=== PATIENT | female | born 1945 | race African-American/Black ===

== ENCOUNTER 2021-11-03 10:41 | Outpatient (CLI) | payer OTHER, SELFPAY ==
--- OUTSIDE RECORDS SUMMARY | 2021-11-16 12:40 | XMS_ITS | Encounter Summary ---
:1945 Author Organization [employer] [facility] [employer] Address [address] [place] [id number] Phone Care Team Providers Name Role Phone Unavailable Primary Care Provider Unavailable Reason for Visit Reason Onset Date Comments Results 10/01/2019 Encounter Details Date Type Department Care Team Description 10/01/2019 [facility] Deena Hadley RN Results [address] [place] [address] Social History Tobacco Use Types Packs/Day Years Used Date Never Smoker Alcohol Use Standard Drinks/Week Comments Yes 0 (1 standard drink = 0.6 oz pure Alcoho lic Drinks/day: 1 -2 glass of alcohol) wine per week Sex Assigned at Date Recorded Not on file documented as of this encounter Miscellaneous Notes Telephone Encounter - Deena Hadley RN - 10/01/2019 2:01 PM CDT Courtney stopped her amlodipine, valsartan and chlorthalidone after the phone visit on 08/07. I did confirm that she was taking coreg and furosemide BID as prescribed. Telephone Encounter - Deena Hadley RN - 10/01/2019 12:29 PM CDT Pt report to Dr. Kern the amlodipine was stopped. He asked that I call and have her check her pill bottles to make sure she was not still on this. I left a detailed message for Courtney and Irma, her daughter. I instructed them to call back only if they realize she is taking amlodipine. elephone Encounter - Deena Hadley RN - 10/01/2019 10:[address] Kern, BP too high for safe biopsy today. Verbal orders to call in amlodipine 5mg BID, #60 with 5 refills. I called that to pharmacy, but also texted Dr. Kern to clarify as 10mg was already on pts med list qd. Wanted to clarify whether pt has stopped this or she did not report to him that she was on it, etc. documented in this encounter Plan of Treatment Not on filedocumented as of this encounter Visit Diagnoses Not on filedocumented in this encounter
--- OUTSIDE RECORDS SUMMARY | 2021-11-16 12:40 | XMS_ITS | Clinical Summary ---
:1945 Author Organization [facility] [employer] Address [address] [place] [phone] Phone Care Team Providers Name Role Phone Eusebia Whitaker MD Primary Care Provider Allergies Active Allergy Reactions Severity Noted Date Comments Simvastatin Dizziness 11/29/2017 Medications Medication Sig Dispensed Refills Start Date End Date Status Coenzyme Q10 (COQ10) 50 Take 1 capsule 0 02/05/2019 Active MG capsule daily acetaminophen (TYLENOL 8 Take 1 tab 0 02/07/2019 Active HOUR) 650 MG 8 hr tablet daily as needed oxybutynin (DITROPAN) 5 Take 1 tab by 0 02/05/2019 Active MG tablet mouth 2 times daily Multiple Vitamin tablet Take 1 tab 0 02/05/2019 Active daily Calcium Carbonate 500 MG Take 1 tab by 0 02/05/2019 Active chewable tablet mouth 2 times daily cholecalciferol (VITAMIN Take 1 tab 0 02/05/2019 Active D-3) 50 MCG (2000 UT) daily capsule atorvastatin (LIPITOR) Take 1 tab at 0 02/05/2019 Active 20 MG tablet bedtime furosemide (LASIX) 20 MG Take 1 tablet 180 tablet 1 08/11/2019 Active tablet (20 mg total) by mouth 2 (two) times a day carvedilol (COREG) 12.5 Take 1 tablet 180 tablet 1 08/11/2019 Active MG tablet (12.5 mg total) by mouth 2 (two) times a day with meals ferrous sulfate 325 (65 Take 325 mg by 0 Active Fe) MG tablet mouth 3 (three) times a day with meals amLODIPine (NORVASC) 5 Take 1 tablet 60 tablet 5 10/07/2019 Active MG tablet (5 mg total) by mouth 2 (two) times a day omeprazole (PriLOSEC) 20 Take 20 mg by [address] capsule mouth twice a day hydrALAZINE (APRESOLINE) TAKE 1 TABLET 270 tablet 1 04/30/2020 Active 25 MG tablet BY MOUTH THREE TIMES DAILY Active Problems Problem Noted Date Chronic kidney disease, stage 3 (moderate) 02/07/2019 Proteinuria 02/07/2019 Anemia 02/07/2019 FPC current use of non-steroidal anti-inflammato ameya 02/07/2019 Essential (primary) hypertension 02/07/2019 Hyperlipidemia 02/07/2019 Family History Medical History Relation Comments Kidney disease Neg Hx Social History Tobacco Use Types Packs/Day Years Used Date Never Smoker Smokeless Tobacco: Never Used Alcohol Use Standard Drinks/Week Comments Yes 0 (1 standard drink = 0.6 oz pure Alcoho lic Drinks/day: 1 -2 glass of alcohol) wine per week Sex Assigned at Date Recorded Not on file Last Filed Vital Signs Vital Sign Reading Time Taken Comments Blood Pressure 176/74 11/28/2019 12:28 PM CDT Pulse 60 11/28/2019 12:28 PM CDT Temperature 36.8 ??C (98.2 ??F) 11/28/2019 12:28 PM CDT Respiratory Rate - - Oxygen Saturation - - Inhaled Oxygen Concentration - - Weight 84.4 kg (186 lb) 11/28/2019 12:28 PM CDT Height 157.5 cm (5' 2) 11/28/2019 12:28 PM CDT Body Mass Index 34.02 11/28/2019 12:28 PM CDT Plan of Treatment Health Maintenance Due Date Last Done Comments Pneumococcal PPSV23/PCV13 65+ Years / High and Highest 0 Risk (1 - PCV) Influenza Vaccine (#1) 2021 Insurance Payer Benefit Plan / Subscriber ID Effective Dates Phone Addre ss Type Group PM INTERFACED PM INTERFACED 2019-Prese INSURANCE INSURANCE - OPEN nt Advance Directives For more information, please contact: [phone] (Available ) Documents on File Type Date Recorded Patient Sawyer Helper Explanati on Advance Directives and Living Will 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
--- OUTSIDE RECORDS SUMMARY | 2021-11-16 12:40 | XMS_ITS | Encounter Summary ---
:1945 Author Organization [employer] Address [address] [place] [address] Phone Care Team Providers Name Role Phone Unavailable Primary Care Provider Unavailable Reason for Visit Reason Onset Date Comments Med Refill 08/08/2019 Encounter Details Date Type Department Care Team Description 08/08/2019 Refill [facility] Deena Hadley RN [address] [facility] [address] [place], [place] [address] Social History Tobacco Use Types Packs/Day Years Used Date Never Smoker Alcohol Use Standard Drinks/Week Comments Yes 0 (1 standard drink = 0.6 oz pure Alcoho lic Drinks/day: 1 -2 glass of alcohol) wine per week Sex Assigned at Date Recorded Not on file documented as of this encounter Miscellaneous Notes Telephone Encounter - Deena Hadley RN - 08/08/2019 1:45 PM CDT Images from the original note were not included. Irma did call with the pharmacy information, but I was unable to find it in the [employer] database. Scripts called in as directed below. I faxed her labs order for 2 weeks. Will await those results and make further plans. MD Deena Harirson MA ?? D/C valsartan and Chlorthalidone Start Furosemide 20 mg BID , Coreg 12.5 mg BID ( monitor HR) . Irma will give you the details of local pharmacy in [place] when you call her. Labs at [place] in 2 wks. If stable / worse, pt will come back to [facility] and plan on getting a renal biopsy done. Labs - RFp, CBC, Iron panel , ferritin F/u 1 month documented in this encounter Plan of Treatment Not on filedocumented as of this encounter Visit Diagnoses Not on filedocumented in this encounter
--- OUTSIDE RECORDS SUMMARY | 2021-11-16 12:40 | XMS_ITS | Encounter Summary ---
:1945 Author Organization [facility] Address [address] [place] [address] Phone Care Team Providers Name Role Phone Eusebia Whitaker MD Primary Care Provider Encounter Details Date Type Department Care Team Description 12/25/2019 [facility] Deena Hadley, [place] [address] [facility] [address] [place], [place] [address] Social History Tobacco Use Types Packs/Day Years Used Date Never Smoker Smokeless Tobacco: Never Used Alcohol Use Standard Drinks/Week Comments Yes 0 (1 standard drink = 0.6 oz pure Alcoho lic Drinks/day: 1 -2 glass of alcohol) wine per week Sex Assigned at Date Recorded Not on file documented as of this encounter Miscellaneous Notes Telephone Encounter - Audi Maurer MD - 12/26/2019 12:26 PM CDT Sounds good. Thanks for update. elephone Encounter - Deena Hadley RN - 12/25/2019 3:33 PM CDT Courtney was scheduled for ECHO on 12/15. I never got the report and when I called [facility] they said she didn't have it done. I talked with her daughter, Irma, today. Courtney was admitted to [facility] in [place] shortly after visit here. ECHO was done there, results available in Care Everywhere.She also said that Dr. Whitaker has recommended they transfer nephrology care closer to home. They have an apt with Dr. Weeks, nephrology, on 01/07/20. I wished them well. documented in this encounter Plan of Treatment Not on filedocumented as of this encounter Visit Diagnoses Not on filedocumented in this encounter Care Teams Bulk Gas Specialist Relationship Specialty Start Date End Date Eusebia Whitaker MD PCP - General Family Medicine 11/24/19 [address] [facility] [address] [place] [address] documented as of this encounter
--- OUTSIDE RECORDS SUMMARY | 2021-11-16 12:40 | XMS_ITS | Encounter Summary ---
:1945 Author Organization [employer] Address [address] [place] [address] Phone Care Team Providers Name Role Phone Unavailable Primary Care Provider Unavailable Reason for Visit Reason Comments Med Refill Encounter Details Date Type Department Care Team Description 10/01/2019 Refill [facility] Adrian Kern MD [address] [facility] [address] [facility] [address] [place] [address] [place] [address] [phone] (Wo rk) Social History Tobacco Use Types Packs/Day Years Used Date Never Smoker Alcohol Use Standard Drinks/Week Comments Yes 0 (1 standard drink = 0.6 oz pure Alcoho lic Drinks/day: 1 -2 glass of alcohol) wine per week Sex Assigned at Date Recorded Not on file documented as of this encounter Miscellaneous Notes Telephone Encounter - Deena Hadley RN - 10/07/2019 12:08 PM CDT P documented in this encounter Plan of Treatment Not on filedocumented as of this encounter Visit Diagnoses Not on filedocumented in this encounter
--- OUTSIDE RECORDS SUMMARY | 2021-11-16 12:40 | XMS_ITS | Encounter Summary ---
:1945 Author Organization [facility] Address [address] [place] [address] Phone Care Team Providers Name Role Phone Eusebia Whitaker MD Primary Care Provider Reason for Visit Reason Comments Med Refill Encounter Details Date Type Department Care Team Description 04/30/2020 Refill [facility] Audi Maurer MD [address] [facility] [address] [facility] [address] [place] [address] [place] [address] [phone] (Wo rk) Social History Tobacco Use Types Packs/Day Years Used Date Never Smoker Smokeless Tobacco: Never Used Alcohol Use Standard Drinks/Week Comments Yes 0 (1 standard drink = 0.6 oz pure Alcoho lic Drinks/day: 1 -2 glass of alcohol) wine per week Sex Assigned at Date Recorded Not on file documented as of this encounter Plan of Treatment Not on filedocumented as of this encounter Visit Diagnoses Not on filedocumented in this encounter Care Teams Rehab Director Relationship Specialty Start Date End Date Eusebia Whitaker MD PCP - General Family Medicine 11/24/19 [address] [place] [address] documented as of this encounter
--- OUTSIDE RECORDS SUMMARY | 2021-11-16 12:40 | XMS_ITS | Encounter Summary ---
:1945 Author Organization [facility] [employer] Address [address] [place] [phone] Phone Care Team Providers Name Role Phone Eusebia Whitaker MD Primary Care Provider Reason for Visit Reason Onset Date Comments Lab results 11/10/2019 Encounter Details Date Type Department Care Team Description 11/10/2019 Telephone [facility] Shahrzad Choi RN Lab results [address] [place] [address] Social History Tobacco Use Types Packs/Day Years Used Date Never Smoker Alcohol Use Standard Drinks/Week Comments Yes 0 (1 standard drink = 0.6 oz pure Alcoho lic Drinks/day: 1 -2 glass of alcohol) wine per week Sex Assigned at Date Recorded Not on file documented as of this encounter Miscellaneous Notes Telephone Encounter - Deena Hadley RN - 11/24/2019 10:23 AM CDT [facility] called back this am. BP's have been 170-180/80-90's. Courtney is taking hydralazine 10mg BID still. I confirmed with Dr. Maurer that it would be okay to increase to the new order of 25mg TID and let Little know. New RX called in to the pharmacy. She knows to get Courtney started on this now so that we can see the effect Sunday at the apt. elephone Encounter - Deena Hadley RN - 11/21/2019 2:11 PM CDT LVM for [facility] with apt date and time and asking her to call to discuss BP log (and then recommendations). elephone Encounter - Audi Maurer MD - 11/20/2019 3:22 PM CDT I can see her at noon on 11/27. Will need to recheck iron profile then and see if she qualifies for [facility]. Bring home BP log. Increase hydralazine to 25 mg TID if BP > 140/90 consistently . elephone Encounter - Deena Hadley RN - 11/13/2019 2:19 PM CDT Records on your desk. Let me know if you have new recs. elephone Encounter - Audi Maurer MD - 11/13/2019 12:19 PM CDT Increase hydralazine to 12.5 mg TID> Let me know if we were able to get her records/ labs. Check how home Bp is doing. If still struggling, will add on to one of the clinic days. Telephone Encounter - Deena Hadley RN - 11/12/2019 10:17 AM CDT Update 11/11. I will get records from [facility] to confirm the information below. Irma called in to report that Courtney was seen this week for low hgb. They started omeprazole BID and said that Upper GI and colonoscopy from last year looked good. They recommended follow-up here for HTN. BP in their office was 180/89. They started hydralazine 10mg BID. I reviewed the other meds on our list with Irma who affirms Courtney is taking them all as directed. You mentioned follow-up. First available with you is 12/11. See [employer]AT W[employer]ER/PA? Overbook? elephone Encounter - Audi Maurer MD - 11/10/2019 9:37 PM CDT Thanks for the update. Agree that she needs work up for anemia with her PCP in setting of hemoccult positive stool. If the work up is neg, then she may need Aranesp. I had asked her to get back to us with labs and Bp log in 2 wks after attempted Bx. Please see if wecan get those lab results. Does she have an appt set up with me in near future? elephone Encounter - Shahrzad Choi RN - 11/10/2019 4:21 PM CDT Message from front end specialist that patient's daughter was asking for most recent labs to be faxed to Dr. Henson, pt's PCP. The most recent labs ordered by anyone in our clinic was 10/01/[address] Kern was attempting biopsy. I faxed those to Dr. Henson's office and attempted to daughter but there was no answer. They apparently were at a visit with Dr. Henson when Irma called. elephone Encounter - Shahrzad Choi RN - 11/10/2019 9:[address] Maurer and Deena Solis, pt's daughter, called to report that her mother has been feeling very fatigued and is sleeping all the time. Her BP has been averaging 171/80 but she was so concerned about the fatigue that she ran labs at her work (? Location) without orders (not sure how she was able to do that). She reports a Hgb of 9.2 (10.2 10/01/2019) with a creatinine of 2.3 (2.79 10/01/2019) . She also reports that the patient saw a provider at [facility] in [place] about two weeks ago and a hemoccult test was positive but nothing was done at that time. She has not seen any blood in the stool. Stool is dark butshe is taking iron supplements. She denies SOB or lightheadedness. I told her to contact the [facility] and advise on the drop in hgb in light of the positive Hemoccult test since we do not have any of these results. She will try to fax them to us. Otherwise, I recommended ER visit if she feels SOB, lightheaded, etc. brendanmented in this encounter Plan of Treatment Not on filedocumented as of this encounter Visit Diagnoses Not on filedocumented in this encounter Care Teams Hat Cone Inspector Relationship Specialty Start Date End Date Eusebia Whitaker MD PCP - General Family Medicine 11/24/[address] [place] [address] documented as of this encounter
--- OUTSIDE RECORDS SUMMARY | 2021-11-16 12:40 | XMS_ITS | Encounter Summary ---
:1945 Author Organization [facility] Address [address] [address] Phone Care Team Providers Name Role Phone Eusebia Whitaker MD Primary Care Provider Encounter Details Date Type Department Care Team Description 11/28/2019 Orders Only [facility] Audi Maurer MD [address] [facility] [address] [place] [address] [place], [place] [address] (Wo rk) Social History Tobacco Use Types [...] Not on filedocumented as of this encounter Procedures Procedure Name Priority Date/Time Associated Comments Diagnosis IMMUNOFIXATION (VLADIMIR), Routine 11/28/2019 11:55 Re sults for this URINE AM CDT procedure are i n the results section. MICROALBUMIN, RANDOM Routine 11/28/2019 11:55 Res ults for this URINE WITH CREATININE AM CDT proced ure are in the results section. URINALYSIS, COMPLETE, Routine 11/28/2019 11:55 Re sults for this W/ REFLEX TO CULTURE AM CDT procedu re are in the results section. KAPPA/LAMBDA FREE LIGHT Routine 11/28/2019 11:55 Results for this CHAINS, QN, SERUM AM CDT procedure are in the results section. VITAMIN D, 25-HYDROXY, Routine 11/28/2019 11:55 R esults for this SERUM AM CDT procedure are i n the results section. CBC (INCLUDES Routine 11/28/2019 11:55 Results fo r this DIFFERENTIAL/PLATELETS) AM CDT proc edure are in the results section. RENAL FUNCTION PANEL Routine 11/28/2019 11:55 Res ults for this (RFP) AM CDT procedure are i n the results section. RETICULOCYTE COUNT, Routine 11/28/2019 11:55 Resu lts for this SERUM AM CDT procedure are i n the results section. IMMUNOFIXATION, SERUM Routine 11/28/2019 11:55 Re sults for this AM CDT procedure are i n the results section. FERRITIN, SERUM Routine 11/28/2019 11:55 Results for this AM CDT procedure are i n the results section. ERYTHROPOIETIN, SERUM Routine 11/28/2019 11:55 Re sults for this AM CDT procedure are i n the results section. IRON AND TIBC, SERUM Routine 11/28/2019 11:55 Res ults for this AM CDT procedure are i n the results section. PTH INTACT W/O CALCIUM, Routine 11/28/2019 11:55 Results for this SERUM AM CDT procedure are i n the results section. documented in this encounter Results Vitamin D, 25-Hydroxy, Serum (11/28/2019 11:55 AM CDT) athologist Signature Calcidiol, 34 30 - 100 [facility] - Serum/Plasma ng/mL NISHA (NANCY) Comment: Vitamin D Status ? 25-OH Vitam in D: Deficiency: ?<20 ng/mL Insufficiency: ? 20 - 29 ng/mL Optimal: ? > or = 30 ng/mL For 25-OH Vitamin D testing on patients on D2-supplementation and patients for whom quantitation of D2 and D3 fractions is required, the QuestAssureD(TM) 25-OH VIT D, (D2,D3), LC/MS/MS is recomm ended: order code 32537 (patients >2yrs). See Note 1 Note 1 For additional information, please refer to http://education.[employer]/fa q/WAY523 (This link is being provided for informa tional/ educational purposes only.) Specimen Anatomical Collection Method Collection Time Receive d Time (Source) Location / / Volume Laterality 11/28/2019 11:55 11/28/2019 AM CDT 11:57 AM CDT Resulting Agency Comment Performing Organization Information: ?Site ID: [id number] ?Name: [facility] ?Address: [address] [place] [address] [place] [address] ?Director: Ramiro Fitzpatrick M.D. Audi Maurer MD LAB BLOOD ORDERABLES Performing Organization Address City/State/ZIP Code Phon e Number [facility] - [place] (WDL) (ABNORMAL) PTH Intact w/o Calcium, Serum (11/28/2019 11:55 AM CDT) athologist Signature PTH, Intact, 153 (H) 14 - 64 [facility] - Serum/Plasma pg/mL [place] (WDL) Comment: Interpretive Guide ?Intact PTH ? Calcium ? ------- Normal Parathyroid ?Normal ? Normal Hypoparathyroidism ?Low or Low Rebecca l ?Low Hyperparathyroidism ?? Primary ?Normal or H igh ? High ?? Secondary ?High ? Normal or Low ?? Tertiary ? High ? High Non-Parathyroid ?? Hypercalcemia ?Low or Low Nor mal ?High Specimen Anatomical Collection Method Collection Time Receive d Time (Source) Location / / Volume Laterality 11/28/2019 11:55 11/28/2019 AM CDT 11:57 AM CDT Resulting Agency Comment Performing Organization Information: ?Site ID: [id number] ?Name: [facility] ?Address: [address] [place], [place] [address] [address] ?Director: Ramiro Fitzpatrick M.D. Audi Maurer MD LAB BLOOD ORDERABLES Performing Organization Address City/[facility]/ZIP Code Phon e Number [facility] [place] ([place]) Ferritin, Serum (11/28/2019 11:55 AM CDT) P athologist Signature Ferritin, 42 16 - 288 [facility] - Serum/Plasma ng/mL [place] (WDL) Specimen Anatomical Collection Method Collection Time Receive d Time (Source) Location / / Volume Laterality 11/28/2019 11:55 11/28/2019 AM CDT 11:57 AM CDT Resulting Agency Comment Performing Organization Information: ?Site ID: [id number] ?Name: [facility] ?Address: [address] [place], [place] [address], [place] [address] ?Director: Ramiro Fitzpatrick M.D. Audi Maurer MD LAB BLOOD ORDERABLES Performing Organization Address City/[facility]/ZIP Code Phon e Number [facility] [place] ([place]) Erythropoietin, Serum (11/28/2019 11:55 AM CDT) Patholo gist Method Time Signature Erythropoietin 10.2 2.6 - 18.5 [facility] - (EPO), Serum/Plasma mIU/mL [place] (WDL) Specimen Anatomical Collection Method Collection Time Receive d Time (Source) Location / / Volume Laterality 11/28/2019 11:55 11/28/2019 AM CDT 11:57 AM CDT Resulting Agency Comment Performing Organization Information: ?Site ID: [id number] ?Name: [facility] ?Address: [address] [place], [place] [address] [address] ?Director: Ramiro Fitzpatrick M.D. Audi Maurer MD LAB BLOOD ORDERABLES Performing Organization Address City/State/ZIP Code Phon e Number [facility] [place] ([place]) (ABNORMAL) [place] and Lambda Free Light Chains, Qn, Serum (11/28/2019 11:55 AM CDT) P athologist Signature [place] light 86.3 (H) 3.3 - 19.4 [facility] - chains, free, mg/L [place] Serum (WDL) Lambda light 38.2 (H) 5.7 - 26.3 [facility] - chains, free, mg/L [place] Serum/Plasma (WDL) [place] light 2.26 (H) 0.26 - [facility] - chains, 1.65 [place] free/Lambda (WDL) light chains, free, Serum Comment: Free kappa/lambda ratio in serum of norm al individuals is 0.26-1.65. Excess production of free kappa or lambda chains can alter this ratio. Monoclonal free light chains are found in serum of patients wi th multiple myeloma, Waldenstrom's macroglobulinemia , mu-heavy chain disease, primary amyloidosis, light nikos n deposition disease, monoclonal gammopathy of undete rmined significance, and lymphoproliferative di sorders. Measurement of free light chain concentr ation in serum is useful for diagnosis, prognosis, farhan toring disease activity and following response to thera py of these disorders. Specimen Anatomical Collection Method Collection Time Receive d Time (Source) Location / / Volume Laterality 11/28/2019 11:55 11/28/2019 AM CDT 11:57 AM CDT Resulting Agency Comment Performing Organization Information: ?Site ID: [id number] ?Name: [facility] ?Address: [address] [place] [address] [place] [address] ?Director: Ramiro Fitzpatrick M.D. Audi Maurer MD LAB BLOOD ORDERABLES Performing Organization Address City/State/ZIP Code Phon e Number [facility] [place] ([place]) Immunofixation, Serum (11/28/2019 11:55 AM CDT) Component Value Ref Test Analysis Performed Pathologis t Range Method Time At Signature Immunofixation No monoclonal [facility] - for Serum/Plasma immunoglobulin [place] detected. (WDL) Specimen Anatomical Collection Method Collection Time Receive d Time (Source) Location / / Volume Laterality 11/28/2019 11:55 11/28/2019 AM CDT 11:57 AM CDT Resulting Agency Comment Performing Organization Information: ?Site ID: [id number] ?Name: [facility] ?Address: [address] [place], [place] [address], [place] [address] ?Director: Ramiro Fitzpatrick M.D. Audi Maurer MD LAB URINE ORDERABLES Performing Organization Address [facility] Phon e Number [facility] [place] ([place]) Immunofixation (VLADIMIR), Urine (11/28/2019 11:55 AM CDT) [facility] Method Time Signature Immunofixation for [facility] - Urine [place] (WDL) Comment: Polyclonal increase in the globulin mahendra on. ?? Polyclonal light chains are detected, ho wever, no monoclonal immunoglobulin or free light chain (Benc e-Alcaraz protein) is detected. Specimen Anatomical Collection Method Collection Time Receive d Time (Source) Location / / Volume Laterality 11/28/2019 11:55 11/28/2019 AM CDT 11:57 AM CDT Resulting Agency Comment Performing Organization Information: ?Site ID: [id number] ?Name: [facility] ?Address: [address] [place], [place] [address] [address] ?Director: Ramiro Fitzpatrick M.D. Audi Maurer MD LAB BLOOD ORDERABLES Performing Organization Address [facility] e Number [facility] [place] ([place]) (ABNORMAL) CBC (includes Differential/Platelets) (11/28/2019 11:55 AM CDT) [facility] Method Time Signature Leukocytes, Blood 5.6 3.8 - [facility] - 10.8 [place] Thousand/ (WDL) uL Erythrocytes 3.28 (L) 3.80 - [facility] - (RBC) 5.10 [place] Million/u (WDL) L Hemoglobin (HGB) 9.4 (L) 11.7 - [facility] - 15.5 g/dL [place] (WDL) Hematocrit (HCT) 28.2 (L) 35.0 - [facility] - 45.0 % [place] (WDL) MCV 86.0 80.0 - [facility] - 100.0 fL [place] (WDL) MCH 28.7 27.0 - [facility] - 33.0 pg [place] (WDL) MCHC 33.3 32.0 - [facility] - 36.0 g/dL [place] (WDL) Erythrocyte 13.3 11.0 - [facility] - Distribution 15.0 % [place] Width (RDW) (WDL) Platelets, Blood 251 140 - 400 [facility] - Thousand/ [place] uL (WDL) Platelet mean 11.5 7.5 - [facility] - volume, Blood 12.5 fL [place] (WDL) Neutrophils, 2,145 1,500 - [facility] - Blood 7,800 [place] cells/uL (WDL) Lymphocytes, 2,638 850 - [facility] - Blood 3,900 [place] cells/uL (WDL) Monocytes, Blood 454 200 - 950 [facility] - cells/uL [place] (WDL) Eosinophils, 314 15 - 500 [facility] - Blood cells/uL [place] (WDL) Basophils, Blood 50 0 - 200 [facility] - cells/uL [place] (WDL) Neutrophils/100 38.3 % [facility] - leukocytes, Blood [place] (WDL) Lymphocytes/100 47.1 % [facility] - leukocytes, Blood [place] (WDL) Monocytes/100 8.1 % [facility] - leukocytes, Blood [place] (WDL) Eosinophils/100 5.6 % [facility] - leukocytes, Blood [place] (WDL) Basophils/100 0.9 % [facility] - leukocytes, Blood [place] (WDL) Specimen Anatomical Collection Method Collection Time Receive d Time (Source) Location / / Volume Laterality 11/28/2019 11:55 11/28/2019 AM CDT 11:57 AM CDT Resulting Agency Comment Performing Organization Information: ?Site ID: [id number] ?Name: [facility] ?Address: [address] [place] [address] [place] [address] ?Director: Ramiro Fitzpatrick M.D. Audi Maurer MD LAB BLOOD ORDERABLES Performing Organization Address City/State/ZIP Code Phon e Number [facility] [place] ([place]) (ABNORMAL) Urinalysis, Complete, w/ Reflex to Culture (11/28/2019 11:55 AM CDT) [facility] Method Time Signature Color of Urine YELLOW YELLOW [facility] [place] (WDL) Appearance of CLEAR CLEAR [facility] - Urine [place] (WDL) Specific 1.007 1.001 - [facility] - gravity of 1.035 [place] Urine (WDL) pH of Urine 7.0 5.0 - 8.0 [facility] [place] (WDL) Glucose, Urine NEGATIVE NEGATIVE [facility] [place] (WDL) Bilirubin, NEGATIVE NEGATIVE [facility] - total, Urine [place] (WDL) Ketones, Urine NEGATIVE NEGATIVE [facility] [place] (W[place]) Hemoglobin, NEGATIVE NEGATIVE [facility] - Urine [place] (WDL) Protein, Urine 2+ (A) NEGATIVE [facility] [place] (WDL) Nitrite, Urine NEGATIVE NEGATIVE [facility] [place] (WDL) Leukocyte NEGATIVE NEGATIVE [facility] - esterase, [place] Urine (WDL) Leukocytes, NONE SEEN < OR = 5 [facility] - Urine sediment /HPF [place] (WDL) Erythrocytes, NONE SEEN < OR = 2 [facility] - Urine sediment /HPF [place] (WDL) Epithelial NONE SEEN < OR = 5 [facility] - cells, /HPF [place] squamous, (WDL) Urine sediment Bacteria, NONE SEEN NONE SEEN [facility] - Urine sediment /HPF [place] (WDL) Hyaline casts, NONE SEEN NONE SEEN [facility] - Urine sediment /LPF [place] (WDL) Bacteria NO CULTURE [facility] - identified, INDICATED [place] Urine (WDL) Specimen Anatomical Collection Method Collection Time Receive d Time (Source) Location / / Volume Laterality 11/28/2019 11:55 11/28/2019 AM CDT 11:57 AM CDT Resulting Agency Comment Performing Organization Information: ?Site ID: [id number] ?Name: [facility] ?Address: [address] [place] [address] [place] [address] ?Director: Ramiro Fitzpatrick M.D. Audi Maurer MD LAB BLOOD ORDERABLES Performing Organization Address City/State/ZIP Code Phon e Number [facility] [place] ([place]) Reticulocyte Count, Serum (11/28/2019 11:55 AM CDT) athologist Signature Reticulocytes/ 1.2 % [facility] - 100 [place] (WDL) erythrocytes, Blood Reticulocytes, 39,360 20,000 - [facility] - Blood 80,000 [place] (WDL) cells/uL Specimen Anatomical Collection Method Collection Time Receive d Time (Source) Location / / Volume Laterality 11/28/2019 11:55 11/28/2019 AM CDT 11:57 AM CDT Resulting Agency Comment Performing Organization Information: ?Site ID: [id number] ?Name: [facility] ?Address: [address] [place] [address] [place] [address] ?Director: Ramiro Fitzpatrick M.D. Audi Maurer MD LAB BLOOD ORDERABLES Performing Organization Address City/State/ZIP Code Phon e Number [facility] [place] ([place]) (ABNORMAL) Renal Function Panel (RFP) (11/28/2019 11:55 AM CDT) P athologist Signature Glucose, 90 65 - 99 [facility] - Serum/Plasma mg/dL [place] (WDL) Comment: ? Fasting reference interv al Urea nitrogen, Serum/Plasma 43 (H) 7 - 25 mg/dL [facility] [place] (WDL) (BUN) Creatinine, Serum/Plasma 2.85 (H) 0.60 - 0.93 mg/dL [facility] [place] (WDL) Comment: For patients >49 years of age, the refer ence limit for Creatinine is approximately 13% high er for people identified as -Kyrgyz. eGFR, non 15 (L) > OR = 60 mL/min/1.73m2 [facility] [place] (WDL) [place] eGFR, 18 (L) > OR = 60 mL/min/1.73m2 [facility] [place] (WDL) Urea 15 6 - 22 (calc) [facility] [place] (WDL) nitrogen/Creatinine, Serum/Plasma Sodium, Serum/Plasma 138 135 - 146 mmol/L QU EST - [place] (WDL) Potassium, Serum/Plasma 4.1 3.5 - 5.3 mmol/L [facility] [place] (WDL) Chloride, Serum/Plasma 104 98 - 110 mmol/L Q [facility] - [place] (WDL) Carbon dioxide CO2), 25 20 - 32 mmol/L QUES T - [place] (WDL) total, Serum/Plasma Calcium, Serum/Plasma 8.8 8.6 - 10.4 mg/dL Q [facility] - [place] (WDL) Phosphate, Serum/Plasma 4.5 (H) 2.1 - 4.3 mg/dL [facility] [place] (WDL) Albumin, Serum/Plasma 3.6 3.6 - 5.1 g/dL [facility] - [place] (WDL) Specimen Anatomical Collection Method Collection Time Receive d Time (Source) Location / / Volume Laterality 11/28/2019 11:55 11/28/2019 AM CDT 11:57 AM CDT Resulting Agency Comment Performing Organization Information: ?Site ID: [id number] ?Name: [facility] ?Address: [address] [place], [place] [address] [place] [address] ?Director: Ramiro Fitzpatrick M.D. Audi Maurer MD LAB BLOOD ORDERABLES Performing Organization Address [facility] Phon e Number [facility] [place] (W[place]) Iron and TIBC, Serum (11/28/2019 11:55 AM CDT) P athologist Signature Iron, 68 45 - 160 [facility] - Serum/Plasma mcg/dL [place] (WDL) Iron binding 271 250 - 450 [facility] - capacity, mcg/dL [place] (WDL) Serum/Plasma (calc) Iron 25 16 - 45 % [facility] - saturation, (calc) [place] (WDL) Serum/Plasma Specimen Anatomical Collection Method Collection Time Receive d Time (Source) Location / / Volume Laterality 11/28/2019 11:55 11/28/2019 AM CDT 11:57 AM CDT Resulting Agency Comment Performing Organization Information: ?Site ID: [id number] ?Name: [facility] ?Address: [address] [place], [place] [address] [address] ?Director: Ramiro Fitzpatrick M.D. Audi Maurer MD LAB BLOOD ORDERABLES Performing Organization Address [facility] Phon e Number [facility] [place] (WDL) (ABNORMAL) Microalbumin, Random Urine with Creatinine (11/28/2019 11:55 AM CDT) P athologist Signature Creatinine, 27 20 - 275 [facility] - Urine mg/dL [place] (WDL) Microalbumin, 33.4 See Note: [facility] - Urine mg/dL [place] (WDL) Comment: Reference Range: Reference Range Not established Albumin/Creatinine, Urine 1,237 (H) <30 mcg/mg creat [facility] [place] (WDL) Comment: The ADA defines abnormalities in albumin excretion as follows: Category ? Result (mcg/mg crea tinine) Normal ?<30 Microalbuminuria ? 30-299 Clinical albuminuria ?? > OR = 300 The ADA recommends that at least two of three specimens collected within a 3-6 month p eriod be abnormal before considering a patient to be within a diagnostic category. Specimen Anatomical Collection Method Collection Time Receive d Time (Source) Location / / Volume Laterality 11/28/2019 11:55 11/28/2019 AM CDT 11:57 AM CDT Resulting Agency Comment Performing Organization Information: ?Site ID: ?Name: [facility] ?Address: [address] [place] [address] [place] [address] ?Director: Ramiro Fitzpatrick M.D. Audi Maurer MD LAB BLOOD ORDERABLES Performing Organization Address City/State/ZIP Code Phon e Number [facility] [place] ([place]) documented in this encounter Visit Diagnoses Not on filedocumented in this encounter Care Teams Secured Entrance Monitor Relationship Specialty Start Date End Date Eusebia Whitaker MD PCP - General Family Medicine 11/24/[address] [place] [address] documented as of this encounter
--- OUTSIDE RECORDS SUMMARY | 2021-11-16 12:40 | XMS_ITS | Encounter Summary ---
:1945 Author Organization [email or web address] Address [address] [place] [address] Phone Care Team Providers Name Role Phone Eusebia Whitaker MD Primary Care Provider Encounter Details Date Type Department Care Team Description 11/28/2019 Office Visit [facility] Gisela Maurer MD Chronic kidney disease stage 4 (CMS-HCC) (Primary Dx); [facility] [address] Essential (primary) hyperten mana; [address] Anemia in chronic kidney disease; [address] [place] [address] [place], [place] [phone] Social History Tobacco Use Types Packs/Day Years Used Date Never Smoker Smokeless Tobacco: Never Used Alcohol Use Standard Drinks/Week Comments Yes 0 (1 standard drink = 0.6 oz pure Alcoho lic Drinks/day: 1 -2 glass of alcohol) wine per week Sex Assigned at Date Recorded Not on file documented as of this encounter Last Filed Vital Signs Vital Sign Reading [...] Mass Index 34.02 11/28/2019 12:28 PM CDT documented in this encounter Progress Notes Audi Maurer MD - 11/28/2019 12:00 PM CDT Images from the original note were not included. 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 Cr continues to trend up and has gone from 1.8 in 03/27 to 2.9 now . UACR is lower at 1.5 gm SIFE, UIFE, SFLC KOMAL, ANCA, C3, C4, Hepatitis panel - all neg Renal USG with doppler - > s/o medical renal dis. No MARILU. 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 Suspicion of prior glomerular process as she had nephrotic range proteinuria with Cr of 1 going back to 2016 . ? Other proteinuric dis like Membranous, FSGS. Attempted biopsy but canceled due to high blood pressure. Given her creatinine was actually improving on last check, and all her vasculitic studies were negative, I do not see any indication to proceedwith biopsy at this point. Continue with conservative management with focus on controlling her blood pressure well. 2) Proteinuria: see above. 3) Anemia: Hemoglobin continues to trend down. Occult stool blood positive and patient is advised to follow-up with primary care provider and repeated test. EGD/colonoscopy reportedly negative in past February. -Repeat hemoglobin, reticulocyte counts, erythropoietin level, serum immunofixation and free light chain ratio today. May need to start on Aranesp referred to hematology based on results. Check iron panel. 4) [facility] (current) use of non-steroidal anti-inflammatories (NSAID): now off it. Counseled against further use 5) Essential hypertension: -Increase furosemide to 40 mg the morning and 20 mg the evening. -Increase hydralazine to 25 mg 3 times daily this week. -Heart rate is borderline, so keep Coreg at 12.5 mg twice daily. -Continue amlodipine. -Continue taking blood pressure at home. Will send in BP log. If blood pressure high, then will increase hydralazine. -Check echocardiogram. 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 Rchcek today 8 Renal cyst - simple cysts on CT scan . F/u in 3 months REASON FOR Visit : CKD HISTORY OF PRESENT ILLNESS: Courtney Berry is a 74 y.o. female with PMH of female from [facility] , whom I had initially seen in 02/25 for evaluation of proteinuric kidney dis. Renal hX - 11/13/16 - > Cr 1.1 11/13/17 - > Cr 1 ; UA = trace blood, 0-2 RBC/ hpf, protein 2+, UACR 3300 mg/ g 11/26/18 - Cr 1. 8 ; UACR 4.1 gm (11/26/18), 3.3 gm/ g ( 11/13/18) 03/27 - Cr 1.9 07/27 - Cr 2.7 08/03 - Cr 2.9 11/25- Cr 2.3 Vasculitis panel, SIFE/ SFLC - WNL Other pertinent hx - HTN - for most of adult life. Historically difficult to control Osteo-Arthritis - was taking lot of Aleve over last couple years , now stopped for past 1 years Hyperlipidemia - on Lipitor Pre-diabetes - HBA1C 5.6-5.8 Interval Hx - She returns for follow-up. A biopsy was planned when she traveled over from [place] but had to be canceled on the day of biopsy secondary to extremely high blood pressure. Systolic was over 200s. She was started on amlodipine 5 mg twice daily. In recent time her hydralazine dose has been escalated. She still remains hypertensive. Blood pressure at home is similar to the readings here around 170s over 60s. Her daughter had called in complaining of increasing fatigue. She was noted to be more anemic on labwork done earlier this month at her primary care's office. Hemoglobin was down to 9.5 from 10.8 lastmonth. Fecal occult blood was positive. Vitamin B12 level is okay. Iron level was not checked. Creatinine was better than baseline at 2.3. Her PCP increased dose of PPI . She reprotedly had a negative Upper GI endoscopy and colonoscopy in February 2019. Still continues to remain dark on iron replacement. She continues to have fatigue. Reports exertional dyspnea. No chest pain. No orthopnea. Has stable lower extremity edema. Last echo wasfrom 2009 which showed ejection fraction of 60 to 65%. PAST MEDICAL HISTORY: Past Medical History: Diagnosis Date ??? Chronic kidney disease (CKD) ??? Essential (primary) hypertension ??? Hyperlipidemia PAST SURGICAL HISTORY: No past surgical history on file. MEDICATIONS: Current Outpatient Medications: ??? acetaminophen (TYLENOL 8 HOUR) 650 MG 8 hr tablet, Take 1 tab daily as needed, Disp: , Rfl: 0 ??? amLODIPine (NORVASC) 5 MG tablet, Take 1 tablet (5 mg total) by mouth 2 (two) times a day, Disp:60 tablet, Rfl: 5 ??? atorvastatin (LIPITOR) 20 MG tablet, Take 1 tab at bedtime, Disp: , Rfl: 0 ??? Calcium Carbonate 500 MG chewable tablet, Take 1 tab by mouth 2 times daily, Disp: , Rfl: 0 ??? carvedilol (COREG) 12.5 MG tablet, Take 1 tablet (12.5 mg total) by mouth 2 (two) times a day with meals, Disp: 180 tablet, Rfl: 1 ??? cholecalciferol (VITAMIN D-3) 50 MCG (2000 UT) capsule, Take 1 tab daily, Disp: , Rfl: 0 ??? Coenzyme Q10 (COQ10) 50 MG capsule, Take 1 capsule daily, Disp: , Rfl: 0 ??? ferrous sulfate 325 (65 Fe) MG tablet, Take 325 mg by mouth 3 (three) times a day with meals, Disp: , Rfl: ??? furosemide (LASIX) 20 MG tablet, Take 1 tablet (20 mg total) by mouth 2 (two) times a day, Disp:180 tablet, Rfl: 1 ??? hydrALAZINE (APRESOLINE) 25 MG tablet, Take 1 tablet (25 mg total) by mouth 3 (three) times a day, Disp: 270 tablet, Rfl: 1 ??? Multiple Vitamin tablet, Take 1 tab daily, Disp: , Rfl: 0 ??? omeprazole (PriLOSEC) [address] capsule, Take 20 mg by mouth twice a day, Disp: , Rfl: ??? oxybutynin (DITROPAN) 5 MG tablet, Take 1 tab by mouth 2 times daily, Disp: , Rfl: 0 Today's Medication Changes Accurate as of November 28, 2019 12:36 PM. If you have any questions, ask your nurse or doctor. Discontinued Aspirin 81 81 MG chewable tablet Generic drug: aspirin Stopped by: AUDI MAURER MD traMADol 50 MG tablet Commonly known as: ULTRAM Stopped by: AUDI MAURER MD ALLERGIES: Allergies Allergen Reactions ??? Simvastatin Dizziness REVIEW OF SYSTEMS: A comprehensive review of systems was performed and found to be negative except as described here orabove. SOCIAL HISTORY: Non smoker. Lives with daughter. FAMILY MEDICAL HISTORY: Family History Problem Relation Age of Onset ??? Kidney disease Neg Hx No Family hx of kidney dis. PHYSICAL EXAM: Deferred d/t phone visit. 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 [facility] MD [facility] [phone] No orders of the defined types were placed in this encounter. documented in this encounter Plan of Treatment Not on filedocumented as of this encounter Visit Diagnoses Diagnosis Chronic kidney disease stage 4 (CMS-HCC) - Primary Essential (primary) hypertension Anemia in chronic kidney disease Isolated proteinuria documented in this encounter Care Teams Sandblaster Glass Relationship Specialty Start Date End Date Eusebia Whitaker MD PCP - General Family Medicine 11/24/[address] [place] [id number] documented as of this encounter
--- OUTSIDE RECORDS SUMMARY | 2021-11-16 12:40 | XMS_ITS | Encounter Summary ---
:1945 Author Organization [employer] [facility] Address [address], [place] [address] Phone Care Team Providers Name Role Phone Unavailable Primary Care Provider Unavailable Reason for Visit Reason Onset Date Comments Results 09/03/2019 Encounter Details Date Type Department Care Team Description 09/03/2019 [facility] Deena Hadley RN Results [address] [place] [address] Social History Tobacco Use Types Packs/Day Years Used Date Never Smoker Alcohol Use Standard Drinks/Week Comments Yes 0 (1 standard drink = 0.6 oz pure Alcoho lic Drinks/day: 1 -2 glass of alcohol) wine per week Sex Assigned at Date Recorded Not on file documented as of this encounter Miscellaneous Notes Telephone Encounter - Audi Maurer MD - 09/05/2019 11:35 AM CDT Thanks Telephone Encounter - Deena Hadley RN - 09/04/2019 2:35 PM CDT They would like to proceed with bx. We have scheduled her for September [address] Kern at [facility]. Prep instructions were mailed to Irma. Courtney will travel home that weekend before. elephone Encounter - Deena Hadley RN - 09/03/2019 2:11 PM CDT I called and left a detailed message with Courtney's daughter to review with Courtney. I gave the recommendation to start oral iron and to discuss bx or routine follow-up. elephone Encounter - Deena Hadley RN - 09/03/2019 2:10 PM CDT ----- Message from Audi Maurer MD sent at 08/29/2019 1:28 PM CDT ----- Regarding: labs Renal function same. Anemic with low iron sats. Recc - As per our last discussion , if we still want to reach a definitive diagnosis , then we will need todo a kidney biopsy. We had discussed that biopsy has higher probability of showing hypertensive changes but cannot completely rule out other pathologies. If they want to pursue renal biopsy , we should facilitate it , preferably within next few weeks. Start iron sulfate 1 tab tid documented in this encounter Plan of Treatment Not on filedocumented as of this encounter Visit Diagnoses Not on filedocumented in this encounter
--- OUTSIDE RECORDS SUMMARY | 2021-11-16 12:40 | XMS_ITS | Encounter Summary ---
:1945 Author Organization [employer] [facility] [employer] Address [address] [place] [address] Phone Care Team Providers Name Role Phone Unavailable Primary Care Provider Unavailable Reason for Visit Reason Onset Date Comments Hypertension 10/07/2019 Encounter Details Date Type Department Care Team Description 10/07/2019 [facility] Deena Hadley RN Hypertension [address] [facility] [address] [place], [place] [id number] Social History Tobacco Use Types Packs/Day Years Used Date Never Smoker Alcohol Use Standard Drinks/Week Comments Yes 0 (1 standard drink = 0.6 oz pure Alcoho lic Drinks/day: 1 -2 glass of alcohol) wine per week Sex Assigned at Date Recorded Not on file documented as of this encounter Miscellaneous Notes Telephone Encounter - Deena Hadley RN - 10/07/2019 12:[address] Maurer and I reviewed the chart and plans for Courtney. Dr. Maurer would like to see BP log after 2 weeks on the amlodipine. Then he would repeat BMP. 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 He would support a visit with Courtney to discuss. I left a message for Irma with the above plan. I asked that she call in 1 more week with the BP log, unless she had any questions or concerns sooner. documented in this encounter Plan of Treatment Not on filedocumented as of this encounter Visit Diagnoses Not on filedocumented in this encounter
--- OUTSIDE RECORDS SUMMARY | 2021-11-16 12:41 | XMS_ITS | Encounter Summary ---
:1945 Author Organization [employer] Address [address] [place] [address] Phone Care Team Providers Name Role Phone Unavailable Primary Care Provider Unavailable Encounter Details Date Type Department Care Team Description 08/08/2019 Office Visit [facility] Gisela Maurer MD Chronic kidney disease stage 4 (CMS-HCC) (Primary Dx); [facility] [address] Isolated proteinuria; [address] Essential (primary) hypertension; [address] Hyperlipidemia, not otherwise specified; [place] [address] [place], [place] Anemia in chronic kidney dis ease [phone] Social History Tobacco Use Types Packs/Day Years Used Date Never Smoker Alcohol Use Standard Drinks/Week Comments Yes 0 (1 standard drink = 0.6 oz pure Alcoho lic Drinks/day: 1 -2 glass of alcohol) wine per week Sex Assigned at Date Recorded Not on file documented as of this encounter Progress Notes Audi Maurer MD - 08/08/2019 12:00 PM CDT [facility] Date of : 1945 Date of Service: 08/08/19 This visit was completed via telephone due to the restrictions of COVID-19 pandemic.?? All issues as below were discussed and addressed but no physical exam was performed. The patient verbally consented to the visit. Phone time documentation: 12:00- 12:32. [address] communication with pt and her 2 daughters. Spent 32 minutes with the patient on phone discussing health concerns. ASSESSMENT AND RECOMMENDATIONS: 1) Chronic kidney disease [...] renal dis. No MARILU. 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 Also , she had nephrotic range proteinuria with Cr of 1 going back to 2017 . ? Other proteinuric dis like Membranous, FSGS. Discussed conservative Mx with preparation for dialysis vs renal biopsy to reach conclusive diagnosis. Family would prefer to get a biopsy done and dictate management based on that. Plan - D/C valsartan and Chlorthalidone Start Furosemide 20 mg BID , Coreg 12.5 mg BID ( monitor HR) Labs at [place] in 2 wks. If stable / worse, pt will come back to [facility] and plan on getting a renal biopsy done. 2) Proteinuria: see above. 3) Anemia: Hgb 10.1 on 08/01/19. Iron sat 22% in Feb. Check with next lab. 4) emt intermediate (current) use of non-steroidal anti-inflammatories (NSAID): now off it. Counseled against further use 5) Essential hypertension: Borderline control. BP meds changed as above. 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 Check with next labs 8 Renal cyst - simple cysts on CT scan . F/u in 1 month REASON FOR Visit : CKD HISTORY OF PRESENT ILLNESS: Courtney Berry is a 74 y.o. female with PMH of female from [facility] , whom I had initially seen in [...] - Cr 2.7 08/03 - Cr 2.9 Vasculitis panel, SIFE/ SFLC - WNL Other pertinent hx - HTN - for most of adult life. USed to be very high for several years , now under control for last couple years with adjustment in meds. Osteo-Arthritis - was taking lot of Aleve over last couple years , now stopped for past 1 years Hyperlipidemia - on Lipitor Pre-diabetes - HBA1C 5.6-5.8 Pt is currently in [place] with her daughter. Reports she is doing well. BP avg is 145/81. Continues to struggle with Sciatica. Trace leg swelling. No dyspnea. No nausea, vomiting, diarrhea No chest pain, shortness of breath No dizziness, lightheadedness No fever, chills No new rash. PAST MEDICAL HISTORY: Past Medical History: Diagnosis Date ??? Chronic kidney disease (CKD) ??? Essential (primary) hypertension ??? Hyperlipidemia PAST SURGICAL HISTORY: No past surgical history on file. MEDICATIONS: Current Outpatient Medications: ??? acetaminophen (TYLENOL 8 HOUR) 650 MG 8 hr tablet, Take 1 tab daily as needed, Disp: , Rfl: 0 ??? amLODIPine (NORVASC) 10 MG tablet, Take 1 tab daily, Disp: , Rfl: 0 ??? aspirin (ASPIRIN 81) 81 MG chewable tablet, Take 1 tab daily, Disp: , Rfl: 0 ??? atorvastatin (LIPITOR) 20 MG tablet, Take 1 tab at bedtime, Disp: , Rfl: 0 ??? Calcium Carbonate 500 MG chewable tablet, Take 1 tab by mouth 2 times daily, Disp: , Rfl: 0 ??? chlorthalidone (HYGROTON) 25 MG tablet, Take 1 tab every other day, Disp: , Rfl: 0 ??? cholecalciferol (VITAMIN D-3) 50 MCG (1999 UT) capsule, Take 1 tab daily, Disp: , Rfl: 0 ??? Coenzyme Q10 (COQ10) 50 MG capsule, Take 1 capsule daily, Disp: , Rfl: 0 ??? Multiple Vitamin tablet, Take 1 tab daily, Disp: , Rfl: 0 ??? oxybutynin (DITROPAN) 5 MG tablet, Take 1 tab by mouth 2 times daily, Disp: , Rfl: 0 ??? traMADol (ULTRAM) 50 MG tablet, Take 1 tab by mouth every 8-12 hours, Disp: , Rfl: 0 ??? valsartan (DIOVAN) 160 MG tablet, Take 1 tab daily, Disp: , Rfl: 0 ALLERGIES: Allergies not on file REVIEW OF SYSTEMS: A comprehensive review of systems was performed and found to be negative except as described here orabove. SOCIAL HISTORY: Non smoker. Lives with daughter. FAMILY MEDICAL HISTORY: Family History Problem Relation Age of Onset ??? Kidney disease Neg Hx No Family hx of kidney dis. PHYSICAL EXAM: Deferred d/t phone visit. LABS: Historical labs were reviewed with the patient. Available imaging studies were reviewed. Audi Maurer MD [facility] [phone] No orders of the defined types were placed in this encounter. documented in this encounter Plan of Treatment Not on filedocumented as of this encounter Visit Diagnoses Diagnosis Chronic kidney disease stage 4 (CMS-HCC) - Primary Isolated proteinuria Essential (primary) hypertension Hyperlipidemia, not otherwise specified Anemia in chronic kidney disease documented in this encounter
--- OUTSIDE RECORDS SUMMARY | 2021-11-16 12:41 | XMS_ITS | Encounter Summary ---
:1945 Author Organization [employer] Address [address] [place] [address] Phone Care Team Providers Name Role Phone Unavailable Primary Care Provider Unavailable Encounter Details Date Type Department Care Team Description 02/07/2019 Orders Only [facility] Audi Maurer MD [address] [facility] [address] [facility] [address] [place] [address] [place] [address] [phone] (Wo rk) Social History Tobacco Use Types [...] Procedure Name Priority Date/Time Associated Comments Diagnosis MICROALBUMIN, RANDOM Routine 02/07/2019 9:20 AM R esults for this URINE WITH CREATININE CDT proced ure are in the results section. ANCA SCREEN W/ Routine 02/07/2019 9:20 AM Results for this VASCULITIDES (MPO, CDT procedure are in PR3) the results section. URINALYSIS, COMPLETE, Routine 02/07/2019 9:20 AM Results for this W/ REFLEX TO CULTURE CDT procedu re are in the results section. KAPPA/LAMBDA FREE Routine 02/07/2019 9:20 AM Resu lts for this LIGHT CHAINS, QN, CDT procedure are in SERUM the results section. VITAMIN D, Routine 02/07/2019 9:20 AM Results f or this 25-HYDROXY, LC/MS/MS CDT procedu re are in the results section. HEPATITIS C AB W/REFL Routine 02/07/2019 9:20 AM Results for this TO HCV RNA, QN, PCR, CDT procedu re are in SERUM the results section. TOTAL PROTEIN W/ Routine 02/07/2019 9:20 AM Resul ts for this CREATININE, URINE, CDT procedure are in RANDOM the results section. CBC (INCLUDES Routine 02/07/2019 9:20 AM Results for this DIFFERENTIAL/PLATELET CDT proced ure are in S) the results section. RENAL FUNCTION PANEL Routine 02/07/2019 9:20 AM R esults for this (RFP) CDT procedure are i n the results section. C-REACTIVE PROTEIN Routine 02/07/2019 9:20 AM Res ults for this (CRP), SERUM CDT procedure are i n the results section. IMMUNOFIXATION, URINE Routine 02/07/2019 9:20 AM Results for this CDT procedure are i n the results section. COMPLEMENT C3 + C4 Routine 02/07/2019 9:20 AM Res ults for this CDT procedure are i n the results section. IMMUNOFIXATION, SERUM Routine 02/07/2019 9:20 AM Results for this CDT procedure are i n the results section. HEPATITIS B SURFACE Routine 02/07/2019 9:20 AM Re sults for this AB, QL, SERUM CDT procedure are in the results section. HEPATITIS B SURFACE Routine 02/07/2019 9:20 AM Re sults for this AG (HBSAG) W/ REFLEX CDT procedu re are in CONFIRM the results section. FERRITIN, SERUM Routine 02/07/2019 9:20 AM Result s for this CDT procedure are i n the results section. ANTINUCLEAR Routine 02/07/2019 9:20 AM Results f or this ANTIBODIES (KOMAL), IFA CDT proced ure are in W/ REFL TITER AND the result s PATTERN section. IRON AND TIBC, SERUM Routine 02/07/2019 9:20 AM R esults for this CDT procedure are i n the results section. PTH INTACT W/O Routine 02/07/2019 9:20 AM Results for this CALCIUM, SERUM CDT procedure are in the results section. documented in this encounter Results (ABNORMAL) Total Protein w/ Creatinine, Urine, Random (02/07/2019 9:20 AM CDT) Analysis Performed At Patho logist Time Signature Creatinine, 50 20 - 275 [facility] - Urine mg/dL [place] (WDL) Protein/Creati 3,600 (H) 21 - 161 [facility] - nine, Urine mg/g creat [place] (WDL) Protein/Creati 3.600 (H) 0.021 - [facility] - nine, Urine 0.161 [place] mg/mg (WDL) creat Protein, Urine 180 (H) 5 - 24 [facility] - mg/dL [place] (WDL) Specimen Anatomical Collection Method Collection Time Receive d Time (Source) Location / / Volume Laterality 02/07/2019 9:20 AM 9 9:25 CDT AM CDT Resulting Agency Comment Performing Organization Information: ?Site ID: [id number] ?Name: [facility] ?Address: [address] [place] [address] [place] [address] ?Director: Ramiro Fitzpatrick M.D. Audi Maurer MD LAB URINE ORDERABLES Performing Organization Address City/State/ZIP Code Phon e Number [facility] [place] ([place]) Vitamin D, 25-Hydroxy, LC/MS/MS (02/07/2019 9:20 AM CDT) athologist Signature Calcidiol, 33 30 - 100 [facility] - Serum/Plasma ng/mL [place] (WDL) Comment: Vitamin D Status ? 25-OH Vitam in D: Deficiency: ?<20 ng/mL Insufficiency: ? 20 - 29 ng/mL Optimal: ? > or = 30 ng/mL For 25-OH Vitamin D testing on patients on D2-supplementation and patients for whom quantitation of D2 and D3 fractions is required, the QuestAssureD(TM) 25-OH VIT D, (D2,D3), LC/MS/MS is recomm ended: order code 16038 (patients >2yrs). For more information on this test, go to : http://education.Kingspoke.Dialoggy/fa q/RVC508 (This link is being provided for informational/educational purposes only. ) Specimen Anatomical Collection Method Collection Time Receive d Time (Source) Location / / Volume Laterality 02/07/2019 9:20 AM 9 9:25 CDT AM CDT Resulting Agency Comment Performing Organization Information: ?Site ID: [id number] ?Name: [facility] ?Address: [address] [place] [address] [place], [place] [address] ?Director: Ramiro Fitzpatrick M.D. Audi Maurer MD LAB BLOOD ORDERABLES Performing Organization Address City/State/ZIP Code Phon e Number [facility] [place] ([place]) (ABNORMAL) PTH Intact w/o Calcium, Serum (02/07/2019 9:20 AM CDT) athologist Signature PTH, Intact, 101 (H) 14 - 64 [facility] - Serum/Plasma [...] Time (Source) Location / / Volume Laterality 02/07/2019 9:20 AM 9 9:25 CDT AM CDT Resulting Agency Comment Performing Organization Information: ?Site ID: [id number] ?Name: [facility] ?Address: [address] [place], [place] [address] [address] ?Director: Ramiro Fitzpatrick M.D. Audi Maurer MD LAB BLOOD ORDERABLES Performing Organization Address [facility]/ZIP Code Phon e Number [facility] [place] ([place]) Ferritin, Serum (02/07/2019 9:20 AM CDT) P athologist Signature Ferritin, 54 16 - 288 [facility] - Serum/Plasma ng/mL [place] (WDL) Specimen Anatomical Collection Method Collection Time Receive d Time (Source) Location / / Volume Laterality 02/07/2019 9:20 AM 9 9:25 CDT AM CDT Resulting Agency Comment Performing Organization Information: ?Site ID: ?Name: [facility] ?Address: [address] [place], [place] [address], [place] [address] ?Director: Ramiro Fitzpatrick M.D. Audi Maurer MD LAB BLOOD ORDERABLES Performing Organization Address [facility]/ZIP Code Phon e Number [facility] [place] ([place]) Hepatitis C AB w/Refl To HCV RNA, QN, PCR, Serum (02/07/2019 9:20 AM CDT) Analysis Performed At Patho logist Time Signature Hepatitis C NON-REACTI NON-REACTI [facility] - virus Ab, VE VE [place] Serum/Plasma (WDL) Hepatitis C 0.06 <1.00 [facility] - virus Ab [place] Signal/Cutoff, (WDL) Serum/Plasma Comment: HCV antibody was non-reactive. There is no laboratory evidence of HCV infection. In most cases, no further action is requ ired. However, if recent HCV exposure is suspected, a t est for HCV RNA (test code 45983) is suggested. For additional information please refer to http://education.Kingspoke.Dialoggy/fa q/EON36a8 (This link is being provided for informa tional/ educational purposes only.) Specimen Anatomical Collection Method Collection Time Receive d Time (Source) Location / / Volume Laterality 02/07/2019 9:20 AM 9 9:25 CDT AM CDT Resulting Agency Comment Performing Organization Information: ?Site ID: [id number] ?Name: [facility] ?Address: [address] [place], [place] [address]jerzy [place], [place] [address] ?Director: Ramiro Fitzpatrick M.D. Audi Maurer MD LAB BLOOD ORDERABLES Performing Organization Address [facility]/ZIP Code Phon e Number [facility] [place] ([place]) Hepatitis B Surface AB, QL, Serum (02/07/2019 9:20 AM CDT) Analysis Performed At Patho logist Time Signature Hepatitis B NON-REACTI NON-REACTI [facility] - virus surface VE VE [place] Ab, Serum (WDL) Specimen Anatomical Collection Method Collection Time Receive d Time (Source) Location / / Volume Laterality 02/07/2019 9:20 AM 9 9:25 CDT AM CDT Resulting Agency Comment Performing Organization Information: ?Site ID: [id number] ?Name: [facility] ?Address: [address] [place], [place] [address]jerzy [place], [place] [address] ?Director: Ramiro Fitzpatrick M.D. Audi Maurer MD LAB BLOOD ORDERABLES Performing Organization Address [facility] Code Phon e Number [facility] [place] ([place]) Hepatitis B Surface Ag (HBsAg) w/ Reflex Confirm (02/07/2019 9:20 AM CDT) Patholo gist Method Time Signature Hepatitis B NON-REACTIVE NON-REACT [facility] - virus surface BOBY [place] Ag, (WDL) Serum/Plasma Hepatitis B CANCELED [facility] - virus surface [place] Ag, (WDL) Serum/Plasma Comment: Result canceled by the ancillar y. Specimen Anatomical Collection Method Collection Time Receive d Time (Source) Location / / Volume Laterality 02/07/2019 9:20 AM 9 9:25 CDT AM CDT Resulting Agency Comment Performing Organization Information: ?Site ID: [id number] ?Name: [facility] ?Address: [address] [place], [place] [address]jerzy [place], [place] [address] ?Director: Ramiro Fitzpatrick M.D. Audi Maurer MD LAB BLOOD ORDERABLES Performing Organization Address City/State/ZIP Code Phon e Number [facility] ANCA Screen w/ Vasculitides (MPO, PR3) (02/07/2019 9:20 AM CDT) [facility] Method Time Signature Myeloperoxidase Ab, <1.0 AI [facility] - Serum [place] (WDL) Comment: ? Value ?Interpretation ? ----- ? <1.0 ? No Antibody Dete cted ? > or = 1.0 ?? Antibody Detected ? Autoantibodies to myeloperoxidase (MPO) are commonly associated with the following small-vess el vasculitides: microscopic polyangiitis, polyarteritis nodosa, Churg-Iliana synd edwige, necrotizing and crescentic glomeruloneph ritis and occasionally granulomatosis with polyang iitis (GPA, Gianna's). The perinuclear IFA pa ttern, (p-ANCA) is based largely on autoantibod y to myeloperoxidase which serves as the prim ayden antigen. These autoantibodies are present in acti ve disease. Proteinase 3 Ab, Serum <1.0 AI [facility] [place] (WDL) Comment: ? Value ?Interpretation ? ----- ? <1.0 ? No Antibody Dete cted ? > or = 1.0 ?? Antibody Detected ? Autoantibodies to proteinase-3 (SD-3) ar e accepted as characteristic for granulomatosis with p olyangiitis (GPA, Gianna's), and are detectable in 95% of the histologically proven cases. The cytopla smic IFA pattern, (c-ANCA), is based largely on a utoantibody to SD-3 which serves as the primary antigen . These autoantibodies are present in acti ve disease. Specimen Anatomical Collection Method Collection Time Receive d Time (Source) Location / / Volume Laterality 02/07/2019 9:20 AM 9 9:25 CDT AM CDT Resulting Agency Comment Performing Organization Information: ?Site ID: [id number] ?Name: [facility] ?Address: [address] [place] [address] [place] [address] ?Director: Ramiro Fitzpatrick M.D. Audi Maurer MD LAB BLOOD ORDERABLES Performing Organization Address City/State/ZIP Code Phon e Number [facility] [place] ([place]) (ABNORMAL) [place] and Lambda Free Light Chains, Qn, Serum (02/07/2019 9:20 AM CDT) athologist Signature [place] light 56.2 (H) 3.3 - 19.4 [facility] - chains, free, mg/L [place] Serum (WDL) Lambda light 28.8 (H) 5.7 - 26.3 [facility] - chains, free, mg/L [place] Serum/Plasma (WDL) [place] light 1.95 (H) 0.26 - [facility] - chains, 1.65 [...] Time (Source) Location / / Volume Laterality 02/07/2019 9:20 AM 9 9:25 CDT AM CDT Resulting Agency Comment Performing Organization Information: ?Site ID: [id number] ?Name: [facility] ?Address: [address] [place] [address] [place] [address] ?Director: Ramiro Fitzpatrick M.D. Audi Maurer MD LAB BLOOD ORDERABLES Performing Organization Address City/[facility]/ZIP Code Phon e Number [facility] [place] ([place]) C-Reactive Protein (CRP), Serum (02/07/2019 9:20 AM CDT) P athologist Signature C reactive 0.5 <8.0 mg/L [facility] - protein, [place] (WDL) Serum/Plasma Specimen Anatomical Collection Method Collection Time Receive d Time (Source) Location / / Volume Laterality 02/07/2019 9:20 AM 9 9:25 CDT AM CDT Resulting Agency Comment Performing Organization Information: ?Site ID: [id number] ?Name: [facility] ?Address: [address] [place], [place] [address] [address] ?Director: Ramiro Fitzpatrick M.D. Audi Maurer MD LAB BLOOD ORDERABLES Performing Organization Address [facility] Code Phon e Number [facility] [place] ([place]) Immunofixation, Serum (02/07/2019 9:20 AM CDT) [facility] gist Method Time Signature Immunofixation for [facility] - Serum/Plasma [place] (WDL) Comment: No monoclonal immunoglobulin detected. Specimen Anatomical Collection Method Collection Time Receive d Time (Source) Location / / Volume Laterality 02/07/2019 9:20 AM 9 9:25 CDT AM CDT Resulting Agency Comment Performing Organization Information: ?Site ID: [id number] ?Name: [facility] ?Address: [address] [place] [address] [place] [address] ?Director: Ramiro Fitzpatrick M.D. Audi Maurer MD LAB URINE ORDERABLES Performing Organization Address [facility] Phon e Number [facility] [place] ([place]) Antinuclear Antibodies (KOMAL), IFA w/ Refl Titer and Pattern (02/07/2019 9:20 AM CDT) P athologist Signature KOMAL, Serum NEGATIVE NEGATIVE [facility] [place] ([place]) Comment: KOMAL IFA is a first line screen for detec ting the presence of up to approximately 150 auto antibodies in various autoimmune diseases. A negative KOMAL IFA result suggests an KOMAL-associated autoimmune di sease is not present at this time, but is not definit boby. If there is high clinical suspicion for Sjogren's syndrome, testing for anti-SS-A/Ro antibody should be considered. Anti-Treasure-1 antibody should be considered for clinically suspected inflammatory myopathies. AC-0: Negative International Consensus on KOMAL Patterns (https://doi.org/10.1515/ciib-9383-0851) For additional information, please refer to http://education.Techpoint.Dialoggy/fa q/SYH296 (This link is being provided for informa tional/ educational purposes only.) ?? Specimen Anatomical Collection Method Collection Time Receive d Time (Source) Location / / Volume Laterality 02/07/2019 9:20 AM 9 9:25 CDT AM CDT Resulting Agency Comment Performing Organization Information: ?Site ID: [id number] ?Name: [facility] ?Address: [address] [place], [place] [address] [address] ?Director: Ramiro Fitzpatrick M.D. Audi Maurer MD LAB BLOOD ORDERABLES Performing Organization Address City/State/ZIP Code Phon e Number [facility] [place] ([place]) Immunofixation, Urine (02/07/2019 9:20 AM CDT) [facility] Method Time Signature Immunofixation for [facility] - Urine [place] (WDL) Comment: Polyclonal increase in the globulin mahendra on. ?? Polyclonal light chains are detected, ho wever, no monoclonal immunoglobulin or free light chain (Benc e-Alcaraz protein) is detected. Specimen Anatomical Collection Method Collection Time Receive d Time (Source) Location / / Volume Laterality 02/07/2019 9:20 AM 9 9:25 CDT AM CDT Resulting Agency Comment Performing Organization Information: ?Site ID: [id number] ?Name: [facility] ?Address: [address] [place] [address] [place] [address] ?Director: Ramiro Fitzpatrick M.D. Audi Maurer MD LAB BLOOD ORDERABLES Performing Organization Address City/State/ZIP Code Phon e Number [facility] [place] ([place]) (ABNORMAL) CBC (includes Differential/Platelets) (02/07/2019 9:20 AM CDT) [facility] Method Time Signature Leukocytes, Blood 8.5 3.8 - [facility] - 10.8 [place] Thousand/ (WDL) uL Erythrocytes 4.03 3.80 - [facility] - (RBC) 5.10 [place] Million/u (WDL) L Hemoglobin (HGB) 11.2 (L) 11.7 - [facility] - 15.5 g/dL [place] (WDL) Hematocrit (HCT) 33.3 (L) 35.0 - [facility] - 45.0 % [place] (WDL) MCV 82.6 80.0 - [facility] - 100.0 fL [place] (WDL) MCH 27.8 27.0 - [facility] - 33.0 pg [place] (WDL) MCHC 33.6 32.0 - [facility] - 36.0 g/dL [place] (WDL) Erythrocyte 13.8 11.0 - [facility] - Distribution 15.0 % [place] Width (RDW) (WDL) Platelets, Blood 316 140 - 400 [facility] - Thousand/ [place] uL (WDL) Platelet mean 11.0 7.5 - [facility] - volume, Blood 12.5 fL [place] (WDL) Neutrophils, 3,307 1,500 - [facility] - Blood 7,800 [place] cells/uL (WDL) Band form CANCELED 0 - 750 [facility] - neutrophils, cells/uL [place] Blood (WDL) Comment: Result canceled by the ancillar y. Metamyelocytes, Blood CANCELED 0 cells/uL [facility] [place] (WDL) Comment: Result canceled by the ancillar y. Myelocytes, Blood CANCELED 0 cells/uL [facility] [place] (W[place]) Comment: Result canceled by the ancillar y. Promyelocytes, Blood CANCELED 0 cells/uL [facility] [place] (WDL) Comment: Result canceled by the ancillar y. Lymphocytes, Blood 4,607 (H) 850 - 3,900 cells/uL [facility] [place] (WDL) Monocytes, Blood 493 200 - 950 cells/uL [facility] T - [place] (WDL) Eosinophils, Blood 43 15 - 500 cells/uL [facility] [place] ([place]) Basophils, Blood 51 0 - 200 cells/uL [facility] [place] ([place]) Blasts, Blood CANCELED 0 cells/uL [facility] [place] (WDL) Comment: Result canceled by the ancillar y. Nucleated erythrocytes, Blood CANCELED 0 cells/uL [facility] [place] (WDL) Comment: Result canceled by the ancillar y. Neutrophils/100 leukocytes, Blood 38.9 % [facility] [place] (W[place]) Band form neutrophils/100 leukocytes, Blood CANCELED % [facility] [place] (WDL) Comment: Result canceled by the ancillar y. Metamyelocytes/100 leukocytes, Blood CANCELED % [facility] [place] (WDL) Comment: Result canceled by the ancillar y. Myelocytes/100 leukocytes, Blood CANCELED % [facility] [place] (WDL) Comment: Result canceled by the ancillar y. Promyelocytes/100 leukocytes, Blood CANCELED % [facility] [place] (WDL) Comment: Result canceled by the ancillar y. Lymphocytes/100 leukocytes, Blood 54.2 % [facility] [place] ([place]) Variant lymphocytes/100 leukocytes, CANCELED 0 - 10 % [facility] [place] ([place]) Blood Comment: Result canceled by the ancillar y. Monocytes/100 leukocytes, Blood 5.8 % [facility] [place] (W[place]) Eosinophils/100 leukocytes, Blood 0.5 % [facility] [place] (W[place]) Basophils/100 leukocytes, Blood 0.6 % [facility] [place] (W[place]) Blasts/100 leukocytes, Blood CANCELED % Q [facility] - [place] (WDL) Comment: Result canceled by the ancillar y. Nucleated erythrocytes/100 CANCELED 0 /100 WBC QU EST - [place] (WDL) leukocytes, Blood Comment: Result canceled by the ancillar y. Service comment CANCELED [facility] [place] ([place]) Comment: Result canceled by the ancillar y. Specimen Anatomical Collection Method Collection Time Receive d Time (Source) Location / / Volume Laterality 02/07/2019 9:20 AM 9 9:25 CDT AM CDT Resulting Agency Comment Performing Organization Information: ?Site ID: [id number] ?Name: [facility] ?Address: [address] [place] [address] [place] [address] ?Director: Ramiro Fitzpatrick M.D. Audi Maurer MD LAB BLOOD ORDERABLES Performing Organization Address City/State/ZIP Code Phon e Number [facility] [place] ([place]) (ABNORMAL) Urinalysis, Complete, w/ Reflex to Culture (02/07/2019 9:20 AM CDT) [facility] Method Time Signature Color of Urine YELLOW YELLOW [facility] [place] ([place]) Appearance of CLEAR CLEAR [facility] - Urine [place] (WDL) Specific gravity 1.014 1.001 - [facility] - of Urine 1.035 [place] (WDL) pH of Urine 7.0 5.0 - 8.0 [facility] [place] ([place]) Glucose, Urine NEGATIVE NEGATIVE [facility] [place] ([place]) Bilirubin, NEGATIVE NEGATIVE [facility] - total, Urine [place] (WDL) Ketones, Urine NEGATIVE NEGATIVE [facility] [place] (W[place]) Hemoglobin, NEGATIVE NEGATIVE [facility] - Urine [place] (WDL) Protein, Urine 3+ (A) NEGATIVE [facility] [place] (W[place]) Nitrite, Urine NEGATIVE NEGATIVE [facility] [place] ([place]) Leukocyte NEGATIVE NEGATIVE [facility] - esterase, Urine [place] (WDL) Leukocytes, NONE SEEN < OR = 5 [facility] - Urine sediment /HPF [place] (WDL) Erythrocytes, NONE SEEN < OR = 2 [facility] - Urine sediment /HPF [place] (WDL) Epithelial NONE SEEN < OR = 5 [facility] - cells, squamous, /HPF [place] Urine sediment (WDL) Transitional CANCELED < OR = 5 [facility] - cells, Urine /HPF [place] sediment (WDL) Comment: Result canceled by the ancillar y. Epithelial cells, renal, Urine CANCELED < OR = 3 /HPF [facility] [place] (W[place]) sediment Comment: Result canceled by the ancillar y. Bacteria, Urine sediment NONE SEEN NONE SEEN /HPF [facility] [place] ([place]) Calcium oxalate crystals, CANCELED NONE OR FEW /HPF [facility] [place] (W[place]) Urine sediment Comment: Result canceled by the ancillar y. Triple phosphate crystals, CANCELED NONE OR FEW /HPF [facility] [place] (W[place]) Urine sediment Comment: Result canceled by the ancillar y. Urate crystals, Urine sediment CANCELED NONE OR FEW /HPF [facility] [place] (W[place]) Comment: Result canceled by the ancillar y. Amorphous sediment, Urine CANCELED NONE OR FEW /HPF [facility] [place] (W[place]) sediment Comment: Result canceled by the ancillar y. Crystals, Urine sediment CANCELED NONE SEEN /HPF [facility] [place] (W[place]) Comment: Result canceled by the ancillar y. Hyaline casts, Urine sediment NONE SEEN NONE SEEN /LPF [facility] [place] ([place]) Granular casts, Urine sediment CANCELED NONE SEEN /LPF [facility] [place] (WDL) Comment: Result canceled by the ancillar y. Casts, Urine sediment CANCELED NONE SEEN /LPF [facility] [place] ([place]) Comment: Result canceled by the ancillar y. Yeast, Urine sediment CANCELED NONE SEEN /HPF [facility] [place] ([place]) Comment: Result canceled by the ancillar y. Service comment CANCELED [facility] [place] ([place]) Comment: Result canceled by the ancillar y. Service comment CANCELED [facility] [place] ([place]) Comment: Result canceled by the ancillar y. Bacteria identified, Urine NO CULTURE INDICATED [facility] [place] (WDL) Specimen Anatomical Collection Method Collection Time Receive d Time (Source) Location / / Volume Laterality 02/07/2019 9:20 AM 9 9:25 CDT AM CDT Resulting Agency Comment Performing Organization Information: ?Site ID: [id number] ?Name: [facility] ?Address: [address] [place] [address] [place] [address] ?Director: Ramiro Fitzpatrick M.D. Audi Maurer MD LAB BLOOD ORDERABLES Performing Organization Address City/State/ZIP Code Phon e Number [facility] [place] ([place]) (ABNORMAL) Renal Function Panel (RFP) (02/07/2019 9:20 AM CDT) P athologist Signature Glucose, 83 65 - 99 [facility] - Serum/Plasma mg/dL [place] (WDL) Comment: ? Fasting reference interv al Urea nitrogen, Serum/Plasma 41 (H) 7 - 25 mg/dL [facility] [place] (WDL) (BUN) Creatinine, Serum/Plasma 1.98 (H) 0.60 - 0.93 mg/dL [facility] [place] (W[place]) Comment: For patients >49 years of age, the refer ence limit for Creatinine is approximately 13% high er for people identified as -Gabonese. eGFR, non 24 (L) > OR = 60 mL/min/1.73m2 [facility] [place] ([place]) [place] eGFR, 28 (L) > OR = 60 mL/min/1.73m2 [facility] [place] (W[place]) Urea nitrogen/Creatinine, 21 6 - 22 (calc) [facility] [place] (WDL) Serum/Plasma Sodium, Serum/Plasma 141 135 - 146 mmol/L QU EST - [place] (WDL) Potassium, Serum/Plasma 3.7 3.5 - 5.3 mmol/L [facility] [place] (WDL) Chloride, Serum/Plasma 106 98 - 110 mmol/L Q [facility] - [place] (WDL) Carbon dioxide CO2), 26 20 - 32 mmol/L [facility] T - [place] (WDL) total, Serum/Plasma Calcium, Serum/Plasma 9.2 8.6 - 10.4 mg/dL Q [facility] - [place] (WDL) Phosphate, Serum/Plasma 3.6 2.1 - 4.3 mg/dL [facility] [place] (WDL) Albumin, Serum/Plasma 3.8 3.6 - 5.1 g/dL [facility] [place] (W[place]) Specimen Anatomical Collection Method Collection Time Receive d Time (Source) Location / / Volume Laterality 02/07/2019 9:20 AM 9:25 CDT AM CDT Resulting Agency Comment Performing Organization Information: ?Site ID: [id number] ?Name: [facility] ?Address: [address] [place], [place] [address] [address] ?Director: Ramiro Fitzpatrick M.D. Audi Maurer MD LAB BLOOD ORDERABLES Performing Organization Address [facility] Phon e Number [facility] [place] ([place]) Iron and TIBC, Serum (02/07/2019 9:20 AM CDT) athologist Signature Iron, 62 45 - 160 [facility] - Serum/Plasma mcg/dL [place] ([place]) Iron binding 279 250 - 450 [facility] - capacity, mcg/dL [place] ([place]) Serum/Plasma (calc) Iron 22 16 - 45 % [facility] - saturation, (calc) [place] ([place]) Serum/Plasma Specimen Anatomical Collection Method Collection Time Receive d Time (Source) Location / / Volume Laterality 02/07/2019 9:20 AM 9 9:25 CDT AM CDT Resulting Agency Comment Performing Organization Information: ?Site ID: [id number] ?Name: [facility] ?Address: [address] [place] [address] [place] [address] ?Director: Ramiro Fitzpatrick M.D. Audi Maurer MD LAB BLOOD ORDERABLES Performing Organization Address [facility] Phon e Number [facility] [place] ([facility]) (ABNORMAL) Microalbumin, Random Urine with Creatinine (02/07/2019 9:20 AM CDT) athologist Signature Creatinine, 50 20 - 275 [facility] - Urine mg/dL [place] ([place]) Microalbumin, 116.5 See Note: [facility] - Urine mg/dL [place] ([place]) Comment: Reference Range: Reference Range Not established Verified by repeat analysis. Albumin/Creatinine, Urine 2,330 (H) <30 mcg/mg creat [facility] [place] [...] Time (Source) Location / / Volume Laterality 02/07/2019 9:20 AM 9 9:25 CDT AM CDT Resulting Agency Comment Performing Organization Information: ?Site ID: [id number] ?Name: [facility] ?Address: [address] [place] [address] [place] [address] ?Director: Ramiro Fitzpatrick M.D. Audi Maurer MD LAB BLOOD ORDERABLES Performing Organization Address [facility] Code Phon e Number [facility] [place] ([facility]) Complement C3 + C4 (02/07/2019 9:20 AM CDT) P athologist Signature Complement C3, 116 83 - 193 [facility] - Serum/Plasma mg/dL [place] ([place]) Complement C4, 27 15 - 57 [facility] - Serum/Plasma mg/dL [place] ([place]) Specimen Anatomical Collection Method Collection Time Receive d Time (Source) Location / / Volume Laterality 02/07/2019 9:20 AM 9 9:25 CDT AM CDT Resulting Agency Comment Performing Organization Information: ?Site ID: [id number] ?Name: [facility] ?Address: [address] [place], [place] [address] [address] ?Director: Ramiro Fitzpatrick M.D. Audi Maurer MD LAB BLOOD ORDERABLES Performing Organization Address City/[facility]/ZIP Code Phon e Number [facility] [facility]) documented in this encounter Visit Diagnoses Not on filedocumented in this encounter
--- OUTSIDE RECORDS SUMMARY | 2021-11-16 12:41 | XMS_ITS | Encounter Summary ---
:1945 Author Organization [facility] Address [address] [address] Phone Care Team Providers Name Role Phone Unavailable Primary Care Provider Unavailable Reason for Visit Reason Onset Date Comments Results 08/04/2019 Encounter Details Date Type Department Care Team Description 08/04/2019 [facility] Deena Hadley RN Results [address] [place], [place] [address] Social History Tobacco Use Types Packs/Day Years Used Date Never Smoker Alcohol Use Standard Drinks/Week Comments Yes 0 (1 standard drink = 0.6 oz pure Alcoho lic Drinks/day: 1 -2 glass of alcohol) wine per week Sex Assigned at Date Recorded Not on file documented as of this encounter Miscellaneous Notes Telephone Encounter - Deena Hadley RN - 08/08/2019 9:11 AM CDT Apt scheduled for today. elephone Encounter - Deena Hadley RN - 08/05/2019 9:30 AM CDT Message left with her daughter, Irma. I asked her to call back to discuss whether her mom would like to establish care in [place] or if she would be coming back to [place] soon and then we should probablyscheduled FUV here to discuss next steps. Telephone Encounter - Audi Maurer MD - 08/04/2019 3:27 PM CDT She should probably find a local flower stripper if there is no plan to return to [place]. She will likely need a renal biopsy. elephone Encounter - Deena Hadley RN - 08/04/2019 1:33 PM CDT Repeat labs from [facility] in [place] will be scanned in under MEDIA. Clay Maker is up again. Are you thinking biopsy? Should we schedule a phone visit with pt in [place]? When I last spoke with her daughter there was no return to [place] scheduled. documented in this encounter Plan of Treatment Not on filedocumented as of this encounter Visit Diagnoses Not on filedocumented in this encounter
--- OUTSIDE RECORDS SUMMARY | 2021-11-16 12:41 | XMS_ITS | Encounter Summary ---
:1945 Author Organization [facility] Address [address] [place] [address] Phone Care Team Providers Name Role Phone Unavailable Primary Care Provider Unavailable Reason for Visit Reason Onset Date Comments Renal Cyst 02/20/2019 Encounter Details Date Type Department Care Team Description 02/20/2019 Telephone [facility] Deena Hadley RN Renal Cyst [address] [place], [place] [phone] Social History Tobacco Use Types Packs/Day Years Used Date Never Smoker Alcohol Use Standard Drinks/Week Comments Yes 0 (1 standard drink = 0.6 oz pure Alcoho lic Drinks/day: 1 -2 glass of alcohol) wine per week Sex Assigned at Date Recorded Not on file documented as of this encounter Miscellaneous Notes Telephone Encounter - Deena Hadley RN - 03/13/2019 11:17 AM CST Message left for Courtney's daughter. elephone Encounter - Audi Maurer MD - 03/11/2019 2:11 PM CST Plz notify pt of CT scan findings. Simple cysts. No need for follow up imaging. PromimicTelephone Encounter - Deena Hadley RN - 03/11/2019 8:05 AM CST We had still not received the addended report for the CT done 02/17. The request made to [facility] was to have radiologist comment further on the renal cyst. I called again yesterday. The radiologist had dictated it but it was never transcribed and faxed. Per ambulance mechanic, The bilateral renal cysts are simple in appearance. No further workup is needed. Telephone Encounter - Deena Hadley RN - 02/20/2019 4:08 PM CST Per the request of Dr. Maurer, I called [facility] where pts CT abd/pelvis was done. He is looking for more comments on the renal cyst noted on the US, is it simple or complex for example. railway signal technician is going to give the note to radiologist who can add addendum and then refax the report. This is likely to not be today, but tomorrow. I will leave encounter open for Dr. Maurer to comment re: addended report. documented in this encounter Plan of Treatment Not on filedocumented as of this encounter Visit Diagnoses Not on filedocumented in this encounter
--- OUTSIDE RECORDS SUMMARY | 2021-11-16 12:41 | XMS_ITS | Encounter Summary ---
:1945 Author Organization [facility] Address [address] [place] [address] Phone Care Team Providers Name Role Phone Unavailable Primary Care Provider Unavailable Reason for Visit Reason Onset Date Comments Follow-up 06/20/2019 Encounter Details Date Type Department Care Team Description 06/20/2019 Telephone [facility] Deena Hadley RN Follow-up [address] [place], [place] [address] Social History Tobacco Use Types Packs/Day Years Used Date Never Smoker Alcohol Use Standard Drinks/Week Comments Yes 0 (1 standard drink = 0.6 oz pure Alcoho lic Drinks/day: 1 -2 glass of alcohol) wine per week Sex Assigned at Date Recorded Not on file documented as of this encounter Miscellaneous Notes Telephone Encounter - Deena Hadley RN - 06/23/2019 1:10 PM CDT Orders faxed to [facility] in [place]. Irma informed. elephone Encounter - Audi Maurer MD - 06/23/2019 10:20 AM CDT That's fine. She can get - RFP, CBC, UA, UPCR locally and have it sent to us. elephone Encounter - Deena Hadley RN - 06/20/2019 10:44 AM CDT Courtney is in [place] visiting family. She is not wanting to travel back in light of coronavirus. The only reason she would come back is her apt here on 3/23. Could we orders labs to be checked at a lab local to her to see if if/when apt would be needed? documented in this encounter Plan of Treatment Not on filedocumented as of this encounter Visit Diagnoses Not on filedocumented in this encounter
--- OUTSIDE RECORDS SUMMARY | 2021-11-16 12:41 | XMS_ITS | Encounter Summary ---
:1945 Author Organization [facility] Address [address] [place] [address] Phone Care Team Providers Name Role Phone Unavailable Primary Care Provider Unavailable Reason for Visit Reason Onset Date Comments Results 07/25/2019 Encounter Details Date Type Department Care Team Description 07/25/2019 Telephone [facility] Deena Hadley RN Results [address] [place] [phone] Social History Tobacco Use Types Packs/Day Years Used Date Never Smoker Alcohol Use Standard Drinks/Week Comments Yes 0 (1 standard drink = 0.6 oz pure Alcoho lic Drinks/day: 1 -2 glass of alcohol) wine per week Sex Assigned at Date Recorded Not on file documented as of this encounter Miscellaneous Notes Telephone Encounter - Deena Hadley RN - 07/25/2019 4:[address] Maurer, labs from 06/29 are worse. Oyster Unloader up to 2.71 from 1.9. Pt should hydrate well and recheckBMP, UA, alb/aix administrator ratio and CBC next week. She may need renal bx. Daughter will call her mother who is still in [place] with directions. Lab orders were faxed to 2,10E+07 used in June. If her mother is feeling bad in any way, she will call us. documented in this encounter Plan of Treatment Not on filedocumented as of this encounter Visit Diagnoses Not on filedocumented in this encounter
--- OUTSIDE RECORDS SUMMARY | 2021-11-16 12:42 | XMS_ITS | Encounter Summary ---
:1945 Author Organization [facility] Address [address] [place] [address] Care Team Providers Name Role Phone Unavailable Primary Care Provider Unavailable Encounter Details Date Type Department Care Team Description 10/17/2021 Orders Only Department of Radiology in [place], [place] COP WINDER, C.N.P. [address] [facility] [address] [place] [address] [place], [place] [phone] (Wo rk) Social History Tobacco Use Types Packs/Day Years Used Date Smoking Tobacco: Never Assessed Sex Assigned at Date Recorded Not on file documented as of this encounter Plan of Treatment Scheduled Procedures Name Priority Associated Diagnoses Date/Time PLACEMENT ARTERIOVENOUS GRAFT UPPER Chronic Kidn ey Disease Stage 5 EXTREMITY Glomerular Filtration Rate Less Than 15 (HCC) documented as of this encounter Visit Diagnoses Not on filedocumented in this encounter
--- OUTSIDE RECORDS SUMMARY | 2021-11-16 12:42 | XMS_ITS | Encounter Summary ---
:1945 Author Organization [facility] Address [address] [place] [address] Care Team Providers Name Role Phone Unavailable Primary Care Provider Unavailable Encounter Details Date Type Department Care Team Description 10/17/2021 Documentation Division of Nephrology and Justo Sauer R.N. Hypertension in [place], ( Work) [place] [address] [place] [phone] Social History Tobacco Use Types Packs/Day Years Used Date Smoking Tobacco: Never Assessed Sex Assigned at Date Recorded Not on file documented as of this encounter Progress Notes Justo Sauer R.N. - 10/17/2021 3:[address] Weeks CHIEF COMPLAINT/PURPOSE OF VISIT REASON FOR REFERRAL: ??Needs permanent access for hemodialysis HISTORY OF PRESENT ILLNESS ACCESS: ??Palindrome Catheter ?Date placed - 06/14/21 ?Provider - Maximo Tierney M.D. LOCATION OF ACCESS: ??Right internal jugular ? PERTINENT PROCEDURAL HISTORY: ? 76 y.o., female, referred by Dr. Weeks for education and evaluation for permanent vascular access for dialysis. 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 ??She initiated hemodialysis on 06/15/21. ??She dialyzes at [facility] on a Sunday, and Sunday schedule. Significant Medical History: ??DM type 2, Chronic right heart failure, HTN, COPD, PAD PACEMAKER: ??N/A DIABETES: ??DM type 2 - No antidiabetic meds per pt ANTICOAGULATION: ??N/A LABORATORY RESULTS: ?Please see EPIC for current Labs. ELECTROCARDIOGRAM: ??No results found. CHEST X-RAY: ??12/05/19 ?? VEIN MAPPING: ??10/17/21 ?? ECHOCARDIOGRAM: ??09/12/21 EF 65 - 70% ?? PHYSICAL EXAMINATION Patient is right handed. ??She has no hand complaints. ??She does not recall ever having a PICC line. She is a diabetic and does not check blood sugars. Past history of vascular accesses: ??None ?I reviewed the following booklets with the patient via phone: Hemodialysis Catheters ([id number]), Hemodialysis Fistula and Graft ([id number]). She received an red Save your Vein bracelet. Per Dr. Weeks's note on 06/07/21 We have discussed home dialysis modalities, she is currently not interested in these. ??She is not a transplant candidate. ??All questions were answered. ? Surgeon: Patient seen by Dr. Vidal Plan: ??Left Brachial Axillary AV Graft Surgery: Is scheduled for 11/04/21. Checklist: The Checklist for Surgical Patients ([id number]) was given to the patient with the following instructions: Report to [facility] admissions at the time told to you when you call in the night before. Report fasting after midnight, no am breakfast, but take your am meds with water. Insulin Directions: ??N/A Anticoagulation medications directions: ??N/A COVID-19 Testing: Ordered for [facility] on 10/31/21 BLACK: ??Dr. Weeks and Cirilo Neri CNP was sent a message to complete a BLACK on the patient prior tosurgery INFORMED CONSENT Patient signed the consent form and it was scanned in to patient's chart ?? documented in this encounter Plan of Treatment Scheduled Procedures Name Priority Associated Diagnoses Date/Time PLACEMENT ARTERIOVENOUS GRAFT UPPER Chronic Kidn ey Disease Stage 5 EXTREMITY Glomerular Filtration Rate Less Than 15 (HCC) documented as of this encounter Visit Diagnoses Not on filedocumented in this encounter
--- OUTSIDE RECORDS SUMMARY | 2021-11-16 12:42 | XMS_ITS | Encounter Summary ---
:1945 Author Organization [facility] Address [address] [place] [address] Care Team Providers Name Role Phone Unavailable Primary Care Provider Unavailable Reason for Referral Outpatient (Routine) - Closed Specialty Diagnoses / Procedures Referred By Contact Refer red To Contact Nephrology and Diagnoses Chronic Failure Renal End Stage Renal Disease Dialysis Dependent (HCC) Randal Weeks [facility] Hypertension Melvin Bolden [address] [place] [address] Referral ID Status Reason Start Date Expiration Date Visits Requ ested Visits Authorized [id number] Closed 09/19/2021 09/19/2022 1 1 Encounter Details Date Type Department Care Team Description 09/19/2021 Orders Only Division of Nephrology Emilia Shelton , Chronic Failure Renal and Hypertension in R.N. End Stage Renal [place], [place] [address] [facility] Disease Dialysis [address] [place], [place] Dependent (HCC) [place] [address] (Primary Dx) [phone] [phone] Social History Tobacco Use Types Packs/Day Years Used Date Smoking Tobacco: Never Assessed Sex Assigned at Date Recorded Not on file documented as of this encounter Plan of Treatment Scheduled Procedures Name Priority Associated Diagnoses Date/Time PLACEMENT ARTERIOVENOUS GRAFT UPPER Chronic Kidn ey Disease Stage 5 EXTREMITY Glomerular Filtration Rate Less Than 15 (HCC) Scheduled Referrals Name Type Priority Associated Order Schedule Diagnoses Nephrology nurse Outpatient Referral Routine Chronic Failure E xpected: visit (clinic) Renal End Stage 09/19/2021 Renal Disease (Approximate), Dialysis Dependent Expires: (HCC) 12/20/2022 documented as of this encounter Visit Diagnoses Diagnosis Chronic Failure Renal End Stage Renal Di sease Dialysis Dependent (HCC) - Primary documented in this encounter
--- OUTSIDE RECORDS SUMMARY | 2021-11-16 12:42 | XMS_ITS | Encounter Summary ---
:1945 Author Organization [facility] Address [address] [place] [address] Care Team Providers Name Role Phone Unavailable Primary Care Provider Unavailable Reason for Visit Outpatient (Routine) - Closed Specialty Diagnoses / Procedures Referred By Contact Refer red To Contact Nephrology and Diagnoses Chronic Kidney Disease Stage 5 Glomerular Filtration Rate Less Than 15 (HCC) Anemia Of Chronic Renal Disease Hyperparathyroidism Renal Secondary (HCC) Apnea Sleep Obstructive Randal Weeks [facility] Hypertension / Dialysis , [place] [address] [place] [address] Referral ID Status Reason Start Date Expiration Date Visits Requ ested Visits Authorized [id number] Closed 09/17/2021 09/17/2022 1 1 Encounter Details Date Type Department Care Team Description 10/17/2021 Comprehensive Visit Division of Brea Weeks Jr., D.O. [address] [place] [address] Chronic Kidney Disease Stage 5 Glomerula r Filtration Rate Less Than 15 (HCC) (Primary Dx); Vascular and Kyler Vidal M.B.B.S. [address] [place] [address] Anemia Of Chronic Renal Disease; Endovascular Hyperparathyroi dism Renal Secondary (HCC); Surgery in Apnea [place] [address] [place] [address] Social History Tobacco Use Types Packs/Day Years Used Date Smoking Tobacco: Never Assessed Sex Assigned at Date Recorded Not on file documented as of this encounter Consult Notes Kyler Vidal M.B.B.S. - 10/17/2021 1:20 PM CDT It was my pleasure to meet with Ms. Berry who was accompanied by her daughter for this visit. She is seeing us for a permanent hemodialysis access option as she is getting dialyzed through a right subclavian catheter which has had intermittent clotting episodes. She went on hemodialysis in June of this year and her leading diagnosis was hypertensive nephropathy. She has a remote history of diastolic heart failure and a previous left hip replacement. She was told at some point that she is prediabetic, however her hemoglobin A1c levels have always been normal.She leads a rather sedentary life and lives with her daughter. She has had no prior cardiovascular procedures. She has 2+ palpable radial pulses bilaterally and nonpalpable ulnar pulses. On review of her vein mapping, the only suitable vein segment is the basilic vein on the right side although it does dive into the brachial vein rather prematurely. It is 2-3 mm in diameter. Owing to the fact that she has an extremely short segment borderline basilic vein that can be used in the right arm, my proposal would be to proceed with the left arm brachial axillary vein graft to give her the best chance of a usable, durable hemodialysis solution. We discussed the conduct of the operation as well as the postoperative recovery. She is willing to proceed with the operation and signed the consent form. Tentatively, we have scheduled her for November 04, 2021 barring any unforeseen circumstances. Depending on the time of the day that we finished the procedure, she may be medically readyfor discharge the same evening or have an overnight admission. documented in this encounter Plan of Treatment Scheduled Procedures Name Priority Associated Diagnoses Date/Time PLACEMENT ARTERIOVENOUS GRAFT UPPER Chronic Kidn ey Disease Stage 5 EXTREMITY Glomerular Filtration Rate Less Than 15 (HCC) documented as of this encounter Visit Diagnoses Diagnosis Chronic Kidney Disease Stage 5 Glomerula r Filtration Rate Less Than 15 (HCC) - Primary Anemia Of Chronic Renal Disease Hyperparathyroidism Renal Secondary (HCC ) Apnea Sleep Obstructive documented in this encounter
--- OUTSIDE RECORDS SUMMARY | 2021-11-16 12:42 | XMS_ITS | Encounter Summary ---
:[address] [facility] Address [address] [place] [address] Care Team Providers Name Role Phone Unavailable Primary Care Provider Unavailable Reason for Referral Medication Prior Authorization - Closed Specialty Diagnoses / Procedures Referred By Contact Refer red To Contact Jenna Neri APRN, C .N.P. [address] [place] [phone] Referral ID Status Reason Start Date Expiration Date Visits Requ ested Visits Authorized [id number] Closed 1 1 Encounter Details Date Type Department Care Team Description 09/02/2021 Orders Only Division of Nephrology and Jenna Neri A PRN, Hypertension, [facility] C.N.P. [place], in [place], [address] [place] [address] [place] [phone] [place] [address] [phone] Social History Tobacco Use Types Packs/Day Years [...]
--- OUTSIDE RECORDS SUMMARY | 2021-11-16 12:42 | XMS_ITS | Encounter Summary ---
:1945 Author Organization [facility] Address [address] [place] [address] Care Team Providers Name Role Phone Unavailable Primary Care Provider Unavailable Reason for Referral Outpatient (Routine) - Closed Specialty Diagnoses / Procedures Referred By Contact Refer red To Contact Radiology Diagnoses Complication Dialysis Catheter Initial Jenna Neri APRN, C.N.P. [facility] Procedures IR Dialysis / High Flow Catheter Exchange [address] [place], [place] [address] Referral ID Status Reason Start Date Expiration Date Visits Requ ested Visits Authorized [id number] Closed 10/19/2021 10/19/2022 1 1 Reason for Visit Outpatient (Routine) - Closed Specialty Diagnoses / Procedures Referred By Contact Refer red To Contact Radiology Diagnoses Complication Dialysis Catheter Initial Jenna Neri APRN, C.N.P. [facility] Procedures IR Dialysis / High Flow Catheter Exchange [address] [place] [address] Referral ID Status Reason Start Date Expiration Date Visits Requ ested Visits Authorized [id number] Closed 10/19/2021 10/19/2022 1 1 Encounter Details Date Type Department Care Team Description 10/21/2021 Hospital Encounter Department of Jenna Neri Complica tion Dialysis Radiology in [place], C.N.P. Catheter Initial [place], [place] [address] [place] [id number] Social History Tobacco Use Types Packs/Day Years Used Date Smoking Tobacco: Never Assessed Sex Assigned at Date Recorded Not on file documented as of this encounter Last Filed Vital Signs Vital Sign Reading Time Taken Comments Blood Pressure 157/77 10/21/2021 1:30 PM CDT Pulse 55 10/21/2021 1:35 PM CDT Temperature 36.8 ??C (98.2 ??F) 10/21/2021 1:30 PM CDT Respiratory Rate 20 10/21/2021 1:05 PM CDT Oxygen Saturation 99% 10/21/2021 1:35 PM CDT Inhaled Oxygen Concentration - - Weight 77.5 kg (170 lb 13.7 oz) 10/21/2021 10:57 AM CDT Height - - Body Mass Index - - documented in this encounter Discharge Instructions Discharge InstructionsAreli Rico R.N. - 10/21/2021 1:03 PM CDT Instructions After Sedation or Anesthesia After you have sedation or anesthesia, it is common to have lapses of memory, slowed reaction time and impaired judgment. Do not drive or operate motorized vehicles or equipment for the rest of the day. This is for your safety and the safety of others. Air travel by yourself on the day of your procedure is not advised. For the rest of the day: Rest. Do not return to work or school. Do not take on responsibility for children or anyone who depends on your care. Do not use exercise equipment or take part in rough play or sports. Do not drink alcoholic beverages. Sedation or anesthesia medication also may increase your risk of falling. Use caution and ask for help when you walk or move around. You may want to have someone help you for the rest of the day. You may resume your usual diet when you feel able to do so, unless you are told otherwise. Contact your health care provider if you have: The following side effects longer than 24 hours: Ongoing dizziness. Persistent nausea or repeated vomiting. Signs of infection, which may include: Temperature of 100.4 degrees Fahrenheit (38 degrees Celsius) or higher. Chills. Increase swelling, tenderness or redness at the IV insertion site. Increased pain or pain not relieved by pain medication. AttachmentsThe following attachments cannot be sent through Care Everywhere.Your High-Flow Central Venous Catheter (Pakistani)documented in this encounter Medications at Time of Discharge Medication Sig Dispensed Refills Start Date End Date carvediloL (COREG) 12.5 Take 37.5 mg by 0 mg tablet mouth 2 (two) times a day with meals. Dialyvite 100-1 mg tablet Take 1 tablet by 0 09/08 mouth daily. furosemide (LASIX) 20 mg Take 20 mg by 0 tablet mouth 2 (two) times a day. gabapentin (NEURONTIN) Take 2 capsules 180 capsule 3 022 08/01/2022 100 mg capsule (200 mg total) by mouth at bedtime. hydrALAZINE (APRESOLINE) Take 75 mg by 0 50 mg tablet mouth every 8 (eight) hours. isosorbide mononitrate Take 2 tablets (60 180 tablet 3 06/1706/17/2022 (IMDUR) 30 mg 24 hr mg total) by mouth tablet every evening. lisinopriL TAKE 2 TABLETS(40 180 tablet 3 08/09/2021 023 (PRINIVIL,ZESTRIL) 20 mg MG) BY MOUTH DAILY tablet omeprazole (PriLOSEC) 20 Take 20 mg by [address] capsule mouth every morning before breakfast. ondansetron ODT Dissolve 1 tablet 20 tablet 0 09/02/2021 (ZOFRAN-ODT) 4 mg (4 mg total) in disintegrating tablet the mouth every 8 (eight) hours as needed for nausea or vomiting. documented as of this encounter Progress Notes Mine Emerson APRN, C.N.P. - 10/21/2021 1:28 PM CDT SUBJECTIVE A patient discharge status post right tunneled dialysis catheter exchange done today in [facility]. Condition at Transfer stable OBJECTIVE VITAL SIGNS Temperature: [37.1 ??C] 37.1 ??C Heart Rate: [56-60] 57 Resp Rate: [9-18] 14 Blood Pressure: (128-172)/(52-74) 151/72 SpO2: [99 %-100 %] 100 % Pulse Rate: [56-60] 57 Physical Exam General: Awake, alert and in no acute distress Chest: Tunneled right internal jugular dialysis catheter in place, dressing saturated with moderate amount of blood. Dressing removed, D -Stat and Quick clot hemostatic agents applied, sterile dressingreapplied, hemostasis obtained. ASSESSMENT / PLAN SUMMARY OF CARE 76-year-old female who underwent tunneled right internal jugular dialysis catheter exchange done today in [facility]. Postprocedure, patient had moderate amount of bleeding to the puncture site, saturating dressing. Dressing removed, hemostatic agents D stat and Quick clot, Hemostasis obtained, to be changed tomorrow at dialysis. Plan: Pt ready for discharge accompanied by her daughter. Follow-up with dialysis as instructed. For any questions or concerns regarding this patient please page Vascular Interventional Radiology INDUSTRIAL RELATIONS DIRECTOR/PA at [phone] Sunday through Sunday 7 a.m. to 5 p.m. or Vascular Interventional Radiology on-callresident at [phone] after 5 p.m. and on weekends. Mine Emerson APRN, C.N.P. documented in this encounter H&P Notes Steffanie Akers Admin Closure - 10/21/2021 2:01 PM CDT Administrative Closure: This record is being filed as incomplete for a missing H&P. Health Information Management Services documented in this encounter Plan of Treatment Scheduled Procedures Name Priority Associated Diagnoses Date/Time PLACEMENT ARTERIOVENOUS GRAFT UPPER Chronic Kidn ey Disease Stage 5 EXTREMITY Glomerular Filtration Rate Less Than 15 (HCC) documented as of this encounter Procedures Procedure Name Priority Date/Time Associated Comments Diagnosis IR DIALYSIS / RAD - Routine 10/21/2021 12:29 Complication Results f or this HIGH FLOW (most inpatients PM CDT Dialysis Catheter proced ure are in CATHETER EXCHANGE and all Initial the result s outpatients) section. documented in this encounter Results IR Dialysis / High Flow Catheter Exchange (10/21/2021 12:29 PM CDT) Anatomical Region Laterality Modality Body, Vascular Interventional RST LOS, Vascular N/A X-Ray Angiography Interventional ARZ LOS, Vascular Interventional FLA LOS Specimen (Source) Anatomical Collection Method Collection Time Re ceived Time Location / / Volume Laterality 10/21/2021 6:49 PM CDT Impressions 10/21/2021 7:07 PM CDT 1. Exchange of the right IJ tunneled dialysis catheter, which is ready for use. 2. 10 mm balloon angioplasty of a fibrin sheath. EP Narrative 10/21/2021 7:07 PM CDT EXAM: IR DIALYSIS / HIGH FLOW CATHETER EXCHANGE CLINICAL HISTORY: 76-year-old female pat ient who presents for malfunctioning tunneled dialysis catheter. TECHNIQUE: The patient was placed supine on the fluoroscopy table. The right neck, chest, and indwelling catheter were prepared and dr aped in sterile fashion. Fluoroscopic automatic lump making machine tender image demonstrates a tunneled dialysis cathete r in place. Using lidocaine 1% for local anesthesia, blunt dissection was performed freeing the cat heter cuff. Catheter was removed in its entirety over two stiff Glidewires. A 9-Burundian Brite Tip s azul placed, and a superior venacavogram performed demonstrating a fibrin sheath. Sheath di sruption performed with balloon angioplasty using a 10 x 40 mm balloon. Over both wires, a new 23 cm Palindrome catheter was advanced into the right atrium. Both lumens flushed and aspirated well, and were filled with 4% citrate solution and capped. Catheter was secured to the skin with a 2-0 Prolene suture tied at the chest entry site and through the catheter wings. Sterile dressings we re applied. The patient tolerated the procedure well. No immediate complication. For placement of this central venous acc ess, we followed a catheter checklist and standardized protocol. The position of the catheter t ip was confirmed under fluoroscopic guidance, and a final image of the catheter position was obtai rafiq. Ready for use. PREPROCEDURE: Patient seen, evaluated, h istory reviewed, and approved for sedation. Airway, heart, and lung exam satisfactory for sedation. Discussed risks, benefits, alternatives for procedure, and/or sedation. The roles and responsib ilities of care team members, residents, and fellows were discussed. Patient understands informati on and questions answered. Informed consent obtained from the patient. Immediately prior to starti ng the procedure, in the presence of the assisting personnel, a procedural pause was conduc duyen to verify correct patient identity and verification of procedure to be performed, and as applic able, correct side and site, correct patient position, availability of implants, special equipm ent, or special requirements, and all image and specimen identification data. INTRAPROCEDURE: Moderate sedation was ad ministered by sedation nurse under my supervision. The patient was continuously monitored with real time oxygen saturation, heart rate, ECG rhythm strip and blood pressure throughout administra tion of the sedation and performance of the procedure. The total intra-procedural sedation time was : 15 minutes. Estimated blood loss: minimal. Procedure Note Sushant Schaefer M.D. - 2021 EXAM: IR DIALYSIS / HIGH FLOW CATHETER E XCHANGE CLINICAL HISTORY: 76-year-old female pat ient who presents for malfunctioning tunneled dialysis catheter. TECHNIQUE: The patient was placed supine on the fluoroscopy table. The right neck, chest, and indwelling catheter were prepared and dr aped in sterile fashion. Fluoroscopic automatic lump making machine tender image demonstrates a tunneled dialysis cathete r in place. Using lidocaine 1% for local anesthesia, blunt dissection was performed freeing the cat heter cuff. Catheter was removed in its entirety over two stiff Glidewires. A 9-Burundian Brite Tip s azul placed, and a superior venacavogram performed demonstrating a fibrin sheath. Sheath di sruption performed with balloon angioplasty using a 10 x 40 mm balloon. Over both wires, a new 23 cm Palindrome catheter was advanced into the right atrium. Both lumens flushed and aspirated well, and were filled with 4% citrate solution and capped. Catheter was secured to the skin with a 2-0 Prolene suture tied at the chest entry site and through the catheter wings. Sterile dressings we re applied. The patient tolerated the procedure well. No immediate complication. For placement of this central venous acc ess, we followed a catheter checklist and standardized protocol. The position of the catheter t ip was confirmed under fluoroscopic guidance, and a final image of the catheter position was obtai rafiq. Ready for use. PREPROCEDURE: Patient seen, evaluated, h istory reviewed, and approved for sedation. Airway, heart, and lung exam satisfactory for sedation. Discussed risks, benefits, alternatives for procedure, and/or sedation. The roles and responsib ilities of care team members, residents, and fellows were discussed. Patient understands informati on and questions answered. Informed consent obtained from the patient. Immediately prior to starti ng the procedure, in the presence of the assisting personnel, a procedural pause was conduc duyen to verify correct patient identity and verification of procedure to be performed, and as applic able, correct side and site, correct patient position, availability of implants, special equipm ent, or special requirements, and all image and specimen identification data. INTRAPROCEDURE: Moderate sedation was ad ministered by sedation nurse under my supervision. The patient was continuously monitored with real time oxygen saturation, heart rate, ECG rhythm strip and blood pressure throughout administra tion of the sedation and performance of the procedure. The total intra-procedural sedation time was : 15 minutes. Estimated blood loss: minimal. IMPRESSION: 1. Exchange of the right IJ tunneled isaura lysis catheter, which is ready for use. 2. 10 mm balloon angioplasty of a fibrin sheath. EP Jenna Neri APRN, C.N.P. IMG IR PROCEDURES documented in this encounter Visit Diagnoses Diagnosis Complication Dialysis Catheter Initial documented in this encounter Administered Medications Inactive Administered Medications - up to 3 most recent administrations Medication Order MAR Action Action Date Dose Rate Site fentaNYL injection 25 mcg Given 10/21/2021 11:53 AM CDT 25 mcg (SUBLIMAZE) 25 mcg, intravenous, Every 2 min PRN, sedation, or pain before and during sedation procedure, Starting on Sun10/21/21 at 1125, Intraprocedure (RAD), Administer over 1 minute immediately prior to the procedure. May repeat every 2 minutes to a maximum of 200 mcg, until pain score of 3 or less from baseline. Do not give if respiratory rate is less than 8 breaths/minute Given 10/21/2021 11:47 AM CDT 25 mcg flumazeniL injection 0.2 mg (ROMAZICON) 0.2 mg, intravenous, Once as needed, rev ersal, Starting on Sun10/21/21 at 1125, For 1 dose, Intraprocedure (RAD), Administer once if patient has a RASS score of -4, -5 and has a respiratory rate less than 8 breaths/minute. iohexoL 300 mg iodine/mL solution (OMNIP AQUE) Given 10/21/2021 12:29 PM CDT 10 mL Code/trauma/sedation medication, Starting on Sun10/21/21 at 1229 lactated ringers 20 mL/hr, intravenous, Once as needed, t o keep vein open, Starting on Sun10/21/21 at 1125, For 1 dose, Intraprocedure (RAD) lidocaine-sodium bicarbonate (buffered) Given 10/21/2021 12:29 P M CDT 4 mL 0.9%-8.4% injection infiltration, Code/trauma/sedation medication, Starting on Sun10/21/21 at 1229 midazolam (PF) injection 0.25 mg (VERSED ) 0.25 mg, intravenous, Every 2 min PRN, s edation, RASS -2, Starting on Sun10/21/21 at 1125, Intraprocedure (RAD), May repea t every 2 minutes to a maximum of 5 mg. Do not give if respiratory rate is less than 8 breaths/mi nute. midazolam (PF) injection 0.5 mg (VERSED) 0.5 mg, intravenous, Once as needed, sed ation, Starting on Sun10/21/21 at 1125, For 1 dose, Intraprocedure (RAD) midazolam (PF) injection 0.5 mg (VERSED) Given 10/21/2021 12:16 PM CDT 0.5 mg 0.5 mg, intravenous, Every 2 min PRN, sedation, RASS -1, Starting on Sun10/21/21 at 1125, Intraprocedure (RAD), May repeat every 2 minutes for a maximum of 5 mg. Do not give if respiratory rate is less than 8 breaths/minute. Given 10/21/2021 11:53 AM CDT 0.5 mg Given 10/21/2021 11:48 AM CDT 0.5 mg midazolam (PF) injection 1 mg (VERSED) 1 mg, intravenous, Every 2 min PRN, mabel tion, RASS 0, Starting on Sun10/21/21 at 1125, Intraprocedure (RAD), May repeat e very 2 minutes for a maximum of 5 mg. Do not give if respiratory rate is less than 8 breaths/mi nute. naloxone injection 0.2 mg (NARCAN) 0.2 mg, intravenous, Once as needed, respiratory depre ssion, Starting on Sun10/21/21 at 1125, For 1 dose, Intraproced ure (RAD), Administer once if patient has a RASS score of -4, -5 and has a respiratory rate less t dominguez 8 breaths/minute. documented in this encounter Active and Recently Administered Medications Times are shown in CDT. PRN Medication Order 10/19/2021 10/20/2021 10/21/2021 fentaNYL injection 25 mcg (SUBLIMAZE) 1147 (Given - Provider: Jeannette Simeon R.N.)1153 (Given - Provider: Jeannette Simeon R.N.) 25 mcg, intravenous, Every 2 min PRN, se dation, or pain before and during sedation procedure, Starting on Sun10/21/21 at 1125, Intraprocedure (RAD), Administer over 1 minute immediately prior to the pro cedure. May repeat every 2 minutes to a maximum of 200 mcg, until pain score of 3 or less from baseline. Do not give if respiratory rate is less than 8 breaths/minute flumazeniL injection 0.2 mg (ROMAZICON) 0.2 mg, intravenous, Once as needed, rev ersal, Starting on Sun10/21/21 at 1125, For 1 dose, Intraprocedure (RAD), Administer once if patient has a RASS score of -4, -5 and has a respiratory rate less than 8 breaths/minute. iohexoL 300 mg iodine/mL solution (OMNIPAQUE) (COMPLETED) 1229 (Given - Provider: Sushant Schaefer M.D.) Code/trauma/sedation medication, Starting on Sun10/21/21 at 1229 lactated ringers 20 mL/hr, intravenous, Once as needed, t o keep vein open, Starting on Sun10/21/21 at 1125, For 1 dose, Intraprocedure (RAD) lidocaine-sodium bicarbonate (buffered) 0.9%-8.4% injection (COM PLETED) 1229 (Given - Provider: Sushant Schaefer M.D.) infiltration, Code/trauma/sedation medication, Starting on 10/21/21 at 1229 midazolam (PF) injection 0.25 mg (VERSED) 0.25 mg, intravenous, Every 2 min PRN, s edation, RASS -2, Starting on Sun10/21/21 at 1125, Intraprocedure (RAD), May repeat every 2 minutes to a maximum of 5 mg. Do not give if respiratory rate is less than 8 breaths/minute. midazolam (PF) injection 0.5 mg (VERSED) 0.5 mg, intravenous, Once as needed, sed ation, Starting on Sun10/21/21 at 1125, For 1 dose, Intraprocedure (RAD) midazolam (PF) injection 0.5 mg (VERSED) 1148 (Given - Provider: Jeannette Simeon R.N.)1153 (Given - Provider: Jenanette Simeon R.N.)1216 (Given - Provider: Jeannette Simeon R.N.) 0.5 mg, intravenous, Every 2 min PRN, se dation, RASS -1, Starting on Sun10/21/21 at 1125, Intraprocedure (RAD), May repeat every 2 minutes for a maximum of 5 mg. Do not give if respiratory rate is less than 8 breaths/minute. midazolam (PF) injection 1 mg (VERSED) 1 mg, intravenous, Every 2 min PRN, mabel tion, RASS 0, Starting on Sun10/21/21 at 1125, Intraprocedure (RAD), May repeat every 2 minutes for a maximum of 5 mg. Do not give if respiratory rate is less than 8 breaths/minute. naloxone injection 0.2 mg (NARCAN) 0.2 mg, intravenous, Once as needed, res piratory depression, Starting on Sun10/21/21 at 1125, For 1 dose, Intraprocedure (RAD), Administer once if patient has a RASS score of -4, -5 and has a respiratory rate less than 8 breaths/minute. documented in this encounter
--- OUTSIDE RECORDS SUMMARY | 2021-11-16 12:42 | XMS_ITS | Encounter Summary ---
:1945 Author Organization [facility] Address [address] [place] [address] Care Team Providers Name Role Phone Unavailable Primary Care Provider Unavailable Encounter Details Date Type Department Care Team Description 10/19/2021 Documentation Division of Nephrology and Jenna Neri APRN, Hypertension, Nondenominational C.N.P. [place], in [place], [facility] [address] [place], [place] [address] [place] [id number] [place] [address] [phone] Social History Tobacco Use Types Packs/Day Years Used Date Smoking Tobacco: Never Assessed Sex Assigned at Date Recorded Not on file documented as of this encounter Progress Notes Jenna Neri APRN, C.N.P. - 10/19/2021 12:58 PM CDT Ms. 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 She has required initiation of hemodialysis since June 15, 2021. She is currently being maintained in in-center hemodialysis at [facility] at [place], [place] on a Sunday, and Saturdayschedule. She has medical history includes hypertension, COPD, peripheral arterial disease, chronic right heart failure and diabetes mellitus type 2 (diet control). She is dialyzing through her right IJ tunnel. She is scheduled for AV graft of left brachial artery to axillary vein graft placement by Dr. Vidal at [facility] in [facility] on November 04 2021. She feels well. She has been able to tolerate her dialysis well. She denies chest or dyspnea at restor with exertion. She is without respiratory distress at room air. She does not require any oxygen supplement at home. Her home systolic blood pressure has been in the range of 140's to 150's. She is still making urine.Her oral furosemide 20 mg twice a day has been switched to oral torsemide 60 mg daily recently. Her other current antihypertensive regimen includes oral carvedilol 37.5 mg twice a day, hydralazine 75 mg 3 times per day, lisinopril 20 mg daily and Imdur 30 mg daily. Her hemoglobin was 11.9 g/dL and potassium was 5.9 mmol/L on October 08, 2021. She attributed her hyperkalemia to her oral intake of potatoes, tomatoes and peanut butter. She has agreed to adhere to her potassium restriction diet. We will re check her potassium level on November 01, 2021. Her hemoglobin A1c was 5.1 % on October 04, 2021. She has no new allergy. She has no history anesthesia complication. Her more recent ECG was sinus with inferior Q-waves. Nevertheless, her echocardiogram is reassuring. Her echocardiographic evaluation on September 12, 2021 demonstrated normal left ventricular size, moderateincreased wall thickness and normal systolic function with an EF of 65 to 70%, no regional wall motion abnormalities and normal cardiac valves. I do not see any contra-indication for her to proceed to her dialysis AV graft placement. She is clear medically for the procedure AV graft placement. documented in this encounter Plan of Treatment Scheduled Procedures Name Priority Associated Diagnoses Date/Time PLACEMENT ARTERIOVENOUS GRAFT UPPER Chronic Kidn ey Disease Stage 5 EXTREMITY Glomerular Filtration Rate Less Than 15 (HCC) documented as of this encounter Visit Diagnoses Not on filedocumented in this encounter
--- OUTSIDE RECORDS SUMMARY | 2021-11-16 12:42 | XMS_ITS | Encounter Summary ---
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 Procedures US Upper Extremity Right Dialysis Mapping D.O. 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 [address] [place] [address] Referral ID Status Reason Start Date Expiration Date Visits Requ ested Visits Authorized [id number] Closed 10/17/2021 10/17/2022 1 1 Encounter Details Date Type Department Care Team Description 10/17/2021 Hospital Encounter Department of Micky, Chronic Failure Radiology, Marixa Whitehead Jr., Renal End Stage Building, in D.O. Renal Disease [place], [place] [address] [facility] Dialysis Dependent [address] [place], [place] (HCC) [place] [phone] Social History Tobacco Use Types Packs/Day Years Used Date Smoking Tobacco: Never Assessed Sex Assigned at Date Recorded Not on file documented as of this encounter Medications at Time of Discharge Medication Sig Dispensed Refills Start Date End Date carvediloL (COREG) 12.5 Take 37.5 mg by 0 mg tablet mouth 2 (two) times a day with meals. Dialyvite 100-1 mg tablet Take 1 tablet by 0 /06/2021 mouth daily. furosemide (LASIX) 20 mg Take [...] or vomiting. documented as of this encounter Plan of Treatment Scheduled Procedures Name Priority Associated Diagnoses Date/Time PLACEMENT ARTERIOVENOUS GRAFT UPPER Chronic Kidn ey Disease Stage 5 EXTREMITY Glomerular Filtration Rate Less Than 15 (HCC) documented as of this encounter Procedures Procedure Name Priority Date/Time Associated Comments Diagnosis US UPPER RAD - Routine 10/17/2021 12:37 Chronic Failure Results for this EXTREMITY RIGHT (most inpatients PM CDT Renal End Stage proce dure are in DIALYSIS MAPPING and all Renal Disease the result s outpatients) Dialysis section. Dependent (HCC) documented in this encounter Results US Upper Extremity Right Dialysis Mapping (10/17/2021 12:37 PM CDT) Anatomical Region Laterality Modality Upper Extremity, Ultrasound RST LOS, Ultrasound ARZ LOS, Rig ht Ultrasound Ultrasound FLA LOS Specimen (Source) Anatomical Collection Method Collection Time Re ceived Time Location / / Volume Laterality 10/17/2021 12:41 PM CDT Impressions 10/17/2021 12:44 PM CDT Upper extremity arteries and veins asses sed for predialysis purposes Narrative 10/17/2021 12:44 PM CDT EXAM: US UPPER EXTREMITY RIGHT DIALYSIS MAPPING Exam performed with color and spectral D oppler analysis. COMPARISON: None FINDINGS: RIGHT Deep Vein Assessment: Normal. Central Arterial Assessment: Normal. ARTERIAL DIAMETERS Brachial artery: 4.8 mm Radial artery: 1.9 mm Ulnar artery: 0.8 mm Distance from right elbow crease to brac hial artery bifurcation: 2.7cm below. CEPHALIC VEIN: Not seen/absent BASILIC VEIN Upper humerus: Early drainage into brach ial veins Mid humerus: 3.5 mm Lower humerus: 2.0 mm Antecubital fossa: 1.1 mm Upper forearm: Mid forearm: Wrist: Street: ( * ) = too small (<2mm) or not visualiz ed ( X ) = not examined Procedure Note Randal Knight M.D. - 10/17/2021Formatti ng of this note might be different from the original. EXAM: US UPPER EXTREMITY RIGHT DIALYSIS MAPPING Exam performed with color and spectral D oppler analysis. COMPARISON: None FINDINGS: RIGHT Deep Vein Assessment: Normal. Central Arterial Assessment: Normal. ARTERIAL DIAMETERS Brachial artery: 4.8 mm Radial artery: 1.9 mm Ulnar artery: 0.8 mm Distance from right elbow crease to brac hial artery bifurcation: 2.7cm below. CEPHALIC VEIN: Not seen/absent BASILIC VEIN Upper humerus: Early drainage into brach ial veins Mid humerus: 3.5 mm Lower humerus: 2.0 mm Antecubital fossa: 1.1 mm Upper forearm: Mid forearm: Wrist: Street: ( * ) = too small (<2mm) or not visualiz ed ( X ) = not examined IMPRESSION: Upper extremity arteries and veins asses sed for predialysis purposes Randal Weeks Jr., D.O. IMG US PROCEDURES documented in this encounter Visit Diagnoses Diagnosis Chronic Failure Renal End Stage Renal Di sease Dialysis Dependent (HCC) documented in this encounter
--- OUTSIDE RECORDS SUMMARY | 2021-11-16 12:42 | XMS_ITS | Encounter Summary ---
:1945 Author Organization [facility] Address [address] [place] [address] Care Team Providers Name Role Phone Unavailable Primary Care Provider Unavailable Encounter Details Date Type Department Care Team Description 10/17/2021 Orders Only Division of Nephrology Justo Sauer Chro myrna Failure Renal and Hypertension in R.N. End Stage Renal [place], [place] [phone] Disease Dialysis [address] (Work) Dependent (HCC) [place] [address] (Primary Dx) [phone] Social History Tobacco Use Types Packs/Day Years [...]
--- OUTSIDE RECORDS SUMMARY | 2021-11-16 12:42 | XMS_ITS | Encounter Summary ---
:1945 Author Organization [facility] Address [address] [place] [address] Care Team Providers Name Role Phone Unavailable Primary Care Provider Unavailable Reason for Referral Outpatient (Routine) - Closed Specialty Diagnoses / Procedures Referred By Contact Refer red To Contact Diagnoses Chronic Kidney Disease Stage 5 Glomerular Filtration Rate Less Than 15 (HCC) Anemia Of Chronic Renal Disease Hyperparathyroidism Renal Secondary (HCC) Apnea Sleep Obstructive Randal Weeks Jr., [facility] Procedures US Upper Extremity Left Dialysis Mapping D.O. [address] [place], [place] [address] Referral ID Status Reason Start Date Expiration Date Visits Requ ested Visits Authorized [id number] Closed 09/17/2021 09/17/2022 1 1 Reason for Visit Outpatient (Routine) - Closed Specialty Diagnoses / Procedures Referred By Contact Refer red To Contact Diagnoses Chronic Kidney Disease Stage 5 Glomerular Filtration Rate Less Than 15 (HCC) Anemia Of Chronic Renal Disease Hyperparathyroidism Renal Secondary (HCC) Apnea Sleep Obstructive Randal Weeks Jr., [facility] Procedures US Upper Extremity Left Dialysis Mapping D.O. [address] [place], [place] [address] Referral ID Status Reason Start Date Expiration Date Visits Requ ested Visits Authorized [id number] Closed 09/17/2021 09/17/2022 1 1 Encounter Details Date Type Department Care Team Description 10/17/2021 Hospital Department of Micky, Chronic Kidney Disease Stage 5 Glomerular Filtration Rate Less Than 15 (HCC); Encounter Radiology, Marixa Whitehead Jr., Anemia Of Chronic Renal Disease; Building, in D.O. Hyperparathyroidism Renal Secondary (HCC ); [place], [address] [facility] [place] Apnea Sleep Obstructive [place], [place] [address] [facility] [address] [place], [place] [phone] (Work) [phone] Social History Tobacco Use Types Packs/Day Years [...] Diagnosis US UPPER RAD - Routine 10/17/2021 9:12 Chronic Kidney Results f or this EXTREMITY LEFT (most inpatients AM CDT Disease Stage 5 proced ure are in DIALYSIS MAPPING and all Glomerular the results outpatients) Filtration Rate section. Less Than 15 (HC C) Anemia Of Chronic Renal Disease Hyperparathyroidis m Renal Secondary (HCC) Apnea Sleep Obstructive documented in this encounter Results US Upper Extremity Left Dialysis Mapping (10/17/2021 9:12 AM CDT) Anatomical Region Laterality Modality Upper Extremity, Ultrasound RST LOS, Ultrasound ARZ LOS, Lef t Ultrasound Ultrasound FLA LOS Specimen (Source) Anatomical Collection Method Collection Time Re ceived Time Location / / Volume Laterality 10/17/2021 9:13 AM CDT Impressions 10/17/2021 9:26 AM CDT Patent vessels of the left upper extremi ty with sizes as described in the body of the report. Narrative 10/17/2021 9:26 AM CDT EXAM: US UPPER EXTREMITY LEFT DIALYSIS MAPPING Exam performed with color and spectral D oppler analysis. COMPARISON: None available. FINDINGS: LEFT Deep Vein Assessment: Normal. Central Arterial Assessment: Normal. ARTERIAL DIAMETERS Brachial artery: 4.3 mm Radial artery: 2.1 mm atheromatous plaqu e Ulnar artery: 1.4 mm atheromatous plaque Distance from left elbow crease to brach ial artery bifurcation: 2.4 cm below the antecubital fossa. CEPHALIC VEIN Upper humerus: 1.0 mm Mid humerus: 0.9 mm BASILIC VEIN Upper humerus: 2.5 mm Mid humerus: 1.3 mm Procedure Note Jenny Mccall M.D. - 10/17/2021Formatt ing of this note might be different from the original. EXAM: US UPPER EXTREMITY LEFT DIALYSIS M APPING Exam performed with color and spectral D oppler analysis. COMPARISON: None available. FINDINGS: LEFT Deep Vein Assessment: Normal. Central Arterial Assessment: Normal. ARTERIAL DIAMETERS Brachial artery: 4.3 mm Radial artery: 2.1 mm atheromatous plaqu e Ulnar artery: 1.4 mm atheromatous plaque Distance from left elbow crease to brach ial artery bifurcation: 2.4 cm below the antecubital fossa. CEPHALIC VEIN Upper humerus: 1.0 mm Mid humerus: 0.9 mm BASILIC VEIN Upper humerus: 2.5 mm Mid humerus: 1.3 mm IMPRESSION: Patent vessels of the left upper extremi ty with sizes as described in the body of the report. Melvin Neely Jr. US PROCEDURES documented in this encounter Visit Diagnoses Diagnosis Chronic Kidney Disease Stage 5 Glomerula r Filtration Rate Less Than 15 (HCC) Anemia Of Chronic Renal Disease Hyperparathyroidism Renal Secondary (HCC ) Apnea Sleep Obstructive documented in this encounter
--- OUTSIDE RECORDS SUMMARY | 2021-11-16 12:42 | XMS_ITS | Encounter Summary ---
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 Stage Renal Disease [place] [address] [facility] Dialysis Dependent (HCC) [address] [place] [address] [phone] (Wo rk) Social History Tobacco Use Types [...] Procedure Name Priority Date/Time Associated Comments Diagnosis SARS CORONAVIRUS 2, Routine 11/02/2021 11:08 Resu lts for this PCR, V AM CDT procedure are i n the results section. documented in this encounter Results SARS Coronavirus 2, PCR, V (11/02/2021 11:08 AM CDT) [facility] Method Time Signature SARS-Coronavi Undetected Undetected 11/02/2021 OWAT vanessa-2, PCR 2:48 PM CDT Comment: SARS-CoV-2 RNA absent. ?? ----ADDITIONAL INFORMATION---- This RT-PCR test using the Xpert Xpress SARS-CoV-2/Flu/RSV assay ([employer] performed on the [employer] rt DX systems has received Emergency Use Authorization (EU A) by the U.S. Food and Drug Administration. Performanc e characteristics were verified by [facility] inic in a manner consistent with CLIA requirements . Fact sheets for this Emergency Use Autho rization (EUA) assay can be found at the following link s: For Healthcare Providers: https://www.fda.gov/media/708514/downloa d For Patients: https://www.fda.gov/media/099959/downloa d Specimen Source Nasopharyngeal Swab 11/02/2021 1:3 0 PM CDT OWAT Specimen Anatomical Collection Method Collection Time Receive d Time (Source) Location / / Volume Laterality Varies 11/02/2021 11:08 11/02/2021 1:30 AM CDT PM CDT Kyler Ibarra LAB MICROBIOLOGY - GENERAL O RDERABLES Performing Organization Address City/State/ZIP Code Phon e Number [facility] [address] [place] [address] [facility] [place] [address] System in [place] [address] documented in this encounter Visit Diagnoses Diagnosis Chronic Failure Renal End Stage Renal Di sease Dialysis Dependent (HCC) documented in this encounter Additional Health Concerns Infection Onset Date Last Indicated Resolved Time COVID19 Pending 11/01/2021 11/02/2021 11/02/2021 1:30 PM CDT documented as of this encounter
--- OUTSIDE RECORDS SUMMARY | 2021-11-16 12:42 | XMS_ITS | Encounter Summary ---
:1945 Author Organization [facility] Address [address] [place] [address] Care Team Providers Name Role Phone Unavailable Primary Care Provider Unavailable Reason for Referral Outpatient (Routine) - Authorized Specialty Diagnoses / Procedures Referred By Contact Refer red To Contact Diagnoses Chronic Kidney Disease Stage 5 Glomerular Filtration Rate Less Than 15 (HCC) Anemia Of Chronic Renal Disease Hyperparathyroidism Renal Secondary (HCC) Apnea Sleep Obstructive Randal Weeks Jr., [facility] Procedures DX Chest AP or PA and Lateral 2 Views [address].O. [address] [place] [address] Referral ID Status Reason Start Date Expiration Date Visits V isits Requested Authorized [id number] Authorized 09/17/2021 09/17/2022 1 1 Outpatient (Routine) - Authorized Specialty Diagnoses / Procedures Referred By Contact Refer red To Contact Diagnoses Chronic Kidney Disease Stage 5 Glomerular Filtration Rate Less Than 15 (HCC) Anemia Of Chronic Renal Disease Hyperparathyroidism Renal Secondary (HCC) Apnea Sleep Obstructive Randal Weeks Jr. [facility] Procedures ECG 12 Lead D.O. [address] [place] [address] Referral ID Status Reason Start Date Expiration Date Visits V isits Requested Authorized [id number] Authorized 09/17/2021 09/17/2022 1 1 Outpatient (Routine) - Closed Specialty Diagnoses / Procedures Referred By Contact Refer red To Contact Diagnoses Chronic Kidney Disease Stage 5 Glomerular Filtration Rate Less Than 15 (HCC) Anemia Of Chronic Renal Disease Hyperparathyroidism Renal Secondary (HCC) Apnea Sleep Obstructive Randal Weeks Jr., [place] Procedures US Upper Extremity Left Dialysis Mapping D.O. [address] [place], [place] [address] Referral ID Status Reason Start Date Expiration Date Visits Requ ested Visits Authorized [id number] Closed 09/17/2021 09/17/2022 1 1 Outpatient (Routine) - Closed Specialty Diagnoses / Procedures Referred By Contact Refer red To Contact Nephrology and Diagnoses Chronic Kidney Disease Stage 5 Glomerular Filtration Rate Less Than 15 (HCC) Anemia Of Chronic Renal Disease Hyperparathyroidism Renal Secondary (HCC) Apnea Sleep Obstructive Randal Weeks [facility] Hypertension / Dialysis JrGatito, D.O. [address] [place] [address] Referral ID Status Reason Start Date Expiration Date Visits Requ ested Visits Authorized [id number] Closed 09/17/2021 09/17/2022 1 1 Scheduling Instructions TTS [place] patient so [place] good for a ppts Encounter Details Date Type Department Care Team Description 09/17/2021 Orders Only Division of [place], Chronic Kidney Disease Stage 5 Glomerular Filtration Rate Less Than 15 (HCC) (Primary Dx); Nephrology and Randal Whitehead Jr., Anemia Of Ch ronic Renal Disease; Hypertension in D.O. Hyperparathyroidism Renal Secondary (HCC ); [place], [place] [address] [facility] Apnea Sleep Obstructive [address] [place] [address] [phone] Social History Tobacco Use Types Packs/Day Years Used Date Smoking Tobacco: Never Assessed Sex Assigned at Date Recorded Not on file documented as of this encounter Plan of Treatment Scheduled Orders Name Type Priority Associated Diagnoses Order S chedule ECG 12 Lead ECG Routine Chronic Kidney Expected: Disease Stage 5 09/17/2021 Glomerular Filtration (Appro ximate), Rate Less Than 15 Expires: (HCC) 12/18/2022 Anemia Of Chronic Renal Disease Hyperparathyroidism Renal Secondary (HCC) Apnea Sleep Obstructive DX Chest AP or PA Imaging RAD - Routine (most Chronic Kidney E xpected: and Lateral 2 inpatients and all Disease Stage 5 09/17 Views outpatients) Glomerular Filtration (Appro ximate), Rate Less Than 15 Expires: (HCC) 09/17/2022 Anemia Of Chronic Renal Disease Hyperparathyroidism Renal Secondary (HCC) Apnea Sleep Obstructive Scheduled Procedures Name Priority Associated Diagnoses Date/Time PLACEMENT ARTERIOVENOUS GRAFT UPPER Chronic Kidn ey Disease Stage 5 EXTREMITY Glomerular Filtration Rate Less Than 15 (HCC) Scheduled Referrals Name Type Priority Associated Diagnoses Order S chedule Dialysis - Outpatient Referral Routine Chronic Kidney Expect ed: Hemodialysis access Disease Stage 5 09/17 consult (clinic) Glomerular (Approximat e), Filtration Rate Less Expires : Than 15 (HCC) 12/18/2022 Anemia Of Chronic Renal Disease Hyperparathyroidism Renal Secondary (HCC) Apnea Sleep Obstructive documented as of this encounter Results US Upper Extremity Left [...] described in the body of the report. Randal Weeks Jr., D.O. IMG US PROCEDURES documented in this encounter Visit Diagnoses Diagnosis Chronic Kidney Disease Stage 5 Glomerula r Filtration Rate Less Than 15 (HCC) - Primary Anemia Of Chronic Renal Disease Hyperparathyroidism Renal Secondary (HCC ) Apnea Sleep Obstructive Chronic Kidney Disease Stage 5 Glomerula r Filtration Rate Less Than 15 (HCC) Anemia Of Chronic Renal Disease Hyperparathyroidism Renal Secondary (HCC ) Apnea Sleep Obstructive documented in this encounter
--- OUTSIDE RECORDS SUMMARY | 2021-11-16 12:42 | XMS_ITS | Encounter Summary ---
:1945 Author Organization [facility] Address [address] [place] [address] Care Team Providers Name Role Phone Unavailable Primary Care Provider Unavailable Reason for Visit Outpatient (Routine) - Closed Specialty Diagnoses / Procedures Referred By Contact Refer red To Contact Nephrology and Diagnoses Chronic Failure Renal End Stage Renal Disease Dialysis Dependent (HCC) Randal Weeks [facility] Hypertension , D.O. [address] [place] [address] Referral ID Status Reason Start Date Expiration Date Visits Requ ested Visits Authorized [id number] Closed 09/19/2021 09/19/2022 1 1 Encounter Details Date Type Department Care Team Description 10/17/2021 Nurse Only Division of Nephrology and Randal Painter Jr., D.O. [address] [place] [phone] Hypertension in [facility] Justo Velasquez, [place] [address] [place], [place] [address] Social History Tobacco Use Types Packs/Day [...]
--- OUTSIDE RECORDS SUMMARY | 2021-11-16 12:42 | XMS_ITS | Encounter Summary ---
:1945 Author Organization [facility] Address [address] [place] [address] Care Team Providers Name Role Phone Unavailable Primary Care Provider Unavailable Encounter Details Date Type Department Care Team Description 09/06/2021 Orders Only Division of Nephrology and Shlomo Weeks Hypertension in [place], ., D.O. [place] [address] [facility] [address] [place] [phone] (Wo rk) Social History Tobacco Use Types [...]
--- OUTSIDE RECORDS SUMMARY | 2021-11-16 12:42 | XMS_ITS | Encounter Summary ---
:1945 Author Organization [facility] Address [address] [place] [address] Care Team Providers Name Role Phone Unavailable Primary Care Provider Unavailable Reason for Referral Outpatient (Routine) - Closed Specialty Diagnoses / Procedures Referred By Contact Refer red To Contact Radiology Diagnoses Complication Dialysis Catheter Initial Jenna Neri APRN, C.N.P. [facility] Procedures IR Dialysis / High Flow Catheter Exchange [address] [place] [address] Referral ID Status Reason Start Date Expiration Date Visits Requ ested Visits Authorized [id number] Closed 10/19/2021 10/19/2022 1 1 Encounter Details Date Type Department Care Team Description 10/19/2021 Orders Only Division of Nephrology Jenna Neri, Compl ication Dialysis and Hypertension, GLADYS, C.N.P. Catheter Initial Christianity [place], in 200 [facility] (Primary Dx) [place], [place] [address] [place] [address] [place], [place] [phone] (Work) [phone] Social History Tobacco Use Types Packs/Day Years Used Date Smoking Tobacco: Never Assessed Sex Assigned at Date Recorded Not on file documented as of this encounter Plan of Treatment Scheduled Procedures Name Priority Associated Diagnoses Date/Time PLACEMENT ARTERIOVENOUS GRAFT UPPER Chronic Kidn ey Disease Stage 5 EXTREMITY Glomerular Filtration Rate Less Than 15 (HCC) documented as of this encounter Results IR Dialysis / High [...] and dr aped in sterile fashion. Fluoroscopic manager call center image demonstrates a tunneled dialysis cathete r in place. Using lidocaine 1% for local anesthesia, blunt dissection was performed freeing the cat heter cuff. Catheter was removed in its entirety over two stiff Glidewires. A 9-Italian Brite Tip s azul placed, and a [...] and dr aped in sterile fashion. Fluoroscopic manager call center image demonstrates a tunneled dialysis cathete r in place. Using lidocaine 1% for local anesthesia, blunt dissection was performed freeing the cat heter cuff. Catheter was removed in its entirety over two stiff Glidewires. A 9-Italian Brite Tip s azul placed, and a [...] of a fibrin sheath. EP Jenna Neri APRN C.N.P. IMG IR PROCEDURES documented in this encounter Visit Diagnoses Diagnosis Complication Dialysis Catheter Initial - Primary Complication Dialysis Catheter Initial documented in this encounter Additional Health Concerns Infection Onset Date Last Indicated Resolved Time COVID19 Pending 11/01/2021 11/02/2021 11/02/2021 1:30 PM CDT COVID19 Pending 11/02/2021 11/02/2021 11/02/2021 2:48 PM CDT documented as of this encounter
--- OUTSIDE RECORDS SUMMARY | 2021-11-16 12:42 | XMS_ITS | Clinical Summary ---
:1945 Author Organization [facility] Address [address] [place] [address] Care Team Providers Name Role Phone Unavailable Primary Care Provider Unavailable Source Comments Patient records contain information from all sites at [facility]. For routine questions regarding patient records, call [phone] during business hours, M-F 8:00 AM - 5:00 PM Central Time. Record requests for emergency care only can be directed to [phone] at any time.[facility] Allergies No known active allergies Medications Medication Sig Dispensed Refills Start Date End Date Status furosemide (LASIX) 20 Take 20 mg by 0 Active mg tablet mouth 2 (two) times a day. hydrALAZINE Take 75 mg by 0 Acti ve (APRESOLINE) 50 mg mouth every 8 tablet (eight) hours. carvediloL (COREG) Take 37.5 mg by 0 Active 12.5 mg tablet mouth 2 (two) times a day with meals. omeprazole (PriLOSEC) Take 20 mg by [address] capsule mouth every morning before breakfast. isosorbide Take 2 tablets 180 tablet 3 06/17/2021 06/17/2022 A ctive mononitrate (IMDUR) (60 mg total) 30 mg 24 hr tablet by mouth every evening. gabapentin Take 2 capsules 180 capsule 3 08/01/2021 08/01/2022 Active (NEURONTIN) 100 mg (200 mg total) capsule by mouth at bedtime. lisinopriL TAKE 2 180 tablet 3 08/09/2021 08/09/2022 Active (PRINIVIL,ZESTRIL) 20 TABLETS(40 MG) mg tablet BY MOUTH DAILY ondansetron ODT Dissolve 1 20 tablet 0 09/02/2021 Ac tive (ZOFRAN-ODT) 4 mg tablet (4 mg disintegrating tablet total) in the mouth every 8 (eight) hours as needed for nausea or vomiting. Dialyvite 100-1 mg Take 1 tablet 0 09/29/2021 Active tablet by mouth daily. 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 End Stage Renal Disease Dialysis Depend ent ([facility]) 10/21/2021 Hospital Encounter Radiology Jenna Neri, Complicat ion Dialysis BUSINESS ASST, C.N.P. Catheter Initia l 10/19/2021 Documentation Dialysis Jenna Neri P, BUSINESS ASST, C.N.P. 10/19/2021 Documentation Nephrology and [place], Hypertension Emilia Nguyen, R.NGatito 10/19/2021 Orders Only Dialysis Jenna Neri P, Complication Di alysis BUSINESS ASST, C.N.P. Catheter Initia l (Primary Dx) 10/17/2021 Comprehensive Visit Vascular Surgery Gaby Weeks myrna Kidney Disease Stage 5 Glomerular Filtration Rate Less Than 15 ([facility]) (Primary Dx); Randal Whitehead Jr., Anemia Of Electorate Officer myrna Renal Disease; D.O. Hyperparathyroidism Renal Secondary ([facility] ); Kyler Vidal, Apnea Sleep Ob structive M.B.B.S. 10/17/2021 Hospital Encounter Radiology Wanda Weeks F ailure Renal Randal Whitehead Jr., End Stage Holley l Disease D.O. Dialysis Depend ent ([facility]) 10/17/2021 Nurse Only Nephrology and Micky, Hypertension Randal Whitehead Jr., D.O. Justo Sauer RShaggy 10/17/2021 Hospital Encounter Radiology Micky, Chronic K idney Disease Stage 5 Glomerular Filtration Rate Less Than 15 (HCC); Randal Whitehead Jr., Anemia Of Electorate Officer myrna Renal Disease; D.O. Hyperparathyroi dism Renal Secondary (HCC); Apnea Sleep Obs tructive 10/17/2021 Documentation Nephrology and Sauer, Justo A, Hypertension R.N. 10/17/2021 Orders Only Nephrology and Sauer, Justo A, Chronic Fail ure Renal Hypertension R.N. End Stage Renal Disease Dialysis Depend ent ([facility]) (Primary Dx) 10/17/2021 Orders Only Radiology Tiffanie Reynoso, BUSINESS ASST, C.N.P. 10/17/2021 Orders Only Dialysis Sauer, Justo A, Chronic Failur e Renal R.N. End Stage Renal Disease Dialysis Depend ent ([facility]) (Primary Dx) 09/19/2021 Orders Only Nephrology and Stuve, Chronic Failu re Renal Hypertension Emilia M, End Stage Renal Disease R.N. Dialysis Depend ent ([facility]) (Primary Dx) 09/17/2021 Orders Only Nephrology and [place], Chronic Kidne y Disease Stage 5 Glomerular Filtration Rate Less Than 15 ([facility]) (Primary Dx); Hypertension Randal Whitehead Jr., Anemia Of Electorate Officer myrna Renal Disease; D.O. Hyperparathyroi dism Renal Secondary (HCC); Apnea Sleep Obs tructive 09/06/2021 Orders Only Nephrology and [place], Hypertension Randal Whitehead Jr., D.O. 09/02/2021 Orders Only Dialysis Jenna Neri P, BUSINESS ASST, C.N.P. 09/02/2021 Clinical Nephrology and [place], Communication Hypertension Randal Whitehead Jr., D.O. 08/17/2021 Orders Only Dialysis Neri, Jenna P, BUSINESS ASST, C.N.P. from Last 3 Months Social History Tobacco Use Types Packs/Day Years [...] - - Body Mass Index - - Plan of Treatment Scheduled Procedures Name Priority Associated Diagnoses Date/Time PLACEMENT ARTERIOVENOUS GRAFT UPPER Chronic Kidn ey Disease Stage 5 EXTREMITY Glomerular Filtration Rate Less Than 15 (HCC) Health Maintenance Due Date Last Done Comments Diabetic Office Visit with Foot 1945 Exam Dilated Eye Exam 1945 Hemoglobin A1C 1945 Hepatitis C Screening 1945 Office Visit for Blood Pressure 1945 Check / Re-check Urine Microalbumin 1945 Hepatitis B Vaccines (1 of 3 - 2003 Risk 3-dose series) Zoster Vaccines (1 of 2) 11/17/2015 09/22/2015 Creatinine Level 12/07/2020 12/08/2019, 12/07/2019, 12/06/2019, Additional history exists Sodium Level 12/07/2020 12/08/2019, 12/07/2019, 12/06/2019, Additional history exists Depression Screening (Annual 04/09/2021 PHQ-2) COVID-19 Vaccine (4 - Booster for 05/23/2021 01/20/2021, , Pfizer series) 05/11/2020 Influenza Vaccine (#1) 2022 01/12/2021, 01/20/2020, 01/16/2019, Additional history exists Potassium Level 11/13/2022 11/13/2021, 12/08/2019, 12/07/2019, Additional history exists DTaP,Tdap,and Td Vaccines (2 - Td 11/14/2027 11/13/2017 or Tdap) Pneumococcal vaccine (65+ years) Completed 08/19/2015, Fall Risk Screen (Annual) Completed 10/21/2021 Procedures Procedure Name Priority Date/Time Associated Comments Diagnosis SARS CORONAVIRUS Routine 11/02/2021 11:08 Results for 2, PCR, V AM CDT this procedure are in the results section. IR DIALYSIS / HIGH RAD - Routine 10/21/2021 12:29 Complication Resu lts for FLOW CATHETER (most inpatients PM CDT Dialysis Catheter this procedure EXCHANGE and all Initial are in the outpatients) results section. US UPPER EXTREMITY RAD - Routine 10/17/2021 12:37 Chronic Failure R esults for RIGHT DIALYSIS (most inpatients PM CDT Renal End Stage this p rocedure MAPPING and all Renal Disease are in the outpatients) Dialysis Dependent results (HCC) section. US UPPER EXTREMITY RAD - Routine 10/17/2021 9:12 Chronic Kidney Res ults for LEFT DIALYSIS (most inpatients AM CDT Disease Stage 5 this pr ocedure MAPPING and all Glomerular are in the outpatients) Filtration Rate results Less Than 15 (HC C) section. Anemia Of Chronic Renal Disease Hyperparathyroidism Renal Secondary (HCC) Apnea Sleep Obstructive OUTSIDE DX CHEST Routine 09/26/2021 3:45 Results for PM CDT this procedure are in the results section. from Last 3 Months Results SARS Coronavirus 2, PCR, V (11/02/2021 11:08 AM CDT) [facility] Method Time Signature SARS-Coronavi Undetected Undetected 11/02/2021 OWAT vanessa-2, PCR 2:48 PM CDT Comment: SARS-CoV-2 RNA absent. ?? ----ADDITIONAL INFORMATION---- This RT-PCR test using the Xpert Xpress SARS-CoV-2/Flu/RSV assay ([employer] performed on the ScaleIO DX systems has received Emergency Use Authorization (EU A) by the U.S. Food and Drug Administration. Performanc e characteristics were verified by [facility] inic in a manner consistent with CLIA requirements . Fact sheets for this Emergency Use Autho rization (EUA) assay can be found at the following link s: For Healthcare Providers: https://www.fda.gov/media/662257/downloa d For Patients: https://www.fda.gov/media/277298/downloa d Specimen Source Nasopharyngeal Swab 11/02/2021 1:3 0 PM CDT OWAT Specimen Anatomical Collection Method Collection Time Receive d Time (Source) Location / / Volume Laterality Varies 11/02/2021 11:08 11/02/2021 1:30 AM CDT PM CDT Kyler Ibarra LAB MICROBIOLOGY - GENERAL O RDERABLES Performing Organization Address City/State/ZIP Code Phon e Number [facility] [address] [place] [address] [place] [address] System in [place] [address] IR Dialysis / High Flow Catheter Exchange [...] and dr aped in sterile fashion. Fluoroscopic scout professional sports image demonstrates a tunneled dialysis cathete r in place. Using lidocaine 1% for local anesthesia, blunt dissection was performed freeing the cat heter cuff. Catheter was removed in its entirety over two stiff Glidewires. A 9-Niuean Brite Tip s azul placed, and a [...] and dr aped in sterile fashion. Fluoroscopic scout professional sports image demonstrates a tunneled dialysis cathete r in place. Using lidocaine 1% for local anesthesia, blunt dissection was performed freeing the cat heter cuff. Catheter was removed in its entirety over two stiff Glidewires. A 9-Niuean Brite Tip s azul placed, and a [...] Jenna Neri APRN, C.N.P. IMG IR PROCEDURES US Upper Extremity Right Dialysis Mapping (10/17/2021 [...] mm Distance from right elbow crease to [facility] hial artery bifurcation: 2.7cm below. CEPHALIC VEIN: [...] Randal Weeks Jr., D.O. IMG US PROCEDURES US Upper Extremity Left Dialysis Mapping (10/17/2021 [...] Randal Weeks Jr., D.O. IMG US PROCEDURES CHEST, 2V-Outside Chest Xray (09/26/2021 3:45 PM CDT) Specimen (Source) Anatomical Collection Method Collection Time Re ceived Time Location / / Volume Laterality 09/26/2021 3:43 PM CDT Narrative [facility] - 09/26/2021 4:15 PM CDT This order has been created and auto-finalized to support the import of outside images. If available, original i nterpretation can be found on the Media Tab in Chart Review, in Document V iewer, or as an image in QREADS. If a re-interpretation or overread is re quired please follow defined workflow. ?? Provider Not In System IMG DIAGNOSTIC IMAGING ZOEY PICKENS Performing Organization Address City/State/ZIP Code Phon e Number I[facility]S I[facility]S NA from Last 3 Months Insurance Payer Benefit Plan / Subscriber ID Effective Dates Phone Addre ss Type Group [employer] [id number] 2021-Present [phone] [address] [place] [address]
--- OUTSIDE RECORDS SUMMARY | 2021-11-16 12:42 | XMS_ITS | Encounter Summary ---
:1945 Author Organization [facility] Address [address] [place] [address] Care Team Providers Name Role Phone Unavailable Primary Care Provider Unavailable Encounter Details Date Type Department Care Team Description 10/19/2021 Documentation Division of Nephrology and Stoney Shelton, Hypertension in [facility] [address] [facility] [address] [place] [id number] [phone] Social History Tobacco Use Types Packs/Day Years Used Date Smoking Tobacco: Never Assessed Sex Assigned at Date Recorded Not on file documented as of this encounter Progress Notes Emilia Shelton, RGatitoN. - 10/19/2021 9:05 AM CDT REFERRAL Cirilo Neri CNP CHIEF COMPLAINT/PURPOSE OF VISIT REASON FOR REFERRAL: Tunneled dialysis catheter exchange HISTORY OF PRESENT ILLNESS ACCESS: Palindrome Catheter Date placed - 06/14/2021 Provider - Dr. Tierney LOCATION OF ACCESS: Right internal jugular PERTINENT PROCEDURAL HISTORY: Patient referred by Cirilo Neri CNP for tunneled dialysis catheter exchange. She is being referred due to High arterial pressure during dialysis. She dialyzes at [facility] on a Sunday, and Sunday schedule. DIABETES: DM2: Diet controlled ANTICOAGULATION: None. LABORATORY RESULTS: Current Labs in [facility]. IMPRESSION/REPORT/PLAN SPECIFIC PATIENT INSTRUCTIONS: [facility] at 09:30 am for a 10:30 am procedure. You must have a health and wellness instructor to drive you home due to the sedation you will receive. You cannot drive for 24 hours after sedation. Please do not eat or drink after midnight the day of your procedure. Your procedure may be canceled or delayed if you do so. It is important to have an empty stomach to avoid problems with sedation. You may take your morning medication with a small amount of water. Bring the rest of your medicines that you take with you. Plan on spending about half to three fourths of the day in [place] for this procedure. There is generally some waiting involved prior to the procedure. Post Access Instructions: Resume your usual dialysis schedule. Appointment scheduled via [place] at Interventional Radiology. Daughter was informed of the above instructions by phone today. She requested a call after 4 pm and a faxed appointment guide has been sent to [place] for secondary review. documented in this encounter Plan of Treatment Scheduled Procedures Name Priority Associated Diagnoses Date/Time PLACEMENT ARTERIOVENOUS GRAFT UPPER Chronic Kidn ey Disease Stage 5 EXTREMITY Glomerular Filtration Rate Less Than 15 (HCC) documented as of this encounter Visit Diagnoses Not on filedocumented in this encounter
--- OUTSIDE RECORDS SUMMARY | 2021-11-16 12:43 | XMS_ITS | Encounter Summary ---
:1945 Author Organization [facility] Address [address] [place] [address] Care Team Providers Name Role Phone Unavailable Primary Care Provider Unavailable Encounter Details Date Type Department Care Team Description 07/18/2021 Orders Only Division of Nephrology and Shlomo Weeks Hypertension in [place], ., D.O. [place] [address] [facility] [address] [place] [phone] (Wo rk) Social History Tobacco Use Types [...]
--- OUTSIDE RECORDS SUMMARY | 2021-11-16 12:43 | XMS_ITS | Encounter Summary ---
:1945 Author Organization [facility] Address [address] [place] [address] Care Team Providers Name Role Phone Unavailable Primary Care Provider Unavailable Encounter Details Date Type Department Care Team Description 08/17/2021 Orders Only Division of Nephrology and Jenna Neri A PRN, Hypertension, Mandaeism C.N.P. [place], in [place], [facility] [address] [place], [place] [address] [facility] [phone] [place] [address] [phone] Social History Tobacco Use Types Packs/Day Years [...]
--- OUTSIDE RECORDS SUMMARY | 2021-11-16 12:43 | XMS_ITS | Encounter Summary ---
:1945 Author Organization [facility] Address [address] [place] [address] Care Team Providers Name Role Phone Unavailable Primary Care Provider Unavailable Encounter Details Date Type Department Care Team Description 06/15/2021 Documentation Division of Nephrology and Delbert Flor, Hypertension, [facility] Taryn Cason, M.S.W. [place], in [place], [facility] [address] [place], [place] [address] [place] [phone] [place] [address] [phone] Social History Tobacco Use Types Packs/Day Years Used Date Smoking Tobacco: Never Assessed Sex Assigned at Date Recorded Not on file documented as of this encounter Progress Notes Carmencita Flor L.I.C.S.W., M.S.W. - 06/15/2021 8:51 AM CST SUBJECTIVE The patient is scheduled to start dialysis today, SundayJune 15 at 2 pm at [facility] Dialysis unit. They have received all the necessary information for the patient to be accepted. OBJECTIVE The patient will initiate dialysis at [facility]. ASSESSMENT / PLAN ASSESSMENT Her daughter was provided with all of the necessary information regarding her dialysis schedule. PLAN Social work will be available to provide support as needed. Ria Robbins, M.S.W. 06/15/21 [employer] documented in this encounter Plan of Treatment Scheduled Procedures Name Priority Associated Diagnoses Date/Time PLACEMENT ARTERIOVENOUS GRAFT UPPER Chronic Kidn ey Disease Stage 5 EXTREMITY Glomerular Filtration Rate Less Than 15 (HCC) documented as of this encounter Visit Diagnoses Not on filedocumented in this encounter
--- OUTSIDE RECORDS SUMMARY | 2021-11-16 12:43 | XMS_ITS | Encounter Summary ---
:1945 Author Organization [facility] Address [address] [place] [address] Care Team Providers Name Role Phone Unavailable Primary Care Provider Unavailable Reason for Visit Appointment Request (Routine) - Closed Specialty Diagnoses / Procedures Referred By Contact Refer red To Contact Nephrology and Hypertension Referral ID Status Reason Start Date Expiration Date Visits Requ ested Visits Authorized [id number] Closed 11/18/2020 11/18/2021 1 1 Encounter Details Date Type Department Care Team Description 12/08/2020 External Outreach Division of Wanda Weeks Ki dney Disease Stage 5 Glomerular Filtration Rate Less Than 15 (HCC) (Primary Dx); Nephrology and Randal Whitehead Jr., Hypertension And Chronic Kidney Disease Stage 5 (HCC); Hypertension in D.O. Anemia Of Chronic Renal Disease; [place], [place] [address] [facility] Osteodystrophy Renal; [address] [place], [place] Diabetes Mellitus Type 2 (HC C); [place] [address] Apnea Sleep Obstructive [id number] [phone] Social History Tobacco Use Types Packs/Day Years Used Date Smoking Tobacco: Never Assessed Sex Assigned at Date Recorded Not on file documented as of this encounter Progress Notes Randal Weeks Jr., D.O. - 12/08/2020 11:00 AM CDT Please see scanned in note under document viewer tab for the [facility] outreach visit from this date. documented in this encounter Plan of Treatment Scheduled Procedures Name Priority Associated Diagnoses Date/Time PLACEMENT ARTERIOVENOUS GRAFT UPPER Chronic Kidn ey Disease Stage 5 EXTREMITY Glomerular Filtration Rate Less Than 15 (HCC) documented as of this encounter Visit Diagnoses Diagnosis Chronic Kidney Disease Stage 5 Glomerula r Filtration Rate Less Than 15 (HCC) - Primary Hypertension And Chronic Kidney Disease Stage 5 (HCC) Anemia Of Chronic Renal Disease Osteodystrophy Renal Diabetes Mellitus Type 2 (HCC) Apnea Sleep Obstructive documented in this encounter
--- OUTSIDE RECORDS SUMMARY | 2021-11-16 12:43 | XMS_ITS | Encounter Summary ---
:1945 Author Organization [facility] Address [address] [place] [address] Care Team Providers Name Role Phone Unavailable Primary Care Provider Unavailable Reason for Referral Outpatient (Routine) - Closed Specialty Diagnoses / Procedures Referred By Contact Candi arnold To Contact Radiology Diagnoses Chronic Kidney Disease Stage 5 Glomerular Filtration Rate Less Than 15 (HCC) Hypertension And Chronic Kidney Disease Stage 5 (HCC) Hyperparathyroidism Renal Secondary (HCC) Diabetes Mellitus Type 2 (HCC) Randal Weeks Jr., [facility] Chronic Right Heart Failure (HCC) Apnea Sleep Obstructive Proteinuria D.O. Procedures IR Dialysis / High Flow Catheter Placement [address] [place] [address] Referral ID Status Reason Start Date Expiration Date Visits Requ ested Visits Authorized [id number] Closed 06/07/2021 06/07/2022 1 1 A/C TECHNICIAN Reason for Visit Appointment Request (Routine) - Closed Specialty Diagnoses / Procedures Referred By Contact Candi arnold To Contact Nephrology and Hypertension Referral ID Status Reason Start Date Expiration Date Visits Requ ested Visits Authorized [id number] Closed 05/20/2021 05/20/2022 1 Encounter Details Date Type Department Care Team Description 06/07/2021 External Division of Micky Chronic Kidney Disease Stage 5 Glomerular Filtration Rate Less Than 15 (HCC) (Primary Dx); Outreach Nephrology and Radnal Whitehead Jr., Hypertension And Chronic Kidney Disease Stage 5 (HCC); Hypertension in D.O. Hyperparathyroidism Renal Secondary (HCC ); [address] Diabetes Mellitus Type 2 (HCC); [place], [place] Chronic Right Heart Failure (HCC); [address] [place] [address] Apnea Sleep Obstructive; [place], [place] [phone] Proteinuria [address] (Work) [phone] Social History Tobacco Use Types Packs/Day Years Used Date Smoking Tobacco: Never Assessed Sex Assigned at Date Recorded Not on file documented as of this encounter Progress Notes Randal Weeks Jr., D.O. - 06/07/2021 10:00 AM CST Please see scanned in note under document viewer tab for the [facility] [place] outreach visit from this date. 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 She is sleeping much of the time, eating 1 meal a day at most, and has required accelerating doses of diuretics recently. Her daughter helps ca re for her regularly, and we are at a point now that we need to initiate dialysis. I have been in contact with our colleagues from [facility] in [place], and our social work team, we will move towards placement of a tunneled dialysis catheter next week and initiation of dialysis next week as well. Scheduling is hampered by her daughters current recuperation from knee surgery and the patient's inability to drive herself. We have discussed home dialysis modalities, she is currently not interested in these. She is not a transplant candidate, she is currently a full code. Her hepatitis studies are negative done on the 25 April 2021 as well as a negative QuantiFERON gold study from that day as well. She is not massively fluid overloaded and her current weight is 83.4kg. Our 1st 2 dialysis sessions will be 2 hours in length and thereafter we will move to a 3-1/2 hour planned session thrice weekly. We will explore placement of a extremity access depending on her tolerance to this trial of dialysis. This is been a prolonged process up to this point. A/C TECHNICIAN documented in this encounter Plan of Treatment Scheduled Procedures Name Priority Associated Diagnoses Date/Time PLACEMENT ARTERIOVENOUS GRAFT UPPER Chronic Kidn ey Disease Stage 5 EXTREMITY Glomerular Filtration Rate Less Than 15 (HCC) documented as of this encounter Results IR Dialysis / High Flow Catheter Placement (06/14/2021 12:34 PM A/C TECHNICIAN) Anatomical Region Laterality Modality Body, Vascular Interventional RST LOS, Vascular N/A X-Ray Angiography Interventional ARZ LOS, Vascular Interventional FLA LOS Specimen (Source) Anatomical Collection Method Collection Time Re ceived Time Location / / Volume Laterality 06/14/2021 1:22 PM A/C TECHNICIAN Impressions 06/14/2021 1:27 PM A/C TECHNICIAN Placement of a tunneled right IJ dialysis catheter. Tip at the right atrium. Ready for use. EP Narrative 06/14/2021 1:27 PM A/C TECHNICIAN EXAM: IR DIALYSIS / HIGH FLOW CATHETER PLACEMENT CLINICAL HISTORY: 76-year-old female has need for vascular access for dialysis. TECHNIQUE: ?? Patient was prepared and d raped in the standard sterile fashion over the right upper chest and low neck. 1% lidocaine used fo r local anesthesia. Ultrasound was used to demonstrate patency and compressibility of the right IJ vein, and under ultrasound guidance, the vein was accessed. A picture was created and stor ed. Using Seldinger technique, a guidewire was advanced into the IVC. Over this, a 5F, 20.5cm dilator was advanced and used to approximate the length of the anticipated catheter. The wire was remov ed, and a saline-filled syringe attached to a one-way stop-cock was placed on the dilator whil e attention was turned to development of a chest wall tunnel. A small incision was made on the anterior right chest and the 14.5F, 23 cm dialysis catheter was tunneled from the chest incision to the venotomy site. A guidewire was readvanced into the IVC and the tract was serially dilated befor e placing a peel-away sheath. The catheter was advanced through the sheath and the sheath was re moved. The tip was adjusted such that it sits at the right atrium. Both lumen flush and aspirate ea sily and were capped. The venotomy sites were closed with 4-0 Vicryl, and the catheter was sutured to the skin with 2-0 Prolene. Each lumen was flushed with 4% sodium citrate solution. The catheter is ready for use. No immediate complications. For placement of this central venous acc ess, we followed catheter checklist and a standardized protocol. The position of the catheter [...] The total intra-procedural sedation time was : 23 minutes. Procedure Note Maximo Tierney M.D. - 06/14/2021Fo rmatting of this note might be different from the original. EXAM: IR DIALYSIS / HIGH FLOW CATHETER P LACEMENT CLINICAL HISTORY: 76-year-old female has need for vascular access for dialysis. TECHNIQUE: Patient was prepared and drap ed in the standard sterile fashion over the right upper chest and low neck. 1% lidocaine used fo r local anesthesia. Ultrasound was used to demonstrate patency and compressibility of the right IJ vein, and under ultrasound guidance, the vein was accessed. A picture was created and stor ed. Using Seldinger technique, a guidewire was advanced into the IVC. Over this, a 5F, 20.5cm dilator was advanced and used to approximate the length of the anticipated catheter. The wire was remov ed, and a saline-filled syringe attached to a one-way stop-cock was placed on the dilator whil e attention was turned to development of a chest wall tunnel. A small incision was made on the anterior right chest and the 14.5F, 23 cm dialysis catheter was tunneled from the chest incision to the venotomy site. A guidewire was readvanced into the IVC and the tract was serially dilated befor e placing a peel-away sheath. The catheter was advanced through the sheath and the sheath was re moved. The tip was adjusted such that it sits at the right atrium. Both lumen flush and aspirate ea sily and were capped. The venotomy sites were closed with 4-0 Vicryl, and the catheter was sutured to the skin with 2-0 Prolene. Each lumen was flushed with 4% sodium citrate solution. The catheter is ready for use. No immediate complications. For placement of this central venous acc ess, we followed catheter checklist and a standardized protocol. The position of the catheter [...] The total intra-procedural sedation time was : 23 minutes. IMPRESSION: Placement of a tunneled right IJ dialysi s catheter. Tip at the right atrium. Ready for use. EP Tom Neely Jr.OGatito ELIAS IR PROCEDURES documented in this encounter Visit Diagnoses Diagnosis Chronic Kidney Disease Stage 5 Glomerula r Filtration Rate Less Than 15 (HCC) - Primary Hypertension And Chronic Kidney Disease Stage 5 (HCC) Hyperparathyroidism Renal Secondary (HCC ) Diabetes Mellitus Type 2 (HCC) Chronic Right Heart Failure (HCC) Apnea Sleep Obstructive Proteinuria Chronic Kidney Disease Stage 5 Glomerula r Filtration Rate Less Than 15 (HCC) Hypertension And Chronic Kidney Disease Stage 5 (HCC) Hyperparathyroidism Renal Secondary (HCC ) Diabetes Mellitus Type 2 (HCC) Chronic Right Heart Failure (HCC) Apnea Sleep Obstructive Proteinuria documented in this encounter
--- OUTSIDE RECORDS SUMMARY | 2021-11-16 12:43 | XMS_ITS | Encounter Summary ---
:1945 Author Organization [facility] Address [address] [place] [address] Care Team Providers Name Role Phone Unavailable Primary Care Provider Unavailable Encounter Details Date Type Department Care Team Description 2021 Orders Only Division of Nephrology Randal Weeks Kidney Disease and Hypertension in C Jr. DTrey Stage 5 Glomerular [place], [place] [address] Filtration Rate Less [address] [place], [place] Than 15 (HCC) ([place] [address] Dx) [id number] [phone] Social History Tobacco Use Types Packs/Day Years Used Date Smoking Tobacco: Never Assessed Sex Assigned at Date Recorded Not on file documented as of this encounter Plan of Treatment Scheduled Procedures Name Priority Associated Diagnoses Date/Time PLACEMENT ARTERIOVENOUS GRAFT UPPER Chronic Kidn ey Disease Stage 5 EXTREMITY Glomerular Filtration Rate Less Than 15 (HCC) documented as of this encounter Results SARS-CoV-2 Tushar Ab, Semi-Quant, S (06/14/2021 11:49 AM RESIDENTIAL SUPERVISOR) athologist Signature SARS-CoV-2 Positive 06/14/2021 [facility] Tushar Ab, 5:17 PM RESIDENTIAL SUPERVISOR Interp, S Comment: Antibodies to the SARS-CoV-2 spike glyco protein detected. These results suggest recent o r prior SARS-CoV-2 infection and/or vaccination. Antibody levels >/= 0.80 U/mL are considered posi tive by this assay. No minimum antibody level or thre shold has been established to indicate long-term p rotective immunity against re-infection. Serologic results should not be used to diagnose recent SA RS-CoV-2 infection. False-positive results for Ig G antibodies may occur due to cross-reactivity from p re-existing antibodies or other possible causes. SARS-CoV-2 Tushar Ab, Quant, S >250 U/mL 06/14/2021 5:17 PM RESIDENTIAL SUPERVISOR [facility] Comment: ----ADDITIONAL INFORMATION---- Testing was performed using the [employer] Anti-SARS- CoV-2 S Reagent assay from [employer], which has received Emergency Use Authorization (EU A) by the U.S. Food and Drug Administration. Fact sheets for this Emergency Use Autho rization (EUA) assay can be found at the following link s: For Healthcare Providers: https://www.fda.gov/media/266223/downloa d For Patients: https://www.fda.gov/media/279757/downloa d Specimen Anatomical Collection Method Collection Time Receive d Time (Source) Location / / Volume Laterality Blood (Blood, 06/14/2021 11:49 06/14/2021 4:40 Venous) AM RESIDENTIAL SUPERVISOR PM RESIDENTIAL SUPERVISOR Randal Weeks Jr., D.O. LAB MICROBIOLOGY - BLOOD O CORA Performing Organization Address City/[facility]/ZIP Code Phon e Number [facility] [address] DEVON Berrios [place] [address] SU[facility] [place] [address] Laboratory Medicine and Pathology [address] [place] [address] Dr. OSORIO Hepatitis B Surface Antigen (06/14/2021 11:49 AM RESIDENTIAL SUPERVISOR) athologist Signature HBs Antigen, S Negative Negative 06/14/2021 [facility] 8:45 PM RESIDENTIAL SUPERVISOR Specimen Anatomical Collection Method Collection Time Receive d Time (Source) Location / / Volume Laterality Blood (Blood, 06/14/2021 11:49 06/14/2021 3:27 Venous) AM RESIDENTIAL SUPERVISOR PM RESIDENTIAL SUPERVISOR Randal Weeks Jr., D.O. LAB MICROBIOLOGY - BLOOD O CORA Performing Organization Address City/[facility]/ZIP Code Phon e Number [facility] [address] DEVON Berrios [place] [address] SUPPORT CENTER [facility] [place] [address] Laboratory Medicine and Pathology [address] [place] [address] Dr. OSORIO documented in this encounter Visit Diagnoses Diagnosis Chronic Kidney Disease Stage 5 Glomerula r Filtration Rate Less Than 15 (HCC) - Primary documented in this encounter
--- OUTSIDE RECORDS SUMMARY | 2021-11-16 12:43 | XMS_ITS | Encounter Summary ---
:1945 Author Organization [facility] Address [address] [place] [address] Care Team Providers Name Role Phone Unavailable Primary Care Provider Unavailable Encounter Details Date Type Department Care Team Description 08/01/2021 Orders Only Department of Nephrology in [facility] Dave Whitehead Jr.[place], [place] D.O. [address] [place] [address] [place], [place] [phone] (Wo rk) Social History Tobacco Use Types [...]
--- OUTSIDE RECORDS SUMMARY | 2021-11-16 12:43 | XMS_ITS | Encounter Summary ---
:1945 Author Organization [facility] Address [address] [place] [address] Care Team Providers Name Role Phone Unavailable Primary Care Provider Unavailable Encounter Details Date Type Department Care Team Description 06/23/2021 Orders Only Division of Nephrology and Jenna Neri A PRN, Hypertension, [facility] [place], in [place], [facility] [address] [place], [place] [address] [facility] [address] [place] [address] [phone] Social History Tobacco Use Types Packs/Day Years [...]
--- OUTSIDE RECORDS SUMMARY | 2021-11-16 12:43 | XMS_ITS | Encounter Summary ---
:1945 Author Organization [facility] Address [address] [place] [address] Care Team Providers Name Role Phone Unavailable Primary Care Provider Unavailable Reason for Visit Appointment Request (Routine) - Closed Specialty Diagnoses / Procedures Referred By Contact Refer red To Contact Nephrology and Hypertension Referral ID Status Reason Start Date Expiration Date Visits Requ ested Visits Authorized [id number] Closed 03/30/2021 03/30/2022 1 1 Encounter Details Date Type Department Care Team Description 05/02/2021 External Division of Micky, Chronic Kidney Disease Stage 5 Glomerular Filtration Rate Less Than 15 (HCC) (Primary Dx); Outreach Nephrology and Randal Whitehead Jr., Hypertension And Chronic Kidney Disease Stage 5 (HCC); Hypertension in D.O. Osteodystrophy Renal; [address] Anemia Of Chronic Renal Disease; [place], [place] Hyperparathyroidism Renal Se condary (HCC); [address] [place] [address] Diabetes Mellitus Type 2 ([facility]); [place], [place] [phone] Chronic Right Heart Failure ([facility]) [address] (Work) [phone] Social History Tobacco Use Types Packs/Day Years Used Date Smoking Tobacco: Never Assessed Sex Assigned at Date Recorded Not on file documented as of this encounter Progress Notes Randal Weeks Jr., D.O. - 05/02/2021 1:30 PM CST Please see scanned in note under document viewer tab for the [facility] [place] outreach visit from this date. NATION OPERATOR documented in this encounter Plan of Treatment Scheduled Procedures Name Priority Associated Diagnoses Date/Time PLACEMENT ARTERIOVENOUS GRAFT UPPER Chronic Kidn ey Disease Stage 5 EXTREMITY Glomerular Filtration Rate Less Than 15 (HCC) documented as of this encounter Visit Diagnoses Diagnosis Chronic Kidney Disease Stage 5 Glomerula r Filtration Rate Less Than 15 (HCC) - Primary Hypertension And Chronic Kidney Disease Stage 5 (HCC) Osteodystrophy Renal Anemia Of Chronic Renal Disease Hyperparathyroidism Renal Secondary (HCC ) Diabetes Mellitus Type 2 (HCC) Chronic Right Heart Failure (HCC) documented in this encounter
--- OUTSIDE RECORDS SUMMARY | 2021-11-16 12:43 | XMS_ITS | Encounter Summary ---
:1945 Author Organization [facility] Address [address] [place] [address] Care Team Providers Name Role Phone Unavailable Primary Care Provider Unavailable Reason for Visit Appointment Request (Routine) - Closed Specialty Diagnoses / Procedures Referred By Contact Refer red To Contact Nephrology and Hypertension Referral ID Status Reason Start Date Expiration Date Visits Requ ested Visits Authorized [id number] Closed 02/11/2021 02/11/2022 1 1 Encounter Details Date Type Department Care Team Description 02/28/2021 External Division of Micky, Chronic Kidney Disease Stage 5 Glomerular Filtration Rate Less Than 15 (HCC) (Primary Dx); Outreach Nephrology and Randal Whitehead Jr., Hypertension And Chronic Kidney Disease Stage 5 (HCC); Hypertension in D.O. Anemia Of Chronic Renal Disease; [address] Osteodystrophy Renal; [place], [place] Diabetes Mellitus Type 2 (HC C); [address] [facility] [address] Hyperparathyroidism Renal Secondary (HCC ); [place], [place] [phone] Chronic Right Heart Failure (HCC); [address] (Work) Apnea Sleep Obstructive [phone] Social History Tobacco Use Types Packs/Day Years Used Date Smoking Tobacco: Never Assessed Sex Assigned at Date Recorded Not on file documented as of this encounter Progress Notes Randal Weeks Jr., D.O. - 02/28/2021 4:00 PM CST Please see scanned in note under document viewer tab for the [facility] [place] outreach visit from this date. She is nearing a point which we will need to make a decision with respect to dialysis. Her creatinine has risen to 4.4 mg/dL with a BUN of 51. She has some early uremic features. She has some evidence of volume overload today, I have increased her diuretics temporarily. I will be seeing her monthly, and she may need assistance from the social work team soon to plan fordialysis initiation. ENTIALING SPECIALIST documented in this encounter Plan of Treatment [...] Osteodystrophy Renal Diabetes Mellitus Type 2 (HCC) Hyperparathyroidism Renal Secondary (HCC ) Chronic Right Heart Failure (HCC) Apnea Sleep Obstructive documented in this encounter
--- OUTSIDE RECORDS SUMMARY | 2021-11-16 12:43 | XMS_ITS | Encounter Summary ---
:1945 Author Organization [facility] Address [address] [place] [address] Care Team Providers Name Role Phone Unavailable Primary Care Provider Unavailable Encounter Details Date Type Department Care Team Description 06/17/2021 Orders Only Division of Nephrology and Jenna Neri A PRN, Hypertension, [facility] [place], in [place], [facility] [address] [place], [place] [address] [facility] [address] [place] [address] [phone] Social History Tobacco Use Types Packs/Day Years [...]
--- OUTSIDE RECORDS SUMMARY | 2021-11-16 12:43 | XMS_ITS | Encounter Summary ---
:1945 Author Organization [facility] Address [address] [place] [address] Care Team Providers Name Role Phone Unavailable Primary Care Provider Unavailable Reason for Referral Outpatient (Routine) - Closed Specialty Diagnoses / Procedures Referred By Contact Refer red To Contact Radiology Diagnoses Chronic Kidney Disease Stage 5 Glomerular Filtration Rate Less Than 15 (HCC) Hypertension And Chronic Kidney Disease Stage 5 (HCC) Hyperparathyroidism Renal Secondary (HCC) Diabetes Mellitus Type 2 (HCC) Randal Weeks Jr[facility] Chronic Right Heart Failure (HCC) Apnea Sleep Obstructive Proteinuria D.O. Procedures IR Dialysis / High Flow Catheter Placement [address] [place], [place] [address] Referral ID Status Reason Start Date Expiration Date Visits Requ ested Visits Authorized [id number] Closed 06/07/2021 06/07/2022 1 1 HELPER PRESERVES Reason for Visit Auth/Cert Specialty Diagnoses / Procedures Referred By Contact Refer red To Contact Diagnoses Chronic Kidney Disease Stage 5 Glomerular Filtration Rate Less Than 15 (HCC) Hypertension And Chronic Kidney Disease Stage 5 (HCC) Hyperparathyroidism Renal Secondary (HCC) Diabetes Mellitus Type 2 (HCC) Chronic Right Heart Failure (HCC) Apnea Sleep Obstructive Proteinuria Procedures IR DIALYSIS / HIGH FLOW CATHETER PLACEMENT Referral ID Status Reason Start Date Expiration Date Visits Requ ested Visits Authorized [id number] 1 1 Encounter Details Date Type Department Care Team Description 06/14/2021 Hospital Department of Randal Weeks Jr., D.OGatito [address] [place] [phone] Chronic Kidney Disease Stage 5 Glomerula r Filtration Rate Less Than 15 (HCC); Encounter Radiology in Maximo Tierney M.D. [address] [place] [address] Hypertension And Chronic Kidney Disease Stage 5 ([facility]); Trung Berrios Ricardo A, M.D. Hyperparathyroidism Renal Secondary ([facility] ); [place] Diabetes Mellitus Type 2 (HC C); [address] [facility] Chronic Right Heart Failure (HCC); [place], [place] Apnea Sleep Ob structive; [address] Proteinuria [phone] Social History Tobacco Use Types Packs/Day Years Used Date Smoking Tobacco: Never Assessed Sex Assigned at Date Recorded Not on file documented as of this encounter Last Filed Vital Signs Vital Sign Reading Time Taken Comments Blood Pressure 142/92 06/14/2021 1:35 PM [employer]OOK HEL[employer]ERVES Pulse 65 06/14/2021 1:35 PM [employer] Temperature 36.8 ??C (98.2 ??F) 06/14/2021 12:50 PM [employer]ERVES Respiratory Rate 14 06/14/2021 1:35 PM [employer] Oxygen Saturation 100% 06/14/2021 1:35 PM [employer] Inhaled Oxygen Concentration - - Weight - - Height - - Body Mass Index - - documented in this encounter Discharge Instructions AttachmentsThe following attachments cannot be sent through Care Everywhere. Central Venous Catheter: Reducing Your Risk of Infection (Yi)Hemodialysis Catheters (Yi)documented in this encounter Medications at Time of Discharge Medication Sig Dispensed Refills Start Date End Date carvediloL (COREG) 12.5 Take 37.5 mg by 0 mg tablet mouth 2 (two) times a day with meals. furosemide (LASIX) 20 mg Take 20 mg by mouth 0 tablet 2 (two) times a day. hydrALAZINE (APRESOLINE) Take 75 mg by mouth 0 50 mg tablet every 8 (eight) hours. omeprazole (PriLOSEC) 20 Take 20 mg by mouth [address] capsule every morning before breakfast. isosorbide mononitrate TAKE 1 TABLET(30 MG) 90 tablet 3 06/17/2021 (IMDUR) 30 mg 24 hr BY MOUTH DAILY tablet documented as of this encounter Procedure Notes Solitario Gore M.D. - 06/14/2021 1:20 PM CST PATIENT DISPOSITION Return to Outpatient Unit for recovery. Discharge patient when discharge criteria met. POST-PROCEDURE DIAGNOSIS Need for dialysis PROCEDURE PERFORMED AND DESCRIPTION Placement of right IJ vein tunneled dialysis catheter PROCEDURE DETAILS See Radiology Report SPECIMENS REMOVED None FINDINGS Tip in upper right atrium. Ready to use. PRIMARY PROCEDURALIST Niall Nino COMPLICATIONS None. DRAINS None. IMPLANTS None. ANESTHESIA Moderate Sedation. FLUIDS See MAR ESTIMATED BLOOD LOSS <5ml CURRENT MEDICATIONS No Medication Changes FOLLOW-UP LETTER None. MAY RETURN TO WORK Not applicable PATIENT INSTRUCTIONS No return appointment HELPER PRESERVES documented in this encounter Plan of Treatment Scheduled Procedures Name Priority Associated Diagnoses Date/Time PLACEMENT ARTERIOVENOUS GRAFT UPPER Chronic Kidn ey Disease Stage 5 EXTREMITY Glomerular Filtration Rate Less Than 15 (HCC) documented as of this encounter Procedures Procedure Name Priority Date/Time Associated Comments Diagnosis IR DIALYSIS / RAD - Routine 06/14/2021 12:34 Chronic Kidney Results for this HIGH FLOW (most inpatients PM [employer]OOK HEL[employer] PRESERVES Disease Stage 5 procedur e are in CATHETER and all Glomerular the results PLACEMENT outpatients) Filtration Rate section. Less Than 15 (HCC) Hypertension And Chronic Kidney Disease Stage 5 (HCC) Hyperparathyroidi sm Renal Secondary (HCC) Diabetes Mellitus Type 2 (HCC) Chronic Right Heart Failure (HCC) Apnea Sleep Obstructive Proteinuria documented in this encounter Results IR Dialysis / High Flow Catheter Placement (06/14/2021 12:34 PM COOK HELPER PRESERVES) Anatomical Region Laterality Modality Body, Vascular Interventional RST LOS, Vascular N/A X-Ray Angiography Interventional ARZ LOS, Vascular Interventional FLA LOS Specimen (Source) Anatomical Collection Method Collection Time Re ceived Time Location / / Volume Laterality 06/14/2021 1:22 PM [employer] HEL[employer] PRESERVES Impressions 06/14/2021 1:27 PM [employer]OOK HELPER PRESERVES Placement of a tunneled right IJ dialysis catheter. Tip at the right atrium. Ready for use. EP Narrative 06/14/2021 1:27 PM [employer] HELPER PRESERVES EXAM: IR DIALYSIS / HIGH FLOW CATHETER [...] Sleep Obstructive Proteinuria documented in this encounter Administered Medications Inactive Administered Medications - up to 3 most recent administrations Medication Order MAR Action Action Date Dose Rate Site fentaNYL injection 25 mcg Given 06/14/2021 12:22 PM [employer] HEL[employer] PRESERVES 25 mcg (SUBLIMAZE) 25 mcg, intravenous, Every 2 min PRN, sedation, or pain before and during sedation procedure, Starting on Sun06/14/21 at 1211, Intraprocedure (RAD), Administer over 1 minute immediately prior to the procedure. May repeat every 2 minutes to a maximum of 200 mcg, until pain score of 3 or less, or until the patient meets the pain comfort goal. Do not give if respiratory rate is less than 8 breaths/minute Given 06/14/2021 12:18 PM [employer] PRESERVES 25 mcg Given 06/14/2021 12:14 PM [employer]OOK HELPER PRESERVES 25 mcg flumazeniL injection 0.2 mg (ROMAZICON) 0.2 mg, intravenous, Once as needed, rev ersal, Starting on Sun06/14/21 at 1211, For 1 dose, Intraprocedure (RAD), Administer once if patient has a RASS score of -4, -5 and has a respiratory rate less than 8 breaths/minute. lidocaine-sodium bicarbonate (buffered) Given 06/14/2021 12:30 P M [employer] PRESERVES 10 mL 0.9%-8.4% injection infiltration, Code/trauma/sedation medication, Starting on Sun06/14/21 at 1230 midazolam (PF) injection 0.5 mg (VERSED) Given 06/14/2021 12:22 PM [employer] HEL[employer] PRESERVES 0.5 mg 0.5 mg, intravenous, Every 2 min PRN, sedation, Starting on Sun06/14/21 at 1211, Intraprocedure (RAD), If RASS greater than -3, give additional dose(s) of 0.5 mg IV every 2 minutes for a maximum of 5 mg. Do not give if respiratory rate is less than 8 breaths/minute. Given 06/14/2021 12:18 PM [employer]OOK HELPER PRESERVES 0.5 mg Given 06/14/2021 12:14 PM COOK HELPER PRESERVES 0.5 mg NaCl 0.9% infusion 20 mL/hr, intravenous, Once as needed, t o keep vein open, Starting on Sun06/14/21 at 1211, For 1 dose, Intraprocedure (RAD) naloxone injection 0.2 mg (NARCAN) 0.2 mg, intravenous, Once as needed, res piratory depression, Starting on Sun06/14/21 at 1211, For 1 dose, Intraprocedure (RAD ), Administer once if patient has a RASS score of -4, -5 and has a respiratory rate less than 8 breaths/minute. ondansetron (PF) injection 4 mg (ZOFRAN) 4 mg, intravenous, Once as needed, nausea, vomiting, S tarting on Sun06/14/21 at 1211, For 1 dose, Intraprocedure (RAD) sodium citrate 4 % injection Given 06/14/2021 12:27 PM COOK HELPER PRESERVES 6 mL Code/trauma/sedation medication, Starting on Sun06/14/21 at 1227 documented in this encounter Active and Recently Administered Medications Times are shown in [employer]ERVES. PRN Medication Order 06/12/2021 06/13/2021 06/14/2021 fentaNYL injection 25 mcg (SUBLIMAZE) 1212 (Given - Provider: Randal Caban R.N.)1214 (Given - Provider: Randal Caban R.N.)1218 (Given - Provider: Randal Caban R.N.)1222 (Given - Provider: Randal Caban R.N.) 25 mcg, intravenous, Every 2 min PRN, se dation, or pain before and during sedation procedure, Starting on Sun06/14/21 at 1211, Intraprocedure (RAD), Administer over 1 minute immediately prior to the proc edure. May repeat every 2 minutes to a m aximum of 200 mcg, until pain score of 3 or less, or until the patient meets the pain comfort goal. Do not give if respiratory rate is less than 8 breaths/minute flumazeniL injection 0.2 mg (ROMAZICON) 0.2 mg, intravenous, Once as needed, rev ersal, Starting on Sun06/14/21 at 1211, For 1 dose, Intraprocedure (RAD), Administer once if patient has a RASS score of -4, -5 and has a respiratory rate less than 8 breaths/minute. lidocaine-sodium bicarbonate (buffered) 0.9%-8.4% injection (COM PLETED) 1230 (Given - Provider: Maximo Tierney M.D.) infiltration, Code/trauma/sedation medication, Starting on Sun at 1230 midazolam (PF) injection 0.5 mg (VERSED) 1212 (Given - Provider: Randal Caban R.N.)1214 (Given - Provider: Randal Caban R.N.)1218 (Given - Provider: Randal Caban R.N.)1222 (Given - Provider: Randal Caban R.N.) 0.5 mg, intravenous, Every 2 min PRN, se dation, Starting on Sun06/14/21 at 1211, Intraprocedure (RAD), If RASS greater than -3, give additional dose(s) of 0.5 mg IV every 2 minutes for a maximum of 5 mg. Do not give if respiratory rate is less than 8 breaths/minute. NaCl 0.9% infusion 20 mL/hr, intravenous, Once as needed, t o keep vein open, Starting on Sun06/14/21 at 1211, For 1 dose, Intraprocedure (RAD) naloxone injection 0.2 mg (NARCAN) 0.2 mg, intravenous, Once as needed, res piratory depression, Starting on Sun06/14/21 at 1211, For 1 dose, Intraprocedure (RAD), Administer once if patient has a RASS score of -4, -5 and has a respiratory rate less than 8 breaths/minute. ondansetron (PF) injection 4 mg (ZOFRAN) 4 mg, intravenous, Once as needed, nause a, vomiting, Starting on Sun06/14/21 at 1211, For 1 dose, Intraprocedure (RAD) sodium citrate 4 % injection (COMPLETED) 1227 (Given - Provider: Solitario Eller M.D.) Code/trauma/sedation medication, Starting on Sun06/14/21 at 1227 documented in this encounter
--- OUTSIDE RECORDS SUMMARY | 2021-11-16 12:43 | XMS_ITS | Encounter Summary ---
:1945 Author Organization [facility] Address [address] [place] [address] Care Team Providers Name Role Phone Unavailable Primary Care Provider Unavailable Reason for Visit Appointment Request (Routine) - Closed Specialty Diagnoses / Procedures Referred By Contact Refer red To Contact Nephrology and Hypertension Referral ID Status Reason Start Date Expiration Date Visits Requ ested Visits Authorized [id number] Closed 01/07/2021 01/07/2022 1 1 Encounter Details Date Type Department Care Team Description 01/17/2021 External Division of Micky, Farhana An d Chronic Kidney Disease Stage 5 (HCC) (Primary Dx); Outreach Nephrology and Randal Whitehead Jr., Chronic Kidn ey Disease Stage 5 Glomerular Filtration Rate Less Than 15 (HCC); Hypertension in D.O. Anemia Of Chronic Renal Disease; [address] Diabetes Mellitus Type 2 ([facility]); [place], [place] Hyperparathyroidism Renal Se condary ([facility]); [address] [place] [id number] Apnea Sleep Obstructive; [place], [place] [phone] Chronic Right Heart Failure ([facility]) [address] (Work) [phone] Social History Tobacco Use Types Packs/Day Years Used Date Smoking Tobacco: Never Assessed Sex Assigned at Date Recorded Not on file documented as of this encounter Progress Notes Randal Weeks Jr., D.O. - 01/17/2021 2:00 PM CDT Please see scanned in note under document viewer tab for the [facility] outreach visit from this date. documented in this encounter Plan of Treatment Scheduled Procedures Name Priority Associated Diagnoses Date/Time PLACEMENT ARTERIOVENOUS GRAFT UPPER Chronic Kidn ey Disease Stage 5 EXTREMITY Glomerular Filtration Rate Less Than 15 (HCC) documented as of this encounter Visit Diagnoses Diagnosis Hypertension And Chronic Kidney Disease Stage 5 (HCC) - Primary Chronic Kidney Disease Stage 5 Glomerula r Filtration Rate Less Than 15 (HCC) Anemia Of Chronic Renal Disease Diabetes Mellitus Type 2 (HCC) Hyperparathyroidism Renal Secondary (HCC ) Apnea Sleep Obstructive Chronic Right Heart Failure (HCC) documented in this encounter
--- OUTSIDE RECORDS SUMMARY | 2021-11-16 12:43 | XMS_ITS | Encounter Summary ---
:1945 Author Organization [facility] Address [address] [place] [address] Care Team Providers Name Role Phone Unavailable Primary Care Provider Unavailable Encounter Details Date Type Department Care Team Description 09/02/2021 Clinical Communication Division of Nephrology Randal Weeks and Hypertension odilia Whitehead Jr., D.O. [place], [place] [address] [place] [address] [phone] Social History Tobacco Use Types Packs/Day Years Used Date Smoking Tobacco: Never Assessed Sex Assigned at Date Recorded Not on file documented as of this encounter Miscellaneous Notes Telephone Encounter - Sushant Castillo - 09/02/2021 3:12 PM CDT Caller is: Courtney Berry If not the patient, does the caller have authorization? Reason for call:PerscriptionZofran or anything for nausea Pertinent Information: Has not been able to keep food down 2 - 3 weeks Preferred Communication Method: Call patient [phone] Patient pharmacy: [id number] [place] [id number] [facility]?[phone] Additional instructions: documented in this encounter Plan of Treatment Scheduled Procedures Name Priority Associated Diagnoses Date/Time PLACEMENT ARTERIOVENOUS GRAFT UPPER Chronic Kidn ey Disease Stage 5 EXTREMITY Glomerular Filtration Rate Less Than 15 (HCC) documented as of this encounter Visit Diagnoses Not on filedocumented in this encounter
--- OUTSIDE RECORDS SUMMARY | 2021-11-16 12:43 | XMS_ITS | Encounter Summary ---
:1945 Author Organization [facility] Address [address] [place] [address] Care Team Providers Name Role Phone Unavailable Primary Care Provider Unavailable Encounter Details Date Type Department Care Team Description 07/18/2021 Documentation Division of Nephrology and Dave Weeks Hypertension in [place], , D.O. [place] [address] [facility] [address] [place] [phone] [phone] (Wo rk) Social History Tobacco Use Types Packs/Day Years Used Date Smoking Tobacco: Never Assessed Sex Assigned at Date Recorded Not on file documented as of this encounter Progress Notes Randal Weeks Jr., D.O. - 07/18/2021 2:57 PM CDT Care coordination note: Please see Melida note from today. Her blood pressure continues to be very difficult to manage. She has severe resistant hypertension, which has worsened with the initiation dialysis, and it is usual inciting renin release. On arrival to dialysis today her blood pressure was 176 over 78, and within our of initiating dialysis during which time we are pulling 1 L, her blood pressures now 215/98. 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 I am going to increase her lisinopril to 20 mg to be taken in the mornings. I expect that very soon we are going to see a regulation of her blood pressure, and we will need to cut back on some of her robust doses and a number of medications. Her current regimen includes: Carvedilol 37.5 mg twice daily Furosemide 40 mg orally daily Hydralazine 75 mg t.i.d. Lisinopril 20 mg orally daily Imdur 30 mg orally daily documented in this encounter Plan of Treatment Scheduled Procedures Name Priority Associated Diagnoses Date/Time PLACEMENT ARTERIOVENOUS GRAFT UPPER Chronic Kidn ey Disease Stage 5 EXTREMITY Glomerular Filtration Rate Less Than 15 (HCC) documented as of this encounter Visit Diagnoses Not on filedocumented in this encounter
--- OUTSIDE RECORDS SUMMARY | 2021-11-16 12:43 | XMS_ITS | Encounter Summary ---
:1945 Author Organization [facility] Address [address] [place] [address] Care Team Providers Name Role Phone Unavailable Primary Care Provider Unavailable Reason for Visit Reason Comments Med Refill Encounter Details Date Type Department Care Team Description 08/09/2021 Refill Department of Nephrology in [facility], Randal Whitehaed Jr., Med Refill [place], [place] D.O. [address] [place] [address] [place] [address] [phone] (Wo rk) Social History Tobacco Use Types [...]
--- OUTSIDE RECORDS SUMMARY | 2021-11-16 12:43 | XMS_ITS | Encounter Summary ---
:1945 Author Organization [facility] Address [address] [place] [address] Care Team Providers Name Role Phone Unavailable Primary Care Provider Unavailable Reason for Visit Appointment Request (Routine) - Closed Specialty Diagnoses / Procedures Referred By Contact Refer red To Contact Nephrology and Hypertension Referral ID Status Reason Start Date Expiration Date Visits Requ ested Visits Authorized [id number] Closed 03/18/2021 03/18/2022 1 1 Encounter Details Date Type Department Care Team Description 03/28/2021 External Division of Micky, Farhana An d Chronic Kidney Disease Stage 5 (HCC) (Primary Dx); Outreach Nephrology and Randal Whitehead Jr., Chronic Kidn ey Disease Stage 5 Glomerular Filtration Rate Less Than 15 (HCC); Hypertension in D.O. Anemia Of Chronic Renal Disease; [address] Hyperparathyroidism Renal Secondary (HCC ); [place], [place] Diabetes Mellitus Type 2 (HC C); [address] [place] [phone] Infection Urinary Tract [place], [place] [phone] (Work) [phone] Social History Tobacco Use Types Packs/Day Years Used Date Smoking Tobacco: Never Assessed Sex Assigned at Date Recorded Not on file documented as of this encounter Progress Notes Randal Weeks Jr., D.O. - 03/28/2021 1:30 PM CST Please see scanned in note under document viewer tab for the [facility] outreach visit from this date. ISITION EDITOR documented in this encounter Plan of Treatment [...] (HCC ) Diabetes Mellitus Type 2 (HCC) Infection Urinary Tract documented in this encounter
--- OUTSIDE RECORDS SUMMARY | 2021-11-16 12:43 | XMS_ITS | Encounter Summary ---
:1945 Author Organization [facility] Address [address] [place] [address] Care Team Providers Name Role Phone Unavailable Primary Care Provider Unavailable Encounter Details Date Type Department Care Team Description 07/06/2021 Orders Only Division of Nephrology and Jenna Neri A PRN, Hypertension, [employer] C.N.P. [place], in [place], [place] [address] [place], [place] [address] [facility] [address] [place] [address] [phone] Social History Tobacco Use Types Packs/Day Years [...]
--- OUTSIDE RECORDS SUMMARY | 2021-11-16 12:43 | XMS_ITS | Encounter Summary ---
:1945 Author Organization [facility] Address [address] [place] [address] Care Team Providers Name Role Phone Unavailable Primary Care Provider Unavailable Reason for Visit Reason Comments needs RX for gabapentin Encounter Details Date Type Department Care Team Description 07/22/2021 Clinical Division of Micky, needs RX for Communication Nephrology and Randal Whitehead Jr., gabapentin Hypertension in D.O. [place], [place] [address] [facility] [address] [place] [address] [phone] Social History Tobacco Use Types Packs/Day Years Used Date Smoking Tobacco: Never Assessed Sex Assigned at Date Recorded Not on file documented as of this encounter Miscellaneous Notes Telephone Encounter - Yanet Conteh - 07/22/2021 2:49 PM CDT Daughter Irma called and said that patient has been out of gabapentin 100 mg for a week now (she forgot to mention it to you when she saw you on Sunday). She would like it to be called into [facility] in [place] at [phone]. Thanks documented in this encounter Plan of Treatment Scheduled Procedures Name Priority Associated Diagnoses Date/Time PLACEMENT ARTERIOVENOUS GRAFT UPPER Chronic Kidn ey Disease Stage 5 EXTREMITY Glomerular Filtration Rate Less Than 15 (HCC) documented as of this encounter Visit Diagnoses Not on filedocumented in this encounter
--- OUTSIDE RECORDS SUMMARY | 2021-11-16 12:43 | XMS_ITS | Encounter Summary ---
:1945 Author Organization [facility] Address [address] [place] [address] Care Team Providers Name Role Phone Unavailable Primary Care Provider Unavailable Encounter Details Date Type Department Care Team Description 07/22/2021 Orders Only Division of Nephrology Randal Weeksension And Chronic Kidney Disease Stage 5 (HCC) (Primary Dx); and Hypertension in Charley Bolden D.O. Anemia Of Chronic Renal Disease [place], [place] [address] [facility] [address] [place] [address] [phone] Social History Tobacco Use Types Packs/Day Years [...] Kidney Disease Stage 5 (HCC) - Primary Anemia Of Chronic Renal Disease documented in this encounter
--- OUTSIDE RECORDS SUMMARY | 2021-11-16 12:43 | XMS_ITS | Encounter Summary ---
:1945 Author Organization [facility] Address [address] [place] [address] Care Team Providers Name Role Phone Unavailable Primary Care Provider Unavailable Reason for Visit Reason Comments Med Refill Encounter Details Date Type Department Care Team Description 04/19/2021 Refill Division of Nephrology and Micky, Shlomo Whitehead Jr., Med Refill Hypertension in [facility] [address] [facility] [address] [place] [address] [place] [address] [phone] Social History Tobacco Use Types Packs/Day Years [...]
--- OUTSIDE RECORDS SUMMARY | 2021-11-16 12:43 | XMS_ITS | Encounter Summary ---
:1945 Author Organization [facility] Address [address] [place] [address] Care Team Providers Name Role Phone Unavailable Primary Care Provider Unavailable Encounter Details Date Type Department Care Team Description 11/10/2020 Orders Only Division of Nephrology and Shlomo Weeks Hypertension in [place], ., D.O. [place] [address] [facility] [address] [place] [address] [phone] (Wo rk) Social History Tobacco Use Types [...]
--- OUTSIDE RECORDS SUMMARY | 2021-11-16 12:43 | XMS_ITS | Encounter Summary ---
:1945 Author Organization [facility] Address [address] [place] [address] Care Team Providers Name Role Phone Unavailable Primary Care Provider Unavailable Encounter Details Date Type Department Care Team Description 06/15/2021 Orders Only Division of Nephrology and Jenna Neri A PRN, Hypertension, [employer] C[facility]P. [place], in [place], [facility] [address] [place], [place] [address] [facility] [address] [place] [address] [phone] Social History Tobacco Use Types Packs/Day Years [...]
--- OUTSIDE RECORDS SUMMARY | 2021-11-16 12:43 | XMS_ITS | Encounter Summary ---
:1945 Author Organization [facility] Address [address] [place] [address] Care Team Providers Name Role Phone Unavailable Primary Care Provider Unavailable Encounter Details Date Type Department Care Team Description 06/07/2021 Documentation Division of Nephrology and Ludmila Reyes R.N. Hypertension in [place], [address] [place], [place] [address] [facility] [address] [place] [address] [phone] Social History Tobacco Use Types Packs/Day Years Used Date Smoking Tobacco: Never Assessed Sex Assigned at Date Recorded Not on file documented as of this encounter Progress Notes Ludmila Reyes R.N. - 06/07/2021 2:[address] Weeks CHIEF COMPLAINT/PURPOSE OF VISIT REASON FOR REFERRAL: Tunneled dialysis catheter placement HISTORY OF PRESENT ILLNESS PERTINENT PROCEDURAL HISTORY: Patient referred for tunneled dialysis catheter placement. She is being referred due to needing to start dialysis. DIABETES: Diet Controlled ANTICOAGULATION: Patient and her daughter report that she is not on blood thinners. LABORATORY RESULTS: Current Labs being faxed to us on 06/08/21 by daughter. IMPRESSION/REPORT/PLAN SPECIFIC PATIENT INSTRUCTIONS: [facility] her [facility] Sunday[facility] at 9:30 am. You must have a special loan officer to drive you home due to the [...] your medicines that you take with you. If you take insulin please follow these instructions: N/A If you are on Coumadin or blood thinners, please follow these instructions: N/A Plan on spending about half to three fourths of the day in [place] for this procedure. There is generally some waiting involved prior to the procedure. Post Access Instructions: Dr. Weeks has been informed of the catheter placement date, he and his team are in communication with the patient regarding the date she is to start dialysis. Appointment scheduled via Interventional Radiology. MARKER documented in this encounter Plan of Treatment Scheduled Procedures Name Priority Associated Diagnoses Date/Time PLACEMENT ARTERIOVENOUS GRAFT UPPER Chronic Kidn ey Disease Stage 5 EXTREMITY Glomerular Filtration Rate Less Than 15 (HCC) documented as of this encounter Visit Diagnoses Not on filedocumented in this encounter
--- OUTSIDE RECORDS SUMMARY | 2021-11-16 12:44 | XMS_ITS | Encounter Summary ---
:1945 Author Organization [facility] Address [facility] [place] [address] Care Team Providers Name Role Phone Eusebia Whitaker Primary Care Provider Encounter Details Date Type Department Care Team Description 10/01/2019 Hospital Encounter M [facility] Non-Fv Cred entialed Provider, Radiology [facility] [address] Audi Maurer MD [employer] [address] [place] [address] [address] [address] Social History Tobacco Use Types Packs/Day Years Used Date Never Assessed Sex Assigned at Date Recorded Not on file COVID-19 Exposure Response Date Recorded In the last month, have you been in contact with No / Unsure 10/01/2019 8:02 AM CDT someone who was confirmed or suspected to have Coronavirus / COVID-19? documented as of this encounter Last Filed Vital Signs Vital Sign Reading Time Taken Comments Blood Pressure 219/86 10/01/2019 9:39 AM CDT Pulse 56 10/01/2019 9:39 AM CDT Temperature 36.6 ??C (97.9 ??F) 10/01/2019 8:16 AM CDT Respiratory Rate 18 10/01/2019 9:39 AM CDT Oxygen Saturation 97% 10/01/2019 8:16 AM CDT Inhaled Oxygen Concentration - - Weight - - Height 160 cm (5' 3) 10/01/2019 8:16 AM CDT Body Mass Index - - documented in this encounter Discharge Instructions Discharge Yoan Wilson RN - 10/01/2019 10:23 AM CDT Renal Biopsy Discharge Instructions After you go home: ??? You may resume your normal diet ??? Have an adult stay with you for 6 hours if you received sedation For 24 hours - due to the sedation you received: ??? Relax and take it easy ??? Do NOT make any important or legal decisions ??? Do NOT drive or operate machines at home or at work ??? Do NOT drink alcohol Care of Puncture Site: ??? For the first 48 hrs, check your puncture site every couple hours while you are awake ??? You may remove/change the bandaid tomorrow ??? You may shower tomorrow ??? No tub baths, whirlpools or swimming until your puncture site has fully healed Activity ??? You may go back to normal activity in 24 hours ??? Wait 48 hours before lifting, straining, exercise or other strenuous activity Medicines: ??? You may resume all medications ??? Resume your Warfarin/Coumadin at your regular dose today. Follow up with your provider to have your INR rechecked ??? Resume your Platelet Inhibitors and Aspirin tomorrow at your regular dose ??? For minor pain, you may take Acetaminophen (Tylenol) or Ibuprofen (Advil) Call the provider who ordered this test if: ??? Increased pain or a large or growing hard lump around the site ??? Blood or fluid is draining from the site ??? The site is red, swollen, hot or tender ??? Chills or a fever greater than 101 F (38 C) ??? Pain that is getting worse ??? Any questions or concerns Call 911 or go to the Emergency Room if: ??? Severe pain or trouble breathing ??? Bleeding that you cannot control If you have questions call: [facility] Radiology Dept @ [phone] 1. Cancel bx today and reschedule once the BP is better controlled. 2. Start amlodipine 5 mg bid. We will call it in to her pharmacy. 3. Continue carvedilol 12.5 mg bid and furos 20 mg bid. 4. Pt will call ARI Shaffer in our office later today c the home BP reading. 5. F/u c Dr. Maurer. documented in this encounter Medications at Time of Discharge Medication Sig Dispensed Refills Start Date End Date acetaminophen (TYLENOL) 500 Take 500-1,000 mg 0 MG tablet by mouth every 6 hours as needed for mild pain carvedilol (COREG) 12.5 MG Take 12.5 mg by 0 tablet mouth 2 times daily (with meals) Cholecalciferol (VITAMIN D3) Take 50 mcg by 0 50 MCG (2000 UT) CAPS mouth daily co-enzyme Q-10 50 MG CAPS Take 50 mg by mouth 0 furosemide (LASIX) 20 MG Take 20 mg by mouth 0 tablet 2 times daily Multiple Vitamins-Minerals Take 1 tablet by 0 (MULTIVITAMIN ADULT PO) mouth daily omeprazole (PRILOSEC) 20 MG Take 20 mg by mouth [address] DR capsule daily documented as of this encounter Progress Notes Yoan Noyola RN - 10/01/2019 10:27 AM CDT Care Suites Discharge Summary Discharge Criteria: Discharge Criteria met per MD orders: Yes. Vital signs stable. Pt demonstrates ability to ambulate safely: Yes. (See discharge questionnaire for additional information) Discharge instructions & education: Discharge instructions reviewed with patient and DTR. Patient verbalizes understanding. Additional patient education provided: 1. Cancel bx today and reschedule once the BP is better controlled. 2. Start amlodipine 5 mg bid. We will call it in to her pharmacy. 3. Continue carvedilol 12.5 mg bid and furos 20 mg bid. 4. Pt will call ARI Shaffer in our office later today c the home BP reading. 5. F/u c Dr. Maurer. . Medications: Patient will be discharging on new medications- Yes. Patient verbalizes reason for use, start date,and side effects, yes. Pt to order picker new medication at her pharmacy today. Items returned to patient: Home and hospital acquired medications returned to patient NA Listed belongings gathered and returned to patient: Yes Patient discharged to home with DTR. Yoan Whitehead. ARI Noyola Adrian Kern MD - 10/01/2019 10:01 AM CDT Pt's BP is too high to safely do a bx. She didn't sleep well last night bc she was nervous re the procedure, and was dizzy last night. Today, she denies any d/l/black/vision changes/focal neuro sx. No cp/sob/abd pain. She has back pain for which she takes aceta. AF-219/86-56 (p taking carvedilol and clonidine 0.2 mg x 1) Reg, pedro c 1/6 m CTA B No ble edema 1. Cancel bx today and reschedule once the BP is better controlled. 2. Start amlodipine 5 mg bid. We will call it in to her pharmacy. 3. Continue carvedilol 12.5 mg bid and furos 20 mg bid. 4. Pt will call ARI Shaffer in our office later today c the home BP reading. 5. F/u c Dr. Maurer. Yoan Noyola RN - 10/01/2019 8:16 AM CDT Care Suites Admission Nursing Note Patient Information Name: Courtney Berry Age: [age] year old Reason for admission: renal biopsy Care Suites arrival time: 0900 Patient Admission/Assessment Pre-procedure assessment complete: Yes If abnormal assessment/labs, provider notified: N/A NPO: Yes Medications held per instructions/orders: Yes Consent: obtained If applicable, test status: n/a Patient oriented to room: Yes Education/questions answered: Yes Plan/other: proceed Discharge Planning Accompanied by: JE grover Overnight post sedation caregiver: DTR Discharge location: home PATIENT/VISITOR WELLNESS SCREENING Step 1 Patient Screening 1. In the last month, have you been in contact with someone who was confirmed or suspected to have Coronavirus/COVID-19? No 2. Do you have the following symptoms? Fever/Chills? No Cough? No Shortness of breath? No New loss of taste or smell? No Sore throat? No Muscle or body aches? No Headaches? No Fatigue? No Vomiting or diarrhea? No Step 2 Visitor Screening 1. Name of Visitor (1 visitor per patient): yanet WOOTEN 2. In the last month, have you been in contact with someone who was confirmed or suspected to have Coronavirus/COVID-19? No 3. Do you have the following symptoms? Fever/Chills? No Cough? No Shortness of breath? No Skin rash? No Loss of taste or smell? No Sore throat? No Runny or stuffy nose? No Muscle or body aches? No Headaches? No Fatigue? No Vomiting or diarrhea? No If the visitor has positive symptoms, notify forklift supervisor/manger Per policy, the visitor will need to leave the facility Step 3 Refer to logic grid below for actions NO SYMPTOM(S) ACTIONS: 1. Standard rooming process 2. Provider to assess per normal protocol 3. Implement precautions as needed and per guidelines POSITIVE SYMPTOM(S) If positive for ANY of the following symptoms: fever, cough, shortness of breath, rash ACTION: 1. Continue to have the patient wear a mask 2. Room patient as soon as possible 3. Don appropriate PPE when entering room 4. Provider evaluation Yoan Noyola RN documented in this encounter Plan of Treatment Not on filedocumented as of this encounter Procedures Procedure Name Priority Date/Time Associated Diagnosis Comme nts INR STAT 10/01/2019 9:19 AM Results f or this CDT procedure are i n the results section. PLATELET FUNCTION STAT 10/01/2019 9:19 AM Resu lts for this CLOSURE WITH REFLEX CDT procedur e are in the results section. BASIC METABOLIC STAT 10/01/2019 9:19 AM Result s for this PANEL CDT procedure are i n the results section. CBC WITH PLATELETS STAT 10/01/2019 9:19 AM Res ults for this CDT procedure are i n the results section. documented in this encounter Results INR (10/01/2019 9:19 AM CDT) P athologist Signature INR 1.10 0.86 - 1.14 10/01/2019 [place] 9:36 AM CDT [facility] Specimen Anatomical Collection Method Collection Time Receive d Time (Source) Location / / Volume Laterality Blood specimen 10/01/2019 9:19 AM 020 9:20 (specimen) CDT AM CDT Adrian Kern MD LAB - BLOOD ORDERABLES Performing Organization Address City/State/ZIP Code Phon e Number M [facility] [address] [phone] [facility] [address] [address], [place] [phone] (ABNORMAL) Basic metabolic panel (10/01/2019 9:19 AM CDT) Analysis Performed At [facility] Time Signature Sodium 138 133 - 144 10/01/2019 [place] mmol/L 9:41 AM [facility] Potassium 3.5 3.4 - 5.3 10/01/2019 [place] mmol/L 9:41 AM [facility] Chloride 106 94 - 109 10/01/2019 [place] mmol/L 9:41 AM [facility] Carbon Dioxide 26 20 - 32 10/01/2019 [place] mmol/L 9:51 AM [facility] Anion Gap 6 3 - 14 10/01/2019 [place] mmol/L 9:51 AM [facility] Glucose 102 (H) 70 - 99 10/01/2019 [place] mg/dL 9:51 AM [facility] Urea Nitrogen 35 (H) 7 - 30 10/01/2019 [place] mg/dL 9:51 AM [facility] Creatinine 2.79 (H) 0.52 - 10/01/2019 [place] 1.04 mg/dL 9:51 AM [facility] GFR Estimate 16 (L) >60 10/01/2019 [place] mL/min/{1. 9:51 AM [facility] 73_m2} [facility] Comment: Non GFR Calc Starting 03/26/2018, serum creatinine ba sed estimated GFR (eGFR) will be calculated using the Chronic Kidney Dise [facility] Epidemiology Collaboration (CKD-EPI) equation. GFR Estimate If 18 (L) >60 mL/min/{1.73_m2} 10/01/2019 9: 51 AM [facility] Comment: GFR Calc Starting 03/26/2018, serum creatinine ba sed estimated GFR (eGFR) will be calculated using the Chronic Kidney Dise [place] Epidemiology Collaboration (CKD-EPI) equation. Calcium 8.9 8.5 - 10.1 mg/dL 10/01/2019 9:[address] [facility] Specimen Anatomical Collection Method Collection Time Receive d Time (Source) Location / / Volume Laterality Blood specimen 10/01/2019 9:19 AM 020 9:20 (specimen) CDT AM CDT Adrian Kern MD LAB - BLOOD ORDERABLES Performing Organization Address City/State/ZIP Code Phon e Number [facility] [address] [place] [address] [facility] [address] [place] [address], [place] [phone] Platelet function closure with reflex (10/01/2019 9:19 AM CDT) P athologist Signature PLT Funct 149 <170 sec 10/01/2019 [place] COL/EPI 10:13 AM CDT [facility] Specimen Anatomical Collection Method Collection Time Receive d Time (Source) Location / / Volume Laterality Blood specimen 10/01/2019 9:19 AM 020 9:20 (specimen) CDT AM CDT Adrian Kern MD LAB - BLOOD ORDERABLES Performing Organization Address City/State/ZIP Code Phon e Number [facility] [address] [place] [address] [phone] [facility] [address] [place] [address], [place] [phone] (ABNORMAL) CBC with platelets (10/01/2019 9:19 AM CDT) Analysis Performed At Patho logist Time Signature WBC 5.3 4.0 - 11.0 10/01/2019 [place] 10e9/L 9:26 AM [facility] RBC Count 3.58 (L) 3.8 - 5.2 10/01/2019 [place] 10e12/L 9:26 AM [facility] Hemoglobin 10.2 (L) 11.7 - 10/01/2019 [place] 15.7 g/dL 9:26 AM [facility] Hematocrit 30.8 (L) 35.0 - 10/01/2019 [place] 47.0 % 9:26 AM T [facility] MCV 86 78 - 100 10/01/2019 [place] fl 9:26 AM T [facility] MCH 28.5 26.5 - 10/01/2019 [place] 33.0 pg 9:26 AM [facility] MCHC 33.1 31.5 - 10/01/2019 [place] 36.5 g/dL 9:26 AM [facility] RDW 14.5 10.0 - 10/01/2019 [place] 15.0 % 9:26 AM [facility] Platelet Count 170 150 - 450 10/01/2019 [place] 10e9/L 9:26 AM [facility] Specimen Anatomical Collection Method Collection Time Receive d Time (Source) Location / / Volume Laterality Blood specimen 10/01/2019 9:19 AM 020 9:20 (specimen) CDT AM CDT Adrian Kern MD LAB - BLOOD ORDERABLES Performing Organization Address City/State/ZIP Code Phon e Number [facility] [address] [phone] [facility] [address] [address], [facility] [phone] documented in this encounter Visit Diagnoses Not on filedocumented in this encounter Administered Medications Inactive Administered Medications - up to 3 most recent administrations Medication Order MAR Action Action Date Dose Rate Site cloNIDine (CATAPRES) tablet 0.2 mg Given 10/01/2019 9:02 AM CDT 0.2 mg 0.2 mg, Oral, ONCE, On Sun10/01/19 at 0845, For 1 dose documented in this encounter Active and Recently Administered Medications Times are shown in CDT. Scheduled Medication Order 09/29/2019 09/30/2019 10/01/2019 cloNIDine (CATAPRES) tablet 0.2 mg (COMPLETED) 901 (Given - Provider: Yoan Noyola RN) 0.2 mg, Oral, ONCE, Sun10/01/19 at 0845, For 1 dose documented in this encounter Care Teams Cardiopulmonary Specialist Relationship Specialty Start Date End Date Eusebia Whitaker PCP - General Family Practice 09/25/19 [facility] [address] [place] [address] documented as of this encounter
--- OUTSIDE RECORDS SUMMARY | 2021-11-16 12:44 | XMS_ITS | Encounter Summary ---
:1945 Author Organization [facility] Address [address] [place] [address] Care Team Providers Name Role Phone Unavailable Primary Care Provider Unavailable Reason for Visit Appointment Request (Routine) - Closed Specialty Diagnoses / Procedures Referred By Contact Refer red To Contact Nephrology and Hypertension Referral ID Status Reason Start Date Expiration Date Visits Requ ested Visits Authorized [id number] Closed 06/17/2020 06/17/2021 1 1 Encounter Details Date Type Department Care Team Description 08/02/2020 External Outreach Division of Wanda Weeksey Disease Stage 5 Glomerular Filtration Rate Less Than 15 (HCC) (Primary Dx); Nephrology and Randal Whitehaed Jr., Hypertension And Chronic Kidney Disease Stage 5 (HCC); Hypertension in D.O. Anemia Of Chronic Renal Disease; [place], [place] [address] [facility] Osteodystrophy Renal; [address] [place], [place] Diabetes Mellitus Type 2 (HC C); [place] [address] Apnea Sleep Obstructive; [address] Proteinuria Social History Tobacco Use Types Packs/Day Years Used Date Smoking Tobacco: Never Assessed Sex Assigned at Date Recorded Not on file documented as of this encounter Progress Notes Randal Weeks Jr., D.O. - 08/02/2020 3:00 PM CDT Please see scanned in note under document viewer tab for the [facility] [place] outreach visit from this date. documented in [...] Mellitus Type 2 (HCC) Apnea Sleep Obstructive Proteinuria documented in this encounter
--- OUTSIDE RECORDS SUMMARY | 2021-11-16 12:44 | XMS_ITS | Encounter Summary ---
:1945 Author Organization [facility] Address [address] [place] [address] Care Team Providers Name Role Phone Unavailable Primary Care Provider Unavailable Reason for Visit Appointment Request (Routine) - Closed Specialty Diagnoses / Procedures Referred By Contact Refer red To Contact Nephrology and Hypertension Referral ID Status Reason Start Date Expiration Date Visits Requ ested Visits Authorized [id number] Closed 02/26/2020 02/25/2021 1 1 Encounter Details Date Type Department Care Team Description 03/22/2020 External Outreach Division of Wanda Weeks Ki d[place] Disease Stage 5 Glomerular Filtration Rate Less Than 15 (HCC) (Primary Dx); Nephrology and Randal Whitehead Jr., Hypertension And Chronic Kidney Disease Stage 5 (HCC); Hypertension in D.O. Anemia Of Chronic Renal Disease; [place], [place] [address] [facility] Osteodystrophy Renal; [address] [place], [place] Diabetes Mellitus Type 2 (HC C); [place] [address] Proteinuria; [address] Chronic Right Heart Failure (HCC) Social History Tobacco Use Types Packs/Day Years Used Date Smoking Tobacco: Never Assessed Sex Assigned at Date Recorded Not on file documented as of this encounter Progress Notes Randal Weeks Jr., D.O. - 03/22/2020 3:30 PM CST Please see scanned in note under document viewer tab for the [facility] [place] outreach visit from this date. 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
--- OUTSIDE RECORDS SUMMARY | 2021-11-16 12:44 | XMS_ITS | Encounter Summary ---
:1945 Author Organization [facility] Address [address] [place] [address] Care Team Providers Name Role Phone Unavailable Primary Care Provider Unavailable Reason for Visit Appointment Request (Routine) - Closed Specialty Diagnoses / Procedures Referred By Contact Refer red To Contact Nephrology and Hypertension Referral ID Status Reason Start Date Expiration Date Visits Requ ested Visits Authorized [id number] Closed 06/03/2020 06/03/2021 1 1 Encounter Details Date Type Department Care Team Description 06/09/2020 External Outreach Division of Wanda Weeksey Disease Stage 5 Glomerular Filtration Rate Less Than 15 (HCC) (Primary Dx); Nephrology and Randal Whitehead Jr., Hypertension And Chronic Kidney Disease Stage 5 (HCC); Hypertension in D.O. Anemia Of Chronic Renal Disease; [place], [place] [address] [facility] Osteodystrophy Renal; [address] [place], [place] Diabetes Mellitus Type 2 (HC C); [place] [address] Infection Urinary Tract [id number] [phone] Social History Tobacco Use Types Packs/Day Years Used Date Smoking Tobacco: Never Assessed Sex Assigned at Date Recorded Not on file documented as of this encounter Progress Notes Randal Weeks Jr., D.O. - 06/09/2020 3:00 PM CST Please see scanned in note under document viewer tab for the [facility] [place] outreach visit from this date. 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
--- OUTSIDE RECORDS SUMMARY | 2021-11-16 12:44 | XMS_ITS | Encounter Summary ---
:1945 Author Organization [facility] Address [address] [place] [address] Care Team Providers Name Role Phone Unavailable Primary Care Provider Unavailable Reason for Visit Appointment Request (Routine) - Closed Specialty Diagnoses / Procedures Referred By Contact Refer red To Contact Nephrology and Hypertension Referral ID Status Reason Start Date Expiration Date Visits Requ ested Visits Authorized [id number] Closed 01/15/2020 01/14/2021 1 1 Encounter Details Date Type Department Care Team Description 01/20/2020 External Outreach Division of Wanda Weeks dney Disease Stage 4 Glomerular Filtration Rate 15-29 (HCC) (Primary Dx); Nephrology and Randal Whitehead Jr., Hypertension And Chronic Kidney Disease Stage 4 (HCC); Hypertension in D.O. Proteinuria; [place], [place] [address] [facility] Diabetes Mellitus Type 2 (HCC); [address] [place], [place] Chronic Right Heart Failure (HCC) [place] [phone] [phone] Social History Tobacco Use Types Packs/Day Years Used Date Smoking Tobacco: Never Assessed Sex Assigned at Date Recorded Not on file documented as of this encounter Progress Notes Randal Weeks Jr., D.O. - 01/20/2020 3:00 PM CDT Please see scanned in note under document viewer tab for the [facility] [place] outreach visit from this date. documented in this encounter Plan of Treatment Scheduled Procedures Name Priority Associated Diagnoses Date/Time PLACEMENT ARTERIOVENOUS GRAFT UPPER Chronic Kidn ey Disease Stage 5 EXTREMITY Glomerular Filtration Rate Less Than 15 (HCC) documented as of this encounter Visit Diagnoses Diagnosis Chronic Kidney Disease Stage 4 Glomerula r Filtration Rate 15-29 (HCC) - Primary Hypertension And Chronic Kidney Disease Stage 4 (HCC) Proteinuria Diabetes Mellitus Type 2 (HCC) Chronic Right Heart Failure (HCC) documented in this encounter
--- OUTSIDE RECORDS SUMMARY | 2021-11-16 12:44 | XMS_ITS | Encounter Summary ---
:1945 Author Organization [facility] Address [address] [place] [address] Care Team Providers Name Role Phone Unavailable Primary Care Provider Unavailable Reason for Visit Appointment Request (Routine) - Closed Specialty Diagnoses / Procedures Referred By Contact Refer red To Contact Nephrology and Hypertension Referral ID Status Reason Start Date Expiration Date Visits Requ ested Visits Authorized [id number] Closed 08/18/2020 08/18/2021 1 1 Encounter Details Date Type Department Care Team Description 09/08/2020 External Outreach Division of Wanda Weeks Ki dney Disease Stage 5 Glomerular Filtration Rate Less Than 15 (HCC) (Primary Dx); Nephrology and Randal Whitehead Jr., Hypertension And Chronic Kidney Disease Stage 5 (HCC); Hypertension in D.O. Anemia Of Chronic Renal Disease; [place], [place] [address] [facility] Osteodystrophy Renal; [address] [place], [place] Diabetes Mellitus Type 2 (HC C); [place] [address] Chronic Right Heart Failure (HCC); [id number] Proteinuria Social History Tobacco Use Types Packs/Day Years Used Date Smoking Tobacco: Never Assessed Sex Assigned at Date Recorded Not on file documented as of this encounter Progress Notes Randal Weeks Jr., D.O. - 09/08/2020 4:30 PM CDT Please see scanned in note under document viewer tab for the [facility] [place] outreach visit from this date. 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
--- OUTSIDE RECORDS SUMMARY | 2021-11-16 12:44 | XMS_ITS | Encounter Summary ---
:1945 Author Organization [facility] Address [address] [place] [address] Care Team Providers Name Role Phone Unavailable Primary Care Provider Unavailable Encounter Details Date Type Department Care Team Description 06/10/2020 Orders Only Division of Nephrology and Shlomo Weeks Hypertension in [place], ., [place]O. [place] [address] [facility] [address] [place] [address] [phone] (Wo rk) Social History Tobacco Use Types [...]
--- OUTSIDE RECORDS SUMMARY | 2021-11-16 12:44 | XMS_ITS | Clinical Summary ---
:1945 Author Organization [facility] Address [address] [place] [address] Care Team Providers Name Role Phone Eusebia Whitaker Primary Care Provider Allergies No known active allergies Medications Medication Sig Dispensed Refills Start Date End Date Status carvedilol (COREG) 12.5 Take 12.5 mg by 0 Active MG tablet mouth 2 times daily (with meals) furosemide (LASIX) 20 MG Take 20 mg by 0 Active tablet mouth 2 times daily Multiple Take 1 tablet 0 Active Vitamins-Minerals by mouth daily (MULTIVITAMIN ADULT PO) co-enzyme Q-10 50 MG CAPS Take 50 mg by 0 Active mouth omeprazole (PRILOSEC) 20 Take 20 mg by [address] capsule mouth daily acetaminophen (TYLENOL) Take 500-1,000 0 Active 500 MG tablet mg by mouth every 6 hours as needed for mild pain Cholecalciferol (VITAMIN Take 50 mcg by 0 Active D3) 50 MCG (2000 UT) CAPS mouth daily Social History Tobacco Use Types Packs/Day Years [...] AM CDT Body Mass Index - - Plan of Treatment Health Maintenance Due Date Last Done Comments ADVANCE CARE PLANNING 1945 ANNUAL REVIEW OF HM ORDERS 1945 DEXA 1945 COVID-19 Vaccine (#1) 1945 HEPATITIS C SCREENING 06/07/1961 DTAP/TDAP/TD IMMUNIZATION 06/07/1968 (1 - Tdap) LIPID 06/07/1988 FALL RISK ASSESSMENT 06/07/2008 MEDICARE ANNUAL WELLNESS 06/07/2008 VISIT ZOSTER IMMUNIZATION (2 of 11/17/2015 09/22/2015 3) PHQ-2 (once per calendar 04/09/2021 year) INFLUENZA VACCINE (#1) 2021 01/16/2019, 02/09/2012, 01/16/2011, Additional history exists Pneumococcal Vaccine: 65+ Completed 08/19/2015, 01/20/2010 Years HEPATITIS B IMMUNIZATION Aged Out No long er eligible based on patient 's age to complete this topic IPV IMMUNIZATION Aged Out No longer eligi ble based on patient 's age to complete this topic MENINGITIS IMMUNIZATION Aged Out No longe r eligible based on patient 's age to complete this topic Care Teams Deputy Chief Magistrate Relationship Specialty Start Date End Date Eusebia Whitaker PCP - General Family Practice 09/25/19 [facility] [address] [facility] [place] [address]
--- OUTSIDE RECORDS SUMMARY | 2021-11-16 12:44 | XMS_ITS | Encounter Summary ---
:1945 Author Organization [facility] Address [address] [place] [address] Care Team Providers Name Role Phone Unavailable Primary Care Provider Unavailable Reason for Visit Reason Comments UA positive for bacteria Encounter Details Date Type Department Care Team Description 11/08/2020 Clinical Division of [place], UA positive for Communication Nephrology and Randal Whitehead Jr., bacteria Hypertension in D.O. [place], [place] [address] [facility] [address] [place] [address] [phone] Social History Tobacco Use Types Packs/Day Years Used Date Smoking Tobacco: Never Assessed Sex Assigned at Date Recorded Not on file documented as of this encounter Miscellaneous Notes Telephone Encounter - Yanet Conteh - 11/08/2020 9:06 AM CDT Irma (patient's daughter) from the [facility] called. She saw the test results that came through on patient's UA, and it is 2 + for bacteria. She is wondering if you would like to do a urine culture. You are scheduled to see patient on Sunday, and Irma said you could contact her at the lab at [phone] to order that. She also thought it might speed things up in preparation for her mom's appointment with you on Sunday. Thanks documented in this encounter Plan of Treatment Scheduled Procedures Name Priority Associated Diagnoses Date/Time PLACEMENT ARTERIOVENOUS GRAFT UPPER Chronic Kidn ey Disease Stage 5 EXTREMITY Glomerular Filtration Rate Less Than 15 (HCC) documented as of this encounter Visit Diagnoses Not on filedocumented in this encounter
--- OUTSIDE RECORDS SUMMARY | 2021-11-16 12:44 | XMS_ITS | Encounter Summary ---
:1945 Author Organization [facility] Address [address] [place] [address] Care Team Providers Name Role Phone Unavailable Primary Care Provider Unavailable Reason for Visit Appointment Request (Routine) - Closed Specialty Diagnoses / Procedures Referred By Contact Refer red To Contact Nephrology and Hypertension Referral ID Status Reason Start Date Expiration Date Visits Requ ested Visits Authorized [id number] Closed 11/04/2020 11/04/2021 1 1 Encounter Details Date Type Department Care Team Description 11/10/2020 External Outreach Division of Wanda Weeksey Disease Stage 5 Glomerular Filtration Rate Less Than 15 (HCC) (Primary Dx); Nephrology and Randal Whitehead Jr., Hypertension And Chronic Kidney Disease Stage 5 (HCC); Hypertension in [place]. Anemia Of Chronic Renal Disease; [place], [place] [address] [facility] Osteodystrophy Renal; [address] [place], [place] Diabetes Mellitus Type 2 (HC C) [place] [phone] Social History Tobacco Use Types Packs/Day Years Used Date Smoking Tobacco: Never Assessed Sex Assigned at Date Recorded Not on file documented as of this encounter Progress Notes Randal Weeks Jr., D.O. - 11/10/2020 11:00 AM CDT Please see scanned in note under document viewer tab for the [facility] [place] outreach visit from this date. 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
--- OUTSIDE RECORDS SUMMARY | 2021-11-16 12:44 | XMS_ITS | Encounter Summary ---
:1945 Author Organization [facility] Address [address] [place] [address] Care Team Providers Name Role Phone Unavailable Primary Care Provider Unavailable Encounter Details Date Type Department Care Team Description 07/22/2020 Orders Only Division of Nephrology and Shlomo Weeks Hypertension in [place], ., D.O. [place] [address] [facility] [address] [place] [address] [phone] (Wo rk) Social History Tobacco Use Types [...]
--- OUTSIDE RECORDS SUMMARY | 2021-11-16 12:44 | XMS_ITS | Encounter Summary ---
:1945 Author Organization [place] Address [facility] [place] [address] Care Team Providers Name Role Phone Eusebia Whitaker Primary Care Provider Encounter Details Date Type Department Care Team Description 10/01/2019 Travel Social History Tobacco Use Types Packs/Day Years Used Date Never Assessed Sex Assigned at Date Recorded Not on file COVID-19 Exposure Response Date Recorded In the last month, have you been in contact with No / Unsure 10/01/2019 8:02 AM CDT someone who was confirmed or suspected to have Coronavirus / COVID-19? documented as of this encounter Plan of Treatment Not on filedocumented as of this encounter Visit Diagnoses Not on filedocumented in this encounter Care Teams Psychotherapist Counselor Relationship Specialty Start Date End Date Eusebia Whitaker PCP - General Family Practice 09/25/19 [facility] [address] [place] [address] documented as of this encounter
--- OUTSIDE RECORDS SUMMARY | 2021-11-16 12:44 | XMS_ITS | Encounter Summary ---
:1945 Author Organization [facility] Address [address] [place] [address] Care Team Providers Name Role Phone Unavailable Primary Care Provider Unavailable Reason for Visit Reason Comments steroid injection tomorrow Encounter Details Date Type Department Care Team Description 01/12/2020 Clinical Division of yolande Weeksi on Communication Nephrology and Randal Whitehead Jr., tomorrow Hypertension in [place]O. [place], [place] [address] [facility] [address] [place] [phone] Social History Tobacco Use Types Packs/Day Years Used Date Smoking Tobacco: Never Assessed Sex Assigned at Date Recorded Not on file documented as of this encounter Miscellaneous Notes Telephone Encounter - Yanet Conteh - 01/12/2020 10:41 AM CDT Patient's daughter, Irma, called. Patient is having a steroid injection in her back tomorrow, and Irma is wondering if that is ok for her to have given her recent diagnosis and all the medications she's on. Please call her at [phone]. Thanks documented in this encounter Plan of Treatment Scheduled Procedures Name Priority Associated Diagnoses Date/Time PLACEMENT ARTERIOVENOUS GRAFT UPPER Chronic Kidn ey Disease Stage 5 EXTREMITY Glomerular Filtration Rate Less Than 15 (HCC) documented as of this encounter Visit Diagnoses Not on filedocumented in this encounter
--- OUTSIDE RECORDS SUMMARY | 2021-11-16 12:44 | XMS_ITS | Encounter Summary ---
:1945 Author Organization [facility] Address [facility] [place] [address] Care Team Providers Name Role Phone Eusebia Whitaker Primary Care Provider Encounter Details Date Type Department Care Team Description 07/17/2020 Travel Social History Tobacco Use Types Packs/Day Years Used Date Never Assessed Sex Assigned at Date Recorded Not on file COVID-19 Exposure Response Date Recorded In the last month, have you been in contact with No / Unsure 07/17/2020 7:29 PM CDT someone who was confirmed or suspected to have Coronavirus / COVID-19? documented as of this encounter Plan of Treatment Not on filedocumented as of this encounter Visit Diagnoses Not on filedocumented in this encounter Care Teams Radiology Rn Relationship Specialty Start Date End Date Eusebia Whitaker PCP - General Family Practice 09/25/19 [facility] [address] [place] [address] documented as of this encounter
--- OUTSIDE RECORDS SUMMARY | 2021-11-16 12:44 | XMS_ITS | Encounter Summary ---
:1945 Author Organization [facility] Address [address] [place] [address] Care Team Providers Name Role Phone Unavailable Primary Care Provider Unavailable Reason for Visit Appointment Request (Routine) - Closed Specialty Diagnoses / Procedures Referred By Contact Refer red To Contact Nephrology and Eusebia Whitaker M.D. Hypertension [address] [place] [address] Referral ID Status Reason Start Date Expiration Date Visits Requ ested Visits Authorized [id number] Closed 12/25/2019 12/24/2020 1 1 Encounter Details Date Type Department Care Team Description 01/07/2020 External Outreach Division of Reina Weeks And Chronic Kidney Disease Stage 4 (HCC) (Primary Dx); Nephrology and Randal Whitehead Jr., Chronic Kidn ey Disease Stage 4 Glomerular Filtration Rate 15-29 (HCC); Hypertension in [place]. Anemia Of Chronic Renal Disease; [place], [place] [address] [facility] Osteodystrophy Renal; [address] [place], [place] Diabetes Mellitus Type 2 (HC C); [place] [address] Chronic Right Heart Failure (HCC); [address] Proteinuria Social History Tobacco Use Types Packs/Day Years Used Date Smoking Tobacco: Never Assessed Sex Assigned at Date Recorded Not on file documented as of this encounter Consult Notes Randal Weeks Jr., D.O. - 01/07/2020 11:00 AM CDT Please see scanned in note under document viewer tab for the [facility] [place] outreach visit from this date. 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
--- OUTSIDE RECORDS SUMMARY | 2021-11-16 12:44 | XMS_ITS | Encounter Summary ---
:1945 Author Organization [facility] Address [address] [place] [address] Care Team Providers Name Role Phone Unavailable Primary Care Provider Unavailable Encounter Details Date Type Department Care Team Description 07/22/2020 Clinical Communication Division of Nephrology Randal Weeks and Hypertension odilia Whitehead Jr., D.O. [address] [place] [address] [phone] Social History Tobacco Use Types Packs/Day Years Used Date Smoking Tobacco: Never Assessed Sex Assigned at Date Recorded Not on file documented as of this encounter Miscellaneous Notes Telephone Encounter - Randal Weeks Jr., D.O. - 07/22/2020 5:43 PM CDT Email documentation == See the [place] [facility] documentation. Thanks Angela can you call them as below--I???ll send in the RX Randal Weeks Jr., D.O. [facility] Division of Nephrology and Hypertension port drier [facility] [place]: [phone] [email or web address] [address] [place] [address] [email or web address] From: Rachel Herr) - [facility] [email or web address]> Sent: July 10:11 AM To: Randal Weeks Jr., D.O. <[email or web address]> Subject: [EXTERNAL] Jael Berry (41) Hi - patient's family (particularly her niece, Warren, who is taking care of her currently) has concerns. 1) reports bp's 193/93 and 202/93 taken this morning. pulse is 60-64. Can we have her come in and check the BP please? 2) questions what are they supposed to do with pt's lasix rx? jael currently takes 20 mg AM and 20mg PM. Inquiring if you think anything medicine-ferrell needs to be altered at this time. If there is any swelling- 40 mg in am and 20 mg in PM They should continue on hydralazine 75 mg 3 times per day, carvedilol 37.5 mg bid, and we can add IMDUR 30 mg per day--I???ll send in. 3) reports current weight is 185 # this is lower than last weight 4) patient has c/o pulling of her chest intermittently, denies difficulty breathing. patient is currently taking carvedilol 37.5 mg BID Not OK, but if worse she must go to ER--maybe the Imdur will help patient is scheduled for follow up with you at [facility] 08/02. ~Angela documented in this encounter Plan of Treatment Scheduled Procedures Name Priority Associated Diagnoses Date/Time PLACEMENT ARTERIOVENOUS GRAFT UPPER Chronic Kidn ey Disease Stage 5 EXTREMITY Glomerular Filtration Rate Less Than 15 (HCC) documented as of this encounter Visit Diagnoses Not on filedocumented in this encounter
--- OUTSIDE RECORDS SUMMARY | 2021-11-16 12:44 | XMS_ITS | Encounter Summary ---
:1945 Author Organization [facility] Address [address] [place] [address] Care Team Providers Name Role Phone Unavailable Primary Care Provider Unavailable Reason for Visit Appointment Request (Routine) - Closed Specialty Diagnoses / Procedures Referred By Contact Refer red To Contact Nephrology and Hypertension Referral ID Status Reason Start Date Expiration Date Visits Requ ested Visits Authorized [id number] Closed 02/11/2020 02/10/2021 1 1 Encounter Details Date Type Department Care Team Description 02/18/2020 External Outreach Division of Wanda Weeks Ki dney Disease Stage 5 Glomerular Filtration Rate Less Than 15 (HCC) (Primary Dx); Nephrology and Randal Whitehead Jr., Hypertension And Chronic Kidney Disease Stage 5 (HCC); Hypertension in [place].O. Anemia Of Chronic Renal Disease; [place], [place] [address] [facility] Osteodystrophy Renal; [address] [place], [place] Diabetes Mellitus Type 2 (HC C); [place] [address] Chronic Right Heart Failure (HCC); [id number] Proteinuria Social History Tobacco Use Types Packs/Day Years Used Date Smoking Tobacco: Never Assessed Sex Assigned at Date Recorded Not on file documented as of this encounter Progress Notes Randal Weeks Jr., D.O. - 02/18/2020 12:00 PM CST Please see scanned in note under document viewer tab for the [facility] [place] outreach visit from this date. NG CAR CONDUCTOR documented in this encounter Plan of Treatment [...]
--- OUTSIDE RECORDS SUMMARY | 2021-11-16 12:44 | XMS_ITS | Encounter Summary ---
:1945 Author Organization [facility] Address [address] [place] [address]. [place] [address] Care Team Providers Name Role Phone Eusebia Whitaker Primary Care Provider Reason for Visit Diagnostic Imaging Ultrasound (Routine) - Closed Specialty Diagnoses / Procedures Referred By Contact Refer red To Contact Diagnoses Chronic kidney disease, stage III (moderate) (H) Proteinuria, unspecified type Audi Maurer MD Procedures US Biopsy [facility] [address] [place] [address] Referral ID Status Reason Start Date Expiration Date Visits Requ ested Visits Authorized [id number] Closed 09/04/2019 09/03/2020 1 1 Encounter Details Date Type Department Care Team Description 10/01/2019 [facility] Audi Maurer MD [facility] [address] [facility] [address] [place] [id number] Chronic kidney disease, stage III (moder ate) (H); Encounter [facility] Imaging Non-Fv Credentialed Provider, Radiology Proteinuria, unspecified type [address] [place] [phone] Social History Tobacco Use Types Packs/Day Years Used Date Never Assessed Sex Assigned at Date Recorded Not on file COVID-19 Exposure Response Date Recorded In the last month, have you been in contact with No / Unsure 10/01/2019 8:02 AM CDT someone who was confirmed or suspected to have Coronavirus / COVID-19? documented as of this encounter Medications at [...] capsule daily documented as of this encounter Plan of Treatment Not on filedocumented as of this encounter Visit Diagnoses Diagnosis Chronic kidney disease, stage III (moder ate) (H) Chronic kidney disease, Stage III (moder ate) Proteinuria, unspecified type documented in this encounter Care Teams Information Security Manager Relationship Specialty Start Date End Date Eusebia Whitaker PCP - General Family Practice 09/25/19 [facility] [address] [place] [address] documented as of this encounter
--- OUTSIDE RECORDS SUMMARY | 2021-11-16 12:44 | XMS_ITS | Encounter Summary ---
:1945 Author Organization [facility] Address [address] [place] [address] Care Team Providers Name Role Phone Unavailable Primary Care Provider Unavailable Encounter Details Date Type Department Care Team Description 01/12/2020 Clinical Communication Division of Nephrology Randal Weeks and Hypertension odilia Whitehead Jr., D.O. [place], [place] [address] [facility] [address] [place] [address] [phone] Social History Tobacco Use Types Packs/Day Years Used Date Smoking Tobacco: Never Assessed Sex Assigned at Date Recorded Not on file documented as of this encounter Miscellaneous Notes Telephone Encounter - Randal Weeks Jr., D.O. - 01/12/2020 11:52 AM CDT Phone message I received a phone message request to contact the patient's daughter back immediately. This was in regards to her mother potentially receiving a steroid injection in her back. She does have a history of heart failure with preserved ejection fraction advanced CKD. Discussed that she had her mother should be quite careful with her sodium intake, continue to monitor her symptoms carefully and that she could use an extra dose of diuretics if necessary. documented in this encounter Plan of Treatment Scheduled Procedures Name Priority Associated Diagnoses Date/Time PLACEMENT ARTERIOVENOUS GRAFT UPPER Chronic Kidn ey Disease Stage 5 EXTREMITY Glomerular Filtration Rate Less Than 15 (HCC) documented as of this encounter Visit Diagnoses Not on filedocumented in this encounter
--- OUTSIDE RECORDS SUMMARY | 2021-11-16 12:45 | XMS_ITS | Encounter Summary ---
:1945 Author Organization [place] Address [facility] [place] [address] Care Team Providers Name Role Phone Eusebia Whitaker Primary Care Provider Encounter Details Date Type Department Care Team Description 09/29/2019 Travel Social History Tobacco Use Types Packs/Day Years Used Date Never Assessed Sex Assigned at Date Recorded Not on file COVID-19 Exposure Response Date Recorded In the last month, have you been in contact with No / Unsure 09/29/2019 3:49 PM CDT someone who was confirmed or suspected to have Coronavirus / COVID-19? documented as of this encounter Plan of Treatment Not on filedocumented as of this encounter Visit Diagnoses Not on filedocumented in this encounter Care Teams Sonar Watchstander Relationship Specialty Start Date End Date Eusebia Whitaker PCP - General Family Practice 09/25/19 [facility] [address] [place] [address] documented as of this encounter
--- OUTSIDE RECORDS SUMMARY | 2021-11-16 12:45 | XMS_ITS | Encounter Summary ---
:1945 Author Organization [place] Address [address] [facility] [place] [address] Care Team Providers Name Role Phone Eusebia Whitaker Primary Care Provider Encounter Details Date Type Department Care Team Description 09/04/2019 Medical Correspondence [facility] Scan, ORDER [employer] Non-Provider CONSULTANTS [facility] [address] [place] [address] Social History Tobacco Use Types Packs/Day Years [...] on filedocumented in this encounter Care Teams Tipple Greaser Relationship Specialty Start Date End Date Eusebia Whitaker PCP - General Family Practice 09/25/19 [facility] [address] [place] [address] documented as of this encounter
--- OUTSIDE RECORDS SUMMARY | 2021-11-16 12:45 | XMS_ITS | Encounter Summary ---
:1945 Author Organization [place] Address [address] [facility] [place] [address] Care Team Providers Name Role Phone Eusebia Whitaker Primary Care Provider Encounter Details Date Type Department Care Team Description 09/04/2019 Medical Correspondence [facility] Scan, US GUIDED RENAL Health Info Mgmt Non-Provider BIOPSY ORDSamy Morales Srvcs INTERMED [address] [facility] [place] [phone] Social History Tobacco Use Types Packs/Day [...] on filedocumented in this encounter Care Teams Metal Cleaner Relationship Specialty Start Date End Date Eusebia Whitaker PCP - General Family Practice 09/25/19 [facility] [address] [place] [address] documented as of this encounter
--- OUTSIDE RECORDS SUMMARY | 2021-11-16 12:45 | XMS_ITS | Encounter Summary ---
:1945 Author Organization [place] Address [facility] [place] [address] Care Team Providers Name Role Phone Eusebia Whitaker Primary Care Provider Reason for Visit Reason Onset Date Comments Covid 19 Testing 09/29/2019 Encounter Details Date Type Department Care Team Description 09/29/2019 [facility] Encounter for Urgent Care [facility] screening for other [address] [place] [address] [address] JACQUELINE [facility] [id number] Formerly named [facility] [phone] [place], [place] [id number] (Wo rk) Social History Tobacco Use Types Packs/Day Years Used Date Never Assessed Sex Assigned at Date Recorded Not on file COVID-19 Exposure Response Date Recorded In the last month, have you been in contact with No / Unsure 09/29/2019 3:49 PM CDT someone who was confirmed or suspected to have Coronavirus / COVID-19? documented as of this encounter Progress Notes Natacha Santos CMA - 09/29/2019 4:00 PM CDT COVID-19 PCR test completed. Patient handout For Patients Who Have Been Tested for Covid-19 (Coronavirus) was given to the patient, which includes test result notification process. documented in this encounter Plan of Treatment Not on filedocumented as of this encounter Procedures Procedure Name Priority Date/Time Associated Diagnosis Comme nts COVID-19 VIRUS Routine 09/29/2019 4:05 PM Encounter for Result s for this (CORONAVIRUS) BY CDT screening for other proc edure are in PCR viral diseases the results section. documented in this encounter Results Asymptomatic COVID-19 Virus (Coronavirus) by PCR (09/29/2019 4:05 PM CDT) [facility] Method Time Signature COVID-19 Nasopharyngeal 09/29/2019 [facility] Virus PCR to 4:10 PM CDT [facility] COVID-19 Not Detected 09/30/2019 [facility] Virus PCR to 1:10 PM CDT [facility] [place] Result CENTER LABORATORY Comment: Collection of multiple specimens from th e same patient may be necessary to detect the virus. The possibility of a f alse negative should be considered if the patient's recent exposure or clinica l presentation suggests 2019 nCOV infection and diagnostic tests for other causes of illness are negative. Repeat testing may be considered in this setting. Viral RNA was extracted via a validated method and subsequently underwent single step reverse transcriptase-real t yousuf polymerase chain reaction using primers to the CDC specified N1,N2 gene targets of CoV2 and human ISSUE CLERK as an internal control. A negative result does not rule out the presence of real-time PCR inhibitors in the specimen or COVID-19 RNA in marti ntrations below the limit of detection of the assay. The possibility of a fals e negative should be considered if the patients recent exposure or clinical pr esentation suggests COVID-19. Additional testing or repeat testing req uires consultation with the laboratory. Nasopharyngeal specimen is the preferred choice for swab-based SARS CoV2 testing. When collection of a nasopharyn geal swab is not possible the following are acceptable alternatives: an oropharyngeal (OP) specimen collected by a healthcare professional, or a nasal mid-turbinate (NMT) swab collected by a healthcare professional or by onsite self-collection (using a flocked tapered swab), or an anterior nares specimen collected by a healthcare profe ssional or by onsite self-collection (using a round foam swab). (Centers for Disease Control) Testing performed by [facility] [employer] [facility], Room 1-210, [address] [place] [address]. T his test was developed and its performance characteristics determined b y the [facility] [employer] [facility]. It has not been cleared or appr dony by the FDA. The laboratory is regulated under the Cl inical Laboratory Improvement Amendments of 1988 (CLIA-88) as qualifie d to perform high-complexity testing. This test is used for clinical purposes. It should not be regarded as investigational or for research. Specimen (Source) Anatomical Collection Method Collection Time Re ceived Time Location / / Volume Laterality Specimen from 09/29/2019 4:05 09/29/2019 nasopharyngeal PM CDT 4:10 PM CDT structure (specimen) Audi Maurer MD LAB - MICRO GENERAL ORDERABL ES Performing Organization Address City/State/[facility] Code Phon e Number [facility] [address] [place] [address] [phone] [facility] Room: [address] [address] [facility] documented in this encounter Visit Diagnoses Diagnosis Encounter for screening for other viral diseases documented in this encounter Care Teams Prompt Care Rn Relationship Specialty Start Date End Date Eusebia Whitaker PCP - General Family Practice 09/25/19 [facility] [address] [place] [address] documented as of this encounter
--- OUTSIDE RECORDS SUMMARY | 2021-11-16 12:45 | XMS_ITS | Encounter Summary ---
:1945 Author Organization [place] Address [address] [facility] [place] [address] Care Team Providers Name Role Phone Eusebia Whitaker Primary Care Provider Reason for Visit Reason Onset Date Comments Pt. Information/instruction 09/30/2019 Encounter Details Date Type Department Care Team Description 09/30/2019 Telephone [facility] Kaelyn Lopez, RN Pt. [facility] s Information/instruction [address] [place] [address] Social History Tobacco Use Types Packs/Day Years Used Date Never Assessed Sex Assigned at Date Recorded Not on file COVID-19 Exposure Response Date Recorded In the last month, have you been in contact with No / Unsure 09/30/2019 9:51 AM CDT someone who was confirmed or suspected to have Coronavirus / COVID-19? documented as of this encounter Miscellaneous Notes Telephone Encounter - Kaelyn Lopez RN - 09/30/2019 9:51 AM CDT Pre-Procedure Negative COVID Test Step 1 Patient Notification Patient notified of the negative COVID test result Step 2 Patient Information Verified the patient remains symptom free Patient informed to contact the ordering provider if any of the symptoms develop prior to the procedure Fever/Chills Cough Shortness of breath New loss of taste or smell Sore throat Muscle or body aches Headaches Fatigue Vomiting or diarrhea Step 3 Review Visitor Policy Patient informed of the updated visitor policy 1 visitor allowed per patient Visitor must screen negative for COVID symptoms Visitor must wear a mask Waiting rooms continue to be closed to visitors Kaelyn Lopez RN documented in this encounter Plan of Treatment Not on filedocumented as of this encounter Visit Diagnoses Not on filedocumented in this encounter Care Teams Lab Aide Relationship Specialty Start Date End Date Eusebia Whitaker PCP - General Family Practice 09/25/19 [facility] [address] [place] [address] documented as of this encounter
--- OUTSIDE RECORDS SUMMARY | 2021-11-16 12:45 | XMS_ITS | Encounter Summary ---
:1945 Author Organization [place] Address [facility] [place] [address] Care Team Providers Name Role Phone Eusebia Whitaker Primary Care Provider Encounter Details Date Type Department Care Team Description 09/30/2019 Travel Social History Tobacco Use Types Packs/Day [...] on filedocumented in this encounter Care Teams Test Pilot Relationship Specialty Start Date End Date Eusebia Whitaker PCP - General Family Practice 09/25/19 [facility] [address] [place] [address] documented as of this encounter
--- OUTSIDE RECORDS SUMMARY | 2021-11-16 12:45 | XMS_ITS | Encounter Summary ---
:1945 Author Organization [place] Address [facility] [place] [address] Care Team Providers Name Role Phone Unavailable Primary Care Provider Unavailable Encounter Details Date Type Department Care Team Description 09/04/2019 Orders Only [facility] Audi Maurer MD Encounter for Nephrology Clinic [facility] salima almazan for other [facility] viral diseases [address] [facility] [address] [place] (Primary Dx) [place], [place] [phone] [place], [place] [address] (Wo rk) Social History Tobacco Use Types Packs/Day Years Used Date Never Assessed Sex Assigned at Date Recorded Not on file documented as of this encounter Plan of Treatment Not on filedocumented as of this encounter Results Asymptomatic COVID-19 Virus (Coronavirus) by PCR (09/29/2019 4:05 PM CDT) [facility] Method Time Signature COVID-19 Nasopharyngeal 09/29/2019 [facility] Virus PCR to 4:10 PM CDT [facility] Source [facility] COVID-19 Not Detected 09/30/2019 [facility] Virus PCR to 1:10 PM CDT [facility] Result CENTER LABORATORY Comment: Collection of multiple [...] N1,N2 gene targets of CoV2 and human AIRPLANE COVERER as an internal control. A negative result [...] (Centers for Disease Control) Testing performed by [facility], Room 1-210, [address] [place] [address]. T his test was developed and its performance characteristics determined b y the [facility]. It has not been cleared or appr [...] MICRO GENERAL ORDERABL ES Performing Organization Address City/State/ZIP Code Phon e Number [address] [address] [facility] Room: 1-210 [facility] [address] [place], [place] [address] [place] documented in this encounter Visit Diagnoses Diagnosis Encounter for screening for other viral diseases - Primary documented in this encounter
== END 2021-11-03 10:42 | disposition home or self-care (01) ==
LOC: AMB 11-16 12:38
PROVIDERS: PCP Family Medicine; Visit Provider Family Medicine
DX: R55 Syncope and collapse (principal)
CPT/HCPCS: A0425; A0427

== ENCOUNTER 2021-11-03 10:59 | Emergency (ER) | payer MEDICARE, SELFPAY ==
[2021-11-03] VITALS (15 sets, daily range): BP systolic 153–196; BP diastolic 60–75; PULSE 55–63; RESP 12–21; TEMP 35.6–36.6; O2SAT 97–100
--- NOTE | 2021-11-03 11:12 | CRLHL7_ITS ---
For Patients: As a result of the Century Cures Act, medical imaging exams and procedure reports are released immediately into your electronic medical record. You may view this report before your referring provider. If you have questions, please contact your health care provider. INDICATION: Stroke symptoms. TECHNIQUE: CT head without contrast. COMPARISON: None. FINDINGS: CSF spaces: Within normal limits for age. Brain parenchyma and extra-axial spaces: The quintero-white differentiation is normal. No sign of mass, hemorrhage, or midline shift. No extra-axial fluid collection. Skull base and calvarium: The visualized paranasal sinuses and mastoid air cells demonstrate no acute or significant findings. The visualized orbits are grossly unremarkable. No skull fractures. IMPRESSION: Unremarkable noncontrast head CT. No sign of acute CVA or intracranial hemorrhage. Please note that all CT scans at this facility use dose modulation, iterative reconstruction, and/or weight-based dosing when appropriate to reduce radiation dose to as low as reasonably achievable. Dictated by Garfield Sauer MD @ 11/03/2021 11:19:58 AM (Electronically Signed)
[2021-11-03 11:53] LABS: Lactate* 1.3 mmol/L (0.5-1.9)
[2021-11-03 11:57] LABS: Basophils Absolute Auto 0.04 K/uL (0.00-0.30); Basophils Percent Auto 0.7 % (0.0-3.0); Eosinophils Absolute Auto 0.22 K/uL (0.00-0.50); Eosinophils Percent Auto 3.9 % (0.0-7.0); Hematocrit 40.9 % (33.0-51.0); Hemoglobin* 13.2 gm/dL (12.0-16.0); Immature Granulocytes Abs Auto 0.01 K/uL (0.00-0.30); Lymphocytes Absolute Auto 1.73 K/uL (0.90-2.90); Lymphocytes Percent Auto 30.7 % (20-44); Mean Corpuscular HGB Conc 32 gm/dL (32-36); Mean Corpuscular Hemoglobin 30 pg (26-34); Mean Corpuscular Volume 94 fL (80-100); Monocytes Percent Auto 7.5 % (0.0-11.0); Neutrophils Absolute Auto 3.21 K/uL (1.7-7.0); Platelet Count* 181 K/uL (140-440); RDW Coefficient of Variation % 13.4 % (11.5-15.5); Red Blood Count 4.37 m/uL (4.00-5.20); White Blood Count* 5.63 K/uL (4.50-11.00)
--- NOTE | 2021-11-03 12:05 | ED.GENADULT ---
HPI - General Adult General Date Seen: 11/03/21 Chief complaint: Neuro Symptoms/Altered Deficit Stated complaint: Possible stroke Time Seen by Provider: 11/03/21 11:14 Source: patient and EMS History of Present Illness HPI narrative: Patient is a 76-year-old woman who was at dialysis today. She was at the end of her run, reportedly 20 minutes left, when she had an unresponsive spell. According to EMS, she was unresponsive with her eyes closed but had a blood pressure and pulse. She was this way for 5-7 minutes, then she was noted to have her eyes open but was just staring off into space, still not responding. There is no reported seizure activity. By the time she got here, she was answering some questions but still not fully responsive. 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 Blood sugar was checked and was 106. She was transferred immediately to CT on arrival to the emergency department, I saw her briefly there and then spoke with her after CT, at which time she was alert and interactive. She denies any recent illness. She denies pain, specifically headache, chest or abdominal pain, back pain. She denies any recent vomiting or diarrhea. No fevers. She denies previous incidence like this. She denies any weakness or numbness, speech difficulties or other focal neurologic difficulties. She does remember going to dialysis. She does not remember this incident. She does not smoke or drink. Renal dialysis patient. Review of Systems Status of ROS: Reports: 10 or more systems reviewed and unremarkable except as noted in History and below [facility] Social History Smoking Status: Never smoker Do you use any of these nicotine containing products: None Second hand tobacco smoke exposure: No How often do you have a drink containing alcohol: monthly or less How many standard drinks containing alcohol do you have on a typical day: 1 or 2 How often do you have six or more drinks on one occasion: Never AUDIT-C Alcohol total score: 1 Non-prescribed substance use: denies use service: No Exam Narrative: Exam Narrative: Vital signs as noted above. In general, an alert, nontoxic elderly woman. Head: Normocephalic, atraumatic. Eyes: Pupils are equal reactive. Extraocular movements are full. Conjunctivae are normal. ENT: Mucous membranes are moist. Throat is normal. Neck: Supple without lymphadenopathy. No bruits. Heart: Regular rate and rhythm. No murmur or rub. Lungs: Clear bilaterally. No increased work of breathing, crackles or wheezes. Abdomen: Soft and nontender. No organomegaly. Extremities: Well perfused. No edema. No calf tenderness. Pulses intact. Neurologic: Patient is alert and oriented to person and place. Speech is fluent. Face is symmetric. Moves all extremities equally, strength is 5 5 bilaterally. Cerebellar function intact by finger-nose testing. Affect: Normal. Skin: Warm and dry. Well perfused. Const: Vital Signs, click to edit/add: Vital Signs - 24 hr 11/03/21 11:13 11/03/21 11:20 11/03/21 11:30 Temperature 97.8 F Pulse Rate [Pulse Oximeter] 58 L 61 63 Respiratory Rate 20 12 Blood Pressure [Le ft Upper Arm] 176/60 H 154/60 H 153/60 H Pulse Oximetry 97 98 99 11/03/21 11:50 11/03/21 12:00 11/03/21 12:20 Temperature Pulse Rate [Pulse Oximeter] 62 62 56 L Respiratory Rate 16 19 17 Blood Pressure [Le ft Upper Arm] 157/62 H 163/63 H 167/68 H Pulse Oximetry 99 98 100 11/03/21 12:40 11/03/21 13:00 11/03/21 13:20 Temperature 96.1 F L Pulse Rate [Pulse Oximeter] 56 L 55 L 57 L Respiratory Rate 14 16 14 Blood Pressure [Le ft Upper Arm] 154/62 H 180/75 H Pulse Oximetry 100 100 100 11/03/21 13:40 11/03/21 14:00 11/03/21 14:20 Temperature Pulse Rate [Pulse Oximeter] 56 L 62 63 Respiratory Rate 15 16 21 Blood Pressure [Le ft Upper Arm] 181/71 H 187/68 H 179/64 H Pulse Oximetry 99 99 98 11/03/21 14:40 Temperature Pulse Rate [Pulse Oximeter] 63 Respiratory Rate 20 Blood Pressure [Le ft Upper Arm] 196/65 H Pulse Oximetry 99 Documenting provider has reviewed patient's vital signs: yes Course Course Hospital Course: On arrival, patient went directly to the CT scanner, where she had a noncontrast head CT. By my review this was unremarkable, no evidence of intracranial hemorrhage, mass or other acute findings. The final radiology report was likewise negative. She had an EKG which by my review showed a normal sinus rhythm, ventricular rate of 63 beats per minute. No acute ST segment changes. She remained neurologically stable without complaint here. Labs showed a normal white blood cell count of 5.6, hemoglobin of 13.2. Normal platelets. Sodium was 133, potassium was 5.3. Chloride 103. BUN was normal, creatinine not surprisingly elevated at 3.4. Glucose was 102. Lactate was normal. LFTs were within normal limits. Troponin was negative, 0.02. CRP was less than 0.5. Overall, patient had a spell of nonresponsiveness during dialysis. Her neurologic exam has been nonfocal. Diagnostic considerations stroke, seizure, metabolic, infectious, or structural causes, as well as arrhythmia, PE. Given the absence of any complaints of shortness of breath, chest pain, hypoxia, tachycardia etcetera, I did not pursue PE. There is no report of seizure activity. I do not find anything clinically to suggest that this was a stroke. Symptoms were brief and self limited. Her blood sugar was normal. She is not febrile, does not have any complaints to suggest a focal infection, has no labs to suggest infection. Metabolically, labs are reassuring. At this time, event was nonspecific, and I think it is reasonable to let her go home. If she has repeat episodes, we should see her back. I did talk with her nurse practitioner, Cirilo, at [facility]. He agrees with that plan. She was supposed to have a fistula placement tomorrow and that is going to be rescheduled for a few weeks from now given today's events. Her daughter, Irma, who is 1 of our lab techs here, was in the ER with her for a bit as well. She lives with her, will take her home and will be with her this evening. Return for any concerns or new symptoms. Otherwise, follow-up as planned at [facility] Vital Signs Vital signs: Initial Vital Signs Temperature 97.8 F 11/03/21 11:13 Temperature Source Temporal Artery Scan 11/03/21 11:13 Pulse Rate 58 L 11/03/21 11:13 Respiratory Rate 20 11/03/21 11:13 Blood Pressure 176/60 H 11/03/21 11:13 Blood Pressure Mean 98 11/03/21 11:13 Blood Pressure Position Supine 11/03/21 11:13 Pulse Oximetry 97 11/03/21 11:13 Oxygen Delivery Method 11/03/21 11:13 Vital Signs Temperature 97.8 F 11/03/21 11:13 Pulse Rate 58 L 11/03/21 11:13 Respiratory Rate 20 11/03/21 11:13 Blood Pressure 176/60 H 11/03/21 11:13 Pulse Oximetry 97 11/03/21 11:13 Temperature 96.1 F L 11/03/21 13:20 Pulse Rate 63 11/03/21 14:40 Respiratory Rate 20 11/03/21 14:40 Blood Pressure 196/65 H 11/03/21 14:40 Pulse Oximetry 99 11/03/21 14:40 Medical Decision Making Lab Data Labs: Lab Results 11/03/21 11/03/21 11/03/21 Range/Units 11:45 11:45 11:45 WBC 5.63 (4.50-11.00) K/uL RBC 4.37 (4.00-5.20) m/uL Hgb 13.2 (12.0-16.0) gm/dL Hct 40.9 (33.0-51.0) % MCV 94 (80-100) fL MCH 30 (26-34) pg MCHC 32 (32-36) gm/dL RDW Coeff of Dutch 13.4 (11.5-15.5) % Plt Count 181 (140-440) K/uL Neut % (Auto) 57.0 (42.0-72.0) % Lymph % (Auto) 30.7 (20-44) % Mingo % (Auto) 7.5 (0.0-11.0) % Eos % (Auto) 3.9 (0.0-7.0) % Baso % (Auto) 0.7 (0.0-3.0) % Neut # (Auto) 3.21 (1.7-7.0) K/uL Lymph # (Auto) 1.73 (0.90-2.90) K/uL Mingo # (Auto) 0.40 (0.00-0.90) K/UL Eos # (Auto) 0.22 (0.00-0.50) K/uL Baso # (Auto) 0.04 (0.00-0.30) K/uL Abs Immat Gran (auto) 0.01 (0.00-0.30) K/uL Sodium 133 L (135-149) mmol/L Potassium 5.3 H (3.6-5.1) mmol/L Chloride 103 (96-114) mmol/L Carbon Dioxide 22 (20-32) mmol/L BUN 13 (7-30) mg/dL Creatinine 3.4 H (0.5-1.5) mg/dL Estimated GFR 13 ml/min Glucose 102 (60-115) mg/dL Lactate 1.3 (0.5-1.9) mmol/L Calcium 8.7 (8.4-10.6) mg/dL Total Bilirubin 0.5 (0.1-1.5) mg/dL Direct Bilirubin 0.4 (0.0-0.5) mg/dL AST 30 (12-35) U/L ALT 13 (4-35) U/L Alkaline Phosphatase 66 (40-150) U/L Troponin I 0.02 (0.01-0.04) ng/mL C-Reactive Protein < 0.5 L (0.5-1.0) mg/dL Total Protein 8.0 (6.0-8.3) g/dL Albumin 4.3 (3.3-5.0) g/dL Discharge Plan Discharge Clinical Impression: Spell of altered consciousness Patient Disposition: Home, Self-Care Condition: Improved Instructions: Syncope (ED) Additional Instructions: Return for recurrent episodes, or difficulties with speech, balance, weakness, numbness or other concerns. Otherwise, [facility] will call you to reschedule your fistula appointment. Follow Up/Referrals: Julio Spears MD [Primary Care Provider] - Stand Alone Forms: [employer] Info Instructions
[2021-11-03 12:13] LABS: Slide Review Reflex No
[2021-11-03 12:15] LABS: Chloride* 103 mmol/L (96-114)
[2021-11-03 12:16] LABS: Albumin* 4.3 g/dL (3.3-5.0); Potassium* 5.3 mmol/L (3.6-5.1); Sodium* 133 mmol/L (135-149)
[2021-11-03 12:18] LABS: Creatinine* 3.4 mg/dL (0.5-1.5); Estimated Glomerular Filt Rate 13 ml/min
[2021-11-03 12:19] LABS: Alanine Aminotransferase* 13 U/L (4-35); Alkaline Phosphatase* 66 U/L (40-150); Aspartate Amino Transferase* 30 U/L (12-35); Bilirubin Direct* 0.4 mg/dL (0.0-0.5); Bilirubin Total* 0.5 mg/dL (0.1-1.5); Blood Urea Nitrogen* 13 mg/dL (7-30); Calcium* 8.7 mg/dL (8.4-10.6); Carbon Dioxide* 22 mmol/L (20-32); Glucose* 102 mg/dL (60-115)
[2021-11-03 12:31] LABS: Troponin I* 0.02 ng/mL (0.01-0.04)
[2021-11-03 12:36] LABS: C Reactive Protein* < 0.5 mg/dL (0.5-1.0)
--- NOTE | 2021-11-03 13:45 | ED.NURSE ---
dr wood in room speaking to reilly (dtr) and reed.
== END 2021-11-03 16:42 | disposition home or self-care (01) ==
PROVIDERS: Emergency Provider Emergency Medicine; PCP Family Medicine
DX: R41.82 Altered mental status, unspecified (principal)
CPT/HCPCS: 36415; 70450; 80048; 80076; 83605; 84484; 85025; 86140; 93005; 99284; 99285

== ENCOUNTER 2021-11-11 14:30 | Outpatient (CLI) | payer MEDICARE, SELFPAY ==
--- OUTSIDE RECORDS SUMMARY | 2021-11-24 16:11 | XMS_ITS | Encounter Summary ---
:1945 Author Organization [employer] Physician [employer] Address [address] [place] [address] Phone Care Team Providers Name Role Phone Eusebia Whitaker MD Primary Care Provider Encounter Details Date Type Department Care Team Description [facility]/2019 [facility] Deena Had[place], [place] [address] [facility] [address] [place], [place] [address] Social History Tobacco Use Types Packs/Day Years [...] got the report and when I called [facility] they said she didn't have it done. I talked with her daughter, Irma, today. Courtney was admitted to [facility] in [place] shortly after visit here. ECHO was done [...] on filedocumented in this encounter Care Teams Systems Security Consultant Relationship Specialty Start Date End Date Eusebia Whitaker MD PCP - General Family Medicine 11/24/19 [address] [facility] [address] [place] [address] documented as of this encounter
--- OUTSIDE RECORDS SUMMARY | 2021-11-24 16:11 | XMS_ITS | Clinical Summary ---
:1945 Author Organization [employer] [facility]ician [employer] Address [address] [place] [address] Phone Care Team Providers Name Role Phone [...] 3 (moderate) 02/07/2019 Proteinuria 02/07/2019 Anemia 02/07/2019 residential current use of non-steroidal anti-inflammato ameya 02/07/2019 [...] Advance Directives For more information, please contact: [phone] (Available ) Documents on File Type Date Recorded Patient Printing Sign Machine Operator Explanati on Advance Directives and Living Will Power of Chief Power Dispatcher Care Teams Event Manager Relationship Specialty Start Date End Date Eusebia Whitaker MD PCP - General Family Medicine 11/24/[address] [address]
--- OUTSIDE RECORDS SUMMARY | 2021-11-24 16:11 | XMS_ITS | Encounter Summary ---
:1945 Author Organization [employer] Physician [employer] Address [address] [place] [address] Phone Care Team Providers Name Role Phone Eusebia Whitaker MD Primary Care Provider Reason for Visit Reason Comments Med Refill Encounter Details Date Type Department Care Team Description 04/30/2020 Refill [facility] Audi Maurer MD [address] [facility] [address] [facility] [address] [place] [address] [place] [address] [phone] (Wo rk) Social History Tobacco Use Types [...] on filedocumented in this encounter Care Teams Process Improvement Engineer Relationship Specialty Start Date End Date Eusebia Whitaker MD PCP - General Family Medicine 11/24/19 [address] [place] [address] documented as of this encounter
--- OUTSIDE RECORDS SUMMARY | 2021-11-24 16:12 | XMS_ITS | Encounter Summary ---
:1945 Author Organization [employer] Physician [facility] Address [address], [place] [address] Phone Care Team Providers Name Role Phone Unavailable Primary Care Provider Unavailable Reason for Visit Reason Onset Date Comments Results 09/03/2019 Encounter Details Date Type Department Care Team Description 09/03/2019 [facility] Deena Had[place] RN Results [address] [facility] [address] [place] [address] Social History Tobacco Use Types Packs/Day Years [...] for September [address] Kern at [facility]. Prep instructions were mailed to Irma. Courtney will travel home that weekend before. elephone Encounter - eDena Had[place] RN - 09/03/2019 2:11 PM CDT [...]
--- OUTSIDE RECORDS SUMMARY | 2021-11-24 16:12 | XMS_ITS | Encounter Summary ---
:1945 Author Organization [employer] Physician [employer] Address [address] [place] [address] Phone Care Team Providers Name Role Phone Eusebia Whitaker MD Primary Care Provider Reason for Visit Reason Onset Date Comments Lab results 11/10/2019 Encounter Details Date Type Department Care Team Description 11/10/2019 Telephone [facility] Shahrzad Choi RN Lab results [address] [place] [address] Social History Tobacco Use Types Packs/Day Years [...] Update 11/11. I will get records from [facility] to confirm the information below. Irma called [...] First available with you is 12/11. See DIALYSIS NURSE/PA? Overbook? elephone Encounter - Audi Maurer MD [...] - 11/10/2019 4:21 PM CDT Message from director of front office that patient's daughter was asking for most [...] that the patient saw a provider at [facility] in [place] about two weeks ago and a hemoccult test was positive but nothing was done at that time. She has not seen any blood in the stool. Stool is dark butshe is taking iron supplements. She denies SOB or lightheadedness. I told her to contact the [facility] and advise on the drop in hgb [...] on filedocumented in this encounter Care Teams Envelope Sealing Machine Operator Relationship Specialty Start Date End Date Eusebia Whitaker MD PCP - General Family Medicine 11/24/[address] [place] [address] documented as of this encounter
--- OUTSIDE RECORDS SUMMARY | 2021-11-24 16:12 | XMS_ITS | Encounter Summary ---
:1945 Author Organization [employer] [facility]ician [employer] Address [address] [place] [address] Phone Care Team Providers Name Role Phone Unavailable Primary Care Provider Unavailable Reason for Visit Reason Onset Date Comments Follow-up 06/20/2019 Encounter Details Date Type Department Care Team Description 06/20/2019 Telephone [facility] Deena Hadley RN Follow-up [address] [facility] [address] [place], [place] [address] Social History Tobacco Use Types Packs/Day Years [...] 06/23/2019 1:10 PM CDT Orders faxed to [facility] in [place]. Irma informed. elephone Encounter - Audi Maurer MD - 06/23/2019 10:20 AM CDT That's fine. She can get - RFP, CBC, UA, UPCR locally and have it sent to us. elephone Encounter - Deena Hadley RN - 06/20/2019 10:44 AM CDT Courtney is in [place] visiting family. She is not wanting to [...]
--- OUTSIDE RECORDS SUMMARY | 2021-11-24 16:12 | XMS_ITS | Encounter Summary ---
:1945 Author Organization [employer] Address [address] [place] [address] Phone Care Team Providers Name Role Phone Eusebia Whitaker MD Primary Care Provider Encounter Details Date Type Department Care Team Description 11/28/2019 Office Visit [facility] Gisela Maurer MD Chronic kidney disease stage 4 (CMS-HCC) (Primary Dx); [facility] [address] Essential (primary) hyperten mana; [address] Anemia in chronic kidney disease; [address] [place] [address] [place], [place] [phone] [address] Social History Tobacco Use Types Packs/Day Years [...] based on results. Check iron panel. 4) FDC (current) use of non-steroidal anti-inflammatories (NSAID): now [...] y.o. female with PMH of female from [facility] , whom I had initially seen in [...] was planned when she traveled over from [place] but had to be canceled on the [...] - lt base CV =s1+s2 PA =soft WOOD TANK BUILDER - nonfocal LE Edema, b/l pitting. Audi Maurer MD [facility] [phone] No orders of the defined types were placed in this encounter. documented in this encounter Plan of Treatment Not on filedocumented as of this encounter Visit Diagnoses Diagnosis Chronic kidney disease stage 4 (CMS-HCC) - Primary Essential (primary) hypertension Anemia in chronic kidney disease Isolated proteinuria documented in this encounter Care Teams Machinist Set Up Relationship Specialty Start Date End Date Eusebia Whitaker MD PCP - General Family Medicine 11/24/[address] [place] [address] documented as of this encounter
--- OUTSIDE RECORDS SUMMARY | 2021-11-24 16:12 | XMS_ITS | Encounter Summary ---
:1945 Author Organization [employer] [facility]ician [employer] Address [address] [place] [address] Phone Care Team Providers Name Role Phone Unavailable Primary Care Provider Unavailable Reason for Visit Reason Onset Date Comments Renal Cyst 02/20/2019 Encounter Details Date Type Department Care Team Description 02/20/2019 Telephone [facility] Deena Hadley RN Renal Cyst [address] [facility] [address] [place], [place] [address] Social History Tobacco Use Types Packs/Day Years [...] cysts. No need for follow up imaging. TriloqTelephone Encounter - Deena Hadley RN - 03/11/2019 8:05 AM CST We had still not received the addended report for the CT done 02/17. The request made to [facility] was to have radiologist comment further on the renal cyst. I called again yesterday. The radiologist had dictated it but it was never transcribed and faxed. Per yarn salvager, The bilateral renal cysts are simple in appearance. No further workup is needed. Telephone Encounter - Deena Hadley RN - 02/20/2019 4:08 PM CST Per the request of Dr. Maurer, I called [facility] where pts CT abd/pelvis was done. He is looking for more comments on the renal cyst noted on the US, is it simple or complex for example. intraoperative neuro tech is going to give the note to [...]
--- OUTSIDE RECORDS SUMMARY | 2021-11-24 16:12 | XMS_ITS | Encounter Summary ---
:1945 Author Organization [employer] Address [address] [place] [address] Phone Care Team Providers Name Role Phone Unavailable Primary Care Provider Unavailable Reason for Visit Reason Onset Date Comments Med Refill 08/08/2019 Encounter Details Date Type Department Care Team Description 08/08/2019 Refill [facility] Deena Hadley RN [address] [facility] [address] [place], [place] [address] Social History Tobacco Use Types Packs/Day Years [...] was unable to find it in the [employer] database. Scripts called in as directed below. I faxed her labs order for 2 weeks. Will await those results and make further plans. MD Deena Harrison MA ?? D/C valsartan and Chlorthalidone Start Furosemide 20 mg BID , Coreg 12.5 mg BID ( monitor HR) . Irma will give you the details of local pharmacy in [place] when you call her. Labs at [place] in 2 wks. If stable / worse, pt will come back to [facility] and plan on getting a renal biopsy done. Labs - RFp, CBC, Iron panel , ferritin F/u 1 month documented in this encounter Plan of Treatment Not on filedocumented as of this encounter Visit Diagnoses Not on filedocumented in this encounter
--- OUTSIDE RECORDS SUMMARY | 2021-11-24 16:12 | XMS_ITS | Encounter Summary ---
:1945 Author Organization [employer] Physician [employer] Address [address] [place] [address] Phone Care Team Providers Name Role Phone Unavailable Primary Care Provider Unavailable Reason for Visit Reason Onset Date Comments Results 10/01/2019 Encounter Details Date Type Department Care Team Description 10/01/2019 [facility] Deena Hadley RN Results [address] [place] [address] Social History Tobacco Use Types Packs/Day Years [...] this. I left a detailed message for oCurtney and Irma, her daughter. I instructed them [...]
--- OUTSIDE RECORDS SUMMARY | 2021-11-24 16:12 | XMS_ITS | Encounter Summary ---
:1945 Author Organization [employer] Address [address] [place] [address] Phone Care Team Providers Name Role Phone Unavailable Primary Care Provider Unavailable Encounter Details Date Type Department Care Team Description 02/07/2019 Orders Only [facility] Audi Maurer MD [address] [facility] [place] [address] [facility] [address] [place] [address] [place] [address] [phone] (Wo rk) Social History Tobacco Use Types [...] ID: CB ?Name: [facility] ?Address: [address] [place] [address] [place] [address] ?Director: Ramiro Fitzpatrick M.D. Audi Maurer MD [...] (D2,D3), LC/MS/MS is recomm ended: order code 20471 (patients >2yrs). For more information on this test, go to : http://education.[employer].Securus/fa q/ROV484 (This link is being provided for informational/educational purposes only. ) Specimen Anatomical Collection Method Collection Time Receive d Time (Source) Location / / Volume Laterality 02/07/2019 9:20 AM 9 9:25 CDT AM CDT Resulting Agency Comment Performing Organization Information: ?Site ID: CB ?Name: [facility] ?Address: [address] [place] [address] [place] [address] ?Director: Ramiro Fitzpatrick M.D. Audi Maurer MD [...] ?Site ID: CB ?Name: [facility] ?Address: [address] [place], [place] [address], [place] [address] ?Director: Ramiro Fitzpatrick M.D. Audi Maurer MD LAB BLOOD ORDERABLES Performing Organization Address [facility]/ZIP Code Phon e Number [facility] [place] ([place]) Ferritin, Serum (02/07/2019 9:20 AM CDT) P athologist Signature Ferritin, 54 16 - 288 [facility] - Serum/Plasma ng/mL [place] (WDL) Specimen Anatomical Collection Method Collection Time Receive d Time (Source) Location / / Volume Laterality 02/07/2019 9:20 AM 9 9:25 CDT AM CDT Resulting Agency Comment Performing Organization Information: ?Site ID: ?Name: [facility]ph[facility] Gardiner ?Address: [address] [place], [place] [address], [place] [address] ?Director: Ramiro Fitzpatrick M.D. Audi Maurer MD LAB BLOOD ORDERABLES Performing Organization Address [facility]/ZIP Code Phon e Number [facility] [place] [...] t est for HCV RNA (test code 22368) is suggested. For additional information please refer to http://education.[employer].Securus/fa q/JGR30c2 (This link is being provided for informa tional/ educational purposes only.) Specimen Anatomical Collection Method Collection Time Receive d Time (Source) Location / / Volume Laterality 02/07/2019 9:20 AM 9 9:25 CDT AM CDT Resulting Agency Comment Performing Organization Information: ?Site ID: CB ?Name: [facility] ?Address: [address] [place], [place] [address]jerzy [place] [address] ?Director: Ramiro Fitzpatrick M.D. Audi Maurer MD LAB BLOOD ORDERABLES Performing Organization Address [facility]/ZIP Code Phon e Number [facility] [place] [...] ID: CB ?Name: [facility] ?Address: [address] [place], [place] [address]jer[place] [address] ?Director: Ramiro Fitzpatrick M.D. Audi Maurer MD LAB BLOOD ORDERABLES Performing Organization Address [facility] Code [...] Information: ?Site ID: CB ?Name: [facility]ce[facility] Gardnier ?Address: [address] [place], [place] [address]jerzy [place] [address] ?Director: Ramiro Fitzpatrick M.D. Audi Maurer MD LAB BLOOD ORDERABLES Performing Organization Address City/State/ZIP Code Phon e Number [facility] ANCA Screen w/ Vasculitides (MPO, PR3) (02/07/2019 9:20 AM CDT) [facility] Method Time Signature Myeloperoxidase Ab, <1.0 AI [facility] - Serum [place] ([place]DL) Comment: ? Value ?Interpretation ? ----- [...] ?? Antibody Detected ? Autoantibodies to proteinase-3 (MS-3) ar e accepted as characteristic for granulomatosis with p olyangiitis (GPA, Gianna's), and are detectable in 95% of the histologically proven cases. The cytopla smic IFA pattern, (c-ANCA), is based largely on a utoantibody to MS-3 which serves as the primary antigen . These autoantibodies are present in acti ve disease. Specimen Anatomical Collection Method Collection Time Receive d Time (Source) Location / / Volume Laterality 02/07/2019 9:20 AM 9 9:25 CDT AM CDT Resulting Agency Comment Performing Organization Information: ?Site ID: CB ?Name: Alph[facility] Gardiner ?Address: [address] [place] [address] [place] [address] ?Director: Ramiro Fitzpatrick M.D. Audi Maurer MD LAB BLOOD ORDERABLES Performing Organization Address City/State/ZIP Code Phon e Number [facility] [place] ([place]) (ABNORMAL) [place] and Lambda Free Light Chains, Qn, Serum (02/07/2019 9:20 AM CDT) athologist Signature [place] light 56.2 (H) 3.3 - 19.4 [facility] - chains, free, mg/L [place] Serum (WDL) Lambda light 28.8 (H) 5.7 - 26.3 [facility] - chains, free, mg/L [place] Serum/Plasma (WDL) [place] light 1.95 (H) 0.26 - [facility] - [...] ?Site ID: CB ?Name: [facility]ph[facility] Gardiner ?Address: [address] [place] [address] [place] [address] ?Director: Ramiro Fitzpatrick M.D. Audi Maurer MD LAB BLOOD ORDERABLES Performing Organization Address City/[facility]/ZIP Code Phon e Number [facility] [place] [...] Organization Information: ?Site ID: CB ?Name: [facility] ?Address: [address] [place], [place] [address] [address] ?Director: Ramiro Fitzpatrick M.D. Audi Maurer MD LAB BLOOD ORDERABLES Performing Organization Address [facility] Code [...] Organization Information: ?Site ID: CB ?Name: [facility] ?Address: [address] [place] [address] [place] [address] ?Director: Ramiro Fitzpatrick M.D. Audi Maurer MD LAB URINE ORDERABLES Performing Organization Address [facility] Phon e Number [facility] [place] ([place]) [...] AC-0: Negative International Consensus on KOMAL Patterns (https://doi.org/10.1515/fivk-1568-8393) For additional information, please refer to http://education.Hibernater.Securus/fa q/QOC959 (This link is being provided for informa tional/ educational purposes only.) ?? Specimen Anatomical Collection Method Collection Time Receive d Time (Source) Location / / Volume Laterality 02/07/2019 9:20 AM 9 9:25 CDT AM CDT Resulting Agency Comment Performing Organization Information: ?Site ID: CB ?Name: [facility] ?Address: [address] [place], [place] [address] [place] [address] ?Director: Ramiro Fitzpatrick M.D. Audi Maurer MD LAB BLOOD ORDERABLES Performing Organization Address City/State/ZIP Code Phon e Number [facility] [place] ([place]) Immunofixation, Urine (02/07/2019 9:20 AM CDT) [facility] Method Time Signature Immunofixation for [facility] [...] Performing Organization Information: ?Site ID: CB ?Name: [facility] ?Address: [address] [place] [address] [employer] [place] [address] ?Director: Ramiro Fitzpatrick M.D. Audi Maurer MD LAB BLOOD ORDERABLES Performing Organization Address City/State/ZIP Code Phon e Number [facility] [place] ([place]) (ABNORMAL) CBC (includes Differential/Platelets) (02/07/2019 9:20 AM CDT) [facility] Method Time Signature Leukocytes, Blood 8.5 [...] ID: CB ?Name: [facility] ?Address: [address] [place] [address] [place] [address] ?Director: Ramiro Fitzpatrick M.D. Audi Maurer MD LAB BLOOD ORDERABLES Performing Organization Address City/State/ZIP Code Phon e Number [facility] [place] ([place]) (ABNORMAL) Urinalysis, Complete, w/ Reflex to Culture (02/07/2019 9:20 AM CDT) [facility] Method Time Signature Color of Urine [...] Organization Information: ?Site ID: CB ?Name: [facility] ?Address: [address] [place] [address] [place] [address] ?Director: Ramiro Fitzpatrick M.D. Audi Maurer MD [...] 13% high er for people identified as -Colombian. eGFR, non 24 (L) > OR = 60 mL/min/1.73m2 [facility] [place] ([place]) [place]ian eGFR, 28 (L) > OR = 60 [...] ID: CB ?Name: [facility] ?Address: [address] [place], [place] [address] [address] ?Director: Ramiro Fitzpatrick M.D. Audi Maurer MD LAB BLOOD ORDERABLES Performing Organization Address [facility] Phon e Number [facility] [place] ([place]DL) [...] ID: CB ?Name: [facility] ?Address: [address] [place] [address] [place] [address] ?Director: Ramiro Fitzpatrick M.D. Audi Maurer MD LAB BLOOD ORDERABLES Performing Organization Address [facility] Phon e Number [facility] [place] ([place]) [...] Organization Information: ?Site ID: CB ?Name: [facility] ?Address: [address] [place] [address] [place] [address] ?Director: Ramiro Fitzpatrick M.D. Audi Maurer MD LAB BLOOD ORDERABLES Performing Organization Address [facility] Code [...] Organization Information: ?Site ID: CB ?Name: [facility] ?Address: [address] [place], [place] [address] [address] ?Director: Ramiro Fitzpatrick M.D. Audi Maurer MD LAB BLOOD ORDERABLES Performing Organization Address City/[facility]/ZIP Code Phon e Number [facility] [place] ([place]) documented in this encounter Visit Diagnoses Not on filedocumented in this encounter
--- OUTSIDE RECORDS SUMMARY | 2021-11-24 16:12 | XMS_ITS | Encounter Summary ---
:1945 Author Organization [employer] Address [address], [place] [address] Phone Care Team Providers Name Role Phone Eusebia Whitaker MD Primary Care Provider Encounter Details Date Type Department Care Team Description 11/28/2019 Orders Only [facility] Audi Maurer MD [address] [facility] [address] [facility] [address] [place] [address] [place], [place] [address] (Wo rk) Social History Tobacco Use Types [...] (D2,D3), LC/MS/MS is recomm ended: order code [id number] (patients >2yrs). See Note 1 Note 1 For additional information, please refer to http://education.Curalate.MediaMath/fa q/NHD345 (This link is being provided for informa tional/ educational purposes only.) Specimen Anatomical Collection Method Collection Time Receive d Time (Source) Location / / Volume Laterality 11/28/2019 11:55 11/28/2019 AM CDT 11:57 AM CDT Resulting Agency Comment Performing Organization Information: ?Site ID: CB ?Name: [facility] ?Address: [address] [place] [address] [place] [address] ?Director: Ramiro Fitzpatrick M.D. Audi Maurer MD [...] Organization Information: ?Site ID: CB ?Name: [facility] ?Address: [address] [place], [place] [address] [address] ?Director: Ramiro Fitzpatrick M.D. Audi Maurer MD LAB BLOOD ORDERABLES Performing Organization Address City/[facility]/ZIP Code Phon e Number [facility] [place] ([place]) Ferritin, Serum (11/28/2019 11:55 AM CDT) P athologist Signature Ferritin, 42 16 - 288 [facility] - Serum/Plasma ng/mL [place] (WDL) Specimen Anatomical Collection Method Collection Time Receive d Time (Source) Location / / Volume Laterality 11/28/2019 11:55 11/28/2019 AM CDT 11:57 AM CDT Resulting Agency Comment Performing Organization Information: ?Site ID: CB ?Name: [facility] ?Address: [address] [place], [place] [address] [address] ?Director: Ramiro Fitzpatrick M.D. Audi Maurer MD LAB BLOOD ORDERABLES Performing Organization Address City/[facility]/ZIP Code Phon e Number [facility] [place] [...] Organization Information: ?Site ID: CB ?Name: [facility] ?Address: [address] [place], [place] [address]jerzy [place] [address] ?Director: Ramiro Fitzpatrick M.D. Audi Maurer MD LAB BLOOD ORDERABLES Performing Organization Address City/State/ZIP Code Phon e Number [facility] [place] ([place]) (ABNORMAL) [place] and Lambda Free Light Chains, Qn, Serum (11/28/2019 11:55 AM CDT) P athologist Signature [place] light 86.3 (H) 3.3 - 19.4 [facility] - chains, free, mg/L [place] Serum (WDL) Lambda light 38.2 (H) 5.7 - 26.3 [facility] - chains, free, mg/L [place] Serum/Plasma (WDL) [place] light 2.26 (H) 0.26 - [facility] - [...] Performing Organization Information: ?Site ID: CB ?Name: [facility] ?Address: [address] [place] [address] [place] [address] ?Director: Ramiro Fitzpatrick M.D. Audi Maurer MD [...] ?Site ID: CB ?Name: [facility] ?Address: [address] [place], [place] [address] [address] ?Director: Ramiro Fitzpatrick M.D. Audi Maurer MD LAB URINE ORDERABLES Performing Organization Address [facility] Phon e Number [facility] [place] ([place]) Immunofixation (VLADIMIR), Urine (11/28/2019 11:55 AM CDT) [facility] Method Time Signature Immunofixation for [facility] [...] ?Site ID: CB ?Name: [facility] ?Address: [address] [place], [place] [address] [address] ?Director: Ramiro Fitzpatrick M.D. Audi Maurer MD LAB BLOOD ORDERABLES Performing Organization Address [facility] e Number [facility] [place] ([place]) (ABNORMAL) CBC (includes Differential/Platelets) (11/28/2019 11:55 AM CDT) [facility] Method Time Signature Leukocytes, Blood 5.6 [...] ID: CB ?Name: [facility] ?Address: [address] [place] [address] [place] [address] ?Director: Ramiro Fitzpatrick M.D. Audi Maurer MD LAB BLOOD ORDERABLES Performing Organization Address City/State/ZIP Code Phon e Number [facility] [place] ([place]) (ABNORMAL) Urinalysis, Complete, w/ Reflex to Culture (11/28/2019 11:55 AM CDT) [facility] Method Time Signature Color of Urine [...] ID: CB ?Name: [facility] ?Address: [address] [place] [address] [place] [address] ?Director: Ramiro Fitzpatrick M.D. Audi Maurer MD [...] ID: CB ?Name: [facility] ?Address: [address] [place] [address] [place] [address] ?Director: Ramiro Fitzpatrick M.D. Audi Maurer MD [...] 13% high er for people identified as -[place] Islander. eGFR, non 15 (L) > OR = 60 mL/min/1.73m2 [facility] [place] ([place]) [place] Islander eGFR, 18 (L) > OR = 60 [...] Performing Organization Information: ?Site ID: CB ?Name: [facility] ?Address: [address] [place], [place] [address] [place] [address] ?Director: Ramiro Fitzpatrick M.D. Audi Maurer MD LAB BLOOD ORDERABLES Performing Organization Address [facility] Phon e Number [facility] [place] (WDL) [...] Performing Organization Information: ?Site ID: CB ?Name: [facility] ?Address: [address] [place], [place] [address] [place] [address] ?Director: Ramiro Fitzpatrick M.D. Audi Maurer MD LAB BLOOD ORDERABLES Performing Organization Address [facility] Phon e Number [facility] [place] ([place]) [...] Comment Performing Organization Information: ?Site ID: ?Name: [facility] ?Address: [address] [place] [address] [place] [address] ?Director: Ramiro Fitzpatrick M.D. Audi Maurer MD LAB BLOOD ORDERABLES Performing Organization Address City/State/ZIP Code Phon e Number [facility] [place] ([place]) documented in this encounter Visit Diagnoses Not on filedocumented in this encounter Care Teams Oil Program Compliance Specialist Relationship Specialty Start Date End Date Eusebia Whitaker MD PCP - General Family Medicine 11/24/[address] [place] [address] documented as of this encounter
--- OUTSIDE RECORDS SUMMARY | 2021-11-24 16:12 | XMS_ITS | Encounter Summary ---
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
--- OUTSIDE RECORDS SUMMARY | 2021-11-24 16:12 | XMS_ITS | Encounter Summary ---
:1945 Author Organization [employer] Address [address] [place] [address] Phone Care Team Providers Name Role Phone Unavailable Primary Care Provider Unavailable Reason for Visit Reason Comments Med Refill Encounter Details Date Type Department Care Team Description 10/01/2019 Refill [facility] Adrian Kern MD [address] [facility] [address] [facility] [address] [place] [address] [place] [address] [phone] (Wo rk) Social History Tobacco Use Types [...]
--- OUTSIDE RECORDS SUMMARY | 2021-11-24 16:12 | XMS_ITS | Encounter Summary ---
:1945 Author Organization [employer] Address [address] [place] [address] Phone Care Team Providers Name Role Phone Unavailable Primary Care Provider Unavailable Reason for Visit Reason Onset Date Comments Results 07/25/2019 Encounter Details Date Type Department Care Team Description 07/25/2019 Telephone [facility] Deena Hadley RN Results [address] [place] [id number] Social History Tobacco Use Types Packs/Day Years Used Date Never Smoker Alcohol Use Standard Drinks/Week Comments Yes 0 (1 standard drink = 0.6 oz pure Alcoho lic Drinks/day: 1 -2 glass of alcohol) wine per week Sex Assigned at Date Recorded Not on file documented as of this encounter Miscellaneous Notes Telephone Encounter - eDena Hadley RN - 07/25/2019 4:[address] Maurer, labs from 06/29 are worse. Control Panel Operator Crude Unit up to 2.71 from 1.9. Pt should hydrate well and recheckBMP, UA, alb/inspector ball points ratio and CBC next week. She may need renal bx. Daughter will call her mother who is still in [place] with directions. Lab orders were faxed to [facility] used in June. If her mother is feeling bad in any way, she will call us. documented in this encounter Plan of Treatment Not on filedocumented as of this encounter Visit Diagnoses Not on filedocumented in this encounter
--- OUTSIDE RECORDS SUMMARY | 2021-11-24 16:12 | XMS_ITS | Encounter Summary ---
:[address] [facility] Address [address] [place] [address] Phone Care Team Providers Name Role Phone Unavailable Primary Care Provider Unavailable Encounter Details Date Type Department Care Team Description 08/08/2019 Office Visit [facility] Gisela Maurer MD Chronic kidney disease stage 4 (CMS-HCC) (Primary Dx); LTD [address] Isolated proteinuria; [address] Essential (primary) hypertension; [address] Hyperlipidemia, not otherwise specified; [place] [address] [place], [place] Anemia in chronic kidney dis ease [phone] [address] Social History Tobacco Use Types Packs/Day Years [...] mg BID ( monitor HR) Labs at [place] in 2 wks. If stable / worse, pt will come back to [facility] and plan on getting a renal biopsy done. 2) Proteinuria: see above. 3) Anemia: Hgb 10.1 on 08/01/19. Iron sat 22% in Feb. Check with next lab. 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 female with PMH of female from [facility] , whom I had initially [...] - HBA1C 5.6-5.8 Pt is currently in [place] with her daughter. Reports she is doing [...] imaging studies were reviewed. Audi Maurer MD [facility] [phone] No orders of the defined types were placed in this encounter. documented in this encounter Plan of Treatment Not on filedocumented as of this encounter Visit Diagnoses Diagnosis Chronic kidney disease stage 4 (CMS-HCC) - Primary Isolated proteinuria Essential (primary) hypertension Hyperlipidemia, not otherwise specified Anemia in chronic kidney disease documented in this encounter
--- OUTSIDE RECORDS SUMMARY | 2021-11-24 16:12 | XMS_ITS | Encounter Summary ---
:1945 Author Organization [facility] [employer] Address [address], [place] [address] Phone Care Team Providers Name Role Phone Unavailable Primary Care Provider Unavailable Reason for Visit Reason Onset Date Comments Results 08/04/2019 Encounter Details Date Type Department Care Team Description [facility] Deena Hadley RN Results [address] [place], [place] [address] Social History Tobacco Use Types Packs/Day Years [...] mom would like to establish care in [place] or if she would be coming back to [place] soon and then we should probablyscheduled FUV here to discuss next steps. Telephone Encounter - Audi Maurer MD - 08/04/2019 3:27 PM CDT She should probably find a local manager oncology if there is no plan to return to [place]. She will likely need a renal biopsy. elephone Encounter - Deena Hadley RN - 08/04/2019 1:33 PM CDT Repeat labs from [facility] in [place] will be scanned in under MEDIA. Hatch Supervisor is up again. Are you thinking biopsy? Should we schedule a phone visit with pt in [place]? When I last spoke with her daughter there was no return to [place] scheduled. documented in this encounter Plan of Treatment Not on filedocumented as of this encounter Visit Diagnoses Not on filedocumented in this encounter
--- OUTSIDE RECORDS SUMMARY | 2021-11-24 16:13 | XMS_ITS | Encounter Summary ---
:1945 Author Organization [facility] Address [address] [place] [address] Care Team Providers Name Role Phone Unavailable Primary Care Provider Unavailable Encounter Details Date Type Department Care Team Description 06/15/2021 Documentation Division of Nephrology and Delbert Flor, Hypertension, Christianity Taryn Cason, M.S.W. [place], in [place], [facility] [address] [place], [place] [address] [place] [address] [place] [address] [phone] Social History Tobacco Use Types Packs/Day Years Used Date Smoking Tobacco: Never Assessed Sex Assigned at Date Recorded Not on file documented as of this encounter Progress Notes Carmencita Flor L.I.C.S.W., M.S.W. - 06/15/2021 8:51 AM CST SUBJECTIVE The patient is scheduled to start dialysis today, SundayJune 15 at 2 pm at [facility]. They have received all the necessary information for the patient to be accepted. OBJECTIVE The patient will initiate dialysis at [facility]. ASSESSMENT / PLAN ASSESSMENT Her daughter was provided with all of the necessary information regarding her dialysis schedule. PLAN Social work will be available to provide support as needed. Ria Robbins, M.S.W. 06/15/21 STOCK COUNTER documented in this encounter Plan of Treatment Scheduled Procedures Name Priority Associated Diagnoses Date/Time PLACEMENT ARTERIOVENOUS GRAFT UPPER Chronic Kidn ey Disease Stage 5 EXTREMITY Glomerular Filtration Rate Less Than 15 (HCC) documented as of this encounter Visit Diagnoses Not on filedocumented in this encounter
--- OUTSIDE RECORDS SUMMARY | 2021-11-24 16:13 | XMS_ITS | Encounter Summary ---
:[address] [facility] Address [address] [place] [address] Care Team Providers Name Role Phone Unavailable Primary Care Provider Unavailable Encounter Details Date Type Department Care Team Description 10/17/2021 Orders Only Division of Nephrology Justo Sauer Chro myrna Failure Renal and Hypertension in R.N. End Stage Renal [place], [place] [phone] Disease Dialysis [address] (Work) Dependent (HCC) [place] [address] (Primary Dx) [phone] Social History Tobacco Use Types Packs/Day Years [...]
--- OUTSIDE RECORDS SUMMARY | 2021-11-24 16:13 | XMS_ITS | Encounter Summary ---
:1945 Author Organization [facility] Address [address] [place] [address] Care Team Providers Name Role Phone Unavailable Primary Care Provider Unavailable Reason for Visit Reason Comments Med Refill Encounter Details Date Type Department Care Team Description 04/19/2021 Refill Division of Nephrology and [place], Shlomo Whitehead Jr., Med Refill Hypertension in [facility] [address] [facility] [address] [place] [address] [place] [address] [phone] Social History Tobacco Use Types Packs/Day Years [...]
--- OUTSIDE RECORDS SUMMARY | 2021-11-24 16:13 | XMS_ITS | Encounter Summary ---
:1945 Author Organization [facility] Address [address] [place] [address] Care Team Providers Name Role Phone Unavailable Primary Care Provider Unavailable Reason for Referral Outpatient (Routine) - Closed Specialty Diagnoses / Procedures Referred By Contact Refer red To Contact Radiology Diagnoses Complication Dialysis Catheter Initial Jenna Neri APRN, C.N.P. [facility] Procedures IR Dialysis / High Flow Catheter Exchange [address] [place] [address] Referral ID Status Reason Start Date Expiration Date Visits Requ ested Visits Authorized [id number] Closed 10/19/2021 10/19/2022 1 1 Encounter Details Date Type Department Care Team Description 10/19/2021 Orders Only Division of Nephrology Jenna Neri, Compl ication Dialysis and Hypertension, GLADYS, C.N.P. Catheter Initial [facility] [place], in 200 [facility] (Primary Dx) [place], [place] [address] [place] [address] [place], [place] [phone] [address] (Work) [phone] Social History Tobacco Use Types Packs/Day Years [...] and dr aped in sterile fashion. Fluoroscopic wares sorter image demonstrates a tunneled dialysis cathete r in place. Using lidocaine 1% for local anesthesia, blunt dissection was performed freeing the cat heter cuff. Catheter was removed in its entirety over two stiff Glidewires. A 9-Tongan Brite Tip s azul placed, and a [...] and dr aped in sterile fashion. Fluoroscopic wares sorter image demonstrates a tunneled dialysis cathete r in place. Using lidocaine 1% for local anesthesia, blunt dissection was performed freeing the cat heter cuff. Catheter was removed in its entirety over two stiff Glidewires. A 9-Tongan Brite Tip s azul placed, and a [...]
--- OUTSIDE RECORDS SUMMARY | 2021-11-24 16:13 | XMS_ITS | Encounter Summary ---
:1945 Author Organization [facility] Address [address] [place] [address] Care Team Providers Name Role Phone Unavailable Primary Care Provider Unavailable Reason for Referral Outpatient (Routine) - Closed Specialty Diagnoses / Procedures Referred By Contact Refer red To Contact Radiology Diagnoses Chronic Kidney Disease Stage 5 Glomerular Filtration Rate Less Than 15 (HCC) Hypertension And Chronic Kidney Disease Stage 5 (HCC) Hyperparathyroidism Renal Secondary (HCC) Diabetes Mellitus Type 2 (HCC) [facility] Jr[facility] Chronic Right Heart Failure (HCC) Apnea Sleep Obstructive Proteinuria D.O. Procedures IR Dialysis / High Flow Catheter Placement [address] [place], [place] [address] Referral ID Status Reason Start Date Expiration Date Visits Requ ested Visits Authorized [id number] Closed 06/07/2021 06/07/2022 1 1 EKEEPING STAFF Reason for Visit Auth/Cert Specialty Diagnoses / [...] Expiration Date Visits Requ ested Visits Authorized [id number] 1 1 Encounter Details Date Type Department Care Team Description 06/14/2021 Hospital Department of Randal Weeks Jr., D.OGatito [address] [place] [address] Chronic Kidney Disease Stage 5 Glomerula r Filtration Rate Less Than 15 (HCC); Encounter Radiology in Maximo Tierney M.D. [address] [place] [address] Hypertension And Chronic Kidney Disease Stage 5 ([facility]); Trung Berrios Ricardo A, M.D. Hyperparathyroidism Renal Secondary ([facility] ); [place] Diabetes Mellitus Type 2 (HC C); [address] [facility] Chronic Right Heart Failure (HCC); [place], [place] Apnea Sleep Ob structive; [address] Proteinuria [phone] Social History Tobacco Use Types Packs/Day Years Used Date Smoking Tobacco: Never Assessed Sex Assigned at Date Recorded Not on file documented as of this encounter Last Filed Vital Signs Vital Sign Reading Time Taken Comments Blood Pressure 142/92 06/14/2021 1:35 PM HOUSEKEEPING STAFF Pulse 65 06/14/2021 1:35 PM HOUSEKEEPING STAFF Temperature 36.8 ??C (98.2 ??F) 06/14/2021 12:50 PM HOUSEKEEPING STAFF Respiratory Rate 14 06/14/2021 1:35 PM HOUSEKEEPING STAFF Oxygen Saturation 100% 06/14/2021 1:35 PM HOUSEKEEPING STAFF Inhaled Oxygen Concentration - - Weight - - Height - - Body Mass Index - - documented in this encounter Discharge Instructions AttachmentsThe following attachments cannot be sent through Care Everywhere. Central Venous Catheter: Reducing Your Risk of Infection (Italian)Hemodialysis Catheters (Italian)documented in this encounter Medications at Time of [...] Not applicable PATIENT INSTRUCTIONS No return appointment EKEEPING STAFF documented in this encounter Plan of Treatment Scheduled Procedures Name Priority Associated Diagnoses Date/Time PLACEMENT ARTERIOVENOUS GRAFT UPPER Chronic Kidn ey Disease Stage 5 EXTREMITY Glomerular Filtration Rate Less Than 15 (HCC) documented as of this encounter Procedures Procedure Name Priority Date/Time Associated Comments Diagnosis IR DIALYSIS / RAD - Routine 06/14/2021 12:34 Chronic Kidney Results for this HIGH FLOW (most inpatients PM HOUSEKEEPING STAFF Disease Stage 5 procedur e are in [...] High Flow Catheter Placement (06/14/2021 12:34 PM HOUSEKEEPING STAFF) Anatomical Region Laterality Modality Body, Vascular Interventional RST LOS, Vascular N/A X-Ray Angiography Interventional ARZ LOS, Vascular Interventional FLA LOS Specimen (Source) Anatomical Collection Method Collection Time Re ceived Time Location / / Volume Laterality 06/14/2021 1:22 PM HOUSEKEEPING STAFF Impressions 06/14/2021 1:27 PM HOUSEKEEPING STAFF Placement of a tunneled right IJ dialysis catheter. Tip at the right atrium. Ready for use. EP Narrative 06/14/2021 1:27 PM HOUSEKEEPING STAFF EXAM: IR DIALYSIS / HIGH FLOW CATHETER [...] injection 25 mcg Given 06/14/2021 12:22 PM HOUSEKEEPING STAFF 25 mcg (SUBLIMAZE) 25 mcg, intravenous, Every [...] than 8 breaths/minute Given 06/14/2021 12:18 PM HOUSEKEEPING STAFF 25 mcg Given 06/14/2021 12:14 PM HOUSEKEEPING STAFF 25 mcg flumazeniL injection 0.2 mg (ROMAZICON) 0.2 mg, intravenous, Once as needed, rev ersal, Starting on Sun06/14/21 at 1211, For 1 dose, Intraprocedure (RAD), Administer once if patient has a RASS score of -4, -5 and has a respiratory rate less than 8 breaths/minute. lidocaine-sodium bicarbonate (buffered) Given 06/14/2021 12:30 P M HOUSEKEEPING STAFF 10 mL 0.9%-8.4% injection infiltration, Code/trauma/sedation medication, Starting on Sun06/14/21 at 1230 midazolam (PF) injection 0.5 mg (VERSED) Given 06/14/2021 12:22 PM HOUSEKEEPING STAFF 0.5 mg 0.5 mg, intravenous, Every 2 min PRN, sedation, Starting on Sun06/14/21 at 1211, Intraprocedure (RAD), If RASS greater than -3, give additional dose(s) of 0.5 mg IV every 2 minutes for a maximum of 5 mg. Do not give if respiratory rate is less than 8 breaths/minute. Given 06/14/2021 12:18 PM HOUSEKEEPING STAFF 0.5 mg Given 06/14/2021 12:14 PM HOUSEKEEPING STAFF 0.5 mg NaCl 0.9% infusion 20 mL/hr, [...] 4 % injection Given 06/14/2021 12:27 PM HOUSEKEEPING STAFF 6 mL Code/trauma/sedation medication, Starting on Sun06/14/21 at 1227 documented in this encounter Active and Recently Administered Medications Times are shown in HOUSEKEEPING STAFF. PRN Medication Order 06/12/2021 06/13/2021 06/14/2021 fentaNYL [...] mg (VERSED) 1212 (Given - Provider: Randal Cabna R.N.)1214 (Given - Provider: Randal Caban R.N.)1218 [...]
--- OUTSIDE RECORDS SUMMARY | 2021-11-24 16:13 | XMS_ITS | Encounter Summary ---
:1945 Author Organization [facility] Address [address] [place] [address] Care Team Providers Name Role Phone Unavailable Primary Care Provider Unavailable Reason for Visit Reason Comments needs RX for gabapentin Encounter Details Date Type Department Care Team Description 07/22/2021 Clinical Division of Micky, needs RX for Communication Nephrology and Randal Whitehead Jr., gabapentin Hypertension in D.O. [place], [place] [address] [facility] [address] [place] [address] [phone] Social History Tobacco Use Types Packs/Day Years [...] would like it to be called into [facility] in [place] at [phone]. Thanks documented in this encounter Plan of Treatment Scheduled Procedures Name Priority Associated Diagnoses Date/Time PLACEMENT ARTERIOVENOUS GRAFT UPPER Chronic Kidn ey Disease Stage 5 EXTREMITY Glomerular Filtration Rate Less Than 15 (HCC) documented as of this encounter Visit Diagnoses Not on filedocumented in this encounter
--- OUTSIDE RECORDS SUMMARY | 2021-11-24 16:13 | XMS_ITS | Encounter Summary ---
:1945 Author Organization [facility] Address [address] [place] [address] Care Team Providers Name Role Phone Unavailable Primary Care Provider Unavailable Encounter Details Date Type Department Care Team Description 07/18/2021 Orders Only Division of Nephrology and Shlomo Weeks Hypertension in [place], ., D.O. [place] [address] [facility] [address] [place] [address] [phone] (Wo rk) Social History Tobacco Use Types [...]
--- OUTSIDE RECORDS SUMMARY | 2021-11-24 16:13 | XMS_ITS | Encounter Summary ---
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 200 [place] [address] Referral ID Status Reason Start Date Expiration Date Visits Requ ested Visits Authorized [id number] Closed 09/19/2021 09/19/2022 1 1 Encounter Details Date Type Department Care Team Description 10/17/2021 Nurse Only Division of Nephrology and Randal Painter Jr., D.O. [address] [place] [address] Hypertension in [facility] Justo Velasquez, RGatito[place]at[place] [address] [place], [place] [address] Social History Tobacco Use Types Packs/Day [...]
--- OUTSIDE RECORDS SUMMARY | 2021-11-24 16:13 | XMS_ITS | Encounter Summary ---
:1945 Author Organization [facility] Address [address] [place] [address] Care Team Providers Name Role Phone Unavailable Primary Care Provider Unavailable Encounter Details Date Type Department Care Team Description 07/06/2021 Orders Only Division of Nephrology and Jenna Neri A PRN, Hypertension, Jehovah'S Witness C.N.P. [place], in [place], [facility] [address] [place], [place] [address] [facility] [address] [place] [address] [phone] Social History Tobacco Use Types Packs/Day Years [...]
--- OUTSIDE RECORDS SUMMARY | 2021-11-24 16:13 | XMS_ITS | Encounter Summary ---
:1945 Author Organization [facility] Address [address] [place] [address] Care Team Providers Name Role Phone Unavailable Primary Care Provider Unavailable Reason for Referral Outpatient (Routine) - Authorized Specialty Diagnoses / Procedures Referred By Contact Refer red To Contact Diagnoses Chronic Kidney Disease Stage 5 Glomerular Filtration Rate Less Than 15 (HCC) Anemia Of Chronic Renal Disease Hyperparathyroidism Renal Secondary (HCC) Apnea Sleep Obstructive Randal Weeks Jr., [facility] Procedures DX Chest AP or PA and Lateral 2 Views D.O. 200 [place] [address] Referral ID Status Reason Start Date Expiration Date Visits V isits Requested Authorized [id number] Authorized 09/17/2021 09/17/2022 1 1 Outpatient (Routine) - Authorized Specialty Diagnoses / Procedures Referred By Contact Refer red To Contact Diagnoses Chronic Kidney Disease Stage 5 Glomerular Filtration Rate Less Than 15 (HCC) Anemia Of Chronic Renal Disease Hyperparathyroidism Renal Secondary (HCC) Apnea Sleep Obstructive Randal Weeks Jr. [facility] Procedures ECG 12 Lead D.O. 200 [place] [address] Referral ID Status Reason Start Date Expiration Date Visits V isits Requested Authorized [id number] Authorized 09/17/2021 09/17/2022 1 1 Outpatient (Routine) - Closed Specialty Diagnoses / Procedures Referred By Contact Refer red To Contact Diagnoses Chronic Kidney Disease Stage 5 Glomerular Filtration Rate Less Than 15 (HCC) Anemia Of Chronic Renal Disease Hyperparathyroidism Renal Secondary (HCC) Apnea Sleep Obstructive Randal Weeks Jr., [place] Procedures US Upper Extremity Left Dialysis Mapping D.O. [address] [place], [place] [address] Referral ID Status Reason Start Date Expiration Date Visits Requ ested Visits Authorized [id number] Closed 09/17/2021 09/17/2022 1 1 Outpatient (Routine) - Closed Specialty Diagnoses / Procedures Referred By Contact Refer red To Contact Nephrology and Diagnoses Chronic Kidney Disease Stage 5 Glomerular Filtration Rate Less Than 15 (HCC) Anemia Of Chronic Renal Disease Hyperparathyroidism Renal Secondary (HCC) Apnea Sleep Obstructive Randal Weeks [facility] Hypertension / Dialysis JrGatito, D.O. 200 [place] [address] Referral ID Status Reason Start Date Expiration Date Visits Requ ested Visits Authorized [id number] Closed 09/17/2021 09/17/2022 1 1 Scheduling Instructions TTS [place] patient so [place] good for a ppts Encounter Details Date Type Department Care Team Description 09/17/2021 Orders Only Division of [place], Chronic Kidney Disease Stage 5 Glomerular Filtration Rate Less Than 15 (HCC) (Primary Dx); Nephrology and Randal Whitehead Jr., Anemia Of Ch ronic Renal Disease; Hypertension in D.O. Hyperparathyroidism Renal Secondary (HCC ); [place], [place] [address] [facility] Apnea Sleep Obstructive [address] [place] [address] [phone] Social History Tobacco Use Types Packs/Day Years [...]
--- OUTSIDE RECORDS SUMMARY | 2021-11-24 16:13 | XMS_ITS | Encounter Summary ---
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 End Stage Renal [place], [place] [address] [facility] Disease Dialysis [address] [place], [place] Dependent (HCC) [place] [address] (Primary Dx) [phone] [phone] Social History Tobacco Use Types Packs/Day Years [...]
--- OUTSIDE RECORDS SUMMARY | 2021-11-24 16:13 | XMS_ITS | Encounter Summary ---
:1945 Author Organization [facility] Address [address] [place] [address] Care Team Providers Name Role Phone Unavailable Primary Care Provider Unavailable Reason for Visit Reason Comments Med Refill Encounter Details Date Type Department Care Team Description 08/09/2021 Refill Department of Nephrology in [facility], Randal Whitehead Jr., Med Refill [place], [place] D.O. [address] [place] [address] [place] [address] [phone] (Wo rk) Social History Tobacco Use Types [...]
--- OUTSIDE RECORDS SUMMARY | 2021-11-24 16:13 | XMS_ITS | Encounter Summary ---
:1945 Author Organization [facility] Address [address] [place] [address] Care Team Providers Name Role Phone Unavailable Primary Care Provider Unavailable Reason for Visit Appointment Request (Routine) - Closed Specialty Diagnoses / Procedures Referred By Contact Refer red To Contact Nephrology and Hypertension Referral ID Status Reason Start Date Expiration Date Visits Requ ested Visits Authorized [id number] Closed 03/18/2021 03/18/2022 1 1 Encounter Details Date Type Department Care Team Description 03/28/2021 External Division of Micky, Farhana An d Chronic Kidney Disease Stage 5 (HCC) (Primary Dx); Outreach Nephrology and Randal Whitehead Jr., Chronic Kidn ey Disease Stage 5 Glomerular Filtration Rate Less Than 15 (HCC); Hypertension in D.O. Anemia Of Chronic Renal Disease; [address] Hyperparathyroidism Renal Secondary (HCC ); [place], [place] Diabetes Mellitus Type 2 (HC C); [address] [place] [address] Infection Urinary Tract [place], [place] [phone] [address] (Work) [phone] Social History Tobacco Use Types Packs/Day Years Used Date Smoking Tobacco: Never Assessed Sex Assigned at Date Recorded Not on file documented as of this encounter Progress Notes Randal Weeks Jr., D.O. - 03/28/2021 1:30 PM CST Please see scanned in note under document viewer tab for the [facility] outreach visit from this date. DATION ENGINEER documented in this encounter Plan of Treatment [...]
--- OUTSIDE RECORDS SUMMARY | 2021-11-24 16:13 | XMS_ITS | Encounter Summary ---
:1945 Author Organization [facility] Address [address] [place] [address] Care Team Providers Name Role Phone Unavailable Primary Care Provider Unavailable Encounter Details Date Type Department Care Team Description 06/17/2021 Orders Only Division of Nephrology and Jenna Neri A PRN, Hypertension, Mosque C.N.P. [place], in [place], [facility] [address] [place], [place] [address] [facility] [address] [place] [address] [phone] Social History Tobacco Use Types Packs/Day Years [...]
--- OUTSIDE RECORDS SUMMARY | 2021-11-24 16:13 | XMS_ITS | Encounter Summary ---
:1945 Author Organization [facility] Address [address] [place] [address] Care Team Providers Name Role Phone Unavailable Primary Care Provider Unavailable Encounter Details Date Type Department Care Team Description 10/19/2021 Documentation Division of Nephrology and Stoney Shelton, Hypertension in [facility] [address] [facility] [address] [place] [address] [phone] Social History Tobacco Use Types Packs/Day Years [...] arterial pressure during dialysis. She dialyzes at [facility] on a Sunday, and Sunday schedule. DIABETES: DM2: Diet controlled ANTICOAGULATION: None. LABORATORY RESULTS: Current Labs in [facility]. IMPRESSION/REPORT/PLAN SPECIFIC PATIENT INSTRUCTIONS: [facility] at 09:30 am for a 10:30 am procedure. You must have a flask fitter to drive you home due to the [...] to three fourths of the day in [place] for this procedure. There is generally some waiting involved prior to the procedure. Post Access Instructions: Resume your usual dialysis schedule. Appointment scheduled via [place] at Interventional Radiology. Daughter was informed of the above instructions by phone today. She requested a call after 4 pm and a faxed appointment guide has been sent to [place] for secondary review. documented in this encounter Plan of Treatment Scheduled Procedures Name Priority Associated Diagnoses Date/Time PLACEMENT ARTERIOVENOUS GRAFT UPPER Chronic Kidn ey Disease Stage 5 EXTREMITY Glomerular Filtration Rate Less Than 15 (HCC) documented as of this encounter Visit Diagnoses Not on filedocumented in this encounter
--- OUTSIDE RECORDS SUMMARY | 2021-11-24 16:13 | XMS_ITS | Encounter Summary ---
:1945 Author Organization [facility] Address [address] [place] [address] Care Team Providers Name Role Phone Unavailable Primary Care Provider Unavailable Encounter Details Date Type Department Care Team Description 08/17/2021 Orders Only Division of Nephrology and Jenna Neri A PRN, Hypertension, Latter-Day C.N.P. [place], in [place], [facility] [address] [place], [place] [address] [facility] [address] [place] [address] [phone] Social History Tobacco Use Types Packs/Day Years [...]
--- OUTSIDE RECORDS SUMMARY | 2021-11-24 16:13 | XMS_ITS | Encounter Summary ---
:1945 Author Organization [facility] Address [address] [place] [address] Care Team Providers Name Role Phone Unavailable Primary Care Provider Unavailable Encounter Details Date Type Department Care Team Description 07/22/2021 Orders Only Division of Nephrology Randal Weeksension And Chronic Kidney Disease Stage 5 (HCC) (Primary Dx); and Hypertension in Charley Bolden D.O. Anemia Of Chronic Renal Disease [place], [place] [address] [facility] [address] [place] [address] [phone] Social History Tobacco Use Types Packs/Day Years [...]
--- OUTSIDE RECORDS SUMMARY | 2021-11-24 16:13 | XMS_ITS | Encounter Summary ---
:1945 Author Organization [facility] Address [address] [place] [address] Care Team Providers Name Role Phone Unavailable Primary Care Provider Unavailable Reason for Referral Outpatient (Routine) - Closed Specialty Diagnoses / Procedures Referred By Contact Refer red To Contact Diagnoses Chronic Failure Renal End Stage Renal Disease Dialysis Dependent (HCC) Randal Weeks Jr., [facility] Procedures US Upper Extremity Right Dialysis Mapping D.O. 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 [address] [place] [address] Referral ID Status Reason Start Date Expiration Date Visits Requ ested Visits Authorized [id number] Closed 10/17/2021 10/17/2022 1 1 Encounter Details Date Type Department Care Team Description 10/17/2021 Hospital Encounter Department of Micky, Chronic Failure Radiology, Marixa Whitehead Jr., Renal End Stage Building, in [place]O. Renal Disease [place], [place] [address] [facility] Dialysis Dependent [address] [place], [place] (HCC) [place] [phone] Social History Tobacco Use Types Packs/Day Years [...]
--- OUTSIDE RECORDS SUMMARY | 2021-11-24 16:13 | XMS_ITS | Encounter Summary ---
:1945 Author Organization [facility] Address [address] [place] [address] Care Team Providers Name Role Phone Unavailable [...] Type 2 (HCC) Randal Weeks Jr., [facility] Chronic Right Heart Failure (HCC) Apnea Sleep Obstructive Proteinuria D.O. Procedures IR Dialysis / High Flow Catheter Placement 200 [place] [address] Referral ID Status Reason Start Date Expiration Date Visits Requ ested Visits Authorized [id number] Closed 06/07/2021 06/07/2022 1 1 RANCE BUSINESS ANALYST Reason for Visit Appointment Request (Routine) - Closed Specialty Diagnoses / Procedures Referred By Contact Candi arnold To Contact Nephrology and Hypertension Referral ID Status Reason Start Date Expiration Date Visits Requ ested Visits Authorized [id number] Closed 05/20/2021 05/20/2022 1 Encounter Details Date Type Department Care Team Description 06/07/2021 External Division of Micky Chronic Kidney Disease Stage 5 Glomerular Filtration Rate Less Than 15 (HCC) (Primary Dx); Outreach Nephrology and Randal Whitehead Jr., Hypertension And Chronic Kidney Disease Stage 5 (HCC); Hypertension in D.O. Hyperparathyroidism Renal Secondary (HCC ); [address] Diabetes Mellitus Type 2 (HCC); [place], [place] Chronic Right Heart Failure (HCC); [address] [place] [address] Apnea Sleep Obstructive; [place], [place] [phone] Proteinuria [address] (Work) [phone] Social History Tobacco Use Types Packs/Day Years Used Date Smoking Tobacco: Never Assessed Sex Assigned at Date Recorded Not on file documented as of this encounter Progress Notes Randal Weeks Jr., D.O. - 06/07/2021 10:00 AM CST Please see scanned in note under document viewer tab for the [facility] [place] outreach visit from this date. She is [...] been in contact with our colleagues from [facility] in [place], and our social work team, we will [...] a prolonged process up to this point. RANCE BUSINESS ANALYST documented in this encounter Plan of Treatment Scheduled Procedures Name Priority Associated Diagnoses Date/Time PLACEMENT ARTERIOVENOUS GRAFT UPPER Chronic Kidn ey Disease Stage 5 EXTREMITY Glomerular Filtration Rate Less Than 15 (HCC) documented as of this encounter Results IR Dialysis / High Flow Catheter Placement (06/14/2021 12:34 PM INSURANCE BUSINESS ANALYST) Anatomical Region Laterality Modality Body, Vascular Interventional RST LOS, Vascular N/A X-Ray Angiography Interventional ARZ LOS, Vascular Interventional FLA LOS Specimen (Source) Anatomical Collection Method Collection Time Re ceived Time Location / / Volume Laterality 06/14/2021 1:22 PM INSURANCE BUSINESS ANALYST Impressions 06/14/2021 1:27 PM INSURANCE BUSINESS ANALYST Placement of a tunneled right IJ dialysis catheter. Tip at the right atrium. Ready for use. EP Narrative 06/14/2021 1:27 PM INSURANCE BUSINESS ANALYST EXAM: IR DIALYSIS / HIGH FLOW CATHETER [...]
--- OUTSIDE RECORDS SUMMARY | 2021-11-24 16:13 | XMS_ITS | Encounter Summary ---
:1945 Author Organization [facility] Address [address] [place] [address] Care Team Providers Name Role Phone Unavailable Primary Care Provider Unavailable Encounter Details Date Type Department Care Team Description 06/23/2021 Orders Only Division of Nephrology and Jenna Neri A PRN, Hypertension, Jain C.N.P. [place], in [place], [facility] [address] [place], [place] [address] [facility] [address] [place] [address] [phone] Social History Tobacco Use Types Packs/Day Years [...]
--- OUTSIDE RECORDS SUMMARY | 2021-11-24 16:13 | XMS_ITS | Encounter Summary ---
:1945 Author Organization [facility] Address [address] [place] [address] Care Team Providers Name Role Phone Unavailable Primary Care Provider Unavailable Encounter Details Date Type Department Care Team Description 06/15/2021 Orders Only Division of Nephrology and Jenna Neri A PRN, Hypertension, Muslim C.N.P. [place], in [place], [facility] [address] [place], [place] [address] [facility] [address] [place] [address] [phone] Social History Tobacco Use Types Packs/Day Years [...]
--- OUTSIDE RECORDS SUMMARY | 2021-11-24 16:13 | XMS_ITS | Encounter Summary ---
:1945 Author Organization [facility] Address [address] [place] [address] Care Team Providers Name Role Phone Unavailable Primary Care Provider Unavailable Encounter Details Date Type Department Care Team Description 09/06/2021 Orders Only Division of Nephrology and Shlomo Weeks Hypertension in [place], ., D.O. [place] [address] [facility] [facility] [address] [place] [address] [phone] (Wo rk) Social History Tobacco Use Types [...]
--- OUTSIDE RECORDS SUMMARY | 2021-11-24 16:13 | XMS_ITS | Encounter Summary ---
:1945 Author Organization [facility] Address [address] [place] [address] Care Team Providers Name Role Phone Unavailable Primary Care Provider Unavailable Encounter Details Date Type Department Care Team Description 06/07/2021 Documentation Division of Nephrology and Ludmila Reyes R.N. Hypertension in [place], [address] [place], [place] [address] [facility] [address] [place] [address] [phone] Social History Tobacco Use Types Packs/Day Years [...] her daughter [facility] on Sunday06/14/21 at 9:30 am. You must have a facilities director to drive you home due to the [...] to three fourths of the day in [place] for this procedure. There is generally some waiting involved prior to the procedure. Post Access Instructions: Dr. eWeks has been informed of the catheter placement date, he and his team are in communication with the patient regarding the date she is to start dialysis. Appointment scheduled via Interventional Radiology. [employer] documented in this encounter Plan of Treatment Scheduled Procedures Name Priority Associated Diagnoses Date/Time PLACEMENT ARTERIOVENOUS GRAFT UPPER Chronic Kidn ey Disease Stage 5 EXTREMITY Glomerular Filtration Rate Less Than 15 (HCC) documented as of this encounter Visit Diagnoses Not on filedocumented in this encounter
--- OUTSIDE RECORDS SUMMARY | 2021-11-24 16:13 | XMS_ITS | Encounter Summary ---
:1945 Author Organization [facility] Address [address] [place] [address] Care Team Providers Name Role Phone Unavailable Primary Care Provider Unavailable Reason for Referral Outpatient (Routine) - Closed Specialty Diagnoses / Procedures Referred By Contact Refer red To Contact Diagnoses Chronic Failure Renal End Stage Renal Disease Dialysis Dependent (HCC) Randal Weeks Jr., [facility] Procedures US Upper Extremity Right Dialysis Mapping D.O. [address] [place] [address] Referral ID Status Reason Start Date Expiration Date Visits Requ ested Visits Authorized [id number] Closed 10/17/2021 10/17/2022 1 1 Encounter Details Date Type Department Care Team Description 10/17/2021 Orders Only Division of Nephrology Justo Sauer Chro myrna Failure Renal and Hypertension, R.N. End Stage Renal Disease [facility] in [phone] Dialysi s Dependent [place], [place] (Work) ([facility]) (Primary Dx) [address] [place] [address] Social History Tobacco Use Types Packs/Day Years Used Date Smoking Tobacco: Never Assessed Sex Assigned at Date Recorded Not on file documented as of this encounter Plan of Treatment Scheduled Procedures Name Priority Associated Diagnoses Date/Time PLACEMENT ARTERIOVENOUS GRAFT UPPER Chronic Kidn ey Disease Stage 5 EXTREMITY Glomerular Filtration Rate Less Than 15 (HCC) documented as of this encounter Results US Upper Extremity Right [...] Di sease Dialysis Dependent (HCC) - Primary Chronic Failure Renal End Stage Renal Di sease Dialysis Dependent (HCC) documented in this encounter
--- OUTSIDE RECORDS SUMMARY | 2021-11-24 16:13 | XMS_ITS | Encounter Summary ---
:1945 Author Organization [facility] Address [address] [place] [address] Care Team Providers Name Role Phone Unavailable Primary Care Provider Unavailable Encounter Details Date Type Department Care Team Description 2021 Orders Only Division of Nephrology Randal Weeks Kidney Disease and Hypertension in [place] Jr. DTrey Stage 5 Glomerular [place], [place] [address] Filtration Rate Less [address] [place], [place] Than 15 (HCC) ([place] [address] Dx) [address] [phone] Social History Tobacco Use Types Packs/Day Years [...] Tushar Ab, Semi-Quant, S (06/14/2021 11:49 AM MEDICAL VOUCHER CLERK) athologist Signature SARS-CoV-2 Positive 06/14/2021 [facility] Tushar Ab, 5:17 PM MEDICAL VOUCHER CLERK Interp, S Comment: Antibodies to the SARS-CoV-2 [...] Quant, S >250 U/mL 06/14/2021 5:17 PM MEDICAL VOUCHER CLERK [facility] Comment: ----ADDITIONAL INFORMATION---- Testing was performed using the [employer] Anti-SARS- CoV-2 S Reagent assay from [employer], which has received Emergency Use Authorization (EU A) by the U.S. Food and Drug Administration. Fact sheets for this Emergency Use Autho rization (EUA) assay can be found at the following link s: For Healthcare Providers: https://www.fda.gov/media/294407/downloa d For Patients: https://www.fda.gov/media/521839/downloa d Specimen Anatomical Collection Method Collection Time Receive d Time (Source) Location / / Volume Laterality Blood (Blood, 06/14/2021 11:49 06/14/2021 4:40 Venous) AM MEDICAL VOUCHER CLERK PM MEDICAL VOUCHER CLERK Randal Weeks Jr., D.O. LAB MICROBIOLOGY - BLOOD O CORA Performing Organization Address City/[facility]/ZIP Code Phon e Number [facility] [address] DEVON Berrios [place] [address] SUPPORT [facility]ENTER [facility] [place] [address] Laboratory Medicine and Pathology [address] [place] [address] Dr. OSORIO Hepatitis B Surface Antigen (06/14/2021 11:49 AM MEDICAL VOUCHER CLERK) athologist Signature HBs Antigen, S Negative Negative 06/14/2021 [facility] 8:45 PM MEDICAL VOUCHER CLERK Specimen Anatomical Collection Method Collection Time Receive d Time (Source) Location / / Volume Laterality Blood (Blood, 06/14/2021 11:49 06/14/2021 3:27 Venous) AM MEDICAL VOUCHER CLERK PM MEDICAL VOUCHER CLERK Randal Weeks Jr., D.O. LAB MICROBIOLOGY - BLOOD O CORA Performing Organization Address City/[facility]/ZIP Code Phon e Number [facility] [address] DEVON Berrios [place] [address] [address] [facility] [place] [address] Laboratory Medicine and Pathology [address] [place] [address] Dr. OSORIO documented in this encounter Visit Diagnoses Diagnosis Chronic Kidney Disease Stage 5 Glomerula r Filtration Rate Less Than 15 (HCC) - Primary documented in this encounter
--- OUTSIDE RECORDS SUMMARY | 2021-11-24 16:13 | XMS_ITS | Encounter Summary ---
:1945 Author Organization [facility] Address [address] [place] [address] Care Team Providers Name Role Phone Unavailable Primary Care Provider Unavailable Reason for Visit Outpatient (Routine) - Closed Specialty Diagnoses / Procedures Referred By Contact Refer red To Contact Nephrology and Diagnoses Chronic Kidney Disease Stage 5 Glomerular Filtration Rate Less Than 15 (HCC) Anemia Of Chronic Renal Disease Hyperparathyroidism Renal Secondary (HCC) Apnea Sleep Obstructive Randal Weeks [facility] Hypertension / Dialysis , D.OGatito [address] [place] [address] Referral ID Status Reason Start Date Expiration Date Visits Requ ested Visits Authorized [id number] Closed 09/17/2021 09/17/2022 1 1 Encounter Details Date Type Department Care Team Description 10/17/2021 Comprehensive Visit Division of Brea Weeks Jr., D.O. [address] [place] [address] Chronic Kidney Disease Stage 5 Glomerula r Filtration Rate Less Than 15 (HCC) (Primary Dx); Vascular and Kyler Vidal M.B.B.S. [address] [place] [address] Anemia Of Chronic Renal Disease; Endovascular Hyperparathyroi dism Renal Secondary (HCC); Surgery in Apnea Sleep Obs [place], [place] [address] [place] [address] Social History Tobacco Use Types [...]
--- OUTSIDE RECORDS SUMMARY | 2021-11-24 16:13 | XMS_ITS | Encounter Summary ---
:1945 Author Organization [facility] Address [address] [place] [address] Care Team Providers Name Role Phone Unavailable Primary Care Provider Unavailable Reason for Visit Appointment Request (Routine) - Closed Specialty Diagnoses / Procedures Referred By Contact Refer red To Contact Nephrology and Hypertension Referral ID Status Reason Start Date Expiration Date Visits Requ ested Visits Authorized [id number] Closed 03/30/2021 03/30/2022 1 1 Encounter Details Date Type Department Care Team Description 05/02/2021 External Division of Micky, Chronic Kidney Disease Stage 5 Glomerular Filtration Rate Less Than 15 (HCC) (Primary Dx); Outreach Nephrology and Randal Whitehead Jr., Hypertension And Chronic Kidney Disease Stage 5 (HCC); Hypertension in D.O. Osteodystrophy Renal; [address] Anemia Of Chronic Renal Disease; [place], [place] Hyperparathyroidism Renal Se condary (HCC); [address] [place] [address] Diabetes Mellitus Type 2 ([facility]); [place], [place] [phone] Chronic Right Heart Failure ([facility]) [address] (Work) [phone] Social History Tobacco Use Types Packs/Day Years Used Date Smoking Tobacco: Never Assessed Sex Assigned at Date Recorded Not on file documented as of this encounter Progress Notes Randal Weeks Jr., D.O. - 05/02/2021 1:30 PM CST Please see scanned in note under document viewer tab for the [facility] outreach visit from this date. NILE DETENTION OFFICER documented in this encounter Plan of Treatment [...]
--- OUTSIDE RECORDS SUMMARY | 2021-11-24 16:13 | XMS_ITS | Encounter Summary ---
:1945 Author Organization [facility] Address [address] [place] [address] Care Team Providers Name Role Phone Unavailable Primary Care Provider Unavailable Reason for Referral Outpatient (Routine) - Closed Specialty Diagnoses / Procedures Referred By Contact Refer red To Contact Radiology Diagnoses Complication Dialysis Catheter Initial Jenna Neri APRN, C.N.P. [facility] Procedures IR Dialysis / High Flow Catheter Exchange [address] [place], [place] [address] Referral ID Status Reason Start Date Expiration Date Visits Requ ested Visits Authorized [id number] Closed 10/19/2021 10/19/2022 1 1 Reason for Visit Outpatient (Routine) - Closed Specialty Diagnoses / Procedures Referred By Contact Refer red To Contact Radiology Diagnoses Complication Dialysis Catheter Initial Jenna Neri APRN, C.N.P. [facility] Procedures IR Dialysis / High Flow Catheter Exchange [address] [place] [address] Referral ID Status Reason Start Date Expiration Date Visits Requ ested Visits Authorized [id number] Closed 10/19/2021 10/19/2022 1 1 Encounter Details Date Type Department Care Team Description 10/21/2021 Hospital Encounter Department of Jenna Neri Complica tion Dialysis Radiology in [place], C.N.P. Catheter Initial [place], [place] [address] [place] [phone] Social History Tobacco Use Types Packs/Day Years [...] through Care Everywhere.Your High-Flow Central Venous Catheter (Citizen Of [place])documented in this encounter Medications at Time of [...] tunneled dialysis catheter exchange done today in [facility] Condition at Transfer stable OBJECTIVE VITAL SIGNS [...] jugular dialysis catheter exchange done today in [facility] Postprocedure, patient had moderate amount of bleeding to the puncture site, saturating dressing. Dressing removed, hemostatic agents D stat and Quick clot, Hemostasis obtained, to be changed tomorrow at dialysis. Plan: Pt ready for discharge accompanied by her daughter. Follow-up with dialysis as instructed. For any questions or concerns regarding this patient please page Vascular Interventional Radiology SALES EXHIBITOR/PA at [phone] Sunday through Sunday 7 a.m. to 5 p.m. or Vascular Interventional Radiology on-callresident at [phone] after 5 p.m. and on weekends. Mine [...] and dr aped in sterile fashion. Fluoroscopic funeral home makeup artist image demonstrates a tunneled dialysis cathete r in place. Using lidocaine 1% for local anesthesia, blunt dissection was performed freeing the cat heter cuff. Catheter was removed in its entirety over two stiff Glidewires. A 9-Slovak Brite Tip s azul placed, and a [...] and dr aped in sterile fashion. Fluoroscopic funeral home makeup artist image demonstrates a tunneled dialysis cathete r in place. Using lidocaine 1% for local anesthesia, blunt dissection was performed freeing the cat heter cuff. Catheter was removed in its entirety over two stiff Glidewires. A 9-Slovak Brite Tip s azul placed, and a [...] Simeon R.N.)1153 (Given - Provider: Jeannette Simeon R.N.)1216 (Given - Provider: Jeannette Simeon [...]
--- OUTSIDE RECORDS SUMMARY | 2021-11-24 16:13 | XMS_ITS | Encounter Summary ---
:1945 Author Organization [facility] Address [address] [place] [address] Care Team Providers Name Role Phone Unavailable Primary Care Provider Unavailable Encounter Details Date Type Department Care Team Description 10/19/2021 Documentation Division of Nephrology and Jenna Neri APRN, Hypertension, Denominational C.N.P. [place], in [place], [facility] [address] [place], [place] [address] [place] [address] [place] [address] [phone] Social History Tobacco Use Types Packs/Day Years [...] currently being maintained in in-center hemodialysis at [facility] at [place], [place] on a Sunday, and Saturdayschedule. She has medical history includes hypertension, COPD, peripheral arterial disease, chronic right heart failure and diabetes mellitus type 2 (diet control). She is dialyzing through her right IJ tunnel. She is scheduled for AV graft of left brachial artery to axillary vein graft placement by Dr. Vidal at [facility] in [facility] on November 04 2021. She feels [...]
--- OUTSIDE RECORDS SUMMARY | 2021-11-24 16:13 | XMS_ITS | Encounter Summary ---
:1945 Author Organization [facility] Address [address] [place] [address] Care Team Providers Name Role Phone Unavailable Primary Care Provider Unavailable Encounter Details Date Type Department Care Team Description 09/02/2021 Clinical Communication Division of Nephrology Randal Weeks and Hypertension odilia Whitehead Jr., D.O. [place], [place] [address] [place] [address] [phone] Social History Tobacco Use Types Packs/Day Years [...] 3 weeks Preferred Communication Method: Call patient [phone] Patient pharmacy: [id number] [place] [address] [facility] 3 & 5TH?[phone] Additional instructions: documented in this encounter Plan of Treatment Scheduled Procedures Name Priority Associated Diagnoses Date/Time PLACEMENT ARTERIOVENOUS GRAFT UPPER Chronic Kidn ey Disease Stage 5 EXTREMITY Glomerular Filtration Rate Less Than 15 (HCC) documented as of this encounter Visit Diagnoses Not on filedocumented in this encounter
--- OUTSIDE RECORDS SUMMARY | 2021-11-24 16:13 | XMS_ITS | Encounter Summary ---
:1945 Author Organization [facility] Address [address] [place] [address] Care Team Providers Name Role Phone Unavailable Primary Care Provider Unavailable Encounter Details Date Type Department Care Team Description 10/17/2021 Documentation Division of Nephrology and Justo Sauer R.N. Hypertension in [place], ( Work) [place] [address] [place] [address] Social History Tobacco Use Types Packs/Day [...] initiated hemodialysis on 06/15/21. ??She dialyzes at [facility] on a Sunday, and Sunday schedule. Significant [...] with the patient via phone: Hemodialysis Catheters ([id number]), Hemodialysis Fistula and Graft ([id number]). She received an red Save your Vein bracelet. Per Dr. Weeks's note on 06/07/21 We have discussed home dialysis modalities, she is currently not interested in these. ??She is not a transplant candidate. ??All questions were answered. ? Surgeon: Patient seen by Dr. Vidal Plan: ??Left Brachial Axillary AV Graft Surgery: Is scheduled for 11/04/21. Checklist: The Checklist for Surgical Patients ([id number]) was given to the patient with the following instructions: Report to [facility] admissions at the time told to you when you call in the night before. Report fasting after midnight, no am breakfast, but take your am meds with water. Insulin Directions: ??N/A Anticoagulation medications directions: ??N/A COVID-19 Testing: Ordered for [facility] on 10/31/21 BLACK: ??Dr. Weeks and [...]
--- OUTSIDE RECORDS SUMMARY | 2021-11-24 16:13 | XMS_ITS | Encounter Summary ---
:1945 Author Organization [facility] Address [address] [place] [address] Care Team Providers Name Role Phone Unavailable Primary Care Provider Unavailable Encounter Details Date Type Department Care Team Description 07/18/2021 Documentation Division of Nephrology and Dave Weeks Hypertension in [place], , D.O. [place] [address] [facility] [address] [place] [address] [phone] (Wo rk) Social History Tobacco Use Types [...]
--- OUTSIDE RECORDS SUMMARY | 2021-11-24 16:13 | XMS_ITS | Clinical Summary ---
:1945 Author Organization [facility] Address [address] [place] [address] Care Team Providers Name Role Phone Unavailable Primary Care Provider Unavailable Source Comments Patient records contain information from all sites at [facility]. For routine questions regarding patient records, call [phone] during business hours, M-F 8:00 AM - 5:00 PM Central Time. Record requests for emergency care only can be directed to [phone] at any time.[facility] Allergies No known active allergies Medications Medication [...] End Stage Renal Disease Dialysis Depend ent ([facility]) 10/21/2021 Hospital Encounter Radiology Jenna Neri, Complicat ion Dialysis WAREHOUSE DISTRIBUTION SPECIALIST, C.N.P. Catheter Initia l 10/19/2021 Documentation Dialysis Jenna Neri P, WAREHOUSE DISTRIBUTION SPECIALIST, C.N.P. 10/19/2021 Documentation Nephrology and [place], Hypertension Emilia Nguyen, R.NGatito 10/19/2021 Orders Only Dialysis Jenna Neri P, Complication Di alysis WAREHOUSE DISTRIBUTION SPECIALIST, C.N.P. Catheter Initia l (Primary Dx) 10/17/2021 Comprehensive Visit Vascular Surgery Gaby Weeks myrna Kidney Disease Stage 5 Glomerular Filtration Rate Less Than 15 ([facility]) (Primary Dx); Randal Whitehead Jr., Anemia Of Landing Gear Mechanic myrna Renal Disease; D.O. Hyperparathyroidism Renal Secondary ([facility] ); Kyler Vidal, Apnea Sleep Ob structive M.B.B.S. 10/17/2021 Hospital Encounter Radiology Wanda Weeks F ailure Renal Randal Whitehead Jr., End Stage Holley l Disease D.O. Dialysis Depend ent ([facility]) 10/17/2021 Nurse Only Nephrology and Micky, Hypertension Randal Whitehead Jr., D.O. Justo Saeur RShaggy 10/17/2021 Hospital Encounter Radiology Micky, Chronic K idney Disease Stage 5 Glomerular Filtration Rate Less Than 15 (HCC); Randal Whitehead Jr., Anemia Of Landing Gear Mechanic myrna Renal Disease; D.O. Hyperparathyroi dism Renal Secondary (HCC); Apnea Sleep Obs tructive 10/17/2021 Documentation Nephrology and Justo Sauer A, Hypertension R.N. 10/17/2021 Orders Only Nephrology and SauerJusto husain A, Chronic Fail ure Renal Hypertension R.N. End Stage Renal Disease Dialysis Depend ent ([facility]) (Primary Dx) 10/17/2021 Orders Only Radiology Tiffanie Reynoso, WAREHOUSE DISTRIBUTION SPECIALIST, C.N.P. 10/17/2021 Orders Only Dialysis Sauer, Justo A, Chronic Failur e Renal R.N. End Stage Renal Disease Dialysis Depend ent ([facility]) (Primary Dx) 09/19/2021 Orders Only Nephrology and Stuve, Chronic Failu re Renal Hypertension Emilia M, End Stage Renal Disease R.N. Dialysis Depend ent ([facility]) (Primary Dx) 09/17/2021 Orders Only Nephrology and [place], Chronic Kidne y Disease Stage 5 Glomerular Filtration Rate Less Than 15 ([facility]) (Primary Dx); Hypertension Randal Whitehead Jr., Anemia Of Landing Gear Mechanic myrna Renal Disease; D.O. Hyperparathyroi dism Renal Secondary (HCC); Apnea Sleep Obs tructive 09/06/2021 Orders Only Nephrology and [place], Hypertension Randal Whitehead Jr., D.O. 09/02/2021 Orders Only Dialysis Jenna Neri, WAREHOUSE DISTRIBUTION SPECIALIST, C.N.P. 09/02/2021 Clinical Nephrology and [place], Communication Hypertension Randal Whitehead Jr., D.O. from Last 3 Months Social History Tobacco [...] 01/20/2020, 01/16/2019, Additional history exists Potassium Level 11/19/2022 11/19/2021, 11/13/2021, 12/08/2019, Additional history exists DTaP,Tdap,and Td Vaccines (2 [...] 2, PCR, V (11/02/2021 11:08 AM CDT) [facility] Method Time Signature SARS-Coronavi Undetected Undetected 11/02/2021 [facility] vanessa-2, PCR 2:48 PM CDT Comment: SARS-CoV-2 RNA absent. ?? ----ADDITIONAL INFORMATION---- This RT-PCR test using the Xpert Xpress SARS-CoV-2/Flu/RSV assay ([employer] performed on the [place] [employer] rt DX systems has received Emergency Use Authorization (EU A) by the U.S. Food and Drug Administration. Performanc e characteristics were verified by [facility] inic in a manner consistent with CLIA requirements . Fact sheets for this Emergency Use Autho rization (EUA) assay can be found at the following link s: For Healthcare Providers: https://www.fda.gov/media/723863/downloa d For Patients: https://www.fda.gov/media/236364/downloa d Specimen Source Nasopharyngeal Swab 11/02/2021 1:3 0 PM CDT [facility] Specimen Anatomical Collection Method Collection Time Receive d Time (Source) Location / / Volume Laterality Varies 11/02/2021 11:08 11/02/2021 1:30 AM CDT PM CDT Kyler Ibarra LAB MICROBIOLOGY - GENERAL O RDERABLES Performing Organization Address City/State/ZIP Code Phon e Number [facility] [address] [place] [address] [facility] [place] [address] System in [place] [address] IR Dialysis / High [...] and dr aped in sterile fashion. Fluoroscopic supervisor communications and signals image demonstrates a tunneled dialysis cathete r in place. Using lidocaine 1% for local anesthesia, blunt dissection was performed freeing the cat heter cuff. Catheter was removed in its entirety over two stiff Glidewires. A 9-Lebanese Brite Tip s azul placed, and a [...] and dr aped in sterile fashion. Fluoroscopic supervisor communications and signals image demonstrates a tunneled dialysis cathete r in place. Using lidocaine 1% for local anesthesia, blunt dissection was performed freeing the cat heter cuff. Catheter was removed in its entirety over two stiff Glidewires. A 9-Lebanese Brite Tip s azul placed, and a [...] described in the body of the report. Tom Neely Jr.O. IMG US PROCEDURES CHEST, 2V-Outside Chest Xray [...] Effective Dates Phone Addre ss Type Group [facility] [id number] 2021-Present [phone] [address] [place] [address]
--- OUTSIDE RECORDS SUMMARY | 2021-11-24 16:13 | XMS_ITS | Encounter Summary ---
:1945 Author Organization [facility] Address [address] [place] [address] Care Team Providers Name Role Phone Unavailable Primary Care Provider Unavailable Reason for Referral Outpatient (Routine) - Closed Specialty Diagnoses / Procedures Referred By Contact Refer red To Contact Diagnoses Chronic Kidney Disease Stage 5 Glomerular Filtration Rate Less Than 15 (HCC) Anemia Of Chronic Renal Disease Hyperparathyroidism Renal Secondary (HCC) Apnea Sleep Obstructive Randal Weeks Jr., [facility] Procedures US Upper Extremity Left Dialysis Mapping D.O. [address] [place], [place] [address] Referral ID Status Reason Start Date Expiration Date Visits Requ ested Visits Authorized [id number] Closed 09/17/2021 09/17/2022 1 1 Reason for Visit Outpatient (Routine) - Closed Specialty Diagnoses / Procedures Referred By Contact Refer red To Contact Diagnoses Chronic Kidney Disease Stage 5 Glomerular Filtration Rate Less Than 15 (HCC) Anemia Of Chronic Renal Disease Hyperparathyroidism Renal Secondary (HCC) Apnea Sleep Obstructive Randal Weeks Jr., [facility] Procedures US Upper Extremity Left Dialysis Mapping D.O. [address] [place], [place] [address] Referral ID Status Reason Start Date Expiration Date Visits Requ ested Visits Authorized [id number] Closed 09/17/2021 09/17/2022 1 1 Encounter Details Date Type Department Care Team Description 10/17/2021 Hospital Department of Micky, Chronic Kidney Disease Stage 5 Glomerular Filtration Rate Less Than 15 (HCC); Encounter Radiology, Marixa Whitehead Jr., Anemia Of Chronic Renal Disease; Building, in [place].O. Hyperparathyroidism Renal Secondary (HCC ); [place], [address] [facility] Apnea Sleep Obstructive [place], [place] [address] [facility] [address] [place], [place] [phone] (Work) [phone] Social History Tobacco Use Types Packs/Day Years [...]
--- OUTSIDE RECORDS SUMMARY | 2021-11-24 16:13 | XMS_ITS | Encounter Summary ---
:1945 Author Organization [facility] Address [address] [place] [address] Care Team Providers Name Role Phone Unavailable Primary Care Provider Unavailable Encounter Details Date Type Department Care Team Description 10/17/2021 Orders Only Department of Radiology in [place], [place] TAX COMPLIANCE MANAGER, C.N.P. [address] [facility] [address] [place] [address] [place], [place] [phone] (Wo rk) Social History Tobacco Use Types [...]
--- OUTSIDE RECORDS SUMMARY | 2021-11-24 16:13 | XMS_ITS | Encounter Summary ---
:1945 Author Organization [facility] Address [address] [place] [address] Care Team Providers Name Role Phone Unavailable Primary Care Provider Unavailable Encounter Details Date Type Department Care Team Description 08/01/2021 Orders Only Department of Nephrology in [facility] Dave Whitehead Jr.[place], [place] D.O. [address] [place] [address] [place], [place] [phone] (Wo rk) Social History Tobacco Use Types [...]
--- OUTSIDE RECORDS SUMMARY | 2021-11-24 16:13 | XMS_ITS | Encounter Summary ---
:1945 Author Organization [facility] Address [address] [place] [address] Care Team Providers Name Role Phone Unavailable Primary Care Provider Unavailable Reason for Referral Medication Prior Authorization - Closed Specialty Diagnoses / Procedures Referred By Contact Refer red To Contact Jenna Neri APRN, C .N.P. [address] [place] [phone] Referral ID Status Reason Start Date Expiration Date Visits Requ ested Visits Authorized [id number] Closed 1 1 Encounter Details Date Type Department Care Team Description 09/02/2021 Orders Only Division of Nephrology and Jenna Neri A PRN, Hypertension, Yazidism C.N.P. [place], in [place], [address] [place] [address] [place] [address] [place] [address] [phone] Social History Tobacco Use Types Packs/Day Years [...]
--- OUTSIDE RECORDS SUMMARY | 2021-11-24 16:13 | XMS_ITS | Encounter Summary ---
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 Stage Renal Disease [place] 200 [facility] Dialysis Dependent (HCC) [address] [place] [address] [phone] (Wo rk) Social History Tobacco Use Types [...] 2, PCR, V (11/02/2021 11:08 AM CDT) [facility] Method Time Signature SARS-Coronavi Undetected Undetected 11/02/2021 [facility] vanessa-2, PCR 2:48 PM CDT Comment: SARS-CoV-2 RNA absent. ?? ----ADDITIONAL INFORMATION---- This RT-PCR test using the Xpert Xpress SARS-CoV-2/Flu/RSV assay ([employer] performed on the [employer] rt DX systems has received Emergency Use Authorization (EU A) by the U.S. Food and Drug Administration. Performanc e characteristics were verified by [facility] inic in a manner consistent with CLIA requirements . Fact sheets for this Emergency Use Autho rization (EUA) assay can be found at the following link s: For Healthcare Providers: https://www.fda.gov/media/380201/downloa d For Patients: https://www.fda.gov/media/070596/downloa d Specimen Source Nasopharyngeal Swab 11/02/2021 1:3 0 PM CDT [facility] Specimen Anatomical Collection Method Collection Time Receive d Time (Source) Location / / Volume Laterality Varies 11/02/2021 11:08 11/02/2021 1:30 AM CDT PM CDT Kyler Ibarra LAB MICROBIOLOGY - GENERAL O RDERABLES Performing Organization Address City/State/ZIP Code Phon e Number [facility] [address] [place] [address] [place] [address] System in [place] [address] documented in this encounter Visit Diagnoses Diagnosis Chronic Failure Renal End Stage Renal Di sease Dialysis Dependent (HCC) documented in this encounter Additional Health Concerns Infection Onset Date Last Indicated Resolved Time COVID19 Pending 11/01/2021 11/02/2021 11/02/2021 1:30 PM CDT documented as of this encounter
--- OUTSIDE RECORDS SUMMARY | 2021-11-24 16:14 | XMS_ITS | Encounter Summary ---
:1945 Author Organization [facility] Address [address] [place] [address] Care Team Providers Name Role Phone Unavailable Primary Care Provider Unavailable Reason for Visit Reason Comments steroid injection tomorrow Encounter Details Date Type Department Care Team Description 01/12/2020 Clinical Division of yolande Weeksi on Communication Nephrology and Randal Whitehead Jr., tomorrow Hypertension in D.O. [place], [place] [address] [facility] [address] [place] [address] [phone] Social History Tobacco Use Types Packs/Day Years [...] medications she's on. Please call her at [phone]. Thanks documented in this encounter Plan of Treatment Scheduled Procedures Name Priority Associated Diagnoses Date/Time PLACEMENT ARTERIOVENOUS GRAFT UPPER Chronic Kidn ey Disease Stage 5 EXTREMITY Glomerular Filtration Rate Less Than 15 (HCC) documented as of this encounter Visit Diagnoses Not on filedocumented in this encounter
--- OUTSIDE RECORDS SUMMARY | 2021-11-24 16:14 | XMS_ITS | Encounter Summary ---
:1945 Author Organization [facility] Address [address] [place] [address] Care Team Providers Name Role Phone Unavailable Primary Care Provider Unavailable Reason for Visit Appointment Request (Routine) - Closed Specialty Diagnoses / Procedures Referred By Contact Refer red To Contact Nephrology and Hypertension Referral ID Status Reason Start Date Expiration Date Visits Requ ested Visits Authorized [id number] Closed 02/11/2020 02/10/2021 1 1 Encounter Details Date Type Department Care Team Description 02/18/2020 External Outreach Division of Wnada Weeks Ki dney Disease Stage 5 Glomerular Filtration Rate Less Than 15 (HCC) (Primary Dx); Nephrology and Randal Whitehead Jr., Hypertension And Chronic Kidney Disease Stage 5 (HCC); Hypertension in D.O. Anemia Of Chronic Renal Disease; [place], [place] [address] [facility] Osteodystrophy Renal; [address] [place], [place] Diabetes Mellitus Type 2 (HC C); [place] [address] Chronic Right Heart Failure (HCC); [phone] Proteinuria Social History Tobacco Use Types Packs/Day Years Used Date Smoking Tobacco: Never Assessed Sex Assigned at Date Recorded Not on file documented as of this encounter Progress Notes Randal Weeks Jr., D.O. - 02/18/2020 12:00 PM CST Please see scanned in note under document viewer tab for the [facility] [place] outreach visit from this date. 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
--- OUTSIDE RECORDS SUMMARY | 2021-11-24 16:14 | XMS_ITS | Encounter Summary ---
:1945 Author Organization [facility] Address [address] [place] [address] Care Team Providers Name Role Phone Unavailable Primary Care Provider Unavailable Reason for Visit Appointment Request (Routine) - Closed Specialty Diagnoses / Procedures Referred By Contact Refer red To Contact Nephrology and Hypertension Referral ID Status Reason Start Date Expiration Date Visits Requ ested Visits Authorized [id number] Closed 02/26/2020 02/25/2021 1 1 Encounter Details Date Type Department Care Team Description 03/22/2020 External Outreach Division of Wanda Weeks Ki dney Disease Stage 5 Glomerular Filtration Rate Less Than 15 (HCC) (Primary Dx); Nephrology and Randal Whitehead Jr., Hypertension And Chronic Kidney Disease Stage 5 (HCC); Hypertension in [place]. Anemia Of Chronic Renal Disease; [place], [place] [address] [facility] Osteodystrophy Renal; [address] [place], [place] Diabetes Mellitus Type 2 (HC C); [place] [address] Proteinuria; [phone] Chronic Right Heart Failure (HCC) Social History Tobacco Use Types Packs/Day Years Used Date Smoking Tobacco: Never Assessed Sex Assigned at Date Recorded Not on file documented as of this encounter Progress Notes Randal Weeks Jr., D.O. - 03/22/2020 3:30 PM CST Please see scanned in note under document viewer tab for the [facility] [place] outreach visit from this date. HING FELLOW documented in this encounter Plan of Treatment [...]
--- OUTSIDE RECORDS SUMMARY | 2021-11-24 16:14 | XMS_ITS | Encounter Summary ---
:1945 Author Organization [facility] Address [address] [place] [address] Care Team Providers Name Role Phone Unavailable Primary Care Provider Unavailable Encounter Details Date Type Department Care Team Description 07/22/2020 Orders Only Division of Nephrology and Shlomo Weeks Hypertension in [place], ., D.O. [place] [address] [facility] [address] [place] [address] [phone] (Wo rk) Social History Tobacco Use Types [...]
--- OUTSIDE RECORDS SUMMARY | 2021-11-24 16:14 | XMS_ITS | Encounter Summary ---
:1945 Author Organization [facility] Address [address] [place] [address] Care Team Providers Name Role Phone Unavailable Primary Care Provider Unavailable Reason for Visit Appointment Request (Routine) - Closed Specialty Diagnoses / Procedures Referred By Contact Refer red To Contact Nephrology and Hypertension Referral ID Status Reason Start Date Expiration Date Visits Requ ested Visits Authorized [id number] Closed 02/11/2021 02/11/2022 1 1 Encounter Details Date Type Department Care Team Description 02/28/2021 External Division of Micky, Chronic Kidney Disease Stage 5 Glomerular Filtration Rate Less Than 15 (HCC) (Primary Dx); Outreach Nephrology and Randal Whitehead Jr., Hypertension And Chronic Kidney Disease Stage 5 (HCC); Hypertension in D.O. Anemia Of Chronic Renal Disease; [address] Osteodystrophy Renal; [place], [place] Diabetes Mellitus Type 2 (HC C); [address] [facility] [address] Hyperparathyroidism Renal Secondary (HCC ); [place], [place] [phone] Chronic Right Heart Failure (HCC); [address] (Work) Apnea Sleep Obstructive [phone] Social History Tobacco Use Types Packs/Day Years Used Date Smoking Tobacco: Never Assessed Sex Assigned at Date Recorded Not on file documented as of this encounter Progress Notes Randal Weeks Jr., D.O. - 02/28/2021 4:00 PM CST Please see scanned in note under document viewer tab for the [facility] [place] outreach visit from this date. She is [...] work team soon to plan fordialysis initiation. 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
--- OUTSIDE RECORDS SUMMARY | 2021-11-24 16:14 | XMS_ITS | Encounter Summary ---
:1945 Author Organization [facility] Address [address] [place] [address] Care Team Providers Name Role Phone Unavailable Primary Care Provider Unavailable Reason for Visit Reason Comments UA positive for bacteria Encounter Details Date Type Department Care Team Description 11/08/2020 Clinical Division of Micky, UA positive for Communication Nephrology and Randal Whitehead Jr., bacteria Hypertension in D[place]O. [place], [place] [address] [facility] [address] [place] [address] [phone] Social History Tobacco Use Types Packs/Day Years Used Date Smoking Tobacco: Never Assessed Sex Assigned at Date Recorded Not on file documented as of this encounter Miscellaneous Notes Telephone Encounter - Yanet Conteh - 11/08/2020 9:06 AM CDT Irma (patient's daughter) from the [place] lab called. She saw the test results that came through on patient's UA, and it is 2 + for bacteria. She is wondering if you would like to do a urine culture. You are scheduled to see patient on Sunday, and Irma said you could contact her at the lab at [phone] to order that. She also thought it [...]
--- OUTSIDE RECORDS SUMMARY | 2021-11-24 16:14 | XMS_ITS | Encounter Summary ---
:1945 Author Organization [facility] Address [address] [place] [address] Care Team Providers Name Role Phone Unavailable Primary Care Provider Unavailable Encounter Details Date Type Department Care Team Description 07/22/2020 Clinical Communication Division of Nephrology Randal Weeks and Hypertension odilia Whitehead Jr., D.O. [address] [place] [address] [phone] Social History Tobacco Use Types Packs/Day Years Used Date Smoking Tobacco: Never Assessed Sex Assigned at Date Recorded Not on file documented as of this encounter Miscellaneous Notes Telephone Encounter - Randal Weeks Jr., D.O. - 07/22/2020 5:43 PM CDT Email documentation == See the [place] [facility] documentation. Thanks Angela can you call them as below--I???ll send in the RX Randal Weeks Jr., D.O. [facility] Division of Nephrology and Hypertension hospital chief executive officer [facility]: [phone] [email or web address] [address] [place] [address] [email or web address] From: Rachel Herr) - [facility] <[email or web address]> Sent: July 10:11 AM To: Randal Weeks Jr., D.O. <[email or web address]> Subject: [EXTERNAL] Jael Berry (41) Hi - [...] scheduled for follow up with you at [facility] 08/02. ~Angela documented in this encounter Plan of Treatment Scheduled Procedures Name Priority Associated Diagnoses Date/Time PLACEMENT ARTERIOVENOUS GRAFT UPPER Chronic Kidn ey Disease Stage 5 EXTREMITY Glomerular Filtration Rate Less Than 15 (HCC) documented as of this encounter Visit Diagnoses Not on filedocumented in this encounter
--- OUTSIDE RECORDS SUMMARY | 2021-11-24 16:14 | XMS_ITS | Encounter Summary ---
:1945 Author Organization [facility] Address [address] [place] [address] Care Team Providers Name Role Phone Unavailable Primary Care Provider Unavailable Encounter Details Date Type Department Care Team Description 11/10/2020 Orders Only Division of Nephrology and Shlomo Weeks Hypertension in [place], ., D.O. [place] [address] [facility] [address] [place] [address] [phone] (Wo rk) Social History Tobacco Use Types [...]
--- OUTSIDE RECORDS SUMMARY | 2021-11-24 16:14 | XMS_ITS | Encounter Summary ---
:1945 Author Organization [facility] Address [address] [place] [address] Care Team Providers Name Role Phone Unavailable Primary Care Provider Unavailable Reason for Visit Appointment Request (Routine) - Closed Specialty Diagnoses / Procedures Referred By Contact Refer red To Contact Nephrology and Hypertension Referral ID Status Reason Start Date Expiration Date Visits Requ ested Visits Authorized [id number] Closed 11/18/2020 11/18/2021 1 1 Encounter Details Date Type Department Care Team Description 12/08/2020 External Outreach Division of Wanda Weeks Ki dney Disease Stage 5 Glomerular Filtration Rate Less Than 15 (HCC) (Primary Dx); Nephrology and Randal Whitehead Jr., Hypertension And Chronic Kidney Disease Stage 5 (HCC); Hypertension in D.O. Anemia Of Chronic Renal Disease; [place], [place] [address] [facility] Osteodystrophy Renal; [address] [place], [place] Diabetes Mellitus Type 2 (HC C); [place] [address] Apnea Sleep Obstructive [address] [phone] Social History Tobacco Use Types Packs/Day Years Used Date Smoking Tobacco: Never Assessed Sex Assigned at Date Recorded Not on file documented as of this encounter Progress Notes Randal Weeks Jr., D.O. - 12/08/2020 11:00 AM CDT Please see scanned in note under document viewer tab for the [facility] [place] outreach visit from this date. documented in [...]
--- OUTSIDE RECORDS SUMMARY | 2021-11-24 16:14 | XMS_ITS | Encounter Summary ---
:1945 Author Organization [facility] Address [address] [place] [address] Care Team Providers Name Role Phone Unavailable Primary Care Provider Unavailable Reason for Visit Appointment Request (Routine) - Closed Specialty Diagnoses / Procedures Referred By Contact Refer red To Contact Nephrology and Hypertension Referral ID Status Reason Start Date Expiration Date Visits Requ ested Visits Authorized [id number] Closed 01/07/2021 01/07/2022 1 1 Encounter Details Date Type Department Care Team Description 01/17/2021 External Division of Micky, Farhana An d Chronic Kidney Disease Stage 5 (HCC) (Primary Dx); Outreach Nephrology and Randal Whitehead Jr., Chronic Kidn ey Disease Stage 5 Glomerular Filtration Rate Less Than 15 (HCC); Hypertension in D.O. Anemia Of Chronic Renal Disease; [address] Diabetes Mellitus Type 2 ([facility]); [place], [place] Hyperparathyroidism Renal Se condary ([facility]); [address] [place] [phone] Apnea Sleep Obstructive; [place], [place] [phone] Chronic Right Heart Failure ([facility]) [address] (Work) [phone] Social History Tobacco Use Types Packs/Day Years Used Date Smoking Tobacco: Never Assessed Sex Assigned at Date Recorded Not on file documented as of this encounter Progress Notes Randal Weeks Jr., D.O. - 01/17/2021 2:00 PM CDT Please see scanned in note under document viewer tab for the [facility] [place] outreach visit from this date. documented in [...]
--- OUTSIDE RECORDS SUMMARY | 2021-11-24 16:14 | XMS_ITS | Encounter Summary ---
:1945 Author Organization [facility] Address [address] [place] [address] Care Team Providers Name Role Phone Unavailable Primary Care Provider Unavailable Reason for Visit Appointment Request (Routine) - Closed Specialty Diagnoses / Procedures Referred By Contact Refer red To Contact Nephrology and Hypertension Referral ID Status Reason Start Date Expiration Date Visits Requ ested Visits Authorized [id number] Closed 01/15/2020 01/14/2021 1 1 Encounter Details Date Type Department Care Team Description 01/20/2020 External Outreach Division of Wanda Weeks dney Disease Stage 4 Glomerular Filtration Rate 15-29 (HCC) (Primary Dx); Nephrology and Randal Whitehead Jr., Hypertension And Chronic Kidney Disease Stage 4 (HCC); Hypertension in D.O. Proteinuria; [place], [place] [address] [facility] Diabetes Mellitus Type 2 (HCC); [address] [place], [place] Chronic Right Heart Failure (HCC) [place] [address] [phone] Social History Tobacco Use Types Packs/Day Years Used Date Smoking Tobacco: Never Assessed Sex Assigned at Date Recorded Not on file documented as of this encounter Progress Notes Randal Weeks Jr., D.O. - 01/20/2020 3:00 PM CDT Please see scanned in note under document viewer tab for the [facility] [place] outreach visit from this date. documented in [...]
--- OUTSIDE RECORDS SUMMARY | 2021-11-24 16:14 | XMS_ITS | Encounter Summary ---
:1945 Author Organization [facility] Address [address] [place] [address] Care Team Providers Name Role Phone Unavailable Primary Care Provider Unavailable Reason for Visit Appointment Request (Routine) - Closed Specialty Diagnoses / Procedures Referred By Contact Refer red To Contact Nephrology and Hypertension Referral ID Status Reason Start Date Expiration Date Visits Requ ested Visits Authorized [id number] Closed 03/31/2020 03/31/2021 1 1 Encounter Details Date Type Department Care Team Description 04/28/2020 External Outreach Division of Reina Weeks on And Chronic Kidney Disease Stage 5 (HCC) (Primary Dx); Nephrology and Randal Whitehead Jr., Chronic Kidn ey Disease Stage 5 Glomerular Filtration Rate Less Than 15 (HCC); Hypertension in D.O. Anemia Of Chronic Renal Disease; [place], [place] [address] [facility] Osteodystrophy Renal; [address] [place], [place] Diabetes Mellitus Type 2 (HC C); [place] [address] Chronic Right Heart Failure (HCC) [address] [phone] Social History Tobacco Use Types Packs/Day Years Used Date Smoking Tobacco: Never Assessed Sex Assigned at Date Recorded Not on file documented as of this encounter Progress Notes Randal Weeks Jr., D.O. - 04/28/2020 3:00 PM CST Please see scanned in note under document viewer tab for the [facility] [place] outreach visit from this date. 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
--- OUTSIDE RECORDS SUMMARY | 2021-11-24 16:14 | XMS_ITS | Encounter Summary ---
:1945 Author Organization [facility] Address [address] [place] [address] Care Team Providers Name Role Phone Unavailable Primary Care Provider Unavailable Reason for Visit Appointment Request (Routine) - Closed Specialty Diagnoses / Procedures Referred By Contact Refer red To Contact Nephrology and Eusebia Whitaker M.D. Hypertension [address] [place] [address] Referral ID Status Reason Start Date Expiration Date Visits Requ ested Visits Authorized [id number] Closed 12/25/2019 12/24/2020 1 1 Encounter Details Date Type Department Care Team Description 01/07/2020 External Outreach Division of Reina Weeks And Chronic Kidney Disease Stage 4 (HCC) (Primary Dx); Nephrology and Randal Whitehead Jr., Chronic Kidn ey Disease Stage 4 Glomerular Filtration Rate 15-29 (HCC); Hypertension in D.O. Anemia Of Chronic Renal Disease; [place], [place] [address] [facility] Osteodystrophy Renal; [address] [place], [place] Diabetes Mellitus Type 2 (HC C); [place] [address] Chronic Right Heart Failure (HCC); [address] Proteinuria Social History Tobacco Use Types Packs/Day Years Used Date Smoking Tobacco: Never Assessed Sex Assigned at Date Recorded Not on file documented as of this encounter Consult Notes Randal Weeks Jr., D.O. - 01/07/2020 11:00 AM CDT Please see scanned in note under document viewer tab for the [facility] [place] outreach visit from this date. documented in [...]
--- OUTSIDE RECORDS SUMMARY | 2021-11-24 16:14 | XMS_ITS | Encounter Summary ---
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 Anemia Of Chronic Renal Disease; [place], [place] [address] [facility] Osteodystrophy Renal; [address] [place], [place] Diabetes Mellitus Type 2 (HC C); [place] [address] Infection Urinary Tract [address] [phone] Social History Tobacco Use Types Packs/Day Years Used Date Smoking Tobacco: Never Assessed Sex Assigned at Date Recorded Not on file documented as of this encounter Progress Notes Randal Weeks Jr., D.O. - 06/09/2020 3:00 PM CST Please see scanned in note under document viewer tab for the [facility] [place] outreach visit from this date. T SUPERVISOR documented in this encounter Plan of Treatment [...]
--- OUTSIDE RECORDS SUMMARY | 2021-11-24 16:14 | XMS_ITS | Encounter Summary ---
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 Anemia Of Chronic Renal Disease; [place], [place] [address] [facility] Osteodystrophy Renal; [address] [place], [place] Diabetes Mellitus Type 2 (HC C) [place] [address] [phone] Social History Tobacco Use Types Packs/Day Years Used Date Smoking Tobacco: Never Assessed Sex Assigned at Date Recorded Not on file documented as of this encounter Progress Notes Randal Weeks Jr., D.O. - 11/10/2020 11:00 AM CDT Please see scanned in note under document viewer tab for the [facility] [place] outreach visit from this date. documented in [...]
--- OUTSIDE RECORDS SUMMARY | 2021-11-24 16:14 | XMS_ITS | Encounter Summary ---
:1945 Author Organization [facility] Address [address] [place] [address] Care Team Providers Name Role Phone Unavailable Primary Care Provider Unavailable Encounter Details Date Type Department Care Team Description 06/10/2020 Orders Only Division of Nephrology and Shlomo Weeks Hypertension in [place], ., D.O. [place] [address] [facility] [address] [place] [address] [phone] (Wo rk) Social History Tobacco Use Types [...]
--- OUTSIDE RECORDS SUMMARY | 2021-11-24 16:14 | XMS_ITS | Encounter Summary ---
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 Anemia Of Chronic Renal Disease; [place], [place] [address] [facility] Osteodystrophy Renal; [address] [place], [place] Diabetes Mellitus Type 2 (HC C); [place] [address] Apnea Sleep Obstructive; [address] Proteinuria Social History Tobacco Use Types Packs/Day Years Used Date Smoking Tobacco: Never Assessed Sex Assigned at Date Recorded Not on file documented as of this encounter Progress Notes Randal Weeks Jr., D.O. - 08/02/2020 3:00 PM CDT Please see scanned in note under document viewer tab for the [facility] [place] outreach visit from this date. documented in [...]
--- OUTSIDE RECORDS SUMMARY | 2021-11-24 16:14 | XMS_ITS | Encounter Summary ---
:1945 Author Organization [facility] Address [address] [place] [address] Care Team Providers Name Role Phone Unavailable Primary Care Provider Unavailable Encounter Details Date Type Department Care Team Description 01/12/2020 Clinical Communication Division of Nephrology Randal Weeks and Hypertension odilia Whitehead Jr., D.O. [place], [place] [address] [facility] [address] [place] [address] [phone] Social History Tobacco Use Types Packs/Day Years [...]
--- OUTSIDE RECORDS SUMMARY | 2021-11-24 16:14 | XMS_ITS | Encounter Summary ---
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 Anemia Of Chronic Renal Disease; [place], [place] [address] [facility] Osteodystrophy Renal; [address] [place], [place] Diabetes Mellitus Type 2 (HC C); [place] [address] Chronic Right Heart Failure (HCC); [id number] Proteinuria Social History Tobacco Use Types Packs/Day Years Used Date Smoking Tobacco: Never Assessed Sex Assigned at Date Recorded Not on file documented as of this encounter Progress Notes Randal Weeks Jr., D.O. - 09/08/2020 4:30 PM CDT Please see scanned in note under document viewer tab for the [facility] [place] outreach visit from this date. documented in [...]
--- OUTSIDE RECORDS SUMMARY | 2021-11-24 16:15 | XMS_ITS | Encounter Summary ---
:1945 Author Organization [facility] Address [facility] [place] [address] Care Team Providers Name Role Phone Unavailable Primary Care Provider Unavailable Encounter Details Date Type Department Care Team Description 09/04/2019 Orders Only [facility] Audi Maurer MD Encounter for Nephrology Clinic [employer] salima almazan for other [facility] viral diseases [address] [facility] [address] [place] (Primary Dx) [place], [place] [address] [place], [place] [phone] (Wo rk) Social History Tobacco Use Types Packs/Day Years Used Date Never Assessed Sex Assigned at Date Recorded Not on file documented as of this encounter Plan of Treatment Not on filedocumented as of this encounter Results Asymptomatic COVID-19 Virus (Coronavirus) by PCR (09/29/2019 4:05 PM CDT) [facility] Method Time Signature COVID-19 Nasopharyngeal 09/29/2019 [facility] Virus PCR to 4:[address] [facility] Source [facility] COVID-19 Not Detected 09/30/2019 [facility] Virus PCR to 1:10 PM CDT [facility] - GENOMICS Result CENTER [facility] Comment: Collection [...] N1,N2 gene targets of CoV2 and human [employer] as an internal control. A negative result [...] (Centers for Disease Control) Testing performed by [facility], Room 1-210, [address] [place] [id number]. T his test was developed and its performance characteristics determined b y the [facility]. It has not been cleared or appr [...] Organization Address City/State/ZIP Code Phon e Number [address] [address] [facility] Room: 1-210 [facility] [address] [place], [place] [address] [place] documented in this encounter Visit Diagnoses Diagnosis Encounter for screening for other viral diseases - Primary documented in this encounter
--- OUTSIDE RECORDS SUMMARY | 2021-11-24 16:15 | XMS_ITS | Encounter Summary ---
:1945 Author Organization [place] Address [facility] [place] [address] Care Team Providers Name Role Phone Eusebia [...] on filedocumented in this encounter Care Teams Hot Strip Finisher Relationship Specialty Start Date End Date Eusebia Whitaker PCP - General Family Practice 09/25/19 [facility] [address] [place] [address] documented as of this encounter
--- OUTSIDE RECORDS SUMMARY | 2021-11-24 16:15 | XMS_ITS | Encounter Summary ---
:1945 Author Organization [facility] Address [address] [place] [address]. [place] [address] Care Team Providers Name Role Phone Eusebia Whitaker Primary Care Provider Reason for Visit Diagnostic Imaging Ultrasound (Routine) - Closed Specialty Diagnoses / Procedures Referred By Contact Refer red To Contact Diagnoses Chronic kidney disease, stage III (moderate) (H) Proteinuria, unspecified type Audi Maurer MD Procedures US Biopsy Renal [employer] [address] [place] [address] Referral ID Status Reason Start Date Expiration Date Visits Requ ested Visits Authorized [id number] Closed 09/04/2019 09/03/2020 1 1 Encounter Details Date Type Department Care Team Description 10/01/2019 [facility] Audi Maurer MD [place] [address] [facility] [address] [place] [id number] Chronic kidney disease, stage III (moder ate) (H); Encounter [facility] Non-Fv Credentialed Provider, Radiology Proteinuria, unspecified type [address] [place] [phone] Social History Tobacco Use Types Packs/Day Years [...] type documented in this encounter Care Teams Customer Advocate Relationship Specialty Start Date End Date Eusebia Whitaker PCP - General Family Practice 09/25/19 [facility] [address] [place] [address] documented as of this encounter
--- OUTSIDE RECORDS SUMMARY | 2021-11-24 16:15 | XMS_ITS | Encounter Summary ---
:1945 Author Organization [place] Address Critical access hospital0 [facility] [place] [address] Care Team Providers Name Role Phone Eusebia Whitaker Primary Care Provider Encounter Details Date Type Department Care Team Description 10/01/2019 Hospital Encounter M [facility] Non-Fv Cred entialed Provider, Radiology [facility] Care [address] Audi Maurer MD [employer] [address] [place] [address] [address] [place] [address] Social History Tobacco Use [...] cannot control If you have questions call: [facility] Radiology Dept @ [phone] 1. Cancel bx today and reschedule once [...] start date,and side effects, yes. Pt to slate picker new medication at her pharmacy today. [...] If the visitor has positive symptoms, notify supervisor sample preparation/manger Per policy, the visitor will need to [...] Signature INR 1.10 0.86 - 1.14 10/01/2019 [place] 9:[address] [facility] Specimen Anatomical Collection Method Collection Time Receive d Time (Source) Location / / Volume Laterality Blood specimen 10/01/2019 9:19 AM 020 9:20 (specimen) CDT AM CDT Adrian Kern MD LAB - BLOOD ORDERABLES Performing Organization Address City/State/ZIP Code Phon e Number M [facility] [address] [phone] [facility] [address] [address], [place] [phone] (ABNORMAL) Basic metabolic panel (10/01/2019 9:19 AM CDT) Analysis Performed At [facility] Time Signature Sodium 138 133 - 144 10/01/2019 [place] mmol/L 9:41 AM [facility] Potassium 3.5 3.4 - 5.3 10/01/2019 [place] mmol/L 9:41 AM [facility] Chloride 106 94 - 109 10/01/2019 [place] mmol/L 9:41 AM [facility] Carbon Dioxide 26 20 - 32 10/01/2019 [place] mmol/L 9:51 AM [facility] Anion Gap 6 3 - 14 10/01/2019 [place] mmol/L 9:51 AM [facility] Glucose 102 (H) 70 - 99 10/01/2019 [place] mg/dL 9:51 AM [facility] Urea Nitrogen 35 (H) 7 - 30 10/01/2019 [place] mg/dL 9:51 AM [facility] Creatinine 2.79 (H) 0.52 - 10/01/2019 [place] 1.04 mg/dL 9:51 AM [facility] GFR Estimate 16 (L) >60 10/01/2019 [place] mL/min/{1. 9:51 AM [facility] 73_m2} [facility] Comment: Non GFR Calc Starting 03/26/2018, serum creatinine ba sed estimated GFR (eGFR) will be calculated using the Chronic Kidney Dise [facility] Epidemiology Collaboration (CKD-EPI) equation. GFR Estimate If 18 (L) >60 mL/min/{1.73_m2} 10/01/2019 9: 51 AM [facility] Comment: GFR Calc Starting 03/26/2018, serum creatinine ba sed estimated GFR (eGFR) will be calculated using the Chronic Kidney Dise ase Epidemiology Collaboration (CKD-EPI) equation. Calcium 8.9 8.5 - 10.1 mg/dL 10/01/2019 9:51 AM CDT [facility] Specimen Anatomical Collection Method Collection Time Receive d Time (Source) Location / / Volume Laterality Blood specimen 10/01/2019 9:19 AM 020 9:20 (specimen) CDT AM CDT Adrian Kern MD LAB - BLOOD ORDERABLES Performing Organization Address City/State/ZIP Code Phon e Number M [facility] [address] [place] [address] [facility] [address] [place] [address], [place] [phone] Platelet function closure with reflex (10/01/2019 9:19 AM CDT) P athologist Signature PLT Funct 149 <170 sec 10/01/2019 [place] COL/EPI 10:[address] [facility] Specimen Anatomical Collection Method Collection Time Receive d Time (Source) Location / / Volume Laterality Blood specimen 10/01/2019 9:19 AM 020 9:20 (specimen) CDT AM CDT Adrian Kern MD LAB - BLOOD ORDERABLES Performing Organization Address City/State/ZIP Code Phon e Number M [facility] [address] [place] [address] [facility] [address] [place] [address], [place] [phone] (ABNORMAL) CBC with platelets (10/01/2019 9:19 AM CDT) Analysis Performed At [facility] Time Signature WBC 5.3 4.0 - 11.0 10/01/2019 [place] 10e9/L 9:26 AM [facility] RBC Count 3.58 (L) 3.8 - 5.2 10/01/2019 [place] 10e12/L 9:26 AM [facility] Hemoglobin 10.2 (L) 11.7 - 10/01/2019 [place] 15.7 g/dL 9:26 AM [facility] Hematocrit 30.8 (L) 35.0 - 10/01/2019 [place] 47.0 % 9:[address] [facility] MCV 86 78 - 100 10/01/2019 [place] fl 9:[address] [facility] MCH 28.5 26.5 - 10/01/2019 [place] 33.0 pg 9:26 AM [facility] MCHC 33.1 31.5 - 10/01/2019 [place] 36.5 g/dL 9:26 AM [facility] RDW 14.5 10.0 - 10/01/2019 [place] 15.0 % 9:26 AM [facility] Platelet Count 170 150 - 450 10/01/2019 [place] 10e9/L 9:26 AM [facility] Specimen Anatomical Collection Method Collection Time Receive d Time (Source) Location / / Volume Laterality Blood specimen 10/01/2019 9:19 AM 020 9:20 (specimen) CDT AM CDT Adrian Kern MD LAB - BLOOD ORDERABLES Performing Organization Address City/State/ZIP Code Phon e Number M [facility] [address] [address] [facility] [address] [address], [facility] [phone] documented in this encounter Visit Diagnoses Not [...] dose documented in this encounter Care Teams Clinical Law Professor Relationship Specialty Start Date End Date Eusebia Whitaker PCP - General Family Practice 09/25/19 [facility] [address] [place] [address] documented as of this encounter
--- OUTSIDE RECORDS SUMMARY | 2021-11-24 16:15 | XMS_ITS | Encounter Summary ---
:1945 Author Organization [place] Address [address] [facility] [place] [address] Care Team Providers Name Role Phone Eusebia Whitaker Primary Care Provider Encounter Details Date Type Department Care Team Description 09/04/2019 Medical Correspondence [facility] Scan, US GUIDED RENAL Health Info Mgmt Non-Provider BIOPSY ORDSamy Morales Srvcs INTERMED [address] [facility] [place] [address] Social History [...] on filedocumented in this encounter Care Teams Dye And Chemical Coordinator Relationship Specialty Start Date End Date Eusebia Whitaker PCP - General Family Practice 09/25/19 [facility] [address] [place] [address] documented as of this encounter
--- OUTSIDE RECORDS SUMMARY | 2021-11-24 16:15 | XMS_ITS | Encounter Summary ---
:1945 Author Organization [place] Address [facility] [place] [address] Care Team Providers Name Role Phone Eusebia [...] on filedocumented in this encounter Care Teams Recruitment Director Relationship Specialty Start Date End Date Eusebia Whitaker PCP - General Family Practice 09/25/[address] [facility] [address] [place] [address] documented as of this encounter
--- OUTSIDE RECORDS SUMMARY | 2021-11-24 16:15 | XMS_ITS | Encounter Summary ---
:1945 Author Organization [place] Address [address] [facility] [place] [place] [address] Care Team Providers Name Role Phone Eusebia Whitaker Primary Care Provider Encounter Details Date Type Department Care Team Description 09/04/[address] [facility] Scan, ORDER [facility] Info Mgmt Non-Provider [facility] [address] [place] [address] Social History Tobacco Use Types [...] on filedocumented in this encounter Care Teams Leather Polisher Relationship Specialty Start Date End Date Eusebia Whitaker PCP - General Family Practice 09/25/19 [facility] [address] [place] [address] documented as of this encounter
--- OUTSIDE RECORDS SUMMARY | 2021-11-24 16:15 | XMS_ITS | Encounter Summary ---
:1945 Author Organization [place] Address [facility] [place] [address] Care Team Providers Name Role Phone Eusebia Whitaker Primary Care Provider Reason for Visit Reason Onset Date Comments Covid 19 Testing 09/29/2019 Encounter Details Date Type Department Care Team Description 09/29/2019 [facility] for [facility] Care [facility] CONSULTANTS screening for other [address] [place], [place] [address] ARETHA JACQUELINE [facility] [address] [facility] [phone] [place], [place] [address] (Wo rk) Social History Tobacco Use Types [...] (Coronavirus) by PCR (09/29/2019 4:05 PM CDT) [facility] Method Time Signature COVID-19 Nasopharyngeal 09/29/2019 [place] Virus PCR to 4:10 PM CDT [facility] Source [facility] COVID-19 Not Detected 09/30/2019 [facility] Virus PCR to 1:10 PM CDT [facility] [employer] [facility] Comment: Collection of multiple [...] N1,N2 gene targets of CoV2 and human ENTRY LEVEL SALES REPRESENTATIVE as an internal control. A negative result [...] for Disease Control) Testing performed by [facility] [place], Room 1-210, [address] [place] [address]. T his test was developed and its performance characteristics determined b y the [facility] [place]. It has not been cleared or appr [...] MICRO GENERAL ORDERABL ES Performing Organization Address City/State/[facility] Code Phon e Number [facility] [address] [place] [id number] [facility] Room: [address] [address] [facility] documented in this encounter Visit Diagnoses Diagnosis Encounter for screening for other viral diseases documented in this encounter Care Teams Electrical Tester Battery Relationship Specialty Start Date End Date Eusebia Whitaker PCP - General Family Practice 09/25/19 [facility] [address] [place] [address] documented as of this encounter
--- OUTSIDE RECORDS SUMMARY | 2021-11-24 16:15 | XMS_ITS | Encounter Summary ---
:1945 Author Organization [place] Address [address] [facility] [place] [address] Care Team Providers Name Role Phone Eusebia Whitaker Primary Care Provider Reason for Visit Reason Onset Date Comments Pt. Information/instruction 09/30/2019 Encounter Details Date Type Department Care Team Description 09/30/2019 Telephone [facility] Kaelyn Lopez, RN Pt. [facility] s Information/instruction [address] [place] [address] Social History Tobacco Use Types [...] on filedocumented in this encounter Care Teams Lag Screwer Relationship Specialty Start Date End Date Eusebia Whitaker PCP - General Family Practice 09/25/19 [facility] [address] [place] [address] documented as of this encounter
--- OUTSIDE RECORDS SUMMARY | 2021-11-24 16:15 | XMS_ITS | Encounter Summary ---
:1945 Author Organization [place] Address [facility] [place] [address] Care Team Providers Name Role Phone Eusebia [...] on filedocumented in this encounter Care Teams Yard Person Relationship Specialty Start Date End Date Eusebia Whitaker PCP - General Family Practice 09/25/19 [facility] [address] [place] [address] documented as of this encounter
--- OUTSIDE RECORDS SUMMARY | 2021-11-24 16:15 | XMS_ITS | Encounter Summary ---
:1945 Author Organization [place] Address [facility] [place] [address] Care Team Providers Name Role Phone Eusebia [...] on filedocumented in this encounter Care Teams Electrical Contractor Relationship Specialty Start Date End Date Eusebia Whitaker PCP - General Family Practice 09/25/19 [facility] [address] [place] [address] documented as of this encounter
--- OUTSIDE RECORDS SUMMARY | 2021-11-24 16:15 | XMS_ITS | Clinical Summary ---
:1945 Author Organization [place] Address [address] [place] [address] Care Team Providers Name Role Phone Eusebia [...] age to complete this topic Care Teams Ladle Repairman Relationship Specialty Start Date End Date Eusebia Whitaker PCP - General Family Practice 09/25/19 [facility] [address] [facility] [place] [address]
== END 2021-11-11 14:31 | disposition home or self-care (01) ==
LOC: AMB 11-24 16:09
PROVIDERS: PCP Family Medicine; Visit Provider Family Medicine
DX: M54.50 Low back pain, unspecified (principal)
CPT/HCPCS: A0425; A0427

== ENCOUNTER 2021-11-11 15:32 | Emergency (ER) | payer OTHER, SELFPAY ==
[2021-11-11] VITALS (8 sets, daily range): BP systolic 98–153; BP diastolic 46–65; PULSE 90–101; RESP 14–24; TEMP 36.9–38.2; O2SAT 95–100; BMI 25.9
--- NOTE | 2021-11-11 15:58 | CRLHL7_ITS ---
For Patients: As a result of the Cures Act, medical imaging exams and procedure reports are released immediately into your electronic medical record. You may view this report before your referring provider. If you have questions, please contact your health care provider. INDICATION: Lobectomy. TECHNIQUE: Lumbar spine 3 view. COMPARISON: None. FINDINGS/impression: Bones: Scoliosis of the lumbar spine is noted. No fractures or significant bone lesions. Left hip total arthroplasty changes. Joints: Multilevel moderate to severe degenerative changes are identified throughout the lumbar spine.. Bilateral SI joint degenerative changes as well as right hip degenerative changes. Soft tissues: Unremarkable. Dictated by Richard Bhakta MD @ 11/11/2021 7:11:11 PM (Electronically Signed)
--- NOTE | 2021-11-11 15:58 | CRLHL7_ITS ---
For Patients: As a result of the Cures Act, medical imaging exams and procedure reports are released immediately into your electronic medical record. You may view this report before your referring provider. If you have questions, please contact your health care provider. INDICATION: Low-back pain.. TECHNIQUE: Chest 1 view. COMPARISON: September 26, 2021. FINDINGS: Cardiovascular and mediastinum: Cardiomediastinal silhouette is within normal limits. Redemonstrated aortic arch calcifications. Redemonstrated right-sided dialysis catheter with distal tip at the right atrium. Lungs and pleural spaces: Lungs are clear. No evidence of pleural effusion. No pneumothorax identified. Bones and soft tissues: Unremarkable. IMPRESSION: No acute cardiopulmonary process identified. No significant interval change. Dictated by Richard Bhakta MD @ 11/11/2021 7:09:48 PM (Electronically Signed)
--- NOTE | 2021-11-11 15:58 | CRLHL7_ITS ---
For Patients: As a result of the Century Cures Act, medical imaging exams and procedure reports are released immediately into your electronic medical record. You may view this report before your referring provider. If you have questions, please contact your health care provider. INDICATION: Back pain. TECHNIQUE: Thoracic spine 2 view. COMPARISON: None. FINDINGS/impression: Bones: Mild scoliosis of the lumbar spine is partially visualized. No fractures or significant bone lesions. Joints: Mild multilevel degenerative changes throughout the thoracic spine.. Soft tissues: Right-sided dialysis catheter terminating in the right atrium. Aortic arch calcifications.. Dictated by Richard Bhakta MD @ 11/11/2021 7:08:28 PM (Electronically Signed)
--- NOTE | 2021-11-11 17:04 | ED_ITS ---
HPI - General Adult General Chief complaint: Back Injury/Pain Stated complaint: Back Pain Time Seen by Provider: 11/11/21 15:41 Source: patient and family Mode of arrival: EMS History of Present Illness HPI narrative: 76-year-old female comes in today with weakness and confusion. Her daughter called EMS today because her mother was unable to walk and seemed lethargic. Yesterday she vomited once. She has had decreased p.o. intake for several days now. Patient's daughter denies any fevers that she is aware of. She states that she generally ambulates independently or with a walker and that today she found her lying in bed unable to get up. When she asked her to get up patient was unable to without assistance and started complaining of low back pain. She did receive 100 mcg of fentanyl in the ambulance on the way here for her back pain. She denies feeling short of breath. She denies any chest pain or recent illness. She denies cough. She denies any abdominal discomfort. Patient generally has very little urine output secondary to kidney failure and dialysis. She is getting dialysis on Tuesdays and Saturdays. She does become quite fatigued after dialysis but yesterday her daughter states that her fatigue seemed much more aggressive than usual. Related Data Home Medications Medication Instructions Recorded Confirmed atorvastatin 20 mg tablet 20 mg PO QPM 11/08/21 carvedilol 25 mg tablet 37.5 mg PO BID 11/08/21 furosemide 20 mg tablet (Lasix) 20 mg PO BID 11/08/21 gabapentin 100 mg capsule 200 mg PO QPM 11/08/21 hydralazine 25 mg tablet 25 mg PO TID 11/08/21 hydralazine 50 mg tablet 50 mg PO TID 11/08/21 isosorbide mononitrate 30 mg 30 mg PO BID 11/08/21 tablet,extended release 24 hr omeprazole 20 mg capsule,delayed 20 mg PO BID 11/08/21 release oxybutynin chloride 5 mg tablet 5 mg PO BID PRN 11/08/21 B-complex with vitamin C 1 tab PO QDAY 11/09/21 11/09/21 acetaminophen 650 mg 650 mg PO .1-2X/Day 11/09/21 11/09/21 tablet,extended release calcium carbonate 600 mg calcium 1,500 mg PO BID 11/09/21 11/09/21 (1,500 mg) tablet cholecalciferol (vitamin D3) 50 2,000 unit PO DAILY 11/09/21 11/09/21 mcg (2,000 unit) capsule coenzyme Q10 200 mg capsule mg PO DAILY 11/09/21 11/09/21 ferrous sulfate 325 mg (65 mg mg PO DAILY 11/09/21 11/09/21 iron) tablet,delayed release isosorbide mononitrate 60 mg 30 mg PO BID 11/09/21 11/09/21 tablet,extended release 24 hr multivitamin (Multiple Vitamins 1 tab PO QDAY 11/09/21 11/09/21 tablet) vit tab PO 11/09/21 11/09/21 [id number] 500 mg-50 mg-25 mg-40 mg tablet (Bioflex) Allergies Allergy/AdvReac Type Severity Reaction Status Date / Time simvastatin AdvReac Intermediate Joint Pain Verified 11/09/21 12:56 Review of Systems Status of ROS: Reports: 10 or more systems reviewed and unremarkable except as noted in History and below [facility] Medical History Anemia Stage 5 chronic kidney disease due to hypertension Surgical History History of carotid endarterectomy History of colonoscopy History of dilation and curettage (12/08/10) History of total hip arthroplasty Status post hip replacement Social History Smoking Status: Never smoker Do you use any of these nicotine containing products: None Second hand tobacco smoke exposure: No How often do you have a drink containing alcohol: monthly or less How many standard drinks containing alcohol do you have on a typical day: 1 or 2 How often do you have six or more drinks on one occasion: Never AUDIT-C Alcohol total score: 1 Non-prescribed substance use: denies use service: No Exam Narrative: Exam Narrative: Well-nourished well-developed patient in no acute distress, is sleepy but easily arousable. Alert and oriented to person and place. She can tell me that it is 2021 however she cannot tell me the month or the date.. Answers questions appropriately and is cooperative. No tangential or magical thinking noted. Daughter does most of the talking, patient says very little but again is answering appropriately. HEENT: Normocephalic atraumatic. Pupils are equally round reactive to light. Extraocular muscles are intact. Conjunctivae are moist. Moist mucous membranes. Neck is soft without any lymphadenopathy or thyromegaly. No masses are appreciated. Cardiovascular: Heart is regular rate and rhythm S1 and S2 are present without any murmurs. Lungs: Clear to auscultation bilaterally no wheezes rhonchi or rales are appreciated. Abdomen: Soft and nontender nondistended with normal bowel sounds. No guarding or rebound. Extremities: Bilateral lower extremities are without edema. Normal DP and PT pulses. Skin: Well perfused without any obvious rashes. Back: Patient has tenderness over the lumbar spine and also over the paraspinal musculature. Strength is 3 out of 5 bilaterally of the upper and lower extremities. Const: Vital Signs, click to edit/add: Vital Signs - 24 hr 11/11/21 15:38 11/11/21 17:00 11/11/21 17:45 Temperature 100.8 F H 98.5 F Pulse Rate [Pulse Oximeter] 95 98 98 Respiratory Rate 16 Blood Pressure [Le ft Upper Arm] 136/65 121/56 L 131/59 L Pulse Oximetry 97 97 Oxygen Delivery Me thod Room Air Room Air 11/11/21 19:11 11/11/21 19:20 Temperature Pulse Rate [Pulse Oximeter] 92 92 Respiratory Rate 14 17 Blood Pressure [Le ft Upper Arm] 98/46 L 100/49 L Pulse Oximetry 97 95 Oxygen Delivery Me thod Course Course Hospital Course: White cell count minimally elevated, CRP markedly elevated. Her creatinine is also quite elevated at 6.6. Troponins were elevated at 01.9 repeat 01.7, again she is not having cardiovascular symptoms this is likely due to her elevated creatinine. X-ray of the chest was unremarkable x-ray of the thoracic and lumbar spine also unremarkable. Patient was hyponatremic, Patient received 500 mL of normal saline 2 mg of IV morphine while she was here. Repeat temperature came down to normal without intervention, unclear of the significance of the elevated temperature on arrival. Patient not making any urine therefore urinalysis was not done. EKG did not show any acute ST changes. D-dimer was markedly elevated x2 however, the blood hemolyzed both times. Vital Signs Vital signs: Initial Vital Signs Temperature 100.8 F H 11/11/21 15:38 Temperature Source Temporal Artery Scan 11/11/21 15:38 Pulse Rate 95 11/11/21 15:38 Pulse Rhythm 11/11/21 15:38 Respiratory Rate 16 11/11/21 15:38 Blood Pressure 136/65 11/11/21 15:38 Blood Pressure Mean 88 11/11/21 15:38 Blood Pressure Position Supine 11/11/21 15:38 Pulse Oximetry 97 11/11/21 15:38 Oxygen Delivery Method 11/11/21 15:38 Vital Signs Temperature 100.8 F H 11/11/21 15:38 Pulse Rate 95 11/11/21 15:38 Respiratory Rate 16 11/11/21 15:38 Blood Pressure 136/65 11/11/21 15:38 Pulse Oximetry 97 11/11/21 15:38 Oxygen Delivery Method 11/11/21 15:38 Temperature 98.5 F 11/11/21 17:45 Pulse Rate 92 11/11/21 19:20 Respiratory Rate 17 11/11/21 19:20 Blood Pressure 100/49 L 11/11/21 19:20 Pulse Oximetry 95 11/11/21 19:20 Oxygen Delivery Method 11/11/21 17:45 Medical Decision Making MDM Narrative Medical decision making narrative: 68-year-old female with chronic renal failure and dialysis, back pain, acute weakness and inability to get around at home. Patient needing admission. At this time waiting for call back from [facility] as patient is a frazer patient. Medical Records Medical records reviewed: Yes I reviewed the patient's medical records Lab Data Lab results reviewed: Yes I reviewed the patient's lab results Labs: Lab Results 11/11/21 11/11/21 11/11/21 Range/Units 16:58 17:10 17:10 WBC 12.67 H (4.50-11.00) K/uL RBC 4.01 (4.00-5.20) m/uL Hgb 12.1 (12.0-16.0) gm/dL Hct 37.5 (33.0-51.0) % MCV 94 (80-100) fL MCH 30 (26-34) pg MCHC 32 (32-36) gm/dL RDW Coeff of Dutch 15.0 (11.5-15.5) % Plt Count 120 L (140-440) K/uL Neut % (Auto) 88.7 H (42.0-72.0) % Lymph % (Auto) 5.4 L (20-44) % Kittson % (Auto) 5.1 (0.0-11.0) % Eos % (Auto) 0.0 (0.0-7.0) % Baso % (Auto) 0.2 (0.0-3.0) % Neut # (Auto) 11.20 H (1.7-7.0) K/uL Lymph # (Auto) 0.70 L (0.90-2.90) K/uL Kittson # (Auto) 0.60 (0.00-0.90) K/UL Eos # (Auto) 0.00 (0.00-0.50) K/uL Baso # (Auto) 0.00 (0.00-0.30) K/uL Abs Immat Gran (auto) 0.08 (0.00-0.30) K/uL ESR (2-20) mm/hr D-Dimer Quant (PE/DVT) (0.00-0.50) ug/ml Sodium 129 L (135-149) mmol/L Potassium 5.2 H (3.6-5.1) mmol/L Chloride 97 (96-114) mmol/L Carbon Dioxide 22 (20-32) mmol/L BUN 33 H (7-30) mg/dL Creatinine 6.6 H (0.5-1.5) mg/dL Estimated Creat Clear 7.09 Estimated GFR 6 ml/min Glucose 126 H (60-115) mg/dL Lactate (0.5-1.9) mmol/L Calcium 8.9 (8.4-10.6) mg/dL Total Bilirubin (0.1-1.5) mg/dL Direct Bilirubin (0.0-0.5) mg/dL AST (12-35) U/L ALT (4-35) U/L Alkaline Phosphatase (40-150) U/L Troponin I (0.01-0.04) ng/mL C-Reactive Protein 16.4 H (0.5-1.0) mg/dL Total Protein (6.0-8.3) g/dL Albumin (3.3-5.0) g/dL Lipase 41 (23-300) U/L Acetaminophen < 10.0 L (10.0-30.0) ug/mL SARS-CoV-2 (PCR) Negative SARS-CoV-2 (Negative) Influenza Type A (PCR) Negative PCR FLU A (Negative) Influenza Type B (PCR) Negative PCR FLU B (Negative) POC Troponin I (0.01-0.04) ng/ml 11/11/21 11/11/21 11/11/21 Range/Units 17:10 17:10 17:10 WBC (4.50-11.00) K/uL RBC (4.00-5.20) m/uL Hgb (12.0-16.0) gm/dL Hct (33.0-51.0) % MCV (80-100) fL MCH (26-34) pg MCHC (32-36) gm/dL RDW Coeff of Dutch (11.5-15.5) % Plt Count (140-440) K/uL Neut % (Auto) (42.0-72.0) % Lymph % (Auto) (20-44) % Kittson % (Auto) (0.0-11.0) % Eos % (Auto) (0.0-7.0) % Baso % (Auto) (0.0-3.0) % Neut # (Auto) (1.7-7.0) K/uL Lymph # (Auto) (0.90-2.90) K/uL Kittson # (Auto) (0.00-0.90) K/UL Eos # (Auto) (0.00-0.50) K/uL Baso # (Auto) (0.00-0.30) K/uL Abs Immat Gran (auto) (0.00-0.30) K/uL ESR (2-20) mm/hr D-Dimer Quant (PE/DVT) (0.00-0.50) ug/ml Sodium (135-149) mmol/L Potassium (3.6-5.1) mmol/L Chloride (96-114) mmol/L Carbon Dioxide (20-32) mmol/L BUN (7-30) mg/dL Creatinine (0.5-1.5) mg/dL Estimated Creat Clear Estimated GFR ml/min Glucose (60-115) mg/dL Lactate 1.5 (0.5-1.9) mmol/L Calcium (8.4-10.6) mg/dL Total Bilirubin 0.6 (0.1-1.5) mg/dL Direct Bilirubin 0.4 (0.0-0.5) mg/dL AST 29 (12-35) U/L ALT 13 (4-35) U/L Alkaline Phosphatase 60 (40-150) U/L Troponin I (0.01-0.04) ng/mL C-Reactive Protein (0.5-1.0) mg/dL Total Protein 6.1 (6.0-8.3) g/dL Albumin 3.2 L (3.3-5.0) g/dL Lipase (23-300) U/L Acetaminophen (10.0-30.0) ug/mL SARS-CoV-2 (PCR) (Negative) Influenza Type A (PCR) (Negative) Influenza Type B (PCR) (Negative) POC Troponin I 0.20 H (0.01-0.04) ng/ml 11/11/21 11/11/21 11/11/21 Range/Units 17:27 17:30 18:45 WBC (4.50-11.00) K/uL RBC (4.00-5.20) m/uL Hgb (12.0-16.0) gm/dL Hct (33.0-51.0) % MCV (80-100) fL MCH (26-34) pg MCHC (32-36) gm/dL RDW Coeff of Dutch (11.5-15.5) % Plt Count (140-440) K/uL Neut % (Auto) (42.0-72.0) % Lymph % (Auto) (20-44) % Kittson % (Auto) (0.0-11.0) % Eos % (Auto) (0.0-7.0) % Baso % (Auto) (0.0-3.0) % Neut # (Auto) (1.7-7.0) K/uL Lymph # (Auto) (0.90-2.90) K/uL Kittson # (Auto) (0.00-0.90) K/UL Eos # (Auto) (0.00-0.50) K/uL Baso # (Auto) (0.00-0.30) K/uL Abs Immat Gran (auto) (0.00-0.30) K/uL ESR (2-20) mm/hr D-Dimer Quant (PE/DVT) 7.80 H (0.00-0.50) ug/ml Sodium (135-149) mmol/L Potassium (3.6-5.1) mmol/L Chloride (96-114) mmol/L Carbon Dioxide (20-32) mmol/L BUN (7-30) mg/dL Creatinine (0.5-1.5) mg/dL Estimated Creat Clear Estimated GFR ml/min Glucose (60-115) mg/dL Lactate (0.5-1.9) mmol/L Calcium (8.4-10.6) mg/dL Total Bilirubin (0.1-1.5) mg/dL Direct Bilirubin (0.0-0.5) mg/dL AST (12-35) U/L ALT (4-35) U/L Alkaline Phosphatase (40-150) U/L Troponin I 0.19 H* 0.17 H* (0.01-0.04) ng/mL C-Reactive Protein (0.5-1.0) mg/dL Total Protein (6.0-8.3) g/dL Albumin (3.3-5.0) g/dL Lipase (23-300) U/L Acetaminophen (10.0-30.0) ug/mL SARS-CoV-2 (PCR) (Negative) Influenza Type A (PCR) (Negative) Influenza Type B (PCR) (Negative) POC Troponin I (0.01-0.04) ng/ml 11/11/21 Range/Units 19:15 WBC (4.50-11.00) K/uL RBC (4.00-5.20) m/uL Hgb (12.0-16.0) gm/dL Hct (33.0-51.0) % MCV (80-100) fL MCH (26-34) pg MCHC (32-36) gm/dL RDW Coeff of Dutch (11.5-15.5) % Plt Count (140-440) K/uL Neut % (Auto) (42.0-72.0) % Lymph % (Auto) (20-44) % Kittson % (Auto) (0.0-11.0) % Eos % (Auto) (0.0-7.0) % Baso % (Auto) (0.0-3.0) % Neut # (Auto) (1.7-7.0) K/uL Lymph # (Auto) (0.90-2.90) K/uL Kittson # (Auto) (0.00-0.90) K/UL Eos # (Auto) (0.00-0.50) K/uL Baso # (Auto) (0.00-0.30) K/uL Abs Immat Gran (auto) (0.00-0.30) K/uL ESR 26 H (2-20) mm/hr D-Dimer Quant (PE/DVT) (0.00-0.50) ug/ml Sodium (135-149) mmol/L Potassium (3.6-5.1) mmol/L Chloride (96-114) mmol/L Carbon Dioxide (20-32) mmol/L BUN (7-30) mg/dL Creatinine (0.5-1.5) mg/dL Estimated Creat Clear Estimated GFR ml/min Glucose (60-115) mg/dL Lactate (0.5-1.9) mmol/L Calcium (8.4-10.6) mg/dL Total Bilirubin (0.1-1.5) mg/dL Direct Bilirubin (0.0-0.5) mg/dL AST (12-35) U/L ALT (4-35) U/L Alkaline Phosphatase (40-150) U/L Troponin I (0.01-0.04) ng/mL C-Reactive Protein (0.5-1.0) mg/dL Total Protein (6.0-8.3) g/dL Albumin (3.3-5.0) g/dL Lipase (23-300) U/L Acetaminophen (10.0-30.0) ug/mL SARS-CoV-2 (PCR) (Negative) Influenza Type A (PCR) (Negative) Influenza Type B (PCR) (Negative) POC Troponin I (0.01-0.04) ng/ml Imaging Data Thoracic spine x-ray: Attestation: I have reviewed the pertinent imaging results. Radiologist's impression: FINDINGS/impression: Bones: Mild scoliosis of the lumbar spine is partially visualized. No fractures or significant bone lesions. Joints: Mild multilevel degenerative changes throughout the thoracic spine.. Soft tissues: Right-sided dialysis catheter terminating in the right atrium. Aortic arch calcifications.. Chest x-ray: Attestation: I have reviewed the pertinent imaging results. My impression: No acute findings Radiologist's impression: FINDINGS: Cardiovascular and mediastinum: Cardiomediastinal silhouette is within normal limits. Redemonstrated aortic arch calcifications. Redemonstrated right-sided dialysis catheter with distal tip at the right atrium. Lungs and pleural spaces: Lungs are clear. No evidence of pleural effusion. No pneumothorax identified. Bones and soft tissues: Unremarkable. IMPRESSION: No acute cardiopulmonary process identified. No significant interval change. Lumbar spine x-ray: Attestation: I have reviewed the pertinent imaging results. Radiologist's impression: FINDINGS/impression: Bones: Scoliosis of the lumbar spine is noted. No fractures or significant bone lesions. Left hip total arthroplasty changes. Joints: Multilevel moderate to severe degenerative changes are identified throughout the lumbar spine.. Bilateral SI joint degenerative changes as well as right hip degenerative changes. Soft tissues: Unremarkable. ECG Data Attestation: I personally reviewed and interpreted this ECG as follows: Discharge Plan Discharge Clinical Impression: Lumbar back pain with radiculopathy affecting lower extremity, Hyponatremia, Renal failure, Weakness Patient Disposition: [facility] Condition: Stable Prescriptions: No Action cholecalciferol (vitamin D3) 50 mcg (2,000 unit) capsule 2,000 unit PO DAILY coenzyme Q10 200 mg capsule PO DAILY ferrous sulfate 325 mg (65 mg iron) tablet,delayed release (DR/EC) PO DAILY calcium carbonate 600 mg calcium (1,500 mg) tablet 1,500 mg PO BID acetaminophen 650 mg tablet extended release 650 mg PO .1-2X/Day isosorbide mononitrate 60 mg tablet extended release 24 hr 30 mg PO BID B-complex with vitamin C Tablet 1 tab PO QDAY Bioflex 512-53-19-40 mg tablet PO multivitamin [Multiple Vitamins] Tablet 1 tab PO QDAY isosorbide mononitrate 30 mg tablet extended release 24 hr 30 mg PO BID omeprazole 20 mg capsule,delayed release(DR/EC) 20 mg PO BID hydralazine 50 mg tablet 50 mg PO TID Rx Instructions: Take 50mg with a 25mg tabs- total 75mg TID hydralazine 25 mg tablet 25 mg PO TID Rx Instructions: Take a total of 75mg TID furosemide [Lasix] 20 mg tablet 20 mg PO BID atorvastatin 20 mg tablet 20 mg PO QPM gabapentin 100 mg capsule 200 mg PO QPM carvedilol 25 mg tablet 37.5 mg PO BID Rx Instructions: must administer with a meal/food oxybutynin chloride 5 mg tablet 5 mg PO BID PRN Stand Alone Forms: [facility] Info Instructions
--- NOTE | 2021-11-11 17:15 | ED.NURSE ---
Labs and fluids delayed due to difficult IV access.
[2021-11-11 17:22] LABS: Basophils Percent Auto 0.2 % (0.0-3.0); Hematocrit 37.5 % (33.0-51.0); Hemoglobin* 12.1 gm/dL (12.0-16.0); Immature Granulocytes Abs Auto 0.08 K/uL (0.00-0.30); Lymphocytes Percent Auto 5.4 % (20-44); Mean Corpuscular HGB Conc 32 gm/dL (32-36); Mean Corpuscular Hemoglobin 30 pg (26-34); Mean Corpuscular Volume 94 fL (80-100); Monocytes Percent Auto 5.1 % (0.0-11.0); Neutrophils Percent Auto 88.7 % (42.0-72.0); Red Blood Count 4.01 m/uL (4.00-5.20); White Blood Count* 12.67 K/uL (4.50-11.00)
[2021-11-11 17:32] LABS: Lactate* 1.5 mmol/L (0.5-1.9)
[2021-11-11] MEDS: 0.9 % SODIUM CHLORIDE 500 ML 500 ML 250 ML IV (17:53)
[2021-11-11 17:55] LABS: Chloride* 97 mmol/L (96-114); Potassium* 5.2 mmol/L (3.6-5.1); Sodium* 129 mmol/L (135-149)
[2021-11-11] MEDS: ASPIRIN 81 MG TAB.CHEW 324 MG PO (17:56)
[2021-11-11 17:58] LABS: Blood Urea Nitrogen* 33 mg/dL (7-30); Carbon Dioxide* 22 mmol/L (20-32); Creatinine* 6.6 mg/dL (0.5-1.5); Est. Creatinine Clearance* 7.09; Estimated Glomerular Filt Rate 6 ml/min; Lipase* 41 U/L (23-300)
[2021-11-11 17:59] LABS: Calcium* 8.9 mg/dL (8.4-10.6); Glucose* 126 mg/dL (60-115)
[2021-11-11 18:08] LABS: Acetaminophen* < 10.0 ug/mL (10.0-30.0)
[2021-11-11 18:13] LABS: C Reactive Protein* 16.4 mg/dL (0.5-1.0)
[2021-11-11 18:17] LABS: Platelet Count* 120 K/uL (140-440)
[2021-11-11 18:18] LABS: Slide Review Reflex No
[2021-11-11 18:33] LABS: Troponin I* 0.19 ng/mL (0.01-0.04)
[2021-11-11 19:26] LABS: Troponin I* 0.17 ng/mL (0.01-0.04)
--- NOTE | 2021-11-11 19:26 | ED.NURSE ---
critical trop 0.17 verbal to MD June.
[2021-11-11 19:27] LABS: PCR FLU A Negative PCR FLU A (Negative); PCR FLU B Negative PCR FLU B (Negative)
[2021-11-11 19:30] LABS: SARS PCR* Negative SARS-CoV-2 (Negative)
[2021-11-11] MEDS: MORPHINE 2 MG/ML inj IVP ×2 (19:32→23:04)
[2021-11-11 19:36] LABS: Albumin* 3.2 g/dL (3.3-5.0)
[2021-11-11 19:39] LABS: Alkaline Phosphatase* 60 U/L (40-150); Aspartate Amino Transferase* 29 U/L (12-35); Bilirubin Direct* 0.4 mg/dL (0.0-0.5); Bilirubin Total* 0.6 mg/dL (0.1-1.5); Total Protein* 6.1 g/dL (6.0-8.3)
[2021-11-11 19:40] LABS: Alanine Aminotransferase* 13 U/L (4-35)
[2021-11-11 20:12] LABS: Erythrocyte SedimentationRate* 26 mm/hr (2-20)
[2021-11-12] VITALS (15 sets, daily range): BP systolic 101–157; BP diastolic 49–86; PULSE 93–105; RESP 14–28; O2SAT 91–97
--- NOTE | 2021-11-12 01:26 | ED.NURSE ---
Call to [facility], beds at [facility] are delayed until 0700 r/t their staffing.
--- NOTE | 2021-11-12 06:55 | ED.NURSE ---
[id number]: patient resting in bed, states comfortable and pain controlled, pt does wince in pain when turning and repositioning but states relief once done moving. pt turn/repo q2 hours, heels floated off bed. pt denies any needs or concerns throughout shift.
--- NOTE | 2021-11-12 08:19 | ED.NURSE ---
continue to wait for bed at [facility]. daughter,Irma, updated
--- NOTE | 2021-11-12 10:54 | ED.NURSE ---
EMS paged for transport
--- NOTE | 2021-11-12 10:57 | ED.NURSE ---
Called report to Diana Cole at [facility] and planning to admit to room 2505. called dispatch for pending transfer.
--- NOTE | 2021-11-12 11:00 | ED.NURSE ---
talked to daughter Irma to update on the pending transfer and waiting for EMS to transport.
--- NOTE | 2021-11-12 12:37 | ED.NURSE ---
went to check on patient and reposition. patient is resting and offered pain medication which patient refused.
--- NOTE | 2021-11-12 13:34 | ED.NURSE ---
called dispatch and within the hour truck will be here. patient continues to remain comfortable and repositioned. denies need for pain medication.
== END 2021-11-12 15:02 | disposition home or self-care (01) ==
PROVIDERS: Emergency Provider Family Medicine; PCP Family Medicine
DX: M54.16 Radiculopathy, lumbar region (principal); N19 Unspecified kidney failure; R53.1 Weakness
CPT/HCPCS: 36415; 71045; 72070; 72100; 80048; 80076; 80143; 83605; 83690; 84484; 85025; 85379; 85651; 86140; 87502; 87635; 93005; 96374; 99285; A9270; J2270; J7120

== ENCOUNTER 2021-11-12 14:43 | Outpatient (CLI) | payer MEDICARE, SELFPAY ==
--- OUTSIDE RECORDS SUMMARY | 2021-11-27 11:29 | XMS_ITS | Encounter Summary ---
:1945 Author Organization [employer] Physician [employer] Address [address] [place] [address] Phone Care Team Providers Name Role Phone Unavailable Primary Care Provider Unavailable Reason for Visit Reason Onset Date Comments Results 10/01/2019 Encounter Details Date Type Department Care Team Description 10/01/2019 [facility] Deena Hadley RN Results [address] [place] [address] Social History Tobacco Use Types Packs/Day Years [...]
--- OUTSIDE RECORDS SUMMARY | 2021-11-27 11:29 | XMS_ITS | Encounter Summary ---
:1945 Author Organization [employer] Physician [employer] Address [address] [place] [address] Phone Care Team Providers Name Role Phone Eusebia Whitaker MD Primary Care Provider Reason for Visit Reason Onset Date Comments Lab results 11/10/2019 Encounter Details Date Type Department Care Team Description 11/10/[address] Z Shahrzad Choi RN Lab results [address] [employer] [address] [place] [address] Social History Tobacco Use Types Packs/Day Years [...] Update 11/11. I will get records from [facility] to confirm the information below. Irma [...] First available with you is 12/11. See LIFE ENRICHMENT SPECIALIST/PA? Overbook? elephone Encounter - Audi Maurer MD [...] - 11/10/2019 4:21 PM CDT Message from assistant front desk manager that patient's daughter was asking for most [...] that the patient saw a provider at [facility] in [place] about two weeks ago and a hemoccult test was positive but nothing was done at that time. She has not seen any blood in the stool. Stool is dark butshe is taking iron supplements. She denies SOB or lightheadedness. I told her to contact the [facility] and advise on the drop in hgb [...] on filedocumented in this encounter Care Teams Market Research Worker Relationship Specialty Start Date End Date Eusebia Whitaker MD PCP - General Family Medicine 11/24/[address] [place] [address] documented as of this encounter
--- OUTSIDE RECORDS SUMMARY | 2021-11-27 11:29 | XMS_ITS | Encounter Summary ---
:1945 Author Organization [employer] Address [address] [place] [address] Phone Care Team Providers Name Role Phone Unavailable Primary Care Provider Unavailable Reason for Visit Reason Onset Date Comments Med Refill 08/08/2019 Encounter Details Date Type Department Care Team Description 08/08/2019 Refill [facility] Deena Hadley RN [address] [facility] [address] [place], [place] [address] Social History Tobacco Use Types Packs/Day Years [...] was unable to find it in the [employer] database. Scripts called in as directed below. I faxed her labs order for 2 weeks. Will await those results and make further plans. MD Deena Harrison MA ?? D/C valsartan and Chlorthalidone Start Furosemide 20 mg BID , Coreg 12.5 mg BID ( monitor HR) . Irma will give you the details of local pharmacy in [place] when you call her. Labs at [place] in 2 wks. If stable / worse, pt will come back to [facility] and plan on getting a renal biopsy done. Labs - RFp, CBC, Iron panel , ferritin F/u 1 month documented in this encounter Plan of Treatment Not on filedocumented as of this encounter Visit Diagnoses Not on filedocumented in this encounter
--- OUTSIDE RECORDS SUMMARY | 2021-11-27 11:29 | XMS_ITS | Encounter Summary ---
:1945 Author Organization [employer] Physician [employer] Address [address] [place] [address] Phone Care Team Providers Name Role Phone Eusebia Whitaker MD Primary Care Provider Reason for Visit Reason Comments Med Refill Encounter Details Date Type Department Care Team Description 04/30/2020 Refill [facility] Audi Maurer MD [address] [facility] [address] [facility] [address] [place] [address] [place] [address] [phone] (Wo rk) Social History Tobacco Use Types [...] on filedocumented in this encounter Care Teams Fiber Optic Central Office Installer Relationship Specialty Start Date End Date Eusebia Whitaker MD PCP - General Family Medicine 11/24/19 [address] [place] [address] documented as of this encounter
--- OUTSIDE RECORDS SUMMARY | 2021-11-27 11:29 | XMS_ITS | Encounter Summary ---
:1945 Author Organization [employer] Physician [employer] Address [address] [place] [address] Phone Care Team Providers Name Role Phone Unavailable Primary Care Provider Unavailable Reason for Visit Reason Onset Date Comments Hypertension 10/07/2019 Encounter Details Date Type Department Care Team Description 10/07/2019 [facility] Deena Hadley RN Hypertension [address] [facility] [address] [place], [place] [address] Social History Tobacco Use Types Packs/Day Years [...] whether it should be pursued of if master control technician is stable than perhaps continue plans the same. He would support a visit with [place] to discuss. I left a message for Irma with the above plan. I asked that she call in 1 more week with the BP log, unless she had any questions or concerns sooner. documented in this encounter Plan of Treatment Not on filedocumented as of this encounter Visit Diagnoses Not on filedocumented in this encounter
--- OUTSIDE RECORDS SUMMARY | 2021-11-27 11:29 | XMS_ITS | Encounter Summary ---
:1945 Author Organization [employer] Address [address] [place] [address] Phone Care Team Providers Name Role Phone Unavailable Primary Care Provider Unavailable Reason for Visit Reason Onset Date Comments Results 07/25/2019 Encounter Details Date Type Department Care Team Description 07/25/2019 Telephone [facility] Deena Hadley RN Results [address] [place] [address] Social History Tobacco Use Types Packs/Day Years [...] Dr. Maurer, labs from 06/29 are worse. [place] up to 2.71 from 1.9. Pt should hydrate well and recheckBMP, UA, alb/pairer inspector ratio and CBC next week. She may need renal bx. Daughter will call her mother who is still in [place] with directions. Lab orders were faxed to [facility] used in June. If her mother is feeling bad in any way, she will call us. documented in this encounter Plan of Treatment Not on filedocumented as of this encounter Visit Diagnoses Not on filedocumented in this encounter
--- OUTSIDE RECORDS SUMMARY | 2021-11-27 11:29 | XMS_ITS | Clinical Summary ---
:1945 Author Organization [employer] Physician [employer] Address [address] [place] [address] Phone Care Team Providers Name Role Phone [...] Advance Directives For more information, please contact: [phone] (Available ) Documents on File Type Date Recorded Patient Application Security Specialist Explanati on Advance Directives and Living Will Power of Accounting Machine Operator Care Teams Logistics Manager Relationship Specialty Start Date End Date Eusebia Whitaker MD PCP - General Family Medicine 11/24/[address] [address]
--- OUTSIDE RECORDS SUMMARY | 2021-11-27 11:29 | XMS_ITS | Encounter Summary ---
:1945 Author Organization [employer] Address [address], [place] [address] Phone Care Team Providers Name Role Phone Eusebia Whitaker MD Primary Care Provider Encounter Details Date Type Department Care Team Description 11/28/2019 Orders Only [facility] Audi Maurer MD [address] [facility] [address] [facility] [address] [place] [address] [place], [place] [id number] (Wo rk) Social History Tobacco Use Types [...] (D2,D3), LC/MS/MS is recomm ended: order code 13006 (patients >2yrs). See Note 1 Note 1 For additional information, please refer to http://education.[employer].Planspot/fa q/HRT716 (This link is being provided for informa tional/ educational purposes only.) Specimen Anatomical Collection Method Collection Time Receive d Time (Source) Location / / Volume Laterality 11/28/2019 11:55 11/28/2019 AM CDT 11:57 AM CDT Resulting Agency Comment Performing Organization Information: ?Site ID: [id number] ?Name: [facility] ?Address: [address] [place] [address] [place], [place] [address] ?Director: Ramiro Fitzpatrick M.D. Audi Maurer MD [...] Organization Information: ?Site ID: [id number] ?Name: [facility] ?Address: [address] [place], [place] [address], [place] [address] ?Director: Ramiro Fitzpatrick M.D. Audi Maurer MD LAB BLOOD ORDERABLES Performing Organization Address City/[facility]/ZIP Code Phon e Number [facility] [place] ([place]) Ferritin, Serum (11/28/2019 11:55 AM CDT) P athologist Signature Ferritin, 42 16 - 288 [facility] - Serum/Plasma ng/mL [place] ([place]DL) Specimen Anatomical Collection Method Collection Time Receive d Time (Source) Location / / Volume Laterality 11/28/2019 11:55 11/28/2019 AM CDT 11:57 AM CDT Resulting Agency Comment Performing Organization Information: ?Site ID: CB ?Name: [facility] ?Address: [address] [place], [place] [address], [place] [address] ?Director: Ramiro Fitzpatrick M.D. Audi Maurer MD LAB BLOOD ORDERABLES Performing Organization Address City/[facility]/ZIP Code Phon e Number [facility] [place] [...] Organization Information: ?Site ID: [id number] ?Name: [facility] ?Address: [address] [place], [place] [address] [address] ?Director: Ramiro Fitzpatrick M.D. Audi Maurer MD LAB BLOOD ORDERABLES Performing Organization Address City/State/ZIP Code Phon e Number [facility] [place] ([place]) (ABNORMAL) [place] and Lambda Free Light Chains, Qn, Serum (11/28/2019 11:55 AM CDT) P athologist Signature [place] light 86.3 (H) 3.3 - 19.4 [facility] - chains, free, mg/L [place] Serum (WDL) Lambda light 38.2 (H) 5.7 - 26.3 [facility] - chains, free, mg/L [place] Serum/Plasma (WDL) [place] light 2.26 (H) 0.26 - [facility] - [...] Performing Organization Information: ?Site ID: [id number] ?Name: [facility] ?Address: [address] [place] [address] [place] [address] ?Director: Ramiro Fitzpatrick M.D. Audi Maurer MD [...] ?Site ID: CB ?Name: [facility] ?Address: [address] [place], [place] [address], [place] [address] ?Director: Ramiro Fitzpatrick M.D. Audi Maurer MD LAB URINE ORDERABLES Performing Organization Address [facility] Phon e Number [facility] [place] ([place]) Immunofixation (VLADIMIR), Urine (11/28/2019 11:55 AM CDT) [facility] Method Time Signature Immunofixation for [facility] [...] ?Site ID: CB ?Name: [facility] ?Address: [address] [place], [place] [address] [address] ?Director: Ramiro Fitzpatrick M.D. Audi Maurer MD LAB BLOOD ORDERABLES Performing Organization Address [facility] e Number [facility] [place] ([place]) (ABNORMAL) CBC (includes Differential/Platelets) (11/28/2019 11:55 AM CDT) [facility] Method Time Signature Leukocytes, Blood 5.6 [...] ID: CB ?Name: [facility] ?Address: [address] [place] [address] [place] [address] ?Director: Ramiro Fitzpatrick M.D. Audi Maurer MD LAB BLOOD ORDERABLES Performing Organization Address City/State/ZIP Code Phon e Number [facility] [place] ([place]) (ABNORMAL) Urinalysis, Complete, w/ Reflex to Culture (11/28/2019 11:55 AM CDT) [facility] Method Time Signature Color of Urine [...] ID: CB ?Name: [facility] ?Address: [address] [place] [address] [place] [address] ?Director: Ramiro Fitzpatrick M.D. Audi Maurer MD [...] ID: CB ?Name: [facility] ?Address: [address] [place] [address] [place] [address] ?Director: Ramiro Fitzpatrick M.D. Audi Maurer MD [...] Performing Organization Information: ?Site ID: CB ?Name: [facility] ?Address: [address] [place], [place] [address] [address] ?Director: Ramiro Fitzpatrick M.D. Audi Maurer MD LAB BLOOD ORDERABLES Performing Organization Address [facility] Phon e Number [facility] [place] ([place]) [...] Performing Organization Information: ?Site ID: CB ?Name: [facility] ?Address: [address] [place], [place] [address] [address] ?Director: Ramiro Fitzpatrick M.D. Audi Maurer MD LAB BLOOD ORDERABLES Performing Organization Address [facility] Phon e Number [facility] [place] ([place]) [...] Comment Performing Organization Information: ?Site ID: ?Name: [facility] ?Address: [address] [place] [address] [place] [address] ?Director: Ramiro Fitzpatrick M.D. Audi Maurer MD LAB BLOOD ORDERABLES Performing Organization Address City/State/ZIP Code Phon e Number [facility] [place] ([place]) documented in this encounter Visit Diagnoses Not on filedocumented in this encounter Care Teams Cloth Shrinking Machine Operator Relationship Specialty Start Date End Date Eusebia Whitaker MD PCP - General Family Medicine 11/24/[address] [place] [address] documented as of this encounter
--- OUTSIDE RECORDS SUMMARY | 2021-11-27 11:29 | XMS_ITS | Encounter Summary ---
:1945 Author Organization [employer] [facility] [employer] Address [address] [place] [address] Phone Care Team Providers Name Role Phone Unavailable Primary Care Provider Unavailable Reason for Visit Reason Onset Date Comments Renal Cyst 02/20/2019 Encounter Details Date Type Department Care Team Description 02/20/2019 Telephone [facility] Deena Hadley RN Renal Cyst [address] [facility] [address] [place], [place] [address] Social History Tobacco Use Types Packs/Day Years [...] cysts. No need for follow up imaging. Embarr DownsTelephone Encounter - Deena Hadley RN - 03/11/2019 8:05 AM CST We had still not received the addended report for the CT done 02/17. The request made to [facility] was to have radiologist comment further on the renal cyst. I called again yesterday. The radiologist had dictated it but it was never transcribed and faxed. Per shingler, The bilateral renal cysts are simple in appearance. No further workup is needed. Telephone Encounter - Deena Hadley RN - 02/20/2019 4:08 PM CST Per the request of Dr. Maurer, I called [facility] where pts CT abd/pelvis was done. He is looking for more comments on the renal cyst noted on the US, is it simple or complex for example. health care technician is going to give the note [...]
--- OUTSIDE RECORDS SUMMARY | 2021-11-27 11:29 | XMS_ITS | Encounter Summary ---
:1945 Author Organization [employer] Address [address] [place] [address] Phone Care Team Providers Name Role Phone Unavailable Primary Care Provider Unavailable Reason for Visit Reason Comments Med Refill Encounter Details Date Type Department Care Team Description 10/01/2019 Refill [facility] Adrian Kern MD [address] [facility] [address] [facility] [address] [place] [address] [place] [address] [phone] (Wo rk) Social History Tobacco Use Types [...]
--- OUTSIDE RECORDS SUMMARY | 2021-11-27 11:29 | XMS_ITS | Encounter Summary ---
:1945 Author Organization [employer] Address [address], [place] [address] Phone Care Team Providers Name Role Phone Unavailable Primary Care Provider Unavailable Reason for Visit Reason Onset Date Comments Results 09/03/2019 Encounter Details Date Type Department Care Team Description 09/03/2019 [facility] Deena Hadley RN Results [address] [place] [address] Social History Tobacco Use Types Packs/Day Years [...] for September [address] Kern at [facility]. Prep instructions were mailed to Irma. [...]
--- OUTSIDE RECORDS SUMMARY | 2021-11-27 11:29 | XMS_ITS | Encounter Summary ---
:1945 Author Organization [employer] Address [address], [place] [address] Phone Care Team Providers Name Role Phone Unavailable Primary Care Provider Unavailable Reason for Visit Reason Onset Date Comments Results 08/04/2019 Encounter Details Date Type Department Care Team Description 08/04/2019 [facility] Deena Hadley RN Results [address] [place], [place] [address] Social History Tobacco Use Types Packs/Day Years [...] mom would like to establish care in [place] or if she would be coming back to [place] soon and then we should probablyscheduled FUV here to discuss next steps. Telephone Encounter - Audi Maurer MD - 08/04/2019 3:27 PM CDT She should probably find a local formula weigher if there is no plan to return to [place]. She will likely need a renal biopsy. elephone Encounter - Deena Hadley RN - 08/04/2019 1:33 PM CDT Repeat labs from [facility] in [place] will be scanned in under MEDIA. Senior Software Systems Engineer is up again. Are you thinking biopsy? Should we schedule a phone visit with pt in [place]? When I last spoke with her daughter there was no return to [place] scheduled. documented in this encounter Plan of Treatment Not on filedocumented as of this encounter Visit Diagnoses Not on filedocumented in this encounter
--- OUTSIDE RECORDS SUMMARY | 2021-11-27 11:29 | XMS_ITS | Encounter Summary ---
:1945 Author Organization [employer] [facility] [employer] Address [address] [place] [address] Phone Care Team Providers Name Role Phone Eusebia Whitaker MD Primary Care Provider Encounter Details Date Type Department Care Team Description 12/25/[address] Deena Hadley, [place] [address] [facility] [address] [place], [place] [address] Social History Tobacco Use Types Packs/Day Years [...] got the report and when I called [facility] they said she didn't have it done. I talked with her daughter, Irma, today. Courtney was admitted to [facility] in [place] shortly after visit here. ECHO was done [...] on filedocumented in this encounter Care Teams Event Lighting Specialist Relationship Specialty Start Date End Date Eusebia Whitaker MD PCP - General Family Medicine 11/24/19 [address] [facility] [address] [place] [address] documented as of this encounter
--- OUTSIDE RECORDS SUMMARY | 2021-11-27 11:29 | XMS_ITS | Encounter Summary ---
:1945 Author Organization [employer] [facility] [employer] Address [address] [place] [address] Phone Care Team Providers Name Role Phone Unavailable Primary Care Provider Unavailable Reason for Visit Reason Onset Date Comments Follow-up 06/20/2019 Encounter Details Date Type Department Care Team Description 06/20/2019 Telephone [facility] Deena Hadley RN Follow-up [address] [facility] [address] [place], [place] [address] Social History Tobacco Use Types Packs/Day Years [...] 06/23/2019 1:10 PM CDT Orders faxed to [facility] in [place]. Irma informed. elephone Encounter - Audi Maurer MD - 06/23/2019 10:20 AM CDT That's fine. She can get - RFP, CBC, UA, UPCR locally and have it sent to us. elephone Encounter - Deena Hadley RN - 06/20/2019 10:44 AM CDT Courtney is in [place] visiting family. She is not wanting to [...]
--- OUTSIDE RECORDS SUMMARY | 2021-11-27 11:29 | XMS_ITS | Encounter Summary ---
:1945 Author Organization [employer] Address [address] [place] [address] Phone Care Team Providers Name Role Phone Eusebia Whitaker MD Primary Care Provider Encounter Details Date Type Department Care Team Description 11/28/2019 Office Visit [facility] Gisela Maurer MD Chronic kidney disease stage 4 (CMS-HCC) (Primary Dx); [facility] [address] Essential (primary) hyperten mana; [address] Anemia in chronic kidney disease; [address] [place] [address] [place], [place] [phone] [address] Social History Tobacco Use Types Packs/Day Years [...] y.o. female with PMH of female from [facility] , whom I had initially [...] was planned when she traveled over from [place] but had to be canceled on the [...] - lt base CV =s1+s2 [place] =soft GAME ROOM ATTENDANT - nonfocal LE Edema, b/l pitting. Audi Maurer MD [facility] [phone] No orders of the defined types were placed in this encounter. documented in this encounter Plan of Treatment Not on filedocumented as of this encounter Visit Diagnoses Diagnosis Chronic kidney disease stage 4 (CMS-HCC) - Primary Essential (primary) hypertension Anemia in chronic kidney disease Isolated proteinuria documented in this encounter Care Teams [employer] Truck Driver Relationship Specialty Start Date End Date Eusebia Whitaker MD PCP - General Family Medicine 11/24/[address] [place] [address] documented as of this encounter
--- OUTSIDE RECORDS SUMMARY | 2021-11-27 11:29 | XMS_ITS | Encounter Summary ---
:1945 Author Organization [employer] Address [address] [place] [address] Phone Care Team Providers Name Role Phone Unavailable Primary Care Provider Unavailable Encounter Details Date Type Department Care Team Description 08/08/2019 Office Visit [facility] Gisela Maurer MD Chronic kidney disease stage 4 (CMS-HCC) (Primary Dx); [facility] [address] Isolated proteinuria; [address] Essential (primary) hypertension; [address] Hyperlipidemia, not otherwise specified; [place] [address] [place], [place] Anemia in chronic kidney dis ease [phone] Social History Tobacco Use Types Packs/Day Years [...] mg BID ( monitor HR) Labs at [place] in 2 wks. If stable / worse, pt will come back to [facility] and plan on getting a renal biopsy done. 2) Proteinuria: see above. 3) Anemia: Hgb 10.1 on 08/01/19. Iron sat 22% in Feb. Check with next lab. 4) terminal makeup operator (current) use of non-steroidal anti-inflammatories (NSAID): now [...] y.o. female with PMH of female from [facility] , whom I had initially seen [...] - HBA1C 5.6-5.8 Pt is currently in [place] with her daughter. Reports she is doing [...] were reviewed. Audi Maurer MD [facility] [phone] No orders of the defined types were placed in this encounter. documented in this encounter Plan of Treatment Not on filedocumented as of this encounter Visit Diagnoses Diagnosis Chronic kidney disease stage 4 (CMS-HCC) - Primary Isolated proteinuria Essential (primary) hypertension Hyperlipidemia, not otherwise specified Anemia in chronic kidney disease documented in this encounter
--- OUTSIDE RECORDS SUMMARY | 2021-11-27 11:30 | XMS_ITS | Encounter Summary ---
:1945 Author Organization [employer] Address [address] [place] [address] Phone Care Team Providers Name Role Phone Unavailable Primary Care Provider Unavailable Encounter Details Date Type Department Care Team Description 02/07/2019 Orders Only [facility] Audi Maurer MD [address] [facility] [address] [facility] [address] [place] [address] [place] [address] [phone] (Wo rk) Social History Tobacco Use Types [...] ID: CB ?Name: [facility] ?Address: [address] [place] [address] [place] [address] ?Director: Ramiro Fitzpatrick M.D. Audi Maurer MD [...] (D2,D3), LC/MS/MS is recomm ended: order code 72305 (patients >2yrs). For more information on this test, go to : http://education.ChupaMobile.Capt'nSocial/fa q/YJK188 (This link is being provided for informational/educational purposes only. ) Specimen Anatomical Collection Method Collection Time Receive d Time (Source) Location / / Volume Laterality 02/07/2019 9:20 AM 9 9:25 CDT AM CDT Resulting Agency Comment Performing Organization Information: ?Site ID: CB ?Name: [facility]phonse ArceAaliyah[facility] Gardiner ?Address: [address] [place] [address] [place]añ[place] [address] ?Director: Ramiro Fitzpatrick M.D. Audi Maurer MD [...] ?Site ID: CB ?Name: Alphonse Gardiner ?Address: [address] [place], [place] [address], [place] [address] ?Director: Ramiro Fitzpatrick M.D. Audi Maurer MD LAB BLOOD ORDERABLES Performing Organization Address [facility]/ZIP Code Phon e Number [facility] [place] ([place]) Ferritin, Serum (02/07/2019 9:20 AM CDT) P athologist Signature Ferritin, 54 16 - 288 [facility] - Serum/Plasma ng/mL [place] (WDL) Specimen Anatomical Collection Method Collection Time Receive d Time (Source) Location / / Volume Laterality 02/07/2019 9:20 AM 9 9:25 CDT AM CDT Resulting Agency Comment Performing Organization Information: ?Site ID: ?Name: Alphonse Gardiner ?Address: [address] [place], [place] [address], [place] [address] ?Director: Ramiro Fitzpatrick M.D. Audi Maurer MD LAB BLOOD ORDERABLES Performing Organization Address [facility]/ZIP Code Phon e Number [facility] [place] [...] t est for HCV RNA (test code 26048) is suggested. For additional information please refer to http://education.ChupaMobile.Capt'nSocial/fa q/ZVA64w1 (This link is being provided for informa tional/ educational purposes only.) Specimen Anatomical Collection Method Collection Time Receive d Time (Source) Location / / Volume Laterality 02/07/2019 9:20 AM 9 9:25 CDT AM CDT Resulting Agency Comment Performing Organization Information: ?Site ID: CB ?Name: [facility]ce[facility] ?Address: [address] [place], [place] [address]jerzy [place]añ[place], [place] [address] ?Director: Ramiro Fitzpatrick M.D. Audi Maurer MD LAB BLOOD ORDERABLES Performing Organization Address [facility]/ZIP Code Phon e Number [facility] [place] [...] ID: CB ?Name: [facility] ?Address: [address] [place], [place] [address]jerzy [place]añ[place], [place] [address] ?Director: Ramiro Fitzpatrick M.D. Audi Maurer MD LAB BLOOD ORDERABLES Performing Organization Address [facility] Code Phon e Number [facility] [place] [...] ID: CB ?Name: [facility] Arce-[facility] Gard[facility] ?Address: [address] [place], [place] [address]jerzy [place]añ[place], [place] [address] ?Director: Ramiro Fitzpatrick M.D. Audi Maurer MD LAB BLOOD ORDERABLES Performing Organization Address City/State/ZIP Code Phon e Number [facility] ([facility]) ANCA Screen w/ Vasculitides (MPO, PR3) (02/07/2019 9:20 AM CDT) [facility] Method Time Signature Myeloperoxidase Ab, <1.0 AI [facility] - Serum [place] (WDL) Comment: ? Value ?Interpretation ? ----- [...] ?? Antibody Detected ? Autoantibodies to proteinase-3 (HI-3) ar e accepted as characteristic for granulomatosis with p olyangiitis (GPA, Gianna's), and are detectable in 95% of the histologically proven cases. The cytopla smic IFA pattern, (c-ANCA), is based largely on a utoantibody to HI-3 which serves as the primary antigen . These autoantibodies are present in acti ve disease. Specimen Anatomical Collection Method Collection Time Receive d Time (Source) Location / / Volume Laterality 02/07/2019 9:20 AM 9 9:25 CDT AM CDT Resulting Agency Comment Performing Organization Information: ?Site ID: CB ?Name: Alphonse Gardiner ?Address: [address] [place] [address] [place]añ[place] [address] ?Director: Ramiro Fitzpatrick M.D. Audi Maurer MD LAB BLOOD ORDERABLES Performing Organization Address City/State/ZIP Code Phon e Number [facility] [place] ([place]) (ABNORMAL) [place]rest and Lambda Free Light Chains, Qn, Serum (02/07/2019 9:20 AM CDT) athologist Signature [place]rest light 56.2 (H) 3.3 - 19.4 [facility] - chains, free, mg/L [place] Serum (WDL) Lambda light 28.8 (H) 5.7 - 26.3 [facility] - chains, free, mg/L [place] Serum/Plasma (WDL) Everest light 1.95 (H) 0.26 - [facility] - [...] ?Site ID: CB ?Name: Alphonse Gardiner ?Address: [address] [place] [address] [place] [address] ?Director: Ramiro Fitzpatrick M.D. Audi Maurer MD LAB BLOOD ORDERABLES Performing Organization Address City/[facility]/ZIP Code Phon e Number [facility] [place] [...] Organization Information: ?Site ID: CB ?Name: [facility] ?Address: [address] [place], [place] [address] [address] ?Director: Ramiro Fitzpatrick M.D. Audi Maurer MD LAB BLOOD ORDERABLES Performing Organization Address [facility] Code Phon e Number [facility] [place] ([place]) Immunofixation, Serum (02/07/2019 9:20 AM CDT) [facility] gist Method Time Signature Immunofixation for [facility] - Serum/Plasma [place] (WDL) Comment: No monoclonal immunoglobulin detected. Specimen Anatomical Collection Method Collection Time Receive d Time (Source) Location / / Volume Laterality 02/07/2019 9:20 AM 9 9:25 CDT AM CDT Resulting Agency Comment Performing Organization Information: ?Site ID: CB ?Name: [facility] ?Address: [address] [place] [address] [place] [address] ?Director: Ramiro Fitzpatrick M.D. Audi Maurer MD LAB URINE ORDERABLES Performing Organization Address [facility] Phon e Number [facility] [place] [...] AC-0: Negative International Consensus on KOMAL Patterns (https://doi.org/10.1515/tnip-4990-4207) For additional information, please refer to http://education.Taomee.Capt'nSocial/fa q/RPJ190 (This link is being provided for informa tional/ educational purposes only.) ?? Specimen Anatomical Collection Method Collection Time Receive d Time (Source) Location / / Volume Laterality 02/07/2019 9:20 AM 9 9:25 CDT AM CDT Resulting Agency Comment Performing Organization Information: ?Site ID: CB ?Name: [facility] ?Address: [address] [place], [place] [address] [address] ?Director: Ramiro Fitzpatrick M.D. Audi Maurer MD [...] Performing Organization Information: ?Site ID: CB ?Name: [facility] ?Address: [address] [place] [address] [place] [address] ?Director: Ramiro Fitzpatrick M.D. Audi Maurer MD [...] ID: CB ?Name: [facility] ?Address: [address] [place] [address] [place] [address] ?Director: Ramiro Fitzpatrick M.D. Audi Maurer MD [...] Organization Information: ?Site ID: CB ?Name: [facility] ?Address: [address] [place] [address] [place] [address] ?Director: Ramiro Fitzpatrick M.D. Audi Maurer MD [...] 13% high er for people identified as -Syrian. eGFR, non 24 (L) > OR = 60 mL/min/1.73m2 [facility] [place] ([place]) Syrian eGFR, 28 (L) > OR = 60 [...] ID: CB ?Name: [facility] ?Address: [address] [place], [place] [address] [address] ?Director: Ramiro Fitzpatrick M.D. Audi Maurer MD LAB BLOOD ORDERABLES Performing Organization Address [facility] Phon e Number [facility] [place] [...] ID: CB ?Name: [facility] ?Address: [address] [place] [address] [place] [address] ?Director: Ramiro Fitzpatrick M.D. Audi Maurer MD LAB BLOOD ORDERABLES Performing Organization Address [facility] Phon e Number [facility] [place] [...] Organization Information: ?Site ID: CB ?Name: [facility] ?Address: [address] [place] [address] [place] [address] ?Director: Ramiro Fitzpatrick M.D. Audi Maurer MD LAB BLOOD ORDERABLES Performing Organization Address [facility] Code Phon e Number [facility] [place] [...] Organization Information: ?Site ID: CB ?Name: [facility] ?Address: [address] [place], [place] [address] [address] ?Director: Ramiro Fitzpatrick M.D. Audi Maurer MD LAB BLOOD ORDERABLES Performing Organization Address City/[facility]/ZIP Code Phon e Number [facility] [place] ([place]) documented in this encounter Visit Diagnoses Not on filedocumented in this encounter
--- OUTSIDE RECORDS SUMMARY | 2021-11-27 11:31 | XMS_ITS | Encounter Summary ---
:1945 Author Organization [facility] Address [address] [place] [address] Care Team Providers Name Role Phone Unavailable Primary Care Provider Unavailable Encounter Details Date Type Department Care Team Description 10/17/2021 Orders Only Department of Radiology in [place], [place] SOCKET WELDER HELPER, C.N.P. [address] [facility] [address] [place] [address] [place], [place] [phone] (Wo rk) Social History Tobacco Use Types [...]
--- OUTSIDE RECORDS SUMMARY | 2021-11-27 11:31 | XMS_ITS | Encounter Summary ---
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 Stage Renal Disease [place] [address] [facility] Dialysis Dependent (HCC) [address] [place] [address] [phone] (Wo rk) Social History Tobacco Use Types [...] 2, PCR, V (11/02/2021 11:08 AM CDT) [facility] Method Time Signature SARS-Coronavi Undetected Undetected 11/02/2021 [facility] vanessa-2, PCR 2:48 PM CDT Comment: SARS-CoV-2 RNA absent. ?? ----ADDITIONAL INFORMATION---- This RT-PCR test using the Xpert Xpress SARS-CoV-2/Flu/RSV assay ([employer] performed on the Curoverse rt DX systems has received Emergency Use Authorization (EU A) by the U.S. Food and Drug Administration. Performanc e characteristics were verified by [facility] inic in a manner consistent with CLIA requirements . Fact sheets for this Emergency Use Autho rization (EUA) assay can be found at the following link s: For Healthcare Providers: https://www.fda.gov/media/154918/downloa d For Patients: https://www.fda.gov/media/147864/downloa d Specimen Source Nasopharyngeal Swab 11/02/2021 1:3 0 PM CDT [facility] Specimen Anatomical Collection Method Collection Time Receive d Time (Source) Location / / Volume Laterality Varies 11/02/2021 11:08 11/02/2021 1:30 AM CDT PM CDT Kyler Ibarra LAB MICROBIOLOGY - GENERAL O RDERABLES Performing Organization Address City/State/ZIP Code Phon e Number [facility]- [address] [place] [address] [place] [address] System in [place] [address] documented in this encounter Visit Diagnoses Diagnosis Chronic Failure Renal End Stage Renal Di sease Dialysis Dependent (HCC) documented in this encounter Additional Health Concerns Infection Onset Date Last Indicated Resolved Time COVID19 Pending 11/01/2021 11/02/2021 11/02/2021 1:30 PM CDT documented as of this encounter
--- OUTSIDE RECORDS SUMMARY | 2021-11-27 11:31 | XMS_ITS | Encounter Summary ---
:1945 Author Organization [facility] Address [address] [place] [address] Care Team Providers Name Role Phone Unavailable Primary Care Provider Unavailable Reason for Visit Reason Comments needs RX for gabapentin Encounter Details Date Type Department Care Team Description 07/22/2021 Clinical Division of Micky, needs RX for Communication Nephrology and Randal Whitehead Jr., gabapentin Hypertension in [place], [place] [address] [facility] [address] [place] [address] [phone] Social History Tobacco Use Types Packs/Day Years [...] would like it to be called into [facility] in [place] at [phone]. Thanks documented in this encounter Plan of Treatment Scheduled Procedures Name Priority Associated Diagnoses Date/Time PLACEMENT ARTERIOVENOUS GRAFT UPPER Chronic Kidn ey Disease Stage 5 EXTREMITY Glomerular Filtration Rate Less Than 15 (HCC) documented as of this encounter Visit Diagnoses Not on filedocumented in this encounter
--- OUTSIDE RECORDS SUMMARY | 2021-11-27 11:31 | XMS_ITS | Encounter Summary ---
:1945 Author Organization [facility] Address [address] [place] [address] Care Team Providers Name Role Phone Unavailable Primary Care Provider Unavailable Encounter Details Date Type Department Care Team Description 07/18/2021 Documentation Division of Nephrology and Dave Weeks Hypertension in [place], , [place].O. [place] [address] [facility] [address] [place] [address] [phone] (Wo rk) Social History Tobacco Use Types [...]
--- OUTSIDE RECORDS SUMMARY | 2021-11-27 11:31 | XMS_ITS | Encounter Summary ---
:1945 Author Organization [facility] Address [address] [place] [address] Care Team Providers Name Role Phone Unavailable Primary Care Provider Unavailable Reason for Referral Outpatient (Routine) - Closed Specialty Diagnoses / Procedures Referred By Contact Refer red To Contact Radiology Diagnoses Complication Dialysis Catheter Initial Jenna Neri APRN, C.N.P. [facility] Procedures IR Dialysis / High Flow Catheter Exchange [address] [place], [place] [address] Referral ID Status Reason Start Date Expiration Date Visits Requ ested Visits Authorized [id number] Closed 10/19/2021 10/19/2022 1 1 Reason for Visit Outpatient (Routine) - Closed Specialty Diagnoses / Procedures Referred By Contact Refer red To Contact Radiology Diagnoses Complication Dialysis Catheter Initial Jenna Neri APRN, C.N.P. [facility] Procedures IR Dialysis / High Flow Catheter Exchange [address] [place] [address] Referral ID Status Reason Start Date Expiration Date Visits Requ ested Visits Authorized [id number] Closed 10/19/2021 10/19/2022 1 1 Encounter Details Date Type Department Care Team Description 10/21/2021 Hospital Encounter Department of Jenna Neri Complica tion Dialysis Radiology in [place], C.N.P. Catheter Initial [place], [place] [address] [place] [phone] Social History Tobacco Use Types Packs/Day Years [...] through Care Everywhere.Your High-Flow Central Venous Catheter (Kittitian)documented in this encounter Medications at Time of [...] tunneled dialysis catheter exchange done today in [facility]. Condition at Transfer stable OBJECTIVE VITAL SIGNS [...] jugular dialysis catheter exchange done today in [facility]. Postprocedure, patient had moderate amount of bleeding to the puncture site, saturating dressing. Dressing removed, hemostatic agents D stat and Quick clot, Hemostasis obtained, to be changed tomorrow at dialysis. Plan: Pt ready for discharge accompanied by her daughter. Follow-up with dialysis as instructed. For any questions or concerns regarding this patient please page Vascular Interventional Radiology INSTRUMENT ADJUSTER/PA at [phone] Sunday through Sunday 7 a.m. to 5 p.m. or Vascular Interventional Radiology on-callresident at [phone] after 5 p.m. and on weekends. Mine [...] and dr aped in sterile fashion. Fluoroscopic telecom engineer image demonstrates a tunneled dialysis cathete r in place. Using lidocaine 1% for local anesthesia, blunt dissection was performed freeing the cat heter cuff. Catheter was removed in its entirety over two stiff Glidewires. A 9-Sudanese Brite Tip s azul placed, and a [...] and dr aped in sterile fashion. Fluoroscopic telecom engineer image demonstrates a tunneled dialysis cathete r in place. Using lidocaine 1% for local anesthesia, blunt dissection was performed freeing the cat heter cuff. Catheter was removed in its entirety over two stiff Glidewires. A 9-Sudanese Brite Tip s azul placed, and a [...]
--- OUTSIDE RECORDS SUMMARY | 2021-11-27 11:31 | XMS_ITS | Encounter Summary ---
:1945 Author Organization [facility] Address [address] [place] [address] Care Team Providers Name Role Phone Unavailable Primary Care Provider Unavailable Encounter Details Date Type Department Care Team Description 10/19/2021 Documentation Division of Nephrology and Jenna Neri APRN, Hypertension, Christianity C.N.P. [place], in [place], [facility] [address] [place], [place] [address] [place] [address] [place] [address] [phone] Social History Tobacco Use Types Packs/Day Years [...] currently being maintained in in-center hemodialysis at [facility] at [place], [place] on a Sunday, and Saturdayschedule. She has medical history includes hypertension, COPD, peripheral arterial disease, chronic right heart failure and diabetes mellitus type 2 (diet control). She is dialyzing through her right IJ tunnel. She is scheduled for AV graft of left brachial artery to axillary vein graft placement by Dr. Vidal at [facility] in [facility] on November 04 2021. She feels well. [...]
--- OUTSIDE RECORDS SUMMARY | 2021-11-27 11:31 | XMS_ITS | Encounter Summary ---
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 [address] [place] [address] Referral ID Status Reason Start Date Expiration Date Visits Requ ested Visits Authorized [id number] Closed 09/19/2021 09/19/2022 1 1 Encounter Details Date Type Department Care Team Description 10/17/2021 Nurse Only Division of Nephrology and Randal Painter Jr., D.O. [address] [place] [phone] Hypertension in [facility] Justo Velasquez, [place] [address] [place], [place] [address] Social History Tobacco Use Types Packs/Day [...]
--- OUTSIDE RECORDS SUMMARY | 2021-11-27 11:31 | XMS_ITS | Encounter Summary ---
:1945 Author Organization [facility] Address [address] [place] [address] Care Team Providers Name Role Phone Unavailable Primary Care Provider Unavailable Reason for Referral Outpatient (Routine) - Closed Specialty Diagnoses / Procedures Referred By Contact Refer red To Contact Radiology Diagnoses Complication Dialysis Catheter Initial Jenna Neri APRN, C.N.P. [facility] Procedures IR Dialysis / High Flow Catheter Exchange [address] [place] [address] Referral ID Status Reason Start Date Expiration Date Visits Requ ested Visits Authorized [id number] Closed 10/19/2021 10/19/2022 1 1 Encounter Details Date Type Department Care Team Description 10/19/2021 Orders Only Division of Nephrology Jenna Neri, Compl ication Dialysis and Hypertension, GLADYS, C.N.P. Catheter Initial [place], in 200 [facility] (Primary Dx) [place], [place] [address] [place] [address] [place], [place] [phone] (Work) [phone] Social History Tobacco Use Types Packs/Day Years [...] and dr aped in sterile fashion. Fluoroscopic market reporter image demonstrates a tunneled dialysis cathete r in place. Using lidocaine 1% for local anesthesia, blunt dissection was performed freeing the cat heter cuff. Catheter was removed in its entirety over two stiff Glidewires. A 9-Bahamian Brite Tip s azul placed, and a [...] and dr aped in sterile fashion. Fluoroscopic market reporter image demonstrates a tunneled dialysis cathete r in place. Using lidocaine 1% for local anesthesia, blunt dissection was performed freeing the cat heter cuff. Catheter was removed in its entirety over two stiff Glidewires. A 9-Bahamian Brite Tip s azul placed, and a [...]
--- OUTSIDE RECORDS SUMMARY | 2021-11-27 11:31 | XMS_ITS | Encounter Summary ---
:1945 Author Organization [facility] Address [address] [place] [address] Care Team Providers Name Role Phone Unavailable Primary Care Provider Unavailable Encounter Details Date Type Department Care Team Description 10/17/2021 Documentation Division of Nephrology and Justo Sauer R.N. Hypertension in [place], ( Work) [place] [address] [place] [address] Social History Tobacco Use Types Packs/Day [...] initiated hemodialysis on 06/15/21. ??She dialyzes at [facility] on a Sunday, and Sunday schedule. Significant [...] with the patient via phone: Hemodialysis Catheters ([id number]), Hemodialysis Fistula and Graft ([id number]). She received an red Save your Vein bracelet. Per Dr. Weeks's note on 06/07/21 We have discussed home dialysis modalities, she is currently not interested in these. ??She is not a transplant candidate. ??All questions were answered. ? Surgeon: Patient seen by Dr. Vidal Plan: ??Left Brachial Axillary AV Graft Surgery: Is scheduled for 11/04/21. Checklist: The Checklist for Surgical Patients ([id number]) was given to the patient with the following instructions: Report to [facility] admissions at the time told to you when you call in the night before. Report fasting after midnight, no am breakfast, but take your am meds with water. Insulin Directions: ??N/A Anticoagulation medications directions: ??N/A COVID-19 Testing: Ordered for [facility] on 10/31/21 BLACK: ??Dr. Weeks and [...]
--- OUTSIDE RECORDS SUMMARY | 2021-11-27 11:31 | XMS_ITS | Encounter Summary ---
:1945 Author Organization [facility] Address [address] [place] [address] Care Team Providers Name Role Phone Unavailable Primary Care Provider Unavailable Reason for Visit Outpatient (Routine) - Closed Specialty Diagnoses / Procedures Referred By Contact Refer red To Contact Nephrology and Diagnoses Chronic Kidney Disease Stage 5 Glomerular Filtration Rate Less Than 15 (HCC) Anemia Of Chronic Renal Disease Hyperparathyroidism Renal Secondary (HCC) Apnea Sleep Obstructive Randal Weeks [facility] Hypertension / Dialysis , D.OGatito 200 [place] [address] Referral ID Status Reason Start Date Expiration Date Visits Requ ested Visits Authorized [id number] Closed 09/17/2021 09/17/2022 1 1 Encounter Details Date Type Department Care Team Description 10/17/2021 Comprehensive Visit Division of Brea Weeks Jr., D.O. [address] [place] [address] Chronic Kidney Disease Stage 5 Glomerula r Filtration Rate Less Than 15 (HCC) (Primary Dx); Vascular and Kyler Vidal M.B.B.S. [address] [place] [address] Anemia Of Chronic Renal Disease; Endovascular Hyperparathyroi dism Renal Secondary (HCC); Surgery in Apnea Sleep Obs [place] [address] [place] [address] Social History Tobacco Use Types [...]
--- OUTSIDE RECORDS SUMMARY | 2021-11-27 11:31 | XMS_ITS | Encounter Summary ---
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 200 [place] [address] Referral ID Status Reason Start Date Expiration Date Visits Requ ested Visits Authorized [id number] Closed 10/17/2021 10/17/2022 1 1 Encounter Details Date Type Department Care Team Description 10/17/2021 Hospital Encounter Department of Micky, Chronic Failure Radiology, Marixa Whitehead Jr., Renal End Stage Building, in D.O. Renal Disease [place], [place] [address] [facility] Dialysis Dependent [address] [place], [place] (HCC) [place] [phone] Social History Tobacco Use Types Packs/Day Years [...]
--- OUTSIDE RECORDS SUMMARY | 2021-11-27 11:31 | XMS_ITS | Encounter Summary ---
:1945 Author Organization [facility] Address [address] [place] [address] Care Team Providers Name Role Phone Unavailable Primary Care Provider Unavailable Reason for Referral Outpatient (Routine) - Closed Specialty Diagnoses / Procedures Referred By Contact Refer red To Contact Nephrology and Diagnoses Chronic Failure Renal End Stage Renal Disease Dialysis Dependent (HCC) Randal Weeks [facility] Hypertension Melvin Bolden 200 [place] [address] Referral ID Status Reason Start Date Expiration Date Visits Requ ested Visits Authorized [id number] Closed 09/19/2021 09/19/2022 1 1 Encounter Details Date Type Department Care Team Description 09/19/2021 Orders Only Division of Nephrology Emilia Shelton , Chronic Failure Renal and Hypertension in R.N. End Stage Renal [place], [place] [address] [facility] [address] [place], [place] Dependent ([place]) [place] [address] (Primary Dx) [address] [phone] Social History Tobacco Use Types Packs/Day Years [...]
--- OUTSIDE RECORDS SUMMARY | 2021-11-27 11:31 | XMS_ITS | Encounter Summary ---
:1945 Author Organization [facility] Address [address] [place] [address] Care Team Providers Name Role Phone Unavailable Primary Care Provider Unavailable Encounter Details Date Type Department Care Team Description 09/06/2021 Orders Only Division of Nephrology and Shlomo Weeks Hypertension in [place], ., D.O. [place] [address] [facility] [address] [place] [address] [phone] (Wo rk) Social History Tobacco Use Types [...]
--- OUTSIDE RECORDS SUMMARY | 2021-11-27 11:31 | XMS_ITS | Encounter Summary ---
:1945 Author Organization [facility] Address [address] [place] [address] Care Team Providers Name Role Phone Unavailable Primary Care Provider Unavailable Reason for Visit Reason Comments Med Refill Encounter Details Date Type Department Care Team Description 08/09/2021 Refill Department of Nephrology in [facility], Randal Whitehead Jr., Med Refill [place], [place] D.O. [address] [place] [address] [place] [address] [phone] (Wo rk) Social History Tobacco Use Types [...]
--- OUTSIDE RECORDS SUMMARY | 2021-11-27 11:31 | XMS_ITS | Encounter Summary ---
:1945 Author Organization [facility] Address [address] [place] [address] Care Team Providers Name Role Phone Unavailable Primary Care Provider Unavailable Encounter Details Date Type Department Care Team Description 08/01/2021 Orders Only Department of Nephrology in [facility] Dave Whitehead Jr.[place], [place] D.O. [address] [place] [address] [place], [place] [phone] (Wo rk) Social History Tobacco Use Types [...]
--- OUTSIDE RECORDS SUMMARY | 2021-11-27 11:31 | XMS_ITS | Encounter Summary ---
:1945 Author Organization [facility] Address [address] [place] [address] Care Team Providers Name Role Phone Unavailable Primary Care Provider Unavailable Encounter Details Date Type Department Care Team Description 07/22/2021 Orders Only Division of Nephrology Randal Weeksension And Chronic Kidney Disease Stage 5 (HCC) (Primary Dx); and Hypertension in Charley Bolden D.O. Anemia Of Chronic Renal Disease [place], [place] [address] [facility] [address] [place] [phone] Social History Tobacco Use Types Packs/Day Years [...]
--- OUTSIDE RECORDS SUMMARY | 2021-11-27 11:31 | XMS_ITS | Clinical Summary ---
:[address] [facility] Address [address] [place] [address] Care Team Providers Name Role Phone Unavailable Primary Care Provider Unavailable Source Comments Patient records contain information from all sites at [facility]. For routine questions regarding patient records, call [phone] during business hours, M-F 8:00 AM - 5:00 PM Central Time. Record requests for emergency care only can be directed to [phone] at any time.[facility] Allergies No known active allergies Medications Medication [...] End Stage Renal Disease Dialysis Depend ent ([facility]) 10/21/2021 Hospital Encounter Radiology Jenna Neri, Complicat ion Dialysis FLOORING MECHANIC, C.N.P. Catheter Initia l 10/19/2021 Documentation Dialysis Jenna Neri P, FLOORING MECHANIC, C.N.P. 10/19/2021 Documentation Nephrology and [place], Hypertension Emilia Nguyen, R.NGatito 10/19/2021 Orders Only Dialysis Jenna Neri P, Complication Di alysis FLOORING MECHANIC, C.N.P. Catheter Initia l (Primary Dx) 10/17/2021 Comprehensive Visit Vascular Surgery Gaby Weeks myrna Kidney Disease Stage 5 Glomerular Filtration Rate Less Than 15 ([facility]) (Primary Dx); Randal Whitehead Jr., Anemia Of Service Person myrna Renal Disease; D.O. Hyperparathyroidism Renal Secondary ([facility] ); Kyler Vidal, Apnea Sleep Ob structive M.B.B.S. 10/17/2021 Hospital Encounter Radiology Wanda Weeks F ailure Renal Randal Whitehead Jr., End Stage [place] l Disease D.O. Dialysis Depend ent ([facility]) 10/17/2021 Nurse Only Nephrology and Micky, Hypertension Randal Whitehead Jr., D.O. Justo Sauer RShaggy 10/17/2021 Hospital Encounter Radiology Micky, Chronic K idney Disease Stage 5 Glomerular Filtration Rate Less Than 15 (HCC); Randal Whitehead Jr., Anemia Of Service Person myrna Renal Disease; D.O. Hyperparathyroi dism Renal Secondary (HCC); Apnea Sleep Obs tructive 10/17/2021 Documentation Nephrology and Justo Sauer A, Hypertension R.N. 10/17/2021 Orders Only Nephrology and SauerJusto husain A, Chronic Fail ure Renal Hypertension R.N. End Stage Renal Disease Dialysis Depend ent ([facility]) (Primary Dx) 10/17/2021 Orders Only Radiology Tiffanie Reynoso, FLOORING MECHANIC, C.N.P. 10/17/2021 Orders Only Dialysis Sauer, Justo A, Chronic Failur e Renal R.N. End Stage Renal Disease Dialysis Depend ent ([facility]) (Primary Dx) 09/19/2021 Orders Only Nephrology and [place], Chronic Failu re Renal Hypertension Emilia M, End Stage Renal Disease R.N. Dialysis Depend ent ([facility]) (Primary Dx) 09/17/2021 Orders Only Nephrology and [place], Chronic Kidne y Disease Stage 5 Glomerular Filtration Rate Less Than 15 ([facility]) (Primary Dx); Hypertension Randal Whitehead Jr., Anemia Of Service Person myrna Renal Disease; D.O. Hyperparathyroi dism Renal Secondary (HCC); Apnea Sleep Obs tructive 09/06/2021 Orders Only Nephrology and [place], Hypertension Randal Whitehead Jr., D.O. 09/02/2021 Orders Only Dialysis Jenna Neri, FLOORING MECHANIC, C.N.P. 09/02/2021 Clinical Nephrology and [place], Communication Hypertension Randal Whitehead Jr., D.O. from [...] 2, PCR, V (11/02/2021 11:08 AM CDT) [facility] Method Time Signature SARS-Coronavi Undetected Undetected 11/02/2021 [facility] vanessa-2, PCR 2:48 PM CDT Comment: SARS-CoV-2 RNA absent. ?? ----ADDITIONAL INFORMATION---- This RT-PCR test using the Xpert Xpress SARS-CoV-2/Flu/RSV assay ([employer] performed on the [employer] rt DX systems has received Emergency Use Authorization (EU A) by the U.S. Food and Drug Administration. Performanc e characteristics were verified by [facility] inic in a manner consistent with CLIA requirements . Fact sheets for this Emergency Use Autho rization (EUA) assay can be found at the following link s: For Healthcare Providers: https://www.fda.gov/media/842841/downloa d For Patients: https://www.fda.gov/media/543099/downloa d Specimen Source Nasopharyngeal Swab 11/02/2021 1:3 0 PM CDT [facility] Specimen Anatomical Collection Method Collection Time Receive d Time (Source) Location / / Volume Laterality Varies 11/02/2021 11:08 11/02/2021 1:30 AM CDT PM CDT Kyler Ibarra LAB MICROBIOLOGY - GENERAL O RDERABLES Performing Organization Address City/State/ZIP Code Phon e Number [facility] [address] [place] [address] [facility] [place] [address] System in [place] [address] IR Dialysis / [...] and dr aped in sterile fashion. Fluoroscopic butcherette image demonstrates a tunneled dialysis cathete r in place. Using lidocaine 1% for local anesthesia, blunt dissection was performed freeing the cat heter cuff. Catheter was removed in its entirety over two stiff Glidewires. A 9-Ethiopian Brite Tip s azul placed, and a [...] and dr aped in sterile fashion. Fluoroscopic butcherette image demonstrates a tunneled dialysis cathete r in place. Using lidocaine 1% for local anesthesia, blunt dissection was performed freeing the cat heter cuff. Catheter was removed in its entirety over two stiff Glidewires. A 9-Ethiopian Brite Tip s azul placed, and a [...] Effective Dates Phone Addre ss Type Group [facility] [email or web address] 2021-Present [phone] [address] [place] [address]
--- OUTSIDE RECORDS SUMMARY | 2021-11-27 11:31 | XMS_ITS | Encounter Summary ---
:1945 Author Organization [facility] Address [address] [place] [address] Care Team Providers Name Role Phone Unavailable Primary Care Provider Unavailable Reason for Referral Outpatient (Routine) - Closed Specialty Diagnoses / Procedures Referred By Contact Refer red To Contact Diagnoses Chronic Kidney Disease Stage 5 Glomerular Filtration Rate Less Than 15 (HCC) Anemia Of Chronic Renal Disease Hyperparathyroidism Renal Secondary (HCC) Apnea Sleep Obstructive Randal Weeks Jr., [facility] Procedures US Upper Extremity Left Dialysis Mapping D.O. 200 [place], [place] [address] Referral ID Status Reason Start Date Expiration Date Visits Requ ested Visits Authorized [id number] Closed 09/17/2021 09/17/2022 1 1 Reason for Visit Outpatient (Routine) - Closed Specialty Diagnoses / Procedures Referred By Contact Refer red To Contact Diagnoses Chronic Kidney Disease Stage 5 Glomerular Filtration Rate Less Than 15 (HCC) Anemia Of Chronic Renal Disease Hyperparathyroidism Renal Secondary (HCC) Apnea Sleep Obstructive Randal Weeks Jr., [facility] Procedures US Upper Extremity Left Dialysis Mapping D.O. 200 [place], [place] [address] Referral ID Status Reason Start Date Expiration Date Visits Requ ested Visits Authorized [id number] Closed 09/17/2021 09/17/2022 1 1 Encounter Details Date Type Department Care Team Description 10/17/2021 Hospital Department of Micky, Chronic Kidney Disease Stage 5 Glomerular Filtration Rate Less Than 15 (HCC); Encounter Radiology, Marixa Whitehead Jr., Anemia Of Chronic Renal Disease; Building, in D.O. Hyperparathyroidism Renal Secondary (HCC ); [place], [address] [facility] Apnea Sleep Obstructive [place], [place] [address] [facility] [address] [place], [place] [phone] (Work) [phone] Social History Tobacco Use Types Packs/Day Years [...]
--- OUTSIDE RECORDS SUMMARY | 2021-11-27 11:31 | XMS_ITS | Encounter Summary ---
:1945 Author Organization [facility] Address [address] [place] [address] Care Team Providers Name Role Phone Unavailable Primary Care Provider Unavailable Encounter Details Date Type Department Care Team Description 09/02/2021 Clinical Communication Division of Nephrology Randal Weeks and Hypertension odilia Whitehead Jr., D.O. [place], [place] [address] [place] [address] [phone] Social History Tobacco Use Types Packs/Day Years [...] 3 weeks Preferred Communication Method: Call patient [phone] Patient pharmacy: [id number] [place] [address] [address] [facility]?[phone] Additional instructions: documented in this encounter Plan of Treatment Scheduled Procedures Name Priority Associated Diagnoses Date/Time PLACEMENT ARTERIOVENOUS GRAFT UPPER Chronic Kidn ey Disease Stage 5 EXTREMITY Glomerular Filtration Rate Less Than 15 (HCC) documented as of this encounter Visit Diagnoses Not on filedocumented in this encounter
--- OUTSIDE RECORDS SUMMARY | 2021-11-27 11:31 | XMS_ITS | Encounter Summary ---
:1945 Author Organization [facility] Address [address] [place] [address] Care Team Providers Name Role Phone Unavailable Primary Care Provider Unavailable Reason for Referral Medication Prior Authorization - Closed Specialty Diagnoses / Procedures Referred By Contact Refer red To Contact Jenna Neri APRN, C .N.P. [address] [place] [address] Referral ID Status Reason Start Date Expiration Date Visits Requ ested Visits Authorized [id number] Closed 1 1 Encounter Details Date Type Department Care Team Description 09/02/2021 Orders Only Division of Nephrology and Jenna Neri A PRN, Hypertension, [facility] C.N.P. [place], in [place], [address] [place] [address] [place] [address] [place] [address] [phone] Social History Tobacco Use Types Packs/Day Years [...]
--- OUTSIDE RECORDS SUMMARY | 2021-11-27 11:31 | XMS_ITS | Encounter Summary ---
:1945 Author Organization [facility] Address [address] [place] [address] Care Team Providers Name Role Phone Unavailable Primary Care Provider Unavailable Encounter Details Date Type Department Care Team Description 10/19/2021 Documentation Division of Nephrology and Stoney Shelton, Hypertension in [facility] [address] [facility] [address] [place] [address] [phone] Social History Tobacco Use Types Packs/Day Years [...] arterial pressure during dialysis. She dialyzes at [facility] on a Sunday, and Sunday schedule. DIABETES: DM2: Diet controlled ANTICOAGULATION: None. LABORATORY RESULTS: Current Labs in [facility]. IMPRESSION/REPORT/PLAN SPECIFIC PATIENT INSTRUCTIONS: [facility] at 09:30 am for a 10:30 am procedure. You must have a science editor to drive you home due to the [...] to three fourths of the day in [place] for this procedure. There is generally some waiting involved prior to the procedure. Post Access Instructions: Resume your usual dialysis schedule. Appointment scheduled via [place] at Interventional Radiology. Daughter was informed of the above instructions by phone today. She requested a call after 4 pm and a faxed appointment guide has been sent to [place] for secondary review. documented in this encounter Plan of Treatment Scheduled Procedures Name Priority Associated Diagnoses Date/Time PLACEMENT ARTERIOVENOUS GRAFT UPPER Chronic Kidn ey Disease Stage 5 EXTREMITY Glomerular Filtration Rate Less Than 15 (HCC) documented as of this encounter Visit Diagnoses Not on filedocumented in this encounter
--- OUTSIDE RECORDS SUMMARY | 2021-11-27 11:31 | XMS_ITS | Encounter Summary ---
:1945 Author Organization [facility] Address [address] [place] [address] Care Team Providers Name Role Phone Unavailable Primary Care Provider Unavailable Reason for Referral Outpatient (Routine) - Authorized Specialty Diagnoses / Procedures Referred By Contact Refer red To Contact Diagnoses Chronic Kidney Disease Stage 5 Glomerular Filtration Rate Less Than 15 (HCC) Anemia Of Chronic Renal Disease Hyperparathyroidism Renal Secondary (HCC) Apnea Sleep Obstructive Randal Weeks Jr., [facility] Procedures DX Chest AP or PA and Lateral 2 Views D.O. 200 [place] [address] Referral ID Status Reason Start Date Expiration Date Visits V isits Requested Authorized [id number] Authorized 09/17/2021 09/17/2022 1 1 Outpatient (Routine) - Authorized Specialty Diagnoses / Procedures Referred By Contact Refer red To Contact Diagnoses Chronic Kidney Disease Stage 5 Glomerular Filtration Rate Less Than 15 (HCC) Anemia Of Chronic Renal Disease Hyperparathyroidism Renal Secondary (HCC) Apnea Sleep Obstructive Randal Weeks Jr. [facility] Procedures ECG 12 Lead D.O. 200 [place] [address] Referral ID Status Reason Start Date Expiration Date Visits V isits Requested Authorized [id number] Authorized 09/17/2021 09/17/2022 1 1 Outpatient (Routine) - Closed Specialty Diagnoses / Procedures Referred By Contact Refer red To Contact Diagnoses Chronic Kidney Disease Stage 5 Glomerular Filtration Rate Less Than 15 (HCC) Anemia Of Chronic Renal Disease Hyperparathyroidism Renal Secondary (HCC) Apnea Sleep Obstructive Randal Weeks Jr., [place] [facility] Procedures US Upper Extremity Left Dialysis Mapping D.O. [address] [place], [place] [address] Referral ID Status Reason Start Date Expiration Date Visits Requ ested Visits Authorized [id number] Closed 09/17/2021 09/17/2022 1 1 Outpatient (Routine) - Closed Specialty Diagnoses / Procedures Referred By Contact Refer red To Contact Nephrology and Diagnoses Chronic Kidney Disease Stage 5 Glomerular Filtration Rate Less Than 15 (HCC) Anemia Of Chronic Renal Disease Hyperparathyroidism Renal Secondary (HCC) Apnea Sleep Obstructive Randal Weeks [facility] Hypertension / Dialysis JrGatito, D.O. 200 [place] [address] Referral ID Status Reason Start Date Expiration Date Visits Requ ested Visits Authorized [id number] Closed 09/17/2021 09/17/2022 1 1 Scheduling Instructions TTS [place] patient so [place] good for a ppts Encounter Details Date Type Department Care Team Description 09/17/2021 Orders Only Division of [place], Chronic Kidney Disease Stage 5 Glomerular Filtration Rate Less Than 15 (HCC) (Primary Dx); Nephrology and Randal Whitehead Jr., Anemia Of Ch ronic Renal Disease; Hypertension in D.O. Hyperparathyroidism Renal Secondary (HCC ); [place], [place] [address] [facility] Apnea Sleep Obstructive [address] [place] [address] [phone] Social History Tobacco Use Types Packs/Day Years [...]
--- OUTSIDE RECORDS SUMMARY | 2021-11-27 11:31 | XMS_ITS | Encounter Summary ---
:1945 Author Organization [facility] Address [address] [place] [address] Care Team Providers Name Role Phone Unavailable Primary Care Provider Unavailable Reason for Referral Outpatient (Routine) - Closed Specialty Diagnoses / Procedures Referred By Contact Refer red To Contact Diagnoses Chronic Failure Renal End Stage Renal Disease Dialysis Dependent (HCC) Randal Weeks Jr., [facility] Procedures US Upper Extremity Right Dialysis Mapping D.O. [address] [place] [address] Referral ID Status Reason Start Date Expiration Date Visits Requ ested Visits Authorized [id number] Closed 10/17/2021 10/17/2022 1 1 Encounter Details Date Type Department Care Team Description 10/17/2021 Orders Only Division of Nephrology Justo Sauer Chro myrna Failure Renal and Hypertension, R.N. End Stage Renal Disease [facility] in [phone] Dialysi s Dependent [place], [place] (Work) ([facility]) (Primary Dx) [address] [place] [address] Social History Tobacco Use Types [...]
--- OUTSIDE RECORDS SUMMARY | 2021-11-27 11:31 | XMS_ITS | Encounter Summary ---
:1945 Author Organization [facility] Address [address] [place] [address] Care Team Providers Name Role Phone Unavailable Primary Care Provider Unavailable Encounter Details Date Type Department Care Team Description 07/06/2021 Orders Only Division of Nephrology and Jenna Neri A PRN, Hypertension, Tao[employer] C.N.P. [place], in [place], [facility] [address] [place], [place] [address] [facility] [address] [place] [address] [phone] Social History Tobacco Use Types Packs/Day Years [...]
--- OUTSIDE RECORDS SUMMARY | 2021-11-27 11:31 | XMS_ITS | Encounter Summary ---
:1945 Author Organization [facility] Address [address] [place] [address] Care Team Providers Name Role Phone Unavailable Primary Care Provider Unavailable Encounter Details Date Type Department Care Team Description 10/17/2021 Orders Only Division of Nephrology Justo Sauer Chro myrna Failure Renal and Hypertension in R.N. End Stage Renal [place], [place] [phone] Disease Dialysis [address] (Work) Dependent (HCC) [place] [address] (Primary Dx) [phone] Social History Tobacco Use Types Packs/Day Years [...]
--- OUTSIDE RECORDS SUMMARY | 2021-11-27 11:31 | XMS_ITS | Encounter Summary ---
:1945 Author Organization [facility] Address [address] [place] [address] Care Team Providers Name Role Phone Unavailable Primary Care Provider Unavailable Encounter Details Date Type Department Care Team Description 08/17/2021 Orders Only Division of Nephrology and Jenna Neri A PRN, Hypertension, [facility] C.N.P. [place], in [place], [facility] [address] [place], [place] [address] [facility] [address] [place] [address] [phone] Social History Tobacco Use Types Packs/Day Years [...]
--- OUTSIDE RECORDS SUMMARY | 2021-11-27 11:32 | XMS_ITS | Encounter Summary ---
:1945 Author Organization [facility] Address [address] [place] [address] Care Team Providers Name Role Phone Unavailable Primary Care Provider Unavailable Reason for Visit Appointment Request (Routine) - Closed Specialty Diagnoses / Procedures Referred By Contact Refer red To Contact Nephrology and Hypertension Referral ID Status Reason Start Date Expiration Date Visits Requ ested Visits Authorized [id number] Closed 03/30/2021 03/30/2022 1 1 Encounter Details Date Type Department Care Team Description 05/02/2021 External Division of Micky, Chronic Kidney Disease Stage 5 Glomerular Filtration Rate Less Than 15 (HCC) (Primary Dx); Outreach Nephrology and Randal Whitehead Jr., Hypertension And Chronic Kidney Disease Stage 5 (HCC); Hypertension in D.O. Osteodystrophy Renal; [address] Anemia Of Chronic Renal Disease; [place], [place] Hyperparathyroidism Renal Se condary (HCC); [address] [place] [address] Diabetes Mellitus Type 2 ([facility]); [place], [place] [phone] Chronic Right Heart Failure ([facility]) [address] (Work) [phone] Social History Tobacco Use Types Packs/Day Years Used Date Smoking Tobacco: Never Assessed Sex Assigned at Date Recorded Not on file documented as of this encounter Progress Notes Randal Weeks Jr., D.O. - 05/02/2021 1:30 PM CST Please see scanned in note under document viewer tab for the [facility] [place] outreach visit from this date. TY HUNTER documented in this encounter Plan of Treatment [...]
--- OUTSIDE RECORDS SUMMARY | 2021-11-27 11:32 | XMS_ITS | Encounter Summary ---
:1945 Author Organization [facility] Address [address] [place] [address] Care Team Providers Name Role Phone Unavailable Primary Care Provider Unavailable Encounter Details Date Type Department Care Team Description 06/23/2021 Orders Only Division of Nephrology and Jenna Neri A PRN, Hypertension, Yazidi C.N.P. [place], in [place], [facility] [address] [place], [place] [address] [facility] [address] [place] [address] [phone] Social History Tobacco Use Types Packs/Day Years [...]
--- OUTSIDE RECORDS SUMMARY | 2021-11-27 11:32 | XMS_ITS | Encounter Summary ---
:1945 Author Organization [facility] Address [address] [place] [address] Care Team Providers Name Role Phone Unavailable Primary Care Provider Unavailable Encounter Details Date Type Department Care Team Description 07/22/2020 Clinical Communication Division of Nephrology Randal Weeks and Hypertension odilia Whitehead Jr., D.O. [address] [place] [phone] [phone] Social History Tobacco Use Types Packs/Day Years Used Date Smoking Tobacco: Never Assessed Sex Assigned at Date Recorded Not on file documented as of this encounter Miscellaneous Notes Telephone Encounter - Randal Weeks Jr., D.O. - 07/22/2020 5:43 PM CDT Email documentation == See the [facility] [facility] documentation. Thanks Angela can you call them as below--I???ll send in the RX Randal Weeks Jr., D.O. [facility] Division of Nephrology and Hypertension associate merchandise planner [facility] [place]: [phone] [email or web address] [address] [place] [address] [email or web address] From: Rachel Herr) - [facility] [email or web address]> Sent: July 10:11 AM To: Randal Weeks Jr., D.O. <[email or web address]> Subject: [EXTERNAL] Jael Berry (41) Hi [...] scheduled for follow up with you at [facility] 08/02. ~Angela documented in this encounter Plan of Treatment Scheduled Procedures Name Priority Associated Diagnoses Date/Time PLACEMENT ARTERIOVENOUS GRAFT UPPER Chronic Kidn ey Disease Stage 5 EXTREMITY Glomerular Filtration Rate Less Than 15 (HCC) documented as of this encounter Visit Diagnoses Not on filedocumented in this encounter
--- OUTSIDE RECORDS SUMMARY | 2021-11-27 11:32 | XMS_ITS | Encounter Summary ---
:1945 Author Organization [facility] Address [address] [place] [address] Care Team Providers Name Role Phone Unavailable Primary Care Provider Unavailable Reason for Referral Outpatient (Routine) - Closed Specialty Diagnoses / Procedures Referred By Contact Refer red To Contact Radiology Diagnoses Chronic Kidney Disease Stage 5 Glomerular Filtration Rate Less Than 15 (HCC) Hypertension And Chronic Kidney Disease Stage 5 (HCC) Hyperparathyroidism Renal Secondary (HCC) Diabetes Mellitus Type 2 (HCC) [facility]andal [facility] Jr.[facility] Chronic Right Heart Failure (HCC) Apnea Sleep Obstructive Proteinuria D.O. Procedures IR Dialysis / High Flow Catheter Placement [address] [place], [place] [address] Referral ID Status Reason Start Date Expiration Date Visits Requ ested Visits Authorized [id number] Closed 06/07/2021 06/07/2022 1 1 [employer] Reason for Visit Auth/Cert Specialty Diagnoses / [...] Expiration Date Visits Requ ested Visits Authorized [id number] 1 1 Encounter Details Date Type Department Care Team Description 06/14/2021 Hospital Department of Randal Weeks Jr., D.OGatito [address] [place] [address] Chronic Kidney Disease Stage 5 Glomerula r Filtration Rate Less Than 15 (HCC); Encounter Radiology in Maximo Tierney M.D. [address] [place] [address] Hypertension And Chronic Kidney Disease Stage 5 ([facility]); Trung Berrios Ricardo A, M.D. Hyperparathyroidism Renal Secondary ([facility] ); [place] Diabetes Mellitus Type 2 (HC C); [address] [facility] Chronic Right Heart Failure (HCC); [place], [place] Apnea Sleep Ob structive; [address] Proteinuria [phone] Social History Tobacco Use Types Packs/Day Years Used Date Smoking Tobacco: Never Assessed Sex Assigned at Date Recorded Not on file documented as of this encounter Last Filed Vital Signs Vital Sign Reading Time Taken Comments Blood Pressure 142/92 06/14/2021 1:35 PM [employer] Pulse 65 06/14/2021 1:35 PM [employer] Temperature 36.8 ??C (98.2 ??F) 06/14/2021 12:50 PM [employer] Respiratory Rate 14 06/14/2021 1:35 PM [employer] Oxygen Saturation 100% 06/14/2021 1:35 PM [employer] Inhaled Oxygen Concentration - - Weight - - Height - - Body Mass Index - - documented in this encounter Discharge Instructions AttachmentsThe following attachments cannot be sent through Care Everywhere. Central Venous Catheter: Reducing Your Risk of Infection (Romanian)Hemodialysis Catheters (Romanian)documented in this encounter Medications at Time of [...] Not applicable PATIENT INSTRUCTIONS No return appointment [employer] documented in this encounter Plan of Treatment Scheduled Procedures Name Priority Associated Diagnoses Date/Time PLACEMENT ARTERIOVENOUS GRAFT UPPER Chronic Kidn ey Disease Stage 5 EXTREMITY Glomerular Filtration Rate Less Than 15 (HCC) documented as of this encounter Procedures Procedure Name Priority Date/Time Associated Comments Diagnosis IR DIALYSIS / RAD - Routine 06/14/2021 12:34 Chronic Kidney Results for this HIGH FLOW (most inpatients PM [employer] Disease Stage 5 procedur e are in [...] High Flow Catheter Placement (06/14/2021 12:34 PM [employer]) Anatomical Region Laterality Modality Body, Vascular Interventional RST LOS, Vascular N/A X-Ray Angiography Interventional ARZ LOS, Vascular Interventional FLA LOS Specimen (Source) Anatomical Collection Method Collection Time Re ceived Time Location / / Volume Laterality 06/14/2021 1:22 PM [employer] Impressions 06/14/2021 1:27 PM [employer] Placement of a tunneled right IJ dialysis catheter. Tip at the right atrium. Ready for use. EP Narrative 06/14/2021 1:27 PM [employer] EXAM: IR DIALYSIS / HIGH FLOW CATHETER [...] injection 25 mcg Given 06/14/2021 12:22 PM [employer] 25 mcg (SUBLIMAZE) 25 mcg, intravenous, Every [...] than 8 breaths/minute Given 06/14/2021 12:18 PM [employer] 25 mcg Given 06/14/2021 12:14 PM [employer] 25 mcg flumazeniL injection 0.2 mg (ROMAZICON) 0.2 mg, intravenous, Once as needed, rev ersal, Starting on Sun06/14/21 at 1211, For 1 dose, Intraprocedure (RAD), Administer once if patient has a RASS score of -4, -5 and has a respiratory rate less than 8 breaths/minute. lidocaine-sodium bicarbonate (buffered) Given 06/14/2021 12:30 P M [employer] 10 mL 0.9%-8.4% injection infiltration, Code/trauma/sedation medication, Starting on Sun06/14/21 at 1230 midazolam (PF) injection 0.5 mg (VERSED) Given 06/14/2021 12:22 PM [employer] 0.5 mg 0.5 mg, intravenous, Every 2 min PRN, sedation, Starting on Sun06/14/21 at 1211, Intraprocedure (RAD), If RASS greater than -3, give additional dose(s) of 0.5 mg IV every 2 minutes for a maximum of 5 mg. Do not give if respiratory rate is less than 8 breaths/minute. Given 06/14/2021 12:18 PM [employer] 0.5 mg Given 06/14/2021 12:14 PM [employer] 0.5 mg NaCl 0.9% infusion 20 mL/hr, [...] 4 % injection Given 06/14/2021 12:27 PM [employer] 6 mL Code/trauma/sedation medication, Starting on Sun06/14/21 at 1227 documented in this encounter Active and Recently Administered Medications Times are shown in [employer]. PRN Medication Order 06/12/2021 06/13/2021 06/14/2021 [email or web address] [...]
--- OUTSIDE RECORDS SUMMARY | 2021-11-27 11:32 | XMS_ITS | Encounter Summary ---
:1945 Author Organization [facility] Address [address] [place] [address] Care Team Providers Name Role Phone Unavailable Primary Care Provider Unavailable Encounter Details Date Type Department Care Team Description 11/10/2020 Orders Only Division of Nephrology and Shlomo Weeks Hypertension in [place], ., D.O. [place] [address] [facility] [address] [place] [address] [phone] (Wo rk) Social History Tobacco Use Types [...]
--- OUTSIDE RECORDS SUMMARY | 2021-11-27 11:32 | XMS_ITS | Encounter Summary ---
:1945 Author Organization [facility] Address [address] [place] [address] Care Team Providers Name Role Phone Unavailable Primary Care Provider Unavailable Encounter Details Date Type Department Care Team Description 2021 Orders Only Division of Nephrology Randal Weeks Kidney Disease and Hypertension in C Jr. DTrey Stage 5 Glomerular [place], [place] [address] Filtration Rate Less [address] [place], [place] Than 15 (HCC) ([place] [address] Dx) [id number] [phone] Social History Tobacco Use Types Packs/Day Years [...] Tushar Ab, Semi-Quant, S (06/14/2021 11:49 AM PROVIDER RELATIONS COORDINATOR) athologist Signature SARS-CoV-2 Positive 06/14/2021 [facility] Tushar Ab, 5:17 PM PROVIDER RELATIONS COORDINATOR Interp, S Comment: Antibodies to the SARS-CoV-2 [...] Quant, S >250 U/mL 06/14/2021 5:17 PM PROVIDER RELATIONS COORDINATOR [facility] Comment: ----ADDITIONAL INFORMATION---- Testing was performed using the [employer] Anti-SARS- CoV-2 S Reagent assay from [employer], which has received Emergency Use Authorization (EU A) by the U.S. Food and Drug Administration. Fact sheets for this Emergency Use Autho rization (EUA) assay can be found at the following link s: For Healthcare Providers: https://www.fda.gov/media/862614/downloa d For Patients: https://www.fda.gov/media/517643/downloa d Specimen Anatomical Collection Method Collection Time Receive d Time (Source) Location / / Volume Laterality Blood (Blood, 06/14/2021 11:49 06/14/2021 4:40 Venous) AM PROVIDER RELATIONS COORDINATOR PM PROVIDER RELATIONS COORDINATOR Randal Weeks Jr., D.O. LAB MICROBIOLOGY - BLOOD O CORA Performing Organization Address City/[facility]/ZIP Code Phon e Number [facility] [address] DEVON Berrios [place] [address] [facility] [place] [address] Laboratory Medicine and Pathology [address] [place] [address] Dr. OSORIO Hepatitis B Surface Antigen (06/14/2021 11:49 AM PROVIDER RELATIONS COORDINATOR) athologist Signature HBs Antigen, S Negative Negative 06/14/2021 [facility] 8:45 PM PROVIDER RELATIONS COORDINATOR Specimen Anatomical Collection Method Collection Time Receive d Time (Source) Location / / Volume Laterality Blood (Blood, 06/14/2021 11:49 06/14/2021 3:27 Venous) AM PROVIDER RELATIONS COORDINATOR PM PROVIDER RELATIONS COORDINATOR Randal Weeks Jr., D.O. LAB MICROBIOLOGY - BLOOD O CORA Performing Organization Address City/[facility]/ZIP Code Phon e Number [facility] [address] DEVON Berrios [place] [address] SUPPORT CENTER [facility] [place] [address] Laboratory Medicine and Pathology [address] [place] [address] Dr. OSORIO documented in this encounter Visit Diagnoses Diagnosis Chronic Kidney Disease Stage 5 Glomerula r Filtration Rate Less Than 15 (HCC) - Primary documented in this encounter
--- OUTSIDE RECORDS SUMMARY | 2021-11-27 11:32 | XMS_ITS | Encounter Summary ---
:1945 Author Organization [facility] Address [address] [place] [address] Care Team Providers Name Role Phone Unavailable Primary Care Provider Unavailable Reason for Visit Appointment Request (Routine) - Closed Specialty Diagnoses / Procedures Referred By Contact Refer red To Contact Nephrology and Hypertension Referral ID Status Reason Start Date Expiration Date Visits Requ ested Visits Authorized [id number] Closed 03/18/2021 03/18/2022 1 1 Encounter Details Date Type Department Care Team Description 03/28/2021 External Division of Micky, Farhana An d Chronic Kidney Disease Stage 5 (HCC) (Primary Dx); Outreach Nephrology and Randal Whitehead Jr., Chronic Kidn ey Disease Stage 5 Glomerular Filtration Rate Less Than 15 (HCC); Hypertension in D.O. Anemia Of Chronic Renal Disease; [address] Hyperparathyroidism Renal Secondary (HCC ); [place], [place] Diabetes Mellitus Type 2 (HC C); [address] [place] [address] Infection Urinary Tract [place], [place] [phone] [address] (Work) [phone] Social History Tobacco Use Types Packs/Day Years Used Date Smoking Tobacco: Never Assessed Sex Assigned at Date Recorded Not on file documented as of this encounter Progress Notes Randal Weeks Jr., D.O. - 03/28/2021 1:30 PM CST Please see scanned in note under document viewer tab for the [facility] [place] outreach visit from this date. R SPECIALIST documented in this encounter Plan of [...]
--- OUTSIDE RECORDS SUMMARY | 2021-11-27 11:32 | XMS_ITS | Encounter Summary ---
:1945 Author Organization [facility] Address [address] [place] [address] Care Team Providers Name Role Phone Unavailable Primary Care Provider Unavailable Encounter Details Date Type Department Care Team Description 06/10/2020 Orders Only Division of Nephrology and Shlomo Weeks Hypertension in [place], ., D.O. [place] [address] [facility] [address] [place] [address] [phone] (Wo rk) Social History Tobacco Use Types [...]
--- OUTSIDE RECORDS SUMMARY | 2021-11-27 11:32 | XMS_ITS | Encounter Summary ---
:1945 Author Organization [facility] Address [address] [place] [address] Care Team Providers Name Role Phone Unavailable Primary Care Provider Unavailable Reason for Visit Reason Comments UA positive for bacteria Encounter Details Date Type Department Care Team Description 11/08/2020 Clinical Division of Micky, UA positive for Communication Nephrology and Randal Whitehead Jr., bacteria Hypertension in D.O. [place], [place] [address] [facility] [address] [place] [phone] Social History Tobacco Use Types Packs/Day Years Used Date Smoking Tobacco: Never Assessed Sex Assigned at Date Recorded Not on file documented as of this encounter Miscellaneous Notes Telephone Encounter - Yanet Conteh - 11/08/2020 9:06 AM CDT Irma (patient's daughter) from the [place] lab called. She saw the test results that came through on patient's UA, and it is 2 + for bacteria. She is wondering if you would like to do a urine culture. You are scheduled to see patient on Sunday, and Irma said you could contact her at the lab at [phone] to order that. She also thought it [...]
--- OUTSIDE RECORDS SUMMARY | 2021-11-27 11:32 | XMS_ITS | Encounter Summary ---
:1945 Author Organization [facility] Address [address] [place] [address] Care Team Providers Name Role Phone Unavailable Primary Care Provider Unavailable Encounter Details Date Type Department Care Team Description 07/22/2020 Orders Only Division of Nephrology and Shlomo Weeks Hypertension in [place], ., D.O. [place] [address] [facility] [address] [place] [address] [phone] (Wo rk) Social History Tobacco Use Types [...]
--- OUTSIDE RECORDS SUMMARY | 2021-11-27 11:32 | XMS_ITS | Encounter Summary ---
:1945 Author Organization [facility] Address [address] [place] [address] Care Team Providers Name Role Phone Unavailable Primary Care Provider Unavailable Reason for Referral Outpatient (Routine) - Closed Specialty Diagnoses / Procedures Referred By Contact Candi arnold To Contact Radiology Diagnoses Chronic Kidney Disease Stage 5 Glomerular Filtration Rate Less Than 15 (HCC) Hypertension And Chronic Kidney Disease Stage 5 (HCC) Hyperparathyroidism Renal Secondary (HCC) Diabetes Mellitus Type 2 (HCC) Randal Weeks Jr., [facility] Chronic Right Heart Failure (HCC) Apnea Sleep Obstructive Proteinuria D.O. Procedures IR Dialysis / High Flow Catheter Placement [address] [place] [address] Referral ID Status Reason Start Date Expiration Date Visits Requ ested Visits Authorized [id number] Closed 06/07/2021 06/07/2022 1 1 JOCKEY Reason for Visit Appointment Request (Routine) - Closed Specialty Diagnoses / Procedures Referred By Contact Candi arnold To Contact Nephrology and Hypertension Referral ID Status Reason Start Date Expiration Date Visits Requ ested Visits Authorized [id number] Closed 05/20/2021 05/20/2022 1 Encounter Details Date Type Department Care Team Description 06/07/2021 External Division of Micky Chronic Kidney Disease Stage 5 Glomerular Filtration Rate Less Than 15 (HCC) (Primary Dx); Outreach Nephrology and Randal Whitehead Jr., Hypertension And Chronic Kidney Disease Stage 5 (HCC); Hypertension in D.O. Hyperparathyroidism Renal Secondary (HCC ); [address] Diabetes Mellitus Type 2 (HCC); [place], [place] Chronic Right Heart Failure (HCC); [address] [place] [address] Apnea Sleep Obstructive; [place], [place] [phone] Proteinuria [address] (Work) [phone] Social History Tobacco Use Types Packs/Day Years Used Date Smoking Tobacco: Never Assessed Sex Assigned at Date Recorded Not on file documented as of this encounter Progress Notes Randal Weeks Jr., D.O. - 06/07/2021 10:00 AM CST Please see scanned in note under document viewer tab for the [facility] [place] outreach visit from this date. She is [...] been in contact with our colleagues from [facility] in [place], and our social work team, we will [...] a prolonged process up to this point. JOCKEY documented in this encounter Plan of Treatment Scheduled Procedures Name Priority Associated Diagnoses Date/Time PLACEMENT ARTERIOVENOUS GRAFT UPPER Chronic Kidn ey Disease Stage 5 EXTREMITY Glomerular Filtration Rate Less Than 15 (HCC) documented as of this encounter Results IR Dialysis / High Flow Catheter Placement (06/14/2021 12:34 PM RAMP JOCKEY) Anatomical Region Laterality Modality Body, Vascular Interventional RST LOS, Vascular N/A X-Ray Angiography Interventional ARZ LOS, Vascular Interventional FLA LOS Specimen (Source) Anatomical Collection Method Collection Time Re ceived Time Location / / Volume Laterality 06/14/2021 1:22 PM RAMP JOCKEY Impressions 06/14/2021 1:27 PM RAMP JOCKEY Placement of a tunneled right IJ dialysis catheter. Tip at the right atrium. Ready for use. EP Narrative 06/14/2021 1:27 PM RAMP JOCKEY EXAM: IR DIALYSIS / HIGH FLOW CATHETER [...]
--- OUTSIDE RECORDS SUMMARY | 2021-11-27 11:32 | XMS_ITS | Encounter Summary ---
:1945 Author Organization [facility] Address [address] [place] [address] Care Team Providers Name Role Phone Unavailable Primary Care Provider Unavailable Encounter Details Date Type Department Care Team Description 06/15/2021 Orders Only Division of Nephrology and Jenna Neri A PRN, Hypertension, Quaker C.N.P. [place], in [place], [facility] [address] [place], [place] [address] [facility] [address] [place] [address] [phone] Social History Tobacco Use Types Packs/Day Years [...]
--- OUTSIDE RECORDS SUMMARY | 2021-11-27 11:32 | XMS_ITS | Encounter Summary ---
:1945 Author Organization [facility] Address [address] [place] [address] Care Team Providers Name Role Phone Unavailable Primary Care Provider Unavailable Reason for Visit Appointment Request (Routine) - Closed Specialty Diagnoses / Procedures Referred By Contact Refer red To Contact Nephrology and Hypertension Referral ID Status Reason Start Date Expiration Date Visits Requ ested Visits Authorized [id number] Closed 06/17/2020 06/17/2021 1 1 Encounter Details Date Type Department Care Team Description 08/02/2020 External Outreach Division of Wanda Weeksey Disease Stage 5 Glomerular Filtration Rate Less Than 15 (HCC) (Primary Dx); Nephrology and Randal Whitehead Jr., Hypertension And Chronic Kidney Disease Stage 5 (HCC); Hypertension in [place].O. Anemia Of Chronic Renal Disease; [place], [place] [address] [facility] Osteodystrophy Renal; [address] [place], [place] Diabetes Mellitus Type 2 (HC C); [place] [address] Apnea Sleep Obstructive; [phone] Proteinuria Social History Tobacco Use Types Packs/Day Years Used Date Smoking Tobacco: Never Assessed Sex Assigned at Date Recorded Not on file documented as of this encounter Progress Notes Randal Weeks Jr., D.O. - 08/02/2020 3:00 PM CDT Please see scanned in note under document viewer tab for the [facility] [place] outreach visit from this date. documented in [...]
--- OUTSIDE RECORDS SUMMARY | 2021-11-27 11:32 | XMS_ITS | Encounter Summary ---
:1945 Author Organization [facility] Address [address] [place] [address] Care Team Providers Name Role Phone Unavailable Primary Care Provider Unavailable Encounter Details Date Type Department Care Team Description 06/07/2021 Documentation Division of Nephrology and Ludmila Reyes R.N. Hypertension in [place], [address] [place], [place] [address] [facility] [address] [place] [address] [phone] Social History Tobacco Use Types Packs/Day Years [...] her daughter [facility] on Sunday06/14/21 at 9:30 am. You must have a surgical territory manager to drive you home due to the [...] to three fourths of the day in [place] for this procedure. There is generally some waiting involved prior to the procedure. Post Access Instructions: Dr. Weeks has been informed of the catheter placement date, he and his team are in communication with the patient regarding the date she is to start dialysis. Appointment scheduled via Interventional Radiology. ITY REVIEW SPECIALIST documented in this encounter Plan of Treatment Scheduled Procedures Name Priority Associated Diagnoses Date/Time PLACEMENT ARTERIOVENOUS GRAFT UPPER Chronic Kidn ey Disease Stage 5 EXTREMITY Glomerular Filtration Rate Less Than 15 (HCC) documented as of this encounter Visit Diagnoses Not on filedocumented in this encounter
--- OUTSIDE RECORDS SUMMARY | 2021-11-27 11:32 | XMS_ITS | Encounter Summary ---
:1945 Author Organization [facility] Address [address] [place] [address] Care Team Providers Name Role Phone Unavailable Primary Care Provider Unavailable Reason for Visit Reason Comments Med Refill Encounter Details Date Type Department Care Team Description 04/19/2021 Refill Division of Nephrology and Micky, Shlomo Whitehead Jr., Med Refill Hypertension in [facility] [address] [facility] [address] [place] [address] [place] [address] [phone] Social History Tobacco Use Types Packs/Day Years [...]
--- OUTSIDE RECORDS SUMMARY | 2021-11-27 11:32 | XMS_ITS | Encounter Summary ---
:1945 Author Organization [facility] Address [address] [place] [address] Care Team Providers Name Role Phone Unavailable Primary Care Provider Unavailable Reason for Visit Appointment Request (Routine) - Closed Specialty Diagnoses / Procedures Referred By Contact Refer red To Contact Nephrology and Hypertension Referral ID Status Reason Start Date Expiration Date Visits Requ ested Visits Authorized [id number] Closed 02/11/2021 02/11/2022 1 1 Encounter Details Date Type Department Care Team Description 02/28/2021 External Division of Micky, Chronic Kidney Disease Stage 5 Glomerular Filtration Rate Less Than 15 (HCC) (Primary Dx); Outreach Nephrology and Randal Whitehead Jr., Hypertension And Chronic Kidney Disease Stage 5 (HCC); Hypertension in [place] Anemia Of Chronic Renal Disease; [address] Osteodystrophy Renal; [place], [place] Diabetes Mellitus Type 2 (HC C); [address] [facility] [address] Hyperparathyroidism Renal Secondary (HCC ); [place], [place] [phone] Chronic Right Heart Failure (HCC); [address] (Work) Apnea Sleep Obstructive [phone] Social History Tobacco Use Types Packs/Day Years Used Date Smoking Tobacco: Never Assessed Sex Assigned at Date Recorded Not on file documented as of this encounter Progress Notes Randal Weeks Jr., D.O. - 02/28/2021 4:00 PM CST Please see scanned in note under document viewer tab for the [facility] [place] outreach visit from this date. She is [...] work team soon to plan fordialysis initiation. TRONIC DATA INTERCHANGE SPECIALIST documented in this encounter Plan of [...]
--- OUTSIDE RECORDS SUMMARY | 2021-11-27 11:32 | XMS_ITS | Encounter Summary ---
:1945 Author Organization [facility] Address [address] [place] [address] Care Team Providers Name Role Phone Unavailable Primary Care Provider Unavailable Reason for Visit Appointment Request (Routine) - Closed Specialty Diagnoses / Procedures Referred By Contact Refer red To Contact Nephrology and Hypertension Referral ID Status Reason Start Date Expiration Date Visits Requ ested Visits Authorized [id number] Closed 08/18/2020 08/18/2021 1 1 Encounter Details Date Type Department Care Team Description 09/08/2020 External Outreach Division of Wanda Weeks Ki dney Disease Stage 5 Glomerular Filtration Rate Less Than 15 (HCC) (Primary Dx); Nephrology and Randal Whitehead Jr., Hypertension And Chronic Kidney Disease Stage 5 (HCC); Hypertension in [place] Anemia Of Chronic Renal Disease; [place], [place] [address] [facility] Osteodystrophy Renal; [address] [place], [place] Diabetes Mellitus Type 2 (HC C); [place] [address] Chronic Right Heart Failure (HCC); [id number] Proteinuria Social History Tobacco Use Types Packs/Day Years Used Date Smoking Tobacco: Never Assessed Sex Assigned at Date Recorded Not on file documented as of this encounter Progress Notes Randal Weeks Jr., D.O. - 09/08/2020 4:30 PM CDT Please see scanned in note under document viewer tab for the [facility] [place] outreach visit from this date. documented in [...]
--- OUTSIDE RECORDS SUMMARY | 2021-11-27 11:32 | XMS_ITS | Encounter Summary ---
:1945 Author Organization [facility] Address [address] [place] [address] Care Team Providers Name Role Phone Unavailable Primary Care Provider Unavailable Reason for Visit Appointment Request (Routine) - Closed Specialty Diagnoses / Procedures Referred By Contact Refer red To Contact Nephrology and Hypertension Referral ID Status Reason Start Date Expiration Date Visits Requ ested Visits Authorized [id number] Closed 03/31/2020 03/31/2021 1 1 Encounter Details Date Type Department Care Team Description 04/28/2020 External Outreach Division of Reina Weeks on And Chronic Kidney Disease Stage 5 (HCC) (Primary Dx); Nephrology and Randal Whitehead Jr., Chronic Kidn ey Disease Stage 5 Glomerular Filtration Rate Less Than 15 (HCC); Hypertension in [place] Anemia Of Chronic Renal Disease; [place], [place] [address] [facility] Osteodystrophy Renal; [address] [place], [place] Diabetes Mellitus Type 2 (HC C); [place] [address] Chronic Right Heart Failure (HCC) [address] [phone] Social History Tobacco Use Types Packs/Day Years Used Date Smoking Tobacco: Never Assessed Sex Assigned at Date Recorded Not on file documented as of this encounter Progress Notes Randal Weeks Jr., D.O. - 04/28/2020 3:00 PM CST Please see scanned in note under document viewer tab for the [facility] [place] outreach visit from this date. FER documented in this encounter Plan of Treatment [...]
--- OUTSIDE RECORDS SUMMARY | 2021-11-27 11:32 | XMS_ITS | Encounter Summary ---
:1945 Author Organization [facility] Address [address] [place] [address] Care Team Providers Name Role Phone Unavailable Primary Care Provider Unavailable Encounter Details Date Type Department Care Team Description 06/17/2021 Orders Only Division of Nephrology and Jenna Neri A PRN, Hypertension, [facility] [place], in [place], [facility] [address] [place], [place] [address] [facility] [address] [place] [address] [phone] Social History Tobacco Use Types Packs/Day Years [...]
--- OUTSIDE RECORDS SUMMARY | 2021-11-27 11:32 | XMS_ITS | Encounter Summary ---
:1945 Author Organization [facility] Address [address] [place] [address] Care Team Providers Name Role Phone Unavailable Primary Care Provider Unavailable Reason for Visit Appointment Request (Routine) - Closed Specialty Diagnoses / Procedures Referred By Contact Refer red To Contact Nephrology and Hypertension Referral ID Status Reason Start Date Expiration Date Visits Requ ested Visits Authorized [id number] Closed 11/18/2020 11/18/2021 1 1 Encounter Details Date Type Department Care Team Description 12/08/2020 External Outreach Division of Wanda Weeks Ki dney Disease Stage 5 Glomerular Filtration Rate Less Than 15 (HCC) (Primary Dx); Nephrology and Randal Whitehead Jr., Hypertension And Chronic Kidney Disease Stage 5 (HCC); Hypertension in [place] Anemia Of Chronic Renal Disease; [place], [place] [address] [facility] Osteodystrophy Renal; [address] [place], [place] Diabetes Mellitus Type 2 (HC C); [place] [address] Apnea Sleep Obstructive [address] [phone] Social History Tobacco Use Types Packs/Day Years Used Date Smoking Tobacco: Never Assessed Sex Assigned at Date Recorded Not on file documented as of this encounter Progress Notes Randal Weeks Jr., D.O. - 12/08/2020 11:00 AM CDT Please see scanned in note under document viewer tab for the [facility] [place] outreach visit from this date. documented in [...]
--- OUTSIDE RECORDS SUMMARY | 2021-11-27 11:32 | XMS_ITS | Encounter Summary ---
:1945 Author Organization [facility] Address [address] [place] [address] Care Team Providers Name Role Phone Unavailable Primary Care Provider Unavailable Reason for Visit Appointment Request (Routine) - Closed Specialty Diagnoses / Procedures Referred By Contact Refer red To Contact Nephrology and Hypertension Referral ID Status Reason Start Date Expiration Date Visits Requ ested Visits Authorized [id number] Closed 11/04/2020 11/04/2021 1 1 Encounter Details Date Type Department Care Team Description 11/10/2020 External Outreach Division of Wanda Weeksey Disease Stage 5 Glomerular Filtration Rate Less Than 15 (HCC) (Primary Dx); Nephrology and Randal Whitehead Jr., Hypertension And Chronic Kidney Disease Stage 5 (HCC); Hypertension in [place] Anemia Of Chronic Renal Disease; [place], [place] [address] [facility] Osteodystrophy Renal; [address] [place], [place] Diabetes Mellitus Type 2 (HC C) [place] [address] [phone] Social History Tobacco Use Types Packs/Day Years Used Date Smoking Tobacco: Never Assessed Sex Assigned at Date Recorded Not on file documented as of this encounter Progress Notes Randal Weeks Jr., D.O. - 11/10/2020 11:00 AM CDT Please see scanned in note under document viewer tab for the [facility] [place] outreach visit from this date. documented in [...]
--- OUTSIDE RECORDS SUMMARY | 2021-11-27 11:32 | XMS_ITS | Encounter Summary ---
:1945 Author Organization [facility] Address [address] [place] [address] Care Team Providers Name Role Phone Unavailable Primary Care Provider Unavailable Encounter Details Date Type Department Care Team Description 06/15/2021 Documentation Division of Nephrology and Delbert Flor, Hypertension, Religion Taryn Cason, M.S.W. [place], in [place], [facility] [address] [place], [place] [address] [place] [address] [place] [address] [phone] Social History Tobacco Use Types Packs/Day Years Used Date Smoking Tobacco: Never Assessed Sex Assigned at Date Recorded Not on file documented as of this encounter Progress Notes Carmencita Flor L.I.C.S.W., M.S.W. - 06/15/2021 8:51 AM CST SUBJECTIVE The patient is scheduled to start dialysis today, SundayJune 15 at 2 pm at [facility] Dialysis unit. They have received all the necessary information for the patient to be accepted. OBJECTIVE The patient will initiate dialysis at [facility]. ASSESSMENT / PLAN ASSESSMENT Her daughter was provided with all of the necessary information regarding her dialysis schedule. PLAN Social work will be available to provide support as needed. Ria Robbins, M.S.W. 06/15/21 OMS INVESTIGATOR documented in this encounter Plan of Treatment Scheduled Procedures Name Priority Associated Diagnoses Date/Time PLACEMENT ARTERIOVENOUS GRAFT UPPER Chronic Kidn ey Disease Stage 5 EXTREMITY Glomerular Filtration Rate Less Than 15 (HCC) documented as of this encounter Visit Diagnoses Not on filedocumented in this encounter
--- OUTSIDE RECORDS SUMMARY | 2021-11-27 11:32 | XMS_ITS | Encounter Summary ---
:1945 Author Organization [facility] Address [address] [place] [address] Care Team Providers Name Role Phone Unavailable Primary Care Provider Unavailable Reason for Visit Appointment Request (Routine) - Closed Specialty Diagnoses / Procedures Referred By Contact Refer red To Contact Nephrology and Hypertension Referral ID Status Reason Start Date Expiration Date Visits Requ ested Visits Authorized [id number] Closed 02/26/2020 02/25/2021 1 1 Encounter Details Date Type Department Care Team Description 03/22/2020 External Outreach Division of Wanda Weeks Ki dney Disease Stage 5 Glomerular Filtration Rate Less Than 15 (HCC) (Primary Dx); Nephrology and Randal Whitehead Jr., Hypertension And Chronic Kidney Disease Stage 5 (HCC); Hypertension in [place] Anemia Of Chronic Renal Disease; [place], [place] [address] [facility] Osteodystrophy Renal; [address] [place], [place] Diabetes Mellitus Type 2 (HC C); [place] [address] Proteinuria; [address] Chronic Right Heart Failure (HCC) Social History Tobacco Use Types Packs/Day Years Used Date Smoking Tobacco: Never Assessed Sex Assigned at Date Recorded Not on file documented as of this encounter Progress Notes Randal Weeks Jr., D.O. - 03/22/2020 3:30 PM CST Please see scanned in note under document viewer tab for the [facility] [place] outreach visit from this date. TY CLOTHING AND EQUIPMENT DEVELOPER documented in this encounter Plan of Treatment [...]
--- OUTSIDE RECORDS SUMMARY | 2021-11-27 11:32 | XMS_ITS | Encounter Summary ---
:1945 Author Organization [facility] Address [address] [place] [address] Care Team Providers Name Role Phone Unavailable Primary Care Provider Unavailable Reason for Visit Appointment Request (Routine) - Closed Specialty Diagnoses / Procedures Referred By Contact Refer red To Contact Nephrology and Hypertension Referral ID Status Reason Start Date Expiration Date Visits Requ ested Visits Authorized [id number] Closed 06/03/2020 06/03/2021 1 1 Encounter Details Date Type Department Care Team Description 06/09/2020 External Outreach Division of Wanda Weeksey Disease Stage 5 Glomerular Filtration Rate Less Than 15 (HCC) (Primary Dx); Nephrology and Randal Whitehead Jr., Hypertension And Chronic Kidney Disease Stage 5 (HCC); Hypertension in [place] Anemia Of Chronic Renal Disease; [place], [place] [address] [facility] Osteodystrophy Renal; [address] [place], [place] Diabetes Mellitus Type 2 (HC C); [place] [address] Infection Urinary Tract [address] [phone] Social History Tobacco Use Types Packs/Day Years Used Date Smoking Tobacco: Never Assessed Sex Assigned at Date Recorded Not on file documented as of this encounter Progress Notes Randal Weeks Jr., D.O. - 06/09/2020 3:00 PM CST Please see scanned in note under document viewer tab for the [facility] [place] outreach visit from this date. RAL ACCOUNTANT documented in this encounter Plan of Treatment [...]
--- OUTSIDE RECORDS SUMMARY | 2021-11-27 11:32 | XMS_ITS | Encounter Summary ---
:1945 Author Organization [facility] Address [address] [place] [address] Care Team Providers Name Role Phone Unavailable Primary Care Provider Unavailable Reason for Visit Appointment Request (Routine) - Closed Specialty Diagnoses / Procedures Referred By Contact Refer red To Contact Nephrology and Hypertension Referral ID Status Reason Start Date Expiration Date Visits Requ ested Visits Authorized [id number] Closed 01/07/2021 01/07/2022 1 1 Encounter Details Date Type Department Care Team Description 01/17/2021 External Division of Micky, Farhana An d Chronic Kidney Disease Stage 5 (HCC) (Primary Dx); Outreach Nephrology and Randal Whitehead Jr., Chronic Kidn ey Disease Stage 5 Glomerular Filtration Rate Less Than 15 (HCC); Hypertension in [place] Anemia Of Chronic Renal Disease; [address] Diabetes Mellitus Type 2 ([facility]); [place], [place] Hyperparathyroidism Renal Se condary ([facility]); [address] [place] [phone] Apnea Sleep Obstructive; [place], [place] [phone] Chronic Right Heart Failure ([facility]) [address] (Work) [phone] Social History Tobacco Use Types Packs/Day Years Used Date Smoking Tobacco: Never Assessed Sex Assigned at Date Recorded Not on file documented as of this encounter Progress Notes Randal Weeks Jr., D.O. - 01/17/2021 2:00 PM CDT Please see scanned in note under document viewer tab for the [facility] [place] outreach visit from this date. documented in [...]
--- OUTSIDE RECORDS SUMMARY | 2021-11-27 11:33 | XMS_ITS | Encounter Summary ---
:1945 Author Organization [place] Address [facility] [address] Care Team Providers Name Role Phone Eusebia [...] on filedocumented in this encounter Care Teams Back Roller Relationship Specialty Start Date End Date Eusebia Whitaker PCP - General Family Practice 09/25/19 [facility] [address] [place] [address] documented as of this encounter
--- OUTSIDE RECORDS SUMMARY | 2021-11-27 11:33 | XMS_ITS | Encounter Summary ---
:1945 Author Organization [facility] Address [address] [place] [address] Care Team Providers Name Role Phone Unavailable Primary Care Provider Unavailable Reason for Visit Appointment Request (Routine) - Closed Specialty Diagnoses / Procedures Referred By Contact Refer red To Contact Nephrology and Hypertension Referral ID Status Reason Start Date Expiration Date Visits Requ ested Visits Authorized [id number] Closed 02/11/2020 02/10/2021 1 1 Encounter Details Date Type Department Care Team Description 02/18/2020 External Outreach Division of Wanda Weeks Ki dney Disease Stage 5 Glomerular Filtration Rate Less Than 15 (HCC) (Primary Dx); Nephrology and Randal Whitehead Jr., Hypertension And Chronic Kidney Disease Stage 5 (HCC); Hypertension in [place] Anemia Of Chronic Renal Disease; [place], [place] [address] [facility] Osteodystrophy Renal; [address] [place], [place] Diabetes Mellitus Type 2 (HC C); [place] [address] Chronic Right Heart Failure (HCC); [address] Proteinuria Social History Tobacco Use Types Packs/Day Years Used Date Smoking Tobacco: Never Assessed Sex Assigned at Date Recorded Not on file documented as of this encounter Progress Notes Randal Weeks Jr., D.O. - 02/18/2020 12:00 PM CST Please see scanned in note under document viewer tab for the [facility] [place] outreach visit from this date. L CLEANER TUBE documented in this encounter Plan of Treatment [...]
--- OUTSIDE RECORDS SUMMARY | 2021-11-27 11:33 | XMS_ITS | Encounter Summary ---
:1945 Author Organization [place] Address [facility] [place] [address] Care Team Providers Name Role Phone Eusebia Whitaker Primary Care Provider Reason for Visit Reason Onset Date Comments Covid 19 Testing 09/29/2019 Encounter Details Date Type Department Care Team Description 09/29/2019 Orders Only [facility] En[facility] for Urgent Care [facility] CONSULTANTS screening for other [address] viral diseases [place], [place] [address] [facility] [address] [facility] [phone] [place], [place] [address] (Wo rk) Social History Tobacco Use Types [...] (Coronavirus) by PCR (09/29/2019 4:05 PM CDT) [facility] Method Time Signature COVID-19 Nasopharyngeal 09/29/2019 [place] Virus PCR to 4:[address] [facility] Source [facility] COVID-19 Not Detected 09/30/2019 [facility] Virus PCR to 1:10 PM CDT [facility]ENTER [facility] Comment: Collection of multiple [...] N1,N2 gene targets of CoV2 and human FRONT OFFICE SPEC as an internal control. A negative result [...] (Centers for Disease Control) Testing performed by [facility] [place], Room 1-210, [address] [place] [address]. T his test was developed and its performance characteristics determined b y the [facility] [place]. It has not been cleared or appr [...] [facility] Code Phon e Number [facility] [address] [place] [phone] [facility] Room: [address] [address] [facility] documented in this encounter Visit Diagnoses Diagnosis Encounter for screening for other viral diseases documented in this encounter Care Teams Scanning Supervisor Relationship Specialty Start Date End Date Eusebia Whitaker PCP - General Family Practice 09/25/19 [facility] [address] [place] [address] documented as of this encounter
--- OUTSIDE RECORDS SUMMARY | 2021-11-27 11:33 | XMS_ITS | Encounter Summary ---
:1945 Author Organization [place] Address [address] [facility] [place] [address] Care Team Providers Name Role Phone Eusebia Whitaker Primary Care Provider Encounter Details Date Type Department Care Team Description 09/04/2019 Medical Correspondence [facility] Scan, ORDER Ramped[employer] Info Mgmt Non-Provider CONSULTANTS [facility] [address] [place] [address] Social History Tobacco Use Types [...] on filedocumented in this encounter Care Teams Nurses' Registry Director Relationship Specialty Start Date End Date Eusebia Whitaker PCP - General Family Practice 09/25/19 [facility] [address] [place] [address] documented as of this encounter
--- OUTSIDE RECORDS SUMMARY | 2021-11-27 11:33 | XMS_ITS | Encounter Summary ---
:1945 Author Organization [place] Address [facility] [place] [address] Care Team Providers Name Role Phone Eusebia [...] on filedocumented in this encounter Care Teams Heating And Ventilating Worker Relationship Specialty Start Date End Date Eusebia Whitaker PCP - General Family Practice 09/25/19 [facility] [address] [place] [address] documented as of this encounter
--- OUTSIDE RECORDS SUMMARY | 2021-11-27 11:33 | XMS_ITS | Encounter Summary ---
:1945 Author Organization [facility] Address [address] [place] [address] Care Team Providers Name Role Phone Unavailable Primary Care Provider Unavailable Encounter Details Date Type Department Care Team Description 01/12/2020 Clinical Communication Division of Nephrology Randal Weeks and Hypertension odilia Whitehead Jr., D.O. [place], [place] [address] [facility] [address] [place] [address] [phone] Social History Tobacco Use Types Packs/Day Years [...]
--- OUTSIDE RECORDS SUMMARY | 2021-11-27 11:33 | XMS_ITS | Encounter Summary ---
:1945 Author Organization [place] Address [facility] [place] [address] Care Team Providers Name Role Phone Unavailable Primary Care Provider Unavailable Encounter Details Date Type Department Care Team Description 09/04/2019 Orders Only [facility] Audi Maurer MD Encounter for Nephrology Clinic [facility] salima almazan for other [facility] viral diseases [address] [facility] [address] (Primary Dx) [place], [place] [phone] [place], [place] [address] (Wo rk) Social History Tobacco Use Types Packs/Day Years Used Date Never Assessed Sex Assigned at Date Recorded Not on file documented as of this encounter Plan of Treatment Not on filedocumented as of this encounter Results Asymptomatic COVID-19 Virus (Coronavirus) by PCR (09/29/2019 4:05 PM CDT) [facility] Method Time Signature COVID-19 Nasopharyngeal 09/29/2019 [place] Virus PCR to 4:10 PM CDT [facility] Source [facility] COVID-19 Not Detected 09/30/2019 [facility] Virus PCR to 1:10 PM CDT [facility] - GENOMICS Result CENTER LABORATORY Comment: Collection [...] N1,N2 gene targets of CoV2 and human STOCK BROKER as an internal control. A negative result [...] (Centers for Disease Control) Testing performed by [facility], Room 1-210, [address] [place] [id number]. T his test was developed and its performance characteristics determined b y the [facility]. It has not been cleared or [...] Organization Address City/State/ZIP Code Phon e Number [address] [address] [facility] Room: 1-210 [facility] [address] [place], [place] [address] [place] documented in this encounter Visit Diagnoses Diagnosis Encounter for screening for other viral diseases - Primary documented in this encounter
--- OUTSIDE RECORDS SUMMARY | 2021-11-27 11:33 | XMS_ITS | Encounter Summary ---
:1945 Author Organization [place] Address [address] [facility] [place] [address] Care Team Providers Name Role Phone Eusebia Whitaker Primary Care Provider Reason for Visit Reason Onset Date Comments Pt. Information/instruction 09/30/2019 Encounter Details Date Type Department Care Team Description 09/30/2019 Telephone [facility] Kaelyn Lopez, RN Pt. [facility] s Information/instruction [address] [place] [address] Social History Tobacco Use Types [...] on filedocumented in this encounter Care Teams Child Care Associate Teacher Relationship Specialty Start Date End Date Eusebia Whitaker PCP - General Family Practice 09/25/19 [facility] [address] [place] [address] documented as of this encounter
--- OUTSIDE RECORDS SUMMARY | 2021-11-27 11:33 | XMS_ITS | Clinical Summary ---
:1945 Author Organization [place] Address [address] [place] [address] Care Team Providers Name Role Phone Eusebia [...] age to complete this topic Care Teams Histologist Relationship Specialty Start Date End Date Eusebia Whitaker PCP - General Family Practice 09/25/19 [facility] [address] [place] [address]
--- OUTSIDE RECORDS SUMMARY | 2021-11-27 11:33 | XMS_ITS | Encounter Summary ---
:1945 Author Organization [facility] Address [address] [place] [address] Care Team Providers Name Role Phone Unavailable Primary Care Provider Unavailable Reason for Visit Reason Comments steroid injection tomorrow Encounter Details Date Type Department Care Team Description 01/12/2020 Clinical Division of yolande Weeksi on Communication Nephrology and Randal Whitehead Jr., tomorrow Hypertension in D.O. [place], [place] [address] [facility] [address] [place] [address] [phone] Social History Tobacco Use Types Packs/Day Years Used Date Smoking Tobacco: Never Assessed Sex Assigned at Date Recorded Not on file documented as of this encounter Miscellaneous Notes Telephone Encounter - Ynaet Conteh - 01/12/2020 10:41 AM CDT Patient's daughter, Irma, called. Patient is having a steroid injection in her back tomorrow, and Irma is wondering if that is ok for her to have given her recent diagnosis and all the medications she's on. Please call her at [phone]. Thanks documented in this encounter Plan of Treatment Scheduled Procedures Name Priority Associated Diagnoses Date/Time PLACEMENT ARTERIOVENOUS GRAFT UPPER Chronic Kidn ey Disease Stage 5 EXTREMITY Glomerular Filtration Rate Less Than 15 (HCC) documented as of this encounter Visit Diagnoses Not on filedocumented in this encounter
--- OUTSIDE RECORDS SUMMARY | 2021-11-27 11:33 | XMS_ITS | Encounter Summary ---
:1945 Author Organization [employer] Address [address] [place] [address]. [place] [address] Care Team Providers Name Role Phone Eusebia Whitaker Primary Care Provider Reason for Visit Diagnostic Imaging Ultrasound (Routine) - Closed Specialty Diagnoses / Procedures Referred By Contact Refer red To Contact Diagnoses Chronic kidney disease, stage III (moderate) (H) Proteinuria, unspecified type Audi Maurer MD Procedures US Biopsy Renal [employer] [address] [place] [address] Referral ID Status Reason Start Date Expiration Date Visits Requ ested Visits Authorized [id number] Closed 09/04/2019 09/03/2020 1 1 Encounter Details Date Type Department Care Team Description 10/01/2019 [facility] Audi Maurer MD Mandae [address] [facility] [address] [place] [id number] Chronic kidney disease, stage III (moder ate) (H); Encounter [facility] Imaging Non-Fv Credentialed Provider, Radiology Proteinuria, unspecified type [address] [place] [phone] Social History Tobacco Use Types Packs/Day Years [...] type documented in this encounter Care Teams Mail Clerk Bills Relationship Specialty Start Date End Date Eusebia Whitaker PCP - General Family Practice 09/25/19 [facility] [address] [place] [address] documented as of this encounter
--- OUTSIDE RECORDS SUMMARY | 2021-11-27 11:33 | XMS_ITS | Encounter Summary ---
:1945 Author Organization [facility] Address [address] [place] [address] Care Team Providers Name Role Phone Unavailable Primary Care Provider Unavailable Reason for Visit Appointment Request (Routine) - Closed Specialty Diagnoses / Procedures Referred By Contact Refer red To Contact Nephrology and Hypertension Referral ID Status Reason Start Date Expiration Date Visits Requ ested Visits Authorized [id number] Closed 01/15/2020 01/14/2021 1 1 Encounter Details Date Type Department Care Team Description 01/20/2020 External Outreach Division of Wanda Weeks dney Disease Stage 4 Glomerular Filtration Rate 15-29 (HCC) (Primary Dx); Nephrology and Randal Whitehead Jr., Hypertension And Chronic Kidney Disease Stage 4 (HCC); Hypertension in D.O. Proteinuria; [place], [place] [address] [facility] Diabetes Mellitus Type 2 (HCC); [address] [place], [place] Chronic Right Heart Failure (HCC) [place] [phone] Social History Tobacco Use Types Packs/Day Years Used Date Smoking Tobacco: Never Assessed Sex Assigned at Date Recorded Not on file documented as of this encounter Progress Notes Randal Weeks Jr., D.O. - 01/20/2020 3:00 PM CDT Please see scanned in note under document viewer tab for the [facility] outreach visit from this date. documented in [...]
--- OUTSIDE RECORDS SUMMARY | 2021-11-27 11:33 | XMS_ITS | Encounter Summary ---
:1945 Author Organization [place] Address [facility] [place] [address] Care Team Providers Name Role Phone Eusebia [...] on filedocumented in this encounter Care Teams Hotel Housekeeper Relationship Specialty Start Date End Date Eusebia Whitaker PCP - General Family Practice 09/25/19 [facility] [address] [place] [address] documented as of this encounter
--- OUTSIDE RECORDS SUMMARY | 2021-11-27 11:33 | XMS_ITS | Encounter Summary ---
:1945 Author Organization [facility] Address [address] [place] [address] Care Team Providers Name Role Phone Unavailable Primary Care Provider Unavailable Reason for Visit Appointment Request (Routine) - Closed Specialty Diagnoses / Procedures Referred By Contact Refer red To Contact Nephrology and Eusebia Whitaker M.D. Hypertension [address] [place] [address] Referral ID Status Reason Start Date Expiration Date Visits Requ ested Visits Authorized [id number] Closed 12/25/2019 12/24/2020 1 1 Encounter Details Date Type Department Care Team Description 01/07/2020 External Outreach Division of Reina Weeks And Chronic Kidney Disease Stage 4 (HCC) (Primary Dx); Nephrology and Randal Whitehead Jr., Chronic Kidn ey Disease Stage 4 Glomerular Filtration Rate 15-29 (HCC); Hypertension in D.O. Anemia Of Chronic Renal Disease; [place], [place] [address] [facility] Osteodystrophy Renal; [address] [place], [place] Diabetes Mellitus Type 2 (HC C); [place] [address] Chronic Right Heart Failure (HCC); [id number] Proteinuria Social History Tobacco Use Types Packs/Day Years Used Date Smoking Tobacco: Never Assessed Sex Assigned at Date Recorded Not on file documented as of this encounter Consult Notes Randal Weeks Jr., D.O. - 01/07/2020 11:00 AM CDT Please see scanned in note under document viewer tab for the [facility] outreach visit from this date. documented in [...]
--- OUTSIDE RECORDS SUMMARY | 2021-11-27 11:33 | XMS_ITS | Encounter Summary ---
:1945 Author Organization [place] Address Count includes the [facility]0 [facility] [place] [address] Care Team Providers Name Role Phone Eusebia [...] on filedocumented in this encounter Care Teams Segment Assembler Relationship Specialty Start Date End Date Eusebia Whitaker PCP - General Family Practice 09/25/19 [facility] [address] [place] [address] documented as of this encounter
--- OUTSIDE RECORDS SUMMARY | 2021-11-27 11:33 | XMS_ITS | Encounter Summary ---
:1945 Author Organization [place] Address [address] [facility] [place] [address] Care Team Providers Name Role Phone Eusebia Whitaker Primary Care Provider Encounter Details Date Type Department Care Team Description 09/04/2019 Medical Correspondence [facility] Scan, US GUIDED RENAL Health Info Mgmt Non-Provider BIOPSY ORDSamy Morales Srvcs [facility] [address] [facility] [place] [address] Social History Tobacco [...] on filedocumented in this encounter Care Teams Centrifuge Operator Relationship Specialty Start Date End Date Eusebia Whitaker PCP - General Family Practice 09/25/19 [facility] [address] [place] [address] documented as of this encounter
--- OUTSIDE RECORDS SUMMARY | 2021-11-27 11:33 | XMS_ITS | Encounter Summary ---
:1945 Author Organization [place] Address [facility] [place] [address] Care Team Providers Name Role Phone Eusebia Whitaker Primary Care Provider Encounter Details Date Type Department Care Team Description 10/01/2019 Hospital Encounter [facility] Non-Fv Cred entialed Provider, Radiology [facility] Care [address] Audi Maurer MD [employer] [address] [place] [address] [address] [place] [address] Social History Tobacco Use [...] cannot control If you have questions call: [facility] Radiology Dept @ [phone] 1. Cancel bx today and reschedule once [...] start date,and side effects, yes. Pt to black pickler new medication at her pharmacy today. Items [...] If the visitor has positive symptoms, notify covering and lining supervisor/manger Per policy, the visitor will need [...] Signature INR 1.10 0.86 - 1.14 10/01/2019 [place] 9:36 AM CDT [facility] Specimen Anatomical Collection Method Collection Time Receive d Time (Source) Location / / Volume Laterality Blood specimen 10/01/2019 9:19 AM 020 9:20 (specimen) CDT AM CDT Adrian Kern MD LAB - BLOOD ORDERABLES Performing Organization Address City/State/ZIP Code Phon e Number [facility] [address] [place] [phone] [facility] [address] [place] [address], [place] [phone] (ABNORMAL) Basic metabolic panel (10/01/2019 9:19 AM CDT) Analysis Performed At [facility] Time Signature Sodium 138 133 - 144 10/01/2019 [place] mmol/L 9:41 AM [facility] Potassium 3.5 3.4 - 5.3 10/01/2019 [place] mmol/L 9:41 AM [facility] Chloride 106 94 - 109 10/01/2019 [place] mmol/L 9:41 AM [facility] Carbon Dioxide 26 20 - 32 10/01/2019 [place] mmol/L 9:51 AM [facility] Anion Gap 6 3 - 14 10/01/2019 [place] mmol/L 9:51 AM [facility] Glucose 102 (H) 70 - 99 10/01/2019 [place] mg/dL 9:51 AM [facility] Urea Nitrogen 35 (H) 7 - 30 10/01/2019 [place] mg/dL 9:51 AM [facility] Creatinine 2.79 (H) 0.52 - 10/01/2019 [place] 1.04 mg/dL 9:51 AM [facility] GFR Estimate 16 (L) >60 10/01/2019 [place] mL/min/{1. 9:[address] [facility] 73_m2} [facility] Comment: Non GFR Calc Starting 03/26/2018, serum creatinine ba sed estimated GFR (eGFR) will be calculated using the Chronic Kidney Dise [facility] Epidemiology Collaboration (CKD-EPI) equation. GFR Estimate If 18 (L) >60 mL/min/{1.73_m2} 10/01/2019 9: 51 AM [facility] Comment: GFR Calc Starting 03/26/2018, serum creatinine ba sed estimated GFR (eGFR) will be calculated using the Chronic Kidney Dise ase Epidemiology Collaboration (CKD-EPI) equation. Calcium 8.9 8.5 - 10.1 mg/dL 10/01/2019 9:51 AM CDT [facility] Specimen Anatomical Collection Method Collection Time Receive d Time (Source) Location / / Volume Laterality Blood specimen 10/01/2019 9:19 AM 020 9:20 (specimen) CDT AM CDT Adrian Kern MD LAB - BLOOD ORDERABLES Performing Organization Address City/State/ZIP Code Phon e Number [facility] [address] [place] [address] [phone] [facility] [address] [place] [address], [place] [phone] Platelet function closure with reflex (10/01/2019 9:19 AM CDT) P athologist Signature PLT Funct 149 <170 sec 10/01/2019 [place] COL/EPI 10:13 AM CDT [facility] Specimen Anatomical Collection Method Collection Time Receive d Time (Source) Location / / Volume Laterality Blood specimen 10/01/2019 9:19 AM 020 9:20 (specimen) CDT AM CDT Adrian Kern MD LAB - BLOOD ORDERABLES Performing Organization Address City/State/ZIP Code Phon e Number [facility] [address] [place] [address] [facility] [address] [place] [address], [place] [phone] (ABNORMAL) CBC with platelets (10/01/2019 9:19 AM CDT) Analysis Performed At Patho logist Time Signature WBC 5.3 4.0 - 11.0 10/01/2019 [place] 10e9/L 9:26 AM [facility] RBC Count 3.58 (L) 3.8 - 5.2 10/01/2019 [place] 10e12/L 9:26 AM [facility] Hemoglobin 10.2 (L) 11.7 - 10/01/2019 [place] 15.7 g/dL 9:26 AM [facility] Hematocrit 30.8 (L) 35.0 - 10/01/2019 [place] 47.0 % 9:26 AM T [facility] MCV 86 78 - 100 10/01/2019 [place] fl 9:26 AM T [facility] MCH 28.5 26.5 - 10/01/2019 [place] 33.0 pg 9:26 AM [facility] MCHC 33.1 31.5 - 10/01/2019 [place] 36.5 g/dL 9:26 AM [facility] RDW 14.5 10.0 - 10/01/2019 [place] 15.0 % 9:26 AM [facility] Platelet Count 170 150 - 450 10/01/2019 [place] 10e9/L 9:26 AM [facility] Specimen Anatomical Collection Method Collection Time Receive d Time (Source) Location / / Volume Laterality Blood specimen 10/01/2019 9:19 AM 020 9:20 (specimen) CDT AM CDT Adrian Kern MD LAB - BLOOD ORDERABLES Performing Organization Address City/State/ZIP Code Phon e Number [facility] [address] [place] [address] [facility] [address] [place] [phone], [facility] [phone] documented in this encounter Visit Diagnoses Not [...] dose documented in this encounter Care Teams Svp Digital Ad Sales Relationship Specialty Start Date End Date Eusebia Whitaker PCP - General Family Practice 09/25/19 [facility] [address] [place] [address] documented as of this encounter
== END 2021-11-12 14:44 | disposition home or self-care (01) ==
LOC: AMB 11-27 11:27
PROVIDERS: PCP Family Medicine; Visit Provider Emergency Medicine Emergency Medical Services
DX: R41.82 Altered mental status, unspecified (principal); M54.9 Dorsalgia, unspecified
CPT/HCPCS: A0425; A0426

== ENCOUNTER 2021-12-17 11:29 | Outpatient (CLI) | payer OTHER, SELFPAY ==
--- OUTSIDE RECORDS SUMMARY | 2022-01-04 15:47 | XMS_ITS | Encounter Summary ---
:1945 Author Organization [employer] Address [address] [place] [address] Phone Care Team Providers Name Role Phone Eusebia Whitaker MD Primary Care Provider Encounter Details Date Type Department Care Team Description 11/28/2019 Office Visit [facility] Gisela Maurer MD Chronic kidney disease stage 4 (CMS-HCC) (Primary Dx); [facility] [address] Essential (primary) hyperten mana; [address] Anemia in chronic kidney disease; [address] [place] [address] [place], [place] [phone] [address] Social History Tobacco Use Types Packs/Day Years [...] based on results. Check iron panel. 4) group home (current) use of non-steroidal anti-inflammatories (NSAID): now [...] y.o. female with PMH of female from [facility] , whom I had initially seen [...] was planned when she traveled over from [place] but had to be canceled on the [...] - lt base CV =s1+s2 PA =soft SPINNER HAND - nonfocal LE Edema, b/l pitting. Audi [facility]urer MD [facility] [phone] No orders of the defined types were placed in this encounter. documented in this encounter Plan of Treatment Not on filedocumented as of this encounter Visit Diagnoses Diagnosis Chronic kidney disease stage 4 (CMS-HCC) - Primary Essential (primary) hypertension Anemia in chronic kidney disease Isolated proteinuria documented in this encounter Care Teams Pulmonology Technician Relationship Specialty Start Date End Date Eusebia Whitaker MD PCP - General Family Medicine 11/24/[address] [place] [address] documented as of this encounter
--- OUTSIDE RECORDS SUMMARY | 2022-01-04 15:47 | XMS_ITS | Encounter Summary ---
:1945 Author Organization [employer] Address [address] [place] [address] Phone Care Team Providers Name Role Phone Unavailable Primary Care Provider Unavailable Reason for Visit Reason Onset Date Comments Med Refill 08/08/2019 Encounter Details Date Type Department Care Team Description 08/08/2019 Refill [facility] Deena Hadley RN [address] [facility] [address] [place], [place] [address] Social History Tobacco Use Types Packs/Day Years [...] was unable to find it in the [employer] database. Scripts called in as directed below. I faxed her labs order for 2 weeks. Will await those results and make further plans. MD Deena Harrison MA ?? D/C valsartan and Chlorthalidone Start Furosemide 20 mg BID , Coreg 12.5 mg BID ( monitor HR) . Irma will give you the details of local pharmacy in [place] when you call her. Labs at [place] in 2 wks. If stable / worse, pt will come back to [facility] and plan on getting a renal biopsy done. Labs - RFp, CBC, Iron panel , ferritin F/u 1 month documented in this encounter Plan of Treatment Not on filedocumented as of this encounter Visit Diagnoses Not on filedocumented in this encounter
--- OUTSIDE RECORDS SUMMARY | 2022-01-04 15:47 | XMS_ITS | Encounter Summary ---
:1945 Author Organization [employer] Address [address] [place] [address] Phone Care Team Providers Name Role Phone Unavailable Primary Care Provider Unavailable Reason for Visit Reason Onset Date Comments Results 07/25/2019 Encounter Details Date Type Department Care Team Description 07/25/2019 Telephone [facility] Deena Hadley RN Results [address] [place] [phone] Social History Tobacco Use Types Packs/Day Years [...] Dr. Maurer, labs from 06/29 are worse. Hired Help up to 2.71 from 1.9. Pt should hydrate well and recheckBMP, UA, alb/molding machine operator ratio and CBC next week. She may need renal bx. Daughter will call her mother who is still in [place] with directions. Lab orders were faxed to [facility] in June. If her mother is feeling bad in any way, she will call us. documented in this encounter Plan of Treatment Not on filedocumented as of this encounter Visit Diagnoses Not on filedocumented in this encounter
--- OUTSIDE RECORDS SUMMARY | 2022-01-04 15:47 | XMS_ITS | Encounter Summary ---
:1945 Author Organization [employer] [facility] [employer] Address [address] [place] [address] Phone Care Team Providers Name Role Phone Unavailable Primary Care Provider Unavailable Reason for Visit Reason Onset Date Comments Follow-up 06/20/2019 Encounter Details Date Type Department Care Team Description 06/20/2019 Telephone [facility] Deena Hadley RN Follow-up [address] [facility] [address] [place], [place] [address] Social History Tobacco Use Types Packs/Day Years [...] 06/23/2019 1:10 PM CDT Orders faxed to [facility] in [place]. Irma informed. elephone Encounter - Audi Maurer MD - 06/23/2019 10:20 AM CDT That's fine. She can get - RFP, CBC, UA, UPCR locally and have it sent to us. elephone Encounter - Deena Hadley RN - 06/20/2019 10:44 AM CDT Courtney is in [place] visiting family. She is not wanting to [...]
--- OUTSIDE RECORDS SUMMARY | 2022-01-04 15:47 | XMS_ITS | Encounter Summary ---
:1945 Author Organization [employer] [employer] Address [address] [place] [address] Phone Care Team Providers Name Role Phone Eusebia Whitaker MD Primary Care Provider Encounter Details Date Type Department Care Team Description 12/25/2019 [facility]phone [facility] Deena Hadley, [place] [address] [facility] [address] [place], [place] [address] Social History Tobacco Use Types Packs/Day Years [...] got the report and when I called [facility] they said she didn't have it done. I talked with her daughter, Irma, today. Courtney was admitted to [facility] in [place] shortly after visit here. ECHO was done [...] on filedocumented in this encounter Care Teams Pipe Fittings Molder Relationship Specialty Start Date End Date Eusebia Whitaker MD PCP - General Family Medicine 11/24/19 [address] [facility] [address] [place] [address] documented as of this encounter
--- OUTSIDE RECORDS SUMMARY | 2022-01-04 15:47 | XMS_ITS | Encounter Summary ---
:1945 Author Organization [facility] Address [address] [address] Phone Care Team Providers Name Role Phone Unavailable Primary Care Provider Unavailable Reason for Visit Reason Onset Date Comments Results 08/04/2019 Encounter Details Date Type Department Care Team Description 08/04/2019 [facility] Deena Hadley RN Results [address] [place], [place] [address] Social History Tobacco Use Types Packs/Day Years [...] mom would like to establish care in [place] or if she would be coming back to [place] soon and then we should probablyscheduled FUV here to discuss next steps. Telephone Encounter - Audi Maurer MD - 08/04/2019 3:27 PM CDT She should probably find a local it disaster recovery manager if there is no plan to return to [place]. She will likely need a renal biopsy. elephone Encounter - Deena Hadley RN - 08/04/2019 1:33 PM CDT Repeat labs from [facility] in [place] will be scanned in under MEDIA. Personal Lines Appraiser is up again. Are you thinking biopsy? Should we schedule a phone visit with pt in [place]? When I last spoke with her daughter there was no return to [place] scheduled. documented in this encounter Plan of Treatment Not on filedocumented as of this encounter Visit Diagnoses Not on filedocumented in this encounter
--- OUTSIDE RECORDS SUMMARY | 2022-01-04 15:47 | XMS_ITS | Clinical Summary ---
:1945 Author Organization [employer] [place] [address] Care Team Providers Name Role Phone Julio Spears MD Primary Care Provider Allergies Active Allergy Reactions Severity Noted Date Comments Simvastatin Dizziness 11/29/2017 Medications Medication Sig Dispensed Refills Start Date End Date Status atorvastatin (LIPITOR) Take 20 mg by mouth 0 Active 20 mg at bedtime. tabletIndications: atherosclerotic cardiovascular disease acetaminophen Take 650 mg by 0 A ctive (TYLENOL) 325 mg mouth every 4 hours tabletIndications: if needed for Pain. arthritic pain Max acetaminophen dose: 4000mg in 24 hrs. Dialyvite 100-1 mg Take 1 Tablet by 0 09/29/2021 Active tabIndications: mouth once daily. vitamin deficiency calcium carbonate Take 600 mg by 0 Active (CALTRATE) 600 mg mouth in the calcium (1,500 mg) morning and 600 mg tabletIndications: in the evening. hypocalcemia Take with meals. prevention isosorbide mononitrate Take 30 mg by mouth 0 Active (IMDUR) 60 mg extended in the morning and release tablet 24 30 mg in the hourIndications: evening. prevention of anginal pain in coronary artery disease ketotifen (ZADITOR) Place 1 Drop into 0 Active 0.025 % (0.035 %) right eye 2 times ophthalmic daily if needed for solutionIndications: Eye Irritation. allergic conjunctivitis ceFAZolin (ANCEF; Inject 1 g 30 g 1 11/22/2021 Active KEFZOL) 1 gram intravenous every 2 injection 24 hours. Give dose ADD-VANTAGEIndications each evening. Last : bacteremia day 01/11/22. Draw these labs weekly while on IV antibiotics: cbc, diff, c-reactive protein. Fax results to Dr. Roca at [phone]. apixaban (ELIQUIS) 2.5 Take 1 Tablet (2.5 0 11/29/19 Active mg tabletIndications: mg) by mouth 2 prevent times daily. thromboembolism in chronic atrial fibrillation hydrALAZINE Take 1 Tablet (50 0 11/28/2021 Active (APRESOLINE TABLET) 50 mg) by mouth 3 mg tabletIndications: times daily. HTN (hypertension) lisinopriL (PRINIVIL; Take 1 Tablet (20 0 11/28/2021 Active ZESTRIL) 20 mg mg) by mouth 2 tabletIndications: HTN times daily. (hypertension) pantoprazole Take 1 Tablet (40 0 11/28/2021 Active (PROTONIX) 40 mg mg) by mouth 2 delayed-release times daily before tabletIndications: meals. Gastroesophageal reflux disease, unspecified whether esophagitis present metoprolol tartrate Take 1 Tablet (50 0 11/29/2021 Active (LOPRESSOR) 50 mg mg) by mouth 2 tabletIndications: times daily. Paroxysmal atrial fibrillation (HC) hydrOXYzine HCL Take 1 Tablet (10 0 11/29/2021 Active (ATARAX) 10 mg mg) by mouth every tabletIndications: 6 hours if needed Itching for Itching. SENNOSIDES ORAL Take 5 mg by mouth. 0 Active Q 4 hours prn omeprazole (PRILOSEC) 0 12/14/2021 Active 20 mg Delayed-Release capsule ondansetron (Zofran) 4 Take 1 Tablet (4 0 01/02/2022 Active mg tablet mg) by mouth every 8 hours if needed for Nausea/Vomiting. Active Problems Problem Noted Date Subacute bacterial endocarditis 11/30/2021 PAF (paroxysmal atrial fibrillation) 11/26/2021 Staphylococcus aureus bacteremia 11/13/2021 ESRD on hemodialysis 11/12/2021 Sepsis 11/12/2021 Acute encephalopathy 11/12/2021 Elevated troponin 11/12/2021 Chronic right heart failure 01/07/2020 Hypertensive urgency 12/06/2019 PAD (peripheral artery disease) 12/05/2019 HTN (hypertension) 12/05/2019 Chronic heart failure with preserved ejection fraction (HFpEF) 12/05/2019 History of colon polyps 11/29/2017 Overview: Colonoscopy 11/2017 polyps, repeat in 5 y ears Acute midline low back pain without sciatica Resolved Problems Problem Noted Date Resolved Date Chronic diastolic heart failure 11/12/2021 01/02/20 Chest pain 12/05/2019 01/01/2022 DIMAS (acute kidney injury) 12/05/2019 11/13/2021 DM2 (diabetes mellitus, type 2) 12/05/2019 12/05/19 20 Encounters Date Type Specialty Care Team Description [facility] MD Carlito (Endocarditis ) 01/02/2022 Office Visit Keyona Gaxiola PA Follow Up (Endocarditis follow up (per Kamaljit)/Pt favian es any SOB, dizziness or chest discomfort at t his time ) 01/02/2022 Travel 12/30/2021 Hospital Encounter Alma Nur Close d compression [facility] fracture of L5 lumbar vertebra, initi al encounter (HC) 12/30/2021 Office Visit Jd Hickman Follow Up ( f/u to [facility] hospital stay , closed compressions fx L5) 12/30/2021 Ancillary Canceled (Other ) Procedure 12/30/2021 Travel 12/29/2021 Telephone Harjit Roca [facility] MD Carlito 12/28/2021 Telephone Aroldo Alberto Follow Up MD Boom 12/21/2021 Telephone Aroldo Alberto Results (Echo) MD Boom 12/17/2021 Emergency Lizzeth Christensen (Primary Dx); DO Nii Joyner alter ation of awareness; ESRD on hemodia lysis (HC) 12/16/2021 Hospital Encounter Carlos Helton End ocarditisAnjel MD unspecified chr onicity, unspecified end ocarditis type 12/16/2021 Travel 12/16/2021 Telephone Julio Spears MD 12/13/2021 Orders Only Scanner <No scans attac hed> 12/13/2021 Telephone Hilton Zafar MD 12/13/2021 Telephone Aroldo Alberto Pre Procedure ( 12/16/ ALIDA MD [facility] - [facility]) 12/07/2021 Telephone Harjit Roca MD 12/06/2021 Orders Only Scanner <No scans attac hed> 11/25/2021 Travel 11/24/2021 Telephone Harjit Roca [facility] F/U MD Carlito 11/22/2021 Orders Only Reyes Schofield NP <No scan s attached> 11/17/2021 Travel 11/13/2021 Travel 11/12/2021 - Hospital Encounter s, U Hospitalist Acu te encephalopathy (Primary Dx); 11/30/2021 Svc Staphylococcus aureus bacteremia; Pilo Esparza Closed c ompression fracture of L5 lumbar vertebra, initial encounter (HC); MD Arnulfo Anemia of chronic renal failure, stage 5 (HC); Deborah Franz, Paroxys mal atrial fibrillation (HC); HTN (hypertension); Solomon Dee, Gastrorodrigue sophageal reflux disease, unspecified whether esophagitis present; Itching Discharge Summary - Solomon Dee MD - 11/30/2021 1:10 PM CDT Images from the original not e were not included. HOSPITALIST DISCHARGE SUMMAR Y ? ? [facility] Admission Date: 11/12/2021 Discharge Date: 11/30/2021 Discharge Plan: Cynthia doa was discharged to fdc facility. Principal Diagnosis Below Hospital Problem List Principal Problem: Staphylococcus aureus bacte remia Active Problems: PAD (peripheral artery dise ase) (HC) HTN (hypertension) Chronic right heart failure (HC) ESRD on hemodialysis (HC) Chronic diastolic heart peterson lure (HC) Sepsis (HC) Acute encephalopathy Elevated troponin Acute midline low back pain without sciatica Atrial fibrillation (HC) Subacute bacterial endocard itis ADDITIONAL COMMENTS REGARDIN G DIAGNOSIS SPECIFICITY Additional Diagnosis [facility] Hospital Course Cynthia Holbrook is a 76 y.o . female with a history of ESRD on hemodialysis, chronic diastolic CHF, chronic right-sided heart failure, hypertension, PAD who is being directly admitted 11/12/2021 after pre senting to outside hospital for evaluation of weakness, confusion, and back pain. Blood cultures positive for a. ALIDA shows bacterial endocarditis. MRI lumbar spine with discitis/fasciitis. Patient status post L4-5 facet joint aspiration, micro - 11/15/2021. ID recommending 8 weeks IV a ntibiotics with Ancef. Initi al blood cultures positive. Blood culture from 11/16 with no growth to date. ALIDA report states vegetation is mitral valve but this is inaccurate as per cardiology and infectio us disease vegetation is on tricuspid valve. Endocarditis is planned to be treated medically as well. Per patient's daughter, on the patient suffered an episode of unresponsiveness following dialysis. She was subsequently brought to [facility] ED and underwent work-up including head CT which was re portedly unremarkable. She w as subsequently discharged home from the ED. She had a follow-up appointment with PCP 11/09 and was doing okay at that time. She had her usual dialysis session 11/10 and returned home more fatigued and weak than usual. On 11/11 the patient remains significantly weak and was having difficulty getting out of bed despite her daughter's help. She was subsequently brought to [facility] ED. ?? In [facility] ED triage she had a temperature of 100.8F but was initially hemodynamically stable. Lab work-up notable for sodium 129, potassium 5.2, bicarb 22, BUN 33, lactate 1.5, WBC 12.67, hemoglobin 12.1 with MCV 94, platelet 120, D-dimer 7.8 (on hemolyzed specimen per report), troponin 0.19 -> 0.17, CRP 16.4, ESR 26. COVID-19 and influenza negative. CXR without any acute findings. Thoracic and lumbar x-ray showed scolios is, no fractures, multilevel degenerative changes and bilateral SI degenerative changes; right hip degenerative changes; left PRAMOD. Direct admission requested to [facility] late 11/11/21 as [facility] did not have dialysis capabilities; she was ultimately transferred the afternoon of 11/12/21. ?? On arrival the patient acute ly encephalopathic and meeting sepsis criteria with temp 102.7F, pulse 102. Daughter indicated a notable change since at [facility] with increased confusion. The patient make s minimal urine and reported ly urinates maybe once per day. The daughter does note the patient had her tunneled catheter exchanged 1 to 2 weeks prior to admission. Blood cultures (11/12 x2 and x2) returned positive for MSSA bacteremia. Patient found to have discit is on lumbar MRI with subsequent L4-L5 aspiration completed on 11/15/2021. Infectious disease following and recommending Ancef. Spine consulted and recommending TLSO brace and no surgical intervention at this time. Cardiology following with at rial fibrillation with RVR and ALIDA 11/17. With a mass on the posterior leaflet of tricuspid valve attached with mobile echodensity consistent with vegetation, moderate tricuspid regurgitation, and a patent foramen ovale. Nephrology following and ranjit neled dialysis catheter was removed. PCAD replaced 11/22 which continues to bleed despite IR placing a stitch and multiple pressure dressings. Eliquis is being held. 11/30 Eliquis restarted no bl eeding x 2 days , ready for d/c Recommendations for Outpatie nt Provider ? ? PCP: Julio Spears MD Recommendations for outpati ent provider Specific recommendations to be addressed at the follow up visit: no specific recommendations , routine post-hospital and medical follow-up. Medication regimen changes: see Hospital Course above. Follow-up labs/imaging: ID o rdering labs Other specialty follow-up no t included in DC orders: None Special considerations: none . Functional evaluations: Fall Risk: Total Score (If 5 or > is High Risk): 5 (11/28/21 0200) NuDESC (>/=2 abnormal): 0 ( 11/28/21199) MOCA: // SLUMS: Discharge Medications Your Home Medicines START taking these medicines Instructions apixaban 2.5 mg tablet For diagnoses: Paroxysmal at rial fibrillation (HC) Commonly known as: ELIQUIS Take 1 Tablet (2.5 mg) by m outh 2 times daily. ceFAZolin 1 gram injection A DD-VANTAGE For diagnoses: Staphylococcu s aureus bacteremia Commonly known as: ANCEF; KE FZOL Inject 1 g intravenous ever y 24 hours. Give dose each evening. Last day 01/11/22. Draw these labs weekly while on IV antibiotics: cbc, diff, c-reactive protein. Fax results to Dr. Roca at [phone]. hydrOXYzine HCL 10 mg tablet For diagnoses: Itching Commonly known as: ATARAX Take 1 Tablet (10 mg) by mo uth every 6 hours if needed for Itching. lisinopriL 20 mg tablet For diagnoses: HTN (hyperten mana) Commonly known as: PRINIVIL; ZESTRIL Take 1 Tablet (20 mg) by mo uth 2 times daily. metoprolol tartrate 50 mg ta blet For diagnoses: Paroxysmal at rial fibrillation (HC) Commonly known as: LOPRESSOR Take 1 Tablet (50 mg) by mo uth 2 times daily. pantoprazole 40 mg delayed-r elease tablet For diagnoses: Gastroesophag eal reflux disease, unspecified whether esophagitis present Commonly known as: PROTONIX Replaces: omeprazole 20 mg D elayed-Release capsule Take 1 Tablet (40 mg) by mo uth 2 times daily before meals. CONTINUE taking these medici mary Instructions acetaminophen 325 mg tablet Commonly known as: TYLENOL Take 650 mg by mouth every 4 hours if needed for Pain. Max acetaminophen dose: 4000mg in 24 hrs. atorvastatin 20 mg tablet Commonly known as: LIPITOR Take 20 mg by mouth at bedt yousuf. calcium carbonate 600 mg narinder cium (1,500 mg) tablet Commonly known as: CALTRATE Take 600 mg by mouth in the morning and 600 mg in the evening. Take with meals. Dialyvite 100-1 mg Tab Generic drug: B Complex-Yady min C-Folic Acid Take 1 Tablet by mouth once daily. isosorbide mononitrate 60 mg extended release tablet 24 hour Commonly known as: IMDUR Take 30 mg by mouth in the morning and 30 mg in the evening. Zaditor 0.025 % (0.035 %) op hthalmic solution Generic drug: ketotifen Place 1 Drop into right eye 2 times daily if needed for Eye Irritation. TAKE THE MEDICINE(S) YOU REPORTED BELOW. The provider has reviewed how you said you take these medicine(s) and wants you to keep taking them as you normally do. Your prescription has been adjusted to reflect this. Instructions hydrALAZINE 50 mg tablet For diagnoses: HTN (hyperten mana) Commonly known as: APRESOLIN E TABLET Take 1 Tablet (50 mg) by mo uth 3 times daily. STOP taking these medicines carvediloL 25 mg tablet Commonly known as: COREG cholecalciferol (Vitamin D3) 2,000 unit tablet Claritin 10 mg tablet Generic drug: loratadine Coenzyme Q10 200 mg capsule ferrous sulfate (65 mg eleme ntal) tablet furosemide 20 mg tablet Commonly known as: LASIX gabapentin 100 mg capsule Commonly known as: NEURONTIN omeprazole 20 mg Delayed-Rel ease capsule Commonly known as: PRILOSEC Replaced by: pantoprazole 40 mg delayed-release tablet oxybutynin 5 mg tablet Commonly known as: DITROPAN Where to get your medicines Prescriptions for these medi cines or supplies were NOT printed nor sent to your preferred pharmacy. Check with your doctor if you have questions. Check with your doctor if yo u have questions. apixaban 2.5 mg tablet ceFAZolin 1 gram injection A DD-VANTAGE hydrALAZINE 50 mg tablet hydrOXYzine HCL 10 mg tablet lisinopriL 20 mg tablet metoprolol tartrate 50 mg ta blet pantoprazole 40 mg delayed-r elease tablet Pertinent Findings / Procedu res First weight: 79.4 kg (175 l b) (11/12/21 1754) Last weight: 82.8 kg (182 lb 8.7 oz) (11/30/21 0600) Vitals above Consultants Encounter Notes Consults Angie Atkinson NP Levi se Practitioner - Family ? ? 11/24/2021 Genesis Poon, MARTNÍEZ Nurse Practitioner - Family ? ? 11/22/2021 Cirilo Davis Chaplain 2021 Tiffanie Peñaloza Chaplain 11/14 Alma Nur PA Ph ysician Test Carrier ? ? 11/14/2021 Aroldo Alberto MD Car diovascular Disease ? ? 11/13/2021 Yoan Quintana MD Infect ious Diseases ? ? 11/13/2021 Jamari Harry, DO Crit [facility] Medicine ? ? 11/13/2021 Florentino Keller MD Nephr ology ? ? 11/13/2021 Diet / Activity / Follow-Up After Discharge Orders and I nstructions Activity and weight bearing as tolerated Activity and weight bearing status as tolerated. Nursing staff to re-evaluate and modify as appropriate. Admission H&P Valid: Yes Agency Standing Orders: Yes All Orders Valid For 45 Day s Unless Otherwise Indicated Allergies: -- Simvastatin -- Dizziness Diet Renal/Dialysis (or facility equivalent) Discharge Condition: Stabil ized Discharge Potential: Length of Stay LESS Than 30 Days Discharge Summary: Enclosed Follow Up Appointment(s): Please call [phone] op tion 1 for an appointment if no appointment scheduled within 1 week of discharge When to follow up: Other Co mment - 4-6 weeks Free of Communicable Diseas e: Yes Give 2-Step Mantoux: Yes, U nless Current or Contraindicated Level of Care: Skilled Moving around after your ho spital visit: 1. Sitting as tolerated, bu t no longer than 60 minutes at a time. 2. Limit to no forward or si de bending, twisting, pushing, pulling or reaching. Lifting restrictions: Liftin g restriction of less than 5 pounds 3. Wear brace at all times w hen out of bed if given one. Remove brace when laying in bed and for showering. 4. Walk for exercise only. NURSING COMMUNICATION PICC line cares per facilit y PATIENT COMMUNICATION Tunneled Central Catheter D ischarge Instructions: You had a tunneled central a ccess device placed. Part of the device is outside of your body and part of the device runs under the skin into a vein. Your nurses and doctors will use the tunneled catheter for your future treatments. Care Instructions: - If you received sedation f or your procedure, do not drive or operate heavy machinery for the rest of the day. - Keep dialysis catheter sit e dry. Do not get wet. - Never immerse your cathete r in water; no swimming, hot tubs, or tub baths. - If you experience signific ant bleeding at site, apply pressure with hands above the clavicle bone, sit upright. Seek medical assistance for any of the following: - Uncontrolled bleeding. - You have a fever (greater than 101??F (38.3C)) - Purulent (yellow/green/fou l smelling) drainage from catheter insertion site. - Increasing redness at cath eter site. - Increasing pain at cathete r site. - Increasing swelling at cat heter site. Call [facility] ) with questions or concerns. Patient Aware of Diagnosis: Yes Patient may leave SNF super vised with medications Primary Care Provider brittni w up appointment(s) Julio Spears MD When to follow up: 1 to 5 d ays Rehab Potential: Fair Treatment - Occupational Th erapy Eval and Treat Treatment - Physical Therap y Eval and Treat Treatment Options: Full Res uscitation Vital Signs per facility ro utine Weight per facility routine Weigh on admission to skill ed nursing facility When should you be concerne d? At the fdc faci lity let your health care providers know if you notice any changes in your condition. Who can the receiving facil ity call with order questions? If any questions arise with in the first 24 hours after discharge contact our service at Solomon Dee MD P [phone] . [facility] at the [facility]? You were in the hospital fo r infection . XR SPINE LUMBAR 2 VIEWS Standing Pending Studies Lab results that may not be resulted at time of discharge: (From admission through now) Start Ordered 11/15/21 0700 ANAEROBIC CUL TURE ONE TIME, TODAY Question: Enter specific spe cimen site or source. Answer: left L4-5 facet joint aspirate 11/15/21 0655 Total time spent on discharg e coordination: 50 minutes. Patient was seen and examined today. Solomon Dee MD Hospitalist, [facility] ? ? [phone] from Last 3 Months Family History Medical History Relation Name Comments Cancer Brother Diabetes Brother Hyperlipidemia Brother Osteoporosis Father Cancer Mother Hypertension Mother Relation Name Status Comments Brother Father Mother Social History Tobacco Use Types Packs/Day Years Used Date Never Smoker Smokeless Tobacco: Never Used Tobacco Cessation: Counseling Given: Yes Alcohol Use Standard Drinks/Week Comments Yes 0 (1 standard drink = 0.6 oz pure alcoho l) occasional Alcohol Habits Answer Date Recorded How often do you have a drink containing alcohol? Monthly or less 11/24/2019 How many drinks containing alcohol do you have on a Not aske d typical day when you are drinking? How often do you have six or more drinks on one Not asked occasion? Comment: occasional 12/05/2019 Sex Assigned at Date Recorded Not on file COVID-19 Exposure Response Date Recorded In the last 10 days, have you been in contact with No / Unsu re 01/02/2022 1:50 PM CDT someone who was confirmed or suspected to have Coronavirus/COVID-19? Obstetrics History Last Filed Vital Signs Vital Sign Reading Time Taken Comments Blood Pressure 130/66 01/02/2022 3:39 PM CDT Pulse 68 01/02/2022 3:39 PM CDT Temperature 36.1 ??C (97 ??F) 01/02/2022 3:39 PM CDT Respiratory Rate 16 01/02/2022 2:56 PM CDT Oxygen Saturation 99% 01/02/2022 2:56 PM CDT Inhaled Oxygen Concentration - - Weight 73 kg (161 lb) 01/02/2022 3:39 PM CDT Height 154.9 cm (5' 1) 01/02/2022 2:56 PM CDT Body Mass Index 30.42 01/02/2022 2:56 PM CDT Plan of Treatment Upcoming Encounters Date Type Specialty Care Team Description 02/13/2022 Office Visit Harjit Roca MD [address] [place] [address] [id number] (Wo rk) Health Maintenance Due Date Last Done Comments Pneumococcal series for age 65+ (1 - PCV) 06/07/1949 Tdap 06/07/1954 Depression screening for age 12+ 1955 Hepatitis C screening for age 18-79 06/07/1961 Zoster (shingles) series for age 50+ (1 of 06/07/1962 2) Tetanus booster 1963 Medicare Wellness for age 65+ 06/07/2008 COVID-19 vaccine series (2 - Pfizer 02/10/2021 01/20/2021 series) Influenza for age 65+ 12/08/2021 BMI (ht and wt on same day) for age 18+ 01/02/2023 01/03/20 22, 12/30/2021 DEXA/DXA scan for age 65+ Completed 12/02/2018 Procedures Procedure Name Priority Date/Time Associated Diagnosis Comme nts BLOOD CULTURE Routine 01/02/2022 4:39 Subacute bacterial PM CDT endocarditis BLOOD CULTURE Routine 01/02/2022 4:27 Subacute bacterial PM CDT endocarditis XR SPINE LUMBAR 2 Routine 12/30/2021 11:17 Closed compression Results for this VIEWS AM CDT fracture of L5 procedure are in lumbar vertebra, the results initial encounter section. (HC) SCAN 12/20/2021 12:00 Results for this CORRESP-LABORATORY AM CDT procedure are in RESULTS the results section. CT HEAD BRAIN WO STAT 12/17/2021 3:35 Results for this PM CDT procedure are i n the results section. TROPONIN I STAT 12/17/2021 2:32 Results for this PM CDT procedure are i n the results section. CBC WITH AUTO STAT 12/17/2021 2:32 Results for this DIFFERENTIAL PM CDT procedure are i n the results section. BASIC METABOLIC PANEL STAT 12/17/2021 2:32 Res ults for this PM CDT procedure are i n the results section. CBC WITH AUTO STAT 12/17/2021 2:32 Results for this DIFFERENTIAL PM CDT procedure are i n the results section. EKG 12 LEAD STAT 12/17/2021 2:02 Results for this PM CDT procedure are i n the results section. ECHO ALIDA WO CONTRAST Routine 12/16/2021 10:46 Endocarditis, Re sults for this AM CDT unspecified procedure are i n chronicity, the results unspecified section. endocarditis type SCAN-LABORATORY REPORT 12/13/2021 12:00 R esults for this AM CDT procedure are i n the results section. SCAN-LABORATORY REPORT 12/06/2021 12:00 R esults for this AM CDT procedure are i n the results section. HEMOGLOBIN Early AM 11/30/2021 6:14 Results for this AM CDT procedure are i n the results section. SCAN-CARDIAC STRIP 11/29/2021 11:06 AM CDT SCAN-CARDIAC STRIP 11/29/2021 4:14 AM CDT SCAN-CARDIAC STRIP 11/28/2021 7:17 PM CDT SCAN-CARDIAC STRIP 11/28/2021 3:59 PM CDT SCAN-CARDIAC STRIP 11/28/2021 9:36 AM CDT SCAN-CARDIAC STRIP 11/28/2021 12:08 AM CDT GLUCOSE METER Timed 11/27/2021 5:14 Results for this PM CDT procedure are i n the results section. SCAN-CARDIAC STRIP 11/27/2021 3:59 PM CDT GLUCOSE METER Timed 11/27/2021 12:07 Results fo r this PM CDT procedure are i n the results section. GLUCOSE METER Timed 11/27/2021 9:21 Results for this AM CDT procedure are i n the results section. SCAN-CARDIAC STRIP 11/27/2021 7:00 AM CDT SCAN-CARDIAC STRIP 11/26/2021 11:59 PM CDT GLUCOSE METER Timed 11/26/2021 9:43 Results for this PM CDT procedure are i n the results section. HEMOGLOBIN Timed 11/26/2021 5:22 Results for this PM CDT procedure are i n the results section. GLUCOSE METER Timed 11/26/2021 4:52 Results for this PM CDT procedure are i n the results section. EKG 12 LEAD Routine 11/26/2021 1:35 Results for this PM CDT procedure are i n the results section. GLUCOSE METER Timed 11/26/2021 1:31 Results for this PM CDT procedure are i n the results section. HEMOGLOBIN Timed 11/26/2021 9:08 Results for this AM CDT procedure are i n the results section. GLUCOSE METER Timed 11/26/2021 7:12 Results for this AM CDT procedure are i n the results section. SCAN-CARDIAC STRIP 11/26/2021 6:59 AM CDT SCAN-CARDIAC STRIP 11/26/2021 6:08 AM CDT TRANSFUSE RBC (NURSE STAT 11/26/2021 2:56 COMMUNICATION ORDER) AM CDT RBC W/O TYPE & SCREEN STAT 11/26/2021 2:24 Res ults for this AM CDT procedure are i n the results section. RED BLOOD CELLS EA STAT 11/26/2021 2:23 Result s for this UNIT AM CDT procedure are i n the results section. HEMOGLOBIN Timed 11/26/2021 1:26 Results for this AM CDT procedure are i n the results section. GLUCOSE METER Timed 11/25/2021 8:59 Results for this PM CDT procedure are i n the results section. HEMOGLOBIN Timed 11/25/2021 5:31 Results for this PM CDT procedure are i n the results section. GLUCOSE METER Timed 11/25/2021 5:20 Results for this PM CDT procedure are i n the results section. SCAN-CARDIAC STRIP 11/25/2021 4:00 PM CDT IR PICC LINE Routine 11/25/2021 12:52 Results for this PM CDT procedure are i n the results section. GLUCOSE METER Timed 11/25/2021 12:13 Results fo r this PM CDT procedure are i n the results section. HEMOGLOBIN Timed 11/25/2021 10:06 Results for this AM CDT procedure are i n the results section. ELECTROLYTE PANEL Today 11/25/2021 10:06 Result s for this AM CDT procedure are i n the results section. GLUCOSE METER Timed 11/25/2021 8:16 Results for this AM CDT procedure are i n the results section. SCAN-CARDIAC STRIP 11/25/2021 7:07 AM CDT COVID 19 Timed 11/25/2021 6:27 Results for this AM CDT procedure are i n the results section. COVID 19 COLLECTION Today 11/25/2021 6:27 Resul ts for this AM CDT procedure are i n the results section. HEMOGLOBIN Timed 11/25/2021 4:40 Results for this AM CDT procedure are i n the results section. SCAN-OPERATIVE/PROCEDU 11/25/2021 12:00 R esults for this RE REPORT AM CDT procedure are i n the results section. GLUCOSE METER Timed 11/24/2021 11:21 Results fo r this PM CDT procedure are i n the results section. HEMOGLOBIN Timed 11/24/2021 8:38 Results for this PM CDT procedure are i n the results section. SCAN-CARDIAC STRIP 11/24/2021 8:14 PM CDT GLUCOSE METER Timed 11/24/2021 5:56 Results for this PM CDT procedure are i n the results section. GLUCOSE METER Timed 11/24/2021 5:54 Results for this PM CDT procedure are i n the results section. SCAN-CARDIAC STRIP 11/24/2021 5:42 PM CDT TRANSFUSE RBC (NURSE STAT 11/24/2021 12:07 COMMUNICATION ORDER) PM CDT GLUCOSE METER Timed 11/24/2021 11:32 Results fo r this AM CDT procedure are i n the results section. RBC W/O TYPE & SCREEN STAT 11/24/2021 11:05 Re sults for this AM CDT procedure are i n the results section. RED BLOOD CELLS EA STAT 11/24/2021 11:05 Resul ts for this UNIT AM CDT procedure are i n the results section. RED BLOOD CELLS EA STAT 11/24/2021 11:05 Resul ts for this UNIT AM CDT procedure are i n the results section. HEMOGLOBIN Timed 11/24/2021 7:07 Results for this AM CDT procedure are i n the results section. HEMOGLOBIN Timed 11/24/2021 3:05 Results for this AM CDT procedure are i n the results section. SCAN-CARDIAC STRIP 11/24/2021 12:00 AM CDT GLUCOSE METER Timed 11/23/2021 9:04 Results for this PM CDT procedure are i n the results section. TRANSFUSE RBC (NURSE STAT 11/23/2021 7:41 COMMUNICATION ORDER) PM CDT RBC W/O TYPE & SCREEN STAT 11/23/2021 6:14 Res ults for this PM CDT procedure are i n the results section. RED BLOOD CELLS EA STAT 11/23/2021 6:14 Result s for this UNIT PM CDT procedure are i n the results section. GLUCOSE METER Timed 11/23/2021 5:00 Results for this PM CDT procedure are i n the results section. SCAN-CARDIAC STRIP 11/23/2021 4:25 PM CDT SCAN-CARDIAC STRIP 11/23/2021 4:25 PM CDT HEMOGLOBIN Today 11/23/2021 3:56 Results for this PM CDT procedure are i n the results section. GLUCOSE METER Timed 11/23/2021 11:49 Results fo r this AM CDT procedure are i n the results section. TRANSFUSE RBC (NURSE STAT 11/23/2021 11:42 COMMUNICATION ORDER) AM CDT RBC W/O TYPE & SCREEN STAT 11/23/2021 9:45 Res ults for this AM CDT procedure are i n the results section. RED BLOOD CELLS EA STAT 11/23/2021 9:10 Result s for this UNIT AM CDT procedure are i n the results section. TYPE & SCREEN JULY 11/23/2021 9:01 Results for this AM CDT procedure are i n the results section. GLUCOSE METER Timed 11/23/2021 7:29 Results for this AM CDT procedure are i n the results section. PROTIME-INR Add On 11/23/2021 6:53 Results for this AM CDT procedure are i n the results section. EXTRA TUBE BLUE Today 11/23/2021 6:53 AM CDT HEMATOCRIT Early AM 11/23/2021 6:53 Results for this AM CDT procedure are i n the results section. HEMOGLOBIN Early AM 11/23/2021 6:53 Results for this AM CDT procedure are i n the results section. PLATELET COUNT Early AM 11/23/2021 6:53 Results fo r this AM CDT procedure are i n the results section. SCAN-CARDIAC STRIP 11/22/2021 9:48 PM CDT GLUCOSE METER Timed 11/22/2021 9:10 Results for this PM CDT procedure are i n the results section. GLUCOSE METER Timed 11/22/2021 4:12 Results for this PM CDT procedure are i n the results section. IR CENTRAL VENOUS Routine 11/22/2021 9:36 Results for this CATHETER TUNNEL => 5Y AM CDT proced ure are in INSERTION the results section. SCAN-CARDIAC STRIP 11/22/2021 8:30 AM CDT GLUCOSE METER Timed 11/22/2021 8:29 Results for this AM CDT procedure are i n the results section. RENAL FUNCTION PANEL Early AM 11/22/2021 5:59 Resu lts for this AM CDT procedure are i n the results section. HEMATOCRIT Early AM 11/22/2021 5:59 Results for this AM CDT procedure are i n the results section. HEMOGLOBIN Early AM 11/22/2021 5:59 Results for this AM CDT procedure are i n the results section. PLATELET COUNT Early AM 11/22/2021 5:59 Results fo r this AM CDT procedure are i n the results section. APTT Timed 11/22/2021 1:59 Results for this AM CDT procedure are i n the results section. GLUCOSE METER Timed 11/21/2021 10:00 Results fo r this PM CDT procedure are i n the results section. SCAN-CARDIAC STRIP 11/21/2021 8:34 PM CDT APTT Timed 11/21/2021 6:52 Results for this PM CDT procedure are i n the results section. SCAN-CARDIAC STRIP 11/21/2021 5:28 PM CDT GLUCOSE METER Timed 11/21/2021 5:09 Results for this PM CDT procedure are i n the results section. APTT Timed 11/21/2021 11:58 Results for this AM CDT procedure are i n the results section. GLUCOSE METER Timed 11/21/2021 11:42 Results fo r this AM CDT procedure are i n the results section. SCAN-CARDIAC STRIP 11/21/2021 9:18 AM CDT GLUCOSE METER Timed 11/21/2021 8:03 Results for this AM CDT procedure are i n the results section. WHITE BLOOD COUNT JULY 11/21/2021 6:13 Results for this AM CDT procedure are i n the results section. C-REACTIVE PROTEIN JULY 11/21/2021 6:13 Result s for this AM CDT procedure are i n the results section. BASIC METABOLIC PANEL Early AM 11/21/2021 6:13 Res ults for this AM CDT procedure are i n the results section. HEMATOCRIT Early AM 11/21/2021 6:13 Results for this AM CDT procedure are i n the results section. HEMOGLOBIN Early AM 11/21/2021 6:13 Results for this AM CDT procedure are i n the results section. PLATELET COUNT Early AM 11/21/2021 6:13 Results fo r this AM CDT procedure are i n the results section. APTT Timed 11/21/2021 3:55 Results for this AM CDT procedure are i n the results section. GLUCOSE METER Timed 11/20/2021 10:24 Results fo r this PM CDT procedure are i n the results section. APTT Timed 11/20/2021 8:45 Results for this PM CDT procedure are i n the results section. SCAN-CARDIAC STRIP 11/20/2021 7:30 PM CDT GLUCOSE METER Timed 11/20/2021 5:25 Results for this PM CDT procedure are i n the results section. APTT Timed 11/20/2021 1:56 Results for this PM CDT procedure are i n the results section. GLUCOSE METER Timed 11/20/2021 12:14 Results fo r this PM CDT procedure are i n the results section. SCAN-CARDIAC STRIP 11/20/2021 9:07 AM CDT GLUCOSE METER Timed 11/20/2021 7:38 Results for this AM CDT procedure are i n the results section. APTT Timed 11/20/2021 6:41 Results for this AM CDT procedure are i n the results section. BASIC METABOLIC PANEL Early AM 11/20/2021 6:41 Res ults for this AM CDT procedure are i n the results section. HEMATOCRIT Early AM 11/20/2021 6:41 Results for this AM CDT procedure are i n the results section. HEMOGLOBIN Early AM 11/20/2021 6:41 Results for this AM CDT procedure are i n the results section. PLATELET COUNT Early AM 11/20/2021 6:41 Results fo r this AM CDT procedure are i n the results section. APTT Timed 11/19/2021 11:49 Results for this PM CDT procedure are i n the results section. GLUCOSE METER Timed 11/19/2021 10:20 Results fo r this PM CDT procedure are i n the results section. SCAN-CARDIAC STRIP 11/19/2021 7:06 PM CDT GLUCOSE METER Timed 11/19/2021 6:14 Results for this PM CDT procedure are i n the results section. APTT Today 11/19/2021 4:13 Results for this PM CDT procedure are i n the results section. GLUCOSE METER Timed 11/19/2021 11:54 Results fo r this AM CDT procedure are i n the results section. APTT Timed 11/19/2021 7:41 Results for this AM CDT procedure are i n the results section. GLUCOSE METER Timed 11/19/2021 7:34 Results for this AM CDT procedure are i n the results section. SCAN-CARDIAC STRIP 11/19/2021 7:30 AM CDT POTASSIUM Early AM 11/19/2021 6:05 Results for this AM CDT procedure are i n the results section. HEMATOCRIT Early AM 11/19/2021 6:05 Results for this AM CDT procedure are i n the results section. HEMOGLOBIN Early AM 11/19/2021 6:05 Results for this AM CDT procedure are i n the results section. PLATELET COUNT Early AM 11/19/2021 6:05 Results fo r this AM CDT procedure are i n the results section. APTT Timed 11/19/2021 12:40 Results for this AM CDT procedure are i n the results section. GLUCOSE METER Timed 11/18/2021 8:42 Results for this PM CDT procedure are i n the results section. SCAN-CARDIAC STRIP 11/18/2021 7:40 PM CDT APTT Timed 11/18/2021 5:44 Results for this PM CDT procedure are i n the results section. GLUCOSE METER Timed 11/18/2021 5:11 Results for this PM CDT procedure are i n the results section. GLUCOSE METER Timed 11/18/2021 12:04 Results fo r this PM CDT procedure are i n the results section. APTT Today 11/18/2021 11:00 Results for this AM CDT procedure are i n the results section. SCAN-CARDIAC STRIP 11/18/2021 8:21 AM CDT GLUCOSE METER Timed 11/18/2021 7:58 Results for this AM CDT procedure are i n the results section. BASIC METABOLIC PANEL Early AM 11/18/2021 3:43 Res ults for this AM CDT procedure are i n the results section. HEMATOCRIT Early AM 11/18/2021 3:43 Results for this AM CDT procedure are i n the results section. HEMOGLOBIN Early AM 11/18/2021 3:43 Results for this AM CDT procedure are i n the results section. PLATELET COUNT Early AM 11/18/2021 3:43 Results fo r this AM CDT procedure are i n the results section. APTT Timed 11/18/2021 3:43 Results for this AM CDT procedure are i n the results section. SCAN-CARDIAC STRIP 11/18/2021 1:06 AM CDT GLUCOSE METER Timed 11/17/2021 10:24 Results fo r this PM CDT procedure are i n the results section. APTT Timed 11/17/2021 6:34 Results for this PM CDT procedure are i n the results section. GLUCOSE METER Timed 11/17/2021 6:28 Results for this PM CDT procedure are i n the results section. EKG 12 LEAD Routine 11/17/2021 6:22 Results for this PM CDT procedure are i n the results section. SCAN-CARDIAC STRIP 11/17/2021 6:18 PM CDT IR CENTRAL VENOUS Routine 11/17/2021 5:04 Results for this CATHETER NON TUNNEL PM CDT procedur e are in =>5Y INSERTION the results section. ECHO ALIDA W BUBBLE WO Routine 11/17/2021 2:49 Resu lts for this CONTRAST PM CDT procedure are i n the results section. GLUCOSE METER Timed 11/17/2021 12:26 Results fo r this PM CDT procedure are i n the results section. APTT Timed 11/17/2021 11:58 Results for this AM CDT procedure are i n the results section. COVID 19 Timed 11/17/2021 11:19 Results for this AM CDT procedure are i n the results section. COVID 19 COLLECTION Today 11/17/2021 11:19 Resu lts for this AM CDT procedure are i n the results section. GLUCOSE METER Timed 11/17/2021 8:18 Results for this AM CDT procedure are i n the results section. SCAN-CARDIAC STRIP 11/17/2021 7:59 AM CDT HBSAG (HBS) JULY 11/17/2021 5:36 Results for this AM CDT procedure are i n the results section. APTT Timed 11/17/2021 5:36 Results for this AM CDT procedure are i n the results section. BASIC METABOLIC PANEL Early AM 11/17/2021 5:36 Res ults for this AM CDT procedure are i n the results section. HEMATOCRIT Early AM 11/17/2021 5:36 Results for this AM CDT procedure are i n the results section. HEMOGLOBIN Early AM 11/17/2021 5:36 Results for this AM CDT procedure are i n the results section. PLATELET COUNT Early AM 11/17/2021 5:36 Results fo r this AM CDT procedure are i n the results section. GLUCOSE METER Timed 11/17/2021 4:13 Results for this AM CDT procedure are i n the results section. SCAN-CARDIAC STRIP 11/17/2021 12:40 AM CDT GLUCOSE METER Timed 11/17/2021 12:01 Results fo r this AM CDT procedure are i n the results section. APTT Timed 11/16/2021 10:21 Results for this PM CDT procedure are i n the results section. GLUCOSE METER Timed 11/16/2021 8:51 Results for this PM CDT procedure are i n the results section. SCAN-CARDIAC STRIP 11/16/2021 4:35 PM CDT APTT Timed 11/16/2021 4:06 Results for this PM CDT procedure are i n the results section. GLUCOSE METER Timed 11/16/2021 3:37 Results for this PM CDT procedure are i n the results section. BLOOD CULTURE Today 11/16/2021 2:43 Results for this PM CDT procedure are i n the results section. BLOOD CULTURE Today 11/16/2021 2:31 Results for this PM CDT procedure are i n the results section. GLUCOSE METER Timed 11/16/2021 11:41 Results fo r this AM CDT procedure are i n the results section. SCAN-CARDIAC STRIP 11/16/2021 7:46 AM CDT GLUCOSE METER Timed 11/16/2021 7:33 Results for this AM CDT procedure are i n the results section. APTT Timed 11/16/2021 6:46 Results for this AM CDT procedure are i n the results section. BASIC METABOLIC PANEL Early AM 11/16/2021 6:46 Res ults for this AM CDT procedure are i n the results section. MAGNESIUM Early AM 11/16/2021 6:46 Results for this AM CDT procedure are i n the results section. HEMATOCRIT Early AM 11/16/2021 6:46 Results for this AM CDT procedure are i n the results section. HEMOGLOBIN Early AM 11/16/2021 6:46 Results for this AM CDT procedure are i n the results section. PLATELET COUNT Early AM 11/16/2021 6:46 Results fo r this AM CDT procedure are i n the results section. GLUCOSE METER Timed 11/16/2021 4:47 Results for this AM CDT procedure are i n the results section. APTT Timed 11/16/2021 12:19 Results for this AM CDT procedure are i n the results section. GLUCOSE METER Timed 11/16/2021 12:12 Results fo r this AM CDT procedure are i n the results section. SCAN-CARDIAC STRIP 11/15/2021 11:14 PM CDT GLUCOSE METER Timed 11/15/2021 9:02 Results for this PM CDT procedure are i n the results section. APTT Timed 11/15/2021 5:30 Results for this PM CDT procedure are i n the results section. GLUCOSE METER Timed 11/15/2021 5:00 Results for this PM CDT procedure are i n the results section. XR CHEST 1 VIEW PICC STAT 11/15/2021 4:26 Resu lts for this OR CVAD PLACEMENT PM CDT procedure are in PORTABLE the results section. SCAN-CARDIAC STRIP 11/15/2021 3:48 PM CDT GLUCOSE METER Timed 11/15/2021 2:07 Results for this PM CDT procedure are i n the results section. GLUCOSE METER Timed 11/15/2021 11:39 Results fo r this AM CDT procedure are i n the results section. IR FLUORO GUIDED Routine 11/15/2021 9:37 Results for this SPINAL INJECTION AM CDT procedure a re in the results section. ANAEROBIC CULTURE Today 11/15/2021 9:35 Results for this AM CDT procedure are i n the results section. AEROBIC BACTERIAL Routine 11/15/2021 9:35 Results for this CULTURE, STAIN AM CDT procedure are in the results section. GLUCOSE METER Timed 11/15/2021 8:22 Results for this AM CDT procedure are i n the results section. SCAN-CARDIAC STRIP 11/15/2021 8:01 AM CDT APTT Timed 11/15/2021 7:27 Results for this AM CDT procedure are i n the results section. BASIC METABOLIC PANEL Early AM 11/15/2021 7:27 Res ults for this AM CDT procedure are i n the results section. HEMATOCRIT Early AM 11/15/2021 7:27 Results for this AM CDT procedure are i n the results section. HEMOGLOBIN Early AM 11/15/2021 7:27 Results for this AM CDT procedure are i n the results section. PLATELET COUNT Early AM 11/15/2021 7:27 Results fo r this AM CDT procedure are i n the results section. GLUCOSE METER Timed 11/15/2021 4:09 Results for this AM CDT procedure are i n the results section. GLUCOSE METER Timed 11/15/2021 12:02 Results fo r this AM CDT procedure are i n the results section. SCAN-ELECTROCARDIOGRAM 11/15/2021 12:00 R esults for this EKG AM CDT procedure are i n the results section. APTT Today 11/14/2021 11:51 Results for this PM CDT procedure are i n the results section. GLUCOSE METER Timed 11/14/2021 8:58 Results for this PM CDT procedure are i n the results section. APTT Today 11/14/2021 5:02 Results for this PM CDT procedure are i n the results section. GLUCOSE METER Timed 11/14/2021 3:21 Results for this PM CDT procedure are i n the results section. GLUCOSE METER Timed 11/14/2021 11:51 Results fo r this AM CDT procedure are i n the results section. BLOOD CULTURE Today 11/14/2021 11:34 Results fo r this AM CDT procedure are i n the results section. BLOOD CULTURE Today 11/14/2021 11:22 Results fo r this AM CDT procedure are i n the results section. EKG 12 LEAD Early AM 11/14/2021 9:41 Results for this AM CDT procedure are i n the results section. ECHO COMPLETE W Routine 11/14/2021 9:12 Results f or this CONTRAST AM CDT procedure are i n the results section. SCAN-CARDIAC STRIP 11/14/2021 8:33 AM CDT GLUCOSE METER Timed 11/14/2021 8:05 Results for this AM CDT procedure are i n the results section. IR REMOVE VENOUS Routine 11/14/2021 7:54 Results for this PORT/CATH AM CDT procedure are i n the results section. TSH JULY 11/14/2021 6:48 Results for this AM CDT procedure are i n the results section. MAGNESIUM JULY 11/14/2021 6:48 Results for this AM CDT procedure are i n the results section. APTT Timed 11/14/2021 6:48 Results for this AM CDT procedure are i n the results section. HEMATOCRIT Early AM 11/14/2021 6:48 Results for this AM CDT procedure are i n the results section. HEMOGLOBIN Early AM 11/14/2021 6:48 Results for this AM CDT procedure are i n the results section. PLATELET COUNT Early AM 11/14/2021 6:48 Results fo r this AM CDT procedure are i n the results section. RENAL FUNCTION PANEL Early AM 11/14/2021 6:48 Resu lts for this AM CDT procedure are i n the results section. GLUCOSE METER Timed 11/14/2021 3:59 Results for this AM CDT procedure are i n the results section. SCAN-CARDIAC STRIP 11/14/2021 3:25 AM CDT SCAN-CARDIAC STRIP 11/14/2021 3:24 AM CDT GLUCOSE METER Timed 11/13/2021 11:53 Results fo r this PM CDT procedure are i n the results section. APTT Today 11/13/2021 11:46 Results for this PM CDT procedure are i n the results section. MR SPINE LUMBAR WO JULY 11/13/2021 11:27 Resul ts for this PM CDT procedure are i n the results section. MR SPINE THORACIC WO JULY 11/13/2021 10:35 Res ults for this PM CDT procedure are i n the results section. SCAN-CARDIAC STRIP 11/13/2021 8:23 PM CDT US VENOUS LOWER Routine 11/13/2021 6:15 Results f or this EXTREMITY BILATERAL PM CDT procedur e are in PORTABLE the results section. GLUCOSE METER Timed 11/13/2021 5:04 Results for this PM CDT procedure are i n the results section. APTT JULY 11/13/2021 3:51 Results for this PM CDT procedure are i n the results section. PROTIME-INR JULY 11/13/2021 3:51 Results for this PM CDT procedure are i n the results section. GLUCOSE METER Timed 11/13/2021 2:04 Results for this PM CDT procedure are i n the results section. EKG 12 LEAD STAT 11/13/2021 12:14 Results for this PM CDT procedure are i n the results section. PLATELET ESTIMATE STAT 11/13/2021 11:21 Result s for this AM CDT procedure are i n the results section. RED CELL MORPHOLOGY STAT 11/13/2021 11:21 Resu lts for this AM CDT procedure are i n the results section. BASIC METABOLIC PANEL STAT 11/13/2021 11:21 Re sults for this AM CDT procedure are i n the results section. CBC W PLT NO DIFF STAT 11/13/2021 11:21 Result s for this AM CDT procedure are i n the results section. EKG 12 LEAD STAT 11/13/2021 11:00 Results for this AM CDT procedure are i n the results section. SCAN-CARDIAC STRIP 11/13/2021 10:41 AM CDT GLUCOSE METER Timed 11/13/2021 10:23 Results fo r this AM CDT procedure are i n the results section. SCAN-CARDIAC STRIP 11/13/2021 9:30 AM CDT SCAN-CARDIAC STRIP 11/13/2021 9:30 AM CDT GLUCOSE METER Timed 11/13/2021 6:08 Results for this AM CDT procedure are i n the results section. GLUCOSE METER Timed 11/13/2021 2:17 Results for this AM CDT procedure are i n the results section. POTASSIUM JULY 11/13/2021 2:08 Results for this AM CDT procedure are i n the results section. TROPONIN I Timed 11/13/2021 2:08 Results for this AM CDT procedure are i n the results section. CREATININE Early AM 11/13/2021 2:08 Results for this AM CDT procedure are i n the results section. SCAN-CARDIAC STRIP 11/13/2021 12:00 AM CDT TROPONIN I Timed 11/12/2021 11:54 Results for this PM CDT procedure are i n the results section. CT CHEST PULMONARY STAT 11/12/2021 10:10 Resul ts for this EMBOLUS PE ABDOMEN PM CDT procedure are in PELVIS W the results section. CT HEAD BRAIN WO STAT 11/12/2021 10:10 Results for this PM CDT procedure are i n the results section. GLUCOSE METER Timed 11/12/2021 8:56 Results for this PM CDT procedure are i n the results section. SCAN-CARDIAC STRIP 11/12/2021 7:12 PM CDT BLOOD CULTURE STAT 11/12/2021 6:32 Results for this PM CDT procedure are i n the results section. BLOOD CULTURE STAT 11/12/2021 6:11 Results for this MULTIPLEX PCR PM CDT procedure are in the results section. D-DIMER,QUANTITATIVE JULY 11/12/2021 6:11 Resu lts for this PM CDT procedure are i n the results section. C-REACTIVE PROTEIN JULY 11/12/2021 6:11 Result s for this PM CDT procedure are i n the results section. TROPONIN I STAT 11/12/2021 6:11 Results for this PM CDT procedure are i n the results section. PROCALCITONIN STAT 11/12/2021 6:11 Results for this PM CDT procedure are i n the results section. HEPATIC FUNCTION PANEL STAT 11/12/2021 6:11 Re sults for this PM CDT procedure are i n the results section. PROTIME-INR STAT 11/12/2021 6:11 Results for this PM CDT procedure are i n the results section. BASIC METABOLIC PANEL STAT 11/12/2021 6:11 Res ults for this PM CDT procedure are i n the results section. BLOOD CULTURE STAT 11/12/2021 6:11 Results for this PM CDT procedure are i n the results section. LACTATE VENOUS STAT 11/12/2021 6:11 Results fo r this PM CDT procedure are i n the results section. COVID 19 STAT 11/12/2021 6:06 Results for this PM CDT procedure are i n the results section. COVID 19 COLLECTION STAT 11/12/2021 6:06 Resul ts for this PM CDT procedure are i n the results section. CBC WITH AUTO STAT 11/12/2021 5:53 Results for this DIFFERENTIAL PM CDT procedure are i n the results section. CBC WITH AUTO STAT 11/12/2021 5:53 Results for this DIFFERENTIAL PM CDT procedure are i n the results section. XR CHEST 1 VIEW STAT 11/12/2021 5:30 Results f or this PORTABLE PM CDT procedure are i n the results section. EKG 12 LEAD STAT 11/12/2021 5:28 Results for this PM CDT procedure are i n the results section. GLUCOSE METER Timed 11/12/2021 4:48 Results for this PM CDT procedure are i n the results section. SCAN-ELECTROCARDIOGRAM 11/12/2021 12:00 R esults for this EKG AM CDT procedure are i n the results section. SCAN-OPERATIVE/PROCEDU 11/12/2021 12:00 R esults for this RE REPORT AM CDT procedure are i n the results section. SCAN-OPERATIVE/PROCEDU 11/12/2021 12:00 R esults for this RE REPORT AM CDT procedure are i n the results section. SCAN-OPERATIVE/PROCEDU 11/12/2021 12:00 R esults for this RE REPORT AM CDT procedure are i n the results section. from Last 3 Months Results XR SPINE LUMBAR 2 VIEWS (12/30/2021 11:17 AM CDT) Anatomical Region Laterality Modality LUMBAR SPINE Computed Radiography Specimen (Source) Anatomical Collection Method Collection Time Re ceived Time Location / / Volume Laterality 12/30/2021 11:17 AM CDT Narrative 12/31/2021 1:42 AM CDT For Patients: As a result of the Cures Act, medical imaging exams and procedure reports are released immediately into your [facility] medical record. You may view this report before your referring provider. If you have questions, please contact your health care provider. EXAM: XR SPINE LUMBAR 2 VIEWS LOCATION: [facility] MEDICAL IMAGING DATE/TIME: 12/30/2021 11:17 AM INDICATION: Closed Compression Fracture Of L5 Lumbar Vertebra, Initial Encounter (hc). COMPARISON: 11/13/2021 TECHNIQUE: Radiographs of lumbar spine i n routine projections. FINDINGS: Radiograph. Nomenclature based on 5 lumbar type vertebral bodies. Mild dextrocurvature centered at L3, unchanged. Grade 1 anterolisthesis at L4-5. Slight 5-10% loss of height centrally of L5, is stable. Moderate multilevel interbody degeneration. Advanced multi level facet arthropathy. Left hip athroplasty. Abdominal soft tissues are unremarkable. Procedure Note Jewel Barber MBBS - 12/31/2021Formatt ing of this note might be different from the original. For Patients: As a result of the ntury Cures Act, medical imaging exams and procedure reports are released immediately into your electronic medical record. You may view this report before your referring provider. If you have questions, please contact [facility] health care provider. EXAM: XR SPINE LUMBAR 2 VIEWS LOCATION: [facility] MEDICAL IMAGING DATE/TIME: 12/30/2021 11:17 AM INDICATION: Closed Compression Fracture Of L5 Lumbar Vertebra, Initial Encounter (hc). COMPARISON: 11/13/2021 TECHNIQUE: Radiographs of lumbar spine i n routine projections. FINDINGS: Radiograph. Nomenclature based on 5 lumbar type vertebral bodies. Mild dextrocurvature centered at L3, unchanged. Grade 1 anterolisthesis at L4-5. Slight 5-10% loss of height centrally of L5, is stable. Moderate multilevel interbody de generation. Advanced multi level facet arthropathy. Left hip athroplasty. Abdominal soft tissues are unremarkable. [facility] SC[facility] CORRESP-LABORATORY RESULTS (12/20/2021 12:00 AM CDT) Narrative 12/20/2021 12:00 AM CDT This result has an attachment that is no t available. Ordered by an unspecified provider. Other Clinical Staff OTHER CT HEAD BRAIN WO (12/17/2021 3:35 PM CDT)Only the most recent of2 resultswithin the time period is included. Anatomical Region Laterality Modality HEAD, BRAIN Computed Tomography Specimen (Source) Anatomical Collection Method Collection Time Re ceived Time Location / / Volume Laterality 12/17/2021 3:35 PM CDT Impressions 12/17/2021 4:19 PM CDT 1. ??No acute intracranial abnormality. 2. ??Stable mild to moderate chronic age -related changes. Narrative 12/17/2021 4:19 PM CDT For Patients: As a result of the Cures Act, medical imaging exams and procedure reports are released immediately into your [facility] medical record. You may view this report before your referring provider. If you have questions, please contact your health care provider. EXAM: CT HEAD BRAIN WO LOCATION: [facility] MEDICAL IMAGING DATE/TIME: 12/17/2021 3:35 PM INDICATION: Syncope, recurrent COMPARISON: 11/12/2021 TECHNIQUE: Routine CT Head without IV co ntrast. Multiplanar reformats. Dose reduction techniques were used. FINDINGS: INTRACRANIAL CONTENTS: No intracranial h emorrhage, extraaxial collection, or mass effect. ??No CT evidence of acute infarct. Mild presumed chronic small vessel ischemic changes. Mild to moderate general ized volume loss. No hydrocephalus. Athe rosclerotic calcifications of the cavernous internal carotid arteries. VISUALIZED ORBITS/SINUSES/MASTOIDS: Prio r bilateral cataract surgery. Visualized portions of the orbits are otherwise unremarkable. Mild mucosal thickening in the ethmoid air cells. No middle ear or mastoid effusion. BONES/SOFT TISSUES: No acute calvarial f racture or scalp hematoma. Procedure Note Alli Villegas MD - 12/17/2021Form atting of this note might be different from the original. For Patients: As a result of the Cures Act, medical imaging exams and procedure reports are released immediately into your electronic medical record. You may view this report before your referring provider. If you have questions, please contact yo health care provider. EXAM: CT HEAD BRAIN WO LOCATION: [facility] MEDICAL IMAGING DATE/TIME: 12/17/2021 3:35 PM INDICATION: Syncope, recurrent COMPARISON: 11/12/2021 TECHNIQUE: Routine CT Head without IV co ntrast. Multiplanar reformats. Dose reduction techniques were used. FINDINGS: INTRACRANIAL CONTENTS: No intracranial h emorrhage, extraaxial collection, or mass effect. No CT evidence of acute infarct. Mild presumed chronic small vessel ischemic changes. Mild to moderate generalized volume loss. No hydrocephalus. Atherosclerotic calcif ications of the cavernous internal carotid arteries. VISUALIZED ORBITS/SINUSES/MASTOIDS: Prio r bilateral cataract surgery. Visualized portions of the orbits are otherwise unremarkable. Mild mucosal thickening in the ethmoid air cells. No middle ear or mastoid effusion. BONES/SOFT TISSUES: No acute calvarial f racture or scalp hematoma. IMPRESSION: 1. No acute intracranial abnormality. 2. Stable mild to moderate chronic age-r elated changes. Queta Baum MD CT (ABNORMAL) CBC WITH AUTO DIFFERENTIAL (12/17/2021 2:32 PM CDT)Only the most recent of2 resultswithin the time period is included. [facility] Method Time Signature WHITE BLOOD 8.2 4.5 - 12/17/2021 [facility] COUNT 11.0 2:42 PM CDT HOSPITAL thou/cu LABORATORY mm RED BLOOD COUNT 3.82 (L) 4.00 - 12/17/2021 [facility] 5.20 2:42 PM CDT [facility] LAB[facility] HEMOGLOBIN 11.3 (L) 12.0 - 12/17/2021 [facility] 16.0 g/dL 2:42 PM CDT HOSPITAL LABORATORY HEMATOCRIT 34.4 33.0 - 12/17/2021 [facility] 51.0 % 2:42 PM CDT HOSPITAL LABORATORY MCV 90 80 - 100 12/17/2021 [facility] fL 2:42 PM CDT [facility]OSPITAL LABORATORY MCH 29.6 26.0 - 12/17/2021 [facility] 34.0 pg 2:42 PM CDT HOSPITAL LABORATORY MCHC 32.8 32.0 - 12/17/2021 [facility] 36.0 g/dL 2:42 PM CDT HOSPITAL LABORATORY RDW 17.7 (H) 11.5 - 12/17/2021 [facility] 15.5 % 2:42 PM CDT HOSPITAL LABORATORY PLATELET COUNT 286 140 - 440 12/17/2021 [facility] thou/cu 2:42 PM CDT HOSPITAL mm LABORATORY MPV 9.7 6.5 - 12/17/2021 [facility] 11.0 fL 2:42 PM CDT [facility]OSPITAL LABORATORY NRBC 0.0 % 12/17/2021 [facility] 2:42 PM CDT [facility]ITAL LABORATORY ABS NRBC 0.0 thou /cu 12/17/2021 [facility] mm 2:42 PM CDT [facility]OSPITAL LABORATORY % NEUT 70.8 % 12/17/2021 [facility] 2:42 PM CDT [facility]ITAL LABORATORY % LYMPH 19.0 % 12/17/2021 [facility] 2:42 PM CDT [facility] LABORATORY % MONO 8.3 % 12/17/2021 [facility] 2:42 PM CDT [facility]ITAL LABORATORY % EOS 1.0 % 12/17/2021 [facility] 2:42 PM CDT [facility]ITAL LABORATORY % BASO 0.4 % 12/17/2021 [facility] 2:42 PM CDT [facility]ITAL LABORATORY % IMMATURE GRAN 0.5 % 12/17/2021 [facility] (METAS,MYELOS,AK 2:42 PM CDT HOSPITAL OS) LABORATORY ABSOLUTE 5.8 1.7 - 7.0 12/17/2021 [facility] NEUTROPHILS thou/cu 2:42 PM CDT HOSPITAL mm LABORATORY ABSOLUTE 1.6 0.9 - 2.9 12/17/2021 [facility] LYMPHOCYTES thou/cu 2:42 PM CDT HOSPITAL mm LABORATORY ABSOLUTE 0.7 <0.9 12/17/2021 [facility] MONOCYTES thou/cu 2:42 PM CDT HOSPITAL mm LABORATORY ABSOLUTE 0.1 <0.5 12/17/2021 [facility] EOSINOPHILS thou/cu 2:42 PM CDT HOSPITAL mm LABORATORY ABSOLUTE 0.0 <0.3 12/17/2021 [facility] BASOPHILS thou/cu 2:42 PM CDT HOSPITAL mm LABORATORY ABSOLUTE 0.0 <0.3 12/17/2021 [facility] IMMATURE thou/cu 2:42 PM CDT HOSPITAL GRANULOCYTES(MET mm LABORATORY ,MYELOS,PROS) Specimen Anatomical Collection Method / Collection Time Recei bruce Time (Source) Location / Volume Laterality Blood BLOOD SPECIMEN / Non-Lab 12/17/2021 2:32 12/18/19 22 2:38 Unknown Venipuncture / PM CDT PM CDT Unknown Queta Baum MD HEMATOLOGY Performing Organization Address City/State/ZIP Code Phon e Number [facility] LABORATORY SENDOUT INTERNAL ZIP [place] [phone] [place] [address] TROPONIN I (12/17/2021 2:32 PM CDT)Only the most recent of4 resultswithin the time period is included. P athologist Signature TROPONIN I 0.026 <0.034 12/17/2021 [facility] ng/mL 3:03 PM CDT LABORATORY Specimen Anatomical Collection Method / Collection Time Recei bruce Time (Source) Location / Volume Laterality Blood BLOOD SPECIMEN / Non-Lab 12/17/2021 2:32 12/18/19 22 2:38 Unknown Venipuncture / PM CDT PM CDT Unknown Lizzeth Christensen DO CHEMISTRY Performing Organization Address City/State/ZIP Code Phon e Number [facility] LABORATORY [place]ENDOUT [place] [phone] [place] [address] (ABNORMAL) BASIC METABOLIC PANEL (12/17/2021 2:32 PM CDT)Only the most recent of 9 resultswithin the time period is included. [facility] gist Method Time Signature SODIUM 131 (L) 135 - 145 12/17/2021 [facility] mmol/L 2:55 PM T HOSPITAL LABORATORY POTASSIUM 3.7 3.5 - 5.0 12/17/2021 [facility] mmol/L 2:55 PM [facility] LABORATORY CHLORIDE 104 98 - 110 12/17/2021 [facility] mmol/L 2:55 PM [facility] LABORATORY CO2,TOTAL 18 (L) 21 - 31 12/17/2021 [facility] mmol/L 2:55 PM [facility] LABORATORY ANION GAP 9 5 - 18 12/17/2021 [facility] 2:55 PM T HOSPITAL LABORATORY GLUCOSE 91 65 - 100 12/17/2021 [facility] mg/dL 2:55 PM [facility] LABORATORY CALCIUM 8.4 (L) 8.5 - 10.5 12/17/2021 [facility] mg/dL 2:55 PM [facility] LABORATORY BUN 16 8 - 25 12/17/2021 [facility] mg/dL 2:55 PM [facility] LABORATORY CREATININE 2.94 (H) 0.57 - 12/17/2021 [facility] 1.11 mg/dL 2:55 PM [facility] LABORATORY BUN/CREAT RATIO 5 (L) 10 - 20 12/17/2021 [facility] 2:55 PM [facility] LABORATORY eGFR 16 (L) >90 12/17/2021 [facility] mL/min/1.7 2:55 PM [facility] 3m2 LABORATORY Comment: As of 2021, eGFR is calcu lated by the CKD-EPI creatinine equation without race adjustment. eGFR can be inf luenced by muscle mass, exercise, and diet. The reported eGFR is an estimation only and is only applicable if the renal function is stable. Specimen Anatomical Collection Method / Collection Time Recei bruce Time (Source) Location / Volume Laterality Blood BLOOD SPECIMEN / Non-Lab 12/17/2021 2:32 12/18/19 22 2:38 Unknown Venipuncture / PM CDT PM CDT Unknown Queta Baum MD CHEMISTRY Performing Organization Address City/State/ZIP Code Phon e Number [facility] LABORATORY SENDOUT INTERNAL ZIP [place], [place] [phone] [facility] EKG 12 LEAD (12/17/2021 2:02 PM CDT)Only the most recent of7 resultswithin the time period is included. Component Value Ref Range Test Analysis Performed Pathologis t Method Time At Signature Interpretation Sinus rhythm with Premature atrial complexes BEYOND NOW Inferior infarct , age undetermined Abnormal ECG Ventricular Rate 62 BPM BEYOND NOW Atrial Rate 62 BPM BEYOND NOW P-R Interval 164 ms BEYOND NOW QRS Duration 86 ms BEYOND NOW QT 428 ms BEYOND NOW QTc 434 ms BEYOND NOW P [place] 27 degrees BEYOND NOW R [place] -28 degrees BEYOND NOW T [place] 67 degrees BEYOND NOW Specimen Anatomical Collection Method Collection Time Receive d Time (Source) Location / / Volume Laterality 12/17/2021 2:02 PM 2 2:26 CDT PM CDT Queta Baum MD EKG ORD Performing Organization Address City/State/ZIP Code Phon e Number BEYOND NOW [place], [place] ECHO ALIDA WO CONTRAST (12/16/2021 10:46 AM CDT) P athologist Signature EJECTION 60-65% PROSOLV FRACTION Anatomical Region Laterality Modality HEART Ultrasound, Ultrasou nd, Other Specimen (Source) Anatomical Collection Method Collection Time Re ceived Time Location / / Volume Laterality 12/16/2021 9:39 AM CDT Narrative 12/16/2021 11:36 AM CDT [address] [address] Main: [email or web address] ?Transesophageal Echo Report CYNTHIA HOLBROOKian ID: [id number] Age: 76 : 0 1945 Ordering Provider: REYES SCHOFIELD Exam Date: 12/16/2021 09:39 Gender: F S onographer: [facility] Height: 60 in BS A: 1.79 m?? BP: 188 / 88 Weight: 182 lbs BMI: 35.5 kg/m?? HR: 71 Location: Outpatient Rhythm: Normal Sin us Rhythm Procedure Components: 2D imaging, Color Doppler, Limited Spectral Doppler Indications: Endocarditis, unspecified chronicity, unspecified endocarditis type Technical Quality: Adequate Contrast: N one Final Conclusion Previous Study: 2021 1. Normal left ventricular chamber size and systolic function. Estimated left ventricular ejection fraction is 60-65%. 2. Grossly normal/mildly thickened tric uspid valve. No obvious vegetation on the tricuspid valve. Mild tricuspid valve ? regurgitation. 3. ??PICC/dialysis catheter is present within the right atrium. Multiple small mobile echodensities noted on catheter may repr esent ?bacterial vegetation vs. thromb in stranding. Compared to previous examination the la rge mass attached to the tricuspid valve is no longer present. ??Small mobile echodensities ar e now noted on the indwelling catheter wi thin the right atrium. ??Findings were relayed to the infectious disease team who has been following the patient on an outpatient basis. Estimated EF: 60-65% Level of Sedation: Moderate Physician s edation service time (mins): 22 Procedure Indications, goals, risks, be nefits, and alternatives pertaining to the procedure were discussed with the patient and informed consent was obtained. Prio r to the performance of procedure, time out was called to accurately identify the patient and procedure. Complications There were no apparent co mplications. Medications The patient's posterior pha rynx was anesthetized with 4% Lidocaine spray. Prior to the procedure the patient was alert and oriented. Versed 2 mg and Fentanyl 12.5 mcg were administered by the nurse with continuous monitoring of vital signs under my dire ct supervision. Total moderate sedation face to face monitoring time: 22 minutes. FINDINGS Left Ventricle Normal left ventricular chamber size. Normal left ventricular systolic function. Estimated left ventricular eje ction fraction is 60-65%. Right Ventricle Normal right ventricula r chamber size. Normal right ventricular systolic function. Left Atrium Severe left atrial enlargem ent. Left Atrial Normal left atrial appendag e without evidence of thrombus. Appendage Right Atrium Right atrial enlargement. Atrial Septum Patent foramen ovale with glaat-tu-[id number] shunt by color Doppler. Aortic Valve Trileaflet aortic valve. A ortic valve sclerosis without stenosis. Trivial aortic valve regurgitation. Mitral Valve Moderate focal/bulky poste rior mitral annular nodular calcification is unchanged from previous. No mitral valve stenosis. Mild mitral valve regurgitati on. Tricuspid Valve Grossly normal/mildly t hickened tricuspid valve. No obvious vegetation on the tricuspid valve.mild tricuspid valve regurgitation. Pulmonic Valve Pulmonary valve was not well visualized. No pulmonary valve stenosis. No pulmonary valve regurgitation. Ascending Aorta Aortic sinus of Valsalv a was not assessed. 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 Descending Aorta Pericardium No pericardial effusion. Other PICC/dialysis catheter is present within the right atrium. Multiple small mobile echodensities noted on catheter may represent bacterial vegetation vs. thrombin stranding. Carlos Helton MD [facility] Accredited Site (Electronically Signed) Final Date: 16 December 2021 11:35 ICD-10 Codes: I38 Procedure Note Carlos Helton MD - [address] [place] [address] Main: [email or web address] Transesophageal Echo Report CYNTHIA HOLBROOK Excellian ID: [id number] Age: 76 : 0 1945 Ordering Provider: REYES SCHOFIELD Exam Date: 12/16/2021 09:39 Gender: F S [facility] Height: 60 in BS A: 1.79 m?? BP: 188 / 88 Weight: 182 lbs BMI: 35.5 kg/m?? HR: 71 Location: Outpatient Rhythm: Normal Sin us Rhythm Procedure Components: 2D imaging, Color Doppler, Limited Spectral Doppler Indications: Endocarditis, unspecified chronicity, unspecified endocarditis type Technical Quality: Adequate Contrast: N one Final Conclusion Previous Study: 2021 1. Normal left ventricular chamber size and systolic function. Estimated left ventricular ejection fraction is 60-65%. 2. Grossly normal/mildly thickened tric uspid valve. No obvious vegetation on the tricuspid valve. Mild tricuspid valve regurgitation. 3. PICC/dialysis catheter is present wi thin the right atrium. Multiple small mobile echodensities noted on catheter may represent bacterial vegetation vs. thrombin stran ding. Compared to previous examination the la rge mass attached to the tricuspid valve is no longer present. Small mobile echodensities are now noted on the indwelling catheter wi thin the right atrium. Findings were relayed to the infectious disease team who has been following the patient on an outpatient basis. Estimated EF: 60-65% Level of Sedation: Moderate Physician s edation service time (mins): 22 Procedure Indications, goals, risks, be nefits, and alternatives pertaining to the procedure were discussed with the patient and informed consent was obtained. Prio r to the performance of procedure, time out was called to accurately identify the patient and procedure. Complications There were no apparent co mplications. Medications The patient's posterior pha rynx was anesthetized with 4% Lidocaine spray. Prior to the procedure the patient was alert and oriented. Versed 2 mg and Fentanyl 12.5 mcg were administered by the nurse with continuous monitoring of vital signs under my dire ct supervision. Total moderate sedation face to face monitoring time: 22 minutes. FINDINGS Left Ventricle Normal left ventricular chamber size. Normal left ventricular systolic function. Estimated left ventricular ejection fraction is 60-65%. Right Ventricle Normal right ventricula r chamber size. Normal right ventricular systolic function. Left Atrium Severe left atrial enlargem ent. Left Atrial Normal left atrial appendag e without evidence of thrombus. Appendage Right Atrium Right atrial enlargement. Atrial Septum Patent foramen ovale with cmvhj-bw-wasi shunt by color Doppler. Aortic Valve Trileaflet aortic valve. A ortic valve sclerosis without stenosis. Trivial aortic valve regurgitation. Mitral Valve Moderate focal/bulky poste rior mitral annular nodular calcification is unchanged from previous. No mitral valve stenosis. Mild mitral valve regurgitati on. Tricuspid Valve Grossly normal/mildly t hickened tricuspid valve. No obvious vegetation on the tricuspid valve.mild tricuspid valve regurgitation. Pulmonic Valve Pulmonary valve was not well visualized. No pulmonary valve stenosis. No pulmonary valve regurgitation. Ascending Aorta Aortic sinus of Valsalv a was not assessed. 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 Descending Aorta Pericardium No pericardial effusion. Other PICC/dialysis catheter is present within the right atrium. Multiple small mobile echodensities noted on catheter may represent bacterial vegetation vs. thrombin stranding. Carlos Helton MD [facility] Accredited Site (Electronically Signed) Final Date: 16 December 2021 11:35 ICD-10 Codes: I38 Reyes Mine Schofield [facility] ECHO ORD SCAN-LABORATORY REPORT (12/13/2021 12:00 AM CDT)Only the most recent of2 results within the time period is included. Narrative This result has an attachment that is no t available. Scanner OTHER (ABNORMAL) HEMOGLOBIN (11/30/2021 6:14 AM CDT)Only the most recent of21 results within the time period is included. athologist Signature HEMOGLOBIN 8.4 (L) 12.0 - 11/30/2021 [facility] 16.0 g/dL 8:48 AM CDT LABORATORY MCV 93 80 - 100 11/30/2021 [facility] fL 8:48 AM CDT LABORATORY Specimen Anatomical Collection Method Collection Time Receive d Time (Source) Location / / Volume Laterality Blood BLOOD SPECIMEN / Line/Port / 11/30/2021 6:14 AM 11/30 6:19 Unknown Unknown CDT AM CDT Solomon Dee MD HEMATOLOGY Performing Organization Address City/State/ZIP Code Phon e Number [facility] LABORATORY SENDOUT INTERNAL ZIP [place], [place] [phone] [facility] SCAN-CARDIAC STRIP (11/29/2021 11:06 AM CDT) Narrative This result has an attachment that is no t available. Scanner OTHER SCAN-CARDIAC STRIP (11/29/2021 4:14 AM CDT) Narrative This result has an attachment that is no t available. Scanner OTHER SCAN-CARDIAC STRIP (11/28/2021 7:17 PM CDT) Narrative This result has an attachment that is no t available. Scanner OTHER SCAN-CARDIAC STRIP (11/28/2021 3:59 PM CDT) Narrative This result has an attachment that is no t available. Scanner OTHER SCAN-CARDIAC STRIP (11/28/2021 9:36 AM CDT) Narrative This result has an attachment that is no t available. Scanner OTHER SCAN-CARDIAC STRIP (11/28/2021 12:08 AM CDT) Narrative This result has an attachment that is no t available. Scanner OTHER (ABNORMAL) GLUCOSE METER (11/27/2021 5:14 PM CDT)Only the most recent of70 resultswithin the time period is included. P athologist Signature GLUCOSE METER 109 (H) 65 - 100 11/27/2021 [facility] mg/dL 5:14 PM CDT HOSPITAL LABORATORY Specimen Anatomical Collection Method Collection Time Receive d Time (Source) Location / / Volume Laterality Blood BLOOD SPECIMEN / 11/27/2021 5:14 PM 11/27 5:14 Unknown CDT PM CDT Solomon Dee MD CHEMISTRY Performing Organization Address City/State/ZIP Code Phon e Number [facility] LABORATORY SENDOUT INTERNAL ZIP [place] [phone] [facility] SCAN-CARDIAC STRIP (11/27/2021 3:59 PM CDT) Narrative This result has an attachment that is no t available. Scanner OTHER SCAN-CARDIAC STRIP (11/27/2021 7:00 AM CDT) Narrative This result has an attachment that is no t available. Scanner OTHER SCAN-CARDIAC STRIP (11/26/2021 11:59 PM CDT) Narrative This result has an attachment that is no t available. Scanner OTHER SCAN-CARDIAC STRIP (11/26/2021 6:59 AM CDT) Narrative This result has an attachment that is no t available. Scanner OTHER SCAN-CARDIAC STRIP (11/26/2021 6:08 AM CDT) Narrative This result has an attachment that is no t available. Scanner OTHER TRANSFUSE RBC (NURSE COMMUNICATION ORDER) (11/26/2021 5:31 AM CDT) Specimen (Source) Anatomical Location Collection Method / Collectio n Time Received Time / Laterality Volume Blood BLOOD SPECIMEN / Unknown Sepideh Chi [facility] B[facility] RBC W/O TYPE & SCREEN (11/26/2021 2:24 AM CDT)Only the most recent of4 results within the time period is included. P athologist Signature QUANTITY 1 11/26/2021 [facility] 2:24 AM CDT LABORATORY BLOOD BANK Specimen (Source) Anatomical Collection Method Collection Time Re ceived Time Location / / Volume Laterality Blood BLOOD SPECIMEN / 11/26/2021 1:54 Unknown AM CDT Sepideh Chi NP BLOOD BANK Performing Organization Address City/[facility]/ZIP Code Phon e Number [facility] LABORATORY [address] [place] [phone] BLOOD BANK RED BLOOD CELLS EA UNIT (11/26/2021 2:23 AM CDT)Only the most recent of5 results within the time period is included. Patholo gist Method Time Signature CROSSMATCH Compatible Compatible [facility] BLOOD BANK PRODUCT BLOOD O Rh Positive [facility] BLOOD BANK PRODUCT ID [id number] [facility] BLOOD BANK PRODUCT STATUS Transfused [facility] BLOOD BANK PRODUCT RBC -1 LR [facility] BLOOD BANK PRODUCT CODE [id number] [facility] BLOOD BANK ISSUE 11/26/21 [facility] DATE/TIME 02:29 [facility] LABORATORY BLOOD BANK Specimen (Source) Anatomical Location Collection Method / Collectio n Time Received Time / Laterality Volume Sepideh L Arti SOLIZ BLOOD BANK Performing Organization Address City/[facility]/ZIP [facility] Phon e Number [facility] LABORATORY [address] [place] [phone] BLOOD BANK SCAN-CARDIAC STRIP (11/25/2021 4:00 PM CDT) Narrative This result has an attachment that is no t available. Scanner OTHER IR PICC LINE (11/25/2021 12:52 PM CDT) Anatomical Region Laterality Modality X-Ray Angiography, O ther, Other Specimen (Source) Anatomical Collection Method Collection Time Re ceived Time Location / / Volume Laterality 11/25/2021 12:52 PM CDT Impressions 11/25/2021 1:01 PM CDT 1. ??Successful CT injectable PICC replacement. Narrative 11/25/2021 1:01 PM CDT For Patients: As a result of the Cures Act, medical imaging exams and procedure reports are released immediately into your electronic medical record. You may view this report before your re ferring provider. If you have questions, please contact your health care provider. LOCATION: [facility] MEDICAL IMAGING DATE: 11/25/2021 PROCEDURE: PERIPHERALLY INSERTED CENTRAL CATHETER (PICC) REPLACEMENT. INTERVENTIONAL RADIOLOGIST: Bhavik lópez MD. INDICATION: Referring service requests e xchange of the indwelling left upper extremity triple-lumen PICC for a single lumen PICC. CONTRAST: None. ANTIBIOTICS: None. ADDITIONAL MEDICATIONS: None. FLUOROSCOPIC TIME: 0.6 minutes. RADIATION DOSE: Air Kerma: 4 mGy COMPLICATIONS: No immediate complication s. STERILE BARRIER TECHNIQUE: Maximum steri le barrier technique was used. Cutaneous antisepsis was performed at the operative site with application of 2% chlorhexidine and a full body sterile drape. Prior to the procedure, the derrick barge operator and renan tant performed hand hygiene and wore hat, mask, sterile gown, and sterile gloves during the entire procedure. Ultrasound was prepped with a sterile probe cover and sterile gel was used. PROCEDURE/TECHNIQUE: ?? 1% lidocaine was infiltrated around the indwelling, right upper arm triple-lumen PICC. Initial fluoroscopy demonstrated the tip to be in the lower SVC.. The PICC was retracted and removed over an 018 gu idewire. Over the guidewire, a new 5 Joshua nch single lumen Bard part of PICC was advanced until the tip was in the right atrium. This was cut to 40 cm. The lumen aspirated and flushed adequately. FINDINGS: The completion fluoroscopic demonstrates a right upper extremity PICC with its tip at the right atrium Procedure Note Bhavik Head MD - 11/25/2021Forma tting of this note might be different from the original. For Patients: As a result of the ntury Cures Act, medical imaging exams and procedure reports are released immediately into your electronic medical record. You may view this report before your referring provider. If you have questions, please contact [facility] care provider. LOCATION: [facility] MEDICAL IMAGING DATE: 11/25/2021 PROCEDURE: PERIPHERALLY INSERTED CENTRAL CATHETER (PICC) REPLACEMENT. INTERVENTIONAL RADIOLOGIST: Bhavik lópez MD. INDICATION: Referring service requests e xchange of the indwelling left upper extremity triple-lumen PICC for a single lumen PICC. CONTRAST: None. ANTIBIOTICS: None. ADDITIONAL MEDICATIONS: None. FLUOROSCOPIC TIME: 0.6 minutes. RADIATION DOSE: Air Kerma: 4 mGy COMPLICATIONS: No immediate complication s. STERILE BARRIER TECHNIQUE: Maximum steri le barrier technique was used. Cutaneous antisepsis was performed at the operative site with application of 2% chlorhexidine and a full body sterile drape. Prior to the procedure, the derrick barge operator and senior executive assistant performed dominguez d hygiene and wore hat, mask, sterile gown, and sterile gloves during the entire procedure. Ultrasound was prepped with a sterile probe cover and sterile gel was used. PROCEDURE/TECHNIQUE: 1% lidocaine was infiltrated around the indwelling, right upper arm triple-lumen PICC. Initial fluoroscopy demonstrated the tip to be in the lower SVC.. The PICC was retracted and removed over an 018 guidewire. Over the guidewire, a new 5 Bulgarian single lum en Bard part of PICC was advanced until the tip was in the right atrium. This was cut to 40 cm. The lumen aspirated and flushed adequately. FINDINGS: The completion fluoroscopic demonstrates a right upper extremity PICC with its tip at the right atrium IMPRESSION: 1. Successful CT injectable PICC replace ment. Deborah Franz MD IR (ABNORMAL) ELECTROLYTE PANEL (11/25/2021 10:06 AM CDT) P athologist Signature SODIUM 130 (L) 135 - 145 11/25/2021 [facility] mmol/L 10:31 AM CDT LABORATORY POTASSIUM 4.4 3.5 - 5.0 11/25/2021 [facility] mmol/L 10:31 AM CDT LABORATORY CHLORIDE 98 98 - 110 11/25/2021 [facility] mmol/L 10:31 AM CDT LABORATORY CO2,TOTAL 26 21 - 31 11/25/2021 [facility] mmol/L 10:31 AM CDT LABORATORY ANION GAP 6 5 - 18 11/25/2021 [facility] 10:31 AM CDT LABORATORY Specimen Anatomical Collection Method / Collection Time Recei bruce Time (Source) Location / Volume Laterality Blood BLOOD SPECIMEN / Non-Lab 11/25/2021 10:06 022 Unknown Venipuncture / AM CDT 10:14 AM CDT Unknown Deborah Franz MD CHEMISTRY Performing Organization Address City/State/ZIP Code Phon e Number [facility] LABORATORY SENDOUT INTERNAL ZIP [place] [phone] [address] [facility] SCAN-CARDIAC STRIP (11/25/2021 7:07 AM CDT) Narrative This result has an attachment that is no t available. Scanner OTHER COVID 19 (11/25/2021 6:27 AM CDT)Only the most recent of3 resultswithin the time period is included. Analysis Performed At Path logist Time Signature COVID 19 Negative Negative 11/25/2021 [facility] 7:21 AM CDT [facility] LABORATORY Comment: All PCR tests are subject to fa lse negative result due to variability in viral load and collection technique. A n egative result does not rule out a SARS-CoV-2 infection. Clinical correlation required . Specimen Anatomical Location / Collection Method Collection Miguel e Received Time (Source) Laterality / Volume Other SPECIMEN FROM Non-Blood / 11/25/2021 6:27 11/25/2021 6:34 NASOPHARYNGEAL Unknown AM CDT AM CDT STRUCTURE / Unknown Narrative [facility] LABORATORY - 11/25/2021 7:21 AM CDT This test has been authorized by FDA und er an Emergency Use Authorization (EUA). This test is only authorized for the duration of time the declaration that circumstances exist justifying the authorization of th e emergency use of in vitro diagnostic tests for detection of SARS-CoV-2 virus and/or diagnosis of COVID-19 infection under section 564(b)(1) of the Act, 21 U.S.C. 360bbb-3(b) (1), unless the authorization is terminated or revoked sooner. Deborah Franz MD MICROBIOLOGY Performing Organization Address City/State/ZIP Code Phon e Number [facility] LABORATORY SENDOUT INTERNAL ZIP [place] [phone] [address] [facility] COVID 19 COLLECTION (11/25/2021 6:27 AM CDT)Only the most recent of3 results within the time period is included. [facility] gist Method Time Signature TESTING [facility] 11/25/2021 [facility] Laboratory 6:34 AM CDT [facility] LABORATORY Comment: Specimen submitted to [facility] for testing. Specimen Anatomical Location / Collection Method Collection Miguel e Received Time (Source) Laterality / Volume Other SPECIMEN FROM Non-Blood / 11/25/2021 6:27 11/25/2021 6:34 NASOPHARYNGEAL Unknown AM CDT AM CDT STRUCTURE / Unknown Deborah Franz MD SEND OUTS Performing Organization Address City/State/ZIP Code Phon e Number [facility] LABORATORY [place] [phone] [address] [facility] SCAN-OPERATIVE/PROCEDURE REPORT (11/25/2021 12:00 AM CDT) Narrative 11/25/2021 12:00 AM CDT This result has an attachment that is no t available. Ordered by an unspecified provider. Other Clinical Staff OTHER SCAN-CARDIAC STRIP (11/24/2021 8:14 PM CDT) Narrative This result has an attachment that is no t available. Scanner OTHER SCAN-CARDIAC STRIP (11/24/2021 5:42 PM CDT) Narrative This result has an attachment that is no t available. Scanner OTHER TRANSFUSE RBC (NURSE COMMUNICATION ORDER) (11/24/2021 2:01 PM CDT) Specimen (Source) Anatomical Location Collection Method / Collectio n Time Received Time / Laterality Volume Blood BLOOD SPECIMEN / Unknown Deborah Franz MD NURSING BLOOD BANK SCAN-CARDIAC STRIP (11/24/2021 12:00 AM CDT) Narrative This result has an attachment that is no t available. Scanner OTHER TRANSFUSE RBC (NURSE COMMUNICATION ORDER) (11/23/2021 10:20 PM CDT) Specimen (Source) Anatomical Location Collection Method / Collectio n Time Received Time / Laterality Volume Blood BLOOD SPECIMEN / Unknown Deborah Franz MD NURSING BLOOD BANK SCAN-CARDIAC STRIP (11/23/2021 4:25 PM CDT) Narrative This result has an attachment that is no t available. Scanner OTHER SCAN-CARDIAC STRIP (11/23/2021 4:25 PM CDT) Narrative This result has an attachment that is no t available. Scanner OTHER TRANSFUSE RBC (NURSE COMMUNICATION ORDER) (11/23/2021 2:27 PM CDT) Specimen (Source) Anatomical Location Collection Method / Collectio n Time Received Time / Laterality Volume Blood BLOOD SPECIMEN / Unknown Sepideh Chi NP NURSING BLOOD BANK TYPE & SCREEN (11/23/2021 9:01 AM CDT) [facility] gist Method Time Signature ABORH O Rh 11/23/2021 [facility] Positive 10:16 AM CDT HOSPITAL LABORATORY BLOOD BANK ANTIBODY Negative Negative 11/23/2021 [facility] SCREEN 10:16 AM CDT HOSPITAL LABORATORY BLOOD BANK SPECIMEN 11/26/21 11/23/2021 [facility] EXPIRATION 23:59 10:16 AM CDT HOSPITAL DATE/TIME LABORATORY BLOOD BANK Specimen Anatomical Collection Method / Collection Time Recei bruce Time (Source) Location / Volume Laterality Blood BLOOD SPECIMEN / Non-Lab 11/23/2021 9:01 11/24/19 22 9:31 Unknown Venipuncture / AM CDT AM CDT Unknown Sepideh Chi NP BLOOD BANK Performing Organization Address City/[facility]/ZIP [facility] Phon e Number [facility] LABORATORY [address] [place] [phone] BLOOD BANK EXTRA TUBE BLUE (11/23/2021 6:53 AM CDT) Specimen Anatomical Collection Method Collection Time Receive d Time (Source) Location / / Volume Laterality Blood BLOOD SPECIMEN / Extra Tube / 11/23/2021 6:53 AM 11/23 7:07 Unknown Unknown CDT AM CDT Doctor Unknown LABORATORY Performing Organization Address City/State/ZIP Code Phon e Number [facility] LABORATORY SENDOUT INTERNAL ZIP [place], [place] [phone] [place] [address] PLATELET COUNT (11/23/2021 6:53 AM CDT)Only the most recent of10 resultswithin the time period is included. P athologist Signature PLATELET COUNT 358 140 - 440 11/23/2021 [facility] thou/cu mm 7:17 AM CDT LABORATORY MPV 10.1 6.5 - 11.0 11/23/2021 [facility] fL 7:17 AM CDT LABORATORY Specimen Anatomical Collection Method / Collection Time Recei bruce Time (Source) Location / Volume Laterality Blood BLOOD SPECIMEN / Non-Lab 11/23/2021 6:53 11/24/19 22 7:06 Unknown Venipuncture / AM CDT AM CDT Unknown Narrative [facility] LABORATORY - 11/23/2021 7:17 AM CDT Every morning while on IV heparin. Every morning while on IV heparin. Necessary every morning while on IV hepa rin. Aroldo Alberto MD HEMATOLOGY Performing Organization Address City/State/ZIP Code Phon e Number [facility] LABORATORY SENDOUT INTERNAL ZIP [place], [place] [phone] [place] [address] (ABNORMAL) HEMATOCRIT (11/23/2021 6:53 AM CDT)Only the most recent of10 results within the time period is included. athologist Signature HEMATOCRIT 19.2 (L) 33.0 - 11/23/2021 [facility] 51.0 % 7:17 AM CDT LABORATORY Specimen Anatomical Collection Method / Collection Time Recei bruce Time (Source) Location / Volume Laterality Blood BLOOD SPECIMEN / Non-Lab 11/23/2021 6:53 11/24/19 22 7:06 Unknown Venipuncture / AM CDT AM CDT Unknown Narrative [facility] LABORATORY - 11/23/2021 7:17 AM CDT Every morning while on IV heparin. Every morning while on IV heparin. Necessary every morning while on IV hepa rin. Aroldo Alberto MD HEMATOLOGY Performing Organization Address [facility]/ZIP Code Phon e Number [facility] LABORATORY SENDOUT INTERNAL [place] [phone] [place] [address] (ABNORMAL) PROTIME-INR (11/23/2021 6:53 AM CDT)Only the most recent of3 results within the time period is included. athologist Signature INR 2.3 (H) <1.3 11/23/2021 [facility] 7:41 AM CDT LABORATORY PROTIME 24.0 (H) 12.0 - 13.8 11/23/2021 [facility] sec 7:41 AM CDT LABORATORY Specimen Anatomical Collection Method Collection Time Receive d Time (Source) Location / / Volume Laterality Blood BLOOD SPECIMEN / Extra Tube / 11/23/2021 6:53 AM 11/23 7:07 Unknown Unknown CDT AM CDT Narrative [facility] LABORATORY - 11/23/2021 7:41 AM CDT ?Therapeutic Range 2.0-3.0 for most anticoagulated patients 2.5-3.5 or 4.0 for high risk patients The INR is only used for patients on sta ble oral anticoagulant therapy. It makes no significant contribution to the diagnosis or treatment of patients whose Protime is prolonged f or other reasons. INR results are increased when heparin l evels exceed 1.0 U/mL, which corresponds to an aPTT >125 seconds if the patient is on UFH. Sepideh Chi NP HEMATOLOGY Performing Organization Address City/State/ZIP Code Phon e Number [facility] LABORATORY SENDOUT INTERNAL ZIP [place] [phone] [address] [facility] SCAN-CARDIAC STRIP (11/22/2021 9:48 PM CDT) Narrative This result has an attachment that is no t available. Scanner OTHER IR CENTRAL VENOUS CATHETER TUNNEL => 5Y INSERTION (11/22/2021 9:36 AM CDT) Anatomical Region Laterality Modality X-Ray Angiography, O ther, Other Specimen (Source) Anatomical Collection Method Collection Time Re ceived Time Location / / Volume Laterality 11/22/2021 9:36 AM CDT Impressions 11/22/2021 10:18 AM CDT Successful placement of right internal jugular tunnelled dialysis catheter with fluoroscopic and ultrasound guidance. CPT: 29068 [id number] The CPT codes are for physician use only . Narrative 11/22/2021 10:18 AM CDT For Patients: As a result of the Cures Act, medical imaging exams and procedure reports are released immediately into your [facility] medical record. You may view this report before your referring provider. If you have questions, please contact your health care provider. [facility] LOCATION: [facility] MEDICAL IMAGING DATE: 11/22/2021 PROCEDURES: 1. ??TUNNELED DIALYSIS CATHETER PLACEMEN T. 2. ??ULTRASOUND GUIDANCE. 3. ??FLUOROSCOPY. 4. ??CONSCIOUS SEDATION. INDICATION: ??Stage renal disease. Ongoi ng dialysis - bacteremia controlled SEDATION: During the time-out, immediate ly prior to administration of medications, the patient was reassessed for adequacy to receive conscious sedation. Versed 1.5 mg and Fentanyl 100 mcg were administ ered intravenously with continuous vital signs monitoring, by the radiology nurse under my direct supervision. Patient was alert and oriented post procedure. Total cwko-bi-yrii moderate sedation time: 30 min. ADDITIONAL MEDICATION:Vancomycin 1 g IV. FLUOROSCOPIC TIME: 1.2 mins. DOSE: Air K cassia:11 mGy. STERILE BARRIER TECHNIQUE: Maximum steri le barrier technique was used. Cutaneous antisepsis was performed at the operative site with application of 2% chlorhexidine and a full body sterile drape. Prior to the procedure, the derrick barge operator and renan silver performed hand hygiene and wore hat, mask, sterile gown, and sterile gloves during the entire procedure. Ultrasound was prepped with a sterile probe cover and sterile gel was used. PROCEDURE: ?? The right side of the neck was prepped a nd draped in a sterile fashion; 1% local lidocaine was infused into the local soft tissues. ??Prior to the procedure, patency of the right internal jugular vein w as confirmed with ultrasound and images recorded. ??Under real-time ultrasound guidance, the right internal jugular vein was accessed percutaneously, and the guidewire was advanced to the right atrial/superior vena caval junction. A subcutaneous tunnel was created in the anterior chest wall and through this subcutaneous tunnel, a 19 cm dual lumen dialysis catheter was brought and advanced into the peel-away sheath. Under fluorosc opic guidance, the tip of the catheter w as positioned at the junction of SVC and right atrium. ??Both ports flushed and aspirated without difficulty. ??Heparinized flush solution was then infused into b oth lumens of the dialysis catheter. ??C atheter was then secured to the anterior chest wall with 4-0 Prolene stitch. ??The neck incision was closed with 4-0 Vicryl. ??The patient tolerated the procedure well. RADIOGRAPHIC SUPERVISION INTERPRETATION: 1. ??ULTRASOUND GUIDANCE: ??Patent righ t internal jugular vein. 2. ??FLUOROSCOPY: ??The tip of the dial ysis catheter is in the right atrium. Procedure Note Niels Rodriguez MD - 11/23/19 22 For Patients: As a result of the ntury Cures Act, medical imaging exams and procedure reports are released immediately into your electronic medical record. You may view this report before your referring provider. If you have questions, please contact [facility] care provider. [facility] LOCATION: [facility] MEDICAL IMAGING DATE: 11/22/2021 PROCEDURES: 1. TUNNELED DIALYSIS CATHETER PLACEMENT. 2. ULTRASOUND GUIDANCE. 3. FLUOROSCOPY. 4. CONSCIOUS SEDATION. INDICATION: Stage renal disease. Ongoing dialysis - bacteremia controlled SEDATION: During the time-out, immediate ly prior to administration of medications, the patient was reassessed for adequacy to receive conscious sedation. Versed 1.5 mg and Fentanyl 100 mcg were administered intravenously with continuous vital sign s monitoring, by the radiology nurse under my direct supervision. Patient was alert and oriented post procedure. Total fxuq-uz-xzny moderate sedation time: 30 min. ADDITIONAL MEDICATION:Vancomycin 1 g IV. FLUOROSCOPIC TIME: 1.2 mins. DOSE: Air K cassia:11 mGy. STERILE BARRIER TECHNIQUE: Maximum steri le barrier technique was used. Cutaneous antisepsis was performed at the operative site with application of 2% chlorhexidine and a full body sterile drape. Prior to the procedure, the derrick barge operator and senior executive assistant performed dominguez d hygiene and wore hat, mask, sterile gown, and sterile gloves during the entire procedure. Ultrasound was prepped with a sterile probe cover and sterile gel was used. PROCEDURE: The right side of the neck was prepped a nd draped in a sterile fashion; 1% local lidocaine was infused into the local soft tissues. Prior to the procedure, patency of the right internal jugular vein was confirmed with ultrasound and images recorded. Under re al-time ultrasound guidance, the right internal jugular vein was accessed percutaneously, and the guidewire was advanced to the right atrial/superior vena caval junction. A subcutaneous tunnel was created in the anterior chest wall and through this subcutaneous tunnel, a 19 cm dual lumen dialysis catheter was brought and advanced into the peel-away sheath. Under fluoroscopic guidance, the tip of the catheter was positioned at th e junction of SVC and right atrium. Both ports flushed and aspirated without difficulty. Heparinized flush solution was then infused into both lumens of the dialysis catheter. Catheter was then secured to the anteri or chest wall with 4-0 Prolene stitch. The neck incision was closed with 4-0 Vicryl. The patient tolerated the procedure well. RADIOGRAPHIC SUPERVISION INTERPRETATION: 1. ULTRASOUND GUIDANCE: Patent right in ternal jugular vein. 2. FLUOROSCOPY: The tip of the dialysis catheter is in the right atrium. IMPRESSION: Successful placement of right internal j ugular tunnelled dialysis catheter with fluoroscopic and ultrasound guidance. CPT: 69083 [id number] The CPT codes are for physician use only . Florentino Keller MD IR SCAN-CARDIAC STRIP (11/22/2021 8:30 AM CDT) Narrative This result has an attachment that is no t available. Scanner OTHER (ABNORMAL) RENAL FUNCTION PANEL (11/22/2021 5:59 AM CDT)Only the most recent of2 resultswithin the time period is included. [facility] gist Method Time Signature SODIUM 124 (L) 135 - 145 11/22/2021 [facility] mmol/L 7:00 AM [facility] POTASSIUM 4.9 3.5 - 5.0 11/22/2021 [facility] mmol/L 7:00 AM [facility] CHLORIDE 91 (L) 98 - 110 11/22/2021 [facility] mmol/L 7:00 AM [facility] CO2,TOTAL 22 21 - 31 11/22/2021 [facility] mmol/L 7:00 AM [facility] ANION GAP 11 5 - 18 11/22/2021 [facility] 7:00 AM [facility] GLUCOSE 90 65 - 100 11/22/2021 [facility] mg/dL 7:00 AM [facility] CALCIUM 7.7 (L) 8.5 - 10.5 11/22/2021 [facility] mg/dL 7:00 AM [facility] BUN 34 (H) 8 - 25 11/22/2021 [facility] mg/dL 7:00 AM [facility] CREATININE 6.48 (H) 0.57 - 11/22/2021 [facility] 1.11 mg/dL 7:00 AM [facility] BUN/CREAT RATIO 5 (L) 10 - 20 11/22/2021 [facility] 7:00 AM [facility] PHOSPHORUS 6.2 (H) 2.3 - 4.7 11/22/2021 [facility] mg/dL 7:00 AM [facility] ALBUMIN 2.0 (L) 3.2 - 4.6 11/22/2021 [facility] g/dL 7:00 AM [facility] eGFR 6 (L) >90 11/22/2021 [facility] mL/min/1.7 7:00 AM [facility] 3m2 LABORATORY Comment: As of 2021, eGFR is calcu lated by the CKD-EPI creatinine equation without race adjustment. eGFR can be inf luenced by muscle mass, exercise, and diet. The reported eGFR is an estimation only and is only applicable if the renal function is stable. Specimen Anatomical Collection Method / Collection Time Recei bruce Time (Source) Location / Volume Laterality Blood BLOOD SPECIMEN / Non-Lab 11/22/2021 5:59 11/23/19 6:15 Unknown Venipuncture / AM CDT AM CDT Unknown Florentino Keller MD CHEMISTRY Performing Organization Address City/[facility]/ZIP Code Phon e Number [facility] LABORATORY SENDOUT INTERNAL [place], [place] [phone] [place] [address] (ABNORMAL) APTT (11/22/2021 1:59 AM CDT)Only the most recent of28 resultswithin the time period is included. P athologist Signature APTT 100 (H) 25 - 36 sec 11/22/2021 [facility] 2:20 AM CDT LABORATORY Specimen Anatomical Collection Method / Collection Time Recei bruce Time (Source) Location / Volume Laterality Blood BLOOD SPECIMEN / Venipuncture / 11/22/2021 1:59 2021 2:06 Unknown Unknown AM CDT AM CDT Narrative [facility] LABORATORY - 11/22/2021 2:20 AM CDT Therapeutic Range: 76-99 seconds Deborah Franz MD HEMATOLOGY Performing Organization Address City/[facility]/ZIP Code Phon e Number [facility] LABORATORY SENDOUT INTERNAL [place] [phone] [place] [address] SCAN-CARDIAC STRIP (11/21/2021 8:34 PM CDT) Narrative This result has an attachment that is no t available. Scanner OTHER SCAN-CARDIAC STRIP (11/21/2021 5:28 PM CDT) Narrative This result has an attachment that is no t available. Scanner OTHER SCAN-CARDIAC STRIP (11/21/2021 9:18 AM CDT) Narrative This result has an attachment that is no t available. Scanner OTHER (ABNORMAL) WHITE BLOOD COUNT (11/21/2021 6:13 AM CDT) Analysis Performed At Patho logist Time Signature WHITE BLOOD 14.0 (H) 4.5 - 11.0 11/21/2021 [facility] COUNT thou/cu mm 3:23 PM CDT HOSPITAL LABORATORY NRBC 0.0 % 11/21/2021 [facility] 3:23 PM CDT HOS[facility]ITAL LABORATORY ABS NRBC 0.0 thou /cu 11/21/2021 [facility] mm 3:23 PM CDT HOSPITAL LABORATORY Specimen Anatomical Collection Method / Collection Time Recei bruce Time (Source) Location / Volume Laterality Blood BLOOD SPECIMEN / Non-Lab 11/21/2021 6:13 11/22/19 22 6:19 Unknown Venipuncture / AM CDT AM CDT Unknown Narrative [facility]OR[facility] - 11/21/2021 3:23 PM CDT Every morning while on IV heparin. Every morning while on IV heparin. Necessary every morning while on IV hepa rin. Harjit Roca MD HEMATOLOGY Performing Organization Address City/[facility]/ZIP Code Phon e Number [facility] SENDOUT INTERNAL ZIP [place], [place] [phone] [place] [address] (ABNORMAL) C-REACTIVE PROTEIN (11/21/2021 6:13 AM CDT)Only the most recent of2 resultswithin the time period is included. [facility] gist Method Time Signature C-REACTIVE 13.14 (H) <0.50 11/21/2021 [facility] mg/dL 1:28 PM CDT HOSPITAL LABORATORY Specimen Anatomical Collection Method / Collection Time Recei bruce Time (Source) Location / Volume Laterality Blood BLOOD SPECIMEN / Non-Lab 11/21/2021 6:13 11/22/19 22 6:19 Unknown Venipuncture / AM CDT AM CDT Unknown Harjit Roca MD CHEMISTRY Performing Organization Address [facility] Phon e Number [facility] SENDOUT INTERNAL ZIP [place] [id number] [place] [address] SCAN-CARDIAC STRIP (11/20/2021 7:30 PM CDT) Narrative This result has an attachment that is no t available. Scanner OTHER SCAN-CARDIAC STRIP (11/20/2021 9:07 AM CDT) Narrative This result has an attachment that is no t available. Scanner OTHER SCAN-CARDIAC STRIP (11/19/2021 7:06 PM CDT) Narrative This result has an attachment that is no t available. Scanner OTHER SCAN-CARDIAC STRIP (11/19/2021 7:30 AM CDT) Narrative This result has an attachment that is no t available. Scanner OTHER POTASSIUM (11/19/2021 6:05 AM CDT)Only the most recent of2 resultswithin the time period is included. P athologist Signature POTASSIUM 4.1 3.5 - 5.0 11/19/2021 [facility] mmol/L 6:24 AM CDT LABORATORY Specimen Anatomical Collection Method / Collection Time Recei bruce Time (Source) Location / Volume Laterality Blood BLOOD SPECIMEN / Non-Lab 11/19/2021 6:05 11/20/19 22 6:11 Unknown Venipuncture / AM CDT AM CDT Unknown Doni Orozco MD CHEMISTRY Performing Organization Address City/State/ZIP Code Phon e Number [facility] SENDOUT INTERNAL ZIP [place] [phone] [address] [facility] SCAN-CARDIAC STRIP (11/18/2021 7:40 PM CDT) Narrative This result has an attachment that is no t available. Scanner OTHER SCAN-CARDIAC STRIP (11/18/2021 8:21 AM CDT) Narrative This result has an attachment that is no t available. Scanner OTHER SCAN-CARDIAC STRIP (11/18/2021 1:06 AM CDT) Narrative This result has an attachment that is no t available. Scanner OTHER SCAN-CARDIAC STRIP (11/17/2021 6:18 PM CDT) Narrative This result has an attachment that is no t available. Scanner OTHER IR INS NON TUNNEL CV CATH => 5Y (11/17/2021 5:04 PM CDT) Anatomical Region Laterality Modality X-Ray Angiography, O ther, Other Specimen (Source) Anatomical Collection Method Collection Time Re ceived Time Location / / Volume Laterality 11/17/2021 5:04 PM CDT Impressions 11/17/2021 6:25 PM CDT 1. ??Successful non-tunneled dialysis catheter placement. 2. ??The catheter is ready for use. Narrative 11/17/2021 6:25 PM CDT For Patients: As a result of the Cures Act, medical imaging exams and procedure reports are released immediately into your [facility] medical record. You may view this report before your referring provider. If you have questions, please contact your health care provider. [facility] LOCATION: [facility] MEDICAL IMAGING DATE: 11/17/2021 PROCEDURE: NON-TUNNELED DIALYSIS CATHETE R PLACEMENT 1. ??Insertion of a non-tunneled central venous catheter. 2. ??Ultrasound guidance for vascular ac cess. A permanent image was stored. 3. ??Fluoroscopic guidance for central v enous access device placement. INTERVENTIONAL RADIOLOGIST: Gelacio kearns MD INDICATION: Patient is a 76-year-old fem marilyn the history of end-stage renal disease on hemodialysis who presents for nontunneled dialysis catheter placement. MODERATE SEDATION: None. CONTRAST: None. ANTIBIOTICS: None. ADDITIONAL MEDICATIONS: None. FLUOROSCOPIC TIME: 0.2 minutes. RADIATION DOSE: Air Kerma: 2 mGy. COMPLICATIONS: No immediate complication s. STERILE BARRIER TECHNIQUE: Maximum steri le barrier technique was used. Cutaneous antisepsis was performed at the operative site with application of 2% chlorhexidine and large sterile drape. Prior to the procedure, the derrick barge operator and senior executive assistant p erformed hand hygiene and wore hat, mask, sterile gown, and sterile gloves during the entire procedure. PROCEDURE: ?? Using local anesthesia and real-time ult rasound guidance the right internal jugular vein was identified. An image of this was saved in the patient's permanent record. A 21-gauge micropuncture needle was used, under ultrasound guidance, the ac cess into this vessel. Through the needle, a 0.018 wire was placed. The needle was exchanged for 3/5 Bulgarian coaxial dilator. A measurement was made. The inner 3 F rench dilator and wire were removed. A 0 .035 Amplatz wire was placed down into the IVC through the 5 Bulgarian dilator. The 5 Bulgarian dilator was then removed and the tract was serially dilated over the Amp latz wire. A 20 cm 14 ??Bulgarian hemodialy sis catheter was then advanced over the Amplatz wire the tip positioned in the mid/low right atrium. The wire was removed. The lumens were tested and aspirated/fl ushed appropriately. Both lumens were lo cked with heparin. The catheter was sutured to the skin with 2-0 nylon sutures. A clean and sterile central line dressing was applied. The patient tolerated the procedure well. FINDINGS: Ultrasound shows an anechoic and jasbir sible right internal jugular vein. ?? Fluoroscopic spot film at completion of study show the nontunneled dialysis catheter tip lies in the mid/low right atrium. Procedure Note Gelacio Rosa MD - 2021 For Patients: As a result of the ntury Cures Act, medical imaging exams and procedure reports are released immediately into your electronic medical record. You may view this report before your referring provider. If you have questions, please contact [facility] health care provider. [facility] LOCATION: [facility] MEDICAL IMAGING DATE: 11/17/2021 PROCEDURE: NON-TUNNELED DIALYSIS CATHETE R PLACEMENT 1. Insertion of a non-tunneled central v enous catheter. 2. Ultrasound guidance for vascular acce ss. A permanent image was stored. 3. Fluoroscopic guidance for central sherice ous access device placement. INTERVENTIONAL RADIOLOGIST: Gelacio kearns MD INDICATION: Patient is a 76-year-old fem marilyn the history of end-stage renal disease on hemodialysis who presents for nontunneled dialysis catheter placement. MODERATE SEDATION: None. CONTRAST: None. ANTIBIOTICS: None. ADDITIONAL MEDICATIONS: None. FLUOROSCOPIC TIME: 0.2 minutes. RADIATION DOSE: Air Kerma: 2 mGy. COMPLICATIONS: No immediate complication s. STERILE BARRIER TECHNIQUE: Maximum steri le barrier technique was used. Cutaneous antisepsis was performed at the operative site with application of 2% chlorhexidine and large sterile drape. Prior to the procedure, the derrick barge operator and senior executive assistant performed hand hy giene and wore hat, mask, sterile gown, and sterile gloves during the entire procedure. PROCEDURE: Using local anesthesia and real-time ult rasound guidance the right internal jugular vein was identified. An image of this was saved in the patient's permanent record. A 21-gauge micropuncture needle was used, under ultrasound guidance, the access in to this vessel. Through the needle, a 0.018 wire was placed. The needle was exchanged for 3/5 Bulgarian coaxial dilator. A measurement was made. The inner 3 Bulgarian dilator and wire were removed. A 0.035 Amplatz wire was placed down into the IVC through the 5 Bulgarian dilator. The 5 Bulgarian dilator was then removed and the tract was serially dilated over the Amplatz wire. A 20 cm 14 Bulgarian hemodialysis catheter was then advanced over the Amplatz wire the tip positioned in the mid/low right atrium. The wire was removed. The lumens were tested and aspirated/flushed appropriately. Both lumens were locked with heparin. The catheter was sutured t o the skin with 2-0 nylon sutures. A clean and sterile central line dressing was applied. The patient tolerated the procedure well. FINDINGS: Ultrasound shows an anechoic and jasbir sible right internal jugular vein. Fluoroscopic spot film at completion of study show the nontunneled dialysis catheter tip lies in the mid/low right atrium. IMPRESSION: 1. Successful non-tunneled dialysis cath eter placement. 2. The catheter is ready for use. Doni Orozco MD IR ECHO ALIDA W BUBBLE WO CONTRAST (11/17/2021 2:49 PM CDT) P athologist Signature EJECTION 65% PROSOLV FRACTION Anatomical Region Laterality Modality HEART Ultrasound, Ultrasou nd, Other Specimen (Source) Anatomical Collection Method Collection Time Re ceived Time Location / / Volume Laterality 11/17/2021 1:13 PM CDT Narrative 11/17/2021 5:57 [place] [address] Main: [email or web address] ?Transesophageal Echo Report CYNTHIA HOLBROOK Luisian ID: [id number] Age: 76 : 0 1945 Ordering Provider: DEBORAH FRANZ Exam Date: 11/17/2021 13:13 Gender: F S onographer: AMBAR Height: 61 in BS A: 1.78 m?? BP: 143 / 93 Weight: 173 lbs BMI: 32.7 kg/m?? HR: 62 Location: Inpatient (Portable) Rhythm: Normal Sinus Rhythm Procedure Components: 2D imaging, Color Doppler, Limited Spectral Doppler, 3-D imaging and reconstruction with independent workstation review Indications: Acute and subacute endocar ditis Technical Quality: Adequate Contrast: B ubble Study Final Conclusion 1. There is a 1 cm mass on the posterio r leaflet of the tricuspid valve with an attached linear mobile echodensity measuring 1.7 cm x 0.4 cm. ??In the clinical setting of S. aur eus bacteremia this is consistent with infectious endocarditis 2. Moderate tricuspid valve regurgitati on. 3. Normal left ventricular systolic fun ction. Estimated left ventricular ejection fraction is 65%. No regional wall motion abnormaliti es. 4. Normal right ventricular size and sy stolic function. 5. Patent foramen ovale with bidirectio nal shunt by color Doppler and agitated saline injection. 6. 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 7. PICC present with tip 1.8 cm beyond the SVC/RA junction in the body of the right atrium. No adherent mass or thrombus. Estimated EF: 65% Level of Sedation: Moderate Physician s edation service time (mins): 41 Procedure Indications, goals, risks, be nefits, and alternatives pertaining to the procedure were discussed with the patient and daughter Irma and informed consent was obtained. ?? Prior to the performance of procedure, time out was called to accurately identify the patie nt and procedure. Successful esophageal intubation was performed with a Lis 3-D transesophageal probe after obtaining adequate retropharyngeal anesthesia. 3-D imaging of cardiac structures was performed. Complications There were no apparent co mplications. Medications Prior to the procedure the patient was alert and oriented. Intravenous medications were administered by the nurse with continuous monitoring of vit al signs under my direct supervision. Total moderate sedation face to face monitoring time is listed above. T he patient's posterior pharynx was anesthetized with viscous Lidocaine and 4% Lidocaine spray. The patient rec eived conscious sedation with 2.5 mg of intravenous Versed and 37.5 mcg of intravenous Fentanyl. FINDINGS Left Ventricle Normal left ventricular systolic function. Estimated left ventricular ejection fraction is 65%. No regional wall motion abnormalities. Right Ventricle Normal right ventricula r chamber size. Normal right ventricular systolic function. Left Atrium Left atrial enlargement. Left Atrial Normal left atrial appendag e without evidence of thrombus. Appendage Right Atrium Right atrial enlargement. Atrial Septum Patent foramen ovale with bidirectional shunt by color Doppler and agitated saline injection. Aortic Valve Trileaflet aortic valve. A ortic valve sclerosis without stenosis. No aortic valve regurgitation. Mitral Valve Moderate posterior mitral annular nodular calcification. Mild mitral valve regurgitation. Tricuspid Valve There is a 1 cm mass on the posterior leaflet of the tricuspid valve with an attached linear mobile echodensity measuring 1.7 cm x 0.4 cm. ??Moderate t ricuspid valve regurgitation. Pulmonic Valve Normal pulmonary valve. No pulmonary valve regurgitation. Trivial pulmonary valve regurgitation. Ascending Aorta Ascending aorta was not well visualized. Aortic Arch and Moderate immobile ather osclerosis of the aortic arch and descending thoracic aorta. Descending Aorta Pericardium No pericardial effusion. Other PICC present with tip 1.8 cm beyo nd the SVC/RA junction in the body of the right atrium. No adherent mass or thrombus. Amelia Page MD (Electronically Signed) [facility] Final Date: 17 November 2021 17:57 Amended: 16 December 2021 10:34 ICD-10 Codes: Procedure Note Amelia Page MD - 12/16/2021Fo rmatting of this note might be [place] [address] Main: [email or web address] Fixed Transesophageal Echo Report CYNTHIA HOLBROOK Excellian ID: [id number] Age: 76 : 0 1945 Ordering Provider: DEBORAH FRANZ Exam Date: 11/17/2021 13:13 Gender: F S onographer: AMBAR Height: 61 in BS A: 1.78 m?? BP: 143 / 93 Weight: 173 lbs BMI: 32.7 kg/m?? HR: 62 Location: Inpatient (Portable) Rhythm: Normal Sinus Rhythm Procedure Components: 2D imaging, Color Doppler, Limited Spectral Doppler, 3-D imaging and reconstruction with independent workstation review Indications: Acute and subacute endocar ditis Technical Quality: Adequate Contrast: B ubble Study Final Conclusion 1. There is a 1 cm mass on the posterio r leaflet of the tricuspid valve with an attached linear mobile echodensity measuring 1.7 cm x 0.4 cm. In the clinical setting of S. aureu s bacteremia this is consistent with infectious endocarditis 2. Moderate tricuspid valve regurgitati on. 3. Normal left ventricular systolic fun ction. Estimated left ventricular ejection fraction is 65%. No regional wall motion abnormalities. 4. Normal right ventricular size and sy stolic function. 5. Patent foramen ovale with bidirectio nal shunt by color Doppler and agitated saline injection. 6. 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 7. PICC present with tip 1.8 cm beyond the SVC/RA junction in the body of the right atrium. No adherent mass or thrombus. Estimated EF: 65% Level of Sedation: Moderate Physician s edation service time (mins): 41 Procedure Indications, goals, risks, be nefits, and alternatives pertaining to the procedure were discussed with the patient and daughter Irma and informed consent was obtained. Prior to the performance of procedure, time out was called to accurately identify the patie nt and procedure. Successful esophageal intubation was performed with a Lis 3-D transesophageal probe after obtaining adequate retropharyngeal anesthesia. 3-D imaging of cardiac structures was performed. Complications There were no apparent co mplications. Medications Prior to the procedure the patient was alert and oriented. Intravenous medications were administered by the nurse with continuous monitoring of vit al signs under my direct supervision. Total moderate sedation face to face monitoring time is listed above. T he patient's posterior pharynx was anesthetized with viscous Lidocaine and 4% Lidocaine spray. The patient rec eived conscious sedation with 2.5 mg of intravenous Versed and 37.5 mcg of intravenous Fentanyl. FINDINGS Left Ventricle Normal left ventricular systolic function. Estimated left ventricular ejection fraction is 65%. No regional wall motion abnormalities. Right Ventricle Normal right ventricula r chamber size. Normal right ventricular systolic function. Left Atrium Left atrial enlargement. Left Atrial Normal left atrial appendag e without evidence of thrombus. Appendage Right Atrium Right atrial enlargement. Atrial Septum Patent foramen ovale with bidirectional shunt by color Doppler and agitated saline injection. Aortic Valve Trileaflet aortic valve. A ortic valve sclerosis without stenosis. No aortic valve regurgitation. Mitral Valve Moderate posterior mitral annular nodular calcification. Mild mitral valve regurgitation. Tricuspid Valve There is a 1 cm mass on the posterior leaflet of the tricuspid valve with an attached linear mobile echodensity measuring 1.7 cm x 0.4 cm. Moderate tri cuspid valve regurgitation. Pulmonic Valve Normal pulmonary valve. No pulmonary valve regurgitation. Trivial pulmonary valve regurgitation. Ascending Aorta Ascending aorta was not well visualized. Aortic Arch and Moderate immobile ather osclerosis of the aortic arch and descending thoracic aorta. Descending Aorta Pericardium No pericardial effusion. Other PICC present with tip 1.8 cm beyo nd the SVC/RA junction in the body of the right atrium. No adherent mass or thrombus. Amelia Page MD (Electronically Signed) [facility] Final Date: 17 November 2021 17:57 Amended: 16 December 2021 10:34 ICD-10 Codes: Deborah Franz MD ECHO ORD SCAN-CARDIAC STRIP (11/17/2021 7:59 AM CDT) Narrative This result has an attachment that is no t available. Scanner OTHER HBSAG (HBS) (11/17/2021 5:36 AM CDT) [facility] gist Method Time Signature HBSAG Nonreactive Nonreactive 11/18/2021 [facility] [email or web address] 1:58 AM CDT LABORATORY-[facility] Specimen Anatomical Collection Method Collection Time Receive d Time (Source) Location / / Volume Laterality Blood BLOOD SPECIMEN / Line/Port / 11/17/2021 5:36 AM 11/17 5:42 Unknown Unknown CDT AM CDT Doni Orozco MD SEND OUTS Performing Organization Address City/State/ZIP Code Phon e Number [facility] [email or web address] [address] [place] [address] LABORATORY-CENTRAL 2000 LABORATORY SCAN-CARDIAC STRIP (11/17/2021 12:40 AM CDT) Narrative This result has an attachment that is no t available. Scanner OTHER SCAN-CARDIAC STRIP (11/16/2021 4:35 PM CDT) Narrative This result has an attachment that is no t available. Scanner OTHER BLOOD CULTURE (11/16/2021 2:43 PM CDT)Only the most recent of6 resultswithin the time period is included. athologist Signature CULTURE No Growth. 11/21/2021 [facility] [email or web address] 6:06 PM CDT LABORATORY-[facility] LABORATORY Specimen Anatomical Collection Method / Collection Time Recei bruce Time (Source) Location / Volume Laterality Blood BLOOD SPECIMEN / Venipuncture / 11/16/2021 2:43 2021 2:48 Unknown Unknown PM CDT PM CDT Yoan Quintana MD MICROBIOLOGY Performing Organization Address City/State/ZIP Code Phon e Number [facility] [address] [place] [address] LABORATORY-CENTRAL 2000 LABORATORY SCAN-CARDIAC STRIP (11/16/2021 7:46 AM CDT) Narrative This result has an attachment that is no t available. Scanner OTHER MAGNESIUM (11/16/2021 6:46 AM CDT)Only the most recent of2 resultswithin the time period is included. athologist Signature MAGNESIUM 2.5 1.6 - 2.6 11/16/2021 [facility] mg/dL 7:50 AM CDT LABORATORY Specimen Anatomical Collection Method / Collection Time Recei bruce Time (Source) Location / Volume Laterality Blood BLOOD SPECIMEN / Non-Lab 11/16/2021 6:46 11/17/19 22 6:52 Unknown Venipuncture / AM CDT AM CDT Unknown Arjun Hernandez MD CHEMISTRY Performing Organization Address City/State/ZIP Code Phon e Number [facility]ORATORY SENDOUT INTERNAL ZIP [place], [place] [phone] [facility] SCAN-CARDIAC STRIP (11/15/2021 11:14 PM CDT) Narrative This result has an attachment that is no t available. Scanner OTHER XR Chest PICC Line Placement Portable (11/15/2021 4:26 PM CDT) Anatomical Region Laterality Modality HEART, THORAX, CHEST Computed Radiograph y Specimen (Source) Anatomical Collection Method Collection Time Re ceived Time Location / / Volume Laterality 11/15/2021 4:26 PM CDT Impressions 11/15/2021 4:30 PM CDT Heart is mildly enlarged, unchanged. Rig ht PICC line tip in the distal SVC. Lungs are clear. Narrative 11/15/2021 4:30 PM CDT For Patients: As a result of the Century Cures Act, medical imaging exams and procedure reports are released immediately into your [facility] medical record. You may view this report before your referring provider. If you have questions, please contact your health care provider. EXAM: XR CHEST 1 VIEW PICC OR CVAD PLACE MENT PORTABLE LOCATION: [facility] MEDICAL IMAGING DATE/TIME: 11/15/2021 4:26 PM INDICATION: Line placement COMPARISON: 11/12/2021 Procedure Note Morgan Eason MD - 11/15/2021Formattin g of this note might be different from the original. For Patients: As a result of the Cures Act, medical imaging exams and procedure reports are released immediately into your electronic medical record. You may view this report before your referring provider. If you have questions, please contact [facility] health care provider. EXAM: XR CHEST 1 VIEW PICC OR CVAD PLACE MENT PORTABLE LOCATION: [facility] MEDICAL IMAGING DATE/TIME: 11/15/2021 4:26 PM INDICATION: Line placement COMPARISON: 11/12/2021 IMPRESSION: Heart is mildly enlarged, unchanged. Rig ht PICC line tip in the distal SVC. Lungs are clear. Gladys LOVELL GENERAL IMAGING SCAN-CARDIAC STRIP (11/15/2021 3:48 PM CDT) Narrative This result has an attachment that is no t available. Scanner OTHER IR FLUORO GUIDED SPINAL INJECTION (11/15/2021 9:37 AM CDT) Anatomical Region Laterality Modality X-Ray Angiography, O ther, Other Specimen (Source) Anatomical Collection Method Collection Time Re ceived Time Location / / Volume Laterality 11/15/2021 9:37 AM CDT Impressions 11/15/2021 9:43 AM CDT CONCLUSION: Technically successful fluoroscopically- guided percutaneous needle aspiration of the left L4-L5 facet joint. Narrative 11/15/2021 9:43 AM CDT For Patients: As a result of the Cures Act, medical imaging exams and procedure reports are released immediately into your [facility] medical record. You may view this report before your referring provider. If you have questions, please contact your health care provider. [facility] MEDICAL IMAGING INTERVENTIONAL NEURORADIOLOGY 11/15/2021 9:37 AM FLUOROSCOPICALLY GUIDED PERCUTANEOUS LEF T L4-L5 FACET JOINT ASPIRATION INDICATION: Back pain. MR reveals fluid within the left L4-L5 facet joint with surrounding edema suggesting septic joint. Request for facet aspiration and possible bone biopsy for further diagnosis and management. CONSENT: The procedure and its indicatio ns, major risks, benefits, and alternatives were discussed. Risks including, but not limited to, pain, hemorrhage, infection, nerve damage, spinal cord damage, ca rdiac and pulmonary dysfunction related to sedation. The possibility that the procedure may be nondiagnostic was discussed. Understanding was acknowledged, and informed consent was obtained. IV ANALGESIA: 100 mcg of fentanyl was ad ministered intravenously for this procedure FLUOROSCOPIC TIME: 3.5 minutes (4 images ) DOSE: Air Kerma: 320 mGy ESTIMATED BLOOD LOSS: Minimal PERFORMING PHYSICIAN(S): Anjel Elliott M.D. [facility] PROCEDURE: The patient was placed in pro ne position upon the fluoroscopic table. The skin of the back was prepped and draped in sterile fashion. Comparing with the MR scan, the L4-L5 level was fluorosco pically localized. The skin over the lef t L4-L5 facet joint trajectory was infiltrated with 1% lidocaine. A 22 G needle was then advanced into the facet joint under fluoroscopic guidance. A total of 0.5 cc of serosanguineous and then bloody f luid was aspirate. This fluid and needle washing with nonbacteriostatic normal saline was sent for further analysis. The needle was then removed. A dressing was applied. The procedure ap peared well-tolerated. There was no apparent complication. Procedure Note Anjel Elliott MD - 11/15/2021Form atting of this note might be different from the original. For Patients: As a result of the ntury Cures Act, medical imaging exams and procedure reports are released immediately into your electronic medical record. You may view this report before your referring provider. If you have questions, please contact [facility] care provider. [facility] MEDICAL IMAGING INTERVENTIONAL NEURORADIOLOGY 11/15/2021 9:37 AM FLUOROSCOPICALLY GUIDED PERCUTANEOUS LEF T L4-L5 FACET JOINT ASPIRATION INDICATION: Back pain. MR reveals fluid within the left L4-L5 facet joint with surrounding edema suggesting septic joint. Request for facet aspiration and possible bone biopsy for further diagnosis and management. CONSENT: The procedure and its indicatio ns, major risks, benefits, and alternatives were discussed. Risks including, but not limited to, pain, hemorrhage, infection, nerve damage, spinal cord damage, cardiac and pulmonary dysfunction related to sedatio n. The possibility that the procedure may be nondiagnostic was discussed. Understanding was acknowledged, and informed consent was obtained. IV ANALGESIA: 100 mcg of fentanyl was ad ministered intravenously for this procedure FLUOROSCOPIC TIME: 3.5 minutes (4 images ) DOSE: Air Kerma: 320 mGy ESTIMATED BLOOD LOSS: Minimal PERFORMING PHYSICIAN(S): Anjel Elliott M.D. [facility] PROCEDURE: The patient was placed in pro ne position upon the fluoroscopic table. The skin of the back was prepped and draped in sterile fashion. Comparing with the MR scan, the L4-L5 level was fluoroscopically localized. The skin over the left L4-L5 facet joint trajectory was infiltrated with 1% lidocaine. A 22 G needle was then advanced into the facet joint under fluoroscopic guidance. A total of 0.5 cc of serosanguineous and then bloody fluid wa s aspirate. This fluid and needle washing with nonbacteriostatic normal saline was sent for further analysis. The needle was then removed. A dressing was applied. The procedure ap peared well-tolerated. There was no apparent complication. IMPRESSION: CONCLUSION: Technically successful fluoroscopically- guided percutaneous needle aspiration of the left L4-L5 facet joint. [facility] RAY AEROBIC BACTERIAL CULTURE, STAIN (11/15/2021 9:35 AM CDT) [facility] Method Time Signature CULTURE No Growth. 11/18/2021 [facility] 8:07 AM CDT LABORATORY-[place] [facility] LABORATORY GRAM STAIN 1+ PMNs 11/18/2021 [facility] 8:07 AM [facility] GRAM STAIN No organisms 11/18/2021 [facility] seen 8:07 AM [facility] LABORATORY GRAM STAIN No RBCs 11/18/2021 [facility] 8:07 AM [facility] LABORATORY GRAM STAIN Gram stain 11/18/2021 [facility] performed by 8:07 AM [place], [place] Specimen Anatomical Collection Method Collection Time Receive d Time (Source) Location / / Volume Laterality Other (Other) Non-Blood / 11/15/2021 9:35 AM 11/16/19 22 9:44 Unknown CDT AM CDT [facility] LOVELL MICROBIOLOGY Performing Organization Address City/State/ZIP Code Phon e Number [facility] [address] [place] [address] [place] [address] LABORATORY-CENTRAL 2000 LABORATORY [facility] LABORATORY SENDOUT INTERNAL ZIP [place], [place] [phone] [facility] ANAEROBIC CULTURE (11/15/2021 9:35 AM CDT) [facility] gist Method Time Signature CULTURE No anaerobes 12/01/2021 [facility] isolated 7:49 AM CDT LABORATORY-[place] [facility] LABORATORY Specimen Anatomical Collection Method Collection Time Receive d Time (Source) Location / / Volume Laterality Other (Other) Non-Blood / 11/15/2021 9:35 AM 11/16/19 22 9:44 Unknown CDT AM CDT [facility] LOVELL MICROBIOLOGY Performing Organization Address City/[facility]/ZIP Code Phon e Number [facility] [address] [facility] [place] [address] [place] [address] LABORATORY-CENTRAL 2000 LABORATORY SCAN-CARDIAC STRIP (11/15/2021 8:01 AM CDT) Narrative This result has an attachment that is no t available. Scanner OTHER SCAN-ELECTROCARDIOGRAM EKG (11/15/2021 12:00 AM CDT)Only the most recent of2 resultswithin the time period is included. Narrative 11/15/2021 12:00 AM CDT This result has an attachment that is no t available. Ordered by an unspecified provider. Other Clinical Staff OTHER ECHO COMPLETE W CONTRAST (11/14/2021 9:12 AM CDT) P athologist Signature EJECTION 55-60% PROSOLV FRACTION Anatomical Region Laterality Modality HEART Ultrasound Specimen (Source) Anatomical Collection Method Collection Time Re ceived Time Location / / Volume Laterality 11/14/2021 7:19 AM CDT Narrative 11/14/2021 10:29 AM CDT [facility] [address] Main: [email or web address] hospital[facility] ? Transthoracic Echo Report CYNTHIA HOLBROOK ID: [id number] Age: 76 : 0 1945 Ordering Provider: PILO ESPARZA Exam Date: 11/14/2021 07:19 Gender: F S onographer: TIMOTHY Height: 61 in BS A: 1.78 m?? BP: 98 / 58 Weight: 173 lbs BMI: 32.7 kg/m?? HR: 84 Location: Inpatient (Portable) Rhythm: Normal Sinus Rhythm Procedure Components: 2D imaging with c ontrast, Color Doppler, Spectral Doppler Indications: [place] unspecified Technical Quality: Technically difficul t study, Fair Contrast: Definity Constrast Dose (ml): 0.3 Final Conclusion Previous Study: 2019 1. Normal left ventricular systolic fun ction. Calculated left ventricular ejection fraction (modified Lawton technique) is 58 %. 2. No regional wall motion abnormalitie s. 3. Normal right ventricular chamber siz e. Normal right ventricular systolic function. 4. No significant valvular heart diseas e. No significant change on [id number] c omparison to the 12/05/2019 study. Estimated EF: 55-60% FINDINGS Left Ventricle Normal left ventricular chamber size. Normal left ventricular wall thickness. Normal left ventricular systolic function. Calculated left ventricular e jection fraction (modified Lawton technique) is 58 %. No regional wall motion abnormalities. Diastolic Function Indeterminate left v entricular diastolic function. Right Ventricle Normal right ventricula r chamber size. Normal right ventricular systolic function. Estimated right ventricular systolic pressure is 30 mmHg. Left Atrium Moderate left atrial enlarg ement. Left atrial volume index is 43 ml/m??. Right Atrium Normal right atrial size. Atrial Septum No evidence of inter-atri al shunt by color flow Doppler. Aortic Valve Trileaflet aortic valve. A ortic valve sclerosis without stenosis. No aortic valve regurgitation. Mitral Valve Mildly calcified mitral an nulus. Mildly thickened mitral valve. No mitral valve stenosis. Trivial mitral valve regurgitation. Tricuspid Valve Normal tricuspid valve. Moderate tricuspid valve regurgitation. Pulmonic Valve Pulmonary valve was not well visualized. No pulmonary valve stenosis. No pulmonary valve regurgitation. Pericardium No pericardial effusion. Aorta Normal aortic sinus of Valsalva d imension (3.1 cm). Ascending aorta was not well visualized. Inferior Vena Cava Normal inferior vena cava with decreased inspiratory collapse. MEASUREMENTS ??(Male / Female) Normal V alues 2D MEASUREMENTS AND LV FUNCTION IVS Diastolic Thickness ? 1 cm ?< 1.1 cm / < 1.0 cm LV Diastolic Diameter PLAX ?4 .49 cm ? 4.2 - 5.9 / 3.9 - 5.3 cm LV Diastolic Diameter Index ? 2. 53 cm/m?? LVPW Diastolic Thickness ? 0.917 cm ?< 1.1 cm / < 1.0 cm LV Systolic Diameter PLAX ? 3 .21 cm LV Systolic Diameter Index ?1 .81 cm/m?? LVOT Diameter ? 2.2 cm LVOT Cardiac Output ? 5.3 l/min LVOT Cardiac Index ?2.83 l/min??m?? LVOT Stroke Volume ?63.1 ml Stroke Volume Index ? 33.7 ml/m?? LV Ejection Fraction MOD BP ? 57 .8 % ?>= 55 ??% LA Volume MOD BP ?75.4 ml LA Volume Index MOD BP ?42.5 ml/m?16 - 34 ml/m?? LV Mass ? 144 g LV Mass Index ? 78.4 g/m?? Sinuses of Valsalva Diameter(d) ?? 3.1 cm M MODE TAPSE MM ?1.16 cm DIASTOLOGY Mitral E Point Velocity ? 0.783 m/sec ? 0.70 - 1.02 m/sec Mitral A Point Velocity ? 0.606 m/sec ? 0.06 - 1.06 m/sec Mitral E to A Ratio ? 1.29 ?1.1 - 2.1 MV Deceleration Time ?173 msec ?167 - 231 msec LV E' Lateral Velocity ?0.0979 m/sec Mitral E to LV E' Lateral Ratio ?? 8 LV E' Septal Velocity ? 0.0522 m/sec Mitral E to LV E' Septal Ratio ?15 AORTIC VALVE AV Peak Velocity ?1.43 m/sec ?< 2.0 m/sec AV Peak Gradient ?8.18 mmHg AV Mean Gradient ?5 mmHg AV Velocity Time Integral ? 2 7.2 cm LVOT Peak Velocity ?0.953 m/sec LVOT Velocity Time Integral ? 16 .6 cm AV Area Cont Eq vti ? 2.32 cm?? AV Area Cont Eq pk ?2.53 cm?? AV Dimensionless Index ?0.61 MITRAL VALVE MV Pressure Half Time ? 51 msec MV Area PHT ? 4.31 cm?? TRICUSPID VALVE AND ESTIMATED PRESSURES TR Peak Velocity ?2.36 m/sec TR Peak Gradient ?22.2 mmHg Right Atrial Pressure ? 8 mmHg Right Ventricular Systolic Press ??30.2 mmHg HCM DATA LVOT SULTANA (r) ?3.63 mmHg Aortic Root ZScore: -1.19 Tamir Almanza MD [facility] Accredited Site (Electronically Signed) Final Date: 14 November 2021 10:29 ICD-10 Codes: 410.90 Procedure Note Tamir Almanza MD - 11/14/2021Form atting of this note might be [place] [address] Main: [email or web address] hospitalNeed Fixed Transthoracic Echo Report CYNTHIA HOLBROOK Excellian ID: [id number] Age: 76 : 0 1945 Ordering Provider: PILO ESPARZA Exam Date: 11/14/2021 07:19 Gender: F S onographer: TIMOTHY Height: 61 in BS A: 1.78 m?? BP: 98 / 58 Weight: 173 lbs BMI: 32.7 kg/m?? HR: 84 Location: Inpatient (Portable) Rhythm: Normal Sinus Rhythm Procedure Components: 2D imaging with c ontrast, Color Doppler, Spectral Doppler Indications: [place], [place] unspecified Technical Quality: Technically difficul t study, Fair Contrast: Definity Constrast Dose (ml): 0.3 Final Conclusion Previous Study: 2019 1. Normal left ventricular systolic fun ction. Calculated left ventricular ejection fraction (modified Lawton technique) is 58 %. 2. No regional wall motion abnormalitie s. 3. Normal right ventricular chamber siz e. Normal right ventricular systolic function. 4. No significant valvular heart diseas e. No significant change on [id number]-[id number] c omparison to the 12/05/2019 study. Estimated EF: 55-60% FINDINGS Left Ventricle Normal left ventricular chamber size. Normal left ventricular wall thickness. Normal left ventricular systolic function. Calculated left ventricular e jection fraction (modified Lawton technique) is 58 %. No regional wall motion abnormalities. Diastolic Function Indeterminate left v entricular diastolic function. Right Ventricle Normal right ventricula r chamber size. Normal right ventricular systolic function. Estimated right ventricular systolic pressure is 30 mmHg. Left Atrium Moderate left atrial enlarg ement. Left atrial volume index is 43 ml/m??. Right Atrium Normal right atrial size. Atrial Septum No evidence of inter-atri al shunt by color flow Doppler. Aortic Valve Trileaflet aortic valve. A ortic valve sclerosis without stenosis. No aortic valve regurgitation. Mitral Valve Mildly calcified mitral an nulus. Mildly thickened mitral valve. No mitral valve stenosis. Trivial mitral valve regurgitation. Tricuspid Valve Normal tricuspid valve. Moderate tricuspid valve regurgitation. Pulmonic Valve Pulmonary valve was not well visualized. No pulmonary valve stenosis. No pulmonary valve regurgitation. Pericardium No pericardial effusion. Aorta Normal aortic sinus of Valsalva d imension (3.1 cm). Ascending aorta was not well visualized. Inferior Vena Cava Normal inferior vena cava with decreased inspiratory collapse. MEASUREMENTS (Male / Female) Normal Josie ues 2D MEASUREMENTS AND LV FUNCTION IVS Diastolic Thickness 1 cm < 1.1 cm / < 1.0 cm LV Diastolic Diameter PLAX 4.49 cm 4.2 - 5.9 / 3.9 - 5.3 cm LV Diastolic Diameter Index 2.53 cm/m?? LVPW Diastolic Thickness 0.917 cm < 1.1 cm / < 1.0 cm LV Systolic Diameter PLAX 3.21 cm LV Systolic Diameter Index 1.81 cm/m?? LVOT Diameter 2.2 cm LVOT Cardiac Output 5.3 l/min LVOT Cardiac Index 2.83 l/min??m?? LVOT Stroke Volume 63.1 ml Stroke Volume Index 33.7 ml/m?? LV Ejection Fraction MOD BP 57.8 % >= 5 5 % LA Volume MOD BP 75.4 ml LA Volume Index MOD BP 42.5 ml/m?? 16 - 34 ml/m?? LV Mass 144 g LV Mass Index 78.4 g/m?? Sinuses of Valsalva Diameter(d) 3.1 cm M MODE TAPSE MM 1.16 cm DIASTOLOGY Mitral E Point Velocity 0.783 m/sec 0.7 0 - 1.02 m/sec Mitral A Point Velocity 0.606 m/sec 0.0 6 - 1.06 m/sec Mitral E to A Ratio 1.29 1.1 - 2.1 MV Deceleration Time 173 msec 167 - 231 msec LV E' Lateral Velocity 0.0979 m/sec Mitral E to LV E' Lateral Ratio 8 LV E' Septal Velocity 0.0522 m/sec Mitral E to LV E' Septal Ratio 15 AORTIC VALVE AV Peak Velocity 1.43 m/sec < 2.0 m/sec AV Peak Gradient 8.18 mmHg AV Mean Gradient 5 mmHg AV Velocity Time Integral 27.2 cm LVOT Peak Velocity 0.953 m/sec LVOT Velocity Time Integral 16.6 cm AV Area Cont Eq vti 2.32 cm?? AV Area Cont Eq pk 2.53 cm?? AV Dimensionless Index 0.61 MITRAL VALVE MV Pressure Half Time 51 msec MV Area PHT 4.31 cm?? TRICUSPID VALVE AND ESTIMATED PRESSURES TR Peak Velocity 2.36 m/sec TR Peak Gradient 22.2 mmHg Right Atrial Pressure 8 mmHg Right Ventricular Systolic Press 30.2 m mHg HCM DATA LVOT SULTANA (r) 3.63 mmHg Aortic Root ZScore: -1.19 Tamir Almanza MD [facility] Accredited Site (Electronically Signed) Final Date: 14 November 2021 10:29 ICD-10 Codes: 410.90 Pilo Esparza MD ECHO ORD SCAN-CARDIAC STRIP (11/14/2021 8:33 AM CDT) Narrative This result has an attachment that is no t available. Scanner OTHER IR REMOVE VENOUS PORT/CATH (11/14/2021 7:54 AM CDT) Anatomical Region Laterality Modality X-Ray Angiography, O ther, Other Specimen (Source) Anatomical Collection Method Collection Time Re ceived Time Location / / Volume Laterality 11/14/2021 7:54 AM CDT Impressions 11/14/2021 8:40 AM CDT Successful removal of tunneled right IJ vein dialysis catheter. CPT code for physician reference only: 48208 Narrative 11/14/2021 8:40 AM CDT For Patients: As a result of the Cures Act, medical imaging exams and procedure reports are released immediately into your electronic medical record. You may view this report before your re ferring provider. If you have questions, please contact your health care provider. [facility] LOCATION: [facility] MEDICAL IMAGING DATE: 11/14/2021 PROCEDURE: TUNNELED DIALYSIS CATHETER RE MOVAL INTERVENTIONAL RADIOLOGIST: Vance Davis MD. INDICATION: Suspected bacteremia from tu nneled dialysis catheter source. COMPLICATIONS: No immediate complication s. PROCEDURE: The right upper chest and catheter were prepped and draped in usual sterile fashion followed by local anesthesia with 1% Xylocaine. The catheter and cuff were removed. Hemostasis was obtained with manua l compression. A sterile gauze dressing was applied. FINDINGS: Successful removal of tunneled right IJ vein dialysis catheter. Procedure Note Vance Davis MD - 11/14/2021Form atting of this note might be different from the original. For Patients: As a result of the Cures Act, medical imaging exams and procedure reports are released immediately into your electronic medical record. You may view this report before your referring provider. If you have questions, please contact [facility] health care provider. [facility] LOCATION: [facility] MEDICAL IMAGING DATE: 11/14/2021 PROCEDURE: TUNNELED DIALYSIS CATHETER RE MOVAL INTERVENTIONAL RADIOLOGIST: Vance Davis MD. INDICATION: Suspected bacteremia from tu nneled dialysis catheter source. COMPLICATIONS: No immediate complication s. PROCEDURE: The right upper chest and catheter were prepped and draped in usual sterile fashion followed by local anesthesia with 1% Xylocaine. The catheter and cuff were removed. Hemostasis was obtained with manual compression. A sterile gauze dressing wa s applied. FINDINGS: Successful removal of tunneled right IJ vein dialysis catheter. IMPRESSION: Successful removal of tunneled right IJ vein dialysis catheter. CPT code for physician reference only: 28225 Florentino Keller MD IR TSH (11/14/2021 6:48 AM CDT) P athologist Signature TSH 2.31 0.35 - 4.94 11/14/2021 [facility] uIU/mL 3:41 PM CDT LABORATORY Specimen Anatomical Collection Method / Collection Time Recei bruce Time (Source) Location / Volume Laterality Blood BLOOD SPECIMEN / Venipuncture / 11/14/2021 6:48 2021 6:57 Unknown Unknown AM CDT AM CDT Narrative [facility] LABORATORY - 11/14/2021 3:41 PM CDT In Adults, TSH values between 5.00 and 10.00 uIU/ml do not necessarily indicate the presence of Hyp othyroidism. Correlation with clinical findings such as presence of goiter and/or Thyroperoxidase (TPO) Antibody ma y be helpful. For more information please refer to SRAVANTHI 20 ; 291: [phone]. Arjun Hernandez MD CHEMISTRY Performing Organization Address City/State/ZIP Code Phon e Number [facility] LABORATORY SENDOUT INTERNAL ZIP [place] [phone] [facility] SCAN-CARDIAC STRIP (11/14/2021 3:25 AM CDT) Narrative This result has an attachment that is no t available. Scanner OTHER SCAN-CARDIAC STRIP (11/14/2021 3:24 AM CDT) Narrative This result has an attachment that is no t available. Scanner OTHER MR SPINE LUMBAR WO (11/13/2021 11:27 PM CDT) Anatomical Region Laterality Modality Spine, LUMBAR SPINE Magnetic Resonance Specimen (Source) Anatomical Collection Method Collection Time Re ceived Time Location / / Volume Laterality 11/13/2021 11:27 PM CDT Impressions 11/14/2021 12:30 AM CDT 1. ??Normal distal cord. 2. ??Prominent amount of fluid within le ft facet joint at L4-L5 and to lesser degree L3-L4. These facets are surrounded by prominent edema and swelling of left posterior paraspinal muscles. 3. ??Findings are suggestive of infectio us facet arthropathy; especially in this patient with clinically suspected infection. 4. ??Edema and swelling involves left ps oas muscle as well which could be due to secondary involvement due to its relative proximity. 5. ??There is also edema and slight heig ht loss involving superior endplate of L5 which could be due to discitis osteomyelitis process or slight compression fracture. 6. ??Abnormal high T2 signal is also wit hin virtually all visualized intervertebral spaces, however without definite evidence of edema in adjacent endplates and presumably on degenerative basis. 7. ??Prominent heterogeneity of visualiz ed vertebra is new since prior as well and probably due to osteopenia. Diffuse infectious process would be less likely. 8. ??Prominent degenerative changes, as described above; with marked canal narrowing at L4-L5, moderate at L3-L4, mild to moderate at T11-T12, and mild at L2-L3. Results were called to Dr. Chalino Franz at 11/14/2021 12:25 AM. Narrative 11/14/2021 12:30 AM CDT For Patients: As a result of the Cures Act, medical imaging exams and procedure reports are released immediately into your [facility] medical record. You may view this report before your referring provider. If you have questions, please contact your health care provider. EXAM: MR SPINE LUMBAR WO LOCATION: [facility] MEDICAL IMAGING DATE/TIME: 11/13/2021 11:27 PM INDICATION: Low back pain, infection ana pected COMPARISON: 01/23/2019 TECHNIQUE: Routine Lumbar Spine MRI with out IV contrast. FINDINGS: Nomenclature is based on 5 lumbar type v ertebral bodies. Normal distal spinal cord and cauda equina with conus medullaris at L1-L2. Large renal cysts bilaterally. Heterogeneity of pelvic bones, presumab ly due to osteopenia. Prominent right teofilo mbar scoliosis. Prominent amount of fluid within left fa cet joint at L4-L5 and to lesser degree L3-L4. These facets are surrounded by prominent edema and swelling of left posterior paraspinal muscles. Findings could be due to infectious facet arthropathy. Ed niraj and swelling involves left psoas muscle as well which could be due to secondary involvement due to its relative proximity. . There is also edema and slight he ight loss involving superior endplate of L5 which could be due to discitis osteomyelitis process or slight compression fracture. Abnormal high T2 signal is also within virtually all visualized intervert ebral spaces, however without definite e vidence of edema in adjacent endplates and presumably on degenerative basis. Prominent heterogeneity of visualized vertebra is new since prior as well and probabl y due to osteopenia. Diffuse infectious process would be less likely. T11-T12: Moderate narrowing of canal wit h abutment and slight mass effect on the cord. No definite pathological cord signal. T12-L1: Mild diffuse disc bulge. Mild fa cet arthropathy. No significant canal or foraminal narrowing. L1-L2: Mild diffuse disc bulge. Mild fac et arthropathy. No significant canal narrowing. Mild to moderate bilateral foraminal narrowing. L2-L3: Mild diffuse disc bulge. Moderate facet arthropathy. Mild left lateral recess narrowing. Mild canal narrowing. Moderate left foraminal narrowing. L3-L4: Moderate diffuse disc bulge. Mode rate facet arthropathy. Moderate canal narrowing. Moderate left foraminal narrowing. L4-L5: Moderate diffuse disc bulge more prominent paracentrally on the right. Marked facet arthropathy. Moderate bilateral lateral recess narrowing. Marked canal narrowing. Moderate bilateral foraminal narrowing. L5-S1: Mild diffuse disc bulge. Moderate facet arthropathy. No significant canal narrowing. Moderate to marked right and mild to moderate left foraminal narrowing. Procedure Note Nasim Dumas MD - 11/14/2021Forma tting of this note might be different from the original. For Patients: As a result of the ntury Cures Act, medical imaging exams and procedure reports are released immediately into your electronic medical record. You may view this report before your referring provider. If you have questions, please contact [facility] health care provider. EXAM: MR SPINE LUMBAR WO LOCATION: [facility] MEDICAL IMAGING DATE/TIME: 11/13/2021 11:27 PM INDICATION: Low back pain, infection ana pected COMPARISON: 01/23/2019 TECHNIQUE: Routine Lumbar Spine MRI with out IV contrast. FINDINGS: Nomenclature is based on 5 lumbar type v ertebral bodies. Normal distal spinal cord and cauda equina with conus medullaris at L1-L2. Large renal cysts bilaterally. Heterogeneity of pelvic bones, presumably due to osteopenia. Prominent right lumbar scoli osis. Prominent amount of fluid within left fa cet joint at L4-L5 and to lesser degree L3-L4. These facets are surrounded by prominent edema and swelling of left posterior paraspinal muscles. Findings could be due to infectious facet arthropathy. Edema and swelling in volves left psoas muscle as well which could be due to secondary involvement due to its relative proximity. . There is also edema and slight height loss involving superior endplate of L5 which could be due to discitis ost eomyelitis process or slight compression fracture. Abnormal high T2 signal is also within virtually all visualized intervertebral spaces, however without definite evidence of edema in adjacent endplates and presumab ly on degenerative basis. Prominent heterogeneity of visualized vertebra is new since prior as well and probably due to osteopenia. Diffuse infectious process would be less likely. T11-T12: Moderate narrowing of canal wit h abutment and slight mass effect on the cord. No definite pathological cord signal. T12-L1: Mild diffuse disc bulge. Mild fa cet arthropathy. No significant canal or foraminal narrowing. L1-L2: Mild diffuse disc bulge. Mild fac et arthropathy. No significant canal narrowing. Mild to moderate bilateral foraminal narrowing. L2-L3: Mild diffuse disc bulge. Moderate facet arthropathy. Mild left lateral recess narrowing. Mild canal narrowing. Moderate left foraminal narrowing. L3-L4: Moderate diffuse disc bulge. Mode rate facet arthropathy. Moderate canal narrowing. Moderate left foraminal narrowing. L4-L5: Moderate diffuse disc bulge more prominent paracentrally on the right. Marked facet arthropathy. Moderate bilateral lateral recess narrowing. Marked canal narrowing. Moderate bilateral foraminal narrowing. L5-S1: Mild diffuse disc bulge. Moderate facet arthropathy. No significant canal narrowing. Moderate to marked right and mild to moderate left foraminal narrowing. IMPRESSION: 1. Normal distal cord. 2. Prominent amount of fluid within left facet joint at L4-L5 and to lesser degree L3-L4. These facets are surrounded by prominent edema and swelling of left posterior paraspinal muscles. 3. Findings are suggestive of infectious facet arthropathy; especially in this patient with clinically suspected infection. 4. Edema and swelling involves left psoa s muscle as well which could be due to secondary involvement due to its relative proximity. 5. There is also edema and slight height loss involving superior endplate of L5 which could be due to discitis osteomyelitis process or slight compression fracture. 6. Abnormal high T2 signal is also withi n virtually all visualized intervertebral spaces, however without definite evidence of edema in adjacent endplates and presumably on degenerative basis. 7. Prominent heterogeneity of visualized vertebra is new since prior as well and probably due to osteopenia. Diffuse infectious process would be less likely. 8. Prominent degenerative changes, as de scribed above; with marked canal narrowing at L4-L5, moderate at L3-L4, mild to moderate at T11-T12, and mild at L2-L3. Results were called to Dr. Chalino Franz at 11/14/2021 12:25 AM. Jamari Harry DO MR MR Spine Thoracic wo Contrast * (11/13/2021 10:35 PM CDT) Anatomical Region Laterality Modality Spine, THORACIC SPINE Magnetic Resonance Specimen (Source) Anatomical Collection Method Collection Time Re ceived Time Location / / Volume Laterality 11/13/2021 10:35 PM CDT Addenda Addendum by Juanjose John MD on 11:28 PM CDT perinatal breastfeeding assistant Bsaia Temple not ified box printer Annie Leblanc regarding the addendum, who subsequently notified Dr. Chalino Franz. This communication occurred around 11:20 PM 0 11/13/2021. Addendum by Juanjose John MD on 11:13 PM CDT Multiple levels demonstrate increased T2 /STIR signal within the disc spaces including at T8-T9, T10-T11, T11- T12, T12-L1, L1-L2, L2-L3, L3-L4. There is no significant adjacent bone ma rrow edema. Findings likely reflect degenerative fluid clefts. Tieton duyen discitis without endplate osteomyelitis less likely. Please correl ate clinically. Impressions 11/13/2021 11:01 PM CDT IMPRESSION: 1. ??No definite abnormal cord signal gi sherice motion artifact. 2. ??Multilevel spondylosis described ab ove. 3. ??T11-T12 severe thecal sac stenosis. Narrative 11/13/2021 11:01 PM CDT For Patients: As a result of the 21st Century Cures Act, medical imaging exams and procedure reports are released immediately into your [facility] medical record. You may view this report before your referring provider. If you have questions, please contact your health care provider. EXAM: MR SPINE THORACIC WO LOCATION: [facility] MEDICAL IMAGING DATE/TIME: 11/13/2021 10:35 PM INDICATION: Mid-back pain COMPARISON: None TECHNIQUE: Routine Thoracic Spine MRI wi thout IV contrast. FINDINGS: Motion artifact limits aspects of examin ation. Normal vertebral body heights. ??No conc erning bone marrow lesions. ??No abnormal cord signal. ?? Mildly exaggerated thoracic kyphosis. Mu ltilevel degenerative disc disease. T12- L1, L1-L2, L2-L3, L3-L4 degenerative type II Modic changes. Multilevel facet arthropathy. Multiple small and prominent bulges. Mos t prominent bulges are noted at T11-T12, T12-L1, L1-L2, L2-L3, L3-L4. T11-T12 mild grade 1 retrolisthesis cole uring 2 mm. T12-L1 mild grade 1 retrolisthesis measu ring 1 mm. L1-L2 mild grade 1 retrolisthesis measur ing 2 mm. L2-L3 mild grade 1 retrolisthesis measur ing 2 mm. T11-T12 severe thecal sac stenosis measu ring 5 mm AP dimension. L1-L2 mild-moderate thecal sac stenosis. L2-L3 moderate to severe thecal sac sten osis. Otherwise, no greater than mild thecal s ac stenosis. T6-T7: Moderate left foraminal stenosis. Moderate right foraminal stenosis. T7-T8 moderate to severe left foraminal stenosis. Mild to moderate right foraminal stenosis. T10-T11: Moderate to severe left foramin al stenosis. [id number] right foraminal stenosis. T11-T12: Moderate to severe left foramin al stenosis. Moderate right foraminal stenosis. Otherwise, no greater than mild neural f oraminal stenosis. Upper lumbar spine neuroforamina subopti ave evaluated. OTHER: Partially visualized left renal prominen t cyst measuring at least 4.8 cm. No specific follow-up recommended. Procedure Note Juanjose John MD - 11/13/2021Forma tting of this note might be different from the original. For Patients: As a result of the ntury Cures Act, medical imaging exams and procedure reports are released immediately into your electronic medical record. You may view this report before your referring provider. If you have questions, please contact [facility] health care provider. EXAM: MR SPINE THORACIC WO LOCATION: [facility] MEDICAL IMAGING DATE/TIME: 11/13/2021 10:35 PM INDICATION: Mid-back pain COMPARISON: None TECHNIQUE: Routine Thoracic Spine MRI wi thout IV contrast. FINDINGS: Motion artifact limits aspects of examin ation. Normal vertebral body heights. No concer kamron bone marrow lesions. No abnormal cord signal. Mildly exaggerated thoracic kyphosis. Mu ltilevel degenerative disc disease. T12- L1, L1-L2, L2-L3, L3-L4 degenerative type II Modic changes. Multilevel facet arthropathy. Multiple small and prominent bulges. Mos t prominent bulges are noted at T11-T12, T12-L1, L1-L2, L2-L3, L3-L4. T11-T12 mild grade 1 retrolisthesis cole uring 2 mm. T12-L1 mild grade 1 retrolisthesis measu ring 1 mm. L1-L2 mild grade 1 retrolisthesis measur ing 2 mm. L2-L3 mild grade 1 retrolisthesis measur ing 2 mm. T11-T12 severe thecal sac stenosis measu ring 5 mm AP dimension. L1-L2 mild-moderate thecal sac stenosis. L2-L3 moderate to severe thecal sac sten osis. Otherwise, no greater than mild thecal s ac stenosis. T6-T7: Moderate left foraminal stenosis. Moderate right foraminal stenosis. T7-T8 moderate to severe left foraminal stenosis. Mild to moderate right foraminal stenosis. T10-T11: Moderate to severe left foramin al stenosis. [id number] right foraminal stenosis. T11-T12: Moderate to severe left foramin al stenosis. Moderate right foraminal stenosis. Otherwise, no greater than mild neural f oraminal stenosis. Upper lumbar spine neuroforamina subopti ave evaluated. OTHER: Partially visualized left renal prominen t cyst measuring at least 4.8 cm. No specific follow-up recommended. IMPRESSION: IMPRESSION: 1. No definite abnormal cord signal give n motion artifact. 2. Multilevel spondylosis described abov e. 3. T11-T12 severe thecal sac stenosis. Jamari Harry DO MR SCAN-CARDIAC STRIP (11/13/2021 8:23 PM CDT) Narrative This result has an attachment that is no t available. Scanner OTHER US VENOUS LOWER EXTREMITY BILATERAL PORTABLE (11/13/2021 6:15 PM CDT) Anatomical Region Laterality Modality LEGS, LEG L, LEG R Ultrasound Specimen (Source) Anatomical Collection Method Collection Time Re ceived Time Location / / Volume Laterality 11/13/2021 6:15 PM CDT Impressions 11/13/2021 6:25 PM CDT 1. ??No deep venous thrombosis in the bi lateral lower extremities. Narrative 11/13/2021 6:25 PM CDT For Patients: As a result of the Cures Act, medical imaging exams and procedure reports are released immediately into your [facility] medical record. You may view this report before your referring provider. If you have questions, please contact your health care provider. EXAM: US VENOUS LOWER EXTREMITY BILATERA L PORTABLE LOCATION: [facility] MEDICAL IMAGING DATE/TIME: 11/13/2021 6:15 PM INDICATION: Swelling COMPARISON: None. TECHNIQUE: Venous Duplex ultrasound of b ilateral lower extremities with and without compression, augmentation and duplex. Color flow and spectral Doppler with waveform analysis performed. FINDINGS: Exam includes the common femor al, femoral, popliteal veins as well as segmentally visualized deep calf veins and greater saphenous vein. RIGHT: No deep vein thrombosis. No super ficial thrombophlebitis. No popliteal cyst. LEFT: No deep vein thrombosis. No superf icial thrombophlebitis. No popliteal cyst. Procedure Note Erickson Harrell MD - 2 For Patients: As a result of the Cures Act, medical imaging exams and procedure reports are released immediately into your electronic medical record. You may view this report before your referring provider. If you have questions, please contact [facility] health care provider. EXAM: US VENOUS LOWER EXTREMITY BILATERA L PORTABLE LOCATION: [facility] MEDICAL IMAGING DATE/TIME: 11/13/2021 6:15 PM INDICATION: Swelling COMPARISON: None. TECHNIQUE: Venous Duplex ultrasound of b ilateral lower extremities with and without compression, augmentation and duplex. Color flow and spectral Doppler with waveform analysis performed. FINDINGS: Exam includes the common femor al, femoral, popliteal veins as well as segmentally visualized deep calf veins and greater saphenous vein. RIGHT: No deep vein thrombosis. No super ficial thrombophlebitis. No popliteal cyst. LEFT: No deep vein thrombosis. No superf icial thrombophlebitis. No popliteal cyst. IMPRESSION: 1. No deep venous thrombosis in the bila teral lower extremities. Deborah Franz MD RED CELL MORPHOLOGY (11/13/2021 11:21 AM CDT) [facility] Method Time Signature RBC COMMENT RBC RBC 11/13/2021 [facility] morphology morphology 1:12 PM HOSPITAL appears appears CDT LABORATORY normal normal, RBC morphology within normal limits for newborns. WBC VACUOLATED Present 11/13/2021 [facility] GRANULOCYTES 1:12 PM HOSPITAL CDT LABORATORY Specimen Anatomical Collection Method / Collection Time Recei bruce Time (Source) Location / Volume Laterality Blood BLOOD SPECIMEN / Venipuncture / 11/13/2021 11:21 11/13 Unknown Unknown AM CDT 11:24 AM CDT Deborah Franz MD HEMATOLOGY Performing Organization Address [facility]/ZIP [facility] [place] Phon e Number [facility] LABORATORY SENDOUT [place]NAL [place] [phone] [place] [address] (ABNORMAL) PLATELET ESTIMATE (11/13/2021 11:21 AM CDT) [facility] Method Time Signature PLATELET Decreased (A) Adequate, No 11/13/2021 [facility] ESTIMATE estimate 1:12 PM CDT [facility] LABORATORY Specimen Anatomical Collection Method / Collection Time Recei bruce Time (Source) Location / Volume Laterality Blood BLOOD SPECIMEN / Venipuncture / 11/13/2021 11:21 11/13 Unknown Unknown AM CDT 11:24 AM CDT Deborah Franz MD HEMATOLOGY Performing Organization Address [facility] Phon e Number [facility] LABORATORY SENDOUT [place] [phone] [place] [address] (ABNORMAL) CBC with Platelets no Differential (11/13/2021 11:21 AM CDT) [facility] Method Time Signature WHITE BLOOD 8.4 4.5 - 11.0 11/13/2021 [facility] COUNT thou/cu mm 1:12 PM CDT HOSPITAL LABORATORY RED BLOOD COUNT 3.72 (L) 4.00 - 11/13/2021 [facility] 5.20 1:12 PM CDT HOSPITAL mil/cu mm LABORATORY HEMOGLOBIN 11.1 (L) 12.0 - 11/13/2021 [facility] 16.0 g/dL 1:12 PM CDT HOSPITAL LABORATORY HEMATOCRIT 32.4 (L) 33.0 - 11/13/2021 [facility] 51.0 % 1:12 PM CDT HOSPITAL LABORATORY MCV 87 80 - 100 11/13/2021 [facility] fL 1:12 PM CDT [facility]OSPITAL LABORATORY MCH 29.8 26.0 - 11/13/2021 [facility] 34.0 pg 1:12 PM T HOSPITAL LABORATORY MCHC 34.3 32.0 - 11/13/2021 [facility] 36.0 g/dL 1:12 PM T HOSPITAL LABORATORY RDW 13.9 11.5 - 11/13/2021 [facility] 15.5 % 1:12 PM CDT HOSPITAL LABORATORY PLATELET COUNT 98 (L) 140 - 440 11/13/2021 [facility] thou/cu mm 1:12 PM T HOSPITAL LABORATORY MPV 10.9 6.5 - 11.0 11/13/2021 [facility] fL 1:12 PM T [facility]OSPITAL LABORATORY NRBC 0.0 % 11/13/2021 [facility] 1:12 PM T [facility]OS[facility]ITAL LABORATORY ABS NRBC 0.0 thou /cu 11/13/2021 [facility] mm 1:12 PM T HOSPITAL LABORATORY Specimen Anatomical Collection Method / Collection Time Recei bruce Time (Source) Location / Volume Laterality Blood BLOOD SPECIMEN / Venipuncture / 11/13/2021 11:21 11/13 Unknown Unknown AM CDT 11:24 AM CDT Deborah Franz MD HEMATOLOGY Performing Organization Address City/State/ZIP Code Phon e Number [facility] LABORATORY SENDOUT INTERNAL ZIP [place] [phone] [place] [address] SCAN-CARDIAC STRIP (11/13/2021 10:41 AM CDT) Narrative This result has an attachment that is no t available. Scanner OTHER SCAN-CARDIAC STRIP (11/13/2021 9:30 AM CDT) Narrative This result has an attachment that is no t available. Scanner OTHER SCAN-CARDIAC STRIP (11/13/2021 9:30 AM CDT) Narrative This result has an attachment that is no t available. Scanner OTHER (ABNORMAL) CREATININE (11/13/2021 2:08 AM CDT) P athologist Signature CREATININE 9.48 (HH) 0.57 - 11/13/2021 [facility] 1.11 mg/dL 2:29 AM CDT LABORATORY eGFR 4 (L) >90 11/13/2021 [facility] mL/min/1.7 2:29 AM CDT LABORATORY 3m2 Comment: As of 2021, eGFR is calcu lated by the CKD-EPI creatinine equation without race adjustment. eGFR can be inf luenced by muscle mass, exercise, and diet. The reported eGFR is an estimation only and is only applicable if the renal function is stable. Specimen Anatomical Collection Method / Collection Time Recei bruce Time (Source) Location / Volume Laterality Blood BLOOD SPECIMEN / Venipuncture / 11/13/2021 2:08 2021 2:13 Unknown Unknown AM CDT AM CDT Pilo Esparza MD CHEMISTRY Performing Organization Address City/State/ZIP Code Phon e Number [facility] LABORATORY SENDOUT INTERNAL ZIP [place] [phone] [address] [facility] SCAN-CARDIAC STRIP (11/13/2021 12:00 AM CDT) Narrative This result has an attachment that is no t available. Scanner OTHER CT CHEST PULMONARY EMBOLUS PE ABDOMEN PELVIS W (11/12/2021 10:10 PM CDT) Anatomical Region Laterality Modality CHEST, Abdomen, Pelvis Computed Tomograp hy Specimen (Source) Anatomical Collection Method Collection Time Re ceived Time Location / / Volume Laterality 11/12/2021 10:10 PM CDT Impressions 11/12/2021 10:34 PM CDT 1. ??No evidence for pulmonary emboli. 2. ??Fibrotic changes peripheral aspects of both lungs. No acute pulmonary disease. 3. ??Advanced atherosclerotic disease. 4. ??Fluid collection along the stomach margin is unchanged and could represent a gastric diverticulum or duplication cyst. 5. ??Bilateral renal cysts. Narrative 11/12/2021 10:34 PM CDT For Patients: As a result of the Century Cures Act, medical imaging exams and procedure reports are released immediately into your [facility] medical record. You may view this report before your referring provider. If you have questions, please contact your health care provider. EXAM: CT CHEST PULMONARY EMBOLUS PE ABDO MEN PELVIS W LOCATION: [facility] MEDICAL IMAGING DATE/TIME: 11/12/2021 10:10 PM INDICATION: Abdominal or pelvic pain COMPARISON: CT chest 11/27/2019 TECHNIQUE: CT chest pulmonary angiogram and routine CT abdomen pelvis with IV contrast. Arterial phase through the chest and venous phase through the abdomen and pelvis. Multiplanar reformats and MIP re constructions were performed. Dose reduc tion techniques were used. CONTRAST: IOHEXOL 350 MG IODINE/ML IV 50 0 ML BOTTLE: 90mL FINDINGS: ANGIOGRAM CHEST: Pulmonary arteries are normal caliber and negative for pulmonary emboli. Thoracic aorta is negative for dissection. No CT evidence of right heart strain. LUNGS AND PLEURA: Mild fibrotic changes along the periphery of both lungs and mild honeycombing left base posteriorly. No acute infiltrates or pleural effusions. MEDIASTINUM/AXILLAE: No enlarged mediast inal or hilar nodes. Atherosclerotic disease thoracic aorta. CORONARY ARTERY CALCIFICATION: Severe. HEPATOBILIARY: Normal. PANCREAS: Normal. SPLEEN: Normal. ADRENAL GLANDS: Normal. KIDNEYS/BLADDER: Bilateral renal cysts, the largest measuring 5 cm. No renal calculi or hydronephrosis.. BOWEL: No evidence for bowel obstruction . No bowel wall thickening or inflammatory changes. Fluid collection or cyst again seen within the left upper quadrant along the stomach margin measuring 6.1 x 5.2 cm, unchanged. LYMPH NODES: Normal. VASCULATURE: Advanced atherosclerotic di sease abdominal aorta and iliac arteries. 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 PELVIC ORGANS: Normal. MUSCULOSKELETAL: Total left hip arthropl asty. Scoliosis. Degenerative disc and facet disease lumbar spine. Procedure Note Audi Carrillo MD - 11/12/2021For matting of this note might be different from the original. For Patients: As a result of the ntury Cures Act, medical imaging exams and procedure reports are released immediately into your electronic medical record. You may view this report before your referring provider. If you have questions, please contact [facility] health care provider. EXAM: CT CHEST PULMONARY EMBOLUS PE ABDO MEN PELVIS W LOCATION: [facility] MEDICAL IMAGING DATE/TIME: 11/12/2021 10:10 PM INDICATION: Abdominal or pelvic pain COMPARISON: CT chest 11/27/2019 TECHNIQUE: CT chest pulmonary angiogram and routine CT abdomen pelvis with IV contrast. Arterial phase through the chest and venous phase through the abdomen and pelvis. Multiplanar reformats and MIP reconstructions were performed. Dose reduction techniques wer e used. CONTRAST: IOHEXOL 350 MG IODINE/ML IV 50 0 ML BOTTLE: 90mL FINDINGS: ANGIOGRAM CHEST: Pulmonary arteries are normal caliber and negative for pulmonary emboli. Thoracic aorta is negative for dissection. No CT evidence of right heart strain. LUNGS AND PLEURA: Mild fibrotic changes along the periphery of both lungs and mild honeycombing left base posteriorly. No acute infiltrates or pleural effusions. MEDIASTINUM/AXILLAE: No enlarged mediast inal or hilar nodes. Atherosclerotic disease thoracic aorta. CORONARY ARTERY CALCIFICATION: Severe. HEPATOBILIARY: Normal. PANCREAS: Normal. SPLEEN: Normal. ADRENAL GLANDS: Normal. KIDNEYS/BLADDER: Bilateral renal cysts, the largest measuring 5 cm. No renal calculi or hydronephrosis.. BOWEL: No evidence for bowel obstruction . No bowel wall thickening or inflammatory changes. Fluid collection or cyst again seen within the left upper quadrant along the stomach margin measuring 6.1 x 5.2 cm, unchanged. LYMPH NODES: Normal. VASCULATURE: Advanced atherosclerotic di sease abdominal aorta and iliac arteries. 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 PELVIC ORGANS: Normal. MUSCULOSKELETAL: Total left hip arthropl asty. Scoliosis. Degenerative disc and facet disease lumbar spine. IMPRESSION: 1. No evidence for pulmonary emboli. 2. Fibrotic changes peripheral aspects o f both lungs. No acute pulmonary disease. 3. Advanced atherosclerotic disease. 4. Fluid collection along the stomach ma rgin is unchanged and could represent a gastric diverticulum or duplication cyst. 5. Bilateral renal cysts. Pilo Esparza MD CT SCAN-CARDIAC STRIP (11/12/2021 7:12 PM CDT) Narrative This result has an attachment that is no t available. Scanner OTHER (ABNORMAL) BLOOD CULTURE MULTIPLEX PCR (11/12/2021 6:11 PM CDT) Component Value Ref Range Test Analysis Performed Pathologis t Method Time At Signature Organism(s) Detected Staphylococcus No MEENA NA aureus (AA) organism 2 10:34 [facility] targets AM CDT LABORATORY- detected. [facility] Resistance Gene(s) None detected None [facility] detected 2 10:34 [facility] AM CDT LABORATORY- [facility] CTX-M N/A [facility] (ESBL-resistance 2 10:34 [facility] gene) AM CDT LABORATORY- [facility] IMP N/A [facility] (carbapenem-resistan 2 10:34 HEALTH ce gene) AM CDT LABORATORY- [facility] KPC N/A [facility] (carbapenem-resistan 2 10:34 HEALTH ce gene) AM CDT LABORATORY- [facility] mcr-1 N/A [facility] (colistin-resistance 2 10:34 [facility] gene) AM CDT LABORATORY- [facility] mecA/C N/A [facility] (methicillin-resista 2 10:34 HEALTH nce gene) AM CDT LABORATORY- [facility] LAB[facility] mecA/C and MREJ NOT Detected [facility] (methicillin-resista 2 10:34 HEALTH nce gene) AM CDT LABORATORY- [facility] NDM N/A [facility] (carbapenem-resistan 2 10:34 HEALTH ce gene) AM CDT LABORATORY- [facility] LAB[facility] OXA-48 like N/A [facility] (carbapenem-resistan 2 10:34 HEALTH ce gene) AM CDT LABORATORY- [facility] van A/B N/A [facility] (vancomycin-resistan 2 10:34 HEALTH ce genes) AM CDT LABORATORY- [facility] VIM N/A [facility] (carbapenem-resistan 2 10:34 HEALTH ce gene) AM CDT LABORATORY- [facility] Enterococcus NOT Detected [facility] faecalis 2 10:34 [facility] AM CDT LABORATORY- [facility] Enterococcus faecium NOT Detected [facility] 2 10:34 [facility] AM CDT LABORATORY- [facility] Listeria NOT Detected [facility] monocytogenes 2 10:34 [facility] AM CDT LABORATORY- [facility] Staphylococcus Detected [facility] 2 10:34 [facility] AM CDT LABORATORY- [facility] Staphlococcus aureus Detected [facility] 2 10:34 [facility] AM CDT LABORATORY- [facility] Staphylococcus NOT Detected [facility] epidermidis 2 10:34 [facility] AM CDT LABORATORY- [facility] Staphylococcus NOT Detected [facility] lugdunensis 2 10:34 [facility] AM CDT LABORATORY- [facility] Streptococcus NOT Detected [facility] 2 10:34 [facility] AM CDT LABORATORY- [facility] Streptococcus NOT Detected [facility] agalactiae (Group B) 2 10:34 [facility] AM CDT LABORATORY- [facility] Streptococcus NOT Detected [facility] pneumoniae 2 10:34 [facility] AM CDT LABORATORY- [facility] Streptococcus NOT Detected [facility] pyogenes (Group A) 2 10:34 [facility] AM CDT LABORATORY- [facility] Acinetobacter NOT Detected [facility] calcoaceticus-razia 2 10:34 [facility] zeb complex AM CDT LABORATORY- [facility] LAB[facility] Enterobacteriaceae NOT Detected [facility] 2 10:34 [facility] AM CDT LABORATORY- [facility] Enterobacter cloacae NOT Detected [facility] complex 2 10:34 [facility] AM CDT LABORATORY- [facility] Escherichia coli NOT Detected [facility] 2 10:34 [facility] AM CDT LABORATORY- [facility] Klebsiella oxytoca NOT Detected [facility] 2 10:34 [facility] AM CDT LABORATORY- [facility] Klebsiella NOT Detected [facility] pneumoniae group 2 10:34 [facility] AM CDT LABORATORY- [facility] Proteus NOT Detected [facility] 2 10:34 [facility] AM CDT LABORATORY- [facility] Serratia marcescens NOT Detected [facility] 2 10:34 [facility] AM CDT LABORATORY- [facility] Haemophilus NOT Detected [facility] influenzae 2 10:34 [facility] AM CDT LABORATORY- [facility] Neisseria NOT Detected [facility] meningitidis 2 10:34 [facility] AM CDT LABORATORY- [facility] Pseudomonas NOT Detected [facility] aeruginosa 2 10:34 [facility] AM CDT LABORATORY- [facility] Monica albicans NOT Detected [facility] 2 10:34 [facility] AM CDT LABORATORY- [facility] Monica glabrata NOT Detected [facility] 2 10:34 [facility] AM CDT LABORATORY- [facility] Monica krusei NOT Detected [facility] 2 10:34 [facility] AM CDT LABORATORY- [facility] LAB[facility] Monica parapsilosis NOT Detected [facility] 2 10:34 [facility] AM CDT LABORATORY- [facility] LAB[facility] Monica tropicalis NOT Detected [facility] 2 10:34 [facility] AM CDT LABORATORY- [facility] Bacteroides fragilis NOT Detected [facility] group 2 10:34 [facility] AM CDT LABORATORY- [facility] Klebsiella aerogenes NOT Detected [facility] 2 10:34 [facility] AM CDT LABORATORY- [facility] LAB[facility] Salmonella NOT Detected [facility] 2 10:34 HEALTH AM CDT LABORATORY- CENTRAL LABORATORY Stenotrophomonas NOT Detected [facility] maltophilia 2 10:34 HEALTH AM CDT LABORATORY- CENTRAL LABORATORY Monica auris NOT Detected [facility] 2 10:34 HEALTH AM CDT LABORATORY- CENTRAL LABORATORY Cryptococcus NOT Detected [facility] neoformans/gattii 2 10:34 HEALTH AM CDT LABORATORY- CENTRAL LABORATORY Specimen Anatomical Collection Method / Collection Time Recei bruce Time (Source) Location / Volume Laterality Blood BLOOD SPECIMEN / Venipuncture / 11/12/2021 6:11 2021 6:22 Unknown Unknown PM CDT PM CDT Pilo Esparza MD MICROBIOLOGY Performing Organization Address City/State/ZIP Code Phon e Number [employer] [facility] [address] [place] [address] LABORATORY-CENTRAL [facility] LABORATORY LACTATE VENOUS (11/12/2021 6:11 PM CDT) P athologist Signature LACTATE,VENOUS 1.8 0.5 - 2.0 11/12/2021 [facility] mmol/L 6:40 PM CDT LABORATORY Specimen Anatomical Collection Method / Collection Time Recei bruce Time (Source) Location / Volume Laterality Blood BLOOD SPECIMEN / Venipuncture / 11/12/2021 6:11 2021 6:20 Unknown Unknown PM CDT PM CDT Pilo Esparza MD CHEMISTRY Performing Organization Address City/State/ZIP Code Phon e Number [facility] LABORATORY SENDOUT INTERNAL ZIP [place], [place] [phone] [place] [address] (ABNORMAL) PROCALCITONIN (11/12/2021 6:11 PM CDT) [facility] gist Method Time Signature PROCALCITONIN 27.61 (H) <0.50 11/12/2021 [facility] ng/ml 7:37 PM CDT HOSPITAL LABORATORY Specimen Anatomical Collection Method / Collection Time Recei bruce Time (Source) Location / Volume Laterality Blood BLOOD SPECIMEN / Venipuncture / 11/12/2021 6:11 2021 6:22 Unknown Unknown PM CDT PM CDT Narrative [facility] LABORATORY - 11/12/2021 7:37 PM CDT Procalcitonin for initial assessment of Lower Respiratory Tract Infection: Results Interpretation <0.1 ng/mL ?Antibiotics strong ly discouraged.* 0.1 - 0.25 ng/mL ??Antibiotics discourag ed. * 0.26 - 0.50 ng/mL Antibiotics encouraged . >0.50 ng/mL ? Antibiotics strongl y encouraged. *If suspicion of infection high, clinica lly unstable, or immunosuppressed: initiate antibiotics. Repeat PCT testing in 6-24 hours. Repeat PCT testing every 1-2 days whil e on antibiotics to assess response to therapy. Procalcitonin for initial assessment of severe sepsis risk: Results Interpretation < 0.5 ng/mL Associated with a low risk f or progression to severe sepsis/septic shock. > 2.0 ng/mL Associated with a high risk for progression to severe sepsis/septic shock. Note: PCT levels below 0.5 ng/mL do not exclude an infection, because localized infections may also be associated with such low levels. If the PCT measurement is done very early after the systemic infec tion process has started (usually <6 candy rs), these values may still be low. PCT levels between 0.5 ng/mL and 2.0 ng/ mL should be interpreted in the context of the specific clinical background and conditions of the individual patient. It is recommended to re-test PCT within 6-24 hours if any concentrations <2.0 ng/mL are obtained. Pilo Esparza MD SEND OUTS Performing Organization Address City/State/ZIP Code Phon e Number [facility] LABORATORY SENDOUT INTERNAL ZIP [place] [phone] [place] [address] (ABNORMAL) D-DIMER,QUANTITATIVE (11/12/2021 6:11 PM CDT) [facility] Method Time Signature D-DIMER,QUANT >20.00 See Comment 11/12/2021 [facility] / FEU 8:48 PM CDT HOSPITAL mcg/mL LABORATORY D-DIMER Abnormal (A) 11/12/2021 [facility] 8:48 PM CDT HOSPITAL LABORATORY Specimen Anatomical Collection Method / Collection Time Recei bruce Time (Source) Location / Volume Laterality Blood BLOOD SPECIMEN / Venipuncture / 11/12/2021 6:11 2021 6:22 Unknown Unknown PM CDT PM CDT Narrative [facility] LABORATORY - 11/12/2021 8:48 PM CDT The cut off value for exclusion of Deep Vein Thrombosis and / or Pulmonary Embolism is 0.50 FEU mcg/mL For patients greater than 50 years of ag e the upper limit is age dependent and was calculated with the formula: ?? (PATIENT AGE x 0.01) FEU mcg/mL = Upper limit of normal range Pilo Esparza MD HEMATOLOGY Performing Organization Address City/State/ZIP Code Phon e Number [facility] LABORATORY SENDOUT INTERNAL ZIP [place] [phone] [place] [address] (ABNORMAL) HEPATIC FUNCTION PANEL (11/12/2021 6:11 PM CDT) [facility] gist Method Time Signature ALBUMIN 3.2 3.2 - 4.6 11/12/2021 [facility] g/dL 6:49 PM [facility] LABORATORY PROTEIN,TOTAL 6.4 6.0 - 8.0 11/12/2021 [facility] g/dL 6:49 PM [facility] LABORATORY GLOBULIN 3.2 2.0 - 3.7 11/12/2021 [facility] g/dL 6:49 PM [facility] LABORATORY A/G RATIO 1.0 1.0 - 2.0 11/12/2021 [facility] 6:49 PM [facility] LABORATORY BILIRUBIN,TOTAL 0.9 0.2 - 1.2 11/12/2021 [facility] mg/dL 6:49 PM [facility] LABORATORY BILIRUBIN,DIRECT 0.6 (H) 0.1 - 0.5 11/12/2021 [facility] mg/dL 6:49 PM [facility] LABORATORY BILIRUBIN,INDIRE 0.3 0.2 - 0.8 11/12/[address] mg/dL 6:49 PM [facility] LABORATORY ALK PHOSPHATASE 61 50 - 136 11/12/2021 [facility] IU/L 6:49 PM [facility] LABOR[facility]ORY ALT (SGPT) 18 8 - 45 11/12/2021 [facility] IU/L 6:49 PM [facility] LABOR[facility]ORY AST (SGOT) 28 2 - 40 11/12/2021 [facility] IU/L 6:49 PM CDT HOSPITAL LABORATORY Specimen Anatomical Collection Method / Collection Time Recei bruce Time (Source) Location / Volume Laterality Blood BLOOD SPECIMEN / Venipuncture / 11/12/2021 6:11 2021 6:22 Unknown Unknown PM CDT PM CDT Pilo Esparza MD CHEMISTRY Performing Organization Address City/State/ZIP Code Phon e Number [facility] LABORATORY SENDOUT INTERNAL ZIP [place] [phone] [address] [facility] XR CHEST 1 VIEW PORTABLE (11/12/2021 5:30 PM CDT) Anatomical Region Laterality Modality HEART, THORAX, CHEST Computed Radiograph y Specimen (Source) Anatomical Collection Method Collection Time Re ceived Time Location / / Volume Laterality 11/12/2021 5:30 PM CDT Impressions 11/12/2021 5:43 PM CDT Mild cardiomegaly. Very heavy atheroscle rotic calcifications at aortic arch. Tunneled right IJ dialysis catheter position. The re is mild increased central hilar congestion and slight increase in interstitial prom inence consistent with edema and early changes of CHF. No focal pneumonia. Narrative 11/12/2021 5:43 PM CDT For Patients: As a result of the Cures Act, medical imaging exams and procedure reports are released immediately into your [facility] medical record. You may view this report before your referring provider. If you have questions, please contact your health care provider. EXAM: XR CHEST 1 VIEW PORTABLE LOCATION: [facility] MEDICAL IMAGING DATE/TIME: 11/12/2021 5:30 PM INDICATION: Eval Lung Infiltrate COMPARISON: 09/26/2021 Procedure Note Erickson Harrell MD - 2 For Patients: As a result of the Cures Act, medical imaging exams and procedure reports are released immediately into your electronic medical record. You may view this report before your referring provider. If you have questions, please contact [facility] health care provider. EXAM: XR CHEST 1 VIEW PORTABLE LOCATION: [facility] MEDICAL IMAGING DATE/TIME: 11/12/2021 5:30 PM INDICATION: Eval Lung Infiltrate COMPARISON: 09/26/2021 IMPRESSION: Mild cardiomegaly. Very heavy atheroscle rotic calcifications at aortic arch. Tunneled right IJ dialysis catheter position. There is mild increased central hilar congestion and slight increase in interstitial prominence consistent with edema and ear ly changes of CHF. No focal pneumonia. Pilo Esparza MD GENERAL IMAGING SCAN-OPERATIVE/PROCEDURE REPORT (11/12/2021 12:00 AM CDT) Narrative 11/12/2021 12:00 AM CDT This result has an attachment that is no t available. Ordered by an unspecified provider. Other Clinical Staff OTHER SCAN-OPERATIVE/PROCEDURE REPORT (11/12/2021 12:00 AM CDT) Narrative 11/12/2021 12:00 AM CDT This result has an attachment that is no t available. Ordered by an unspecified provider. Other Clinical Staff OTHER SCAN-OPERATIVE/PROCEDURE REPORT (11/12/2021 12:00 AM CDT) Narrative 11/12/2021 12:00 AM CDT This result has an attachment that is no t available. Ordered by an unspecified provider. Other Clinical Staff OTHER from Last 3 Months Insurance Payer Benefit Plan / Subscriber ID Effective Dates Phone Addre ss Type Group MEDICARE PART A MEDICARE PART A [id number] 2015-Presen ATTN: CLAIMS - HB USE ONLY HB ONLY t [address] [place] [address] [facility] [id number] 2021-Present [address] [place] [address] Advance Directives Latest Code Status on File Code Status Date Activated Date Inactivated Comments Full Code 11/12/2021 5:12 PM 11/30/2021 2:19 PM Code Status Discussion: Other Full Code 12/05/2019 12:57 AM 12/08/2019 7:43 PM Code Status Discussion: Discussed Care Teams Arborist Climber Relationship Specialty Start Date End Date Julio Spears MD PCP - General Family Practice 01/21/20 103 [address] [place] [address]
--- OUTSIDE RECORDS SUMMARY | 2022-01-04 15:47 | XMS_ITS | Encounter Summary ---
:1945 Author Organization [employer] Address [address], [place] [address] Phone Care Team Providers Name Role Phone Eusebia Whitaker MD Primary Care Provider Encounter Details Date Type Department Care Team Description 11/28/2019 Orders Only [facility] Audi Maurer MD [address] [facility] [address] [facility] [address] [place] [address] [place], [place] [address] (Wo rk) Social History Tobacco Use Types [...] (D2,D3), LC/MS/MS is recomm ended: order code 46805 (patients >2yrs). See Note 1 Note 1 For additional information, please refer to http://education.[employer].Big Fish/fa q/AKW023 (This link is being provided for informa tional/ educational purposes only.) Specimen Anatomical Collection Method Collection Time Receive d Time (Source) Location / / Volume Laterality 11/28/2019 11:55 11/28/2019 AM CDT 11:57 AM CDT Resulting Agency Comment Performing Organization Information: ?Site ID: [id number] ?Name: [facility] ?Address: [address] [place] [address] [place] [address] ?Director: Ramiro Fitzpatrick M.D. Audi aMurer MD LAB BLOOD ORDERABLES Performing Organization Address [...] Organization Information: ?Site ID: CB ?Name: [facility] ?Address: [address] [place], [place] [address], [place] [address] ?Director: Ramiro Fitzpatrick M.D. Audi Maurer MD LAB BLOOD ORDERABLES Performing Organization Address City/[facility]/ZIP Code Phon e Number [facility] [place] ([place]) Ferritin, Serum (11/28/2019 11:55 AM CDT) P athologist Signature Ferritin, 42 16 - 288 [facility] - Serum/Plasma ng/mL [place] (WDL) Specimen Anatomical Collection Method Collection Time Receive d Time (Source) Location / / Volume Laterality 11/28/2019 11:55 11/28/2019 AM CDT 11:57 AM CDT Resulting Agency Comment Performing Organization Information: ?Site ID: [id number] ?Name: [facility] ?Address: [address] [place], [place] [address], [place] [address] ?Director: Ramiro Fitzpatrick M.D. Audi Maurer MD LAB BLOOD ORDERABLES Performing Organization Address City/[facility]/ZIP Code Phon e Number [facility] - [...] Organization Information: ?Site ID: CB ?Name: [facility] ?Address: [address] [place], [place] [address], [place] [address] ?Director: Ramiro Fitzpatrick M.D. Audi Maurer MD LAB BLOOD ORDERABLES Performing Organization Address City/State/ZIP Code Phon e Number [facility] [place] ([place]) (ABNORMAL) Aucilla and Lambda Free Light Chains, Qn, Serum (11/28/2019 11:55 AM CDT) P athologist Signature Aucilla light 86.3 (H) 3.3 - 19.4 [facility] - chains, free, mg/L [place] Serum (WDL) Lambda light 38.2 (H) 5.7 - 26.3 [facility] - chains, free, mg/L [place] Serum/Plasma (WDL) Aucilla light 2.26 (H) 0.26 - [facility] - [...] Performing Organization Information: ?Site ID: [id number] ?Name: [facility] ?Address: [address] [place] [address] [place] [address] ?Director: Ramiro Fitzpatrick M.D. Audi Maurer MD [...] ?Site ID: CB ?Name: [facility] ?Address: [address] [place], [place] [address], [place] [address] ?Director: Ramiro Fitzpatrick M.D. Audi Maurer MD LAB URINE ORDERABLES Performing Organization Address [facility] Phon e Number [facility] [place] ([place]) Immunofixation (VLADIMIR), Urine (11/28/2019 11:55 AM CDT) [facility] Method Time Signature Immunofixation for [facility] [...] ?Site ID: [id number] ?Name: [facility] ?Address: [address] [place], [place] [address] [address] ?Director: Ramiro Fitzpatrick M.D. Audi Maurer MD LAB BLOOD ORDERABLES Performing Organization Address [facility] e Number [facility] [place] (WDL) (ABNORMAL) CBC (includes Differential/Platelets) (11/28/2019 11:55 AM CDT) [facility] Method Time Signature Leukocytes, Blood 5.6 [...] ID: CB ?Name: [facility] ?Address: [address] [place] [address] [place] [address] ?Director: Ramiro Fitzpatrick M.D. Audi Maurer MD LAB BLOOD ORDERABLES Performing Organization Address City/State/ZIP Code Phon e Number [facility] [place] ([place]) (ABNORMAL) Urinalysis, Complete, w/ Reflex to Culture (11/28/2019 11:55 AM CDT) [facility] Method Time Signature Color of Urine [...] ID: CB ?Name: [facility] ?Address: [address] [place] [address] [place] [address] ?Director: Ramiro Fitzpatrick M.D. Audi Maurer MD [...] ID: CB ?Name: [facility] ?Address: [address] [place] [address] [place] [address] ?Director: Ramiro Fitzpatrick M.D. Audi Maurer MD [...] 13% high er for people identified as -Turkish. eGFR, non 15 (L) > OR = 60 mL/min/1.73m2 [facility] [place] ([place]) Turkish eGFR, 18 (L) > OR = 60 [...] Performing Organization Information: ?Site ID: [id number] ?Name: [facility] ?Address: [address] [place], [place] [address] [place] [address] ?Director: Ramiro Fitzpatrick M.D. Audi Maurer MD LAB BLOOD ORDERABLES Performing Organization Address [facility] Phon e Number [facility] - [...] Performing Organization Information: ?Site ID: [id number] ?Name: [facility] ?Address: [address] [place], [place] [address] [place] [address] ?Director: Ramiro Fitzpatrick M.D. Audi Maurer MD LAB BLOOD ORDERABLES Performing Organization Address [facility] Phon e Number [facility] - [...] Comment Performing Organization Information: ?Site ID: ?Name: [facility] ?Address: [address] [place] [address] [place] [address] ?Director: Ramiro Fitzpatrick M.D. Audi Maurer MD LAB BLOOD ORDERABLES Performing Organization Address City/State/ZIP Code Phon e Number [facility] [place] ([place]) documented in this encounter Visit Diagnoses Not on filedocumented in this encounter Care Teams Forklift Supervisor Relationship Specialty Start Date End Date Eusebia Whitaker MD PCP - General Family Medicine 11/24/[address] [place] [address] documented as of this encounter
--- OUTSIDE RECORDS SUMMARY | 2022-01-04 15:47 | XMS_ITS | Encounter Summary ---
:1945 Author Organization [facility] [email or web address] Address [address] [place] [address] Phone Care Team Providers Name Role Phone Unavailable Primary Care Provider Unavailable Reason for Visit Reason Onset Date Comments Hypertension 10/07/2019 Encounter Details Date Type Department Care Team Description [facility]/07[facility]2019 [facility] Deena Hadley RN Hypertension [address] [facility] [address] [place], [place] [address] Social History Tobacco Use Types Packs/Day Years [...] whether it should be pursued of if scientist engineer is stable than perhaps continue plans the [...]
--- OUTSIDE RECORDS SUMMARY | 2022-01-04 15:47 | XMS_ITS | Encounter Summary ---
:1945 Author Organization [employer] [facility] [employer] Address [address] [place] [address] Phone Care Team Providers Name Role Phone Eusebia Whitaker MD Primary Care Provider Reason for Visit Reason Onset Date Comments Lab results 11/10/2019 Encounter Details Date Type Department Care Team Description 11/10/2019 Telephone [facility] Shahrzad Choi RN Lab results [address] [place] [address] Social History Tobacco Use Types Packs/Day Years [...] Update 11/11. I will get records from [facility] to confirm the information below. Irma called [...] First available with you is 12/11. See WIRE PHOTO OPERATOR NEWS/PA? Overbook? elephone Encounter - Audi Maurer MD [...] - 11/10/2019 4:21 PM CDT Message from help desk support that patient's daughter was asking for most [...] that the patient saw a provider at [facility] in [place] about two weeks ago and a hemoccult test was positive but nothing was done at that time. She has not seen any blood in the stool. Stool is dark butshe is taking iron supplements. She denies SOB or lightheadedness. I told her to contact the [facility] and advise on the drop in hgb [...] on filedocumented in this encounter Care Teams Instructional Resource Teacher Relationship Specialty Start Date End Date Eusebia Whitaker MD PCP - General Family Medicine 11/24/[address] [place] [address] documented as of this encounter
--- OUTSIDE RECORDS SUMMARY | 2022-01-04 15:47 | XMS_ITS | Encounter Summary ---
:1945 Author Organization [employer] Address [address] [place] [address] Phone Care Team Providers Name Role Phone Unavailable Primary Care Provider Unavailable Reason for Visit Reason Comments Med Refill Encounter Details Date Type Department Care Team Description 10/01/2019 Refill [facility] Adrian Kern MD [address] [facility] [address] [facility] [address] [place] [address] [place] [address] [phone] (Wo rk) Social History Tobacco Use Types [...]
--- OUTSIDE RECORDS SUMMARY | 2022-01-04 15:47 | XMS_ITS | Encounter Summary ---
:1945 Author Organization [employer] Physician [employer] Address [address] [place] [address] Phone Care Team Providers Name Role Phone Unavailable Primary Care Provider Unavailable Reason for Visit Reason Onset Date Comments Renal Cyst 02/20/2019 Encounter Details Date Type Department Care Team Description 02/20/2019 Telephone [facility] Deena Hadley RN Renal Cyst [address] [facility] [address] [place], [place] [address] Social History Tobacco Use Types Packs/Day Years [...] cysts. No need for follow up imaging. [employer] TherapeuticsTelephone Encounter - Deena Hadley RN - 03/11/2019 8:05 AM CST We had still not received the addended report for the CT done 02/17. The request made to [facility] was to have radiologist comment further on the renal cyst. I called again yesterday. The radiologist had dictated it but it was never transcribed and faxed. Per supervisor purification, The bilateral renal cysts are simple in appearance. No further workup is needed. Telephone Encounter - Deena Hadley RN - 02/20/2019 4:08 PM CST Per the request of Dr. Maurer, I called [facility] where pts CT abd/pelvis was done. He is looking for more comments on the renal cyst noted on the US, is it simple or complex for example. registered pharmacy technician is going to give the note [...]
--- OUTSIDE RECORDS SUMMARY | 2022-01-04 15:47 | XMS_ITS | Encounter Summary ---
:1945 Author Organization [facility] Physician [employer] Address [address] [place] [address] Phone Care Team Providers Name Role Phone Eusebia Whitaker MD Primary Care Provider Reason for Visit Reason Comments Med Refill Encounter Details Date Type Department Care Team Description 04/30/2020 Refill [facility] Audi Maurer MD [address] [facility] [address] [facility] [address] [place] [address] [place] [address] [phone] (Wo rk) Social History Tobacco Use Types [...] on filedocumented in this encounter Care Teams Legal Project Manager Relationship Specialty Start Date End Date Eusebia Whitaker MD PCP - General Family Medicine 11/24/19 [address] [place] [address] documented as of this encounter
--- OUTSIDE RECORDS SUMMARY | 2022-01-04 15:47 | XMS_ITS | Encounter Summary ---
:1945 Author Organization [employer] Physician [employer] Address [address] [place] [address] Phone Care Team Providers Name Role Phone Unavailable Primary Care Provider Unavailable Reason for Visit Reason Onset Date Comments Results 10/01/2019 Encounter Details Date Type Department Care Team Description 10/01/2019 [facility] Deena Hadley RN Results [address] [place] [address] Social History Tobacco Use Types Packs/Day Years [...]
--- OUTSIDE RECORDS SUMMARY | 2022-01-04 15:47 | XMS_ITS | Encounter Summary ---
:1945 Author Organization [employer] Physician [employer] Address [address], [place] [address] Phone Care Team Providers Name Role Phone Unavailable Primary Care Provider Unavailable Reason for Visit Reason Onset Date Comments Results 09/03/2019 Encounter Details Date Type Department Care Team Description 09/03/2019 [facility] Deena Hadley RN Results [email or web address] [place] [address] Social History Tobacco Use Types Packs/Day Years [...] for September [address] Kern at [facility]. Prep instructions were mailed to Irma. [...]
--- OUTSIDE RECORDS SUMMARY | 2022-01-04 15:47 | XMS_ITS | Clinical Summary ---
:1945 Author Organization [employer] Physician [employer] Address [address] [place] [address] Phone Care Team Providers Name Role Phone [...] 3 (moderate) 02/07/2019 Proteinuria 02/07/2019 Anemia 02/07/2019 penitentiary current use of non-steroidal anti-inflammato ameya 02/07/2019 [...] Advance Directives For more information, please contact: [phone] (Available ) Documents on File Type Date Recorded Patient Cob Sawyer Explanati on Advance Directives and Living Will Power of Shot Examiner Care Teams Sfdc Consultant Relationship Specialty Start Date End Date Eusebia Whitaker MD PCP - General Family Medicine 11/24/[address] [address]
--- OUTSIDE RECORDS SUMMARY | 2022-01-04 15:47 | XMS_ITS | Encounter Summary ---
:1945 Author Organization [facility] Address [address] [place] [address] Phone Care Team Providers Name Role Phone Unavailable Primary Care Provider Unavailable Encounter Details Date Type Department Care Team Description 08/08/2019 Office Visit [facility] Gisela Maurer MD Chronic kidney disease stage 4 (CMS-HCC) (Primary Dx); [facility] [address] Isolated proteinuria; [address] Essential (primary) hypertension; [address] Hyperlipidemia, not otherwise specified; [place] [address] [place], [place] Anemia in chronic kidney dis ease [phone] [address] Social History Tobacco Use Types Packs/Day Years [...] mg BID ( monitor HR) Labs at [place] in 2 wks. If stable / worse, pt will come back to [facility] and plan on getting a renal biopsy done. 2) Proteinuria: see above. 3) Anemia: Hgb 10.1 on 08/01/19. Iron sat 22% in Feb. Check with next lab. 4) intermediate manager (current) use of non-steroidal anti-inflammatories (NSAID): now [...] y.o. female with PMH of female from [facility] , whom I had initially seen [...] - HBA1C 5.6-5.8 Pt is currently in [place] with her daughter. Reports she is doing [...] imaging studies were reviewed. Audi Maurer MD [facility] [phone] No orders of the defined types were placed in this encounter. documented in this encounter Plan of Treatment Not on filedocumented as of this encounter Visit Diagnoses Diagnosis Chronic kidney disease stage 4 (CMS-HCC) - Primary Isolated proteinuria Essential (primary) hypertension Hyperlipidemia, not otherwise specified Anemia in chronic kidney disease documented in this encounter
--- OUTSIDE RECORDS SUMMARY | 2022-01-04 15:48 | XMS_ITS | Encounter Summary ---
:1945 Author Organization [facility] Address [address] [place] [address] Care Team Providers Name Role Phone Unavailable Primary Care Provider Unavailable Encounter Details Date Type Department Care Team Description 10/19/2021 Documentation Division of Nephrology and Jenna Neri APRN, Hypertension, [facility] C[facility] [place], in [place], [facility] [address] [place], [place] [address] [place] [address] [place] [address] [phone] Social History Tobacco Use Types Packs/Day Years [...] currently being maintained in in-center hemodialysis at [facility] Dialysis Unit at [place], [place] on a Sunday, and Saturdayschedule. She has medical history includes hypertension, COPD, peripheral arterial disease, chronic right heart failure and diabetes mellitus type 2 (diet control). She is dialyzing through her right IJ tunnel. She is scheduled for AV graft of left brachial artery to axillary vein graft placement by Dr. Vidal at [facility] in [facility] on November 04 2021. She feels well. [...]
--- OUTSIDE RECORDS SUMMARY | 2022-01-04 15:48 | XMS_ITS | Encounter Summary ---
:1945 Author Organization [facility] Address [address] [place] [address] Phone Care Team Providers Name Role Phone Unavailable Primary Care Provider Unavailable Encounter Details Date Type Department Care Team Description 02/07/2019 Orders Only [facility] Audi Maurer MD [address] [facility] [address] [facility] [address] [place] [address] [place] [address] [phone] (Wo rk) Social History Tobacco Use Types [...] ID: CB ?Name: [facility] ?Address: [address] [place] [address] [place] [address] ?Director: Ramiro Fitzpatrick M.D. Audi Maurer MD [...] (D2,D3), LC/MS/MS is recomm ended: order code [id number] (patients >2yrs). For more information on this test, go to : http://education.Spowit.[employer]/fa q/HOJ671 (This link is being provided for informational/educational purposes only. ) Specimen Anatomical Collection Method Collection Time Receive d Time (Source) Location / / Volume Laterality 02/07/2019 9:20 AM 9 9:25 CDT AM CDT Resulting Agency Comment Performing Organization Information: ?Site ID: CB ?Name: [facility] ?Address: [address] [place] [address] [place]ña[place], [place] [address] ?Director: Ramiro Fitzpatrick M.D. Audi Maurer MD [...] ID: CB ?Name: [facility] ?Address: [address] [place], [place] [address], [place] [address] ?Director: Ramiro Fitzpatrick M.D. Audi Maurer MD LAB BLOOD ORDERABLES Performing Organization Address [facility]/ZIP Code Phon e Number [facility] - [...] ?Site ID: ?Name: Alph[facility] Gardiner ?Address: [address] [place], [place] [address], [place] [address] ?Director: Ramiro Fitzpatrick M.D. Audi Maurer MD LAB BLOOD ORDERABLES Performing Organization Address [facility]/ZIP Code Phon e Number [facility] - [...] t est for HCV RNA (test code 16274) is suggested. For additional information please refer to http://education.Spowit.[employer]/fa q/ZWQ38f0 (This link is being provided for informa tional/ educational purposes only.) Specimen Anatomical Collection Method Collection Time Receive d Time (Source) Location / / Volume Laterality 02/07/2019 9:20 AM 9 9:25 CDT AM CDT Resulting Agency Comment Performing Organization Information: ?Site ID: CB ?Name: [facility] ?Address: [address] [place], [place] [address]jerzy [place] [address] ?Director: Ramiro Fitzpatrick M.D. Audi Maurer MD LAB BLOOD ORDERABLES Performing Organization Address [facility]/ZIP Code Phon e Number [facility] - [...] ID: CB ?Name: [facility] ?Address: [address] [place], [place] [address]jerzy [place], [place] [address] ?Director: Ramiro Fitzpatrick M.D. Audi Maurer MD LAB BLOOD ORDERABLES Performing Organization Address [facility] Code Phon e Number [facility] - [...] ID: CB ?Name: [facility] ?Address: [address] [place], [place] [address]jer[place], [place] [address] ?Director: Ramiro Fitzpatrick M.D. Audi Maurer MD LAB BLOOD ORDERABLES Performing Organization Address City/State/ZIP Code Phon e Number [facility] ANCA Screen w/ Vasculitides (MPO, PR3) (02/07/2019 9:20 AM CDT) [facility] Method Time Signature Myeloperoxidase Ab, <1.0 AI [facility] - Serum [place] ([place]) Comment: ? Value ?Interpretation ? ----- [...] ?? Antibody Detected ? Autoantibodies to proteinase-3 (KS-3) ar e accepted as characteristic for granulomatosis with p olyangiitis (GPA, Gianna's), and are detectable in 95% of the histologically proven cases. The cytopla smic IFA pattern, (c-ANCA), is based largely on a utoantibody to KS-3 which serves as the primary antigen . These autoantibodies are present in acti ve disease. Specimen Anatomical Collection Method Collection Time Receive d Time (Source) Location / / Volume Laterality 02/07/2019 9:20 AM 9 9:25 CDT AM CDT Resulting Agency Comment Performing Organization Information: ?Site ID: CB ?Name: [facility] Gard[facility] ?Address: [address] [place] [address] [place] [address] ?Director: Ramiro Fitzpatrick M.D. Audi Maurer MD LAB BLOOD ORDERABLES Performing Organization Address City/State/ZIP Code Phon e Number [facility] [place] ([place]) (ABNORMAL) [place] and Lambda Free Light Chains, Qn, Serum (02/07/2019 9:20 AM CDT) athologist Signature [place] light 56.2 (H) 3.3 - 19.4 [facility] - chains, free, mg/L [place] Serum (WDL) Lambda light 28.8 (H) 5.7 - 26.3 [facility] - chains, free, mg/L [place] Serum/Plasma (WDL) [place] light 1.95 (H) 0.26 - [facility] - [...] ID: CB ?Name: [facility] Gard[facility] ?Address: [address] [place] [address] [place] [address] ?Director: Ramiro Fitzpatrick M.D. Audi Maurer MD LAB BLOOD ORDERABLES Performing Organization Address City/[facility]/ZIP Code Phon e Number [facility] - [...] Organization Information: ?Site ID: CB ?Name: [facility] ?Address: [address] [place], [place] [address] [address] ?Director: Ramiro Fitzpatrick M.D. Audi Maurer MD LAB BLOOD ORDERABLES Performing Organization Address [facility] Code Phon e Number [facility] [place] ([place]) Immunofixation, Serum (02/07/2019 9:20 AM CDT) [facility] gist Method Time Signature Immunofixation for [facility] - Serum/Plasma [place] (WDL) Comment: No monoclonal immunoglobulin detected. Specimen Anatomical Collection Method Collection Time Receive d Time (Source) Location / / Volume Laterality 02/07/2019 9:20 AM 9 9:25 CDT AM CDT Resulting Agency Comment Performing Organization Information: ?Site ID: CB ?Name: [facility] ?Address: [address] [place] [address] [place] [address] ?Director: Ramiro Fitzpatrick M.D. Audi Maurer MD LAB URINE ORDERABLES Performing Organization Address [facility] Phon e Number [facility] [place] [...] AC-0: Negative International Consensus on KOMAL Patterns (https://doi.org/10.1515/pvty-1575-0568) For additional information, please refer to http://education.Nosopharm.[employer]/fa q/UKH937 (This link is being provided for informa tional/ educational purposes only.) ?? Specimen Anatomical Collection Method Collection Time Receive d Time (Source) Location / / Volume Laterality 02/07/2019 9:20 AM 9 9:25 CDT AM CDT Resulting Agency Comment Performing Organization Information: ?Site ID: CB ?Name: [facility] ?Address: [address] [place], [place] [address] [address] ?Director: Ramiro Fitzpatrick M.D. Audi Maurer MD LAB BLOOD ORDERABLES Performing Organization Address City/State/ZIP Code Phon e Number [facility] [place] ([place]) Immunofixation, Urine (02/07/2019 9:20 AM CDT) [facility] Method Time Signature Immunofixation for [facility] [...] Performing Organization Information: ?Site ID: CB ?Name: [facility] ?Address: [address] [place] [address] [employer] [address] ?Director: Ramiro Fitzpatrick M.D. Audi Maurer MD LAB BLOOD ORDERABLES Performing Organization Address City/State/ZIP Code Phon e Number [facility] [place] ([place]) (ABNORMAL) CBC (includes Differential/Platelets) (02/07/2019 9:20 AM CDT) [facility] Method Time Signature Leukocytes, Blood 8.5 [...] ID: CB ?Name: [facility] ?Address: [address] [place] [address] [place]añ[place] [address] ?Director: Ramiro Fitzpatrick M.D. Audi Maurer MD LAB BLOOD ORDERABLES Performing Organization Address City/State/ZIP Code Phon e Number [facility] [place] ([place]) (ABNORMAL) Urinalysis, Complete, w/ Reflex to Culture (02/07/2019 9:20 AM CDT) [facility] Method Time Signature Color of Urine [...] Organization Information: ?Site ID: CB ?Name: [facility] ?Address: [address] [place] [address] [place] [address] ?Director: Ramiro Fitzpatrick M.D. Audi Maurer MD [...] 13% high er for people identified as -Spanish. eGFR, non 24 (L) > OR = 60 mL/min/1.73m2 [facility] [place] ([place]) Spanish eGFR, 28 (L) > OR = 60 [...] CB ?Name: [facility] ?Address: [address] [place], [place] [address] [address] ?Director: Ramiro Fitzpatrick M.D. Audi Maurer MD LAB BLOOD ORDERABLES Performing Organization Address [facility] Phon e Number [facility] [place] [...] ID: CB ?Name: [facility] ?Address: [address] [place] [address] [place]añ[place] [address] ?Director: Ramiro Fitzpatrick M.D. Audi Maurer MD LAB BLOOD ORDERABLES Performing Organization Address [facility] Phon e Number [facility] [place] [...] Organization Information: ?Site ID: CB ?Name: [facility] ?Address: [address] [place] [address] [place] [address] ?Director: Ramiro Fitzpatrick M.D. Audi Maurer MD LAB BLOOD ORDERABLES Performing Organization Address [facility] Code Phon e Number [facility] - [...] Organization Information: ?Site ID: CB ?Name: [facility] [facility] ?Address: [address] [place], [place] [address] [address] ?Director: Ramiro Fitzpatrick M.D. Audi Maurer MD LAB BLOOD ORDERABLES Performing Organization Address City/[facility]/ZIP Code Phon e Number [facility] [place] ([place]) documented in this encounter Visit Diagnoses Not on filedocumented in this encounter
--- OUTSIDE RECORDS SUMMARY | 2022-01-04 15:48 | XMS_ITS | Encounter Summary ---
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 Stage Renal Disease [place] 200 [facility] Dialysis Dependent (HCC) [address] [place] [address] [phone] (Wo rk) Social History Tobacco Use Types [...] 2, PCR, V (11/02/2021 11:08 AM CDT) [facility] Method Time Signature SARS-Coronavi Undetected Undetected 11/02/2021 [facility] vanessa-2, PCR 2:48 PM CDT Comment: SARS-CoV-2 RNA absent. ?? ----ADDITIONAL INFORMATION---- This RT-PCR test using the Xpert Xpress SARS-CoV-2/Flu/RSV assay ([employer] performed on the Valuation App rt DX systems has received Emergency Use Authorization (EU A) by the U.S. Food and Drug Administration. Performanc e characteristics were verified by [facility] inic in a manner consistent with CLIA requirements . Fact sheets for this Emergency Use Autho rization (EUA) assay can be found at the following link s: For Healthcare Providers: https://www.fda.gov/media/404866/downloa d For Patients: https://www.fda.gov/media/847206/downloa d Specimen Source Nasopharyngeal Swab 11/02/2021 1:3 0 PM CDT [facility] Specimen Anatomical Collection Method Collection Time Receive d Time (Source) Location / / Volume Laterality Varies 11/02/2021 11:08 11/02/2021 1:30 AM CDT PM CDT Kyler Ibarra LAB MICROBIOLOGY - GENERAL O RDERABLES Performing Organization Address City/State/ZIP Code Phon e Number [facility] [address] [place] [address] [place] [address] System in [place] [address] documented in this encounter Visit Diagnoses Diagnosis Chronic Failure Renal End Stage Renal Di sease Dialysis Dependent (HCC) documented in this encounter Additional Health Concerns Infection Onset Date Last Indicated Resolved Time COVID19 Pending 11/01/2021 11/02/2021 11/02/2021 1:30 PM CDT documented as of this encounter
--- OUTSIDE RECORDS SUMMARY | 2022-01-04 15:48 | XMS_ITS | Encounter Summary ---
:1945 Author Organization [facility] Address [address] [place] [address] Care Team Providers Name Role Phone Unavailable Primary Care Provider Unavailable Reason for Visit Reason Comments phone call Encounter Details Date Type Department Care Team Description 01/04/2022 Clinical Communication Division of Nephrology Randal Weeks phone call and Hypertension in C Melvin Bolden [place], [place] [address] [facility] [address] [place] [address] [phone] Social History Tobacco Use Types Packs/Day Years Used Date Smoking Tobacco: Never Assessed Sex Assigned at Date Recorded Not on file documented as of this encounter Miscellaneous Notes Telephone Encounter - Angelique Yadav - 01/04/2022 2:[address] Campo, Dr. Aleman from [facility] called asking for you to call him regarding this patient. His number is mobile. Thank you, Angelique documented in this encounter Plan of Treatment Scheduled Procedures Name Priority Associated Diagnoses Date/Time PLACEMENT ARTERIOVENOUS GRAFT UPPER Chronic Kidn ey Disease Stage 5 EXTREMITY Glomerular Filtration Rate Less Than 15 (HCC) documented as of this encounter Visit Diagnoses Not on filedocumented in this encounter
--- OUTSIDE RECORDS SUMMARY | 2022-01-04 15:48 | XMS_ITS | Encounter Summary ---
:1945 Author Organization [facility] Address [address] [place] [address] Care Team Providers Name Role Phone Unavailable Primary Care Provider Unavailable Reason for Referral Outpatient (Routine) - Closed Specialty Diagnoses / Procedures Referred By Contact Refer red To Contact Radiology Diagnoses Complication Dialysis Catheter Initial Jenna Neri APRN, C.N.P. [facility] Procedures IR Dialysis / High Flow Catheter Exchange [address] [place], [place] [address] Referral ID Status Reason Start Date Expiration Date Visits Requ ested Visits Authorized [id number] Closed 10/19/2021 10/19/2022 1 1 Reason for Visit Outpatient (Routine) - Closed Specialty Diagnoses / Procedures Referred By Contact Refer red To Contact Radiology Diagnoses Complication Dialysis Catheter Initial Jenna Neri APRN, C.N.P. [facility] Procedures IR Dialysis / High Flow Catheter Exchange [address] [place] [address] Referral ID Status Reason Start Date Expiration Date Visits Requ ested Visits Authorized [id number] Closed 10/19/2021 10/19/2022 1 1 Encounter Details Date Type Department Care Team Description 10/21/2021 Hospital Encounter Department of Jenna Neri Complica tion Dialysis Radiology in [place], C.N.P. Catheter Initial [place], [place] [address] [place] [phone] Social History Tobacco Use Types Packs/Day Years [...] through Care Everywhere.Your High-Flow Central Venous Catheter (Haitian)documented in this encounter Medications at Time of [...] tunneled dialysis catheter exchange done today in [facility]. Condition at Transfer stable OBJECTIVE [...] jugular dialysis catheter exchange done today in [facility]. Postprocedure, patient had moderate amount of bleeding to the puncture site, saturating dressing. Dressing removed, hemostatic agents D stat and Quick clot, Hemostasis obtained, to be changed tomorrow at dialysis. Plan: Pt ready for discharge accompanied by her daughter. Follow-up with dialysis as instructed. For any questions or concerns regarding this patient please page [facility] Interventional Radiology FINANCIAL ADVISOR/PA at [phone] Sunday through Sunday 7 a.m. to 5 p.m. or [facility] Inter[facility] Radiology on-callresident at [phone] after 5 p.m. and on weekends. Mine [...] and dr aped in sterile fashion. Fluoroscopic mercerizer machine operator image demonstrates a tunneled dialysis cathete r in place. Using lidocaine 1% for local anesthesia, blunt dissection was performed freeing the cat heter cuff. Catheter was removed in its entirety over two stiff Glidewires. A 9-Sol[place] Islander Brite Tip s azul placed, and a [...] and dr aped in sterile fashion. Fluoroscopic mercerizer machine operator image demonstrates a tunneled dialysis cathete r in place. Using lidocaine 1% for local anesthesia, blunt dissection was performed freeing the cat heter cuff. Catheter was removed in its entirety over two stiff Glidewires. A 9-Sol[place] Islander Brite Tip s azul placed, and a [...]
--- OUTSIDE RECORDS SUMMARY | 2022-01-04 15:48 | XMS_ITS | Encounter Summary ---
:1945 Author Organization [facility] Address [address] [place] [address] Care Team Providers Name Role Phone Unavailable Primary Care Provider Unavailable Reason for Referral Outpatient (Routine) - Closed Specialty Diagnoses / Procedures Referred By Contact Refer red To Contact Radiology Diagnoses Complication Dialysis Catheter Initial Jenna Neri APRN, C.N.P. [facility] Procedures IR Dialysis / High Flow Catheter Exchange [address] [place] [address] Referral ID Status Reason Start Date Expiration Date Visits Requ ested Visits Authorized [id number] Closed 10/19/2021 10/19/2022 1 1 Encounter Details Date Type Department Care Team Description 10/19/2021 Orders Only Division of Nephrology Jenna Neri, Compl ication Dialysis and Hypertension, GLADYS, C.N.P. Catheter Initial [facility] [place], in 200 [facility] (Primary Dx) [place], [place] [address] [place] [address] [place], [place] [phone] [address] (Work) [phone] Social History Tobacco Use Types Packs/Day Years [...] and dr aped in sterile fashion. Fluoroscopic mammography technologist image demonstrates a tunneled dialysis cathete r in place. Using lidocaine 1% for local anesthesia, blunt dissection was performed freeing the cat heter cuff. Catheter was removed in its entirety over two stiff Glidewires. A 9-Tuvaluan Brite Tip s azul placed, and a [...] and dr aped in sterile fashion. Fluoroscopic mammography technologist image demonstrates a tunneled dialysis cathete r in place. Using lidocaine 1% for local anesthesia, blunt dissection was performed freeing the cat heter cuff. Catheter was removed in its entirety over two stiff Glidewires. A 9-Tuvaluan Brite Tip s azul placed, and a [...]
--- OUTSIDE RECORDS SUMMARY | 2022-01-04 15:48 | XMS_ITS | Encounter Summary ---
:1945 Author Organization [facility] Address [address] [place] [address] Care Team Providers Name Role Phone Unavailable Primary Care Provider Unavailable Encounter Details Date Type Department Care Team Description 10/19/2021 Documentation Division of Nephrology and Stoney Shelton, Hypertension in [facility] [address] [facility] [address] [place] [address] [phone] Social History Tobacco Use Types Packs/Day Years [...] arterial pressure during dialysis. She dialyzes at [facility] on a Sunday, and Sunday schedule. DIABETES: DM2: Diet controlled ANTICOAGULATION: None. LABORATORY RESULTS: Current Labs in [facility]. IMPRESSION/REPORT/PLAN SPECIFIC PATIENT INSTRUCTIONS: [facility] October [facility] at 09:30 am for a 10:30 am procedure. You must have a copper etcher to drive you home due to the [...] to three fourths of the day in [place] for this procedure. There is generally some waiting involved prior to the procedure. Post Access Instructions: Resume your usual dialysis schedule. Appointment scheduled via [place] at Interventional Radiology. Daughter was informed of the above instructions by phone today. She requested a call after 4 pm and a faxed appointment guide has been sent to [place] for secondary review. documented in this encounter Plan of Treatment Scheduled Procedures Name Priority Associated Diagnoses Date/Time PLACEMENT ARTERIOVENOUS GRAFT UPPER Chronic Kidn ey Disease Stage 5 EXTREMITY Glomerular Filtration Rate Less Than 15 (HCC) documented as of this encounter Visit Diagnoses Not on filedocumented in this encounter
--- OUTSIDE RECORDS SUMMARY | 2022-01-04 15:48 | XMS_ITS | Clinical Summary ---
:1945 Author Organization [facility] Address [address] [place] [address] Care Team Providers Name Role Phone Unavailable Primary Care Provider Unavailable Source Comments Patient records contain information from all sites at [facility]. For routine questions regarding patient records, call [phone] during business hours, M-F 8:00 AM - 5:00 PM Central Time. Record requests for emergency care only can be directed to [phone] at any time.[facility] Allergies No known active allergies Medications [...] Encounters Date Type Specialty Care Team Description 01/04/2022 Clinical Nephrology and [place], phone call Communication Hypertension Tmo Glasgow Jr.OGatito 11/02/2021 Lab General Surgery Kyler Vidal, Chronic Urban lure Renal M.B.B.S. End Stage Renal Disease Dialysis Depend ent ([facility]) 10/21/2021 Hospital Encounter Radiology Jenna Neri, Complicat ion Dialysis LENS GRINDING MACHINE OPERATOR, C.N.P. Catheter Initia l 10/19/2021 Documentation Dialysis Jenna Neri P, LENS GRINDING MACHINE OPERATOR, C.N.P. 10/19/2021 Documentation Nephrology and [place] Hypertension Emilia Nguyen RShaggy 10/19/2021 Orders Only Dialysis Jenna Neri, Complication Di alysis LENS GRINDING MACHINE OPERATOR, C.N.P. Catheter Initia l (Primary Dx) 10/17/2021 Comprehensive Visit Vascular Surgery [facility] Kidney Disease Stage 5 Glomerular Filtration Rate Less Than 15 ([facility]) (Primary Dx); Randal Whitehead Jr., Anemia Of [facility] myrna Renal Disease; D.O. Hyperparathyroidism Renal Secondary ([facility] ); Kyler Vidal, Apnea Sleep Ob structive M.B.B.S. 10/17/2021 Hospital Encounter Radiology Micky, Chronic F ailure Renal Randal Whitehead Jr., End Stage Holley l Disease D.O. Dialysis Depend ent ([facility]) 10/17/2021 Nurse Only Nephrology and M[place], Hypertension Randal Whitehead Jr., D.OJusto Shukla, R.N. 10/17/2021 Hospital Encounter Radiology [place], Chronic K idney Disease Stage 5 Glomerular Filtration Rate Less Than 15 (HCC); Randal Whitehead Jr., Anemia Of Body Care Manager myrna Renal Disease; D.OGatito Hyperparathyroi dism Renal Secondary (HCC); Apnea Sleep Obs tructive 10/17/2021 Documentation Nephrology and Justo Sauer, Hypertension R.N. 10/17/2021 Orders Only Nephrology and Justo Sauer, Chronic Fail ure Renal Hypertension R.N. End Stage Renal Disease Dialysis Depend ent (HCC) (Primary Dx) 10/17/2021 Orders Only Radiology Tiffanie Reynoso APRN, C.N.P. 10/17/2021 Orders Only Dialysis Justo Sauer, Chronic Failur e Renal R.N. End Stage Renal Disease Dialysis Depend ent (HCC) (Primary Dx) from Last 3 Months Social History Tobacco [...] Blood Pressure 1945 Check / Re-check Urine Albumin 1945 Hepatitis B Vaccines (1 of 3 - 2003 Risk 3-dose series) Zoster Vaccines (1 of 2) 11/17/2015 09/22/2015 Creatinine Level 12/07/2020 12/08/2019, 12/07/2019, 12/06/2019, Additional history exists COVID-19 Vaccine (4 - Booster for 03/17/2021 01/20/2021, , Pfizer series) 05/11/2020 Depression Screening (Annual 04/09/2021 PHQ-2) Influenza Vaccine (#1) 2022 01/12/2021, 01/20/2020, 01/16/2019, Additional history exists Potassium Level 11/25/2022 11/25/2021, 11/19/2021, 11/13/2021, Additional history exists Sodium Level 11/25/2022 11/25/2021, 12/08/2019, 12/07/2019, Additional history exists DTaP,Tdap,and Td [...] Hyperparathyroidism Renal Secondary (HCC) Apnea Sleep Obstructive from Last 3 Months Results SARS Coronavirus 2, PCR, V (11/02/2021 11:08 AM CDT) Patholo gist Method Time Signature SARS-Coronavi Undetected Undetected 11/02/2021 OWAT vanessa-2, PCR 2:48 PM CDT Comment: SARS-CoV-2 RNA absent. ?? ----ADDITIONAL INFORMATION---- This RT-PCR test using the Xpert Xpress SARS-CoV-2/Flu/RSV assay ([employer] performed on the [employer] rt DX systems has received Emergency Use Authorization (EU A) by the U.S. Food and Drug Administration. Performanc e characteristics were verified by [facility] in a manner consistent with CLIA requirements . Fact sheets for this Emergency Use Autho rization (EUA) assay can be found at the following link s: For Healthcare Providers: https://www.fda.gov/media/640546/downloa d For Patients: https://www.fda.gov/media/731104/downloa d Specimen Source Nasopharyngeal Swab 11/02/2021 1:3 0 PM CDT OWAT Specimen Anatomical Collection Method Collection Time Receive d Time (Source) Location / / Volume Laterality Varies 11/02/2021 11:08 11/02/2021 1:30 AM CDT PM CDT Kyler Ibarra LAB MICROBIOLOGY - GENERAL O RDERABLES Performing Organization Address City/State/ZIP Code Phon e Number [facility]- [address] [place] [address] [facility] [place] [address] System in [place] [address] [facility] IR Dialysis / High Flow Catheter Exchange [...] and indwelling catheter were prepared and dr munguia in sterile fashion. Fluoroscopic adult school counselor image demonstrates a tunneled dialysis cathete r in place. Using lidocaine 1% for local anesthesia, blunt dissection was performed freeing the cat heter cuff. Catheter was removed in its entirety over two stiff Glidewires. A 9-Argentine Brite Tip s azul placed, and a [...] and dr aped in sterile fashion. Fluoroscopic adult school counselor image demonstrates a tunneled dialysis cathete r in place. Using lidocaine 1% for local anesthesia, blunt dissection was performed freeing the cat heter cuff. Catheter was removed in its entirety over two stiff Glidewires. A 9-Argentine Brite Tip s azul placed, and a [...] sed for predialysis purposes Randal Weeks Jr., D.OGatito IMG US PROCEDURES US Upper Extremity Left [...] Randal Weeks Jr., D.O. IMG US PROCEDURES from Last 3 Months Insurance Payer Benefit Plan / Subscriber ID Effective Dates Phone Addre ss Type Group [facility] [id number] 2021-Present [phone] [address] [place] [address]
--- OUTSIDE RECORDS SUMMARY | 2022-01-04 15:49 | XMS_ITS | Encounter Summary ---
:1945 Author Organization [facility] Address [address] [place] [address] Care Team Providers Name Role Phone Unavailable Primary Care Provider Unavailable Encounter Details Date Type Department Care Team Description 09/06/2021 Orders Only Division of Nephrology and Shlomo Weeks Hypertension in [place], ., D.O. [place] [address] [facility] [address] [place] [address] [phone] (Wo rk) Social History Tobacco Use Types [...]
--- OUTSIDE RECORDS SUMMARY | 2022-01-04 15:49 | XMS_ITS | Encounter Summary ---
:1945 Author Organization [facility] Address [address] [place] [address] Care Team Providers Name Role Phone Unavailable Primary Care Provider Unavailable Reason for Visit Appointment Request (Routine) - Closed Specialty Diagnoses / Procedures Referred By Contact Refer red To Contact Nephrology and Hypertension Referral ID Status Reason Start Date Expiration Date Visits Requ ested Visits Authorized [id number] Closed 11/04/2020 11/04/2021 1 1 Encounter Details Date Type Department Care Team Description 11/10/2020 External Outreach Division of Wanda Weeksey Disease Stage 5 Glomerular Filtration Rate Less Than 15 (HCC) (Primary Dx); Nephrology and Randal Whitehead Jr., Hypertension And Chronic Kidney Disease Stage 5 (HCC); Hypertension in D.O. Anemia Of Chronic Renal Disease; [place], [place] [address] [facility] Osteodystrophy Renal; [address] [place], [place] Diabetes Mellitus Type 2 (HC C) [place] [address] [phone] Social History Tobacco Use Types Packs/Day Years Used Date Smoking Tobacco: Never Assessed Sex Assigned at Date Recorded Not on file documented as of this encounter Progress Notes Randal Weeks Jr., D.O. - 11/10/2020 11:00 AM CDT Please see scanned in note under document viewer tab for the [facility] [place] outreach visit from this date. documented in [...]
--- OUTSIDE RECORDS SUMMARY | 2022-01-04 15:49 | XMS_ITS | Encounter Summary ---
:1945 Author Organization [facility] Address [address] [place] [address] Care Team Providers Name Role Phone Unavailable Primary Care Provider Unavailable Reason for Visit Appointment Request (Routine) - Closed Specialty Diagnoses / Procedures Referred By Contact Refer red To Contact Nephrology and Hypertension Referral ID Status Reason Start Date Expiration Date Visits Requ ested Visits Authorized [id number] Closed 11/18/2020 11/18/2021 1 1 Encounter Details Date Type Department Care Team Description 12/08/2020 External Outreach Division of Wanda Weeks Ki dney Disease Stage 5 Glomerular Filtration Rate Less Than 15 (HCC) (Primary Dx); Nephrology and Randal Whitehead Jr., Hypertension And Chronic Kidney Disease Stage 5 (HCC); Hypertension in D.O. Anemia Of Chronic Renal Disease; [place], [place] [address] [facility] Osteodystrophy Renal; [address] [place], [place] Diabetes Mellitus Type 2 (HC C); [place] [address] Apnea Sleep Obstructive [address] [phone] Social History Tobacco Use Types Packs/Day Years Used Date Smoking Tobacco: Never Assessed Sex Assigned at Date Recorded Not on file documented as of this encounter Progress Notes Randal Weeks Jr., D.O. - 12/08/2020 11:00 AM CDT Please see scanned in note under document viewer tab for the [facility] [place] outreach visit from this date. documented in [...]
--- OUTSIDE RECORDS SUMMARY | 2022-01-04 15:49 | XMS_ITS | Encounter Summary ---
:1945 Author Organization [facility] Address [address] [place] [address] Care Team Providers Name Role Phone Unavailable Primary Care Provider Unavailable Reason for Referral Outpatient (Routine) - Closed Specialty Diagnoses / Procedures Referred By Contact Candi arnold To Contact Radiology Diagnoses Chronic Kidney Disease Stage 5 Glomerular Filtration Rate Less Than 15 (HCC) Hypertension And Chronic Kidney Disease Stage 5 (HCC) Hyperparathyroidism Renal Secondary (HCC) Diabetes Mellitus Type 2 (HCC) Randal Weeks Jr., [facility] Chronic Right Heart Failure (HCC) Apnea Sleep Obstructive Proteinuria D.O. Procedures IR Dialysis / High Flow Catheter Placement [address] [place] [address] Referral ID Status Reason Start Date Expiration Date Visits Requ ested Visits Authorized [id number] Closed 06/07/2021 06/07/2022 1 1 FURNACE OPERATOR Reason for Visit Appointment Request (Routine) - Closed Specialty Diagnoses / Procedures Referred By Contact Candi arnold To Contact Nephrology and Hypertension Referral ID Status Reason Start Date Expiration Date Visits Requ ested Visits Authorized [id number] Closed 05/20/2021 05/20/2022 1 Encounter Details Date Type Department Care Team Description 06/07/2021 External Division of Micky Chronic Kidney Disease Stage 5 Glomerular Filtration Rate Less Than 15 (HCC) (Primary Dx); Outreach Nephrology and Randal Whitehead Jr., Hypertension And Chronic Kidney Disease Stage 5 (HCC); Hypertension in D.O. Hyperparathyroidism Renal Secondary (HCC ); [address] Diabetes Mellitus Type 2 (HCC); [place], [place] Chronic Right Heart Failure (HCC); [address] [place] [address] Apnea Sleep Obstructive; [place], [place] [phone] Proteinuria [address] (Work) [phone] Social History Tobacco Use Types Packs/Day Years Used Date Smoking Tobacco: Never Assessed Sex Assigned at Date Recorded Not on file documented as of this encounter Progress Notes Randal Weeks Jr., D.O. - 06/07/2021 10:00 AM CST Please see scanned in note under document viewer tab for the [facility] [place] outreach visit from this date. She is [...] been in contact with our colleagues from [facility] in [place], and our social work team, we will [...] a prolonged process up to this point. FURNACE OPERATOR documented in this encounter Plan of Treatment Scheduled Procedures Name Priority Associated Diagnoses Date/Time PLACEMENT ARTERIOVENOUS GRAFT UPPER Chronic Kidn ey Disease Stage 5 EXTREMITY Glomerular Filtration Rate Less Than 15 (HCC) documented as of this encounter Results IR Dialysis / High Flow Catheter Placement (06/14/2021 12:34 PM ARC FURNACE OPERATOR) Anatomical Region Laterality Modality Body, Vascular Interventional RST LOS, Vascular N/A X-Ray Angiography Interventional ARZ LOS, Vascular Interventional FLA LOS Specimen (Source) Anatomical Collection Method Collection Time Re ceived Time Location / / Volume Laterality 06/14/2021 1:22 PM ARC FURNACE OPERATOR Impressions 06/14/2021 1:27 PM ARC FURNACE OPERATOR Placement of a tunneled right IJ dialysis catheter. Tip at the right atrium. Ready for use. EP Narrative 06/14/2021 1:27 PM ARC FURNACE OPERATOR EXAM: IR DIALYSIS / HIGH FLOW CATHETER [...]
--- OUTSIDE RECORDS SUMMARY | 2022-01-04 15:49 | XMS_ITS | Encounter Summary ---
:1945 Author Organization [facility] Address [address] [place] [address] Care Team Providers Name Role Phone Unavailable Primary Care Provider Unavailable Reason for Visit Outpatient (Routine) - Closed Specialty Diagnoses / Procedures Referred By Contact Refer red To Contact Nephrology and Diagnoses Chronic Kidney Disease Stage 5 Glomerular Filtration Rate Less Than 15 (HCC) Anemia Of Chronic Renal Disease Hyperparathyroidism Renal Secondary (HCC) Apnea Sleep Obstructive Randal Weeks [facility] Hypertension / Dialysis , D.OGatito [address] [place] [address] Referral ID Status Reason Start Date Expiration Date Visits Requ ested Visits Authorized [id number] Closed 09/17/2021 09/17/2022 1 1 Encounter Details Date Type Department Care Team Description 10/17/2021 Comprehensive Visit Division of Brea Weeks Jr., D.O. [address] [place] [address] Chronic Kidney Disease Stage 5 Glomerula r Filtration Rate Less Than 15 (HCC) (Primary Dx); Vascular and Kyler Vidal M.B.B.S. [address] [place] [address] Anemia Of Chronic Renal Disease; Endovascular Hyperparathyroi dism Renal Secondary (HCC); Surgery in Apnea [place] [address] [place] [address] Social History Tobacco Use Types [...]
--- OUTSIDE RECORDS SUMMARY | 2022-01-04 15:49 | XMS_ITS | Encounter Summary ---
:1945 Author Organization [facility] Address [address] [place] [address] Care Team Providers Name Role Phone Unavailable Primary Care Provider Unavailable Encounter Details Date Type Department Care Team Description 08/01/2021 Orders Only Department of Nephrology in [facility] Dave Whitehead Jr.[place], [place] D.O. [address] [place] [address] [place], [place] [phone] (Wo rk) Social History Tobacco Use Types [...]
--- OUTSIDE RECORDS SUMMARY | 2022-01-04 15:49 | XMS_ITS | Encounter Summary ---
:1945 Author Organization [facility] Address [address] [place] [address] Care Team Providers Name Role Phone Unavailable Primary Care Provider Unavailable Reason for Referral Outpatient (Routine) - Closed Specialty Diagnoses / Procedures Referred By Contact Refer red To Contact Nephrology and Diagnoses Chronic Failure Renal End Stage Renal Disease Dialysis Dependent (HCC) Randal Weeks [facility] Hypertension Melvin Bolden [address] [place] [address] Referral ID Status Reason Start Date Expiration Date Visits Requ ested Visits Authorized [id number] Closed 09/19/2021 09/19/2022 1 1 Encounter Details Date Type Department Care Team Description 09/19/2021 Orders Only Division of Nephrology Emilia Shelton , Chronic Failure Renal and Hypertension in R.N. End Stage Renal [place], [place] [address] [facility] Disease Dialysis [address] [place], [place] Dependent (HCC) [place] [address] (Primary Dx) [address] [phone] Social History Tobacco Use Types Packs/Day Years [...]
--- OUTSIDE RECORDS SUMMARY | 2022-01-04 15:49 | XMS_ITS | Encounter Summary ---
:1945 Author Organization [facility] Address [address] [place] [address] Care Team Providers Name Role Phone Unavailable Primary Care Provider Unavailable Encounter Details Date Type Department Care Team Description 06/23/2021 Orders Only Division of Nephrology and Jenna Neri A PRN, Hypertension, Mu-Ism C.N.P. [place], in [place], [facility] [address] [place], [place] [address] [place] [address] [place] [address] [phone] Social History Tobacco Use Types Packs/Day Years [...]
--- OUTSIDE RECORDS SUMMARY | 2022-01-04 15:49 | XMS_ITS | Encounter Summary ---
:1945 Author Organization [facility] Address [address] [place] [address] Care Team Providers Name Role Phone Unavailable Primary Care Provider Unavailable Reason for Visit Reason Comments Med Refill Encounter Details Date Type Department Care Team Description 04/19/2021 Refill Division of Nephrology and Micky, Shlomo Whitehead Jr., Med Refill Hypertension in [facility] [address] [facility] [address] [place] [address] [place] [address] [phone] Social History Tobacco Use Types Packs/Day Years [...]
--- OUTSIDE RECORDS SUMMARY | 2022-01-04 15:49 | XMS_ITS | Encounter Summary ---
:1945 Author Organization [facility] Address [address] [place] [address] Care Team Providers Name Role Phone Unavailable Primary Care Provider Unavailable Reason for Visit Reason Comments Med Refill Encounter Details Date Type Department Care Team Description 08/09/2021 Refill Department of Nephrology in [facility], Randal Whitehead Jr., Med Refill [place], [place] D.O. [address] [place] [address] [place] [address] [phone] (Wo rk) Social History Tobacco Use Types [...]
--- OUTSIDE RECORDS SUMMARY | 2022-01-04 15:49 | XMS_ITS | Encounter Summary ---
:1945 Author Organization [facility] Address [address] [place] [address] Care Team Providers Name Role Phone Unavailable Primary Care Provider Unavailable Encounter Details Date Type Department Care Team Description 07/18/2021 Documentation Division of Nephrology and Dave Weeks Hypertension in [place], , D.O. [place] [address] [facility] [address] [place] [address] [phone] (Wo rk) Social History Tobacco Use Types [...]
--- OUTSIDE RECORDS SUMMARY | 2022-01-04 15:49 | XMS_ITS | Encounter Summary ---
:1945 Author Organization [facility] Address [address] [place] [address] Care Team Providers Name Role Phone Unavailable Primary Care Provider Unavailable Encounter Details Date Type Department Care Team Description 06/07/2021 Documentation Division of Nephrology and Ludmila Reyes R.N. Hypertension in [place], [address] [place], [place] [address] [facility] [address] [place] [address] [phone] Social History Tobacco Use Types Packs/Day Years [...] her [facility] on Sunday06/14/21 at 9:30 am. You must have a clearance cutter to drive you home due to the [...] to three fourths of the day in [place] for this procedure. There is generally some waiting involved prior to the procedure. Post Access Instructions: Dr. Weeks has been informed of the catheter placement date, he and his team are in communication with the patient regarding the date she is to start dialysis. Appointment scheduled via Interventional Radiology. OGRAMMER documented in this encounter Plan of Treatment Scheduled Procedures Name Priority Associated Diagnoses Date/Time PLACEMENT ARTERIOVENOUS GRAFT UPPER Chronic Kidn ey Disease Stage 5 EXTREMITY Glomerular Filtration Rate Less Than 15 (HCC) documented as of this encounter Visit Diagnoses Not on filedocumented in this encounter
--- OUTSIDE RECORDS SUMMARY | 2022-01-04 15:49 | XMS_ITS | Encounter Summary ---
:1945 Author Organization [facility] Address [address] [place] [address] Care Team Providers Name Role Phone Unavailable Primary Care Provider Unavailable Encounter Details Date Type Department Care Team Description 08/17/2021 Orders Only Division of Nephrology and Jenna Neri A PRN, Hypertension, Mu-Ism C.N.P. [place], in [place], [facility] [address] [place], [place] [address] [facility] [address] [place] [address] [phone] Social History Tobacco Use Types Packs/Day Years [...]
--- OUTSIDE RECORDS SUMMARY | 2022-01-04 15:49 | XMS_ITS | Encounter Summary ---
:1945 Author Organization [facility] Address [address] [place] [address] Care Team Providers Name Role Phone Unavailable Primary Care Provider Unavailable Reason for Visit Appointment Request (Routine) - Closed Specialty Diagnoses / Procedures Referred By Contact Refer red To Contact Nephrology and Hypertension Referral ID Status Reason Start Date Expiration Date Visits Requ ested Visits Authorized [id number] Closed 03/30/2021 03/30/2022 1 1 Encounter Details Date Type Department Care Team Description 05/02/2021 External Division of Micky, Chronic Kidney Disease Stage 5 Glomerular Filtration Rate Less Than 15 (HCC) (Primary Dx); Outreach Nephrology and Randal Whitehead Jr., Hypertension And Chronic Kidney Disease Stage 5 (HCC); Hypertension in D.O. Osteodystrophy Renal; [address] Anemia Of Chronic Renal Disease; [place], [place] Hyperparathyroidism Renal Se condary (HCC); [address] [place] [address] Diabetes Mellitus Type 2 ([facility]); [place], [place] [phone] Chronic Right Heart Failure ([facility]) [address] (Work) [phone] Social History Tobacco Use Types Packs/Day Years Used Date Smoking Tobacco: Never Assessed Sex Assigned at Date Recorded Not on file documented as of this encounter Progress Notes Randal Weeks Jr., D.O. - 05/02/2021 1:30 PM CST Please see scanned in note under document viewer tab for the [facility] [place] outreach visit from this date. OR ERP CONSULTANT documented in this encounter Plan of Treatment [...]
--- OUTSIDE RECORDS SUMMARY | 2022-01-04 15:49 | XMS_ITS | Encounter Summary ---
:1945 Author Organization [facility] Address [address] [place] [address] Care Team Providers Name Role Phone Unavailable Primary Care Provider Unavailable Reason for Referral Medication Prior Authorization - Closed Specialty Diagnoses / Procedures Referred By Contact Refer red To Contact Jenna Neri APRN, C .N.P. [address] [place] [phone] Referral ID Status Reason Start Date Expiration Date Visits Requ ested Visits Authorized [id number] Closed 1 1 Encounter Details Date Type Department Care Team Description 09/02/2021 Orders Only Division of Nephrology and Jenna Neri A PRN, Hypertension, [place] C.N.P. [place], in [place], [address] [place] [address] [place] [address] [place] [address] [phone] Social History Tobacco Use Types Packs/Day Years [...]
--- OUTSIDE RECORDS SUMMARY | 2022-01-04 15:49 | XMS_ITS | Encounter Summary ---
:1945 Author Organization [facility] Address [address] [place] [address] Care Team Providers Name Role Phone Unavailable Primary Care Provider Unavailable Reason for Visit Reason Comments needs RX for gabapentin Encounter Details Date Type Department Care Team Description 07/22/2021 Clinical Division of Micky, needs RX for Communication Nephrology and Randal Whitehead Jr., gabapentin Hypertension in D.O. [place], [place] [address] [facility] [address] [place] [phone] Social History Tobacco Use Types Packs/Day Years [...] would like it to be called into [facility] in [place] at [phone]. Thanks documented in this encounter Plan of Treatment Scheduled Procedures Name Priority Associated Diagnoses Date/Time PLACEMENT ARTERIOVENOUS GRAFT UPPER Chronic Kidn ey Disease Stage 5 EXTREMITY Glomerular Filtration Rate Less Than 15 (HCC) documented as of this encounter Visit Diagnoses Not on filedocumented in this encounter
--- OUTSIDE RECORDS SUMMARY | 2022-01-04 15:49 | XMS_ITS | Encounter Summary ---
:1945 Author Organization [facility] Address [address] [place] [address] Care Team Providers Name Role Phone Unavailable Primary Care Provider Unavailable Reason for Visit Appointment Request (Routine) - Closed Specialty Diagnoses / Procedures Referred By Contact Refer red To Contact Nephrology and Hypertension Referral ID Status Reason Start Date Expiration Date Visits Requ ested Visits Authorized [id number] Closed 02/11/2021 02/11/2022 1 1 Encounter Details Date Type Department Care Team Description 02/28/2021 External Division of Micky, Chronic Kidney Disease Stage 5 Glomerular Filtration Rate Less Than 15 (HCC) (Primary Dx); Outreach Nephrology and Randal Whitehead Jr., Hypertension And Chronic Kidney Disease Stage 5 (HCC); Hypertension in D.O. Anemia Of Chronic Renal Disease; [address] Osteodystrophy Renal; [place], [place] Diabetes Mellitus Type 2 (HC C); [address] [facility] [address] Hyperparathyroidism Renal Secondary (HCC ); [place], [place] [phone] Chronic Right Heart Failure (HCC); [address] (Work) Apnea Sleep Obstructive [phone] Social History Tobacco Use Types Packs/Day Years Used Date Smoking Tobacco: Never Assessed Sex Assigned at Date Recorded Not on file documented as of this encounter Progress Notes Randal Weeks Jr., D.O. - 02/28/2021 4:00 PM CST Please see scanned in note under document viewer tab for the [facility] outreach visit from this date. She is [...] work team soon to plan fordialysis initiation. 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
--- OUTSIDE RECORDS SUMMARY | 2022-01-04 15:49 | XMS_ITS | Encounter Summary ---
:1945 Author Organization [facility] Address [address] [place] [address] Care Team Providers Name Role Phone Unavailable Primary Care Provider Unavailable Encounter Details Date Type Department Care Team Description 11/10/2020 Orders Only Division of Nephrology and Shlomo Weeks Hypertension in [place], ., D.O. [place] [address] [facility] [address] [place] [phone] [phone] (Wo rk) Social History Tobacco Use Types [...]
--- OUTSIDE RECORDS SUMMARY | 2022-01-04 15:49 | XMS_ITS | Encounter Summary ---
:1945 Author Organization [facility] Address [address] [place] [address] Care Team Providers Name Role Phone Unavailable Primary Care Provider Unavailable Reason for Visit Appointment Request (Routine) - Closed Specialty Diagnoses / Procedures Referred By Contact Refer red To Contact Nephrology and Hypertension Referral ID Status Reason Start Date Expiration Date Visits Requ ested Visits Authorized [id number] Closed 03/18/2021 03/18/2022 1 1 Encounter Details Date Type Department Care Team Description 03/28/2021 External Division of Micky, Farhana An d Chronic Kidney Disease Stage 5 (HCC) (Primary Dx); Outreach Nephrology and Randal Whitehead Jr., Chronic Kidn ey Disease Stage 5 Glomerular Filtration Rate Less Than 15 (HCC); Hypertension in [place]. Anemia Of Chronic Renal Disease; [address] Hyperparathyroidism Renal Secondary (HCC ); [place], [place] Diabetes Mellitus Type 2 (HC C); [address] [place] [phone] Infection Urinary Tract [place], [place] [phone] [address] (Work) [phone] Social History Tobacco Use Types Packs/Day Years Used Date Smoking Tobacco: Never Assessed Sex Assigned at Date Recorded Not on file documented as of this encounter Progress Notes Randal Weeks Jr., D.O. - 03/28/2021 1:30 PM CST Please see scanned in note under document viewer tab for the [facility] outreach visit from this date. UD LINE TIER documented in this encounter Plan of Treatment [...]
--- OUTSIDE RECORDS SUMMARY | 2022-01-04 15:49 | XMS_ITS | Encounter Summary ---
:1945 Author Organization [facility] Address [address] [place] [address] Care Team Providers Name Role Phone Unavailable Primary Care Provider Unavailable Reason for Referral Outpatient (Routine) - Closed Specialty Diagnoses / Procedures Referred By Contact Refer red To Contact Diagnoses Chronic Failure Renal End Stage Renal Disease Dialysis Dependent (HCC) Randal Weeks Jr., [facility] Procedures US Upper Extremity Right Dialysis Mapping D.O. [address] [place] [address] Referral ID Status Reason Start Date Expiration Date Visits Requ ested Visits Authorized [id number] Closed 10/17/2021 10/17/2022 1 1 Encounter Details Date Type Department Care Team Description 10/17/2021 Orders Only Division of Nephrology Justo Sauer Chro myrna Failure Renal and Hypertension, R.N. End Stage Renal Disease [facility] in [phone] Dialysi s Dependent [place], [place] (Work) ([facility]) (Primary Dx) [address] [place] [address] Social History Tobacco Use Types [...]
--- OUTSIDE RECORDS SUMMARY | 2022-01-04 15:49 | XMS_ITS | Encounter Summary ---
:1945 Author Organization [facility] Address [address] [place] [address] Care Team Providers Name Role Phone Unavailable Primary Care Provider Unavailable Encounter Details Date Type Department Care Team Description 06/17/2021 Orders Only Division of Nephrology and Jenna Neri A PRN, Hypertension, Denominational [employer] [place], in [place], [facility] [address] [place], [place] [address] [facility] [address] [place] [address] [phone] Social History Tobacco Use Types Packs/Day Years [...]
--- OUTSIDE RECORDS SUMMARY | 2022-01-04 15:49 | XMS_ITS | Encounter Summary ---
:1945 Author Organization [facility] Address [address] [place] [address] Care Team Providers Name Role Phone Unavailable Primary Care Provider Unavailable Encounter Details Date Type Department Care Team Description 10/17/2021 Documentation Division of Nephrology and Justo Sauer R.N. Hypertension in [place], ( Work) [place] [address] [place] [address] Social History Tobacco Use Types Packs/Day [...] initiated hemodialysis on 06/15/21. ??She dialyzes at [facility] on a Sunday, and Sunday schedule. [...] with the patient via phone: Hemodialysis Catheters ([id number]), Hemodialysis Fistula and Graft ([id number]). She received an red Save your Vein bracelet. Per Dr. Weeks's note on 06/07/21 We have discussed home dialysis modalities, she is currently not interested in these. ??She is not a transplant candidate. ??All questions were answered. ? Surgeon: Patient seen by Dr. Vidal Plan: ??Left Brachial Axillary AV Graft Surgery: Is scheduled for 11/04/21. Checklist: The Checklist for Surgical Patients ([id number]) was given to the patient with the following instructions: Report to [facility] admissions at the time told to you when you call in the night before. Report fasting after midnight, no am breakfast, but take your am meds with water. Insulin Directions: ??N/A Anticoagulation medications directions: ??N/A COVID-19 Testing: Ordered for [facility] on 10/31/21 BLACK: ??Dr. Weeks and Cirilo [...]
--- OUTSIDE RECORDS SUMMARY | 2022-01-04 15:49 | XMS_ITS | Encounter Summary ---
:1945 Author Organization [facility] Address [address] [place] [address] Care Team Providers Name Role Phone Unavailable Primary Care Provider Unavailable Reason for Visit Reason Comments UA positive for bacteria Encounter Details Date Type Department Care Team Description 11/08/2020 Clinical Division of Micky, UA positive for Communication Nephrology and Randal Whitehead Jr., bacteria Hypertension in D.O. [place], [place] [address] [facility] [address] [place] [address] [phone] Social History Tobacco Use Types Packs/Day Years Used Date Smoking Tobacco: Never Assessed Sex Assigned at Date Recorded Not on file documented as of this encounter Miscellaneous Notes Telephone Encounter - Yanet Conteh - 11/08/2020 9:06 AM CDT Irma (patient's daughter) from the [place] lab called. She saw the test results that came through on patient's UA, and it is 2 + for bacteria. She is wondering if you would like to do a urine culture. You are scheduled to see patient on Sunday, and Irma said you could contact her at the lab at [phone] to order that. She also thought it [...]
--- OUTSIDE RECORDS SUMMARY | 2022-01-04 15:49 | XMS_ITS | Encounter Summary ---
:1945 Author Organization [facility] Address [address] [place] [address] Care Team Providers Name Role Phone Unavailable Primary Care Provider Unavailable Encounter Details Date Type Department Care Team Description 10/17/2021 Orders Only Division of Nephrology Justo Sauer Chro myrna Failure Renal and Hypertension in R.N. End Stage Renal [place], [place] [phone] Disease Dialysis [address] (Work) Dependent (HCC) [place] [address] (Primary Dx) [phone] Social History Tobacco Use Types Packs/Day Years [...]
--- OUTSIDE RECORDS SUMMARY | 2022-01-04 15:49 | XMS_ITS | Encounter Summary ---
:1945 Author Organization [facility] Address [address] [place] [address] Care Team Providers Name Role Phone Unavailable Primary Care Provider Unavailable Reason for Visit Appointment Request (Routine) - Closed Specialty Diagnoses / Procedures Referred By Contact Refer red To Contact Nephrology and Hypertension Referral ID Status Reason Start Date Expiration Date Visits Requ ested Visits Authorized [id number] Closed 01/07/2021 01/07/2022 1 1 Encounter Details Date Type Department Care Team Description 01/17/2021 External Division of Micky, Farhana An d Chronic Kidney Disease Stage 5 (HCC) (Primary Dx); Outreach Nephrology and Randal Whitehead Jr., Chronic Kidn ey Disease Stage 5 Glomerular Filtration Rate Less Than 15 (HCC); Hypertension in [place]. Anemia Of Chronic Renal Disease; [address] Diabetes Mellitus Type 2 ([facility]); [place], [place] Hyperparathyroidism Renal Se condary ([facility]); [address] [place] [address] Apnea Sleep Obstructive; [place], [place] [phone] Chronic Right Heart Failure ([facility]) [address] (Work) [phone] Social History Tobacco Use Types Packs/Day Years Used Date Smoking Tobacco: Never Assessed Sex Assigned at Date Recorded Not on file documented as of this encounter Progress Notes Randal Weeks Jr., D.O. - 01/17/2021 2:00 PM CDT Please see scanned in note under document viewer tab for the [facility] outreach visit from this date. documented in [...]
--- OUTSIDE RECORDS SUMMARY | 2022-01-04 15:49 | XMS_ITS | Encounter Summary ---
:1945 Author Organization [facility] Address [address] [place] [address] Care Team Providers Name Role Phone Unavailable Primary Care Provider Unavailable Reason for Referral Outpatient (Routine) - Closed Specialty Diagnoses / Procedures Referred By Contact Refer red To Contact Radiology Diagnoses Chronic Kidney Disease Stage 5 Glomerular Filtration Rate Less Than 15 (HCC) Hypertension And Chronic Kidney Disease Stage 5 (HCC) Hyperparathyroidism Renal Secondary (HCC) Diabetes Mellitus Type 2 (HCC) [facility] Chronic Right Heart Failure (HCC) Apnea Sleep Obstructive Proteinuria D.O. Procedures IR Dialysis / High Flow Catheter Placement [address] [place], [place] [address] Referral ID Status Reason Start Date Expiration Date Visits Requ ested Visits Authorized [id number] Closed 06/07/2021 06/07/2022 1 1 AND TUBE STRAIGHTENER Reason for Visit Auth/Cert Specialty Diagnoses / [...] Expiration Date Visits Requ ested Visits Authorized [id number] 1 1 Encounter Details Date Type Department Care Team Description 06/14/2021 Hospital Department of Randal Weeks Jr., D.OGatito [address] [place] [phone] Chronic Kidney Disease Stage 5 Glomerula r Filtration Rate Less Than 15 (HCC); Encounter Radiology in Maximo Tierney M.D. [address] [place] [address] Hypertension And Chronic Kidney Disease Stage 5 ([facility]); Trung Berrios Ricardo A, M.D. Hyperparathyroidism Renal Secondary ([facility] ); [place] Diabetes Mellitus Type 2 (HC C); [address] [facility] Chronic Right Heart Failure (HCC); [place], [place] Apnea Sleep Ob structive; [address] Proteinuria [phone] Social History Tobacco Use Types Packs/Day Years Used Date Smoking Tobacco: Never Assessed Sex Assigned at Date Recorded Not on file documented as of this encounter Last Filed Vital Signs Vital Sign Reading Time Taken Comments Blood Pressure 142/92 06/14/2021 1:35 PM ROD AND TUBE STRAIGHTENER Pulse 65 06/14/2021 1:35 PM ROD AND TUBE STRAIGHTENER Temperature 36.8 ??C (98.2 ??F) 06/14/2021 12:50 PM ROD AND TUBE STRAIGHTENER Respiratory Rate 14 06/14/2021 1:35 PM ROD AND TUBE STRAIGHTENER Oxygen Saturation 100% 06/14/2021 1:35 PM ROD AND TUBE STRAIGHTENER Inhaled Oxygen Concentration - - Weight - - Height - - Body Mass Index - - documented in this encounter Discharge Instructions AttachmentsThe following attachments cannot be sent through Care Everywhere. Central Venous Catheter: Reducing Your Risk of Infection (Slovak)Hemodialysis Catheters (Slovak)documented in this encounter Medications at Time of [...] Not applicable PATIENT INSTRUCTIONS No return appointment AND TUBE STRAIGHTENER documented in this encounter Plan of Treatment Scheduled Procedures Name Priority Associated Diagnoses Date/Time PLACEMENT ARTERIOVENOUS GRAFT UPPER Chronic Kidn ey Disease Stage 5 EXTREMITY Glomerular Filtration Rate Less Than 15 (HCC) documented as of this encounter Procedures Procedure Name Priority Date/Time Associated Comments Diagnosis IR DIALYSIS / RAD - Routine 06/14/2021 12:34 Chronic Kidney Results for this HIGH FLOW (most inpatients PM ROD AND TUBE STRAIGHTENER Disease Stage 5 procedur e are in [...] High Flow Catheter Placement (06/14/2021 12:34 PM ROD AND TUBE STRAIGHTENER) Anatomical Region Laterality Modality Body, Vascular Interventional RST LOS, Vascular N/A X-Ray Angiography Interventional ARZ LOS, Vascular Interventional FLA LOS Specimen (Source) Anatomical Collection Method Collection Time Re ceived Time Location / / Volume Laterality 06/14/2021 1:22 PM ROD AND TUBE STRAIGHTENER Impressions 06/14/2021 1:27 PM ROD AND TUBE STRAIGHTENER Placement of a tunneled right IJ dialysis catheter. Tip at the right atrium. Ready for use. EP Narrative 06/14/2021 1:27 PM ROD AND TUBE STRAIGHTENER EXAM: IR DIALYSIS / HIGH FLOW CATHETER [...] injection 25 mcg Given 06/14/2021 12:22 PM ROD AND TUBE STRAIGHTENER 25 mcg (SUBLIMAZE) 25 mcg, intravenous, Every [...] than 8 breaths/minute Given 06/14/2021 12:18 PM ROD AND TUBE STRAIGHTENER 25 mcg Given 06/14/2021 12:14 PM ROD AND TUBE STRAIGHTENER 25 mcg flumazeniL injection 0.2 mg (ROMAZICON) 0.2 mg, intravenous, Once as needed, rev ersal, Starting on Sun06/14/21 at 1211, For 1 dose, Intraprocedure (RAD), Administer once if patient has a RASS score of -4, -5 and has a respiratory rate less than 8 breaths/minute. lidocaine-sodium bicarbonate (buffered) Given 06/14/2021 12:30 P M ROD AND TUBE STRAIGHTENER 10 mL 0.9%-8.4% injection infiltration, Code/trauma/sedation medication, Starting on Sun06/14/21 at 1230 midazolam (PF) injection 0.5 mg (VERSED) Given 06/14/2021 12:22 PM ROD AND TUBE STRAIGHTENER 0.5 mg 0.5 mg, intravenous, Every 2 min PRN, sedation, Starting on Sun06/14/21 at 1211, Intraprocedure (RAD), If RASS greater than -3, give additional dose(s) of 0.5 mg IV every 2 minutes for a maximum of 5 mg. Do not give if respiratory rate is less than 8 breaths/minute. Given 06/14/2021 12:18 PM ROD AND TUBE STRAIGHTENER 0.5 mg Given 06/14/2021 12:14 PM ROD AND TUBE STRAIGHTENER 0.5 mg NaCl 0.9% infusion 20 mL/hr, [...] 4 % injection Given 06/14/2021 12:27 PM ROD AND TUBE STRAIGHTENER 6 mL Code/trauma/sedation medication, Starting on Sun06/14/21 at 1227 documented in this encounter Active and Recently Administered Medications Times are shown in ROD AND TUBE STRAIGHTENER. PRN Medication Order 06/12/2021 06/13/2021 06/14/2021 [id number] [...]
--- OUTSIDE RECORDS SUMMARY | 2022-01-04 15:49 | XMS_ITS | Encounter Summary ---
:1945 Author Organization [facility] Address [address] [place] [address] Care Team Providers Name Role Phone Unavailable Primary Care Provider Unavailable Encounter Details Date Type Department Care Team Description 09/02/2021 Clinical Communication Division of Nephrology Randal Weeks and Hypertension odilia Whitehead Jr., D.O. [place], [place] [address] [place] [address] [phone] Social History Tobacco Use Types Packs/Day Years [...] 3 weeks Preferred Communication Method: Call patient [phone] Patient pharmacy: [id number] [place] [address] [facility]?[phone] Additional instructions: documented in this encounter Plan of Treatment Scheduled Procedures Name Priority Associated Diagnoses Date/Time PLACEMENT ARTERIOVENOUS GRAFT UPPER Chronic Kidn ey Disease Stage 5 EXTREMITY Glomerular Filtration Rate Less Than 15 (HCC) documented as of this encounter Visit Diagnoses Not on filedocumented in this encounter
--- OUTSIDE RECORDS SUMMARY | 2022-01-04 15:49 | XMS_ITS | Encounter Summary ---
:1945 Author Organization [facility] Address [address] [place] [address] Care Team Providers Name Role Phone Unavailable Primary Care Provider Unavailable Reason for Referral Outpatient (Routine) - Closed Specialty Diagnoses / Procedures Referred By Contact Refer red To Contact Diagnoses Chronic Failure Renal End Stage Renal Disease Dialysis Dependent (HCC) Randal Weeks Jr., [facility] Procedures US Upper Extremity Right Dialysis Mapping D.O. [address] [place] [address] Referral ID Status Reason Start Date Expiration Date Visits Requ ested Visits Authorized [id number] Closed 10/17/2021 10/17/2022 1 1 Reason for Visit Outpatient (Routine) - Closed Specialty Diagnoses / Procedures Referred By Contact Refer red To Contact Diagnoses Chronic Failure Renal End Stage Renal Disease Dialysis Dependent (HCC) Randal Weeks Jr., [place] Procedures US Upper Extremity Right Dialysis Mapping D.O. [address] [place] [address] Referral ID Status Reason Start Date Expiration Date Visits Requ ested Visits Authorized [id number] Closed 10/17/2021 10/17/2022 1 1 Encounter Details Date Type Department Care Team Description 10/17/2021 Hospital Encounter Department of Micky, Chronic Failure Radiology, Marixa Whitehead Jr., Renal End Stage Building, in D.O. Renal Disease [place], [place] [address] [facility] Dialysis Dependent [address] [place], [place] (HCC) [place] [phone] Social History Tobacco Use Types Packs/Day Years [...]
--- OUTSIDE RECORDS SUMMARY | 2022-01-04 15:49 | XMS_ITS | Encounter Summary ---
:1945 Author Organization [facility] Address [address] [place] [address] Care Team Providers Name Role Phone Unavailable Primary Care Provider Unavailable Reason for Referral Outpatient (Routine) - Closed Specialty Diagnoses / Procedures Referred By Contact Refer red To Contact Diagnoses Chronic Kidney Disease Stage 5 Glomerular Filtration Rate Less Than 15 (HCC) Anemia Of Chronic Renal Disease Hyperparathyroidism Renal Secondary (HCC) Apnea Sleep Obstructive Randal Weeks Jr., [facility] Procedures US Upper Extremity Left Dialysis Mapping D.O. [address] [place], [place] [address] Referral ID Status Reason Start Date Expiration Date Visits Requ ested Visits Authorized [id number] Closed 09/17/2021 09/17/2022 1 1 Reason for Visit Outpatient (Routine) - Closed Specialty Diagnoses / Procedures Referred By Contact Refer red To Contact Diagnoses Chronic Kidney Disease Stage 5 Glomerular Filtration Rate Less Than 15 (HCC) Anemia Of Chronic Renal Disease Hyperparathyroidism Renal Secondary (HCC) Apnea Sleep Obstructive Randal Weeks Jr., [facility] Procedures US Upper Extremity Left Dialysis Mapping D.O. [address] [place], [place] [address] Referral ID Status Reason Start Date Expiration Date Visits Requ ested Visits Authorized [id number] Closed 09/17/2021 09/17/2022 1 1 Encounter Details Date Type Department Care Team Description 10/17/2021 Hospital Department of Micky, Chronic Kidney Disease Stage 5 Glomerular Filtration Rate Less Than 15 (HCC); Encounter Radiology, Marixa Whitehead Jr., Anemia Of Chronic Renal Disease; Building, in [place]O. Hyperparathyroidism Renal Secondary (HCC ); [place], [address] [facility] Apnea Sleep Obstructive [place], [place] [address] [facility] [address] [place], [place] [phone] [address] (Work) [phone] Social History Tobacco Use Types Packs/Day Years [...]
--- OUTSIDE RECORDS SUMMARY | 2022-01-04 15:49 | XMS_ITS | Encounter Summary ---
:1945 Author Organization [facility] Address [address] [place] [address] Care Team Providers Name Role Phone Unavailable Primary Care Provider Unavailable Encounter Details Date Type Department Care Team Description 2021 Orders Only Division of Nephrology Randal Weeks Kidney Disease and Hypertension in C Jr. DTrey Stage 5 Glomerular [place], [place] [address] Filtration Rate Less [address] [place], [place] Than 15 (HCC) ([place] [address] Dx) [id number] [phone] Social History Tobacco Use Types Packs/Day Years [...] Tushar Ab, Semi-Quant, S (06/14/2021 11:49 AM BACKREST ASSEMBLER) athologist Signature SARS-CoV-2 Positive 06/14/2021 [facility] Tushar Ab, 5:17 PM BACKREST ASSEMBLER Interp, S Comment: Antibodies to the SARS-CoV-2 [...] Quant, S >250 U/mL 06/14/2021 5:17 PM BACKREST ASSEMBLER [facility] Comment: ----ADDITIONAL INFORMATION---- Testing was performed using the [employer]ys Anti-SARS- CoV-2 S Reagent assay from [employer], which has received Emergency Use Authorization (EU A) by the U.S. Food and Drug Administration. Fact sheets for this Emergency Use Autho rization (EUA) assay can be found at the following link s: For Healthcare Providers: https://www.fda.gov/media/946250/downloa d For Patients: https://www.fda.gov/media/718219/downloa d Specimen Anatomical Collection Method Collection Time Receive d Time (Source) Location / / Volume Laterality Blood (Blood, 06/14/2021 11:49 06/14/2021 4:40 Venous) AM BACKREST ASSEMBLER PM BACKREST ASSEMBLER Randal Weeks Jr., D.O. LAB MICROBIOLOGY - BLOOD O CORA Performing Organization Address City/[facility]/ZIP Code Phon e Number [facility] [address] DEVON [place] [address] SU[facility] C[facility] [place] [address] Laboratory Medicine and Pathology [address] [place] [address] Dr. OSORIO Hepatitis B Surface Antigen (06/14/2021 11:49 AM BACKREST ASSEMBLER) athologist Signature HBs Antigen, S Negative Negative 06/14/2021 [facility] 8:45 PM BACKREST ASSEMBLER Specimen Anatomical Collection Method Collection Time Receive d Time (Source) Location / / Volume Laterality Blood (Blood, 06/14/2021 11:49 06/14/2021 3:27 Venous) AM BACKREST ASSEMBLER PM BACKREST ASSEMBLER Randal Weeks Jr., D.O. LAB MICROBIOLOGY - BLOOD O CORA Performing Organization Address City/[facility]/ZIP Code Phon e Number [facility] [address] DEVON Berrios [place] [address] SUPPORT CENTER [facility] [place] [address] Laboratory Medicine and Pathology [address] [place] [address] Dr. OSORIO documented in this encounter Visit Diagnoses Diagnosis Chronic Kidney Disease Stage 5 Glomerula r Filtration Rate Less Than 15 (HCC) - Primary documented in this encounter
--- OUTSIDE RECORDS SUMMARY | 2022-01-04 15:49 | XMS_ITS | Encounter Summary ---
:1945 Author Organization [facility] Address [address] [place] [address] Care Team Providers Name Role Phone Unavailable Primary Care Provider Unavailable Reason for Visit Outpatient (Routine) - Closed Specialty Diagnoses / Procedures Referred By Contact Refer red To Contact Nephrology and Diagnoses Chronic Failure Renal End Stage Renal Disease Dialysis Dependent (HCC) Randal Weeks [facility] Hypertension , D.O. [address] [place] [address] Referral ID Status Reason Start Date Expiration Date Visits Requ ested Visits Authorized [id number] Closed 09/19/2021 09/19/2022 1 1 Encounter Details Date Type Department Care Team Description 10/17/2021 Nurse Only Division of Nephrology and Randal Painter Jr., D.O. [address] [place] [address] Hypertension in [facility] Justo Velasquez, RGatito[place]at[place] [address] [place], [place] [address] Social History Tobacco Use Types Packs/Day [...]
--- OUTSIDE RECORDS SUMMARY | 2022-01-04 15:49 | XMS_ITS | Encounter Summary ---
:1945 Author Organization [facility] Address [address] [place] [address] Care Team Providers Name Role Phone Unavailable Primary Care Provider Unavailable Encounter Details Date Type Department Care Team Description 06/15/2021 Documentation Division of Nephrology and Delbert Flor, Hypertension, Taoism Taryn Cason, M.S.W. [place], in [place], [facility] [address] [place], [place] [address] [place] [address] [place] [address] [phone] Social History Tobacco Use Types Packs/Day Years Used Date Smoking Tobacco: Never Assessed Sex Assigned at Date Recorded Not on file documented as of this encounter Progress Notes Carmencita Flor L.I.C.S.W., M.S.W. - 06/15/2021 8:51 AM CST SUBJECTIVE The patient is scheduled to start dialysis today, SundayJune 15 at 2 pm at [facility] Dialysis unit. They have received all the necessary information for the patient to be accepted. OBJECTIVE The patient will initiate dialysis at [facility]. ASSESSMENT / PLAN ASSESSMENT Her daughter was provided with all of the necessary information regarding her dialysis schedule. PLAN Social work will be available to provide support as needed. Ria Robbins, M.S.W. 06/15/21 AGENT documented in this encounter Plan of Treatment Scheduled Procedures Name Priority Associated Diagnoses Date/Time PLACEMENT ARTERIOVENOUS GRAFT UPPER Chronic Kidn ey Disease Stage 5 EXTREMITY Glomerular Filtration Rate Less Than 15 (HCC) documented as of this encounter Visit Diagnoses Not on filedocumented in this encounter
--- OUTSIDE RECORDS SUMMARY | 2022-01-04 15:49 | XMS_ITS | Encounter Summary ---
:1945 Author Organization [facility] Address [address] [place] [address] Care Team Providers Name Role Phone Unavailable Primary Care Provider Unavailable Reason for Referral Outpatient (Routine) - Authorized Specialty Diagnoses / Procedures Referred By Contact Refer red To Contact Diagnoses Chronic Kidney Disease Stage 5 Glomerular Filtration Rate Less Than 15 (HCC) Anemia Of Chronic Renal Disease Hyperparathyroidism Renal Secondary (HCC) Apnea Sleep Obstructive Randal Weeks Jr., [facility] Procedures DX Chest AP or PA and Lateral 2 Views D.O. 200 [place] [address] Referral ID Status Reason Start Date Expiration Date Visits V isits Requested Authorized [id number] Authorized 09/17/2021 09/17/2022 1 1 Outpatient (Routine) - Authorized Specialty Diagnoses / Procedures Referred By Contact Refer red To Contact Diagnoses Chronic Kidney Disease Stage 5 Glomerular Filtration Rate Less Than 15 (HCC) Anemia Of Chronic Renal Disease Hyperparathyroidism Renal Secondary (HCC) Apnea Sleep Obstructive Randal Weeks Jr. [facility] Procedures ECG 12 Lead D.O. 200 [place] [address] Referral ID Status Reason Start Date Expiration Date Visits V isits Requested Authorized [id number] Authorized 09/17/2021 09/17/2022 1 1 Outpatient (Routine) - Closed Specialty Diagnoses / Procedures Referred By Contact Refer red To Contact Diagnoses Chronic Kidney Disease Stage 5 Glomerular Filtration Rate Less Than 15 (HCC) Anemia Of Chronic Renal Disease Hyperparathyroidism Renal Secondary (HCC) Apnea Sleep Obstructive Randal Weeks Jr., [place] [facility] Procedures US Upper Extremity Left Dialysis Mapping D.O. [address] [place], [place] [address] Referral ID Status Reason Start Date Expiration Date Visits Requ ested Visits Authorized [id number] Closed 09/17/2021 09/17/2022 1 1 Outpatient (Routine) - Closed Specialty Diagnoses / Procedures Referred By Contact Refer red To Contact Nephrology and Diagnoses Chronic Kidney Disease Stage 5 Glomerular Filtration Rate Less Than 15 (HCC) Anemia Of Chronic Renal Disease Hyperparathyroidism Renal Secondary (HCC) Apnea Sleep Obstructive Randal Weeks [facility] Hypertension / Dialysis JrGatito, D.O. 200 [place] [address] Referral ID Status Reason Start Date Expiration Date Visits Requ ested Visits Authorized [id number] Closed 09/17/2021 09/17/2022 1 1 Scheduling Instructions TTS [place] patient so MWTato good for a ppts Encounter Details Date Type Department Care Team Description 09/17/2021 Orders Only Division of [place], Chronic Kidney Disease Stage 5 Glomerular Filtration Rate Less Than 15 (HCC) (Primary Dx); Nephrology and Randal Whitehead Jr., Anemia Of Ch ronic Renal Disease; Hypertension in D.O. Hyperparathyroidism Renal Secondary (HCC ); [place], [place] [address] [facility] [[email or web address]] Apnea Sleep Obstructive [address] [place] [address] [phone] Social History Tobacco Use Types Packs/Day Years [...]
--- OUTSIDE RECORDS SUMMARY | 2022-01-04 15:49 | XMS_ITS | Encounter Summary ---
:1945 Author Organization [facility] Address [address] [place] [address] Care Team Providers Name Role Phone Unavailable Primary Care Provider Unavailable Encounter Details Date Type Department Care Team Description 07/18/2021 Orders Only Division of Nephrology and Shlomo Weeks Hypertension in [place], ., D.O. [place] [address] [facility] [address] [place] [address] [phone] (Wo rk) Social History Tobacco Use Types [...]
--- OUTSIDE RECORDS SUMMARY | 2022-01-04 15:49 | XMS_ITS | Encounter Summary ---
:1945 Author Organization [facility] Address [address] [place] [address] Care Team Providers Name Role Phone Unavailable Primary Care Provider Unavailable Encounter Details Date Type Department Care Team Description 07/22/2021 Orders Only Division of Nephrology Randal Weeksension And Chronic Kidney Disease Stage 5 (HCC) (Primary Dx); and Hypertension in Charley Bolden D.O. Anemia Of Chronic Renal Disease [place], [place] [address] [facility] [address] [place] [address] [phone] Social History Tobacco Use Types Packs/Day Years [...]
--- OUTSIDE RECORDS SUMMARY | 2022-01-04 15:49 | XMS_ITS | Encounter Summary ---
:1945 Author Organization [facility] Address [address] [place] [address] Care Team Providers Name Role Phone Unavailable Primary Care Provider Unavailable Encounter Details Date Type Department Care Team Description 06/15/2021 Orders Only Division of Nephrology and Jenna Neri A PRN, Hypertension, Cheondoism C.N.P. [place], in [place], [facility] [address] [place], [place] [address] [facility] [address] [place] [address] [phone] Social History Tobacco Use Types Packs/Day Years [...]
--- OUTSIDE RECORDS SUMMARY | 2022-01-04 15:49 | XMS_ITS | Encounter Summary ---
:1945 Author Organization [facility] Address [address] [place] [address] Care Team Providers Name Role Phone Unavailable Primary Care Provider Unavailable Encounter Details Date Type Department Care Team Description 07/06/2021 Orders Only Division of Nephrology and Jenna Neri A PRN, Hypertension, Denominational C.N.P. [place], in [place], [facility] [address] [place], [place] [address] [facility] [address] [place] [address] [phone] Social History Tobacco Use Types Packs/Day Years [...]
--- OUTSIDE RECORDS SUMMARY | 2022-01-04 15:49 | XMS_ITS | Encounter Summary ---
:1945 Author Organization [facility] Address [address] [place] [address] Care Team Providers Name Role Phone Unavailable Primary Care Provider Unavailable Encounter Details Date Type Department Care Team Description 10/17/2021 Orders Only Department of Radiology in [place], [place] BOILERMAKER, C.N.P. [address] [facility] [address] [place] [address] [place], [place] [phone] [address] (Wo rk) Social History Tobacco Use Types [...]
--- OUTSIDE RECORDS SUMMARY | 2022-01-04 15:50 | XMS_ITS | Encounter Summary ---
:1945 Author Organization [facility] Address [address] [place] [address] Care Team Providers Name Role Phone Unavailable Primary Care Provider Unavailable Reason for Visit Appointment Request (Routine) - Closed Specialty Diagnoses / Procedures Referred By Contact Refer red To Contact Nephrology and Hypertension Referral ID Status Reason Start Date Expiration Date Visits Requ ested Visits Authorized [id number] Closed 08/18/2020 08/18/2021 1 1 Encounter Details Date Type Department Care Team Description 09/08/2020 External Outreach Division of Wanda Weeks Ki dney Disease Stage 5 Glomerular Filtration Rate Less Than 15 (HCC) (Primary Dx); Nephrology and Randal Whitehead Jr., Hypertension And Chronic Kidney Disease Stage 5 (HCC); Hypertension in D.O. Anemia Of Chronic Renal Disease; [place], [place] [address] [facility] Osteodystrophy Renal; [address] [place], [place] Diabetes Mellitus Type 2 (HC C); [place] [address] Chronic Right Heart Failure (HCC); [id number] Proteinuria Social History Tobacco Use Types Packs/Day Years Used Date Smoking Tobacco: Never Assessed Sex Assigned at Date Recorded Not on file documented as of this encounter Progress Notes Randal Weeks Jr., D.O. - 09/08/2020 4:30 PM CDT Please see scanned in note under document viewer tab for the [facility] [place] outreach visit from this date. documented in [...]
--- OUTSIDE RECORDS SUMMARY | 2022-01-04 15:50 | XMS_ITS | Encounter Summary ---
:1945 Author Organization [facility] Address [address] [place] [address] Care Team Providers Name Role Phone Unavailable Primary Care Provider Unavailable Reason for Visit Appointment Request (Routine) - Closed Specialty Diagnoses / Procedures Referred By Contact Refer red To Contact Nephrology and Hypertension Referral ID Status Reason Start Date Expiration Date Visits Requ ested Visits Authorized [id number] Closed 02/26/2020 02/25/2021 1 1 Encounter Details Date Type Department Care Team Description 03/22/2020 External Outreach Division of Wanda Weeks Ki dney Disease Stage 5 Glomerular Filtration Rate Less Than 15 (HCC) (Primary Dx); Nephrology and Randal Whitehead Jr., Hypertension And Chronic Kidney Disease Stage 5 (HCC); Hypertension in D.O. Anemia Of Chronic Renal Disease; [place], [place] [address] [facility] Osteodystrophy Renal; [address] [place], [place] Diabetes Mellitus Type 2 (HC C); [place] [address] Proteinuria; [address] Chronic Right Heart Failure (HCC) Social History Tobacco Use Types Packs/Day Years Used Date Smoking Tobacco: Never Assessed Sex Assigned at Date Recorded Not on file documented as of this encounter Progress Notes Randal Weeks Jr., D.O. - 03/22/2020 3:30 PM CST Please see scanned in note under document viewer tab for the [facility] [place] outreach visit from this date. 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
--- OUTSIDE RECORDS SUMMARY | 2022-01-04 15:50 | XMS_ITS | Encounter Summary ---
:1945 Author Organization [facility] Address [address] [place] [address] Care Team Providers Name Role Phone Unavailable Primary Care Provider Unavailable Reason for Visit Appointment Request (Routine) - Closed Specialty Diagnoses / Procedures Referred By Contact Refer red To Contact Nephrology and Hypertension Referral ID Status Reason Start Date Expiration Date Visits Requ ested Visits Authorized [id number] Closed 03/31/2020 03/31/2021 1 1 Encounter Details Date Type Department Care Team Description 04/28/2020 External Outreach Division of Reina Weeks on And Chronic Kidney Disease Stage 5 (HCC) (Primary Dx); Nephrology and Randal Whitehead Jr., Chronic Kidn ey Disease Stage 5 Glomerular Filtration Rate Less Than 15 (HCC); Hypertension in D.O. Anemia Of Chronic Renal Disease; [place], [place] [address] [facility] Osteodystrophy Renal; [address] [place], [place] Diabetes Mellitus Type 2 (HC C); [place] [address] Chronic Right Heart Failure (HCC) [address] [phone] Social History Tobacco Use Types Packs/Day Years Used Date Smoking Tobacco: Never Assessed Sex Assigned at Date Recorded Not on file documented as of this encounter Progress Notes Randal Weeks Jr., D.O. - 04/28/2020 3:00 PM CST Please see scanned in note under document viewer tab for the [facility] [place] outreach visit from this date. 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
--- OUTSIDE RECORDS SUMMARY | 2022-01-04 15:50 | XMS_ITS | Encounter Summary ---
:1945 Author Organization [facility] Address [address] [place] [address] Care Team Providers Name Role Phone Unavailable Primary Care Provider Unavailable Encounter Details Date Type Department Care Team Description 07/22/2020 Clinical Communication Division of Nephrology Randal Weeks and Hypertension odilia Whitehead Jr., D.O. [address] [place] [address] [phone] Social History Tobacco Use Types Packs/Day Years Used Date Smoking Tobacco: Never Assessed Sex Assigned at Date Recorded Not on file documented as of this encounter Miscellaneous Notes Telephone Encounter - Randal Weeks Jr., D.O. - 07/22/2020 5:43 PM CDT Email documentation == See the [facility] documentation. Thanks Angela can you call them as below--I???ll send in the RX Randal Weeks Jr., D.O. [facility] Division of Nephrology and Hypertension iuss acoustic analyst [facility] [place]: [phone] [email or web address] 200 [place] [address] [email or web address] From: Rachel Herr) - [facility] <[email or web address]> Sent: July 10:11 AM To: Randal Weeks Jr., D.O. <[email or web address]> Subject: [EXTERNAL] Jael Berry (41) Hi - [...] scheduled for follow up with you at [facility] 08/02. ~Angela documented in this encounter Plan of Treatment Scheduled Procedures Name Priority Associated Diagnoses Date/Time PLACEMENT ARTERIOVENOUS GRAFT UPPER Chronic Kidn ey Disease Stage 5 EXTREMITY Glomerular Filtration Rate Less Than 15 (HCC) documented as of this encounter Visit Diagnoses Not on filedocumented in this encounter
--- OUTSIDE RECORDS SUMMARY | 2022-01-04 15:50 | XMS_ITS | Encounter Summary ---
:1945 Author Organization [facility] Address [address] [place] [address] Care Team Providers Name Role Phone Unavailable Primary Care Provider Unavailable Encounter Details Date Type Department Care Team Description 06/10/2020 Orders Only Division of Nephrology and Shlomo Weeks Hypertension in [place], ., D.O. [place] [address] [facility] [address] [place] [address] [phone] (Wo rk) Social History Tobacco Use Types [...]
--- OUTSIDE RECORDS SUMMARY | 2022-01-04 15:50 | XMS_ITS | Encounter Summary ---
:1945 Author Organization [facility] Address [address] [place] [address] Care Team Providers Name Role Phone Unavailable Primary Care Provider Unavailable Reason for Visit Appointment Request (Routine) - Closed Specialty Diagnoses / Procedures Referred By Contact Refer red To Contact Nephrology and Hypertension Referral ID Status Reason Start Date Expiration Date Visits Requ ested Visits Authorized [id number] Closed 06/17/2020 06/17/2021 1 1 Encounter Details Date Type Department Care Team Description 08/02/2020 External Outreach Division of Wanda Weeksey Disease Stage 5 Glomerular Filtration Rate Less Than 15 (HCC) (Primary Dx); Nephrology and Randal Whitehead Jr., Hypertension And Chronic Kidney Disease Stage 5 (HCC); Hypertension in D.O. Anemia Of Chronic Renal Disease; [place], [place] [address] [facility] Osteodystrophy Renal; [address] [place], [place] Diabetes Mellitus Type 2 (HC C); [place] [address] Apnea Sleep Obstructive; [address] Proteinuria Social History Tobacco Use Types Packs/Day Years Used Date Smoking Tobacco: Never Assessed Sex Assigned at Date Recorded Not on file documented as of this encounter Progress Notes Randal Weeks Jr., D.O. - 08/02/2020 3:00 PM CDT Please see scanned in note under document viewer tab for the [facility] [place] outreach visit from this date. documented in [...]
--- OUTSIDE RECORDS SUMMARY | 2022-01-04 15:50 | XMS_ITS | Encounter Summary ---
:1945 Author Organization [facility] Address [address] [place] [address] Care Team Providers Name Role Phone Unavailable Primary Care Provider Unavailable Reason for Visit Appointment Request (Routine) - Closed Specialty Diagnoses / Procedures Referred By Contact Refer red To Contact Nephrology and Hypertension Referral ID Status Reason Start Date Expiration Date Visits Requ ested Visits Authorized [id number] Closed 06/03/2020 06/03/2021 1 1 Encounter Details Date Type Department Care Team Description 06/09/2020 External Outreach Division of Wanda Weeksey Disease Stage 5 Glomerular Filtration Rate Less Than 15 (HCC) (Primary Dx); Nephrology and Randal Whitehead Jr., Hypertension And Chronic Kidney Disease Stage 5 (HCC); Hypertension in D.O. Anemia Of Chronic Renal Disease; [place], [place] [address] [facility] Osteodystrophy Renal; [address] [place], [place] Diabetes Mellitus Type 2 (HC C); [place] [address] Infection Urinary Tract [address] [phone] Social History Tobacco Use Types Packs/Day Years Used Date Smoking Tobacco: Never Assessed Sex Assigned at Date Recorded Not on file documented as of this encounter Progress Notes Randal Weeks Jr., D.O. - 06/09/2020 3:00 PM CST Please see scanned in note under document viewer tab for the [facility] [place] outreach visit from this date. 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
--- OUTSIDE RECORDS SUMMARY | 2022-01-04 15:50 | XMS_ITS | Encounter Summary ---
:1945 Author Organization [facility] Address [address] [place] [address] Care Team Providers Name Role Phone Unavailable Primary Care Provider Unavailable Encounter Details Date Type Department Care Team Description 07/22/2020 Orders Only Division of Nephrology and Shlomo Weeks Hypertension in [place], ., D.O. [place] [address] [facility] [address] [place] [address] [phone] (Wo rk) Social History Tobacco Use Types [...]
--- OUTSIDE RECORDS SUMMARY | 2022-01-04 15:51 | XMS_ITS | Encounter Summary ---
:1945 Author Organization [facility] Address [facility] [place] [address] Care Team Providers Name Role Phone Eusebia [...] on filedocumented in this encounter Care Teams Certified Histologic Technician Relationship Specialty Start Date End Date Eusebia Whitaker PCP - General Family Practice 09/25/19 [facility] [address] [place] [address] documented as of this encounter
--- OUTSIDE RECORDS SUMMARY | 2022-01-04 15:51 | XMS_ITS | Encounter Summary ---
:1945 Author Organization [facility] Address [address] [place] [address] Care Team Providers Name Role Phone Unavailable Primary Care Provider Unavailable Reason for Visit Appointment Request (Routine) - Closed Specialty Diagnoses / Procedures Referred By Contact Refer red To Contact Nephrology and Hypertension Referral ID Status Reason Start Date Expiration Date Visits Requ ested Visits Authorized [id number] Closed 01/15/2020 01/14/2021 1 1 Encounter Details Date Type Department Care Team Description 01/20/2020 External Outreach Division of Wanda Weeks dney Disease Stage 4 Glomerular Filtration Rate 15-29 (HCC) (Primary Dx); Nephrology and Randal Whitehead Jr., Hypertension And Chronic Kidney Disease Stage 4 (HCC); Hypertension in D.O. Proteinuria; [place], [place] [address] [facility] Diabetes Mellitus Type 2 (HCC); [address] [place], [place] Chronic Right Heart Failure (HCC) [place] [address] [phone] Social History Tobacco Use Types Packs/Day Years Used Date Smoking Tobacco: Never Assessed Sex Assigned at Date Recorded Not on file documented as of this encounter Progress Notes Randal Weeks Jr., D.O. - 01/20/2020 3:00 PM CDT Please see scanned in note under document viewer tab for the [facility] [address] outreach visit from this date. documented in [...]
--- OUTSIDE RECORDS SUMMARY | 2022-01-04 15:51 | XMS_ITS | Encounter Summary ---
:1945 Author Organization [facility] Address [address] [place] [address] Care Team Providers Name Role Phone Unavailable Primary Care Provider Unavailable Encounter Details Date Type Department Care Team Description 01/12/2020 Clinical Communication Division of Nephrology Randal Weeks and Hypertension odilia Whitehead Jr., D.O. [place], [place] [address] [facility] [address] [place] [address] [phone] Social History Tobacco Use Types Packs/Day Years [...]
--- OUTSIDE RECORDS SUMMARY | 2022-01-04 15:51 | XMS_ITS | Encounter Summary ---
:1945 Author Organization [place] Address [facility] [place] [address] Care Team Providers Name Role Phone Eusebia Whitaker Primary Care Provider Encounter Details Date Type Department Care Team Description 10/01/2019 Hospital Encounter M [facility] Non-Fv Cred entialed Provider, Radiology [facility] [address] Audi Maurer MD [employer] [address] [place] [address] [address] [place] [address] Social History Tobacco Use [...] cannot control If you have questions call: [facility] Radiology Dept @ [phone] 1. Cancel bx today and reschedule once [...] start date,and side effects, yes. Pt to fruit or nut picker new medication at her pharmacy today. [...] If the visitor has positive symptoms, notify parole supervisor/manger Per policy, the visitor will need [...] Signature INR 1.10 0.86 - 1.14 10/01/2019 [place] 9:36 AM CDT [facility] Specimen Anatomical Collection Method Collection Time Receive d Time (Source) Location / / Volume Laterality Blood specimen 10/01/2019 9:19 AM 020 9:20 (specimen) CDT AM CDT Adrian Kern MD LAB - BLOOD ORDERABLES Performing Organization Address City/State/ZIP Code Phon e Number M [facility] [address] [phone] [facility] [address] [address], [place] [phone] (ABNORMAL) Basic metabolic panel (10/01/2019 9:19 AM CDT) Analysis Performed At [facility] Time Signature Sodium 138 133 - 144 10/01/2019 [place] mmol/L 9:41 AM [facility] Potassium 3.5 3.4 - 5.3 10/01/2019 [place] mmol/L 9:41 AM [facility] Chloride 106 94 - 109 10/01/2019 [place] mmol/L 9:41 AM [facility] Carbon Dioxide 26 20 - 32 10/01/2019 [place] mmol/L 9:51 AM [facility] Anion Gap 6 3 - 14 10/01/2019 [place] mmol/L 9:51 AM [facility] Glucose 102 (H) 70 - 99 10/01/2019 [place] mg/dL 9:51 AM [facility] Urea Nitrogen 35 (H) 7 - 30 10/01/2019 [place] mg/dL 9:51 AM [facility] Creatinine 2.79 (H) 0.52 - 10/01/2019 [place] 1.04 mg/dL 9:51 AM [facility] GFR Estimate 16 (L) >60 10/01/2019 [place] mL/min/{1. 9:51 AM [facility] 73_m2} [facility] Comment: Non GFR Calc Starting 03/26/2018, serum creatinine ba sed estimated GFR (eGFR) will be calculated using the Chronic Kidney Dise [facility] Epidemiology Collaboration (CKD-EPI) equation. GFR Estimate If 18 (L) >60 mL/min/{1.73_m2} 10/01/2019 9: 51 AM [facility] Comment: GFR Calc Starting 03/26/2018, serum creatinine ba sed estimated GFR (eGFR) will be calculated using the Chronic Kidney Dise ase Epidemiology Collaboration (CKD-EPI) equation. Calcium 8.9 8.5 - 10.1 mg/dL 10/01/2019 9:51 AM CDT [facility] Specimen Anatomical Collection Method Collection Time Receive d Time (Source) Location / / Volume Laterality Blood specimen 10/01/2019 9:19 AM 020 9:20 (specimen) CDT AM CDT Adrian Kern MD LAB - BLOOD ORDERABLES Performing Organization Address City/State/ZIP Code Phon e Number M [facility] [address] [place] [address] [facility] [address] [place] [address], [place] [phone] Platelet function closure with reflex (10/01/2019 9:19 AM CDT) P athologist Signature PLT Funct 149 <170 sec 10/01/2019 [place] COL/EPI 10:13 AM CDT [facility] Specimen Anatomical Collection Method Collection Time Receive d Time (Source) Location / / Volume Laterality Blood specimen 10/01/2019 9:19 AM 020 9:20 (specimen) CDT AM CDT Adrian Kern MD LAB - BLOOD ORDERABLES Performing Organization Address City/State/ZIP Code Phon e Number M [facility] [address] [place] [address] [facility] [address] [place] [address], [place] [phone] (ABNORMAL) CBC with platelets (10/01/2019 9:19 AM CDT) Analysis Performed At Patho logist Time Signature WBC 5.3 4.0 - 11.0 10/01/2019 [place] 10e9/L 9:26 AM [facility] RBC Count 3.58 (L) 3.8 - 5.2 10/01/2019 [place] 10e12/L 9:26 AM [facility] Hemoglobin 10.2 (L) 11.7 - 10/01/2019 [place] 15.7 g/dL 9:26 AM [facility] Hematocrit 30.8 (L) 35.0 - 10/01/2019 [place] 47.0 % 9:26 AM T [facility] MCV 86 78 - 100 10/01/2019 [place] fl 9:26 AM T [facility] MCH 28.5 26.5 - 10/01/2019 [place] 33.0 pg 9:26 AM [facility] MCHC 33.1 31.5 - 10/01/2019 [place] 36.5 g/dL 9:26 AM [facility] RDW 14.5 10.0 - 10/01/2019 [place] 15.0 % 9:26 AM [facility] Platelet Count 170 150 - 450 10/01/2019 [place] 10e9/L 9:26 AM [facility] Specimen Anatomical Collection Method Collection Time Receive d Time (Source) Location / / Volume Laterality Blood specimen 10/01/2019 9:19 AM 020 9:20 (specimen) CDT AM CDT Adrian Kern MD LAB - BLOOD ORDERABLES Performing Organization Address City/State/ZIP Code Phon e Number M [facility] [address] [address] [facility] [address] [address], [facility] [phone] documented in this encounter Visit Diagnoses Not [...] dose documented in this encounter Care Teams Long Chain Quiller Tender Relationship Specialty Start Date End Date Eusebia Whitaker PCP - General Family Practice 09/25/19 [facility] [address] [place] [address] documented as of this encounter
--- OUTSIDE RECORDS SUMMARY | 2022-01-04 15:51 | XMS_ITS | Encounter Summary ---
:1945 Author Organization [place] Address [facility] [place] [address] Care Team Providers Name Role Phone Eusebia [...] on filedocumented in this encounter Care Teams Side Boss Relationship Specialty Start Date End Date Eusebia Whitaker PCP - General Family Practice 09/25/19 [facility] [address] [place] [address] documented as of this encounter
--- OUTSIDE RECORDS SUMMARY | 2022-01-04 15:51 | XMS_ITS | Encounter Summary ---
:1945 Author Organization [place] Address [facility] [place] [address] Care Team Providers Name Role Phone Eusebia Whitaker Primary Care Provider Reason for Visit Reason Onset Date Comments Covid 19 Testing 09/29/2019 Encounter Details Date Type Department Care Team Description 09/29/2019 Orders Only [facility] Carson MD Encounter for Urgent Care [facility] screening for other [address] viral diseases [place], [place] [address] [address] [facility] [address] [facility] [phone] [place], [place] [address] (Wo rk) Social History Tobacco Use Types [...] (Coronavirus) by PCR (09/29/2019 4:05 PM CDT) [facility] Method Time Signature COVID-19 Nasopharyngeal 09/29/2019 [place] Virus PCR to 4:10 PM CDT [facility] Source [facility] COVID-19 Not Detected 09/30/2019 [facility] Virus PCR to 1:10 PM CDT [facility] Result [facility]ENTER [facility] Comment: Collection of multiple [...] N1,N2 gene targets of CoV2 and human ASSISTANT TO THE PRESIDENT as an internal control. A negative result [...] (Centers for Disease Control) Testing performed by [facility], Room 1-210, [address] [place] [address]. T his test was developed and its performance characteristics determined b y the [facility]. It has not been cleared or appr [...] MICRO GENERAL ORDERABL ES Performing Organization Address City/State/[facility] Code Phon e Number [facility] [address] [place] [phone] [facility] Room: [address] [address] [facility] documented in this encounter Visit Diagnoses Diagnosis Encounter for screening for other viral diseases documented in this encounter Care Teams Dandy Operator Relationship Specialty Start Date End Date Eusebia Whitaker PCP - General Family Practice 09/25/19 [facility] [address] [place] [address] documented as of this encounter
--- OUTSIDE RECORDS SUMMARY | 2022-01-04 15:51 | XMS_ITS | Encounter Summary ---
:1945 Author Organization [place] Address [facility] [place] [address] Care Team Providers Name Role Phone Eusebia [...] on filedocumented in this encounter Care Teams Mailing Machine Assistant Relationship Specialty Start Date End Date Eusebia Whitaker PCP - General Family Practice 09/25/19 [facility] [address] [place] [address] documented as of this encounter
--- OUTSIDE RECORDS SUMMARY | 2022-01-04 15:51 | XMS_ITS | Encounter Summary ---
:1945 Author Organization [place] Address [facility] [place] [address] Care Team Providers Name Role Phone Unavailable Primary Care Provider Unavailable Encounter Details Date Type Department Care Team Description 09/04/2019 Orders Only [facility] Audi Maurer MD Encounter for Nephrology Clinic [facility] salima almazan for other [facility] viral diseases [address] [facility] [address] [place] (Primary Dx) [place], [place] [phone] [place], [place] [address] (Wo rk) Social History Tobacco Use Types Packs/Day Years Used Date Never Assessed Sex Assigned at Date Recorded Not on file documented as of this encounter Plan of Treatment Not on filedocumented as of this encounter Results Asymptomatic COVID-19 Virus (Coronavirus) by PCR (09/29/2019 4:05 PM CDT) [facility] Method Time Signature COVID-19 Nasopharyngeal 09/29/2019 [place] Virus PCR to 4:10 PM CDT [facility] Source [facility] COVID-19 Not Detected 09/30/2019 [facility] Virus PCR to 1:10 PM CDT [facility] - [facility] Result CENTER LABORATORY Comment: [...] N1,N2 gene targets of CoV2 and human BEAN SNIPPER as an internal control. A negative result [...] (Centers for Disease Control) Testing performed by [facility], Room 1-210, [address] [place] [address]. T his test was developed and its performance characteristics determined b y the [facility]. It has not been cleared or [...] Organization Address City/State/ZIP Code Phon e Number [address] [address] [facility] Room: 1-210 [facility] [address] [place], [place] [address] [place] documented in this encounter Visit Diagnoses Diagnosis Encounter for screening for other viral diseases - Primary documented in this encounter
--- OUTSIDE RECORDS SUMMARY | 2022-01-04 15:51 | XMS_ITS | Encounter Summary ---
:1945 Author Organization [place] Address [facility] [place] [address] Care Team Providers Name Role Phone Eusebia [...] on filedocumented in this encounter Care Teams Desktop Operator Relationship Specialty Start Date End Date Eusebia Whitaker PCP - General Family Practice 09/25/19 [facility] [address] [place] [address] documented as of this encounter
--- OUTSIDE RECORDS SUMMARY | 2022-01-04 15:51 | XMS_ITS | Clinical Summary ---
:1945 Author Organization [place] Address [address] [place] [address] Care Team Providers Name Role Phone Eusebia [...] age to complete this topic Care Teams Fixed Income Portfolio Manager Relationship Specialty Start Date End Date Eusebia Whitaker PCP - General Family Practice 09/25/19 [facility] [address] [facility] [address]
--- OUTSIDE RECORDS SUMMARY | 2022-01-04 15:51 | XMS_ITS | Encounter Summary ---
:1945 Author Organization [facility] Address [address] [place] [address] Care Team Providers Name Role Phone Unavailable Primary Care Provider Unavailable Reason for Visit Appointment Request (Routine) - Closed Specialty Diagnoses / Procedures Referred By Contact Refer red To Contact Nephrology and Eusebia Whitaker M.D. Hypertension [address] [place] [address] Referral ID Status Reason Start Date Expiration Date Visits Requ ested Visits Authorized [id number] Closed 12/25/2019 12/24/2020 1 1 Encounter Details Date Type Department Care Team Description 01/07/2020 External Outreach Division of Reina Weeks And Chronic Kidney Disease Stage 4 (HCC) (Primary Dx); Nephrology and Randal Whitehead Jr., Chronic Kidn ey Disease Stage 4 Glomerular Filtration Rate 15-29 (HCC); Hypertension in D.O. Anemia Of Chronic Renal Disease; [place], [place] [address] [facility] Osteodystrophy Renal; [address] [place], [place] Diabetes Mellitus Type 2 (HC C); [place] [address] Chronic Right Heart Failure (HCC); [address] Proteinuria Social History Tobacco Use Types Packs/Day Years Used Date Smoking Tobacco: Never Assessed Sex Assigned at Date Recorded Not on file documented as of this encounter Consult Notes Randal Weeks Jr., D.O. - 01/07/2020 11:00 AM CDT Please see scanned in note under document viewer tab for the [place] [facility] [place] outreach visit from this date. documented in [...]
--- OUTSIDE RECORDS SUMMARY | 2022-01-04 15:51 | XMS_ITS | Encounter Summary ---
:1945 Author Organization [facility] Address [address] [place] [address] Care Team Providers Name Role Phone Unavailable Primary Care Provider Unavailable Reason for Visit Reason Comments steroid injection tomorrow Encounter Details Date Type Department Care Team Description 01/12/2020 Clinical Division of yolande Weeksi on Communication Nephrology and Randal Whitehead Jr., tomorrow Hypertension in D.O. [place], [place] [address] [facility] [address] [place] [address] [phone] Social History Tobacco Use Types Packs/Day Years Used Date Smoking Tobacco: Never Assessed Sex Assigned at Date Recorded Not on file documented as of this encounter Miscellaneous Notes Telephone Encounter - Yanet Cnoteh - 01/12/2020 10:41 AM CDT Patient's daughter, Irma, called. Patient is having a steroid injection in her back tomorrow, and Irma is wondering if that is ok for her to have given her recent diagnosis and all the medications she's on. Please call her at [phone]. Thanks documented in this encounter Plan of Treatment Scheduled Procedures Name Priority Associated Diagnoses Date/Time PLACEMENT ARTERIOVENOUS GRAFT UPPER Chronic Kidn ey Disease Stage 5 EXTREMITY Glomerular Filtration Rate Less Than 15 (HCC) documented as of this encounter Visit Diagnoses Not on filedocumented in this encounter
--- OUTSIDE RECORDS SUMMARY | 2022-01-04 15:51 | XMS_ITS | Encounter Summary ---
:1945 Author Organization [facility] Address [address] [place] [address] Care Team Providers Name Role Phone Unavailable Primary Care Provider Unavailable Reason for Visit Appointment Request (Routine) - Closed Specialty Diagnoses / Procedures Referred By Contact Refer red To Contact Nephrology and Hypertension Referral ID Status Reason Start Date Expiration Date Visits Requ ested Visits Authorized [id number] Closed 02/11/2020 02/10/2021 1 1 Encounter Details Date Type Department Care Team Description 02/18/2020 External Outreach Division of Wanda Weeks Ki dney Disease Stage 5 Glomerular Filtration Rate Less Than 15 (HCC) (Primary Dx); Nephrology and Randal Whitehead Jr., Hypertension And Chronic Kidney Disease Stage 5 (HCC); Hypertension in D.O. Anemia Of Chronic Renal Disease; [place], [place] [address] [facility] Osteodystrophy Renal; [address] [place], [place] Diabetes Mellitus Type 2 (HC C); [place] [address] Chronic Right Heart Failure (HCC); [id number] Proteinuria Social History Tobacco Use Types Packs/Day Years Used Date Smoking Tobacco: Never Assessed Sex Assigned at Date Recorded Not on file documented as of this encounter Progress Notes Randal Weeks Jr., D.O. - 02/18/2020 12:00 PM CST Please see scanned in note under document viewer tab for the [facility] [place] outreach visit from this date. OR [facility] DEVELOP[employer] REP documented in this encounter Plan of Treatment [...]
--- OUTSIDE RECORDS SUMMARY | 2022-01-04 15:51 | XMS_ITS | Encounter Summary ---
:1945 Author Organization [place] Address [address] [place] [address]. [place] [address] Care Team Providers Name Role Phone Eusebia Whitaker Primary Care Provider Reason for Visit Diagnostic Imaging Ultrasound (Routine) - Closed Specialty Diagnoses / Procedures Referred By Contact Refer red To Contact Diagnoses Chronic kidney disease, stage III (moderate) (H) Proteinuria, unspecified type Audi Maurer MD Procedures US Biopsy Renal [employer] [address] [place] [address] Referral ID Status Reason Start Date Expiration Date Visits Requ ested Visits Authorized [id number] Closed 09/04/2019 09/03/2020 1 1 Encounter Details Date Type Department Care Team Description 10/01/2019 [facility] Audi Maurer MD [employer] [address] [facility] [address] [place] [address] Chronic kidney disease, stage III (moder ate) (H); Encounter [facility] Imaging Non-Fv Credentialed Provider, Radiology Proteinuria, unspecified type [address] [place] [phone] Social History Tobacco Use Types Packs/Day Years [...] type documented in this encounter Care Teams Interior Designer Relationship Specialty Start Date End Date Eusebia Whitaker PCP - General Family Practice 09/25/19 [facility] [address] [place] [address] documented as of this encounter
--- OUTSIDE RECORDS SUMMARY | 2022-01-04 15:51 | XMS_ITS | Encounter Summary ---
:1945 Author Organization [place] Address [address] [facility] [place] [address] Care Team Providers Name Role Phone Eusebia Whitaker Primary Care Provider Encounter Details Date Type Department Care Team Description 09/04/2019 Medical Correspondence [facility] Scan, ORDER [employer] Info Mgmt Non-Provider [facility] [address] [place] [address] Social History Tobacco Use Types [...] on filedocumented in this encounter Care Teams Pecan Mallow Dipper Relationship Specialty Start Date End Date Eusebia Whitaker PCP - General Family Practice 09/25/19 [facility] [address] [place] [address] documented as of this encounter
--- OUTSIDE RECORDS SUMMARY | 2022-01-04 15:51 | XMS_ITS | Encounter Summary ---
:1945 Author Organization [place] Address [address] [place] [address] Care Team Providers Name Role Phone Eusebia Whitaker Primary Care Provider Reason for Visit Reason Onset Date Comments Pt. Information/instruction 09/30/2019 Encounter Details Date Type Department Care Team Description 09/30/2019 Telephone [facility] Kaelyn Lopez, RN Pt. [facility] s Information/instruction [address] [place] [address] Social History Tobacco Use Types [...] on filedocumented in this encounter Care Teams Greeting Card Editor Relationship Specialty Start Date End Date Eusebia Whitaker PCP - General Family Practice 09/25/19 [facility] [address] [place] [address] documented as of this encounter
--- OUTSIDE RECORDS SUMMARY | 2022-01-04 15:51 | XMS_ITS | Encounter Summary ---
:1945 Author Organization [place] Address [address] [place] [address] Care Team Providers Name Role Phone Eusebia Whitaker Primary Care Provider Encounter Details Date Type Department Care Team Description 09/04/2019 Medical Correspondence [facility] Scan, US GUIDED RENAL Health Info Mgmt Non-Provider BIOPSY ORDSamy Morales [facility] [address] [facility] [place] [address] Social History Tobacco [...] on filedocumented in this encounter Care Teams Train Caller Relationship Specialty Start Date End Date Eusebia Whitaker PCP - General Family Practice 09/25/19 [facility] [address] [place] [address] documented as of this encounter
== END 2021-12-17 11:30 | disposition home or self-care (01) ==
LOC: AMB 01-04 15:45
PROVIDERS: PCP Family Medicine; Visit Provider Emergency Medicine Emergency Medical Services
DX: R55 Syncope and collapse (principal)
CPT/HCPCS: A0425; A0427

== ENCOUNTER 2022-04-06 10:07 | Outpatient (CLI) | payer OTHER, SELFPAY ==
--- NOTE | 2022-04-06 11:00 | CRLHL7_ITS ---
For Patients: As a result of the Century Cures Act, medical imaging exams and procedure reports are released immediately into your electronic medical record. You may view this report before your referring provider. If you have questions, please contact your health care provider. Indication: ACUTE INFECTIVE ENDOCARDITIS Technique: Postcontrast CT abdomen and pelvis. 98 cc Isovue 370 intravenous contrast. Please note that all CT scans at this facility use dose modulation, iterative reconstruction, and/or weight-based dosing when appropriate to reduce radiation dose to as low as reasonably achievable. Comparison: 02/17/2019 CT Findings: Scarring is present within both lower lobes along with mild fibrotic changes. Stable simple cyst within the anterior liver dome. Visualized breast parenchyma appears normal. Dense vascular calcifications are present with ectasia. No aneurysm. No suspicious intrahepatic mass. Additional smaller cyst right hepatic lobe. Multiple bilateral renal cortical cysts are similar. No pancreatic lesion. Gallbladder normal. No calcified gallstones. No biliary obstruction. Spleen normal. Normal adrenal glands. No adenopathy. No bowel obstruction. No free air, free fluid or abscess. No uterine fibroid. No adnexal mass. Bladder is obscured by beam hardening artifact from left hip replacement hardware. Severe multilevel degenerative changes throughout the lumbar spine with rightward curvature. No fracture. Impression: No acute intra-abdominal or intrapelvic pathology. Please note that all CT scans at this facility use dose modulation, iterative reconstruction, and/or weight-based dosing when appropriate to reduce radiation dose to as low as reasonably achievable. Dictated by Jewel Nguyen MD @ 04/06/2022 12:15:57 PM (Electronically Signed)
== END 2022-04-06 10:08 | disposition home or self-care (01) ==
LOC: CT 10:11
PROVIDERS: PCP Family Medicine; Visit Provider Nurse Practitioner Adult Health
DX: I33.0 Acute and subacute infective endocarditis (principal)
CPT/HCPCS: 74177; Q9967

== ENCOUNTER 2022-07-10 23:13 | Outpatient (REF) | payer OTHER, SELFPAY ==
--- OUTSIDE RECORDS SUMMARY | 2022-07-10 19:03 | XMS_ITS | Continuity of Care Document ---
Author Name Unknown Organization [facility] Address [address] [place] [address]- Encounter 11/15/21 - 05/22/22 [facility] Care Coordination [address] [place] [address]- Allergies, Adverse Reactions, Alerts No Known Allergies Immunizations Given and Recorded Vaccine Date Status Refusal Reason SARS-CoV-2 (COVID-19) vax, unspecified 01/16/22 Re corded SARS-CoV-2 (COVID-19) vax, unspecified 01/20/21 Re corded SARS-CoV-2 (COVID-19) vax, unspecified 06/01/20 Re corded SARS-CoV-2 (COVID-19) vax, unspecified 05/11/20 Re corded influenza virus vaccine, inactivated 01/12/21 Spencer rded pneumococcal (PCV13) 08/19/15 Recorded pneumococcal (PPS23) 01/20/10 Recorded Medications acetaminophen 325 mg oral capsule 650 mg, Oral, QID, 0 Refill(s) Start Date: 12/13/21 Status: Ordered calcium carbonate 600 mg oral tablet, chewable 600 mg, Chewed, BID, 0 Refill(s) Start Date: 12/13/21 Status: Ordered Dialyvite 800 Oral, Daily, 0 Refill(s) Start Date: 08/19/21 Status: Ordered Eliquis 2.5 mg oral tablet 2.5 mg, Oral, BID, 0 Refill(s) Start Date: 12/13/21 Status: Ordered hydrALAZINE 25 mg oral tablet 25 mg = 1 tab, Oral, TID, 0 Refill(s) Start Date: 05/05/22 Status: Ordered isosorbide mononitrate 30 mg oral tablet, extended release 30 mg, Oral, BID, 0 Refill(s) Start Date: 08/19/21 Status: Ordered metoprolol tartrate 25 mg oral tablet 25 mg = 1 tab, Oral, BID, 0 Refill(s) Start Date: 05/05/22 Status: Ordered mirtazapine 15 mg oral tablet 15 mg = 1 tab, Oral, every day at bedtime, 0 Refill(s) Start Date: 05/05/22 Status: Ordered nystatin 100,000 units/g topical powder Topical, BID, 0 Refill(s) Start Date: 05/05/22 Status: Ordered ondansetron 4 mg oral tablet, disintegrating 4 mg, 0 Refill(s) Start Date: 11/14/21 Status: Ordered oxyCODONE 5 mg oral capsule 5 mg, Oral, every 4 hr, 0 Refill(s) Start Date: 12/13/21 Status: Ordered pantoprazole 40 mg oral delayed release tablet 40 mg, Oral, BID, 0 Refill(s) Start Date: 12/13/21 Status: Ordered senna 8.6 mg oral tablet 17.2 mg = 2 tab, Oral, BID, 0 Refill(s) Start Date: 05/05/22 Status: Ordered Problem List Condition Confirmation Course Effective Dates Status Health Status Informant Anemia of chronic renal failure Confirmed 01/07/20 Active Atrial fibrillation Confirmed Active Bacteriuria Confirmed Active Chronic kidney disease stage 5 due to hypertension Confirmed 01/07/20 Active Chronic right-sided heart failure Confirmed 01/07/20 Active Disturbance of consciousness Confirmed Active Endocarditis Confirmed Active Essential hypertension Confirmed 02/07/19 Active Hyperlipidemia Confirmed 02/07/19 Active Hyperparathyroidism due to renal insufficiency Confirmed 01/17/21 Active manager intermediate current use of non-steroidal anti-inflammatory drug Confirmed 02/07/19 Active Obstructive sleep apnea syndrome Confirmed 04/28/20 Active Peripheral artery disease Confirmed Active Proteinuria Confirmed 02/07/19 Active Renal osteodystrophy Confirmed 01/07/20 Active Type 2 diabetes mellitus Confirmed 01/07/20 Active Urinary tract infectious disease Confirmed 06/09/20 Active Patient Care team information Care Team Personnel Name: Randal Weeks Position: External Provider - Dual Rate Dealer Member Role: Dual Rate Dealer Address: Address: [address] [place] [id number]- Name: [place] [facility] (DVRon)Ashanti Position: External Provider - Clinic Member Role: Dialysis Center Address: Address: [address] [place] [id number]- Name: [facility] Library Clerk, Keira Position: External Provider Member Role: Spinner Iron Name: [facility] Position: External Provider Member Role: [facility] Facility Care Team Related Persons Name: Irma Go
--- OUTSIDE RECORDS SUMMARY | 2022-07-10 19:03 | XMS_ITS | Continuity of Care Document ---
Author Name Unknown Organization [facility] t[facility] Address [address] [place] [address]- Encounter 06/14/22 - 07/03/22 [facility] Care Coordination [address] [place] [address]- Allergies, Adverse Reactions, Alerts No Known Allergies [...] due to renal insufficiency Confirmed 01/17/21 Active [facility] current use of non-steroidal anti-inflammatory drug Confirmed 02/07/19 Active Obstructive sleep apnea syndrome Confirmed 04/28/20 Active Peripheral artery disease Confirmed Active Proteinuria Confirmed 02/07/19 Active Renal osteodystrophy Confirmed 01/07/20 Active Type 2 diabetes mellitus Confirmed 01/07/20 Active Urinary tract infectious disease Confirmed 06/09/20 Active Patient Care team information Care Team Personnel Name: Randal Weeks Position: External Provider - Workforce Specialist Member Role: Workforce Specialist Address: Address: [address] [place] [phone]- Name: Eugenia Skinner Position: Nurse - [facility]KD Member Role: Manager Instrumentation Name: [facility] Lex (Ron)Ashanti Position: External Provider - Clinic Member Role: Dialysis Center Address: Address: [address] [place] [id number]- Name: [facility] MinisterKeira Position: External Provider Member Role: Target Worker Name: [facility] Position: External Provider Member Role: Care Home Facility Care Team Related Persons Name: Irma Go
[2022-07-11 09:02] LABS: PCR FLU A Negative PCR FLU A (Negative); PCR FLU B Negative PCR FLU B (Negative); SARS PCR* ND (Negative)
== END 2022-07-10 23:14 | disposition home or self-care (01) ==
LOC: LAB 23:13
PROVIDERS: PCP Family Medicine; Visit Provider Nurse Practitioner Adult Health
DX: J10.1 Influenza due to other identified influenza virus with other respiratory manifestations (principal)
CPT/HCPCS: 87631

== ENCOUNTER 2022-07-12 16:55 | Outpatient (CLI) | payer OTHER, SELFPAY | END 2022-07-12 16:56 | disposition home or self-care (01) | LOC: AMB 07-16 15:54 | PROVIDERS: PCP Family Medicine; Visit Provider Family Medicine | DX: R50.9 Fever, unspecified (principal); R53.1 Weakness | CPT/HCPCS: A0425; A0427 ==

== ENCOUNTER 2022-07-20 09:46 | Outpatient (CLI) | payer OTHER, SELFPAY | END 2022-07-20 09:47 | disposition home or self-care (01) | LOC: WOUND 09:46 | PROVIDERS: PCP Family Medicine; Visit Provider Nurse Practitioner Family | DX: E11.621 Type 2 diabetes mellitus with foot ulcer (principal); L89.610 Pressure ulcer of right heel, unstageable; E11.622 Type 2 diabetes mellitus with other skin ulcer; L89.153 Pressure ulcer of sacral region, stage 3; E63.9 Nutritional deficiency, unspecified; Z48.02 Encounter for removal of sutures | CPT/HCPCS: 97602; 99214 ==

== ENCOUNTER 2022-09-28 09:51 | Outpatient (CLI) | payer OTHER, SELFPAY | END 2022-09-28 09:52 | disposition home or self-care (01) | LOC: WOUND 09:51 | PROVIDERS: PCP Family Medicine; Visit Provider Family Medicine | DX: L89.153 Pressure ulcer of sacral region, stage 3 (principal); S91.105A Unspecified open wound of left lesser toe(s) without damage to nail, initial encounter; L60.2 Onychogryphosis; L60.3 Nail dystrophy; E63.9 Nutritional deficiency, unspecified | CPT/HCPCS: 99214 ==

== ENCOUNTER 2022-10-12 12:56 | Outpatient (CLI) | payer OTHER, SELFPAY | END 2022-10-12 12:57 | disposition home or self-care (01) | LOC: WOUND 12:56 | PROVIDERS: PCP Family Medicine; Visit Provider Nurse Practitioner Family | DX: E11.622 Type 2 diabetes mellitus with other skin ulcer (principal); S81.801A Unspecified open wound, right lower leg, initial encounter; L89.153 Pressure ulcer of sacral region, stage 3 | CPT/HCPCS: 11042 ==

== ENCOUNTER 2022-10-26 09:12 | Outpatient (CLI) | payer OTHER, SELFPAY | END 2022-10-26 09:13 | disposition home or self-care (01) | LOC: WOUND 09:14 | PROVIDERS: PCP Family Medicine; Visit Provider Nurse Practitioner Family | DX: I87.311 Chronic venous hypertension (idiopathic) with ulcer of right lower extremity (principal); L97.819 Non-pressure chronic ulcer of other part of right lower leg with unspecified severity; S91.105A Unspecified open wound of left lesser toe(s) without damage to nail, initial encounter | CPT/HCPCS: 97597 ==

== ENCOUNTER 2022-11-09 09:35 | Outpatient (CLI) | payer OTHER, SELFPAY | END 2022-11-09 09:36 | disposition home or self-care (01) | LOC: WOUND 09:35 | PROVIDERS: PCP Family Medicine; Visit Provider Nurse Practitioner Family | DX: E11.622 Type 2 diabetes mellitus with other skin ulcer (principal); L89.893 Pressure ulcer of other site, stage 3 | CPT/HCPCS: 11042 ==

== ENCOUNTER 2022-11-23 09:14 | Outpatient (CLI) | payer OTHER, SELFPAY | END 2022-11-23 09:15 | disposition home or self-care (01) | LOC: WOUND 09:14 | PROVIDERS: PCP Family Medicine; Visit Provider Nurse Practitioner Family | DX: E11.621 Type 2 diabetes mellitus with foot ulcer (principal); L89.893 Pressure ulcer of other site, stage 3 | CPT/HCPCS: 97597 ==

== ENCOUNTER 2023-01-04 12:35 | Outpatient (CLI) | payer OTHER, SELFPAY | END 2023-01-04 12:36 | disposition home or self-care (01) | LOC: WOUND 12:36 | PROVIDERS: PCP Family Medicine; Visit Provider Nurse Practitioner Family | DX: E11.621 Type 2 diabetes mellitus with foot ulcer (principal); L89.893 Pressure ulcer of other site, stage 3; L60.2 Onychogryphosis; L60.3 Nail dystrophy; S31.109A Unspecified open wound of abdominal wall, unspecified quadrant without penetration into peritoneal cavity, initial encounter | CPT/HCPCS: 11720; 99212 ==

== ENCOUNTER 2023-01-18 08:35 | Outpatient (CLI) | payer OTHER, SELFPAY | END 2023-01-18 08:36 | disposition home or self-care (01) | LOC: WOUND 08:35 | PROVIDERS: PCP Family Medicine; Visit Provider Nurse Practitioner Family | DX: L89.893 Pressure ulcer of other site, stage 3 (principal); L89.153 Pressure ulcer of sacral region, stage 3; S91.105A Unspecified open wound of left lesser toe(s) without damage to nail, initial encounter | CPT/HCPCS: 99213 ==

== ENCOUNTER 2023-02-01 10:16 | Outpatient (CLI) | payer OTHER, SELFPAY | END 2023-02-01 10:17 | disposition home or self-care (01) | LOC: AMB 02-05 11:55 | PROVIDERS: PCP Family Medicine; Visit Provider Family Medicine | DX: Z49.01 Encounter for fitting and adjustment of extracorporeal dialysis catheter (principal) | CPT/HCPCS: A0425; A0429 ==

== ENCOUNTER 2023-02-01 10:37 | Emergency (ER) | payer OTHER, SELFPAY ==
[2023-02-01 10:44] VITALS: BP 146/64; PULSE 75; RESP 18; TEMP 36.8; O2SAT 95
--- NOTE | 2023-02-01 11:15 | ED_ITS ---
HPI - General Adult General Time Seen by Provider: 11:11 Date Seen: 02/01/23 Chief complaint: Unspecified Complaint, Adult Stated complaint: port replacement Time Seen by Provider: 02/01/23 11:11 Source: patient, family (Daughter Irma did come after the patient arrived.), EMS and RN notes reviewed Mode of arrival: EMS Limitations: no limitations History of Present Illness HPI narrative: Courtney is a very pleasant 77-year-old female brought in by EMS from her [facility] after she pulled out her dialysis catheter. Unfortunately our ED front office secretary took the phone call from the staff at the [facility]. It was not transferred to our nurses. EMS brought the patient here. She states that she does not know how she pulled it out. Was accidental. She has no pain complaints, she is not bleeding, has not been ill with anything. Related Data Home Medications Medication Instructions Recorded Confirmed atorvastatin 20 mg tablet 20 mg PO QPM 11/08/21 12/21/22 furosemide 20 mg tablet (Lasix) 20 mg PO BID 11/08/21 12/21/22 gabapentin 100 mg capsule 200 mg PO QPM 11/08/21 12/21/22 hydralazine 25 mg tablet 25 mg PO TID 11/08/21 12/21/22 hydralazine 50 mg tablet 50 mg PO TID 11/08/21 12/21/22 isosorbide mononitrate 30 mg 30 mg PO BID 11/08/21 12/21/22 tablet,extended release 24 hr oxybutynin chloride 5 mg tablet 5 mg PO BID PRN 11/08/21 12/21/22 B-complex with vitamin C 1 tab PO QDAY 11/09/21 12/21/22 acetaminophen 650 mg 650 mg PO .1-2X/Day 11/09/21 12/21/22 tablet,extended release calcium carbonate 600 mg calcium 1,500 mg PO BID 11/09/21 12/21/22 (1,500 mg) tablet cholecalciferol (vitamin D3) 50 2,000 unit PO DAILY 11/09/21 12/21/22 mcg (2,000 unit) capsule coenzyme Q10 200 mg capsule mg PO DAILY 11/09/21 12/21/22 ferrous sulfate 325 mg (65 mg mg PO DAILY 11/09/21 12/21/22 iron) tablet,delayed release isosorbide mononitrate 60 mg 30 mg PO BID 11/09/21 12/21/22 tablet,extended release 24 hr multivitamin (Multiple Vitamins 1 tab PO QDAY 11/09/21 12/21/22 tablet) vit tab PO 11/09/21 12/21/22 [id number] 500 mg-50 mg-25 mg-40 mg tablet (Bioflex) lorazepam 0.5 mg tablet (Ativan) 0.5 mg PO QID PRN 07/25/22 12/21/22 Previous Rx's Medication Instructions Recorded carvedilol 25 mg tablet 37.5 mg (1.5 x 25 mg) PO BID #300 11/14/21 tabs omeprazole 20 mg capsule,delayed 20 mg PO BID #60 caps 05/17/22 release Allergies Allergy/AdvReac Type Severity Reaction Status Date / Time simvastatin AdvReac Intermediate Joint Pain Verified 12/21/22 12:54 Review of Systems Narrative: As per HPI. [facility] Medical History (Updated 02/01/23 @ 12:29 by Vicky Lewis MD) POLST (Physician Orders for Life-Sustaining Treatment) ?Z78.9 - Other specified health status (ICD-10) Stage 5 chronic kidney disease due to hypertension ?I12.0 - Hypertensive chronic kidney disease with stage 5 chronic kidney disease or end stage renal disease (ICD-10) ?N18.5 - Chronic kidney disease, stage 5 (ICD-10) Anemia ?D64.9 - Anemia, unspecified (ICD-10) Surgical History History of total hip arthroplasty ?Z96.649 - Presence of unspecified artificial hip joint (ICD-10) Status post hip replacement ?Z96.649 - Presence of unspecified artificial hip joint (ICD-10) History of dilation and curettage (12/08/10) ?Z98.890 - Other specified postprocedural states (ICD-10) History of colonoscopy ?Z98.890 - Other specified postprocedural states (ICD-10) History of carotid endarterectomy ?Z98.890 - Other specified postprocedural states (ICD-10) Social History Smoking Status: Never smoker Do you use any of these nicotine containing products: None Second hand tobacco smoke exposure: No How often do you have a drink containing alcohol: monthly or less How many standard drinks containing alcohol do you have on a typical day: 1 or 2 How often do you have six or more drinks on one occasion: Never AUDIT-C Alcohol total score: 1 Non-prescribed substance use: denies use Caffeine: No service: No Exam Const: Vital Signs, click to edit/add: Vital Signs - 24 hr 02/01/23 10:44 Temperature 98.3 F Pulse Rate [Left P ulse Oximeter] 75 Respiratory Rate 18 Blood Pressure [Ri ght Upper Arm] 146/64 H Pulse Oximetry 95 Oxygen Delivery Me thod Room Air This 77-year-old female is lying in bed, is alert, interactive, no apparent distress. Conjugate gaze, speech is normal. She has a gauze over the site, this is lifted off, there is no bleeding or any blood on the gauze on the right upper chest wall. CV regular rate and rhythm, lungs are clear, abdomen is soft, nontender nondistended. Moving extremities, following commands. Documenting provider has reviewed patient's vital signs: yes Course Course ED Course: Will contact [facility] to discuss catheter replacement. It is nothing that we can address here. Consultations Consultation #1: Spoke with Siomara CHAPMAN in the transfer center. This patient is otherwise stable, just needs her catheter placed. She is going to see what she can arrange. Both [facility] in [place] are on full divert but she understands that this patient needs an intervention done. She is wondering if she could potentially get this patient scheduled through [facility] to have her catheter placed and then have dialysis there tomorrow. She will see which she can do an contact us when she has made arrangements. Time: 11:16 Consultation #2: Called the transfer center back, talked to Rafaela. Let her know that there was supposedly a Cirilo from the dialysis access center that was stating they were awaiting her there today. We will work to see if we can figure this out further. She is going to let Siomara know. Time: 11:28 Consultation #3: Katerina from the transfer center stated that she was going to go to [facility] tomorrow. She is waiting an outpatient call back number and will let us know what that is. Katerina did call in give staff a phone number to radiology scheduling outpatient. This is [phone]. Time: 11:42 Vital Signs Vital signs: Initial Vital Signs Temperature 98.3 F 02/01/23 10:44 Temperature Source Temporal Artery Scan 02/01/23 10:44 Pulse Rate 75 02/01/23 10:44 Respiratory Rate 18 02/01/23 10:44 Blood Pressure 146/64 H 02/01/23 10:44 Blood Pressure Mean 91 02/01/23 10:44 Blood Pressure Position Sitting 02/01/23 10:44 Pulse Oximetry 95 02/01/23 10:44 Oxygen Delivery Method Room Air 02/01/23 10:44 Vital Signs Temperature 98.3 F 02/01/23 10:44 Pulse Rate 75 02/01/23 10:44 Respiratory Rate 18 02/01/23 10:44 Blood Pressure 146/64 H 02/01/23 10:44 Pulse Oximetry 95 02/01/23 10:44 Oxygen Delivery Method Room Air 02/01/23 10:44 Temperature 98.3 F 02/01/23 10:44 Pulse Rate 75 02/01/23 10:44 Respiratory Rate 18 02/01/23 10:44 Blood Pressure 146/64 H 02/01/23 10:44 Pulse Oximetry 95 02/01/23 10:44 Oxygen Delivery Method Room Air 02/01/23 10:44 Discharge Plan Discharge Clinical Impression: End stage renal disease on dialysis Patient Disposition: Home w/ Parent or Adult Condition: Stable Additional Instructions: Patient needs to present at 7:00 a.m. tomorrow morning at [facility] at the MD desk. This is on the main floor, the mean Radiology desk, is reportedly passed the pharmacy. She is to check in there to have her dialysis catheter replaced by [facility]. The phone number to the radiology scheduling is [phone] if there are further questions or issues. I presume they will want her NPO after midnight. You will have to contact [facility] to discuss dialysis arrangements, work with the social media project manager from [facility] to see what will happen for dialysis tomorrow. Prescriptions: No Action cholecalciferol (vitamin D3) 50 mcg (2,000 unit) capsule 2,000 unit PO DAILY coenzyme Q10 200 mg capsule PO DAILY ferrous sulfate 325 mg (65 mg iron) tablet,delayed release (DR/EC) PO DAILY calcium carbonate 600 mg calcium (1,500 mg) tablet 1,500 mg PO BID acetaminophen 650 mg tablet extended release 650 mg PO .1-2X/Day isosorbide mononitrate 60 mg tablet extended release 24 hr 30 mg PO BID B-complex with vitamin C Tablet 1 tab PO QDAY Bioflex 303-42-79-40 mg tablet PO multivitamin [Multiple Vitamins] Tablet 1 tab PO QDAY isosorbide mononitrate 30 mg tablet extended release 24 hr 30 mg PO BID hydralazine 50 mg tablet 50 mg PO TID Rx Instructions: Take 50mg with a 25mg tabs- total 75mg TID hydralazine 25 mg tablet 25 mg PO TID Rx Instructions: Take a total of 75mg TID furosemide [Lasix] 20 mg tablet 20 mg PO BID atorvastatin 20 mg tablet 20 mg PO QPM gabapentin 100 mg capsule 200 mg PO QPM oxybutynin chloride 5 mg tablet 5 mg PO BID PRN carvedilol 25 mg tablet 37.5 mg PO BID Qty: 300 3RF Rx Instructions: must administer with a meal/food omeprazole 20 mg capsule,delayed release(DR/EC) 20 mg PO BID Qty: 60 11RF lorazepam [Ativan] 0.5 mg tablet 0.5 mg PO QID PRN Follow Up/Referrals: Erickson Vinson MD [Primary Care Provider] - Stand Alone [facility]: [facility] Inst[facility]
--- NOTE | 2023-02-01 12:47 | ED.NURSE ---
Report called to [facility] with plan regarding appointment tomorrow and outpatient appointment today.
== END 2023-02-01 12:59 | disposition home or self-care (01) ==
PROVIDERS: Emergency Provider Family Medicine; PCP Family Medicine
DX: N18.6 End stage renal disease (principal); Z99.2 Dependence on renal dialysis
CPT/HCPCS: 93306; 99282; 99283

== ENCOUNTER 2023-02-02 06:34 | Outpatient (CLI) | payer OTHER, SELFPAY | END 2023-02-02 06:35 | disposition home or self-care (01) | LOC: AMB 02-06 15:15 | PROVIDERS: PCP Family Medicine; Visit Provider Family Medicine | DX: T82.898S Other specified complication of vascular prosthetic devices, implants and grafts, sequela (principal); Z99.3 Dependence on wheelchair; Z99.2 Dependence on renal dialysis | CPT/HCPCS: A0425; A0429 ==

== ENCOUNTER 2023-06-04 08:01 | Outpatient (CLI) | payer OTHER, SELFPAY | END 2023-06-04 08:02 | disposition home or self-care (01) | LOC: AMB 06-14 11:57 | PROVIDERS: PCP Family Medicine; Visit Provider Emergency Medicine | DX: K92.0 Hematemesis (principal) | CPT/HCPCS: A0425; A0429 ==

== ENCOUNTER 2023-06-14 13:17 | Outpatient (CLI) | payer OTHER, SELFPAY | END 2023-06-14 13:18 | disposition home or self-care (01) | LOC: WOUND 13:17 | PROVIDERS: PCP Family Medicine; Visit Provider Nurse Practitioner Family | DX: L89.890 Pressure ulcer of other site, unstageable (principal); R26.9 Unspecified abnormalities of gait and mobility; Z99.3 Dependence on wheelchair | CPT/HCPCS: 97602; G0463 ==

== ENCOUNTER 2023-06-22 13:39 | Outpatient (CLI) | payer OTHER, SELFPAY | END 2023-06-22 13:40 | disposition home or self-care (01) | LOC: WOUND 13:39 | PROVIDERS: PCP Family Medicine; Visit Provider Nurse Practitioner Family | DX: L89.890 Pressure ulcer of other site, unstageable (principal); Z99.3 Dependence on wheelchair | CPT/HCPCS: 87070; 87186; 97597 ==

== ENCOUNTER 2023-06-25 14:02 | Outpatient (CLI) | payer OTHER, SELFPAY | END 2023-06-25 14:03 | disposition home or self-care (01) | LOC: AMB 06-26 12:42 | PROVIDERS: PCP Family Medicine; Visit Provider Family Medicine | DX: R41.82 Altered mental status, unspecified (principal) | CPT/HCPCS: A0425; A0427 ==

== ENCOUNTER 2023-06-25 14:30 | Emergency (ER) | payer OTHER, SELFPAY ==
[2023-06-25] VITALS (55 sets, daily range): BP systolic 166–207; BP diastolic 74–157; PULSE 74–95; RESP 20–22; TEMP 36.3–37.1; O2SAT 63–100; BMI 29.2
--- NOTE | 2023-06-25 14:37 | CT_ITS ---
Patient: CYNTHIA HOLBROOK Facility:?[facility] Patient ID:?[id number] Site Patient ID:?[id number]. Site :?[id number] Study:?CT-Head WITHOUT STROKE CODE-06/25/2023 2:49:40 PM Ordering Physician:JAIME Final Report: INDICATION: ALTERED MENTAL STATUS, EYES DEVIATED UP INTO THE RIGHT TECHNIQUE: CT of the head without contrast. Coronal and sagittal reformats. Bone and soft tissue algorithms. COMPARISON: No prior studies available for comparison at this institution. FINDINGS: No acute intracranial hemorrhage or extra-axial collection. No evidence of acute cortical infarction. No mass effect or midline shift. Mild generalized cerebral/cerebellar parenchymal volume loss. Mild regions of decreased attenuation within the periventricular and subcortical white matter of both cerebral hemispheres most likely reflects chronic microvascular ischemic disease and age related change in this patient. Vascular calcifications within the carotid siphons. A hyperdense focus along the basilar artery may represent atherosclerotic calcifications versus thromboembolus (series 5, image 15). Orbital contents are normal. No calvarial fractures. No lytic or sclerotic osseous lesions within the calvarium or skull base. Scalp and other imaged soft tissue structures are normal. Mastoid air cells are clear. Findings discussed with Dr. Jade at 3:09 p.m. IMPRESSION: 1. No evidence of acute ischemia in the brain parenchyma. No hemorrhage. No mass effect. 2. A hyperdense focus along the basilar artery may represent atherosclerotic calcifications versus thromboembolus. Moderate atherosclerosis at the carotid siphons. 3. Image quality is degraded by motion artifact. 4. Mild parenchymal volume loss and chronic small vessel disease. Please note that all CT scans at this facility use dose modulation, iterative reconstruction, and/or weight-based dosing when appropriate to reduce radiation dose to as low as reasonably achievable. Dictated by Jewel Knapp MD @ 06/25/2023 3:11:39 PM Signed by:?Jewel Knapp MD @06/25/2023 3:11:39 PM (Electronic Signature)
[2023-06-25] MEDS: ONDANSETRON 2 MG/ML inj 4 MG IVP (14:58)
--- NOTE | 2023-06-25 15:12 | XR_ITS ---
Patient: CYNTHAI HOLBROOK Facility:?[facility] Patient ID:?[id number] Site Patient ID:?[id number]. Site :?[id number] Study:?XRay-Chest 1V PORTABL-06/25/2023 6:43:05 PM Ordering Physician:JAIME Final Report: INDICATION: TACHYPNEIC, VOMITING. TECHNIQUE: Chest 1 views. COMPARISON: None. FINDINGS: Cardiovascular and mediastinum: Cardiomediastinal silhouette is within normal limits. Calcific atherosclerosis of the aorta. Right-sided central venous catheter with distal tip at the right atrium. Lungs and pleural spaces: Low lung volumes with basilar opacities, likely atelectasis. No sign of pleural effusion. No pneumothorax. Bones and soft tissues: No significant findings. IMPRESSION: No acute cardiopulmonary process identified. Dictated by Richard Bhakta MD @ 06/25/2023 7:44:09 PM Signed by:?Richard Bhakta MD @06/25/2023 7:44:09 PM (Electronic Signature)
--- NOTE | 2023-06-25 15:13 | ED.GENADULT ---
HPI - General Adult General Chief complaint: Altered Mental Status Stated complaint: stroke Time Seen by Provider: 06/25/23 14:36 History of Present Illness HPI narrative: Patient had full run at dialysis today. She was reported to be in and out of consciousness at [facility] and EMS was called . Patient's daughter reports infection in left foot wound and different mental status since being on all the medications but reports nothing like today. Patient will not respond to any verbal commands and only responds to painful stimuli . FSG per EMS was 89. 78-year-old woman presenting to the emergency department via EMS activating stroke code for altered mental status. Apparently sometime between 130 and to around time of dialysis became less interactive. Some shaking. Eyes rolled up. Also vomiting what appears to be stained with blood like liquid. Ms. Berry herself is not offering any information. She is currently being treated for chronic ulcers through the wound clinic. Daughter reports that did grow Proteus from recent swab; confirmed in chart review. Is not noted to have fevers. Does have diabetes and hypertension and stage 5 kidney disease again receiving regular dialysis. 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 Was ?clipped?. 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 No fevers measured recently. Is not complaining of any pain though clearly in pain as I go to evaluate her lower extremities. Nonambulatory currently. Looks like was initiated on doxycycline recently. Has refused medications generally yesterday and today Related Data Home Medications Medication Instructions Recorded Confirmed atorvastatin 20 mg tablet 20 mg PO QPM 11/08/21 03/20/23 furosemide 20 mg tablet (Lasix) 20 mg PO BID 11/08/21 03/20/23 gabapentin 100 mg capsule 200 mg PO QPM 11/08/21 03/20/23 hydralazine 25 mg tablet 25 mg PO TID 11/08/21 03/20/23 hydralazine 50 mg tablet 50 mg PO TID 11/08/21 03/20/23 isosorbide mononitrate 30 mg 30 mg PO BID 11/08/21 03/20/23 tablet,extended release 24 hr oxybutynin chloride 5 mg tablet 5 mg PO BID PRN 11/08/21 03/20/23 B-complex with vitamin C 1 tab PO QDAY 11/09/21 03/20/23 acetaminophen 650 mg 650 mg PO .1-2X/Day 11/09/21 03/20/23 tablet,extended release calcium carbonate 600 mg calcium 1,500 mg PO BID 11/09/21 03/20/23 (1,500 mg) tablet cholecalciferol (vitamin D3) 50 2,000 unit PO DAILY 11/09/21 03/20/23 mcg (2,000 unit) capsule coenzyme Q10 200 mg capsule mg PO DAILY 11/09/21 03/20/23 ferrous sulfate 325 mg (65 mg mg PO DAILY 11/09/21 03/20/23 iron) tablet,delayed release isosorbide mononitrate 60 mg 30 mg PO BID 11/09/21 03/20/23 tablet,extended release 24 hr multivitamin (Multiple Vitamins 1 tab PO QDAY 11/09/21 03/20/23 tablet) vit tab PO 11/09/21 03/20/23 [id number] 500 mg-50 mg-25 mg-40 mg tablet (Bioflex) lorazepam 0.5 mg tablet (Ativan) 0.5 mg PO QID PRN 07/25/22 03/20/23 Previous Rx's Medication Instructions Recorded carvedilol 25 mg tablet 37.5 mg (1.5 x 25 mg) PO BID #300 11/14/21 tabs omeprazole 20 mg capsule,delayed 20 mg PO BID #60 caps 05/17/22 release Allergies Allergy/AdvReac Type Severity Reaction Status Date / Time simvastatin AdvReac Intermediate Joint Pain Verified 03/20/23 10:57 Review of Systems Status of ROS: Reports: unobtainable due to mental status [facility] Medical History POLST (Physician Orders for Life-Sustaining Treatment) ?Z78.9 - Other specified health status (ICD-10) Stage 5 chronic kidney disease due to hypertension ?I12.0 - Hypertensive chronic kidney disease with stage 5 chronic kidney disease or end stage renal disease (ICD-10) ?N18.5 - Chronic kidney disease, stage 5 (ICD-10) Anemia ?D64.9 - Anemia, unspecified (ICD-10) Surgical History History of total hip arthroplasty ?Z96.649 - Presence of unspecified artificial hip joint (ICD-10) Status post hip replacement ?Z96.649 - Presence of unspecified artificial hip joint (ICD-10) History of dilation and curettage (12/08/10) ?Z98.890 - Other specified postprocedural states (ICD-10) History of colonoscopy ?Z98.890 - Other specified postprocedural states (ICD-10) History of carotid endarterectomy ?Z98.890 - Other specified postprocedural states (ICD-10) Social History Smoking Status: Never smoker Do you use any of these nicotine containing products: None Second hand tobacco smoke exposure: No How often do you have a drink containing alcohol: monthly or less How many standard drinks containing alcohol do you have on a typical day: 1 or 2 How often do you have six or more drinks on one occasion: Never AUDIT-C Alcohol total score: 1 Non-prescribed substance use: denies use Caffeine: No service: No Exam Narrative: Exam Narrative: I meet this patient initially in the back all in her weight a head CT. There is an emesis bag with merge liquid contained. She appears to be stiffling vomitus from her mouth. Will not open her mouth. There is small amount of dry blood at the left ear. Head looks atraumatic. Pupils are 3 mm and equal and eyes are deviated upward to the right somewhat. She does not respond to questioning. EMS had reported that will drift off and then alert to sternal rub but not communicating. Facies appear to be symmetrical. Lungs she is mildly labored and tachypneic. Heart is in an elevated rate regular rhythm. Distant. Abdomen is soft she might have some tenderness in the epigastrium but that is not consistent. Does have good tone in both upper extremities. There is some medial deviation bilateral hands and the MCP joints. She will not open her mouth for evaluation. Examination of the legs with padded boots. There is slightly blood-stained dressing and posterior left lower leg with open ulcer. No inflammatory changes are present here. This area appears to be quite tender. Daughter notes her neuropathy. She does sit up and yells in pain. Similar to examination of the right but without open lesion appreciated. She does have dialysis access at the right upper chest. Const: Vital Signs, click to edit/add: Vital Signs - 24 hr 06/25/23 14:37 06/25/23 14:52 06/25/23 14:53 Temperature 97.4 F L Pulse Rate Pulse Rate [Pulse Oximeter] 84 Respiratory Rate 22 Blood Pressure 178/92 H Blood Pressure [Le ft Upper Arm] 191/157 H Pulse Oximetry 99 Oxygen Delivery Me thod Room Air 06/25/23 14:58 06/25/23 15:01 06/25/23 15:02 Temperature Pulse Rate 94 95 87 Pulse Rate [Pulse Oximeter] Respiratory Rate Blood Pressure 183/77 H Blood Pressure [Le ft Upper Arm] Pulse Oximetry 100 100 99 Oxygen Delivery Me thod 06/25/23 15:15 06/25/23 15:20 06/25/23 15:22 Temperature Pulse Rate 84 90 Pulse Rate [Pulse Oximeter] Respiratory Rate 20 Blood Pressure 190/82 H Blood Pressure [Le ft Upper Arm] Pulse Oximetry 98 100 100 Oxygen Delivery Me thod 06/25/23 15:30 06/25/23 15:40 06/25/23 15:45 Temperature Pulse Rate 95 87 Pulse Rate [Pulse Oximeter] Respiratory Rate Blood Pressure Blood Pressure [Le ft Upper Arm] 179/101 H Pulse Oximetry 100 100 100 Oxygen Delivery Me thod 06/25/23 15:46 06/25/23 15:50 06/25/23 15:54 Temperature Pulse Rate 88 93 Pulse Rate [Pulse Oximeter] Respiratory Rate Blood Pressure 198/105 H Blood Pressure [Le ft Upper Arm] Pulse Oximetry 100 100 95 Oxygen Delivery Me thod 06/25/23 16:00 06/25/23 16:02 06/25/23 16:10 Temperature Pulse Rate 87 85 Pulse Rate [Pulse Oximeter] Respiratory Rate Blood Pressure 189/83 H Blood Pressure [Le ft Upper Arm] Pulse Oximetry 100 100 100 Oxygen Delivery Me thod 06/25/23 16:12 06/25/23 16:15 06/25/23 16:20 Temperature Pulse Rate 88 90 Pulse Rate [Pulse Oximeter] Respiratory Rate Blood Pressure 199/85 H Blood Pressure [Le ft Upper Arm] Pulse Oximetry 100 96 100 Oxygen Delivery Me thod 06/25/23 16:22 06/25/23 16:31 06/25/23 16:32 Temperature Pulse Rate 85 86 Pulse Rate [Pulse Oximeter] Respiratory Rate Blood Pressure 207/98 H 205/88 H Blood Pressure [Le ft Upper Arm] Pulse Oximetry 63 L 84 L Oxygen Delivery Me thod 06/25/23 16:40 06/25/23 16:42 06/25/23 16:46 Temperature Pulse Rate 84 Pulse Rate [Pulse Oximeter] Respiratory Rate Blood Pressure 203/110 H Blood Pressure [Le ft Upper Arm] Pulse Oximetry 98 97 Oxygen Delivery Me thod 06/25/23 16:53 06/25/23 17:00 06/25/23 17:05 Temperature Pulse Rate 89 Pulse Rate [Pulse Oximeter] Respiratory Rate Blood Pressure Blood Pressure [Le ft Upper Arm] Pulse Oximetry 100 100 100 Oxygen Delivery Me thod 06/25/23 17:15 06/25/23 17:21 06/25/23 17:25 Temperature Pulse Rate 91 Pulse Rate [Pulse Oximeter] Respiratory Rate Blood Pressure Blood Pressure [Le ft Upper Arm] Pulse Oximetry 96 100 100 Oxygen Delivery Me thod 06/25/23 17:30 06/25/23 17:35 06/25/23 17:41 Temperature Pulse Rate Pulse Rate [Pulse Oximeter] Respiratory Rate Blood Pressure Blood Pressure [Le ft Upper Arm] Pulse Oximetry 100 100 100 Oxygen Delivery Me thod 06/25/23 17:45 06/25/23 17:50 06/25/23 17:52 Temperature Pulse Rate Pulse Rate [Pulse Oximeter] Respiratory Rate Blood Pressure Blood Pressure [Le ft Upper Arm] Pulse Oximetry 100 100 100 Oxygen Delivery Me thod 06/25/23 18:00 06/25/23 18:03 06/25/23 18:10 Temperature Pulse Rate Pulse Rate [Pulse Oximeter] Respiratory Rate Blood Pressure Blood Pressure [Le ft Upper Arm] Pulse Oximetry 100 88 100 Oxygen Delivery Me thod 06/25/23 18:21 06/25/23 18:22 06/25/23 18:31 Temperature Pulse Rate Pulse Rate [Pulse Oximeter] Respiratory Rate Blood Pressure Blood Pressure [Le ft Upper Arm] Pulse Oximetry 100 100 89 Oxygen Delivery Me thod 06/25/23 18:32 06/25/23 18:40 Temperature Pulse Rate Pulse Rate [Pulse Oximeter] Respiratory Rate Blood Pressure Blood Pressure [Le ft Upper Arm] Pulse Oximetry 100 100 Oxygen Delivery Me thod Documenting provider has reviewed patient's vital signs: yes Course Vital Signs Vital signs: Initial Vital Signs Pulse Oximetry 99 06/25/23 14:37 Vital Signs Pulse Oximetry 99 06/25/23 14:37 Temperature 97.4 F L 06/25/23 14:53 Pulse Rate 91 06/25/23 17:15 Respiratory Rate 20 06/25/23 15:15 Blood Pressure 203/110 H 06/25/23 16:42 Pulse Oximetry 100 06/25/23 18:40 Oxygen Delivery Method Room Air 06/25/23 14:53 Medications Administered Medications: Generic Name Dose Route Start Last Admin Trade Name Freq PRN Reason Stop Dose Admin Lorazepam 0.25 mg 06/25/23 18:09 06/25/23 18:54 Lorazepam 2 Mg/Ml Inj IVP 06/25/23 18:10 0.25 mg ONCE ONE Administration Discontinued Medications Generic Name Dose Route Start Last Admin Trade Name Freq PRN Reason Stop Dose Admin Sodium Chloride 500 mls @ 500 mls/hr 06/25/23 16:33 06/25/23 18:10 0.9 % Sodium Chloride 500 Ml IV 06/25/23 17:32 500 mls/hr .Q1H ONE Administration Ondansetron HCl 4 mg 06/25/23 14:41 06/25/23 14:58 Ondansetron 2 Mg/Ml Inj IVP 06/25/23 14:42 4 mg ONCE ONE Administration Pantoprazole Sodium 40 mg 06/25/23 17:31 06/25/23 18:10 Pantoprazole Sodium 40 Mg Inj IVP 06/25/23 17:32 40 mg ONCE ONE Administration Medical Decision Making MDM Narrative Medical decision making narrative: I did meet Ms. Berry and EMS in the back bui and accompanied into head CT appearing as in exam. Code stroke had been activated. This is a somewhat puzzling presentation. I feel unable to really do an NIH stroke scale properly. Following noncontrast head CT, I discussed this case with Stroke Neuro. Would like to have CT angiography of head and neck looking for large vessel occlusion. Anticipating needing dialysis then to pull off fluid/contrast. Symptoms might be GI bug amplified already complicated past medical. Will also continue to monitor. Gastric fluid is indeed positive for blood. Has been ordered for Zofran and 0.5 L mL bolus of fluid. Have small gauge IV in right hand. Lower dose Protonix for apparent GI bleed 161 --Has had no further episodes of emesis on my reassessment. Does easily alert other than head back on pillow turned to the right as we are continuing to try to get better access for IV study. May need EJ or central line. Did discuss this further with Stroke Neuro given access difficulties. At same time discussing access options with staff here and considering placing central line. Ultimately discussing it with surgeon recommended against doing this and I would say furthermore has had no need for pressor support. She is surely however dehydrated. Options per Stroke Neuro might be MR noncontrast imaging of head and neck. Will try to proceed with that time permitting. Courtney is alert just not communicating. Has been demonstrating some discomfort on repeat exam in the epigastrium. I would have more concerns of potential worsening of an upper GI bleed more than stroke issue here. I have let blood pressure remain somewhat elevated at 200/100 most recently particularly if experiencing thrombotic event in her head. I'm aware that there is a history of bleeding varices. Has been accepted to [facility] to neuro ICU with altered mental status. Pending results of non contrasted MRI of head and neck at this time. I have been concerned about her holding still simply for this study. Was premedicated with 0.25mg of lorazepam; this might help blood pressures as well. Hemoglobin of 9.1 is consistent with prior. Creatinine 2.4. Sodium 132 potassium 3.2 Labs drawn from earlier today prior to dialysis show phosphorus 7.5 potassium of 5.6 and sodium of 125 and magnesium of 3.1 Pending transport and completion of MR studies. Will be handed off at change of shift Medical Records Medical records reviewed: Yes I reviewed the patient's medical records Lab Data Lab results reviewed: Yes I reviewed the patient's lab results Labs: Lab Results 06/25/23 06/25/23 06/25/23 Range/Units 14:40 15:11 15:18 WBC 9.15 (4.50-11.00) K/uL RBC 3.12 L (4.00-5.20) m/uL Hgb 9.1 L (12.0-16.0) gm/dL Hct 27.2 L (33.0-51.0) % MCV 87 (80-100) fL MCH 29 (26-34) pg MCHC 34 (32-36) gm/dL RDW Coeff of Dutch 16.0 H (11.5-15.5) % Plt Count 404 (140-440) K/uL Neut % (Auto) 89.2 H (42.0-72.0) % Lymph % (Auto) 5.9 L (20-44) % [place] % (Auto) 3.6 (0.0-11.0) % Eos % (Auto) 0.0 (0.0-7.0) % Baso % (Auto) 0.2 (0.0-3.0) % Neut # (Auto) 8.20 H (1.7-7.0) K/uL Lymph # (Auto) 0.50 L (0.90-2.90) K/uL [place] # (Auto) 0.30 (0.00-0.90) K/UL Eos # (Auto) 0.00 (0.00-0.50) K/uL Baso # (Auto) 0.02 (0.00-0.30) K/uL Abs Immat Gran (auto) 0.10 (0.00-0.30) K/uL Imm/Tot Granulo (auto) 1.1 % INR 1.18 H (0.91-1.10) APTT 32 (23-33) Seconds Sodium 132 L (135-149) mmol/L Potassium 3.2 L (3.6-5.1) mmol/L Chloride 93 L (96-114) mmol/L Carbon Dioxide 22 (20-32) mmol/L Anion Gap 17 H (7-15) mEq/L BUN 75 H (7-30) mg/dL Creatinine 2.4 H (0.5-1.5) mg/dL Estimated Creat Clear 15.47 Estimated GFR 20 ml/min Glucose 180 H (60-115) mg/dL Calcium 9.8 (8.4-10.6) mg/dL Total Bilirubin 0.8 (0.1-1.5) mg/dL Direct Bilirubin 0.8 H (0.0-0.5) mg/dL AST 26 (12-35) U/L ALT 16 (4-35) U/L Alkaline Phosphatase 119 (40-150) U/L Total Protein 8.8 H (6.0-8.3) g/dL Albumin 4.5 (3.3-5.0) g/dL Gastric Fluid pH Not Reportable Gastric Occult Blood POSITIVE SARS-CoV-2 (PCR) Negative SARS-CoV-2 (Negative) Influenza Type A (PCR) Negative PCR FLU A (Negative) Influenza Type B (PCR) Negative PCR FLU B (Negative) RSV (PCR) Negative PCR RSV (Negative) POC Troponin I 0.03 (0.01-0.04) ng/ml ECG Data Attestation: I personally reviewed and interpreted this ECG as follows: (Sinus rhythm. LVH. rate of 98. PACs) Critical Care Time Critical Care Time Critical Care Time: Yes Attestation: The patient required my highest level preparedness to intervene emergently and I personally spent this critical care time directly and personally managing the patient. This critical care time included: Obtaining a history; Examining the patient; Pulse oximetry; Ordering and reviewing of studies; Arranging urgent treatment with development of a management plan; Evaluation of patients response to treatment; Frequent reassessment discussions with other providers. This critical care time was performed to assess and manage the high probability of imminent life-threatening deterioration that could result in multiorgan failure. It was exclusive of separate billable procedures and treating other patients and teaching time. Total Critical Care Time in Minutes: 90 Discharge Plan Discharge Clinical Impression: Altered mental status, Renal failure, Upper gastrointestinal bleeding, Vomiting, Hypertensive urgency Patient Disposition: [facility] Condition: Stable Prescriptions: No Action cholecalciferol (vitamin D3) 50 mcg (2,000 unit) capsule 2,000 unit PO DAILY coenzyme Q10 200 mg capsule PO DAILY ferrous sulfate 325 mg (65 mg iron) tablet,delayed release (DR/EC) PO DAILY calcium carbonate 600 mg calcium (1,500 mg) tablet 1,500 mg PO BID acetaminophen 650 mg tablet extended release 650 mg PO .1-2X/Day isosorbide mononitrate 60 mg tablet extended release 24 hr 30 mg PO BID B-complex with vitamin C Tablet 1 tab PO QDAY Bioflex 020-58-60-40 mg tablet PO multivitamin [Multiple Vitamins] Tablet 1 tab PO QDAY isosorbide mononitrate 30 mg tablet extended release 24 hr 30 mg PO BID hydralazine 50 mg tablet 50 mg PO TID Rx Instructions: Take 50mg with a 25mg tabs- total 75mg TID hydralazine 25 mg tablet 25 mg PO TID Rx Instructions: Take a total of 75mg TID furosemide [Lasix] 20 mg tablet 20 mg PO BID atorvastatin 20 mg tablet 20 mg PO QPM gabapentin 100 mg capsule 200 mg PO QPM oxybutynin chloride 5 mg tablet 5 mg PO BID PRN carvedilol 25 mg tablet 37.5 mg PO BID Qty: 300 3RF Rx Instructions: must administer with a meal/food omeprazole 20 mg capsule,delayed release(DR/EC) 20 mg PO BID Qty: 60 11RF lorazepam [Ativan] 0.5 mg tablet 0.5 mg PO QID PRN Follow Up/Referrals: Erickson Vinson MD [Primary Care Provider] - Stand Alone Forms: MyHealth Info Instructions
[2023-06-25 15:22] LABS: Basophils Absolute Auto 0.02 K/uL (0.00-0.30); Basophils Percent Auto 0.2 % (0.0-3.0); Hematocrit 27.2 % (33.0-51.0); Hemoglobin* 9.1 gm/dL (12.0-16.0); Immature Granulocytes Pct Auto 1.1 %; Lymphocytes Percent Auto 5.9 % (20-44); Mean Corpuscular HGB Conc 34 gm/dL (32-36); Mean Corpuscular Hemoglobin 29 pg (26-34); Mean Corpuscular Volume 87 fL (80-100); Monocytes Percent Auto 3.6 % (0.0-11.0); Neutrophils Percent Auto 89.2 % (42.0-72.0); Platelet Count* 404 K/uL (140-440); Red Blood Count 3.12 m/uL (4.00-5.20); White Blood Count* 9.15 K/uL (4.50-11.00)
[2023-06-25 15:28] LABS: Slide Review Reflex No
[2023-06-25 15:40] LABS: Chloride* 93 mmol/L (96-114); Sodium* 132 mmol/L (135-149)
[2023-06-25 15:41] LABS: Potassium* 3.2 mmol/L (3.6-5.1)
[2023-06-25 15:42] LABS: Albumin* 4.5 g/dL (3.3-5.0); INR 1.18 (0.91-1.10); Partial Thromboplastin Time* 32 Seconds (23-33); Prothrombin Time 15.8 Seconds
[2023-06-25 15:43] LABS: Creatinine* 2.4 mg/dL (0.5-1.5); Est. Creatinine Clearance* 15.47; Estimated Glomerular Filt Rate 20 ml/min
[2023-06-25 15:44] LABS: Anion Gap 17 mEq/L (7-15); Bilirubin Direct* 0.8 mg/dL (0.0-0.5); Bilirubin Total* 0.8 mg/dL (0.1-1.5); Blood Urea Nitrogen* 75 mg/dL (7-30); Calcium* 9.8 mg/dL (8.4-10.6); Carbon Dioxide* 22 mmol/L (20-32); Glucose* 180 mg/dL (60-115)
[2023-06-25 15:45] LABS: Alanine Aminotransferase* 16 U/L (4-35); Alkaline Phosphatase* 119 U/L (40-150); Aspartate Amino Transferase* 26 U/L (12-35); Total Protein* 8.8 g/dL (6.0-8.3)
[2023-06-25 16:14] LABS: PCR FLU A Negative PCR FLU A (Negative); PCR FLU B Negative PCR FLU B (Negative); PCR RSV Negative PCR RSV (Negative); SARS PCR* Negative SARS-CoV-2 (Negative)
[2023-06-25 17:23] LABS: Troponin, Point-of-Care* 0.03 ng/ml (0.01-0.04)
[2023-06-25 17:36] LABS: Gastric Occult Blood* POSITIVE
--- NOTE | 2023-06-25 18:08 | MR_ITS ---
Patient: CYNTHIA HOLBROOK Facility:?[facility] Patient ID:?[id number] Site Patient ID:?[id number] Site :?[id number] Study:?MRI-Head MRA W/O-06/25/2023 8:01:21 PM Ordering Physician:RENEE SMALLS Final Report: Indication: Altered mental status. Technique: MRI Head: Performed without IV contrast. MRA Head: Performed without IV contrast. MRA Neck: Performed without intravenous contrast. Comparison: CT head 06/25/2023. Findings: Portions of the examination is suboptimal due to patient motion. MRI Head: Mild thinning of the corpus callosum. The pituitary gland and clivus appear intact. Mild degenerative change visualized upper cervical spine. There is a 9 mm focus of restricted diffusion within the left periatrial white matter. Associated T2 FLAIR hyperintensity. The ventricles are proportionate to the cerebral sulci. The 4th ventricle appears midline. The basal cisterns appear patent. No abnormal extra-axial fluid collection identified. Moderate parenchymal volume loss. Mild scattered T2 FLAIR hyperintense foci within the subcortical and periventricular white matter, favored to represent chronic ischemic microvascular disease. There is no intracranial mass, abnormal mass-effect or midline shift identified. Thinning of the ocular lenses. MRA Head: Moderate stenosis at the P1 segment of the right JAVA SOFTWARE DEVELOPER. Otherwise, mild scattered intracranial atherosclerotic disease. No proximal large vessel occlusion. No aneurysm or vascular malformation seen. MRA Neck: Mild (less than 50 % stenosis) atherosclerotic disease of the internal carotid arteries by NASCET criteria. The cervical segments of both vertebral arteries are patent as visualized. Impression: MRI Head: 1. 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 2. Moderate parenchymal volume loss with mild chronic ischemic microvascular disease. MRA Head: 1. Moderate stenosis at the P1 segment of the right JAVA SOFTWARE DEVELOPER. 2. Otherwise, mild intracranial atherosclerotic disease, without hemodynamically significant stenosis or occlusion. 3. No aneurysm. MRA Neck: 1. Mild (less than 50 % stenosis) atherosclerotic disease of the internal carotid arteries by NASCET criteria. Dictated by Endy Salmeron MD @ 06/25/2023 8:43:04 PM Signed by:?Endy Salmeron MD @06/25/2023 8:43:04 PM (Electronic Signature)
--- NOTE | 2023-06-25 18:08 | MR_ITS ---
Patient: CYNTHIA HOLBROOK Facility:?[facility] Patient ID:?[id number] Site Patient ID:?[id number]. Site :?[id number] Study:?MRI-Neck Angio W/O-06/25/2023 8:02:50 PM Ordering Physician:RENEE SMALLS Final Report: Indication: Altered mental status. Technique: MRI Head: Performed without IV contrast. MRA Head: Performed without IV contrast. MRA Neck: Performed without intravenous contrast. Comparison: CT head 06/25/2023. Findings: Portions of the examination is suboptimal due to patient motion. MRI Head: Mild thinning of the corpus callosum. The pituitary gland and clivus appear intact. Mild degenerative change visualized upper cervical spine. There is a 9 mm focus of restricted diffusion within the left periatrial white matter. Associated T2 FLAIR hyperintensity. The ventricles are proportionate to the cerebral sulci. The 4th ventricle appears midline. The basal cisterns appear patent. No abnormal extra-axial fluid collection identified. Moderate parenchymal volume loss. Mild scattered T2 FLAIR hyperintense foci within the subcortical and periventricular white matter, favored to represent chronic ischemic microvascular disease. There is no intracranial mass, abnormal mass-effect or midline shift identified. Thinning of the ocular lenses. MRA Head: Moderate stenosis at the P1 segment of the right MATERIAL MANAGER. Otherwise, mild scattered intracranial atherosclerotic disease. No proximal large vessel occlusion. No aneurysm or vascular malformation seen. MRA Neck: Mild (less than 50 % stenosis) atherosclerotic disease of the internal carotid arteries by NASCET criteria. The cervical segments of both vertebral arteries are patent as visualized. Impression: MRI Head: 1. 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 2. Moderate parenchymal volume loss with mild chronic ischemic microvascular disease. MRA Head: 1. Moderate stenosis at the P1 segment of the right MATERIAL MANAGER. 2. Otherwise, mild intracranial atherosclerotic disease, without hemodynamically significant stenosis or occlusion. 3. No aneurysm. MRA Neck: 1. Mild (less than 50 % stenosis) atherosclerotic disease of the internal carotid arteries by NASCET criteria. Dictated by Endy Salmeron MD @ 06/25/2023 8:44:39 PM Signed by:?Endy Salmeron MD @06/25/2023 8:44:39 PM (Electronic Signature)
--- NOTE | 2023-06-25 18:08 | MR_ITS ---
Patient: CYNTHIA HOLBROOK Facility:?[facility]IS Patient ID:?[id number] Site Patient ID:?[id number] Site :?[id number] Study:?MRI-Head W/O-06/25/2023 7:59:49 PM Ordering Physician:RENEE SMALLS Final Report: Indication: Altered mental status. Technique: MRI Head: Performed without IV contrast. MRA Head: Performed without IV contrast. MRA Neck: Performed without intravenous contrast. Comparison: CT head 06/25/2023. Findings: Portions of the examination is suboptimal due to patient motion. MRI Head: Mild thinning of the corpus callosum. The pituitary gland and clivus appear intact. Mild degenerative change visualized upper cervical spine. There is a 9 mm focus of restricted diffusion within the left periatrial white matter. Associated T2 FLAIR hyperintensity. The ventricles are proportionate to the cerebral sulci. The 4th ventricle appears midline. The basal cisterns appear patent. No abnormal extra-axial fluid collection identified. Moderate parenchymal volume loss. Mild scattered T2 FLAIR hyperintense foci within the subcortical and periventricular white matter, favored to represent chronic ischemic microvascular disease. There is no intracranial mass, abnormal mass-effect or midline shift identified. Thinning of the ocular lenses. MRA Head: Moderate stenosis at the P1 segment of the right OPTION TRADER. Otherwise, mild scattered intracranial atherosclerotic disease. No proximal large vessel occlusion. No aneurysm or vascular malformation seen. MRA Neck: Mild (less than 50 % stenosis) atherosclerotic disease of the internal carotid arteries by NASCET criteria. The cervical segments of both vertebral arteries are patent as visualized. Impression: MRI Head: 1. 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 2. Moderate parenchymal volume loss with mild chronic ischemic microvascular disease. MRA Head: 1. Moderate stenosis at the P1 segment of the right OPTION TRADER. 2. Otherwise, mild intracranial atherosclerotic disease, without hemodynamically significant stenosis or occlusion. 3. No aneurysm. MRA Neck: 1. Mild (less than 50 % stenosis) atherosclerotic disease of the internal carotid arteries by NASCET criteria. Dictated by Endy Salmeron MD @ 06/25/2023 8:42:33 PM Signed by:?Endy Salmeron MD @06/25/2023 8:42:33 PM (Electronic Signature)
[2023-06-25] MEDS: PANTOPRAZOLE SODIUM 40 MG INJ IVP (18:10)
[2023-06-25] MEDS: 0.9 % SODIUM CHLORIDE 500 ML 500 ML IV (18:10)
[2023-06-25] MEDS: LORazepam 2 MG/ML inj 0.25 MG IVP (18:54)
--- NOTE | 2023-06-25 19:27 | ED.NURSE ---
Patient to MRI as EMS was delayed for pick up man.
--- NOTE | 2023-06-26 01:03 | ED.NURSE ---
Call from [facility]. Requesting images pushed and radiology reads to be faxed to Dr. Worley ([phone]). Images pushed and reads faxed.
== END 2023-06-25 21:11 | disposition short-term general hospital (02) ==
PROVIDERS: Emergency Provider Family Medicine; PCP Family Medicine
DX: N19 Unspecified kidney failure (principal); K92.2 Gastrointestinal hemorrhage, unspecified; I16.0 Hypertensive urgency
CPT/HCPCS: 36415; 70450; 70544; 70547; 70551; 71045; 80048; 80076; 82962; 83986; 84484; 85025; 85610; 85730; 87040; 87631; 93005; 94761; 96374; 96375; 99284; 99291; 99292; C9113; J2060; J2405; J7030

== ENCOUNTER 2023-06-25 20:00 | Outpatient (CLI) | payer OTHER, SELFPAY | END 2023-06-25 20:01 | disposition home or self-care (01) | LOC: AMB 06-27 11:13 | PROVIDERS: PCP Family Medicine; Visit Provider Emergency Medicine Emergency Medical Services | DX: R41.82 Altered mental status, unspecified (principal) | CPT/HCPCS: A0425; A0426; A0427 ==

== ENCOUNTER 2023-07-19 12:46 | Outpatient (CLI) | payer OTHER, SELFPAY ==
--- OUTSIDE RECORDS SUMMARY | 2023-07-19 12:52 | XMS_ITS | Clinical Summary ---
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 09/30/19 22 Active apixaban (ELIQUIS) 2.5 mg tabletIndications:p revent thromboembolism in chronic atrial fibrillation Take 1 Tablet (2.5 mg) by mouth 2 times daily. 0 11/29/19 22 Active nystatin powder (MYCOSTATIN) powderIndications:c utaneous candidiasis Apply topically to affected area(s) once daily in the evening. Apply to abdominal folds. 01/28/20 22 Active amoxicillin (AMOXIL) 500 mg capsuleIndications: SBE (subacute bacterial endocarditis) prophylaxis candidate Take 2 tabs (1000mg) by mouth, 30-60 min prior to any dental procedure for SBE prophylaxis 2 Capsule 05/02/19 23 Active ondansetron (ZOFRAN ODT) 4 mg disintegrating tabletIndications:n ausea Take 4 mg by mouth every 8 hours if needed. 06/20/19 23 Active metoprolol succinate (TOPROL XL) 25 mg Sustained-Release tabletIndications:h ypertension Take 12.5 mg by mouth once daily in the afternoon. 03/11/20 Active nystatin (MYCOSTATIN) 100,000 unit/gram topical creamIndications:cu taneous candidiasis Apply topically to affected area(s) three times daily. Apply to buttocks wounds topically TID for wound care. Mix 1:1 with triamcinolone cream. Active triamcinolone (ARISTOCORT; KENALOG) 0.1 % cream Apply topically to affected area(s) three times daily. Apply to buttocks wounds topically TID for wound care. Mix 1:1 with nystatin cream. Active bisacodyL (DULCOLAX) 10 mg suppository Insert 10 mg rectally once daily if needed for Constipation. Active nystatin powder (MYCOSTATIN) powderIndications:c utaneous candidiasis Apply 1 Strip topically to affected area(s) each time if needed. Apply to abdominal folds topically as needed. Active folic acid 1 mg tabletIndications:W ound of left lower extremity, subsequent encounter Take 1 Tablet (1 mg) by mouth once daily. 06/12/19 Active Additional Information Patient taking differently:1 mg OralDAILY AFTERNOON, Informant: Alf CHINO, Reported on 06/25/2023 pantoprazole (PROTONIX) 40 mg delayed-release tabletIndications:G astrointestinal hemorrhage, unspecified gastrointestinal hemorrhage type Take 1 Tablet (40 mg) by mouth two times daily before meals. 06/12/19 Active acetic acid 0.25% 0.25 % irrigation Apply topically to affected area(s) every Sunday, and Sunday. 06/14/19 Active acetaminophen (TYLENOL EXTRA STRGTH) 500 mg tablet Take 1,000 mg by mouth three times daily. 06/01/19 24 Active SantyL ointment Apply topically to affected area(s) every Sunday, and Sunday. To left lower leg wound 06/19/19 Active amLODIPine (NORVASC) 2.5 mg tabletIndications:H TN (hypertension) Take 3 Tablets (7.5 mg) by mouth once daily. 07/04/19 Active lidocaine 4 % creamIndications:sk in irritation,pain Apply to left leg wound TID 07/04/19 Active mirtazapine (REMERON) 30 mg tabletIndications:m ravi depressive disorder Take 0.5 Tablets (15 mg) by mouth at bedtime. 07/04/19 24 Active rosuvastatin (CRESTOR) 5 mg tabletIndications:C erebrovascular accident (CVA), unspecified mechanism (HC) Take 0.5 Tablets (2.5 mg) by mouth at bedtime. 07/04/19 24 Active polyethylene glycol (Miralax) 17 g per packet packetIndications:C onstipation, unspecified constipation type Mix 17 g (1 Packet) in liquid then take by mouth once daily if needed for Constipation. 07/04/19 24 Active Senna 8.6 mg tabletIndications:c onstipation Take 2 Tablets (17.2 mg) by mouth 2 times daily if needed for Constipation. 07/04/19 24 Active mirtazapine (REMERON SOLTAB) 15 mg disintegrating tabletIndications:C erebrovascular accident (CVA), unspecified mechanism (HC) Take 1 Tablet (15 mg) by mouth at bedtime. 07/09/19 24 Active buprenorphine 10 mcg/hr (BUTRANS) 10 mcg/hour transdermal patchIndications:Pa in Apply 1 Patch on dry, clean, hairless skin once weekly. 4 Patch 07/13/19 24 Active HYDROmorphone (DILAUDID) 1 mg/mL liquidIndications:P ain Take 0.5 mL (0.5 mg) by mouth every 6 hours if needed for Pain. 15 mL 07/09/19 24 Active acetaminophen (TYLENOL) 325 mg tabletIndications:a rthritic pain Take 1,000 mg by mouth three times daily. Max acetaminophen dose: 4000mg in 24 hrs. Discontinued(*A vailability/For mulary change/Cost of medication) Senna 8.6 mg tabletIndications:c onstipation Take 17.2 mg by mouth two times daily. 05/05/19 23 Discontinued mirtazapine (REMERON) 30 mg tabletIndications:m ravi depressive disorder Take 30 mg by mouth at bedtime. 11/18/19 23 024 Discontinued magnesium oxide (MAG-OX 400) 400 mg tabletIndications:h ypomagnesemia Take 400 mg by mouth two times daily. 06/20/19 23 03/18/2 024 Discontinued(*P atient states no longer taking) polyethylene glycoL (MIRALAX) 17 gram/scoop powderIndications:c onstipation Mix 17 g in liquid then take by mouth. Three times weekly on , 11/29/19 23 024 Discontinued(*I P Discontinued) lidocaine 4 % creamIndications:sk in irritation,pain Apply topically to affected area(s) two times daily. Apply to left leg. 024 Discontinued polyethylene glycol (Miralax) 17 g per packet packet Mix 1 Packet in liquid then take by mouth once daily if needed for Constipation. Discontinued multivitamin, stress formula (STRESSTABS) tabletIndications:M ultiple wounds of skin Take 1 Tablet by mouth once daily for 10 days. 06/12/19 24 024 amLODIPine (NORVASC) 2.5 mg tabletIndications:H TN (hypertension) Take 1 Tablet (2.5 mg) by mouth once daily. 06/12/19 24 024 Discontinued oxyCODONE (ROXICODONE) 5 mg immediate release tabletIndications:M ultiple wounds of skin Take 1 Tablet (5 mg) by mouth every 6 hours if needed for Pain. 10 Tablet 06/12/19 24 Discontinued doxycycline (VIBRAMYCIN) 100 mg capsule Take 100 mg by mouth two times daily. 06/22/19 24 024 Discontinued(*I P Discontinued) benzonatate (TESSALON) 100 mg capsule Take 100 mg by mouth 3 times daily if needed for Cough. 06/21/19 24 024 Discontinued(*I P Discontinued) gabapentin (NEURONTIN) 100 mg capsuleIndications: Leg pain, bilateral Take 1 Capsule (100 mg) by mouth at bedtime. 07/04/19 024 Discontinued(*I P Discontinued) oxyCODONE (ROXICODONE) 5 mg immediate release tabletIndications:M ultiple wounds of skin Take 0.5-1 Tablets (2.5-5 mg) by mouth every 6 hours if needed for Pain. 10 Tablet 07/04/19 24 024 Discontinued(*I P Discontinued) Active Problems Problem Noted Date Diagnosed Date Wound infection 07/09/2023 PAD (peripheral artery disease) 07/09/2023 Chronic leg pain 07/09/2023 End-stage renal disease 06/26/2023 PEG (percutaneous endoscopic gastrostomy) status 06/26/2023 Diarrhea 06/26/2023 CVA (cerebral vascular accident) 06/26/2023 Open wound of left lower extremity 06/26/2023 Coagulopathy 06/04/2023 GIB (gastrointestinal bleeding) 06/04/2023 Hyponatremia 06/04/2023 ACP (advance care planning) 06/04/2023 Leg wound, left 06/04/2023 Nephrosclerosis 06/14/2022 Non-ST elevation (NSTEMI) myocardial infarction 06/14/2022 Methicillin susceptible Staphylococcus aureus in fection 06/06/2022 Stage 4 chronic kidney disease 05/19/2022 Overview: Added automatically from request for surgery [id number] Subacute bacterial endocarditis 11/30/2021 PAF (paroxysmal atrial fibrillation) 11/26/2021 Staphylococcus aureus bacteremia 11/13/2021 ESRD on hemodialysis 11/12/2021 Sepsis 11/12/2021 Acute encephalopathy 11/12/2021 Elevated troponin 11/12/2021 Hyperparathyroidism due to renal insufficiency 1 Obstructive sleep apnea syndrome 04/28/2020 Chronic right heart failure 01/07/2020 Anemia of chronic renal failure 01/07/2020 Hypertensive urgency 12/06/2019 PAD (peripheral artery disease) 12/05/2019 HTN (hypertension) 12/05/2019 Chronic heart failure with p reserved ejection fraction (HFpEF) 12/05/2019 History of colon polyps 11/29/2017 Overview: Colonoscopy 11/2017 polyps, repeat in 5 years Acute midline low back pain without sciatica Resolved Problems Problem Noted Date Diagnosed Date Resolved Date Chronic diastolic heart failure 11/12/2021 01/01/2022 Chest pain 12/05/2019 01/01/2022 DIMAS (acute kidney injury) 12/05/2019 DM2 (diabetes mellitus, type 2) 12/05/2019 12/05/2019 Encounters Date Type Department Care Team Description 06/27/19 12:34 PM CDT Anesthesia Event [facility] [address] [place] [address] Jd Reese DO Meyer, Ava, JEANINE Student 06/27/19 24 11:45 AM CDT - 06/27/19 24 12:45 PM CDT Surgery [facility] [address] [place] [address] Kavin Fournier MD ESOPHAGOGASTRODUODENOSCOPY 06/27/19 24 Travel 06/25/19 24 9:06 PM CDT - 07/09/19 24 1:00 PM CDT Hospital Encounter [facility] [address] [place] [address] Lion Granados MD Weise, Lalita Cisneros [place] [facility] [place] [facility] Of Vikram Dias MD Kohlmeyer, Lore Trent MD Leg pain, bilateral (Primary Dx); HTN (hypertension); Multiple wounds of skin; Cerebrovascular accident (CVA), unspecified mechanism (HC); Constipation, unspecified constipation type; Open wound of left lower extremity, subsequent encounter; Difficulty sleeping; Pain Discharge Disposition: Nursing Home Facility 06/05/19 24 10:48 AM MATERIALS DEVELOPMENT ENGINEER Anesthesia Event [address] [address] Cesar Reddy MD McNeely, Melissa H, CRNA 06/05/19 24 10:25 AM MATERIALS DEVELOPMENT ENGINEER - 06/05/19 24 11:08 AM MATERIALS DEVELOPMENT ENGINEER Surgery [address] [address] Michael Ricks MD ESOPHAGOGASTRODUODENOSCOPY 06/04/19 24 9:10 AM MATERIALS DEVELOPMENT ENGINEER - 06/12/19 24 11:30 AM MATERIALS DEVELOPMENT ENGINEER Hospital Encounter [address] [address] Lynne Hurt MD [facility], Hospitalist Mallory Olvera MD Sahni, Nishant, MBBS Hasan, Syed Abutalib, MBBS Chaudhry, Saadia Zafar, MD Gastrointestinal hemorrhage, unspecified gastrointestinal hemorrhage type (Primary Dx); PAF (paroxysmal atrial fibrillation) (HC); Multiple wounds of skin; Wound of left lower extremity, subsequent encounter; HTN (hypertension) Discharge Disposition: Nursing Home Facility 06/04/19 Travel 05/07/19 Lab Requisition [facility] [phone] Erickson Vinson MD 05/01/19 11:30 AM MATERIALS DEVELOPMENT ENGINEER Office Visit [facility] [address] [place] [id number] Nik Shaffer PA Follow Up (Injections) 05/01/19 Telephone [facility] [address] [place] [address] Nik Shaffer PA 05/01/19 Travel from Last 3 Months Family History Medical History Relation Name Comments Cancer Brother Diabetes Brother Hyperlipidemia Brother Osteoporosis Father Cancer Mother Hypertension Mother Relation Name Status Comments Brother Father Mother Social History Tobacco Use Types Packs/Day Years Used Date Smoking Tobacco: Never Smokeless Tobacco: Never Tobacco Cessation:Counseling Given: Yes Alcohol Use Standard Drinks/Week Comments Not Currently 0 (1 standard drink = 0.6 oz pur e alcohol) occasional Social Connections Answer Date Recorded Frequency of Communication with Friends and Fami ly 0 06/04/2023 Financial Resource Strain Answer Date R ecorded Difficulty of Paying Living Expenses 3 06/04/2023 Difficulty of Paying Living Expenses Not on file 06/04/2023 Food Insecurity Answer Date Recorded Worried About Running Out of Food in the Last Ye ar 1 06/04/2023 Transportation Needs Answer Date Record ed Lack of Transportation (Medical) 1 06/04/2023 Housing Stability Answer Date Recorded Unable to Pay for Housing in the Last Year 1 06/04/2023 Sex and Gender Information Value Date Recorded Sex Assigned at Not on file Gender Identity Not on file Sexual Orientation Not on file Obstetrics History Last Filed Vital Signs Vital Sign Reading Time Taken Comments Blood Pressure 156/74 07/09/2023 11:25 AM CDT Pulse 95 07/09/2023 11:25 AM CDT Temperature 36.8 ??C (98.2 ??F) 07/09/2023 11:15 AM C DT Respiratory Rate 16 07/09/2023 11:25 AM CDT Oxygen Saturation 100% 07/09/2023 7:37 AM CDT Inhaled Oxygen Concentration - - Weight 67.3 kg (148 lb 5.9 oz) 07/09/2023 11:15 AM CDT Height 154.9 cm (5' 1) 06/27/2023 11:31 AM CDT Body Mass Index 28.03 06/27/2023 11:31 AM CDT Plan of Treatment Health Maintenance Due Date Last Done Comments Pneumococcal series for age 65+ (1 of 2 - PCV) 06/07/1949 Tdap 06/07/1954 Depression screening for age 12+ 1955 Tetanus booster 1963 Zoster (shingles) series for age 50+ (1 of 2) 06/07/1993 Medicare Wellness for age 65+ 06/07/2008 Influenza for age 65+ 12/09/2023 BMI (ht and wt on same day) for age 18+ 05/01/2024 05/01/2023, 05/09/2022, 05/02/2022, Additional history exists DEXA/DXA scan for age 65+ Completed 12/02/2018 COVID-19 vaccine series Completed 01/31/20, 01/16/2022, 01/20/2021 Procedures Procedure Name Priority Date/Time Associated Diagnosis Comments GLUCOSE METER Timed 07/09/2023 6:23 AM CDT GLUCOSE METER Timed 07/09/2023 1:33 AM CDT GLUCOSE METER Timed 07/08/2023 6:23 PM CDT GLUCOSE METER Timed 07/08/2023 12:57 PM CDT POTASSIUM Early AM 07/08/2023 12:15 PM CDT WHITE BLOOD COUNT Early AM 07/08/2023 12:14 PM CDT GLUCOSE METER Timed 07/08/2023 6:15 AM CDT GLUCOSE METER Timed 07/08/2023 1:37 AM CDT GLUCOSE METER Timed 07/07/2023 6:04 PM CDT GLUCOSE METER Timed 07/07/2023 12:16 PM CDT EXTRA TUBE GOLD/SST Today 07/07/2023 12:12 PM CDT WHITE BLOOD COUNT Early AM 07/07/2023 12:12 PM CDT RENAL FUNCTION PANEL Early AM 07/07/2023 12:12 PM CDT GLUCOSE METER Timed 07/07/2023 8:31 AM CDT GLUCOSE METER Timed 07/06/2023 5:23 PM CDT WHITE BLOOD COUNT Early AM 07/06/2023 3:52 PM CDT RENAL FUNCTION PANEL Early AM 07/06/2023 3:52 PM CDT HEMOGLOBIN Early AM 07/06/2023 3:52 PM CDT GLUCOSE METER Timed 07/06/2023 1:19 PM CDT GLUCOSE METER Timed 07/06/2023 6:53 AM CDT GLUCOSE METER Timed 07/06/2023 12:47 AM CDT GLUCOSE METER Timed 07/05/2023 6:[address] HEAD BRAIN WO JULY 07/05/2023 2:51 PM CDT WHITE BLOOD COUNT Today 07/05/2023 1:30 PM CDT AMMONIA Today 07/05/2023 1:30 PM CDT BLOOD GAS,VENOUS Today 07/05/2023 1:30 PM CDT RENAL FUNCTION PANEL Today 07/05/2023 1:30 PM CDT VITAMIN B12 Today 07/05/2023 1:30 PM CDT T3,TOTAL Today 07/05/2023 1:30 PM CDT T4,FREE Today 07/05/2023 1:30 PM CDT CORTISOL TOTAL Today 07/05/2023 1:30 PM CDT GLUCOSE METER Timed 07/05/2023 12:53 PM CDT HEMOGLOBIN Early AM 07/04/2023 1:13 PM CDT POTASSIUM Early AM 07/04/2023 1:12 PM CDT LIPID PANEL Early AM 07/04/2023 1:12 PM CDT GLUCOSE METER Timed 07/04/2023 12:32 PM CDT GLUCOSE METER Timed 07/04/2023 6:12 AM CDT GLUCOSE METER Timed 07/04/2023 12:08 AM CDT GLUCOSE METER Timed 07/03/2023 5:13 PM CDT US ARTERIAL LOWER EXTREMITY W SANTIAGO BILATERAL JULY 07/03/2023 2:40 PM CDT GLUCOSE METER Timed 07/03/2023 12:23 PM CDT HBSAG (HBS) JULY 07/03/2023 11:18 AM CDT HEMOGLOBIN Early AM 07/03/2023 11:18 AM CDT RENAL FUNCTION PANEL Early AM 07/03/2023 11:18 AM CDT GLUCOSE METER Timed 07/03/2023 6:24 AM CDT GLUCOSE METER Timed 07/03/2023 12:26 AM CDT GLUCOSE METER Timed 07/02/2023 6:08 PM CDT GLUCOSE METER Timed 07/02/2023 12:27 PM CDT HEMOGLOBIN Early AM 07/02/2023 11:31 AM CDT GLUCOSE METER Timed 07/02/2023 3:39 AM CDT GLUCOSE METER Timed 07/01/2023 10:29 PM CDT GLUCOSE METER Timed 07/01/2023 6:26 PM CDT SODIUM Today 07/01/2023 2:52 PM CDT POTASSIUM Early AM 07/01/2023 2:52 PM CDT HEMOGLOBIN Early AM 07/01/2023 2:52 PM CDT GLUCOSE METER Timed 07/01/2023 11:35 AM CDT GLUCOSE METER Timed 06/30/2023 9:24 PM CDT GLUCOSE METER Timed 06/30/2023 4:26 PM CDT GLUCOSE METER Timed 06/30/2023 12:14 PM CDT GLUCOSE METER Timed 06/30/2023 3:57 AM CDT GLUCOSE METER Timed 06/29/2023 9:55 PM CDT GLUCOSE METER Timed 06/29/2023 3:47 PM CDT GLUCOSE METER Timed 06/29/2023 12:56 PM CDT SOLUBLE TRANSFERRIN FINISHING TRIMMER JULY 2023 4:19 AM CDT FERRITIN JULY 06/29/2023 4:19 AM CDT HEMOGLOBIN Early AM 06/29/2023 4:19 AM CDT RENAL FUNCTION PANEL Early AM 06/29/2023 4:19 AM CDT GLUCOSE METER Timed 06/29/2023 4:00 AM CDT SCAN-CARDIAC STRIP 06/29/2023 2:29 AM CDT GLUCOSE METER Timed 06/28/2023 11:01 PM CDT GLUCOSE METER Timed 06/28/2023 7:11 PM CDT CLOSTRIDIOIDES DIFFICILE TOX IN PCR Today 06/28/2023 4:18 PM CDT BASIC METABOLIC PANEL Early AM 06/28/2023 2:52 PM CDT HEMOGLOBIN Early AM 06/28/2023 2:52 PM CDT ECHO TTE COMPLETE WO CONTRAST Routine 2:32 PM CDT GLUCOSE METER Timed 06/28/2023 1:14 PM CDT GLUCOSE METER Timed 06/28/2023 3:51 AM CDT SCAN-CARDIAC STRIP 06/28/2023 1:02 AM CDT GLUCOSE METER Timed 06/27/2023 11:13 PM CDT GLUCOSE METER Timed 06/27/2023 5:56 PM CDT GLUCOSE METER Timed 06/27/2023 2:04 PM CDT ESOPHAGOGASTRODUODENOSCOPY 06/26 12:15 PM CDT melena ENDOSCOPY 06/27/2023 11:26 AM CDT GLUCOSE METER Timed 06/27/2023 9:33 AM CDT GLUCOSE METER Timed 06/27/2023 6:38 AM CDT BASIC METABOLIC PANEL Early AM 06/27/2023 6:06 AM CDT CBC W PLT NO DIFF Early AM 06/27/2023 6:06 AM CDT GLUCOSE METER Timed 06/27/2023 2:08 AM CDT SCAN-CARDIAC STRIP 06/27/2023 1:24 AM CDT GLUCOSE METER Timed 06/26/2023 11:13 PM CDT HEMOGLOBIN Today 06/26/2023 11:08 PM CDT SCAN-CARDIAC STRIP 06/26/2023 8:45 PM CDT GLUCOSE METER Timed 06/26/2023 4:21 PM CDT AEROBIC BACTERIAL CULTURE, STAIN Today 06/26/2023 1:24 PM CDT COVID/FLU/RSV PANEL Today 06/26/2023 1:24 PM CDT EXTRA TUBE LIGHT GREEN Today 1:05 PM CDT T4,FREE JULY 06/26/2023 12:53 PM CDT HEMOGLOBIN Today 06/26/2023 12:53 PM CDT BLOOD CULTURE Today 06/26/2023 12:53 PM CDT VANCOMYCIN Timed 06/26/2023 12:53 PM CDT BLOOD CULTURE Today 06/26/2023 12:29 PM CDT MR HEAD BRAIN WO JULY 06/26/2023 11:20 AM CDT GLUCOSE METER Timed 06/26/2023 10:27 AM CDT BASIC METABOLIC PANEL Early AM 06/26/2023 7:36 AM CDT CBC W PLT NO DIFF STAT 06/26/2023 7:36 AM CDT GLUCOSE METER Timed 06/26/2023 7:00 AM CDT HEMOGLOBIN STAT 06/26/2023 2:50 AM CDT EKG 12 LEAD STAT 06/26/2023 2:40 AM CDT SCAN-CARDIAC STRIP 06/26/2023 12:01 AM CDT LIPASE Today 06/26/2023 12:01 AM CDT TSH Today 06/26/2023 12:01 AM CDT CORTISOL TOTAL Timed 06/26/2023 12:01 AM CDT CBC WITH AUTO DIFFERENTIAL STAT 06/25 12:01 AM CDT LACTATE VENOUS Today 06/26/2023 12:01 AM CDT BLOOD GAS,VENOUS JULY 06/26/2023 12:01 AM CDT PROCALCITONIN Today 06/26/2023 12:01 AM CDT PROTIME-INR STAT 06/26/2023 12:01 AM CDT HEPATIC FUNCTION PANEL STAT 12:01 AM CDT CBC WITH AUTO DIFFERENTIAL STAT 06/25 12:01 AM CDT BASIC METABOLIC PANEL STAT 06/26/2023 12:01 AM CDT MRSA/SA PCR Today 06/25/2023 11:21 PM CDT SCAN-CARDIAC STRIP 06/25/2023 9:55 PM CDT XR CHEST 1 VIEW PORTABLE STAT 024 9:47 PM CDT GLUCOSE METER Timed 06/25/2023 9:19 PM CDT SCAN-CARDIAC STRIP 06/25/2023 12:00 AM CDT CO2,TOTAL Early AM 06/12/2023 7:22 AM MATERIALS DEVELOPMENT ENGINEER WHITE BLOOD COUNT Early AM 06/12/2023 7:22 AM MATERIALS DEVELOPMENT ENGINEER HEMOGLOBIN Early AM 06/12/2023 7:22 AM MATERIALS DEVELOPMENT ENGINEER CREATININE Early AM 06/12/2023 7:22 AM MATERIALS DEVELOPMENT ENGINEER POTASSIUM Early AM 06/12/2023 7:22 AM MATERIALS DEVELOPMENT ENGINEER SODIUM Early AM 06/12/2023 7:22 AM MATERIALS DEVELOPMENT ENGINEER SCAN-CARDIAC STRIP 06/11/2023 10:34 AM MATERIALS DEVELOPMENT ENGINEER CBC W PLT NO DIFF Today 06/11/2023 8:09 AM MATERIALS DEVELOPMENT ENGINEER SCAN-CARDIAC STRIP 06/11/2023 5:34 AM MATERIALS DEVELOPMENT ENGINEER SCAN-CARDIAC STRIP 06/10/2023 10:21 PM MATERIALS DEVELOPMENT ENGINEER SCAN-CARDIAC STRIP 06/10/2023 7:37 AM MATERIALS DEVELOPMENT ENGINEER CBC WITH AUTO DIFFERENTIAL Early AM 06/09 4:44 AM MATERIALS DEVELOPMENT ENGINEER BASIC METABOLIC PANEL Early AM 06/10/2023 4:44 AM MATERIALS DEVELOPMENT ENGINEER CBC WITH AUTO DIFFERENTIAL Early AM 06/09 4:44 AM MATERIALS DEVELOPMENT ENGINEER SCAN-CARDIAC STRIP 06/10/2023 4:24 AM MATERIALS DEVELOPMENT ENGINEER SCAN-CARDIAC STRIP 06/09/2023 7:45 AM MATERIALS DEVELOPMENT ENGINEER SCAN-CARDIAC STRIP 2023 3:18 PM MATERIALS DEVELOPMENT ENGINEER HEMOGLOBIN Timed 2023 12:11 PM MATERIALS DEVELOPMENT ENGINEER SCAN-CARDIAC STRIP 2023 7:40 AM MATERIALS DEVELOPMENT ENGINEER SCAN-CARDIAC STRIP 2023 12:26 AM MATERIALS DEVELOPMENT ENGINEER HEMOGLOBIN Timed 2023 12:12 AM MATERIALS DEVELOPMENT ENGINEER SCAN-CARDIAC STRIP 06/07/2023 4:05 PM MATERIALS DEVELOPMENT ENGINEER HEMOGLOBIN Timed 06/07/2023 12:06 PM MATERIALS DEVELOPMENT ENGINEER SCAN-CARDIAC STRIP 06/07/2023 10:43 AM MATERIALS DEVELOPMENT ENGINEER BASIC METABOLIC PANEL Early AM 06/07/2023 5:02 AM MATERIALS DEVELOPMENT ENGINEER HEMOGLOBIN Timed 06/07/2023 12:47 AM MATERIALS DEVELOPMENT ENGINEER SCAN-CARDIAC STRIP 06/06/2023 7:57 PM MATERIALS DEVELOPMENT ENGINEER SCAN-CARDIAC STRIP 06/06/2023 5:10 PM MATERIALS DEVELOPMENT ENGINEER POTASSIUM Early AM 06/06/2023 8:45 AM MATERIALS DEVELOPMENT ENGINEER HEMOGLOBIN Timed 06/06/2023 8:45 AM MATERIALS DEVELOPMENT ENGINEER SCAN-CARDIAC STRIP 06/06/2023 7:41 AM MATERIALS DEVELOPMENT ENGINEER SCAN-CARDIAC STRIP 06/06/2023 4:28 AM MATERIALS DEVELOPMENT ENGINEER HEMOGLOBIN Timed 06/05/2023 9:18 PM MATERIALS DEVELOPMENT ENGINEER HEMOGLOBIN Timed 06/05/2023 4:14 PM MATERIALS DEVELOPMENT ENGINEER ESOPHAGOGASTRODUODENOSCOPY W ITH HEMOSTASIS 06/05/2023 10:43 AM MATERIALS DEVELOPMENT ENGINEER Stephani kenzie tear ESOPHAGOGASTRODUODENOSCOPY 06/05 10:43 AM MATERIALS DEVELOPMENT ENGINEER Stephani kenzie tear TRANSFUSE RBC (NURSE COMMUNICATION ORDER) STAT 06/05/2023 10:40 AM MATERIALS DEVELOPMENT ENGINEER RBC W/O TYPE & SCREEN STAT 06/05/2023 10:28 AM MATERIALS DEVELOPMENT ENGINEER RED BLOOD CELLS EA UNIT STAT 06/05/19 10:28 AM MATERIALS DEVELOPMENT ENGINEER ENDOSCOPY 06/05/2023 10:24 AM MATERIALS DEVELOPMENT ENGINEER SCAN-CARDIAC STRIP 06/05/2023 7:49 AM MATERIALS DEVELOPMENT ENGINEER BASIC METABOLIC PANEL Early AM 06/05/2023 7:06 AM MATERIALS DEVELOPMENT ENGINEER CBC W PLT NO DIFF Early AM 06/05/2023 7:06 AM MATERIALS DEVELOPMENT ENGINEER HEMOGLOBIN Timed 06/05/2023 7:06 AM MATERIALS DEVELOPMENT ENGINEER TRANSFUSE RBC (NURSE COMMUNICATION ORDER) STAT 06/05/2023 2:37 AM MATERIALS DEVELOPMENT ENGINEER RBC W/O TYPE & SCREEN STAT 06/05/2023 1:36 AM MATERIALS DEVELOPMENT ENGINEER RED BLOOD CELLS EA UNIT STAT 06/05/19 24 1:36 AM MATERIALS DEVELOPMENT ENGINEER HEMOGLOBIN Timed 06/05/2023 12:15 AM MATERIALS DEVELOPMENT ENGINEER XR CHEST 1 VIEW PORTABLE STAT 024 11:37 PM MATERIALS DEVELOPMENT ENGINEER SCAN-CARDIAC STRIP 06/04/2023 5:13 PM MATERIALS DEVELOPMENT ENGINEER HEMOGLOBIN Timed 06/04/2023 4:58 PM MATERIALS DEVELOPMENT ENGINEER CT ABDOMEN PELVIS W STAT 06/04/2023 2:14 PM MATERIALS DEVELOPMENT ENGINEER HBSAG (HBS) JULY 06/04/2023 11:23 AM MATERIALS DEVELOPMENT ENGINEER POTASSIUM STAT 06/04/2023 11:23 AM MATERIALS DEVELOPMENT ENGINEER EKG 12 LEAD STAT 06/04/2023 10:45 AM MATERIALS DEVELOPMENT ENGINEER TYPE & SCREEN STAT 06/04/2023 10:43 AM MATERIALS DEVELOPMENT ENGINEER BLOOD CULTURE STAT 06/04/2023 10:43 AM MATERIALS DEVELOPMENT ENGINEER BLOOD CULTURE STAT 06/04/2023 10:43 AM MATERIALS DEVELOPMENT ENGINEER LACTATE VENOUS STAT 06/04/2023 10:43 AM MATERIALS DEVELOPMENT ENGINEER EXTRA TUBE LAVENDER Today 06/04/2023 10:15 AM MATERIALS DEVELOPMENT ENGINEER BASIC METABOLIC PANEL STAT 06/04/2023 10:12 AM MATERIALS DEVELOPMENT ENGINEER PROTIME-INR STAT 06/04/2023 10:12 AM MATERIALS DEVELOPMENT ENGINEER CBC W PLT NO DIFF STAT 06/04/2023 10:12 AM MATERIALS DEVELOPMENT ENGINEER SCAN-BONE DENSITOMETRY DEXA 11/08 12:00 AM CDT from Last 3 Months or Most Recently Relevant to Health Maintenance Results * (ABNORMAL) GLUCOSE METER (07/09/2023 6:23 AM CDT) Only the most recent of51 resultswithin the time period is included. GLUCOSE METER 143(H) 65 - 100 mg/dL 07/09/2023 6:24 AM CDT [facility] Blood BLOOD SPECIMEN / Unknown 07/09/2023 6:23 AM CDT 07/09/2023 6:24 AM CDT Vikram Dias MD CHEMISTRY Performing Organization Address City/[facility]/ZIP Co de Phone Number [facility] [address] [place] [address], * Potassium AM (07/08/2023 12:15 PM CDT) Only the most recent of6 resultswithin the time period is included. POTASSIUM 4.2 3.5 - 5.1 mmol/L 07/08/2023 1:32 PM CDT [facility] Blood BLOOD SPECIMEN / Unknown Venipuncture / Unknown 07/08/2023 12:15 PM CDT 07/08/2023 12:23 PM CDT Lore Noble MD CHEMISTRY Performing Organization Address City/[facility]/ZIP Co de Phone Number [facility] [address] [place] [address], * WBC AM (07/08/2023 12:14 PM CDT) Only the most recent of5 resultswithin the time period is included. WHITE BLOOD COUNT 6.5 4.5 - 11.0 thou/cu mm 07/08/2023 12:47 PM CDT [facility] NRBC 0.0 % 07/08/2023 12:47 PM CDT [facility] ABS NRBC 0.0 thou /cu mm 07/08/2023 12:47 PM CDT [facility] Blood BLOOD SPECIMEN / Unknown Venipuncture / Unknown 07/08/2023 12:14 PM CDT 07/08/2023 12:23 PM CDT Lore Noble MD HEMATOLOGY Performing Organization Address [facility]/ZIP Co de Phone Number [facility] [address] [place] [phone], [place] * EXTRA TUBE GOLD/SST (07/07/2023 12:12 PM CDT) Blood BLOOD SPECIMEN / Unknown Non-Lab Venipuncture / Unknown 07/07/2023 12:12 PM CDT 07/07/2023 12:18 PM CDT Lore Noble MD LABORATORY Performing Organization Address [facility]/ZIP Co de Phone Number [facility] [address] [place] [id number], [place] * (ABNORMAL) RENAL FUNCTION PANEL (07/07/2023 12:12 PM CDT) Only the most recent of5 resultswithin the time period is included. SODIUM 135(L) 136 - 145 mmol/L 07/07/2023 12:45 PM CDT [facility] POTASSIUM 4.2 3.5 - 5.1 mmol/L 07/07/2023 12:45 PM CDT [facility] CHLORIDE 96(L) 98 - 107 mmol/L 07/07/2023 12:45 PM CDT [facility] CO2,TOTAL 25 22 - 29 mmol/L 07/07/2023 12:45 PM CDT [facility] ANION GAP 14 5 - 18 07/07/2023 12:45 PM CDT [facility] GLUCOSE 104(H) 70 - 99 mg/dL 07/07/2023 12:45 PM CDT [facility] CALCIUM 9.7 8.8 - 10.2 mg/dL 07/07/2023 12:45 PM CDT [facility] BUN 51(H) 8 - 23 mg/dL 07/07/2023 12:45 PM CDT [facility] CREATININE 2.63(H) 0.50 - 0.90 mg/dL 07/07/2023 12:45 PM CDT [facility] BUN/CREAT RATIO 19 10 - 20 12:45 PM CDT [facility] eGFR 18(L) >90 mL/min/1.7 3m2 07/07/2023 12:45 PM CDT [facility] Comment:As of 2021, eG FR is calculated by the CKD-EPI creatinine equation without race adjustment. ??eGFR can be influenced by muscle mass, exercise, and diet. ??The reported eGFR is an estimation only and is only applicable if the renal function is stable. PHOSPHORUS 3.2 2.5 - 4.5 mg/dL 07/07/2023 12:45 PM CDT [facility] ALBUMIN 3.6(L) 4.0 - 4.9 g/dL 07/07/2023 12:45 PM CDT [facility] Blood BLOOD SPECIMEN / Unknown Venipuncture / Unknown 07/07/2023 12:12 PM CDT 07/07/2023 12:17 PM CDT Lore Noble MD CHEMISTRY [facility] [address] [place] [address], * (ABNORMAL) HEMOGLOBIN (07/06/2023 3:52 PM CDT) Only the most recent of21 resultswithin the time period is included. HEMOGLOBIN 8.6(L) 12.0 - 16.0 g/dL 07/06/2023 4:16 PM CDT [facility] MCV 94 80 - 100 fL 07/06/2023 4:16 PM CDT [facility] Blood BLOOD SPECIMEN / Unknown Butterfly / Unknown 07/06/2023 3:52 PM CDT 07/06/2023 3:58 PM CDT Harjit Ewdards MD HEMATOLOGY [facility] [address] [place] [address], * CT head without contrast (07/05/2023 2:51 PM CDT) Anatomical Region Laterality Modality HEAD, BRAIN Computed Tomogra phy 07/05/2023 3:31 PM CDT Narrative 07/05/2023 3:31 PM CDT For Patients: ??As a result of the Century Cures Act, medical imaging exams and procedure reports are released immediately into your electronic medical record. ??You may view this report before your referring provider. ??If you have questions, please contact your health care provider. Indication: Mental status change. Technique: Noncontrast CT of the with multiplanar reconstruction utilizing bone and soft tissue algorithms. Comparison: CT head dated 12/17/2021 and MR brain dated 06/26/2023. Findings: No acute intracranial hemorrhage. The quintero white matter interface is preserved. Faint hypodensity in the left periatrial region corresponds to known recent prior infarct. Similar mild diffuse parenchymal volume loss. No ventricular obstruction. No suspicious calvarial lesion. Evidence of prior cataract surgery. The imaged paranasal sinuses and mastoid air cells are clear. Impression: 1. No acute intracranial hemorrhage. 2. Faint hypodensity in the left periatrial lesion corresponding to known recent prior infarct. 3. Similar mild diffuse parenchymal volume loss and chronic small-vessel ischemic changes. Please note that all CT scans at this facility use dose modulation, iterative reconstruction, and/or weight-based dosing when appropriate to reduce radiation dose to as low as reasonably achievable. Dictated by Gelacio Knight MD @ 07/05/2023 3:31:53 PM (Electronically Signed) Procedure Note Renny Knight MD - 07/05/2023 For Patients: As a result of the Cures Act, medical imagingexams and procedure reports are released immediately into your electronicmedical record. You may view this report before your referring provider.If you have questions, please contact your health care provider. Indication: Mental status change. Technique: Noncontrast CT of the with multiplanar reconstruction utilizing bone andsoft tissue algorithms. Comparison: CT head dated 12/17/2021 and MR brain dated 06/26/2023. Findings: No acute intracranial hemorrhage. The quintero white matter interface ispreserved. Faint hypodensity in the left periatrial region corresponds toknown recent prior infarct. Similar mild diffuse parenchymal volume loss.No ventricular obstruction. No suspicious calvarial lesion. Evidence ofprior cataract surgery. The imaged paranasal sinuses and mastoid air cellsare clear. Impression: 1. No acute intracranial hemorrhage. 2. Faint hypodensity in the left periatrial lesion corresponding to knownrecent prior infarct. 3. Similar mild diffuse parenchymal volume loss and chronic small-vesselischemic changes. Please note that all CT scans at this facility use dose modulation,iterative reconstruction, and/or weight-based dosing when appropriate toreduce radiation dose to as low as reasonably achievable. Dictated by Gelacio Knight MD @ 07/05/2023 3:31:53 PM (Electronically Signed) Lore Noble MD CT * Cortisol AM (07/05/2023 1:30 PM CDT) Only the most recent of2 resultswithin the time period is included. CORTISOL,TOTAL 8.6 ug/dL 07/05/2023 2:43 PM CDT [facility] Blood BLOOD SPECIMEN / Unknown Butterfly / Unknown 07/05/2023 1:30 PM CDT 07/05/2023 1:42 PM CDT Narrative [facility] - 07/05/2023 2:43 PM CDT Cortisol ?Morning Hours ?6:00 ??AM - 10:00 AM ?(4.8-19.5 ug/dL) Cortisol ?Afternoon Hours ??4:00 ??PM - ??8:00 PM ?(2.5-11.9 ug/dL) ? Biotin supplements may cause clinically significant interference for this test assay. ??If interference is suspected, it is strongly recommended that biotin is discontinued for at least one week prior to retesting. Lore Noble MD CHEMISTRY [facility] [address] [place] [address], * (ABNORMAL) BLOOD GAS,VENOUS (07/05/2023 1:30 PM CDT) Only the most recent of2 resultswithin the time period is included. PH, VENOUS 7.38 7.32 - 7.43 07/05/2023 1:47 PM CDT [facility] PCO2, VENOUS 50 41 - 51 mmHg 07/05/2023 1:47 PM CDT [facility] PO2, VENOUS 22(L) 35 - 40 mmHg 07/05/2023 1:47 PM CDT [facility] HCO3,VENOUS 30(H) 22 - 29 mmol/L 07/05/2023 1:47 PM CDT [facility] BASE EXCESS, VENOUS, POCT 3.4(H) -2.0 - 3.0 07/05/2023 1:47 PM CDT [facility] O2 SATURATION, VENOUS 48(L) 70 - 75 % 07/05/2023 1:47 PM CDT [facility] PATIENT TEMPERATURE 37.0 Degrees C 07/05/2023 1:47 PM CDT [facility] Blood BLOOD SPECIMEN / Unknown Butterfly / Unknown 07/05/2023 1:30 PM CDT 07/05/2023 1:42 PM CDT Lore Noble MD CHEMISTRY Performing Organization Address [facility]/ZIP Co de Phone Number [facility] [address] [address], [place] * (ABNORMAL) T3,TOTAL (07/05/2023 1:30 PM CDT) T3,TOTAL 63(L) 85 - 202 ng/dL 07/05/2023 3:16 PM CDT [facility] Blood BLOOD SPECIMEN / Unknown Butterfly / Unknown 07/05/2023 1:30 PM CDT 07/05/2023 1:42 PM CDT Lore Noble MD CHEMISTRY Performing Organization Address [facility] Co de Phone Number [facility] [address] [phone], [place] * T4, free AM (07/05/2023 1:30 PM CDT) Only the most recent of2 resultswithin the time period is included. T4,FREE 1.28 0.93 - 1.70 ng/dL 07/05/2023 2:43 PM CDT [facility] Blood BLOOD SPECIMEN / Unknown Butterfly / Unknown 07/05/2023 1:30 PM CDT 07/05/2023 1:42 PM CDT Lore Noble MD CHEMISTRY Performing Organization Address [facility] Co de Phone Number [facility] [address] [address], [place] * (ABNORMAL) Vitamin B12 level AM (07/05/2023 1:30 PM CDT) VITAMIN B12 1,627(H) 232 - 1,245 pg/mL 07/05/2023 2:44 PM CDT [facility] Blood BLOOD SPECIMEN / Unknown Butterfly / Unknown 07/05/2023 1:30 PM CDT 07/05/2023 1:42 PM CDT Narrative [facility] - 07/05/2023 2:44 PM CDT Biotin supplements may cause clinically significant interference for this test assay. ??If interference is suspected, it is strongly recommended that biotin is discontinued for at least one week prior to retesting. Lore Noble MD CHEMISTRY Performing Organization Address [facility] Co de Phone Number [facility] [address] [address], * (ABNORMAL) Ammonia TODAY (07/05/2023 1:30 PM CDT) AMMONIA 15(L) 16 - 60 umol/L 07/05/2023 2:46 PM CDT [facility] Blood BLOOD SPECIMEN / Unknown Butterfly / Unknown 07/05/2023 1:30 PM CDT 07/05/2023 1:42 PM CDT [facility] - 07/05/2023 2:46 PM CDT 1. ??Sulfasalazine and its metabolite Sulfapyridine at therapeutic concentrations may lead to falsely low results. 2. ??Temozolomide and its metabolite MTIC may lead to falsely elevated results, and its metabolite AIC may lead to falsely low results. Lore Noble MD CHEMISTRY Performing Organization Address [facility] de Phone Number [facility] [address] [address], * Lipid Panel AM (07/04/2023 1:12 PM CDT) CHOLESTEROL,TOTAL 187 100 - 199 mg/dL 07/04/2023 1:50 PM CDT [facility] Comment: Cholesterol, Total Reference Ranges Desirable <200 mg/dL Borderline 200-239 mg/dL High >=240 mg/dL TRIGLYCERIDES 65 <150 mg/dL 07/04/2023 1:50 PM CDT [facility] HDL CHOLESTEROL 57 >40 mg/dL 1:50 PM CDT [facility] NON-HDL CHOLESTEROL 130 <145 mg/dl 07/04/2023 1:50 PM CDT [facility] CHOL/HDL RATIO 3.28 <4.50 07/04/2023 1:50 PM CDT [facility] LDL CHOLESTEROL 117 <=130 mg/dL 07/04/2023 1:50 PM CDT [facility] VLDL CHOLESTEROL 13 <=30 mg/dL 07/04/2023 1:50 PM CDT [facility] PROVIDER ORDERED STATUS RANDOM 07/04/2023 1:50 PM CDT [facility] Blood BLOOD SPECIMEN / Unknown Butterfly / Unknown 07/04/2023 1:12 PM CDT 07/04/2023 1:21 PM CDT Lore Noble MD CHEMISTRY [facility] [address] [place] [phone], [place] * [place] ARTERIAL LOWER EXTREMITY W SANTIAGO BILATERAL (07/03/2023 2:40 PM CDT) Anatomical Region Laterality Modality LEGS Ultrasound Impressions 07/04/2023 10:04 AM CDT ?? Monophasic waveforms throughout bilateral lower extremities (although arguably the common femoral arteries demonstrate some phasicity). Elevated velocities in the right common femoral artery could indicate poststenotic turbulence. Either way, the monophasic waveforms suggest possible inflow stenosis or occlusion on both sides. Yossi Earl M.D. Interventional Radiology/Diagnostic Radiology (IR/DR) [employer] [facility] [email or web address] RICH/carlotta Narrative 07/04/2023 10:04 AM CDT Table formatting from the original result was not included. For Patients: As a result of the Century Cures Act, medical imaging exams and procedure reports are released immediately into your electronic medical record. ??You may view this report before your referring provider. ?? If you have questions, please contact your health care provider. ARTERIAL ULTRASOUND BILATERAL LOWER EXTREMITIES AND ANKLE-BRACHIAL INDICES BILATERAL, 07/03/2023 CLINICAL HISTORY: ??Extremity pain, chronic leg wound. COMPARISON: ??None available. ?? TECHNIQUE: ??Duplex arterial ultrasound examination was performed of bilateral lower extremities with 2D and spectral analysis and color Doppler imaging. ??Ankle-brachial indices were attempted but the patient declined due to severe pain. ??Toe-brachial indices were obtained instead. ?? FINDINGS: ?ARTERIAL DUPLEX US LOWER EXTREMITIES PSV IN CM/SEC ? RIGHT PSV T, M ??VELOCITY RATIO STREET INSPECTOR Proximal ??447 458 M ?? STREET INSPECTOR Distal 397 395 M ?? PFA 172 M ?? SFA Proximal ?? 66 96 M ?? SFA Mid ??116 77 M ?? SFA Distal ?? 33 28 M ?? POP Proximal ?? 36 M ?? POP Distal ??42 M ?? NUTRITIONISTS ??- ?? KAYA ?? 37 M ?? DPA ??33 M ?? T = Multiphasic; M = Monophasic ?? LEFT PSV T, M VELOCITY RATIO STREET INSPECTOR Proximal ??251 M ?? STREET INSPECTOR Distal 211 M ?? PFA 166 M ?? SFA Proximal ?? 57 43 M ?? SFA Mid ?? 30 19 M ?? SFA Distal ?? 15 M ?? POP Proximal ?? 48 M ?? POP Distal ??54 M ?? NUTRITIONISTS ??44 M ?? KAYA ?? 25 M ?? DPA ??10 M ?? Segmental BP Right ??Left ?? Brachial 140 Index - Index Digit ??55 0.39 32 0.23 The systolic blood pressures in the right upper extremity was recorded at 140 mmHg. ??The toe-brachial indices on the right and left were obtained at 0.39 and 0.23 respectively, with toe pressures of 55 and 32 ??mmHg respectively. ?? Lore Noble MD * HBSAG (HBS) (07/03/2023 11:18 AM CDT) Only the most recent of2 resultswithin the time period is included. [facility] HBSAG Nonreactive Nonreactive 07/04/2023 8:42 AM CDT [facility] Blood BLOOD SPECIMEN / Unknown Venipuncture / Unknown 07/03/2023 11:18 AM CDT 07/03/2023 11:45 AM CDT [facility] SEND OUT[facility] Performing Organization Address [facility] Co de Phone Number [facility] [address] [address], [place] * Sodium TODAY (07/01/2023 2:52 PM CDT) Only the most recent of2 resultswithin the time period is included. Pathologist [facility] [place] SODIUM 136 136 - 145 mmol/L 07/01/2023 4:02 PM CDT [facility] Blood BLOOD SPECIMEN / Unknown Butterfly / Unknown 07/01/2023 2:52 PM CDT 07/01/2023 3:02 PM CDT Vikram Dias MD CHEMISTRY Performing Organization Address [facility] Co de Phone Number [facility] [address] [phone], [place] * SOLUBLE TRANSFERRIN FINISHING TRIMMER (06/29/2023 4:19 AM CDT) MECCA.TRANSFERRI N RECEPTOR 2.20 1.90 - 4.40 mg/L 06/30/2023 11:04 AM CDT [facility] Blood BLOOD SPECIMEN / Unknown Butterfly / Unknown 06/29/2023 4:19 AM CDT 06/29/2023 5:30 AM CDT Vikram Dias MD SEND OUTS Performing Organization Address [facility] Co de Phone Number [facility] [address] [phone], [place] * (ABNORMAL) FERRITIN (06/29/2023 4:19 AM CDT) Pathologist [facility] [place] FERRITIN 1,209.0(H) 15.0 - 150.0 ng/mL 06/30/2023 11:03 AM CDT [facility] Blood BLOOD SPECIMEN / Unknown Butterfly / Unknown 06/29/2023 4:19 AM CDT 06/29/2023 5:30 AM CDT Vikram Dias MD CHEMISTRY Performing Organization Address [facility] Co de Phone Number [facility] [address] [place] [address], * SCAN-CARDIAC STRIP (06/29/2023 2:29 AM CDT) Scanner OTHER * CLOSTRIDIOIDES DIFFICILE TOXIN PCR (06/28/2023 4:18 PM CDT) CLOSTRIDIUM DIFFICILE PCR Negative 06/28/2023 6:09 PM CDT [facility] PRESUMPTIVE NAP1 STRAIN Negative 06/28/2023 6:09 PM CDT [facility] Stool STOOL SPECIMEN / Unknown Non-Blood / Unknown 06/28/2023 4:18 PM CDT 06/28/2023 4:32 PM CDT Narrative [facility] - 06/28/2023 6:09 PM CDT The NAP1 (027 or BI) strain is a hypervirulent strain. Detection may be useful for epidemiological purposes. Vikram Dias MD MICROBIOLOGY Performing Organization Address [facility] Co de Phone Number [facility] [address] [place] [address], * (ABNORMAL) Basic metabolic panel AM (06/28/2023 2:52 PM CDT) Only the most recent of8 resultswithin the time period is included. SODIUM 135(L) 136 - 145 mmol/L 06/28/2023 4:11 PM CDT [facility] POTASSIUM 3.3(L) 3.5 - 5.1 mmol/L 06/28/2023 4:11 PM CDT [facility] CHLORIDE 96(L) 98 - 107 mmol/L 06/28/2023 4:11 PM CDT [facility] CO2,TOTAL 25 22 - 29 mmol/L 06/28/2023 4:11 PM CDT [facility] ANION GAP 14 5 - 18 06/28/2023 4:11 PM CDT [facility] GLUCOSE 158(H) 70 - 99 mg/dL 06/28/2023 4:11 PM CDT [facility] CALCIUM 9.2 8.8 - 10.2 mg/dL 06/28/2023 4:11 PM CDT [facility] BUN 32(H) 8 - 23 mg/dL 06/28/2023 4:11 PM CDT [facility] CREATININE 1.83(H) 0.50 - 0.90 mg/dL 06/28/2023 4:11 PM CDT [facility] BUN/CREAT RATIO 17 10 - 20 4:11 PM CDT [facility] eGFR 28(L) >90 mL/min/1.7 3m2 06/28/2023 4:11 PM CDT [facility] Comment:As of 2021, eG FR is calculated by the CKD-EPI creatinine equation without race adjustment. ??eGFR can be influenced by muscle mass, exercise, and diet. ??The reported eGFR is an estimation only and is only applicable if the renal function is stable. Blood BLOOD SPECIMEN / Unknown Butterfly / Unknown 06/28/2023 2:52 PM CDT 06/28/2023 3:00 PM CDT Vikram Dias MD CHEMISTRY [facility] [address] [place] [address], * ECHO TTE COMPLETE WO CONTRAST (06/28/2023 2:32 PM CDT) AORTIC VALVE MEAN PG 6 mmHg EJECTION FRACTION 71 % PEAK TR VELOCITY 2.6 m/s LVEDD 4.4 cm Anatomical Region Laterality Modality Ultrasound 06/28/2023 12:5 0 PM CDT Narrative 06/28/2023 2:49 PM CDT ECHOCARDIOGRAM CYNTHIA HOLBROOK ?Accession#: ?? [id number] : ?1945 78 years Study Date: ?? 06/28/2023 12:50:33 PM Gender: F ? BP: ? 196/84 mmHg Height: 154.00 cm ? BSA: ?1.66 m? ? ? Weight: 68.00 kg ?Tech: ? AH ?Referring MD: LISBET MENJIVAR Site: ? [facility] Reading Location: [facility] IP Patient Location: Procedure: 2D, Spectral Doppler and Color Doppler. Indication for study: CAD Cardiac Rhythm: Normal sinus.Study quality: Fair. Final Impressions: 1. Normal left ventricular size, normal wall thickness, normal global systolic function, calculated EF of 71 %. 2. Right ventricular cavity size is normal, global systolic RV function is normal. 3. Severely enlarged left atrium. 4. The aortic valve is sclerotic, no stenosis and trivial regurgitation. 5. The mitral valve is normal, trace mitral regurgitation. 6. Tricuspid valve is normal. 7. Mildly increased estimated pulmonary pressures by tricuspid regurgitation velocity and right atrial pressure (26 mmHg plus RAP). 8. No pericardial effusion. Chamber Sizes and Function Normal left ventricular size, normal wall thickness, normal global systolic function, calculated EF of 71 %. Left atrial size is severely enlarged. Right ventricular cavity size is normal, global systolic RV function is normal. The right atrium is normal. Right atrial area is 13 cm? ? ?. The pulmonary artery is not well visualized. The sinus of Valsalva is normal sized. The ascending aorta is not well visualized. Valves, RV Pressures and Diastolic Function The aortic valve is sclerotic, no stenosis and trivial regurgitation. The mitral valve is normal in structure, trace mitral regurgitation. Normal diastolic function. The tricuspid valve is normal in structure. Tricuspid regurgitation is mild regurgitation. The tricuspid regurgitant velocity is 2.6 m/s, the estimated right ventricular systolic pressure is 26 mmHg plus right atrial pressure. There is mildly increased estimated pulmonary pressure by tricuspid regurgitation velocity and right atrial pressure. The pulmonic valve is not well visualized. No pulmonary regurgitation. Masses, Effusion, Shunts There is no pericardial effusion. The inferior vena cava is normal sized, respiratory size variation greater than 50%. Interatrial septum is not well visualized. MEASUREMENTS AND CALCULATIONS 2-D Measurements and LV Function: LVID (d) 4.4 cm Planimetered EF 71 % LVID (s) 2.8 cm LV FS% (2D) ? 36 % IVS (d) ??1.0 cm LVOT diameter ?? 2.2 cm LVPW (d) 1.0 cm HR ?72 bpm Ao Sinus 2.9 cm RA area ? 13 cm? ? ? LA ? 4.5 cm Diastology: Mitral ?Tissue Doppler E Peak 0.7 m/s ??e', Septum ? 0.05 m/s A Peak 0.8 m/s ??e', Lateral ?0.09 m/s E/A ?0.9 ?E/e' Average ?? 10.14 DT ? 204 msec Aortic Valve: Vmax ? 1.6 m/s ??BRI (V) ?? 1.57 cm? ? ? VTI ?0.33 m ?? BRI (I) ?? 1.60 cm? ? ? LVOT V max 0.7 m/s ??Max PG ?11 mmHg LVOT VTI ?? 0.14 m ?? Mean PG ?? 6 mmHg SV ? 53 ml ?Dim Index 0.42 SV index ?? 32 ml/m? ? ? CO ?3.8 l/min ?CI ?2.3 l/min/m? ? ? Mitral Valve: MVA ?3.7 cm? ? ? MV P 1/2 59 msec Tricuspid Valve and estimated PA pressures: TR Vmax 2.6 m/s TAPSE 1.6 cm TR maxG 26 mmHg Pulmonic Valve: PV Vmax ??1.0 m/s PV meanG 2 mmHg PV VTI ?? 0.20 m . This study was interpreted by an [facility] accredited facility. ??Final ?? Procedure Note Hanna [address], [facility] - 06/28/2023 ECHOCARDIOGRAM CYNTHIA HOLBROOK : 1945 78 years Study Date: 06/28/2023 12:50:33 PM Gender: F BP: 196/84 mmHg Height: 154.00 cm BSA: 1.66 m? ? ? Weight: 68.00 kg Tech: [facility] MD: LISBET MENJIVAR Site: [facility] Reading Location: [facility] [facility] Patient Location: Procedure: 2D, Spectral Doppler and Color Doppler. Indication for study: CAD Cardiac Rhythm: Normal sinus.Study quality: Fair. Final Impressions: 1. Normal left ventricular size, normal wall thickness, normal globalsystolic function, calculated EF of 71 %. 2. Right ventricular cavity size is normal, global systolic RV functionis normal. 3. Severely enlarged left atrium. 4. The aortic valve is sclerotic, no stenosis and trivialregurgitation. 5. The mitral valve is normal, trace mitral regurgitation. 6. Tricuspid valve is normal. 7. Mildly increased estimated pulmonary pressures by tricuspidregurgitation velocity and right atrial pressure (26 mmHg plus RAP). 8. No pericardial effusion. Chamber Sizes and Function Normal left ventricular size, normal wall thickness, normal globalsystolic function, calculated EF of 71 %. Left atrial size is severelyenlarged. Right ventricular cavity size is normal, global systolic RVfunction is normal. The right atrium is normal. Right atrial area is 13cm? ? ?. The pulmonary artery is not well visualized. The sinus of [place] normal sized. The ascending aorta is not well visualized. Valves, RV Pressures and Diastolic Function The aortic valve is sclerotic, no stenosis and trivial regurgitation. Themitral valve is normal in structure, trace mitral regurgitation. Normaldiastolic function. The tricuspid valve is normal in structure. Tricuspidregurgitation is mild regurgitation. The tricuspid regurgitant velocity is2.6 m/s, the estimated right ventricular systolic pressure is 26 mmHg plusright atrial pressure. There is mildly increased estimated pulmonarypressure by tricuspid regurgitation velocity and right atrial pressure.The pulmonic valve is not well visualized. No pulmonary regurgitation. Masses, Effusion, Shunts There is no pericardial effusion. The inferior vena cava is normal sized,respiratory size variation greater than 50%. Interatrial septum is notwell visualized. MEASUREMENTS AND CALCULATIONS 2-D Measurements and LV Function: LVID (d) 4.4 cm Planimetered EF 71 % LVID (s) 2.8 cm LV FS% (2D) 36 % IVS (d) 1.0 cm LVOT diameter 2.2 cm LVPW (d) 1.0 cm HR 72 bpm Ao Sinus 2.9 cm RA area 13 cm? ? ? LA 4.5 cm Diastology: Mitral Tissue Doppler E Peak 0.7 m/s e', Septum 0.05 m/s A Peak 0.8 m/s e', Lateral 0.09 m/s E/A 0.9 E/e' Average 10.14 DT 204 msec Aortic Valve: Vmax 1.6 m/s BRI (V) 1.57 cm? ? ? VTI 0.33 m BRI (I) 1.60 cm? ? ? LVOT V max 0.7 m/s Max PG 11 mmHg LVOT VTI 0.14 m Mean PG 6 mmHg SV 53 ml Dim Index 0.42 SV index 32 ml/m? ? ? CO 3.8 l/min CI 2.3 l/min/m? ? ? Mitral Valve: MVA 3.7 cm? ? ? MV P 1/2 59 msec Tricuspid Valve and estimated PA pressures: TR Vmax 2.6 m/s TAPSE 1.6 cm TR maxG 26 mmHg Pulmonic Valve: PV Vmax 1.0 m/s PV meanG 2 mmHg PV VTI 0.20 m . This study was interpreted by an IAC accredited facility. Final Lisbet KEEN ECHO ORD * SCAN-CARDIAC STRIP (06/28/2023 1:02 AM CDT) Scanner OTHER * ENDOSCOPY (06/27/2023 11:26 AM CDT) 06/27/2023 11:2 6 AM CDT Narrative Transcriptions Kavin Fournier MD - 06/27/2023 1:00 PM CDT [facility] Patient Name: Cynthia Holbrook Procedure Date: 06/27/2023 Gender: Female Date of : 1945 Admit Type: Inpatient Procedure: Upper GI endoscopy Proceduralist: Kavin Rangel MD - [facility] Indications/Pre-Op Diagnosis: Unexplained iron deficiency anemia, recent Stephani Cardoza tear treated at an outside hospital Medications: Monitored Anesthesia Care Procedure Description: Risk of bleeding, infection, perforation, need for surgery and alternatives discussed. The endoscope [id number] was introduced through the mouth, and advanced to the second part of duodenum. The upper GI endoscopy was accomplished without difficulty. The patient tolerated the procedure well. Complications: No immediate complications. Estimated Blood Loss & Specimen: Estimated blood loss: none. Specimen collected: None Findings: The examined esophagus was normal. Clip at GE junction, site of previously treated MW tear. No ulcer or bleeding noted. The entire examined stomach was normal. Normal PEG site. The duodenal bulb, first portion of the duodenum and second portionof the duodenum were normal. Impressions/Post-Op Diagnosis: - No blood or bleeding sources found. - Normal esophagus. - Clip at GE junction, site of previously treated MW tear. No ulceror bleeding noted. - Normal stomach. Normal PEG site. - Normal duodenal bulb, first portion of the duodenum and secondportion of the duodenum. - No specimens collected. Recommendation: - Return patient to [facility] for ongoing care. - Advance diet as tolerated. - Continue present medications. Kavin Rangel MD 06/27/2023 1:00:09 PM This report has been signed electronically. Note Initiated On: 06/27/2023 11:26 AM Kavin Rangel MD PROCEDURE O RD * (ABNORMAL) CBC no diff AM (06/27/2023 6:06 AM CDT) Only the most recent of5 resultswithin the time period is included. WHITE BLOOD COUNT 7.0 4.5 - 11.0 thou/cu mm 06/27/2023 6:25 AM T [facility] RED BLOOD COUNT 2.51(L) 4.00 - 5.20 mil/cu mm 06/27/2023 6:25 AM T [facility] HEMOGLOBIN 7.3(L) 12.0 - 16.0 g/dL 06/27/2023 6:25 AM [facility] HEMATOCRIT 22.4(L) 33.0 - 51.0 % 06/27/2023 6:25 AM T [facility] MCV 89 80 - 100 fL 06/27/2023 6:25 AM T [facility] MCH 29.1 26.0 - 34.0 pg 06/27/2023 6:25 AM CDT [facility] MCHC 32.6 32.0 - 36.0 g/dL 06/27/2023 6:25 AM CDT [facility] RDW 16.3(H) 11.5 - 15.5 % 06/27/2023 6:25 AM CDT [facility] PLATELET COUNT 251 140 - 440 thou/cu mm 06/27/2023 6:25 AM CDT [facility] MPV 10.2 6.5 - 11.0 fL 06/27/2023 6:25 AM CDT [facility] NRBC 0.0 % 06/27/2023 6:25 AM CDT [facility] ABS NRBC 0.0 thou /cu mm 06/27/2023 6:25 AM CDT [facility] Blood BLOOD SPECIMEN / Unknown Venipuncture / Unknown 06/27/2023 6:06 AM CDT 06/27/2023 6:16 AM CDT Vikram Dias MD HEMATOLOGY Performing Organization Address City/State/[facility] Co de Phone Number [facility] [address] [place] [id number], * SCAN-CARDIAC STRIP (06/27/2023 1:24 AM CDT) Scanner OTHER * SCAN-CARDIAC STRIP (06/26/2023 8:45 PM CDT) Scanner OTHER * COVID/FLU/RSV PANEL (06/26/2023 1:24 PM CDT) [facility] COVID 19 [facility] Negative Negative 06/26/2023 3:13 PM CDT [facility] Comment:All PCR tests are isaacs bject to false negative result due to variability in viral load and collection technique. A negative result does not rule out a SARS-CoV-2 infection. Clinical correlation required. INFLUENZA A PCR Negative 4 3:13 PM CDT [facility] TRAL [facility] INFLUENZA B PCR Negative 4 3:13 PM CDT [facility] Respiratory Syncytial Virus Negative 06/26/2023 3:13 PM CDT [facility] Swab NASOPHARYNGEAL SWAB / Unknown Non-Blood / Unknown 06/26/2023 1:24 PM CDT 06/26/2023 1:38 PM CDT Vikram Dias MD MICROBIOLOGY [facility] [address] [place] [address], * (ABNORMAL) AEROBIC BACTERIAL CULTURE, STAIN (06/26/2023 1:24 PM CDT) CULTURE RESULT(A) 07/01/2023 10:16 AM CDT [facility] CULTURE 1+ Pseudomonas aeruginosa 07/01/2023 10:16 AM CDT [facility] CULTURE 1+ Proteus mirabilis 07/01/2023 10:16 AM CDT [facility] CULTURE 1+ Enterococcus faecalis 07/01/2023 10:16 AM CDT [facility] GRAM STAIN 1+ Epithelial cells 07/01/2023 10:16 AM CDT [facility] GRAM STAIN 2+ PMNs 07/01/2023 10:16 AM CDT [facility] GRAM STAIN No RBCs 07/01/2023 10:16 AM CDT [facility] GRAM STAIN No organisms seen 07/01/2023 10:16 AM CDT [facility] Other (Other) Non-Blood / Unknown 06/26/2023 1:24 PM CDT 06/26/2023 1:38 PM CDT Narrative Organism Antibiotic Method Susceptibility Pseudomonas aeruginosa CEFTAZIDIME 2: S Pseudomonas aeruginosa LEVOFLOXACIN 1: S Pseudomonas aeruginosa CIPROFLOXACIN <=0.25: S Pseudomonas aeruginosa PIPERACILLIN/TAZO 8: S Pseudomonas aeruginosa CEFEPIME <=1: S Pseudomonas aeruginosa TOBRAMYCIN <=1: S Pseudomonas aeruginosa MEROPENEM 1: S Proteus mirabilis TRIMETHOPRIM/SULF >=16/304: R Proteus mirabilis AMPICILLIN >=32: R Proteus mirabilis GENTAMICIN 8: I Proteus mirabilis CEFTRIAXONE <=1: S Proteus mirabilis CEFTAZIDIME <=1: S Proteus mirabilis LEVOFLOXACIN 1: I Proteus mirabilis CIPROFLOXACIN 1: R Proteus mirabilis PIPERACILLIN/TAZO <=4: S Proteus mirabilis AMPICILLIN/SULBACTAM 8: S Proteus mirabilis CEFEPIME <=1: S Proteus mirabilis TOBRAMYCIN 4: S Proteus mirabilis MEROPENEM <=0.25: S Enterococcus faecalis VANCOMYCIN 1: S Enterococcus faecalis AMPICILLIN <=2: S Vikram Dias MD MICROBIOLOGY Performing Organization Address City/[facility] Co de Phone Number [facility] [address] [place] [address], [place] * EXTRA TUBE LIGHT GREEN (06/26/2023 1:05 PM CDT) Blood BLOOD SPECIMEN / Unknown Non-Lab Venipuncture / Unknown 06/26/2023 1:05 PM CDT 06/26/2023 1:21 PM CDT Vikram Dias MD LABORATORY Performing Organization Address [facility] Co de Phone Number [facility] [address] [place] [address], * BLOOD CULTURE (06/26/2023 12:53 PM CDT) Only the most recent of4 resultswithin the time period is included. CULTURE No Growth. 06/30/2023 3:06 PM CDT [facility] Blood BLOOD SPECIMEN / Unknown Line/Port / Unknown 06/26/2023 12:53 PM CDT 06/26/2023 1:01 PM CDT Narrative [facility] - 06/30/2023 3:06 PM CDT Low volume blood culture received; possible false negative culture. Lalita Castillo MD MICROBIOLOGY Performing Organization Address [facility] Co de Phone Number [facility] [address] [place] [phone], * VANCOMYCIN (06/26/2023 12:53 PM CDT) VANCOMYCIN 21.0 ug/mL 06/26/2023 2:14 PM CDT [facility] Comment:No Reference Range D efined. DATE OF LAST DOSE,RANDOM 06/26/2023 06/26/2023 2:14 PM CDT [facility] TR[facility] LAB[facility] TIME OF LAST DOSE,RANDOM 12:00 AM 06/26/2023 2:14 PM CDT [facility] Blood BLOOD SPECIMEN / Unknown Line/Port / Unknown 06/26/2023 12:53 PM CDT 06/26/2023 1:02 PM CDT Lisbet KEEN CHEMISTRY Performing Organization Address [facility] Co de Phone Number [facility] [address] [place] [address], [place] * MR HEAD BRAIN WO (06/26/2023 11:20 AM CDT) Anatomical Region Laterality Modality BRAIN, HEAD Magnetic Resonan ce 06/26/2023 12:0 2 PM CDT Narrative 06/26/2023 12:02 PM CDT For Patients: ??As a result of the Century Cures Act, medical imaging exams and procedure reports are released immediately into your electronic medical record. ??You may view this report before your referring provider. ??If you have questions, please contact your health care provider. Indication: Altered level of consciousness, concern for basilar artery thrombus versus atherosclerosis on outside CT Technique: Multiplanar, multisequence MRI of the brain obtained without contrast. Comparison: MRI brain and MRA head/neck 06/25/2023 Findings: Redemonstration of a small focus of evolving ischemia in the left periatrial white matter. No other abnormal restricted diffusion. No evidence of hemorrhagic transformation. Scattered chronic lacunar infarcts, such as at the right thalamus, right tammy sav, and right cerebellar hemisphere. Multiple foci of susceptibility are noted, greatest throughout the deep quintero nuclei, suggestive of chronic hypertensive microhemorrhage. FLAIR hyperintense foci are noted throughout the supratentorial white matter and sav, typical of chronic microangiopathy. Generalized cerebral volume loss. Partial empty sella configuration. Major expected intracranial flow voids are visualized. No paranasal sinus air-fluid level or mastoid effusion. Bilateral lens implants. Impression: 1. Similar/stable small focus of evolving ischemia in the left periatrial white matter. No new areas of acute ischemia. No evidence of hemorrhagic transformation. 2. Generalized cerebral volume loss, chronic microangiopathy changes, and old lacunar infarcts. 3. Multiple chronic microhemorrhages predominantly involving the deep quintero nuclei, suggesting hypertensive etiology. Dictated by Kaelyn Tanner MD @ 06/26/2023 12:02:17 PM (Electronically Signed) Procedure Note Kaelyn Tanner DO - 06/26/2023 For Patients: As a result of the Cures Act, medical imagingexams and procedure reports are released immediately into your electronicmedical record. You may view this report before your referring provider.If you have questions, please contact your health care provider. Indication: Altered level of consciousness, concern for basilar artery thrombus versusatherosclerosis on outside CT Technique: Multiplanar, multisequence MRI of the brain obtained without contrast. Comparison: MRI brain and MRA head/neck 06/25/2023 Findings: Redemonstration of a small focus of evolving ischemia in the leftperiatrial white matter. No other abnormal restricted diffusion. Noevidence of hemorrhagic transformation. Scattered chronic lacunarinfarcts, such as at the right thalamus, right tammy sav, and rightcerebellar hemisphere. Multiple foci of susceptibility are noted, greatestthroughout the deep quintero nuclei, suggestive of chronic hypertensivemicrohemorrhage. FLAIR hyperintense foci are noted throughout thesupratentorial white matter and sav, typical of chronicmicroangiopathy. Generalized cerebral volume loss. Partial empty sella configuration. Majorexpected intracranial flow voids are visualized. No paranasal sinusair-fluid level or mastoid effusion. Bilateral lens implants. Impression: 1. Similar/stable small focus of evolving ischemia in the left periatrialwhite matter. No new areas of acute ischemia. No evidence of hemorrhagictransformation. 2. Generalized cerebral volume loss, chronic microangiopathy changes, andold lacunar infarcts. 3. Multiple chronic microhemorrhages predominantly involving the deep graynuclei, suggesting hypertensive etiology. Dictated by Kaelyn Tanner MD @ 06/26/2023 12:02:17 PM (Electronically Signed) Lisbet KEEN MR * EKG 12 LEAD (06/26/2023 2:40 AM CDT) Only the most recent of2 resultswithin the time period is included. Interpretation Normal sinus rhythm Left axis deviation Moderate voltage criteria for LVH, may be normal variant ( R in aVL , [place] product ) Abnormal ECG When compared with ECG of 04-JUN-2023 10:45, Criteria for Septal infarct are no longer Present No significant change was found BEYOND NOW Ventricular Rate 70 BPM BEYOND NOW Atrial Rate 70 BPM BEYOND NOW P-R Interval 182 ms BEYOND NOW QRS Duration 98 ms BEYOND NOW QT 420 ms BEYOND NOW QTc 453 ms BEYOND NOW P [place] 37 degrees BEYOND NOW R [place] -31 degrees BEYOND NOW T [place] 46 degrees BEYOND NOW 06/26/2023 2:40 AM CDT 06/26/2023 7:24 PM CDT Narrative BEYOND NOW - 06/26/2023 7:24 PM CDT Test Indication: Stat Quyen Worley MD EKG ORD Performing Organization Address City/State/[facility] Co de Phone Number BEYOND NOW [place], [place] * SCAN-CARDIAC STRIP (06/26/2023 12:01 AM CDT) Scanner OTHER * (ABNORMAL) CBC WITH AUTO DIFFERENTIAL (06/26/2023 12:01 AM CDT) Only the most recent of2 resultswithin the time period is included. WHITE BLOOD COUNT 7.1 4.5 - 11.0 thou/cu mm 06/26/2023 12:13 AM CDT [facility] RED BLOOD COUNT 2.54(L) 4.00 - 5.20 mil/cu mm 06/26/2023 12:13 AM [facility] TRAL LAB[facility] HEMOGLOBIN 7.6(L) 12.0 - 16.0 g/dL 06/26/2023 12:13 AM [facility] HEMATOCRIT 22.5(L) 33.0 - 51.0 % 06/26/2023 12:13 AM [facility] MCV 89 80 - 100 fL 06/26/2023 12:13 AM [facility] MCH 29.9 26.0 - 34.0 pg 06/26/2023 12:13 AM [facility] MCHC 33.8 32.0 - 36.0 g/dL 06/26/2023 12:13 AM [facility] RDW 16.1(H) 11.5 - 15.5 % 06/26/2023 12:13 AM [facility] PLATELET COUNT 279 140 - 440 thou/cu mm 06/26/2023 12:13 AM [facility] MPV 9.6 6.5 - 11.0 fL 06/26/2023 12:13 AM [facility] NRBC 0.0 % 06/26/2023 12:13 AM [facility] ABS NRBC 0.0 thou /cu mm 06/26/2023 12:13 AM [facility] % NEUT 73.9 % 06/26/2023 12:13 AM [facility] % LYMPH 16.3 % 06/26/2023 12:13 AM [facility] % MONO 9.3 % 06/26/2023 12:13 AM [facility] % EOS 0.0 % 06/26/2023 12:13 AM [facility] % BASO 0.1 % 06/26/2023 12:13 AM [facility] % IMMATURE GRAN (METAS,MYELOS,ID OS) 0.4 % 06/26/2023 12:13 AM CDT [facility] ABSOLUTE NEUTROPHILS 5.3 1.7 - 7.0 thou/cu mm 06/26/2023 12:13 AM CDT [facility] ABSOLUTE LYMPHOCYTES 1.2 0.9 - 2.9 thou/cu mm 06/26/2023 12:13 AM CDT [facility] ABSOLUTE MONOCYTES 0.7 <0.9 thou/cu mm 06/26/2023 12:13 AM CDT [facility] ABSOLUTE EOSINOPHILS 0.0 <0.5 thou/cu mm 06/26/2023 12:13 AM CDT [facility] ABSOLUTE BASOPHILS 0.0 <0.3 thou/cu mm 06/26/2023 12:13 AM CDT [facility] ABSOLUTE IMMATURE GRANULOCYTES(MET ,MYELOS,PROS) 0.0 <0.3 thou/cu mm 06/26/2023 12:13 AM CDT [facility] Blood BLOOD SPECIMEN / Unknown Non-Lab Venipuncture / Unknown 06/26/2023 12:01 AM CDT 06/26/2023 12:09 AM CDT Lisbet Menjivar [facility] HEMATOLOGY [facility] [address] [place] [id number], * LACTATE VENOUS (06/26/2023 12:01 AM CDT) Only the most recent of2 resultswithin the time period is included. LACTATE,VENOUS 1.5 0.5 - 2.0 mmol/L 06/26/2023 12:43 AM CDT [facility] Blood BLOOD SPECIMEN / Unknown Non-Lab Venipuncture / Unknown 06/26/2023 12:01 AM CDT 06/26/2023 12:10 AM CDT Lisbet CHRIS CHEMISTRY [facility] [address] [place] [address], * (ABNORMAL) PROCALCITONIN (06/26/2023 12:01 AM CDT) PROCALCITONIN 1.17(H) ng/ml 06/26/2023 3:00 AM CDT [facility] Blood BLOOD SPECIMEN / Unknown Non-Lab Venipuncture / Unknown 06/26/2023 12:01 AM CDT 06/26/2023 12:09 AM CDT Narrative [facility] - 06/26/2023 3:00 AM CDT Procalcitonin for initial assessment of Lower Respiratory Tract Infection: Results Interpretation <0.10 ng/mL Antibiotic therapy strongly discoraged. ??Indicates absent of bacterial infection. * 0.10 - 0.25 ng/mL Antibiotic therapy discouraged. ??Bacterial infection unlikely. * 0.26 - 0.50 ng/mL Antibiotic therapy encouraged. ??Bacterial infection possible. >0.50 ng/mL Antibiotic therapy strongly encouraged. ??Suggestive of presence of bacterial infection. *Antibiotic therapy should be considered regardless of PCT result if the patient is clinically unstable, is at high risk for adverse outcome, has strong evidence of bacterial pathogen, or the clinical context indicates antibiotic therapy is warranted. ??If antibiotics are withheld, reassess if symptoms persist/worsen and/or repeat PCT measurement within 6-24 hours. ? In order to assess treatment success and to support a decision to discontinue antibiotic therapy, follow up samples should be tested once every 1-2 days, based upon physician discretion taking into account patient's evolution and progress. Procalcitonin for initial assessment of severe sepsis risk: Results Interpretation <0.5 ng/ml A PCT level below 0.5 ng/ml on the first day of ICU admission is associated with a low risk for progression to severe sepsis and/or septic shock. > 2.0 ng/mL A PCT level above 2.0 ng/mL on the first day of ICU admission is associated with a high risk for progression to severe sepsis and/or septic shock. Note: Concentrations < 0.5 ng/mL do not exclude an infection, on account of localized infections (without systemic signs) which can be associated with such low concentrations, or a systemic infection in its initial stages(< 6 hours). Furthermore, increased procalcitonin can occur without infection. PCT concentrations between 0.5 and 2.0 ng/mL should be interpreted taking into account the patient's history. It is recommended to retest PCT within 6-24 hours if any concentrations < 2 ng/mL are obtained. Lisbet CHRIS SEND OUTS Performing Organization Address [facility] Co de Phone Number [facility] [address] [place] [address], [place] * (ABNORMAL) TSH (06/26/2023 12:01 AM CDT) TSH 8.27(H) 0.27 - 4.20 uIU/mL 06/26/2023 12:48 AM CDT [facility] Blood BLOOD SPECIMEN / Unknown Non-Lab Venipuncture / Unknown 06/26/2023 12:01 AM CDT 06/26/2023 12:09 AM CDT Narrative [facility] - 06/26/2023 12:48 AM CDT In Adults, TSH values between 5.00 and 10.00 uIU/ml do not necessarily indicate the presence of Hypothyroidism. Correlation with clinical findings such as presence of goiter and/or Thyroperoxidase (TPO) Antibody may be helpful. For more information please refer to SRAVANTHI 2004; 291: 228-238. Lisbet KEEN CHEMISTRY Performing Organization Address [facility]/ZIP Co de Phone Number [facility] [address] [place] [address], [place] * (ABNORMAL) Protime - INR (06/26/2023 12:01 AM CDT) Only the most recent of2 resultswithin the time period is included. INR 1.3(H) <1.3 06/26/2023 12:24 AM CDT [facility] PROTIME 14.6(H) 10.3 - 12.3 sec 06/26/2023 12:24 AM CDT [facility] Blood BLOOD SPECIMEN / Unknown Non-Lab Venipuncture / Unknown 06/26/2023 12:01 AM CDT 06/26/2023 12:09 AM CDT Narrative [facility] - 06/26/2023 12:24 AM CDT ?Therapeutic Range 2.0-3.0 for most anticoagulated patients 2.5-3.5 or 4.0 for high risk patients The INR is only used for patients on stable oral anticoagulant therapy. It makes no significant contribution to the diagnosis or treatment of patients whose Protime is prolonged for other reasons. INR results are increased when heparin levels exceed 1.0 U/mL, which corresponds to an aPTT >125 seconds if the patient is on UFH. Lisbet KEEN HEMATOLOGY Performing Organization Address City/[facility] Co de Phone Number [facility] [facility] [address] [place] [address], * LIPASE (06/26/2023 12:01 AM CDT) LIPASE 49.8 13.0 - 60.0 IU/L 06/26/2023 12:48 AM CDT [facility] Blood BLOOD SPECIMEN / Unknown Non-Lab Venipuncture / Unknown 06/26/2023 12:01 AM CDT 06/26/2023 12:09 AM CDT Lisbet CHRIS CHEMISTRY Performing Organization Address [facility]/ZIP Co de Phone Number [facility] [address] [place] [address], * (ABNORMAL) Hepatic Function Panel (06/26/2023 12:01 AM CDT) ALBUMIN 3.5(L) 4.0 - 4.9 g/dL 06/26/2023 12:48 AM CDT [facility] PROTEIN,TOTAL 6.6 6.0 - 8.0 g/dL 06/26/2023 12:48 AM CDT [facility] BILIRUBIN,TOTAL 0.4 0.0 - 1.2 mg/dL 06/26/2023 12:48 AM CDT [facility] BILIRUBIN,DIRECT <0.2 0.0 - 0.3 mg/dL 06/26/2023 12:48 AM CDT [facility] BILIRUBIN,INDIRE CT 06/26/2023 12:48 AM CDT [facility] Comment:Unable to calculate, Direct Bili <0.2 ALK PHOSPHATASE 73 35 - 104 IU/L 06/26/2023 12:48 AM CDT [facility] ALT (SGPT) 9(L) 10 - 35 IU/L 06/26/2023 12:48 AM CDT [facility] AST (SGOT) 18 10 - 35 IU/L 06/26/2023 12:48 AM CDT [facility] Blood BLOOD SPECIMEN / Unknown Non-Lab Venipuncture / Unknown 06/26/2023 12:01 AM CDT 06/26/2023 12:09 AM CDT Lisbet Menjivar [facility] CHEMISTRY [facility] [address] [place] [address], * MRSA/SA PCR (06/25/2023 11:21 PM CDT) MRSA DNA PCR Negative Negative 06/26/2023 12:38 AM CDT [facility] STAPHYLOCOCCUS AUREUS PCR Negative Negative 06/26/2023 12:38 AM CDT [facility] Other SPECIMEN FROM INTERNAL NOSE / Unknown Non-Blood / Unknown 06/25/2023 11:21 PM CDT 06/25/2023 11:28 PM CDT Narrative [facility] - 06/26/2023 12:38 AM CDT Test result does not preclude MRSA or SA nasal colonization. Lisbet Menjivar [facility] MICROBIOLOGY [facility] [address] [place] [address], * SCAN-CARDIAC STRIP (06/25/2023 9:55 PM CDT) Scanner OTHER * XR CHEST 1 VIEW PORTABLE (06/25/2023 9:47 PM CDT) Only the most recent of2 resultswithin the time period is included. Anatomical Region Laterality Modality HEART, THORAX, CHEST Digital Rad iography 06/25/2023 10:0 3 PM CDT Impressions 06/25/2023 10:03 PM CDT Mild prominence of interstitial markings, may represent a component of mild interstitial edema. Dictated by Froylan Wetzel MD @ Jun 25 2023 10:03PM (Electronically Signed) [email or web address] Narrative 06/25/2023 10:03 PM CDT For Patients: ??As a result of the Cures Act, medical imaging exams and procedure reports are released immediately into your electronic medical record. ??You may view this report before your referring provider. ??If you have questions, please contact your health care provider. INDICATION: Eval lung infiltrate. TECHNIQUE: Chest 1 view. COMPARISON: 06/04/2023. FINDINGS: Cardiovascular and mediastinum: Stable cardiomediastinal silhouette. Aortic atherosclerotic calcifications. Right IJ dual-lumen catheter tip projects over the right atrium, unchanged. Lungs and pleural spaces: Mild prominence of interstitial markings. Left basilar atelectasis. No large pleural effusion. No pneumothorax. Bones and soft tissues: Degenerative changes of the spine and shoulders. Procedure Note Froylan Wetzel MD - 06/25/2023 For Patients: As a result of the Cures Act, medical imagingexams and procedure reports are released immediately into your electronicmedical record. You may view this report before your referring provider.If you have questions, please contact your health care provider. INDICATION: Eval lung infiltrate. TECHNIQUE: Chest 1 view. COMPARISON: 06/04/2023. FINDINGS: Cardiovascular and mediastinum: Stable cardiomediastinal silhouette.Aortic atherosclerotic calcifications. Right IJ dual-lumen catheter tipprojects over the right atrium, unchanged. Lungs and pleural spaces: Mild prominence of interstitial markings. Leftbasilar atelectasis. No large pleural effusion. No pneumothorax. Bones and soft tissues: Degenerative changes of the spine and shoulders. IMPRESSION: Mild prominence of interstitial markings, may represent a component ofmild interstitial edema. Dictated by Froylan Wetzel MD @ Jun 25 2023 10:03PM (Electronically Signed) [email or web address] [facility] * SCAN-CARDIAC STRIP (06/25/2023 12:00 AM CDT) Narrative 06/25/2023 12:00 AM CDT Ordered by an unspecified provider. Other Clinical Staff OTHER * (ABNORMAL) CREATININE (06/12/2023 7:22 AM MATERIALS DEVELOPMENT ENGINEER) eGFR 22(L) >90 mL/min/1.7 3m2 06/12/2023 7:52 AM MATERIALS DEVELOPMENT ENGINEER [facility] Comment:As of 2021, eG FR is calculated by the CKD-EPI creatinine equation without race adjustment. ??eGFR can be influenced by muscle mass, exercise, and diet. ??The reported eGFR is an estimation only and is only applicable if the renal function is stable. CREATININE 2.25(H) 0.50 - 0.90 mg/dL 06/12/2023 7:52 AM MATERIALS DEVELOPMENT ENGINEER [facility] Blood BLOOD SPECIMEN / Unknown Arterial / Unknown 06/12/2023 7:22 AM MATERIALS DEVELOPMENT ENGINEER 06/12/2023 7:27 AM MATERIALS DEVELOPMENT ENGINEER Jazzmine Amin MD CHEMISTRY [facility] SENDOUT INTERNAL ZIP [id number] [place] [id number] * CO2,TOTAL (06/12/2023 7:22 AM MATERIALS DEVELOPMENT ENGINEER) CO2,TOTAL 29 22 - 29 mmol/L 06/12/2023 7:52 AM MATERIALS DEVELOPMENT ENGINEER [facility] Blood BLOOD SPECIMEN / Unknown Arterial / Unknown 06/12/2023 7:22 AM MATERIALS DEVELOPMENT ENGINEER 06/12/2023 7:27 AM MATERIALS DEVELOPMENT ENGINEER Jazzmine Amin MD CHEMISTRY [facility] [address] [address]IP [id number] [address] [place] [address] * SCAN-CARDIAC STRIP (06/11/2023 10:34 AM MATERIALS DEVELOPMENT ENGINEER) Scanner OTHER * SCAN-CARDIAC STRIP (06/11/2023 5:34 AM MATERIALS DEVELOPMENT ENGINEER) Scanner OTHER * SCAN-CARDIAC STRIP (06/10/2023 10:21 PM MATERIALS DEVELOPMENT ENGINEER) Scanner OTHER * SCAN-CARDIAC STRIP (06/10/2023 7:37 AM MATERIALS DEVELOPMENT ENGINEER) Scanner OTHER * SCAN-CARDIAC STRIP (06/10/2023 4:24 AM MATERIALS DEVELOPMENT ENGINEER) Scanner OTHER * SCAN-CARDIAC STRIP (06/09/2023 7:45 AM MATERIALS DEVELOPMENT ENGINEER) Scanner OTHER * SCAN-CARDIAC STRIP (2023 3:18 PM MATERIALS DEVELOPMENT ENGINEER) Scanner OTHER * SCAN-CARDIAC STRIP (2023 7:40 AM MATERIALS DEVELOPMENT ENGINEER) Scanner OTHER * SCAN-CARDIAC STRIP (2023 12:26 AM MATERIALS DEVELOPMENT ENGINEER) Scanner OTHER * SCAN-CARDIAC STRIP (06/07/2023 4:05 PM MATERIALS DEVELOPMENT ENGINEER) Scanner OTHER * SCAN-CARDIAC STRIP (06/07/2023 10:43 AM MATERIALS DEVELOPMENT ENGINEER) Scanner OTHER * SCAN-CARDIAC STRIP (06/06/2023 7:57 PM MATERIALS DEVELOPMENT ENGINEER) Scanner OTHER * SCAN-CARDIAC STRIP (06/06/2023 5:10 PM MATERIALS DEVELOPMENT ENGINEER) Scanner OTHER * SCAN-CARDIAC STRIP (06/06/2023 7:41 AM MATERIALS DEVELOPMENT ENGINEER) Scanner OTHER * SCAN-CARDIAC STRIP (06/06/2023 4:28 AM MATERIALS DEVELOPMENT ENGINEER) Scanner OTHER * TRANSFUSE RBC (NURSE COMMUNICATION ORDER) (06/05/2023 1:55 PM MATERIALS DEVELOPMENT ENGINEER) Blood BLOOD SPECIMEN / Unknown Cesar Reddy MD NURSING BLOOD BANK * RBC W/O TYPE & SCREEN (06/05/2023 10:28 AM MATERIALS DEVELOPMENT ENGINEER) Only the most recent of2 resultswithin the time period is included. QUANTITY 1 06/05/2023 10:28 AM MATERIALS DEVELOPMENT ENGINEER [facility] BLOOD BANK Blood BLOOD SPECIMEN / Unknown 06/05/2023 10:14 AM MATERIALS DEVELOPMENT ENGINEER Cesar Reddy MD BLOOD BANK Performing Organization Address City/State/[facility] Co de Phone Number [facility] BLOOD BANK [address] [place] [address] * RED BLOOD CELLS EA UNIT (06/05/2023 10:28 AM MATERIALS DEVELOPMENT ENGINEER) Only the most recent of2 resultswithin the time period is included. CROSSMATCH Compatible Compatible [facility] BLOOD BANK PRODUCT BLOOD TYPE O Rh Positive [facility] BLOOD BANK PRODUCT ID NUMBER [id number] [facility] BLOOD BANK PRODUCT STATUS Transfused [facility] PRODUCT DESCRIPTION RBC -1 LR [facility] BLOOD BANK PRODUCT CODE [id number] [facility] BLOOD BANK ISSUE DATE/TIME 06/05/23 10:30 [facility] BLOOD BANK Cesar Reddy MD BLOOD BANK [facility] BLOOD BANK [address] [place] [address] * ENDOSCOPY (06/05/2023 10:24 AM MATERIALS DEVELOPMENT ENGINEER) 06/05/2023 10:2 4 AM MATERIALS DEVELOPMENT ENGINEER Narrative Transcriptions Michael Ricks MD - 06/05/2023 11:57 AM CST Patient Name: Cynthia Holbrook Procedure Date: 06/05/2023 Gender: Female Date of : 1945 Admit Type: Inpatient Procedure: Upper GI endoscopy Proceduralist: Michael Ricks MD Indications/Pre-Op Diagnosis: Hematemesis Medications: Propofol per Anesthesia Procedure Description: The patient had risks, benefits and alternatives explained to andgave informed consent. The patient had a stable cardiopulmonary status and judged an adequate candidate for conscious sedation. The endoscope [id number] was introduced through the mouth, and advanced to the second part of duodenum. The upper GI endoscopy was accomplished without difficulty. The patient tolerated the procedure well. Complications: No immediate complications. Estimated blood loss: Minimal. Estimated Blood Loss & Specimen: Estimated blood loss was minimal. Specimen collected: None Findings: The Z-line was regular. A non-bleeding Stephani-Cardoza tear with clot overlying tear withstigmata of recent bleeding was found. Area was successfully injected with 0.1 mg/mL solution of epinephrine for hemostasis. For hemostasis, two hemostatic clips were successfully placed (MR conditional). There wasno bleeding at the end of the procedure. There was evidence of a gastrostomy present in the gastric body. This was characterized by healthy appearing mucosa. No other gross lesions seen. The duodenal bulb was normal. Few non-bleeding superficial duodenal ulcers with no stigmata of bleeding were found in the second portion of the duodenum. Impressions/Post-Op Diagnosis: - Stephani-Cardoza tear. Injected. Clips (MR conditional) were placed. - Gastrostomy present characterized by healthy appearing mucosa. - Normal duodenal bulb. - Non-bleeding duodenal ulcers with no stigmata of bleeding. - No specimens collected. Recommendation: - Return patient to hospital [facility] for ongoing care. - Monitor Hb Q8-12hr. - Would monitor in hospital 48-72 hrs. - Keep on IV PPI BID while in hospital. - Will schedule follow up EGD in 8 weeks to ensure healing. - Clear liquid diet today and will advance during hospital stay. Michael Ricks MD 06/05/2023 11:56:50 AM Note Initiated On: 06/05/2023 10:24 AM Total Procedure Duration Time 0 hours 19 minutes 32 seconds Michael Ricks MD PROCEDURE ORD * SCAN-CARDIAC STRIP (06/05/2023 7:49 AM MATERIALS DEVELOPMENT ENGINEER) Scanner OTHER * TRANSFUSE RBC (NURSE COMMUNICATION ORDER) (06/05/2023 5:33 AM MATERIALS DEVELOPMENT ENGINEER) Blood BLOOD SPECIMEN / Unknown Hanna Peterson NP NURSING BLOOD BANK * SCAN-CARDIAC STRIP (06/04/2023 5:13 PM MATERIALS DEVELOPMENT ENGINEER) Scanner OTHER * CT Abdomen Pelvis w IV (Oral Contrast = NO) (06/04/2023 2:14 PM MATERIALS DEVELOPMENT ENGINEER) Anatomical Region Laterality Modality Abdomen, Pelvis, AORTA, LIVER, SPLEEN Computed Tomography 06/04/2023 2:14 PM MATERIALS DEVELOPMENT ENGINEER Impressions 06/04/2023 2:24 PM MATERIALS DEVELOPMENT ENGINEER 1. ??No acute findings in the abdomen and pelvis. Narrative 06/04/2023 2:24 PM MATERIALS DEVELOPMENT ENGINEER For Patients: As a result of the Cures Act, medical imaging exams and procedure reports are released immediately into your electronic medical record. You may view this report before your referring provider. If you have questions, please contact your health care provider. EXAM: CT ABDOMEN PELVIS W LOCATION: [facility] MEDICAL IMAGING DATE: 06/04/2023 INDICATION: Abdominal or pelvic pain COMPARISON: None. TECHNIQUE: CT scan of the abdomen and pelvis was performed following injection of IV contrast. Multiplanar reformats were obtained. Dose reduction techniques were used. CONTRAST: Omnipaque [id number] FINDINGS: LOWER CHEST: Minimal bibasilar atelectasis. HEPATOBILIARY: Liver and gallbladder within normal limits. PANCREAS: Normal. SPLEEN: Normal. ADRENAL GLANDS: Normal. KIDNEYS/BLADDER: Bilateral renal cysts are noted which are benign and needs no further follow-up. Kidneys are otherwise unremarkable with no evidence of hydronephrosis. BOWEL: No obstruction or inflammatory change. Gastrostomy tube is noted. LYMPH NODES: Normal. VASCULATURE: Unremarkable. PELVIC ORGANS: Bladder within normal limits. Fibroids are noted within the uterus. MUSCULOSKELETAL: Total left hip replacement with no evidence of hardware complication. Degenerative changes of the spine. Procedure Note Morgan Eason MD - 06/04/2023 For Patients: As a result of the Cures Act, medical imagingexams and procedure reports are released immediately into your electronicmedical record. You may view this report before your referring provider.If you have questions, please contact your health care provider. EXAM: CT ABDOMEN PELVIS W LOCATION: [facility] MEDICAL IMAGING DATE: 06/04/2023 INDICATION: Abdominal or pelvic pain COMPARISON: None. TECHNIQUE: CT scan of the abdomen and pelvis was performed followinginjection of IV contrast. Multiplanar reformats were obtained. Dosereduction techniques were used. CONTRAST: Omnipaque [id number] FINDINGS: LOWER CHEST: Minimal bibasilar atelectasis. HEPATOBILIARY: Liver and gallbladder within normal limits. PANCREAS: Normal. SPLEEN: Normal. ADRENAL GLANDS: Normal. KIDNEYS/BLADDER: Bilateral renal cysts are noted which are benign andneeds no further follow-up. Kidneys are otherwise unremarkable with noevidence of hydronephrosis. BOWEL: No obstruction or inflammatory change. Gastrostomy tube is noted. LYMPH NODES: Normal. VASCULATURE: Unremarkable. PELVIC ORGANS: Bladder within normal limits. Fibroids are noted within theuterus. MUSCULOSKELETAL: Total left hip replacement with no evidence of hardwarecomplication. Degenerative changes of the spine. IMPRESSION: 1. No acute findings in the abdomen and pelvis. Lynne Hurt MD CT * TYPE AND SCREEN ONLY (06/04/2023 10:43 AM MATERIALS DEVELOPMENT ENGINEER) ABORH O Rh Positive 06/04/2023 11:49 AM MATERIALS DEVELOPMENT ENGINEER [facility] BLOOD BANK ANTIBODY SCREEN Negative Negative 06/04/2023 11:49 AM MATERIALS DEVELOPMENT ENGINEER [facility] BLOOD BANK SPECIMEN EXPIRATION DATE/TIME 06/07/23 23:59 06/04/2023 11:49 AM MATERIALS DEVELOPMENT ENGINEER [facility] BLOOD BANK Blood BLOOD SPECIMEN / Unknown Non-Lab Venipuncture / Unknown 06/04/2023 10:43 AM MATERIALS DEVELOPMENT ENGINEER 06/04/2023 10:55 AM MATERIALS DEVELOPMENT ENGINEER Lynne Hurt MD BLOOD BANK [facility] BLOOD BANK [address] [place] [address] * EXTRA TUBE LAVENDER (06/04/2023 10:15 AM MATERIALS DEVELOPMENT ENGINEER) Blood BLOOD SPECIMEN / Unknown Venipuncture / Unknown 06/04/2023 10:15 AM MATERIALS DEVELOPMENT ENGINEER 06/04/2023 11:56 AM MATERIALS DEVELOPMENT ENGINEER Laboratory LABORATORY [facility] [address] [place] [address] [id number] [address] [place] [address] * SCAN-BONE DENSITOMETRY DEXA (12/02/2018 12:00 AM CDT) Anatomical Region Laterality Modality Other Scanner OTHER from Last 3 Months or Most Recently Relevant to Health Maintenance Advance Directives Documents on File Type Date Recorded Patient Director Of Acquisitions Expl anation POLST 12/01/2021 * Full Code (Latest Code Status on File) Date Activated Date Inactivated Comments 07/01/2023 3:59 PM 07/09/2023 3:26 PM Question Answer Comments Code Status Discussion: Reviewed Preferences * Full Code Date Activated Date Inactivated Comments 06/25/2023 9:33 PM 07/01/2023 3:59 PM Question Answer Comments Code Status Discussion: Unable to Assess Preferences, Provider to review later * Full Code Date Activated Date Inactivated Comments 06/04/2023 2:53 PM 06/12/2023 2:33 PM Question Answer Comments Code Status Discussion: Reviewed Preferences * Full Code Date Activated Date Inactivated Comments 11/12/2021 5:12 PM 11/30/2021 2:19 PM Question Answer Comments Code Status Discussion: Other * Full Code Date Activated Date Inactivated Comments 12/05/2019 12:57 AM 12/08/2019 7:43 PM Question Answer Comments Code Status Discussion: Discussed Care Teams Unit Manager Relationship Specialty Start Date End Date Erickson Vinson MD [address] [place] [address] PCP - General Family Practice 02/01/23
--- OUTSIDE RECORDS SUMMARY | 2023-07-19 12:52 | XMS_ITS | Continuity of Care Document ---
Author Name Unknown Organization [facility] Address [address] [address] [place] [address] Phone Care Team Providers Care Manager Agency Name Role Phone Michael Park MD Unavailable [...] Diagnoses Date Provider Providers Copied on Encounter [facility], [address] [address], [place], [place], [id number], [place] tel:[phone] [facility] No Information 4 Xavier Rodriguez. [address], [id number], [place]. tel:[phone] Init Hosp-da E&m Mod Severity [facility], [address] [address], [place], [place], [id number], [place] tel:[phone] [facility] No Information 4 [place]. [address], [id number], [place]. tel:[phone] Referring Provider: Erickson Godwin, [address], [place], [address]. tel:[phone] [facility], [address] [address], [place], [id number], [place] tel:[phone] [facility] Zaira s tear 4 Xavier Rodriguez. [address] [facility], [place] [address], [place], [place], [id number], [place]. tel:[phone] Init Hosp-da E&m Mod Severity [facility], [address] [address], [place], [id number], [place] tel:[phone] [facility] No Information 4 Xavier Rodriguez. [address] [place] [address], [id number], [place]. tel:[phone] Referring Provider: Erickson Vinson MD F, [address] [place] [address], [place], [address]. tel:[phone] Family History Family Member Type Diagnosis Age At Onset No Information Payers Payer name Insurance type Covered republican ID Authoriza tion(s) No Information Social History [...]
--- OUTSIDE RECORDS SUMMARY | 2023-07-19 12:52 | XMS_ITS | Clinical Summary ---
Author Name Unknown Organization [facility] Address [address] [place] [address] Care Team Providers Care Developing Machine Operator Name Role Phone Unavailable Primary Care Provider Unavailabl e Source Comments Patient records contain information from all sites at [facility]. For routine questions regarding patient records, call [phone] during business hours, M-F 8:00 AM - 5:00 PM Central Time. Record requests for emergency care only can be directed to [phone] at any time.[facility] Allergies Active Allergy Reactions Criticality Noted Date Comments Simvastatin Other (see comments) 11/29/2017 Medications Medication Sig Dispensed Refills Start Date End Date Status omeprazole (PriLOSEC) [address] capsule Take 20 mg by mouth daily with lunch. 0 Active Dialyvite 100-1 mg tablet Take 1 tablet by mouth daily. 0 09/29/2021 Active oxyCODONE (ROXICODONE) 5 mg immediate release tablet Take 5 mg by mouth every 4 (four) hours. 0 Active mirtazapine (REMERON) 15 mg tablet Take 15 mg by mouth at bedtime. 0 06/02/2022 Active Eliquis 2.5 mg tablet Take 2.5 mg by mouth 2 (two) times a day. 0 06/02/2022 Active nystatin (NYSTOP) 100,000 unit/gram powder Apply 1 application topically 2 (two) times a day. Abdominal folds 0 04/28/2022 Active acetaminophen (TYLENOL) 325 mg tablet Take 650 mg by mouth every 8 (eight) hours as needed for pain. 0 Active amoxicillin (AMOXIL) 500 mg capsule Take 1,000 mg by mouth as directed. Take 2 tablets by mouth 30-60 min prior to any dental procedure. 0 05/02/2022 Active sennosides (senna) 8.6 mg tablet Take 8.6 mg by mouth 2 (two) times a day. 0 Active oxyCODONE (ROXICODONE) 5 mg immediate release tablet Take 5 mg by mouth 2 (two) times a day as needed for moderate pain or score 4-6 of 10 or severe pain or score 7-10 of 10. 0 Active midodrine (PROAMATINE) 10 mg tablet Take 1 tablet (10 mg total) by mouth as needed (As needed before dialysis for SBP less than 120). 0 06/19/2022 Active atorvastatin (LIPITOR) 20 mg tablet Take 1 tablet (20 mg total) by mouth at bedtime. 0 06/19/2022 Active magnesium oxide (MAG-OX) 400 mg (241.3 mg magnesium) tablet Take 1 tablet (400 mg total) by mouth 2 (two) times a day before breakfast and dinner. 0 06/19/[address] Active [address] tablet Take 1 tablet (81 mg total) by mouth daily. 0 06/19/2022 Active ondansetron ODT (ZOFRAN-ODT) 4 mg disintegrating tablet Dissolve 1 tablet (4 mg total) in the mouth every 8 (eight) hours as needed for nausea or vomiting. 20 tablet 0 06/19/2022 Active metoprolol tartrate (LOPRESSOR) 25 mg tablet Take 0.5 tablets (12.5 mg total) by mouth as directed. Take daily after dialysis on -- (dialysis days) and BID non-dialysis days 150 tablet 3 11/29/2022 4 Active Active Problems Problem Noted Date Diagnosed Date Unspecified Open Wound Left Buttock Initial 06/09 Cachexia 07/07/2022 Overweight Body Mass Index 25-29.9 Adult 023 Nephrosclerosis Vascular 06/14/2022 Non-ST Elevation Myocardial Infarction 3 Postprocedural Hematoma Of S kin And Subcutaneous Tissue Following Other Procedure 06/14/2022 Thrombocytopenia Secondary 06/14/2022 Hypomagnesemia 06/14/2022 Hypophosphatemia 06/14/2022 Anemia Posthemorrhagic Acute (Blood Loss Anemia) 06/12/2022 Anxiety 2022 Atrial Fibrillation Paroxysmal 2022 Abnormal Electrocardiogram 06/07/2022 Methicillin Susceptible Staphylococcal Aureus Debility 06/06/[address] 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 05/19/2022 Overview: Added automatically from request for surgery [id number] Hyperparathyroidism Renal Secondary 01/17/2021 Urinary Tract Infection Site Not Specified 06/09 Apnea Sleep Obstructive 04/28/2020 Chronic Kidney Disease Stage 5 Glomerular Filtration Rate Less Than 15 01/07/2020 Hypertension And Chronic Kidney Disease Stage 5 01/07/2020 Chronic Right Heart Failure 01/07/2020 Anemia Of Chronic Renal Disease 01/07/2020 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 from Last 3 Months Social History Tobacco Use Types Packs/Day Years Used Date Smoking Tobacco: Unknown Tobacco Cessation:Counseling Given: Not Answered Nutrition Answer Date Recorded Nutrition: EVOO Fat Source Unknown 06/03 Nutrition: Servings of Fruits/Vegetables per Day Not on file 06/03/2020 Dental Answer Date Recorded Dental: Regular Dentist Unknown 06/03/19 21 Sex and Gender Information Value Date Recorded Sex Assigned at Not on file Gender Identity Not on file Sexual Orientation Not on file Last Filed Vital Signs Vital Sign Reading Time Taken Comments Blood Pressure 181/95 02/02/2023 3:42 PM CDT Pulse 81 02/02/2023 3:42 PM CDT Temperature 35.9 ??C (96.6 ??F) 02/02/2023 3:42 PM CD T Respiratory Rate 14 02/02/2023 12:1 2 PM CDT Oxygen Saturation 100% 02/02/2023 10: 45 AM CDT Inhaled Oxygen Concentration - - Weight 66.1 kg (145 lb 11.6 oz) 03/11/2 023 12:20 PM SOLIDWORKS MECHANICAL DESIGNER Height 165.1 cm (5' 5) 2022 12:3 0 PM SOLIDWORKS MECHANICAL DESIGNER Body Mass Index 24.25 2022 12:30 PM SOLIDWORKS MECHANICAL DESIGNER Plan of Treatment Health Maintenance Due Date Last Done Comments Office Visit for Blood Press ure Check / Re-check 1945 Hepatitis B Vaccines (1 of 3 - Risk Dialysis 4-dose series) 1963 Zoster Vaccines (1 of 2) 11/17/2015 09/22/2015 Influenza Vaccine (#1) 2023 , 01/12/2021, 01/20/2020, Additional history exists Depression Screening (Annual PHQ-2) 04/09/2023 Fall Risk Screen (Annual) 04/09/2023 Creatinine Level (Kidney Fun ction Test) 07/06/2024 07/07/2023, 07/06/2023, 07/05/2023, Additional history exists Sodium Level 07/06/2024 07/07/2023, 06/08, 07/05/2023, Additional history exists Potassium Level 07/07/2024 07/08/2023, 06/09, 07/06/2023, Additional history exists DTaP,Tdap,and Td Vaccines (2 - Td or Tdap) 11/14/2027 11/13/2017 Pneumococcal vaccine (65+ years) Completed 08/19/19 16, 01/20/2010 COVID-19 Vaccine Completed 01/30/2023, 01/2022, 01/20/2021, Additional history exists Medical Devices Implanted Type Area Picker Feeder Device Identifier Shelf Expiration Date Model / Serial / Lot [facility] Ti - [id number] Implanted:Qty : 1 on 06/06/2022 by Garfield Pavon M.D. at [facility] Hardware e.g. pins/screws/ rods Left: Arm Ethicon [id number] / / Clp Hrzn Ti 6 Dave Bordenu - [id number] Implanted:Qty : 1 on 06/06/2022 by Garfield Pavon M.D. at [facility] Hardware e.g. pins/screws/ rods Left: Arm [employer] [id number] / / Clp [facility] Ti Sm - [id number] Implanted:Qty : 1 on 06/11/2022 by Grafield Pavon M.D. at [facility] Hardware e.g. pins/screws/ rods Ethicon [id number] 02/06/2027 LT100 / / [id number] Clp Hrzn Ti 6 Clp Md Anthony - [id number] Implanted:Qty : 1 on 06/11/2022 by Garfield Pavon M.D. at [facility] Hardware e.g. pins/screws/ rods [employer] [id number] 11/28/2026 [id number] / / [id number] Clp Hrzn Ti 6 Clp Md Anthony - [id number] Implanted:Qty : 1 on 06/12/2022 by Garfield Pavon M.D. at [facility] Hardware e.g. pins/screws/ rods [employer] [id number] 11/28/2026 [id number] / / [id number] Clp Lgc Lgt Ti Sm - [id number] Implanted:Qty : 1 on 06/12/2022 by Garfield Pavon M.D. at [facility] Hardware e.g. pins/screws/ rods Ethicon [id number] 02/06/2027 LT100 / / [id number] [facility] Vs 0.88 - [id number] Implanted:Qty : 1 on 06/12/2022 by Garfield Pavon M.D. at [facility] Mesh or Patch Synovis 03/15/2023 [id number] / / [id number] Explanted Type Area Picker Feeder Device Identifier Shelf Expiration Date Model / Serial / Lot [facility] 4-7x45 - [id number] - [id number] Implanted:Qty : 1 on 06/06/2022 by Garfield Pavon M.D. at [facility] Explanted:Qty : 1 on 06/12/2022 by Alejandro Keller M.BGatitoB.SGatito at [facility] Vascular Graft Left: Arterial [place] 11/01/2025 [id number] / [id number] / Description:Left upper extre mity graft Advance Directives For more information, please contact: [phone] * Full Code (Latest Code Status on File) Date Activated Date Inactivated Comments 06/11/2022 10:50 PM 06/19/2022 3:18 PM Question Answer Comments Full Code: Discussed * Full Code Date Activated Date Inactivated Comments 06/06/2022 6:42 PM 06/11/2022 10:50 PM Question Answer Comments Full Code: Discussed * Full Code Date Activated Date Inactivated Comments 06/06/2022 11:08 AM 06/06/2022 6:42 PM Question Answer Comments Full Code: Discussed
--- OUTSIDE RECORDS SUMMARY | 2023-07-19 12:52 | XMS_ITS | Clinical Summary ---
Author Name Unknown Organization [facility] Address [address] [place] [id number] Phone Care Team Providers Care Senior Client Advisor Name Role Phone Eusebia Whitaker MD Primary Care Provider [phone] Allergies Active Allergy Reactions Criticality Noted Date Comments Simvastatin Dizziness 11/29/2017 Medications Medication Sig Dispensed Refills Start Date End Date Status Coenzyme Q10 (COQ10) 50 MG capsule Take 1 capsule daily 0 02/05/2019 Active acetaminophen (TYLENOL 8 HOUR) 650 MG 8 hr tablet Take 1 tab daily as needed 0 02/07/2019 Active oxybutynin (DITROPAN) 5 MG tablet Take 1 tab by mouth 2 times daily 0 02/05/2019 Active Multiple Vitamin tablet Take 1 tab daily 0 02/05/2019 Active Calcium Carbonate 500 MG chewable tablet Take 1 tab by mouth 2 times daily 0 02/05/2019 Active cholecalciferol (VITAMIN D-3) 50 MCG (1999 UT) capsule Take 1 tab daily 0 02/05/2019 A ctive atorvastatin (LIPITOR) 20 MG tablet Take 1 tab at bedtime 0 02/05/2019 Active furosemide (LASIX) 20 MG tablet Take 1 tablet (20 mg total) by mouth 2 (two) times a day 180 tablet 1 08/11/2019 Active carvedilol (COREG) 12.5 MG tablet Take 1 tablet (12.5 mg total) by mouth 2 (two) times a day with meals 180 tablet 1 08/11/2019 Active ferrous sulfate 325 (65 Fe) MG tablet Take 325 mg by mouth 3 (three) times a day with meals Active amLODIPine (NORVASC) 5 MG tablet Take 1 tablet (5 mg total) by mouth 2 (two) times a day 60 tablet 5 10/07/2019 Active omeprazole (PriLOSEC) [address] capsule Take 20 mg by mouth twice a day Active hydrALAZINE (APRESOLINE) 25 MG tablet TAKE 1 TABLET BY MOUTH THREE TIMES DAILY 270 tablet 1 04/30/2020 Active Active Problems Problem Noted Date Diagnosed Date Chronic kidney disease, stage 3 (moderate) 02/07 Proteinuria 02/07/2019 Anemia 02/07/2019 long-term current use of non-steroidal anti-infl ammatories 02/07/2019 Essential (primary) hypertension 02/07/2019 Hyperlipidemia 02/07/2019 Family History Medical History Relation Comments Kidney disease Neg Hx Social History Tobacco Use Types Packs/Day Years Used Date Smoking Tobacco: Never Smokeless Tobacco: Never Alcohol Use Standard Drinks/Week Comments Yes 0 (1 standard drink = 0.6 oz pure alcohol) Alcoholic Drinks/day: 1 -2 glass of wine per week Sex and Gender Information Value Date Recorded Sex Assigned at Not on file Gender Identity Not on file Sexual Orientation Not on file Last Filed Vital Signs Vital Sign Reading Time Taken Comments Blood Pressure 176/74 11/28/2019 12:28 PM CDT Pulse 60 11/28/2019 12:28 PM CDT Temperature 36.8 ??C (98.2 ??F) 11/28/2019 12:28 PM C DT Respiratory Rate - - Oxygen Saturation - - Inhaled Oxygen Concentration - - Weight 84.4 kg (186 lb) 11/28/2019 12:28 PM CDT Height 157.5 cm (5' 2) 11/28/2019 12:28 PM CDT Body Mass Index 34.02 11/28/2019 12:28 PM CDT Plan of Treatment Health Maintenance Due Date Last Done Comments Pneumococcal PPSV23/PCV13 65 + Years / Low and Medium Risk (1 of 4 - PCV) 06/07/2008 Influenza Vaccine (Season Ended) 2023 Care Teams Senior Client Advisor Relationship Specialty Start Date End Date Eusebia Whitaker MD [address] [place] [address] PCP - General Family Medicine 11/24/19
--- OUTSIDE RECORDS SUMMARY | 2023-07-19 12:53 | XMS_ITS | Encounter Summary ---
Author Name Unknown Organization [facility] Address [address] [place] [address] Care Team Providers Care Willow Machine Tender Name Role Phone Unavailable Primary Care Provider Unavailabl e Encounter Details Date Type Department Care Team (Late st Contact Info) Description 04/20/2023 Orders Only Division of Nephrology and Hypertension, [facility], in [place], [place] [address] [place] [phone] Jenna Neri, GLADYS, C.N.P., M.S.N. [address] [place] [address] Social History Tobacco Use Types Packs/Day Years Used Date Smoking Tobacco: Unknown Nutrition Answer Date Recorded Nutrition: EVOO Fat Source Unknown 06/03 Nutrition: Servings of Fruits/Vegetables per Day Not on file 06/03/2020 Dental Answer Date Recorded Dental: Regular Dentist Unknown 06/03/19 21 Sex and Gender Information Value Date Recorded Sex Assigned at Not on file Gender Identity Not on file Sexual Orientation Not on file documented as of this encounter Plan of Treatment Not on file documented as of this encounter Visit Diagnoses Not on filedocumented in this encounter
--- OUTSIDE RECORDS SUMMARY | 2023-07-19 12:53 | XMS_ITS | Clinical Summary ---
Author Name Unknown Organization [facility] Address [address] [place] [address] Care Team Providers Care Office Assistant Name Role Phone Eusebia Whitaker Ann Primary Care Provider [phone] Allergies No known active allergies Medications Medication Sig Dispensed Refills Start Date End Date Status carvedilol (COREG) 12.5 MG tablet Take 12.5 mg by mouth 2 times daily (with meals) Active furosemide (LASIX) 20 MG tablet Take 20 mg by mouth 2 times daily Active Multiple Vitamins-Minerals (MULTIVITAMIN ADULT PO) Take 1 tablet by mouth daily Active co-enzyme Q-10 50 MG CAPS Take 50 mg by mouth Active omeprazole (PRILOSEC) [address] capsule Take 20 mg by mouth daily Active acetaminophen (TYLENOL) 500 MG tablet Take 500-1,000 mg by mouth every 6 hours as needed for mild pain Active Cholecalciferol (VITAMIN D3) 50 MCG (2000 UT) CAPS Take 50 mcg by mouth daily Active Social History Tobacco Use Types Packs/Day Years Used Date Smoking Tobacco: Never Assessed Adolescent Education Answer Date Record ed Getting School Help Needed Not on file 12/30 Sex and Gender Information Value Date Recorded Sex Assigned at Not on file Gender Identity Not on file Sexual Orientation Not on file Last Filed Vital Signs Vital Sign Reading Time Taken Comments Blood Pressure 219/86 10/01/2019 9:39 AM CDT Pulse 56 10/01/2019 9:39 AM CDT Temperature 36.6 ??C (97.9 ??F) 10/01/2019 8:16 AM CD T Respiratory Rate 18 10/01/2019 9:39 AM CDT Oxygen Saturation 97% 10/01/2019 8:16 AM CDT Inhaled Oxygen Concentration - - Weight - - Height 160 cm (5' 3) 10/01/2019 8:16 AM CDT Body Mass Index - - Plan of Treatment Health Maintenance Due Date Last Done Comments ADVANCE CARE PLANNING 1945 ANNUAL REVIEW OF HM ORDERS 1945 DEXA 1945 DTAP/TDAP/TD IMMUNIZATION (1 - Tdap) 06/07/1968 LIPID 1983 RSV VACCINE ( & 60+) (1 - 1-dose 60+ series) 2003 FALL RISK ASSESSMENT 06/07/2008 MEDICARE ANNUAL WELLNESS VISIT 06/07/2008 ZOSTER IMMUNIZATION (2 of 3) 11/17/2015 09/22/2015 GLUCOSE 09/30/2022 10/01/2019 COVID-19 Vaccine (1 - 2022- season) 2022 INFLUENZA VACCINE (#1) 2022 9, 02/09/2012, 01/16/2011, Additional history exists PHQ-2 (once per calendar year) 2023 Pneumococcal Vaccine: 65+ Years Completed 08/19/2015, 01/20/2010 HPV IMMUNIZATION Aged Out No longer e ligible based on patient's age to complete this topic IPV IMMUNIZATION Aged Out No longer e ligible based on patient's age to complete this topic MENINGITIS IMMUNIZATION Aged Out No l onger eligible based on patient's age to complete this topic RSV MONOCLONAL ANTIBODY Aged Out No l onger eligible based on patient's age to complete this topic Procedures Procedure Name Priority Date/Time Associated Diagnosis Comments BASIC METABOLIC PANEL STAT 10/01/2019 9:19 AM CDT from Last 3 Months or Most Recently Relevant to Health Maintenance Results * (ABNORMAL) Basic metabolic panel (10/01/2019 9:19 AM CDT) Sodium 138 133 - 144 mmol/L 10/01/2019 9:41 AM CDT [facility] Potassium 3.5 3.4 - 5.3 mmol/L 10/01/2019 9:41 AM CDT [facility] Chloride 106 94 - 109 mmol/L 10/01/2019 9:41 AM CDT [facility] Carbon Dioxide 26 20 - 32 mmol/L 10/01/2019 9:51 AM CDT [facility] Anion Gap 6 3 - 14 mmol/L 10/01/2019 9:51 AM T [facility] Glucose 102(H) 70 - 99 mg/dL 10/01/2019 9:51 AM T [facility] Urea Nitrogen 35(H) 7 - 30 mg/dL 10/01/2019 9:51 AM T [facility] Creatinine 2.79(H) 0.52 - 1.04 mg/dL 10/01/2019 9:51 AM T [facility] GFR Estimate 16(L) >60 mL/min/{1 .73_m2} 10/01/2019 9:51 AM T [facility] Comment: Non GFR Calc Starting 03/26/2018, serum creatinine based estimated GFR (eGFR) will be calculated using the Chronic Kidney Disease Epidemiology Collaboration (CKD-EPI) equation. GFR Estimate If Black 18(L) >60 mL/min/{1 .73_m2} 10/01/2019 9:51 AM T [facility] Comment: GFR Calc Starting 03/26/2018, serum creatinine based estimated GFR (eGFR) will be calculated using the Chronic Kidney Disease Epidemiology Collaboration (CKD-EPI) equation. Calcium 8.9 8.5 - 10.1 mg/dL 10/01/2019 9:51 AM T [facility] Blood specimen (specimen) 10/01/2019 9:19 AM CDT 10/01/2019 9:20 AM CDT Adrian Kern MD LAB - BLOOD ORDERABL ES [facility] [address] [id number], [facility] [phone] from Last 3 Months or Most Recently Relevant to Health Maintenance Care Teams Office Assistant Relationship Specialty Start Date End Date Eusebia Whitaker [facility] [address] [place] [address] PCP - General Family Practice 09/25/19
--- OUTSIDE RECORDS SUMMARY | 2023-07-19 12:53 | XMS_ITS | Referral Summary ---
Author Name Unknown Organization [facility] Address [address] [place] [address] Care Team Providers Care Hr Advisor Name Role Phone Eusebia Whitaker Ann Primary Care Provider Allergies No known active [...] Mass Index - - Plan of Treatment Not on file Procedures Procedure Name Priority Date/Time Associated Diagnosis Comments BASIC METABOLIC PANEL STAT 10/01/2019 9:19 AM CDT from Last 3 Months or Most Recently Relevant to Health Maintenance Results * (ABNORMAL) Basic metabolic panel (10/01/2019 9:19 AM CDT) Sodium 138 133 - 144 mmol/L 10/01/2019 9:41 AM [facility] Potassium 3.5 3.4 - 5.3 mmol/L 10/01/2019 9:41 AM [facility] Chloride 106 94 - 109 mmol/L 10/01/2019 9:41 AM [facility] Carbon Dioxide 26 20 - 32 mmol/L 10/01/2019 9:51 AM [facility] Anion Gap 6 3 - 14 mmol/L 10/01/2019 9:51 AM [facility] Glucose 102(H) 70 - 99 mg/dL 10/01/2019 9:51 AM [facility] Urea Nitrogen 35(H) 7 - 30 mg/dL 10/01/2019 9:51 AM [facility] Creatinine 2.79(H) 0.52 - 1.04 mg/dL 10/01/2019 9:51 AM [facility] GFR Estimate 16(L) >60 mL/min/{1 .73_m2} 10/01/2019 9:51 AM [facility] Comment: Non GFR Calc Starting 03/26/2018, serum creatinine based estimated GFR (eGFR) will be calculated using the Chronic Kidney Disease Epidemiology Collaboration (CKD-EPI) equation. GFR Estimate If Black 18(L) >60 mL/min/{1 .73_m2} 10/01/2019 9:51 AM [facility] Comment: GFR Calc Starting 03/26/2018, serum creatinine based estimated GFR (eGFR) will be calculated using the Chronic Kidney Disease Epidemiology Collaboration (CKD-EPI) equation. Calcium 8.9 8.5 - 10.1 mg/dL 10/01/2019 9:[address] [facility] Blood specimen (specimen) 10/01/2019 9:19 AM CDT 10/01/2019 9:20 AM CDT Adrian Kern MD LAB - BLOOD ORDERABL ES [facility] [address] [id number], [facility] [phone] from Last 3 Months or Most Recently Relevant to Health Maintenance Care Teams Hr Advisor Relationship Specialty Start Date End Date Eusebia Whitaker [facility] [address] [place] [address] PCP - General Family Practice 09/25/19
--- OUTSIDE RECORDS SUMMARY | 2023-07-19 12:53 | XMS_ITS | Referral Summary ---
Author Name Unknown Organization [facility] Address [address] [place] [address] Care Team Providers Care Printed Products Assembler Name Role Phone Unavailable Primary Care Provider Unavailabl e Source Comments Patient records contain information from all sites at [facility]. For routine questions regarding patient records, call [phone] during business hours, M-F 8:00 AM - 5:00 PM Central Time. Record requests for emergency care only can be directed to [phone] at any time.[facility] Encounters Date Type Department Care Team Description 04/20/2023 Orders Only Division of Nephrology and Hypertension, [facility], in [place], [place] [address] [place] [address] Jenna Neri, GLADYS, C.N.P., M.S.N. from Last 3 Months Allergies Active Allergy Reactions Criticality Noted Date [...] as directed. Take daily after dialysis on - (dialysis days) and BID non-dialysis days 150 tablet 3 11/29/2022 4 Active Active Problems Problem Noted Date Diagnosed Date Unspecified Open Wound Left Buttock Initial 06/09 Cachexia 07/07/2022 Overweight Body Mass Index 25-29.9 Adult 023 Nephrosclerosis Vascular 06/14/2022 Non-ST Elevation Myocardial Infarction Postprocedural Hematoma Of S kin And Subcutaneous Tissue Following Other Procedure 06/14/2022 Thrombocytopenia Secondary 06/14/2022 Hypomagnesemia 06/14/2022 Hypophosphatemia 06/14/2022 Anemia Posthemorrhagic Acute (Blood Loss Anemia) 06/12/2022 Anxiety 2022 Atrial Fibrillation Paroxysmal 2022 Abnormal Electrocardiogram 06/07/2022 Methicillin Susceptible Staphylococcal Aureus Debility 06/06/[address] 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 05/19/2022 Overview: Added automatically from request for surgery [id number] Hyperparathyroidism Renal Secondary 01/17/2021 Urinary Tract Infection [...] Resolved Date Diabetes Mellitus Type 2 01/07/2020 Social History Tobacco Use Types Packs/Day Years [...] lb 11.6 oz) 03/11/2 023 12:20 PM HOME HEALTH AIDE Height 165.1 cm (5' 5) 2022 12:3 0 PM HOME HEALTH AIDE Body Mass Index 24.25 2022 12:30 PM HOME HEALTH AIDE Plan of Treatment Not on file Medical Devices Implanted Type Area Medical Records Clerk Device Identifier Shelf Expiration Date Model / Serial / Lot Clp Lgc Lgt Ti Sm - [id number] Implanted:Qty : 1 on 06/06/2022 by Garfield Pavon M.D. at [facility] Hardware e.g. pins/screws/ rods Left: Arm Ethicon LT100 / / Clp Hrzn Ti 6 Clp Anthony - [id number] Implanted:Qty : 1 on 06/06/2022 by Garfield Pavon M.D. at [facility] Hardware e.g. pins/screws/ rods Left: Arm [employer] [id number] / / Clp Lgc Lgt Ti Sm - [id number] Implanted:Qty : 1 on 06/11/2022 by Garfield Pavon M.D. at [facility] Hardware e.g. pins/screws/ rods Ethicon [id number] 02/06/2027 LT100 / / [id number] Clp Hrzn Ti 6 Clp Anthony - [id number] Implanted:Qty : 1 on 06/11/2022 by Garfield Pavon M.D. at [facility] Hardware e.g. pins/screws/ rods [employer] [id number] 11/28/2026 [id number] / / [id number] Clp Hrzn Ti 6 Clp Anthony - [id number] Implanted:Qty : 1 on 06/12/2022 by Garfield Pavon M.D. at [facility] Hardware e.g. pins/screws/ rods [employer] [id number] 11/28/2026 [id number] / / [id number] Clp Lgc Lgt Ti Sm - [id number] Implanted:Qty : 1 on 06/12/2022 by Garfield Pavon M.D. at [facility] Hardware e.g. pins/screws/ rods Ethicon [id number] 02/06/2027 LT100 / / [id number] [facility] 0.88 - [id number] Implanted:Qty : 1 on 06/12/2022 by Garfield Pavon M.D. at [facility] Mesh or Patch [employer]is 03/15/2023 [id number] / / [id number] Explanted Type Area Medical Records Clerk Device Identifier Shelf Expiration Date Model / Serial / Lot [facility] [id number] - [id number] - [id number] Implanted:Qty : 1 on 06/06/2022 by Garfield Pavon M.D. at [facility] Explanted:Qty : 1 on 06/12/2022 by Alejandro Keller M.B.BGatitoSGatito at [facility] Vascular Graft Left: Arterial [place] 11/01/2025 [id number] / [id number] / Description:Left upper extre mity graft Advance Directives For more information, please contact: [phone] * Full Code (Latest Code Status on [...]
--- OUTSIDE RECORDS SUMMARY | 2023-07-19 12:53 | XMS_ITS ---
Author Name Unknown Organization [facility] Address [address] [place] [address] Care Team Providers Care Machine Load Clerk Name Role Phone Unavailable Primary Care Provider Unavailabl e Allergies Active Allergy Reactions Criticality Noted Date [...] as directed. 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
--- OUTSIDE RECORDS SUMMARY | 2023-07-19 12:53 | XMS_ITS ---
Author Name Unknown Organization [facility] Address [address] [place] [address] Care Team Providers Care [facility] Name Role Phone Unavailable Unavailable Unavailable Surgery Details Not on file Complications Check Surgery Details section. Procedure Estimated Blood Loss Check Surgery Details section. Procedure Findings Check Surgery Details section. Procedure Specimens Taken Check Surgery Details section.
== END 2023-07-19 12:47 | disposition home or self-care (01) ==
LOC: WOUND 12:46
PROVIDERS: PCP Family Medicine; Visit Provider Nurse Practitioner Family
DX: I73.9 Peripheral vascular disease, unspecified (principal); L97.228 Non-pressure chronic ulcer of left calf with other specified severity; Z99.3 Dependence on wheelchair
CPT/HCPCS: 11042

== ENCOUNTER 2023-08-02 10:45 | Outpatient (CLI) | payer OTHER, SELFPAY ==
--- OUTSIDE RECORDS SUMMARY | 2023-08-02 10:48 | XMS_ITS | Clinical Summary ---
Author Name Unknown Organization [employer] [facility] Address [place], [place] [address] Care Team Providers Care Supervisor Treating And Pumping Name Role Phone Erickson Vinson MD Primary [...] Patient taking differently:1 mg OralDAILY AFTERNOON, Informant: Snf CHINO, Reported on 06/25/2023 pantoprazole (PROTONIX) 40 [...] for Pain. 15 mL 07/09/19 24 Active Senna 8.6 mg tabletIndications:c onstipation Take 17.2 mg by mouth two times daily. 05/05/19 23 024 Discontinued mirtazapine (REMERON) 30 mg tabletIndications:m ravi depressive disorder Take 30 mg by mouth at bedtime. 11/18/19 23 024 Discontinued polyethylene glycoL (MIRALAX) 17 gram/scoop powderIndications:c onstipation Mix 17 g in liquid then take by mouth. Three times weekly on , , 11/29/19 23 024 Discontinued(*I P Discontinued) lidocaine 4 % creamIndications:sk in irritation,pain Apply topically to affected area(s) two times daily. Apply to left leg. 024 Discontinued polyethylene glycol (Miralax) 17 g per packet packet Mix 1 Packet in liquid then take by mouth once daily if needed for Constipation. Discontinued amLODIPine (NORVASC) 2.5 mg tabletIndications:H TN (hypertension) Take 1 Tablet (2.5 mg) by mouth once daily. 06/12/19 24 Discontinued oxyCODONE (ROXICODONE) 5 mg immediate release tabletIndications:M ultiple wounds of skin Take 1 Tablet (5 mg) by mouth every 6 hours if needed for Pain. 10 Tablet 06/12/19 24 Discontinued doxycycline (VIBRAMYCIN) 100 mg capsule Take 100 mg by mouth two times daily. 06/22/19 Discontinued(*I P Discontinued) benzonatate (TESSALON) 100 mg capsule Take 100 mg by mouth 3 times daily if needed for Cough. 06/21/19 Discontinued(*I P Discontinued) gabapentin (NEURONTIN) 100 mg capsuleIndications: Leg pain, bilateral Take 1 Capsule (100 mg) by mouth at bedtime. 07/04/19 024 Discontinued(*I P Discontinued) oxyCODONE (ROXICODONE) 5 mg immediate release tabletIndications:M ultiple wounds of skin Take 0.5-1 Tablets (2.5-5 mg) by mouth every 6 hours if needed for Pain. 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 PAF (paroxysmal atrial [...] Description 06/27/19 12:34 PM CDT Anesthesia Event [facility] [address] [place] [address] Jd Reese, Wandy Anderson, CUPOLA MELTER HELPER Student 06/27/19 11:45 AM CDT - 06/27/19 12:45 PM CDT Surgery [facility] [address] [place] [address] Kavin Fournier MD ESOPHAGOGASTRODUODENOSCOPY 06/27/19 24 Travel 06/25/19 24 9:06 PM CDT - 07/09/19 1:00 PM CDT Hospital Encounter [facility] [address] [place] [address] Lion Granados MD Weise Lalita Cisneros MD [facility] [place] [employer] [facility] Vikram Dias MD Kohlmeyer, Lore Trent MD Leg pain, bilateral (Primary Dx); HTN (hypertension); Multiple wounds of skin; Cerebrovascular accident (CVA), unspecified mechanism (HC); Constipation, unspecified constipation type; Open wound of left lower extremity, subsequent encounter; Difficulty sleeping; Pain Discharge Disposition: [facility] 06/05/19 10:48 AM FINISHING SUPERVISOR Anesthesia Event [address] [address] Cesar Reddy MD McNeely, Melissa H, CRNA 06/05/19 10:25 AM FINISHING SUPERVISOR - 06/05/19 11:08 AM FINISHING SUPERVISOR Surgery [address] [address] Michael Ricks MD ESOPHAGOGASTRODUODENOSCOPY 06/04/19 9:10 AM FINISHING SUPERVISOR - 06/12/19 11:30 AM FINISHING SUPERVISOR Hospital Encounter [address] [address] Lynne Hurt MD [facility], Hospitalist Mallory Olvera MD Sahni, Nishant, MBBS Hasan, Syed Abutalib, MBBS Chaudhry, Saadia Zafar, MD Gastrointestinal hemorrhage, unspecified gastrointestinal hemorrhage type (Primary Dx); PAF (paroxysmal atrial fibrillation) (HC); Multiple wounds of skin; Wound of left lower extremity, subsequent encounter; HTN (hypertension) Discharge Disposition: [facility] 06/04/19 Travel 05/07/19 Lab Requisition [facility] [phone] Erickson Vinson MD from Last 3 Months Family History Medical [...] Timed 06/29/2023 12:56 PM CDT SOLUBLE TRANSFERRIN COTTON WEIGHER OPERATOR JULY 2023 4:19 AM CDT FERRITIN JULY [...] CDT CO2,TOTAL Early AM 06/12/2023 7:22 AM FINISHING SUPERVISOR WHITE BLOOD COUNT Early AM 06/12/2023 7:22 AM FINISHING SUPERVISOR HEMOGLOBIN Early AM 06/12/2023 7:22 AM FINISHING SUPERVISOR CREATININE Early AM 06/12/2023 7:22 AM FINISHING SUPERVISOR POTASSIUM Early AM 06/12/2023 7:22 AM FINISHING SUPERVISOR SODIUM Early AM 06/12/2023 7:22 AM FINISHING SUPERVISOR SCAN-CARDIAC STRIP 06/11/2023 10:34 AM FINISHING SUPERVISOR CBC W PLT NO DIFF Today 06/11/2023 8:09 AM FINISHING SUPERVISOR SCAN-CARDIAC STRIP 06/11/2023 5:34 AM FINISHING SUPERVISOR SCAN-CARDIAC STRIP 06/10/2023 10:21 PM FINISHING SUPERVISOR SCAN-CARDIAC STRIP 06/10/2023 7:37 AM FINISHING SUPERVISOR CBC WITH AUTO DIFFERENTIAL Early AM 06/09 4:44 AM FINISHING SUPERVISOR BASIC METABOLIC PANEL Early AM 06/10/2023 4:44 AM FINISHING SUPERVISOR CBC WITH AUTO DIFFERENTIAL Early AM 06/09 4:44 AM FINISHING SUPERVISOR SCAN-CARDIAC STRIP 06/10/2023 4:24 AM FINISHING SUPERVISOR SCAN-CARDIAC STRIP 06/09/2023 7:45 AM FINISHING SUPERVISOR SCAN-CARDIAC STRIP 2023 3:18 PM FINISHING SUPERVISOR HEMOGLOBIN Timed 2023 12:11 PM FINISHING SUPERVISOR SCAN-CARDIAC STRIP 2023 7:40 AM FINISHING SUPERVISOR SCAN-CARDIAC STRIP 2023 12:26 AM FINISHING SUPERVISOR HEMOGLOBIN Timed 2023 12:12 AM FINISHING SUPERVISOR SCAN-CARDIAC STRIP 06/07/2023 4:05 PM FINISHING SUPERVISOR HEMOGLOBIN Timed 06/07/2023 12:06 PM FINISHING SUPERVISOR SCAN-CARDIAC STRIP 06/07/2023 10:43 AM FINISHING SUPERVISOR BASIC METABOLIC PANEL Early AM 06/07/2023 5:02 AM FINISHING SUPERVISOR HEMOGLOBIN Timed 06/07/2023 12:47 AM FINISHING SUPERVISOR SCAN-CARDIAC STRIP 06/06/2023 7:57 PM FINISHING SUPERVISOR SCAN-CARDIAC STRIP 06/06/2023 5:10 PM FINISHING SUPERVISOR POTASSIUM Early AM 06/06/2023 8:45 AM FINISHING SUPERVISOR HEMOGLOBIN Timed 06/06/2023 8:45 AM FINISHING SUPERVISOR SCAN-CARDIAC STRIP 06/06/2023 7:41 AM FINISHING SUPERVISOR SCAN-CARDIAC STRIP 06/06/2023 4:28 AM FINISHING SUPERVISOR HEMOGLOBIN Timed 06/05/2023 9:18 PM FINISHING SUPERVISOR HEMOGLOBIN Timed 06/05/2023 4:14 PM FINISHING SUPERVISOR ESOPHAGOGASTRODUODENOSCOPY W ITH HEMOSTASIS 06/05/2023 10:43 AM FINISHING SUPERVISOR Stephani kenzie tear ESOPHAGOGASTRODUODENOSCOPY 06/05 10:43 AM FINISHING SUPERVISOR Stephani kenzie tear TRANSFUSE RBC (NURSE COMMUNICATION ORDER) STAT 06/05/2023 10:40 AM FINISHING SUPERVISOR RBC W/O TYPE & SCREEN STAT 06/05/2023 10:28 AM FINISHING SUPERVISOR RED BLOOD CELLS EA UNIT STAT 06/05/19 10:28 AM FINISHING SUPERVISOR ENDOSCOPY 06/05/2023 10:24 AM FINISHING SUPERVISOR SCAN-CARDIAC STRIP 06/05/2023 7:49 AM FINISHING SUPERVISOR BASIC METABOLIC PANEL Early AM 06/05/2023 7:06 AM FINISHING SUPERVISOR CBC W PLT NO DIFF Early AM 06/05/2023 7:06 AM FINISHING SUPERVISOR HEMOGLOBIN Timed 06/05/2023 7:06 AM FINISHING SUPERVISOR TRANSFUSE RBC (NURSE COMMUNICATION ORDER) STAT 06/05/2023 2:37 AM FINISHING SUPERVISOR RBC W/O TYPE & SCREEN STAT 06/05/2023 1:36 AM FINISHING SUPERVISOR RED BLOOD CELLS EA UNIT STAT 06/05/19 24 1:36 AM FINISHING SUPERVISOR HEMOGLOBIN Timed 06/05/2023 12:15 AM FINISHING SUPERVISOR XR CHEST 1 VIEW PORTABLE STAT 024 11:37 PM FINISHING SUPERVISOR SCAN-CARDIAC STRIP 06/04/2023 5:13 PM FINISHING SUPERVISOR HEMOGLOBIN Timed 06/04/2023 4:[address] ABDOMEN PELVIS W STAT 06/04/2023 2:14 PM FINISHING SUPERVISOR HBSAG (HBS) JULY 06/04/2023 11:23 AM FINISHING SUPERVISOR POTASSIUM STAT 06/04/2023 11:23 AM FINISHING SUPERVISOR EKG 12 LEAD STAT 06/04/2023 10:45 AM FINISHING SUPERVISOR TYPE & SCREEN STAT 06/04/2023 10:43 AM FINISHING SUPERVISOR BLOOD CULTURE STAT 06/04/2023 10:43 AM FINISHING SUPERVISOR BLOOD CULTURE STAT 06/04/2023 10:43 AM FINISHING SUPERVISOR LACTATE VENOUS STAT 06/04/2023 10:43 AM FINISHING SUPERVISOR EXTRA TUBE LAVENDER Today 06/04/2023 10:15 AM FINISHING SUPERVISOR BASIC METABOLIC PANEL STAT 06/04/2023 10:12 AM FINISHING SUPERVISOR PROTIME-INR STAT 06/04/2023 10:12 AM FINISHING SUPERVISOR CBC W PLT NO DIFF STAT 06/04/2023 10:12 AM FINISHING SUPERVISOR SCAN-BONE DENSITOMETRY DEXA 11/08 12:00 AM CDT from Last 3 Months or Most Recently Relevant to Health Maintenance Results * (ABNORMAL) GLUCOSE METER (07/09/2023 6:23 AM CDT) Only the most recent of51 resultswithin the time period is included. GLUCOSE METER 143(H) 65 - 100 mg/dL 07/09/2023 6:24 AM CDT [facility] Blood BLOOD SPECIMEN / Unknown 07/09/2023 6:23 AM CDT 07/09/2023 6:24 AM CDT Vikram Dias MD CHEMISTRY Performing Organization Address City/[facility]/ZIP Co de Phone Number [facility] [address] [address], [place] * Potassium AM (07/08/2023 12:15 PM CDT) Only the most recent of6 resultswithin the time period is included. POTASSIUM 4.2 3.5 - 5.1 mmol/L 07/08/2023 1:32 PM CDT [facility] Blood BLOOD SPECIMEN / Unknown Venipuncture / Unknown 07/08/2023 12:15 PM CDT 07/08/2023 12:23 PM CDT Lore Noble MD CHEMISTRY Performing Organization Address [facility] [place]/[facility] Co de Phone Number [facility] [address] [phone], [place] * WBC AM (07/08/2023 12:14 PM CDT) Only the most recent of5 resultswithin the time period is included. WHITE BLOOD COUNT 6.5 4.5 - 11.0 thou/cu mm 07/08/2023 12:47 PM CDT [facility] NRBC 0.0 % 07/08/2023 12:47 PM CDT [facility] ABS NRBC 0.0 thou /cu mm 07/08/2023 12:47 PM CDT [facility] Blood BLOOD SPECIMEN / Unknown Venipuncture / Unknown 07/08/2023 12:14 PM CDT 07/08/2023 12:23 PM CDT Lore Noble MD HEMATOLOGY Performing Organization Address City/[facility]/ZIP Co de Phone Number [facility] [address] [place] [phone], [place] * EXTRA TUBE GOLD/SST (07/07/2023 12:12 PM CDT) Blood BLOOD SPECIMEN / Unknown Non-Lab Venipuncture / Unknown 07/07/2023 12:12 PM CDT 07/07/2023 12:18 PM CDT Lore Noble MD [facility]ORY [facility] [address] [place] [address], * (ABNORMAL) RENAL FUNCTION PANEL (07/07/2023 12:12 PM CDT) Only the most recent of5 resultswithin the time period is included. SODIUM 135(L) 136 - 145 mmol/L 07/07/2023 12:45 PM CDT [facility] POTASSIUM 4.2 3.5 - 5.1 mmol/L 07/07/2023 12:45 PM CDT [facility] CHLORIDE 96(L) 98 - 107 mmol/L 07/07/2023 12:45 PM CDT [facility] CO2,TOTAL 25 22 - 29 mmol/L 07/07/2023 12:45 PM CDT [facility] ANION GAP 14 5 - 18 07/07/2023 12:45 PM CDT [facility] GLUCOSE 104(H) 70 - 99 mg/dL 07/07/2023 12:45 PM CDT [facility] CALCIUM 9.7 8.8 - 10.2 mg/dL 07/07/2023 12:45 PM CDT [facility] BUN 51(H) 8 - 23 mg/dL 07/07/2023 12:45 PM CDT [facility] CREATININE 2.63(H) 0.50 - 0.90 mg/dL 07/07/2023 12:45 PM CDT [facility] BUN/CREAT RATIO 19 10 - 20 12:45 PM CDT [facility] eGFR 18(L) >90 mL/min/1.7 3m2 07/07/2023 12:45 PM CDT [facility] Comment:As of 2021, eG FR is calculated by the CKD-EPI creatinine equation without race adjustment. ??eGFR can be influenced by muscle mass, exercise, and diet. ??The reported eGFR is an estimation only and is only applicable if the renal function is stable. PHOSPHORUS 3.2 2.5 - 4.5 mg/dL 07/07/2023 12:45 PM CDT [facility] ALBUMIN 3.6(L) 4.0 - 4.9 g/dL 07/07/2023 12:45 PM CDT [facility] Blood BLOOD SPECIMEN / Unknown Venipuncture / Unknown 07/07/2023 12:12 PM CDT 07/07/2023 12:17 PM CDT Lore Noble MD CHEMISTRY Performing Organization Address [facility] [place]/[facility] Co de Phone Number [facility] [address] [address], [place] * (ABNORMAL) HEMOGLOBIN (07/06/2023 3:52 PM CDT) Only the most recent of21 resultswithin the time period is included. HEMOGLOBIN 8.6(L) 12.0 - 16.0 g/dL 07/06/2023 4:16 PM CDT [facility] MCV 94 80 - 100 fL 07/06/2023 4:16 PM CDT [facility] Blood BLOOD SPECIMEN / Unknown Butterfly / Unknown 07/06/2023 3:52 PM CDT 07/06/2023 3:58 PM CDT Harjit Edwards MD HEMATOLOGY Performing Organization Address [facility] [place]/[facility]/ZIP Co de Phone Number [facility] [address] [place] [phone], [place] * CT head without contrast (07/05/2023 2:51 [...] resultswithin the time period is included. Pathologist [facility] CORTISOL,TOTAL 8.6 ug/dL 07/05/2023 2:43 PM CDT [facility] Blood BLOOD SPECIMEN / Unknown Butterfly / Unknown 07/05/2023 1:30 PM CDT 07/05/2023 1:42 PM CDT Narrative [facility] - 07/05/2023 2:43 PM CDT Cortisol ?Morning Hours ?6:00 ??AM - 10:00 AM ?(4.8-19.5 ug/dL) Cortisol ?Afternoon Hours ??4:00 ??PM - ??8:00 PM ?(2.5-11.9 ug/dL) ? Biotin supplements may cause clinically significant interference for this test assay. ??If interference is suspected, it is strongly recommended that biotin is discontinued for at least one week prior to retesting. Lore Noble MD CHEMISTRY [facility] [address] [place] [address], * (ABNORMAL) BLOOD GAS,VENOUS (07/05/2023 1:30 PM CDT) Only the most recent of2 resultswithin the time period is included. Pathologist [facility] PH, VENOUS 7.38 7.32 - 7.43 07/05/2023 1:47 PM CDT [facility] PCO2, VENOUS 50 41 - 51 mmHg 07/05/2023 1:47 PM CDT [facility] PO2, VENOUS 22(L) 35 - 40 mmHg 07/05/2023 1:47 PM CDT [facility] HCO3,VENOUS 30(H) 22 - 29 mmol/L 07/05/2023 1:47 PM CDT [facility] BASE EXCESS, VENOUS, POCT 3.4(H) -2.0 - 3.0 07/05/2023 1:47 PM CDT [facility] O2 SATURATION, VENOUS 48(L) 70 - 75 % 07/05/2023 1:47 PM CDT [facility] PATIENT TEMPERATURE 37.0 Degrees C 07/05/2023 1:47 PM CDT [facility] Blood BLOOD SPECIMEN / Unknown Butterfly / Unknown 07/05/2023 1:30 PM CDT 07/05/2023 1:42 PM CDT Lore Noble MD CHEMISTRY Performing Organization Address City/[facility]/ZIP Co de Phone Number [facility] [address] [place] [address], [place] * (ABNORMAL) T3,TOTAL (07/05/2023 1:30 PM CDT) T3,TOTAL 63(L) 85 - 202 ng/dL 07/05/2023 3:16 PM CDT [facility] Blood BLOOD SPECIMEN / Unknown Butterfly / Unknown 07/05/2023 1:30 PM CDT 07/05/2023 1:42 PM CDT Lore Noble MD CHEMISTRY [facility] [address] [place] [phone], [place] * T4, free AM (07/05/2023 1:30 PM CDT) Only the most recent of2 resultswithin the time period is included. T4,FREE 1.28 0.93 - 1.70 ng/dL 07/05/2023 2:43 PM CDT [facility] Blood BLOOD SPECIMEN / Unknown Butterfly / Unknown 07/05/2023 1:30 PM CDT 07/05/2023 1:42 PM CDT Lore Noble MD CHEMISTRY Performing Organization Address City/[facility] Co de Phone Number [facility] [address] [address], [place] * (ABNORMAL) Vitamin B12 level AM (07/05/2023 1:30 PM CDT) Pathologist [facility] VITAMIN B12 1,627(H) 232 - 1,245 pg/mL 07/05/2023 2:44 PM CDT [facility] Blood BLOOD SPECIMEN / Unknown Butterfly / Unknown 07/05/2023 1:30 PM CDT 07/05/2023 1:42 PM CDT Narrative [facility] - 07/05/2023 2:44 PM CDT Biotin supplements may cause clinically significant interference for this test assay. ??If interference is suspected, it is strongly recommended that biotin is discontinued for at least one week prior to retesting. Lore Noble MD CHEMISTRY Performing Organization Address City/[facility] Co de Phone Number [facility] [address] [place] [address], [place] * (ABNORMAL) Ammonia TODAY (07/05/2023 1:30 PM CDT) Pathologist [facility] AMMONIA 15(L) 16 - 60 umol/L 07/05/2023 2:46 PM CDT [facility] Blood BLOOD SPECIMEN / Unknown Butterfly / Unknown 07/05/2023 1:30 PM CDT 07/05/2023 1:42 PM CDT Narrative [facility] - 07/05/2023 2:46 PM CDT 1. ??Sulfasalazine and its metabolite Sulfapyridine at therapeutic concentrations may lead to falsely low results. 2. ??Temozolomide and its metabolite MTIC may lead to falsely elevated results, and its metabolite AIC may lead to falsely low results. Lore Noble MD CHEMISTRY Performing Organization Address City/[facility]/ZIP Co de Phone Number [facility] [address] [place] [phone], * Lipid Panel AM (07/04/2023 1:12 PM CDT) [facility] CHOLESTEROL,TOTAL 187 100 - 199 mg/dL 07/04/2023 1:50 PM CDT [facility] Comment: Cholesterol, Total Reference Ranges Desirable <200 mg/dL Borderline 200-239 mg/dL High >=240 mg/dL TRIGLYCERIDES 65 <150 mg/dL 07/04/2023 1:50 PM CDT [facility] HDL CHOLESTEROL 57 >40 mg/dL 1:50 PM CDT [facility] NON-HDL CHOLESTEROL 130 <145 mg/dl 07/04/2023 1:50 PM CDT [facility] CHOL/HDL RATIO 3.28 <4.50 07/04/2023 1:50 PM CDT [facility] LDL CHOLESTEROL 117 <=130 mg/dL 07/04/2023 1:50 PM CDT [facility] VLDL CHOLESTEROL 13 <=30 mg/dL 07/04/2023 1:50 PM CDT [facility] PROVIDER ORDERED STATUS RANDOM 07/04/2023 1:50 PM CDT [facility] Blood BLOOD SPECIMEN / Unknown Butterfly / Unknown 07/04/2023 1:12 PM CDT 07/04/2023 1:21 PM CDT Lore Noble MD CHEMISTRY Performing Organization Address City/[facility]/ZIP Co de Phone Number [facility] [address] [place] [phone], [place] * [place] ARTERIAL LOWER EXTREMITY W [...] Yossi Earl M.D. Interventional Radiology/Diagnostic Radiology (IR/DR) [facility], [email or web address] Narrative 07/04/2023 10:04 AM CDT Table formatting [...] ? RIGHT PSV T, M ??VELOCITY RATIO SILK SCREEN ETCHER Proximal ??447 458 M ?? SILK SCREEN ETCHER Distal 397 395 M ?? PFA 172 M ?? SFA Proximal ?? 66 96 M ?? SFA Mid ??116 77 M ?? SFA Distal ?? 33 28 M ?? POP Proximal ?? 36 M ?? POP Distal ??42 M ?? PARKING ENFORCER ??- ?? KAYA ?? 37 M ?? DPA ??33 M ?? T = Multiphasic; M = Monophasic ?? LEFT PSV T, M VELOCITY RATIO SILK SCREEN ETCHER Proximal ??251 M ?? SILK SCREEN ETCHER Distal 211 M ?? PFA 166 M ?? SFA Proximal ?? 57 43 M ?? SFA Mid ?? 30 19 M ?? SFA Distal ?? 15 M ?? POP Proximal ?? 48 M ?? POP Distal ??54 M ?? PARKING ENFORCER ??44 M ?? KAYA ?? 25 M [...] 32 ??mmHg respectively. ?? Lore Noble MD [place] * HBSAG (HBS) (07/03/2023 11:18 AM CDT) Only the most recent of2 resultswithin the time period is included. HBSAG Nonreactive Nonreactive 07/04/2023 8:42 AM CDT [facility] [place] Blood BLOOD SPECIMEN / Unknown Venipuncture / Unknown 07/03/2023 11:18 AM CDT 07/03/2023 11:45 AM CDT [facility] SEND OUTS Performing Organization Address City/[facility]/ZIP Co de Phone Number [facility] [address] [place] [address], [place] * Sodium TODAY (07/01/2023 2:52 PM CDT) Only the most recent of2 resultswithin the time period is included. SODIUM 136 136 - 145 mmol/L 07/01/2023 4:02 PM CDT [facility] Blood BLOOD SPECIMEN / Unknown Butterfly / Unknown 07/01/2023 2:52 PM CDT 07/01/2023 3:02 PM CDT Vikram Dias MD CHEMISTRY Performing Organization Address City/[facility]/ZIP Co de Phone Number [facility] [address] * SOLUBLE TRANSFERRIN COTTON WEIGHER OPERATOR (06/29/2023 4:19 AM CDT) MECCA.TRANSFERRI N RECEPTOR 2.20 1.90 - 4.40 mg/L 06/30/2023 11:04 AM CDT [facility] Blood BLOOD SPECIMEN / Unknown Butterfly / Unknown 06/29/2023 4:19 AM CDT 06/29/2023 5:30 AM CDT Vikram Dias MD SEND OUTS Performing Organization Address City/[facility]/ZIP Co de Phone Number [facility] [address] * (ABNORMAL) FERRITIN (06/29/2023 4:19 AM CDT) Pathologist [facility] FERRITIN 1,209.0(H) 15.0 - 150.0 ng/mL 06/30/2023 11:03 AM CDT [facility] Blood BLOOD SPECIMEN / Unknown Butterfly / Unknown 06/29/2023 4:19 AM CDT 06/29/2023 5:30 AM CDT Vikram Dias MD CHEMISTRY Performing Organization Address City/[facility]/ZIP Co de Phone Number [facility] [address] * SCAN-CARDIAC STRIP (06/29/2023 2:29 AM CDT) Scanner OTHER * CLOSTRIDIOIDES DIFFICILE TOXIN PCR (06/28/2023 4:18 PM CDT) Pathologist [facility] CLOSTRIDIUM DIFFICILE PCR Negative 06/28/2023 6:09 PM CDT [facility] PRESUMPTIVE NAP1 STRAIN Negative 06/28/2023 6:09 PM CDT [facility] Stool STOOL SPECIMEN / Unknown Non-Blood / Unknown 06/28/2023 4:18 PM CDT 06/28/2023 4:32 PM CDT Narrative [facility] - 06/28/2023 6:09 PM CDT The NAP1 (027 or BI) strain is a hypervirulent strain. Detection may be useful for epidemiological purposes. Vikram Dias MD MICROBIOLOGY [facility] [address] [place] [address], [place] * (ABNORMAL) Basic metabolic panel AM (06/28/2023 2:52 PM CDT) Only the most recent of8 resultswithin the time period is included. SODIUM 135(L) 136 - 145 mmol/L 06/28/2023 4:11 PM CDT [facility] POTASSIUM 3.3(L) 3.5 - 5.1 mmol/L 06/28/2023 4:11 PM CDT [facility] CHLORIDE 96(L) 98 - 107 mmol/L 06/28/2023 4:11 PM CDT [facility] CO2,TOTAL 25 22 - 29 mmol/L 06/28/2023 4:11 PM CDT [facility] ANION GAP 14 5 - 18 06/28/2023 4:11 PM CDT [facility] GLUCOSE 158(H) 70 - 99 mg/dL 06/28/2023 4:11 PM CDT [facility] CALCIUM 9.2 8.8 - 10.2 mg/dL 06/28/2023 4:11 PM CDT [facility] BUN 32(H) 8 - 23 mg/dL 06/28/2023 4:11 PM T [facility] CREATININE 1.83(H) 0.50 - 0.90 mg/dL 06/28/2023 4:11 PM CDT [facility] BUN/CREAT RATIO 17 10 - 20 4:11 PM T [facility] eGFR 28(L) >90 mL/min/1.7 3m2 06/28/2023 4:11 PM CDT [facility] Comment:As of 2021, eG FR [...] 3:00 PM CDT Vikram Dias MD [facility] [address] [place] [address], * ECHO TTE COMPLETE WO CONTRAST (06/28/2023 2:32 PM CDT) AORTIC VALVE MEAN PG 6 mmHg EJECTION FRACTION 71 % PEAK TR VELOCITY 2.6 m/s LVEDD 4.4 cm Anatomical Region Laterality Modality Ultrasound 06/28/2023 12:5 0 PM CDT Narrative 06/28/2023 2:49 PM CDT ECHOCARDIOGRAM CYNTHIA HOLBROOK ?Accession#: ?? [id number] : ?1945 78 years Study Date: ?? 06/28/2023 12:50:33 PM Gender: F ? BP: ? 196/84 mmHg Height: 154.00 cm ? BSA: ?1.66 m? ? ? Weight: 68.00 kg ?Tech: ? AH ?Referring MD: LISBET MENJIVAR Site: ? [facility] Reading Location: ANW IP Patient Location: Procedure: 2D, Spectral Doppler [...] msec Aortic Valve: Vmax ? 1.6 m/s ??WANDY (V) ?? 1.57 cm? ? ? VTI ?0.33 m ?? WANDY (I) ?? 1.60 cm? ? ? LVOT [...] . This study was interpreted by an [facility] accredited facility. ??Final ?? Procedure Note Hanna Lane, [facility] - 06/28/2023 ECHOCARDIOGRAM CYNTHIA HOLBROOK : 1945 78 years Study Date: 06/28/2023 12:50:33 PM Gender: F BP: 196/84 mmHg Height: 154.00 cm BSA: 1.66 m? ? ? Weight: 68.00 kg Tech: Referring MD: LISBET MENJIVAR Site: [facility] Reading Location: ANW IP Patient Location: Procedure: 2D, Spectral Doppler [...] 204 msec Aortic Valve: Vmax 1.6 m/s WANDY (V) 1.57 cm? ? ? VTI 0.33 m WANDY (I) 1.60 cm? ? ? LVOT V [...] . This study was interpreted by an [facility] accredited facility. Final Lisbet Menjivar MD ECHO ORD * SCAN-CARDIAC STRIP (06/28/2023 1:02 AM CDT) Scanner OTHER * ENDOSCOPY (06/27/2023 11:26 AM CDT) 06/27/2023 11:2 6 AM CDT Narrative Transcriptions Kavin Fournier MD - 06/27/2023 1:00 PM CDT [facility] Patient Name: Cynthia Holbrook Procedure Date: 06/27/2023 Gender: Female Date of : 1945 Admit Type: Inpatient Procedure: Upper GI endoscopy Proceduralist: [facility]avin [facility]angel [facility] Indications/Pre-Op Diagnosis: Unexplained iron deficiency anemia, recent Stephani Cardoza tear treated at an outside hospital Medications: Monitored Anesthesia Care Procedure Description: Risk of bleeding, infection, perforation, need for surgery and alternatives discussed. The endoscope [id number] was introduced through the mouth, and advanced [...] electronically. Note Initiated On: 06/27/2023 11:26 AM Garrett Hussein Rangel MD PROCEDURE O RD * (ABNORMAL) CBC no diff AM (06/27/2023 6:06 AM CDT) Only the most recent of5 resultswithin the time period is included. WHITE BLOOD COUNT 7.0 4.5 - 11.0 thou/cu mm 06/27/2023 6:25 AM CDT [facility] RED BLOOD COUNT 2.51(L) 4.00 - 5.20 mil/cu mm 06/27/2023 6:25 AM CDT [facility] HEMOGLOBIN 7.3(L) 12.0 - 16.0 g/dL 06/27/2023 6:25 AM T [facility] HEMATOCRIT 22.4(L) 33.0 - 51.0 % 06/27/2023 6:25 AM CDT [facility] MCV 89 80 - 100 fL 06/27/2023 6:25 AM CDT [facility] MCH 29.1 26.0 - 34.0 pg 06/27/2023 6:25 AM CDT [facility] MCHC 32.6 32.0 - 36.0 g/dL 06/27/2023 6:25 AM CDT [facility] RDW 16.3(H) 11.5 - 15.5 % 06/27/2023 6:25 AM CDT [facility] PLATELET COUNT 251 140 - 440 thou/cu mm 06/27/2023 6:25 AM T [facility] MPV 10.2 6.5 - 11.0 fL 06/27/2023 6:25 AM CDT [facility] NRBC 0.0 % 06/27/2023 6:25 AM T [facility] ABS NRBC 0.0 thou /cu mm 06/27/2023 6:25 AM T [facility] Blood BLOOD SPECIMEN / Unknown Venipuncture / Unknown 06/27/2023 6:06 AM CDT 06/27/2023 6:16 AM CDT Vikram Dias MD HEMATOLOGY Performing Organization Address [facility] [place]/[facility]/ZIP Co de Phone Number [facility] [address] [place] [phone], * SCAN-CARDIAC STRIP (06/27/2023 1:24 AM CDT) Scanner OTHER * SCAN-CARDIAC STRIP (06/26/2023 8:45 PM CDT) Scanner OTHER * COVID/FLU/RSV PANEL (06/26/2023 1:24 PM CDT) Pathologist [facility] COVID 19 [facility] Negative Negative 06/26/2023 3:13 PM CDT [facility] Comment:All PCR tests are isaacs bject to false negative result due to variability in viral load and collection technique. A negative result does not rule out a SARS-CoV-2 infection. Clinical correlation required. INFLUENZA A PCR Negative 4 3:13 PM CDT [facility] INFLUENZA B PCR Negative 4 3:13 PM CDT [facility] Respiratory Syncytial Virus Negative 06/26/2023 3:13 PM CDT [facility] Swab NASOPHARYNGEAL SWAB / Unknown Non-Blood / Unknown 06/26/2023 1:24 PM CDT 06/26/2023 1:38 PM CDT Vikram Dias MD MICROBIOLOGY Performing Organization Address City/[facility]/ZIP Co de Phone Number [facility] [address] [place] [phone], * (ABNORMAL) AEROBIC BACTERIAL CULTURE, STAIN (06/26/2023 1:24 PM CDT) Pathologist [facility] CULTURE RESULT(A) 07/01/2023 10:[address] [facility] CULTURE 1+ Pseudomonas aeruginosa 07/01/2023 10:[address] [facility] CULTURE 1+ Proteus mirabilis 07/01/2023 10:16 AM CDT [facility] CULTURE 1+ Enterococcus faecalis 07/01/2023 10:[address] [facility] GRAM STAIN 1+ Epithelial cells 07/01/2023 10:[address] [facility] GRAM STAIN 2+ PMNs 07/01/2023 10:16 AM CDT [facility] GRAM STAIN No RBCs 07/01/2023 10:[address] [facility] GRAM STAIN No organisms seen 07/01/2023 10:[address] [facility] Other (Other) Non-Blood / Unknown 06/26/2023 [...] AMPICILLIN <=2: S Vikram Dias MD MICROBIOLOGY [facility] [address] [place] [address], [place] * EXTRA TUBE LIGHT GREEN (06/26/2023 1:05 PM CDT) Blood BLOOD SPECIMEN / Unknown Non-Lab Venipuncture / Unknown 06/26/2023 1:05 PM CDT 06/26/2023 1:21 PM CDT Vikram Dias MD LABORATORY Performing Organization Address City/[facility]/ZIP Co de Phone Number [facility] [address] * BLOOD CULTURE (06/26/2023 12:53 PM CDT) Only the most recent of4 resultswithin the time period is included. CULTURE No Growth. 06/30/2023 3:06 PM CDT [facility] Blood BLOOD SPECIMEN / Unknown Line/Port / Unknown 06/26/2023 12:53 PM CDT 06/26/2023 1:01 PM CDT Narrative [facility] - 06/30/2023 3:06 PM CDT Low volume blood culture received; possible false negative culture. Lalita Castillo MD MICROBIOLOGY Performing Organization Address [facility] [place]/[facility] Co de Phone Number [facility] [address] * VANCOMYCIN (06/26/2023 12:53 PM CDT) VANCOMYCIN 21.0 ug/mL 06/26/2023 2:14 PM CDT [facility] Comment:No Reference Range D efined. DATE OF LAST DOSE,RANDOM 06/26/2023 06/26/2023 2:14 PM CDT [facility] TIME OF LAST DOSE,RANDOM 12:00 AM 06/26/2023 2:14 PM CDT [facility] Blood BLOOD SPECIMEN / Unknown Line/Port / Unknown 06/26/2023 12:53 PM CDT 06/26/2023 1:02 PM CDT Lisbet Menjivar MD CHEMISTRY [facility] [address] [address], * MR HEAD BRAIN WO (06/26/2023 11:20 [...] @ 06/26/2023 12:02:17 PM (Electronically Signed) Lisbet Menjivar MD MR * EKG 12 LEAD (06/26/2023 2:40 AM CDT) Only the most recent of2 resultswithin the time period is included. Interpretation Normal sinus rhythm Left axis deviation Moderate voltage criteria for LVH, may be normal variant ( R in aVL , [place] product ) Abnormal ECG When compared with ECG of 04-JUN-2023 10:45, Criteria for Septal infarct are no longer Present No significant change was found BEYOND NOW Ventricular Rate 70 BPM BEYOND NOW Atrial Rate 70 BPM BEYOND NOW P-R Interval 182 ms BEYOND NOW QRS Duration 98 ms BEYOND NOW QT 420 ms BEYOND NOW QTc 453 ms BEYOND NOW P [place] 37 degrees BEYOND NOW R [place] -31 degrees BEYOND NOW T [place] 46 degrees BEYOND NOW 06/26/2023 2:40 AM CDT 06/26/2023 7:24 PM CDT Narrative BEYOND NOW - 06/26/2023 7:24 PM CDT Test Indication: Stat Quyen Worley MD EKG ORD BEYOND NOW [place], [place] * SCAN-CARDIAC STRIP (06/26/2023 12:01 AM CDT) Scanner OTHER * (ABNORMAL) CBC WITH AUTO DIFFERENTIAL (06/26/2023 12:01 AM CDT) Only the most recent of2 resultswithin the time period is included. WHITE BLOOD COUNT 7.1 4.5 - 11.0 thou/cu mm 06/26/2023 12:13 AM CDT [facility] RED BLOOD COUNT 2.54(L) 4.00 - 5.20 mil/cu mm 06/26/2023 12:13 AM CDT [facility] HEMOGLOBIN 7.6(L) 12.0 - 16.0 g/dL 06/26/2023 12:13 AM CDT [facility] HEMATOCRIT 22.5(L) 33.0 - 51.0 % 06/26/2023 12:13 AM CDT [facility] MCV 89 80 - 100 fL 06/26/2023 12:13 AM CDT [facility] MCH 29.9 26.0 - 34.0 pg 06/26/2023 12:13 AM CDT [facility] MCHC 33.8 32.0 - 36.0 g/dL 06/26/2023 12:13 AM CDT [facility] RDW 16.1(H) 11.5 - 15.5 % 06/26/2023 12:13 AM CDT [facility] PLATELET COUNT 279 140 - 440 thou/cu mm 06/26/2023 12:13 AM CDT [facility] MPV 9.6 6.5 - 11.0 fL 06/26/2023 12:13 AM [facility] NRBC 0.0 % 06/26/2023 12:13 AM [facility] ABS NRBC 0.0 thou /cu mm 06/26/2023 12:13 AM [facility] % NEUT 73.9 % 06/26/2023 12:13 AM [facility] % LYMPH 16.3 % 06/26/2023 12:13 AM [facility] % MONO 9.3 % 06/26/2023 12:13 AM [facility] % EOS 0.0 % 06/26/2023 12:13 AM [facility] % BASO 0.1 % 06/26/2023 12:13 AM [facility] % IMMATURE GRAN (METAS,MYELOS,NV OS) 0.4 % 06/26/2023 12:13 AM [facility] ABSOLUTE NEUTROPHILS 5.3 1.7 - 7.0 thou/cu mm 06/26/2023 12:13 AM [facility] ABSOLUTE LYMPHOCYTES 1.2 0.9 - 2.9 thou/cu mm 06/26/2023 12:13 AM [facility] ABSOLUTE MONOCYTES 0.7 <0.9 thou/cu mm 06/26/2023 12:13 AM [facility] ABSOLUTE EOSINOPHILS 0.0 <0.5 thou/cu mm 06/26/2023 12:13 AM [facility] ABSOLUTE BASOPHILS 0.0 <0.3 thou/cu mm 06/26/2023 12:13 AM [facility] ABSOLUTE IMMATURE GRANULOCYTES(MET ,MYELOS,PROS) 0.0 <0.3 thou/cu mm 06/26/2023 12:13 AM [facility] Blood BLOOD SPECIMEN / Unknown Non-Lab Venipuncture / Unknown 06/26/2023 12:01 AM CDT 06/26/2023 12:09 AM CDT Lisbet Menjivar MD HEMATOLOGY Performing Organization Address City/[facility]/ZIP Co de Phone Number [facility] [address] [place] [address], * LACTATE VENOUS (06/26/2023 12:01 AM CDT) Only the most recent of2 resultswithin the time period is included. LACTATE,VENOUS 1.5 0.5 - 2.0 mmol/L 06/26/2023 12:43 AM CDT [facility] Blood BLOOD SPECIMEN / Unknown Non-Lab Venipuncture / Unknown 06/26/2023 12:01 AM CDT 06/26/2023 12:10 AM CDT Lisbet Menjivar MD CHEMISTRY Performing Organization Address [facility] [place]/[facility] Co de Phone Number [facility] [address] [place] [address], * (ABNORMAL) PROCALCITONIN (06/26/2023 12:01 AM CDT) PROCALCITONIN 1.17(H) ng/ml 06/26/2023 3:00 AM CDT [facility] Blood BLOOD SPECIMEN / Unknown Non-Lab Venipuncture / Unknown 06/26/2023 12:01 AM CDT 06/26/2023 12:09 AM CDT Narrative [facility] - 06/26/2023 3:00 AM CDT Procalcitonin [...] concentrations < 2 ng/mL are obtained. Lisbet Menjivar MD [facility] [address] [place] [address], * (ABNORMAL) TSH (06/26/2023 12:01 AM CDT) TSH 8.27(H) 0.27 - 4.20 uIU/mL 06/26/2023 12:48 AM CDT [facility] Blood BLOOD SPECIMEN / Unknown Non-Lab Venipuncture / Unknown 06/26/2023 12:01 AM CDT 06/26/2023 12:09 AM CDT Narrative [facility] - 06/26/2023 12:48 AM CDT In Adults, TSH values between 5.00 and 10.00 uIU/ml do not necessarily indicate the presence of Hypothyroidism. Correlation with clinical findings such as presence of goiter and/or Thyroperoxidase (TPO) Antibody may be helpful. For more information please refer to SRAVANTHI 2004; 291: 228-238. Lisbet Menjivar MD CHEMISTRY Performing Organization Address [facility] [place]/[facility] Co de Phone Number [facility] [address] [place] [address], [place] * (ABNORMAL) Protime - INR (06/26/2023 12:01 AM CDT) Only the most recent of2 resultswithin the time period is included. INR 1.3(H) <1.3 06/26/2023 12:24 AM CDT [facility] PROTIME 14.6(H) 10.3 - 12.3 sec 06/26/2023 12:24 AM CDT [facility] Blood BLOOD SPECIMEN / Unknown Non-Lab Venipuncture / Unknown 06/26/2023 12:01 AM CDT 06/26/2023 12:09 AM CDT Narrative [facility] - 06/26/2023 12:24 AM CDT ?Therapeutic Range [...] if the patient is on UFH. Lisbet Menjivar MD HEMATOLOGY Performing Organization Address [facility] [place]/[facility] Co de Phone Number [facility] [address] [place] [address], [place] * LIPASE (06/26/2023 12:01 AM CDT) LIPASE 49.8 13.0 - 60.0 IU/L 06/26/2023 12:48 AM CDT [facility] Blood BLOOD SPECIMEN / Unknown Non-Lab Venipuncture / Unknown 06/26/2023 12:01 AM CDT 06/26/2023 12:09 AM CDT Lisbet Menjivar MD CHEMISTRY [facility] [address] [place] [address], * (ABNORMAL) Hepatic Function Panel (06/26/2023 12:01 AM CDT) ALBUMIN 3.5(L) 4.0 - 4.9 g/dL 06/26/2023 12:48 AM CDT [facility] PROTEIN,TOTAL 6.6 6.0 - 8.0 g/dL 06/26/2023 12:48 AM CDT [facility] BILIRUBIN,TOTAL 0.4 0.0 - 1.2 mg/dL 06/26/2023 12:48 AM CDT [facility] BILIRUBIN,DIRECT <0.2 0.0 - 0.3 mg/dL 06/26/2023 12:48 AM CDT [facility] BILIRUBIN,INDIRE CT 06/26/2023 12:48 AM CDT [facility] Comment:Unable to calculate, Direct Bili <0.2 ALK PHOSPHATASE 73 35 - 104 IU/L 06/26/2023 12:48 AM CDT [facility] ALT (SGPT) 9(L) 10 - 35 IU/L 06/26/2023 12:48 AM CDT [facility] AST (SGOT) 18 10 - 35 IU/L 06/26/2023 12:48 AM CDT [facility] Blood BLOOD SPECIMEN / Unknown Non-Lab Venipuncture / Unknown 06/26/2023 12:01 AM CDT 06/26/2023 12:09 AM CDT Lisbet Menjivar MD CHEMISTRY Performing Organization Address City/[facility]/ZIP Co de Phone Number [facility] [address] [place] [address], * MRSA/SA PCR (06/25/2023 11:21 PM CDT) MRSA DNA PCR Negative Negative 06/26/2023 12:38 AM CDT [facility] STAPHYLOCOCCUS AUREUS PCR Negative Negative 06/26/2023 12:[address] [facility] Other SPECIMEN FROM INTERNAL NOSE / Unknown Non-Blood / Unknown 06/25/2023 11:21 PM CDT 06/25/2023 11:28 PM CDT Narrative [facility] - 06/26/2023 12:38 AM CDT Test result does not preclude MRSA or SA nasal colonization. Lisbet Menjivar MD MICROBIOLOGY Performing Organization Address [facility] [place]/[facility] Co de Phone Number [facility] [address] [place] [address], * SCAN-CARDIAC STRIP (06/25/2023 9:55 PM CDT) [...] @ Jun 25 2023 10:03PM (Electronically Signed) [email or web address] Narrative 06/25/2023 10:03 PM CDT For Patients: [...] result of the Century Cures Act, medical imagingexams and procedure reports [...] @ Jun 25 2023 10:03PM (Electronically Signed) [email or web address] Lisbet Menjivar MD GENERAL IMAGING * SCAN-CARDIAC STRIP (06/25/2023 12:00 AM CDT) Narrative 06/25/2023 12:00 AM CDT Ordered by an unspecified provider. Other Clinical Staff OTHER * (ABNORMAL) CREATININE (06/12/2023 7:22 AM FINISHING SUPERVISOR) eGFR 22(L) >90 mL/min/1.7 3m2 06/12/2023 7:52 AM FINISHING SUPERVISOR [facility] Comment:As of 2021, eG FR is calculated by the CKD-EPI creatinine equation without race adjustment. ??eGFR can be influenced by muscle mass, exercise, and diet. ??The reported eGFR is an estimation only and is only applicable if the renal function is stable. CREATININE 2.25(H) 0.50 - 0.90 mg/dL 06/12/2023 7:52 AM FINISHING SUPERVISOR [facility] Blood BLOOD SPECIMEN / Unknown Arterial / Unknown 06/12/2023 7:22 AM FINISHING SUPERVISOR 06/12/2023 7:27 AM FINISHING SUPERVISOR Jazzmine Amin MD CHEMISTRY [facility] [place]ENDOUT [place]NAL ZIP [phone] [place] [address] * CO2,TOTAL (06/12/2023 7:22 AM FINISHING SUPERVISOR) CO2,TOTAL 29 22 - 29 mmol/L 06/12/2023 7:52 AM FINISHING SUPERVISOR [facility] Blood BLOOD SPECIMEN / Unknown Arterial / Unknown 06/12/2023 7:22 AM FINISHING SUPERVISOR 06/12/2023 7:27 AM FINISHING SUPERVISOR Jazzmine Amin MD CHEMISTRY Performing Organization Address City/[facility]/ZIP Co de Phone Number [facility] [place] INTER[place] ZIP [phone] [place] [address] * SCAN-CARDIAC STRIP (06/11/2023 10:34 AM FINISHING SUPERVISOR) Scanner OTHER * SCAN-CARDIAC STRIP (06/11/2023 5:34 AM FINISHING SUPERVISOR) Scanner OTHER * SCAN-CARDIAC STRIP (06/10/2023 10:21 PM FINISHING SUPERVISOR) Scanner OTHER * SCAN-CARDIAC STRIP (06/10/2023 7:37 AM FINISHING SUPERVISOR) Scanner OTHER * SCAN-CARDIAC STRIP (06/10/2023 4:24 AM FINISHING SUPERVISOR) Scanner OTHER * SCAN-CARDIAC STRIP (06/09/2023 7:45 AM FINISHING SUPERVISOR) Scanner OTHER * SCAN-CARDIAC STRIP (2023 3:18 PM FINISHING SUPERVISOR) Scanner OTHER * SCAN-CARDIAC STRIP (2023 7:40 AM FINISHING SUPERVISOR) Scanner OTHER * SCAN-CARDIAC STRIP (2023 12:26 AM FINISHING SUPERVISOR) Scanner OTHER * SCAN-CARDIAC STRIP (06/07/2023 4:05 PM FINISHING SUPERVISOR) Scanner OTHER * SCAN-CARDIAC STRIP (06/07/2023 10:43 AM FINISHING SUPERVISOR) Scanner OTHER * SCAN-CARDIAC STRIP (06/06/2023 7:57 PM FINISHING SUPERVISOR) Scanner OTHER * SCAN-CARDIAC STRIP (06/06/2023 5:10 PM FINISHING SUPERVISOR) Scanner OTHER * SCAN-CARDIAC STRIP (06/06/2023 7:41 AM FINISHING SUPERVISOR) Scanner OTHER * SCAN-CARDIAC STRIP (06/06/2023 4:28 AM FINISHING SUPERVISOR) Scanner OTHER * TRANSFUSE RBC (NURSE COMMUNICATION ORDER) (06/05/2023 1:55 PM FINISHING SUPERVISOR) Blood BLOOD SPECIMEN / Unknown Cesar Reddy MD NURSING BLOOD BANK * RBC W/O TYPE & SCREEN (06/05/2023 10:28 AM FINISHING SUPERVISOR) Only the most recent of2 resultswithin the time period is included. QUANTITY 1 06/05/2023 10:28 AM FINISHING SUPERVISOR [facility] BLOOD BANK Blood BLOOD SPECIMEN / Unknown 06/05/2023 10:14 AM FINISHING SUPERVISOR Cesar Reddy MD BLOOD BANK Performing Organization Address [facility] [place]/[facility] de Phone Number [facility]OD [facility]ANK [address] [place] [address] * RED BLOOD CELLS EA UNIT (06/05/2023 10:28 AM FINISHING SUPERVISOR) Only the most recent of2 resultswithin the time period is included. CROSSMATCH Compatible Compatible [facility] BLOOD BANK PRODUCT BLOOD TYPE O Rh Positive [facility] B[facility]OD [facility] PRODUCT ID NUMBER [id number] [facility] BLOOD BANK PRODUCT STATUS Transfused [facility] BLOOD BANK PRODUCT DESCRIPTION RBC -1 LR [facility] BLOOD [facility] PRODUCT CODE [id number] [facility] BLOOD [facility] ISSUE DATE/TIME 06/05/23 10:30 [facility] BLOOD [facility] Cesar Reddy MD BLOOD BANK Performing Organization Address [facility] [place]/[facility] de Phone Number [facility] [address] [place] [address] * ENDOSCOPY (06/05/2023 10:24 AM FINISHING SUPERVISOR) 06/05/2023 10:2 4 AM FINISHING SUPERVISOR Narrative Transcriptions RamboMichael Duffy MD - 06/05/2023 11:57 AM CST Patient [...] candidate for conscious sedation. The endoscope [id number] was introduced through the mouth, and advanced [...] ORD * SCAN-CARDIAC STRIP (06/05/2023 7:49 AM FINISHING SUPERVISOR) Scanner OTHER * TRANSFUSE RBC (NURSE COMMUNICATION ORDER) (06/05/2023 5:33 AM FINISHING SUPERVISOR) Blood BLOOD SPECIMEN / Unknown Hanna Peterson NP NURSING BLOOD BANK * SCAN-CARDIAC STRIP (06/04/2023 5:13 PM FINISHING SUPERVISOR) Scanner OTHER * CT Abdomen Pelvis w IV (Oral Contrast = NO) (06/04/2023 2:14 PM FINISHING SUPERVISOR) Anatomical Region Laterality Modality Abdomen, Pelvis, AORTA, LIVER, SPLEEN Computed Tomography 06/04/2023 2:14 PM FINISHING SUPERVISOR Impressions 06/04/2023 2:24 PM FINISHING SUPERVISOR 1. ??No acute findings in the abdomen and pelvis. Narrative 06/04/2023 2:24 PM FINISHING SUPERVISOR For Patients: As a result of the Century Cures Act, medical imaging exams and procedure reports are released immediately into your electronic medical record. You may view this report before your referring provider. If you have questions, please contact your health care provider. EXAM: CT ABDOMEN PELVIS W LOCATION: [facility] MEDICAL IMAG[facility] DATE: 06/04/2023 INDICATION: Abdominal or [...] provider. EXAM: CT ABDOMEN PELVIS W LOCATION: [facility] MEDICAL IMAGING DATE: 06/04/2023 INDICATION: Abdominal or [...] TYPE AND SCREEN ONLY (06/04/2023 10:43 AM FINISHING SUPERVISOR) ABORH O Rh Positive 06/04/2023 11:49 AM FINISHING SUPERVISOR [facility] BLOOD BANK ANTIBODY SCREEN Negative Negative 06/04/2023 11:49 AM [facility] BLOOD BANK SPECIMEN EXPIRATION DATE/TIME 06/07/23 23:59 06/04/2023 11:49 AM FINISHING SUPERVISOR [facility] BLOOD BANK Blood BLOOD SPECIMEN / Unknown Non-Lab Venipuncture / Unknown 06/04/2023 10:43 AM FINISHING SUPERVISOR 06/04/2023 10:55 AM FINISHING SUPERVISOR Lynne Hurt MD BLOOD BANK [facility] BLOOD BANK [address] [place] [address] * EXTRA TUBE LAVENDER (06/04/2023 10:15 AM FINISHING SUPERVISOR) Blood BLOOD SPECIMEN / Unknown Venipuncture / Unknown 06/04/2023 10:15 AM FINISHING SUPERVISOR 06/04/2023 11:56 AM FINISHING SUPERVISOR Laboratory LABORATORY [facility] [facility] ZIP [id number] [place] [id number] * SCAN-BONE DENSITOMETRY DEXA (12/02/2018 12:00 AM CDT) Anatomical Region Laterality Modality Other Scanner OTHER from Last 3 Months or Most Recently Relevant to Health Maintenance Advance Directives Documents on File Type Date Recorded Patient Foreign Languages Professor Expl anation POLST 12/01/2021 * Full Code [...] Comments Code Status Discussion: Discussed Care Teams Supervisor Treating And Pumping Relationship Specialty Start Date End Date Erickson Vinson MD [address] [place] [address] PCP - General Family Practice 02/01/23
--- OUTSIDE RECORDS SUMMARY | 2023-08-02 10:49 | XMS_ITS | Clinical Summary ---
Author Name Unknown Organization [facility] Address [address] [place] [address] Phone Care Team Providers Care Assembler Fluorescent Lights Name Role Phone Eusebia Whitaker MD Primary Care Provider [phone] Allergies Active Allergy Reactions Criticality Noted Date [...] Influenza Vaccine (Season Ended) 2023 Care Teams Assembler Fluorescent Lights Relationship Specialty Start Date End Date Eusebia Whitaker MD [address] [place] [address] PCP - General Family Medicine 11/24/19
--- OUTSIDE RECORDS SUMMARY | 2023-08-02 10:49 | XMS_ITS | Clinical Summary ---
Author Name Unknown Organization [facility] Address [address] [place] [address] Care Team Providers Care Systems Programmer Analyst Name Role Phone Unavailable Primary Care Provider Unavailabl e Source Comments Patient records contain information from all sites at [facility]. For routine questions regarding patient records, call [phone] during business hours, M-F 8:00 AM - 5:00 PM Central Time. Record requests for emergency care only can be directed to [phone] at any time.[facility] Allergies Active Allergy Reactions Criticality Noted Date Comments Simvastatin Other (see comments) 11/29/2017 Medications Medication Sig Dispensed Refills Start Date End Date Status omeprazole (PriLOSEC) [address] capsule Take 20 mg by mouth daily with lunch. Active Dialyvite 100-1 mg tablet Take 1 tablet by mouth daily. 09/29/2021 Active oxyCODONE (ROXICODONE) 5 mg immediate release tablet Take 5 mg by mouth every 4 (four) hours. Active mirtazapine (REMERON) 15 mg tablet Take 15 mg by mouth at bedtime. 06/02/2022 Active Eliquis 2.5 mg tablet Take 2.5 mg by mouth 2 (two) times a day. 06/02/2022 Active nystatin (NYSTOP) 100,000 unit/gram powder Apply 1 application topically 2 (two) times a day. Abdominal folds 04/28/2022 Active acetaminophen (TYLENOL) 325 mg tablet Take 650 mg by mouth every 8 (eight) hours as needed for pain. Active amoxicillin (AMOXIL) 500 mg capsule Take 1,000 mg by mouth as directed. Take 2 tablets by mouth 30-60 min prior to any dental procedure. 05/02/2022 Active sennosides (senna) 8.6 mg tablet Take 8.6 mg by mouth 2 (two) times a day. Active oxyCODONE (ROXICODONE) 5 mg immediate release tablet Take 5 mg by mouth 2 (two) times a day as needed for moderate pain or score 4-6 of 10 or severe pain or score 7-10 of 10. Active midodrine (PROAMATINE) 10 mg tablet Take 1 tablet (10 mg total) by mouth as needed (As needed before dialysis for SBP less than 120). 06/19/2022 Active atorvastatin (LIPITOR) 20 mg tablet Take 1 tablet (20 mg total) by mouth at bedtime. 06/19/2022 Active magnesium oxide (MAG-OX) 400 mg (241.3 mg magnesium) tablet Take 1 tablet (400 mg total) by mouth 2 (two) times a day before breakfast and dinner. 06/19/[address] Active [address] tablet Take 1 tablet (81 mg total) by mouth daily. 06/19/2022 Active ondansetron ODT (ZOFRAN-ODT) 4 mg disintegrating tablet Dissolve 1 tablet (4 mg total) in the mouth every 8 (eight) hours as needed for nausea or vomiting. 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 Urinary Tract Infection [...] (145 lb 11.6 oz) 023 12:20 PM ELEVATED MOTORMAN Height 165.1 cm (5' 5) 2022 12:3 0 PM ELEVATED MOTORMAN Body Mass Index 24.25 2022 12:30 PM ELEVATED MOTORMAN Plan of Treatment Health Maintenance Due Date Last Done Comments Office Visit for Blood Press ure Check / Re-check 1945 Hepatitis B Vaccines (1 of 3 - Risk Dialysis 4-dose series) 1963 Zoster Vaccines (1 of 2) 11/17/2015 09/22/2015 Influenza Vaccine (#1) 2023 , 01/12/2021, 01/20/2020, Additional history exists Depression Screening (Annual PHQ-2) 04/09/2023 Fall Risk Screen (Annual) 04/09/2023 COVID-19 Vaccine ( - 2022-2 4 season) 2023 01/30/2023, 01/16/2022, 01/20/2021, Additional history exists Creatinine Level (Kidney Fun ction Test) 07/06/2024 07/07/2023, 07/06/2023, 07/05/2023, Additional history exists Sodium Level 07/06/2024 07/07/2023, 06/08, 07/05/2023, Additional history exists Potassium Level 07/07/2024 07/08/2023, 06/09, 07/06/2023, Additional history exists DTaP,Tdap,and Td Vaccines (2 - Td or Tdap) 11/14/2027 11/13/2017 Pneumococcal vaccine (65+ years) Completed 08/19/19 16, 01/20/2010 Medical Devices Implanted Type Area Branch Controller Device Identifier Shelf Expiration Date Model / Serial / Lot [facility] Lgc Lgt Ti - [id number] Implanted:Qty : 1 on 06/06/2022 by Garfield Pavon M.D. at [facility] Hardware e.g. pins/screws/ rods Left: Arm Ethicon LT100 / / Clp Hrzn Ti 6 Clp Anthony - [id number] Implanted:Qty : 1 on 06/06/2022 by Garfield Pavon M.D. at [facility] Hardware e.g. pins/screws/ rods Left: Arm [employer] [id number] / / Clp Lgc Lgt Ti - [id number] Implanted:Qty : 1 on 06/11/2022 by Garfield Pavon M.D. at [facility] Hardware e.g. pins/screws/ rods Ethicon [id number] 02/06/2027 LT100 / / [id number] Clp Hrzn Ti 6 Clp Md Anthony - [id number] Implanted:Qty : 1 on 06/11/2022 by Garfield Pavno M.D. at [facility] Hardware e.g. pins/screws/ rods [employer] [id number] 11/28/2026 [id number] / / [id number] Clp Hrzn Ti 6 Clp Md Anthony - [id number] Implanted:Qty : 1 on 06/12/2022 by Garfield Pavon M.D. at [facility] Hardware e.g. pins/screws/ rods [employer] [id number] 11/28/2026 [id number] / / [id number] Clp Lgc Lgt Ti Sm - [id number] Implanted:Qty : 1 on 06/12/2022 by Garfield Pavon M.D. at [facility] Hardware e.g. pins/screws/ rods Ethicon [id number] 02/06/2027 LT100 / / [id number] [facility] 0.88 - [id number] Implanted:Qty : 1 on 06/12/2022 by Garfield Pavon M.D. at [facility] Mesh or Patch Synovis 03/15/2023 [id number] / / [id number] Explanted Type Area Branch Controller Device Identifier Shelf Expiration Date Model / Serial / Lot [facility] 4-7x45 - [id number] - [id number] Implanted:Qty : 1 on 06/06/2022 by Garfield Pavon M.D. at [facility] Explanted:Qty : 1 on 06/12/2022 by Alejandro Keller M.B.BGatitoSGatito at [facility] Vascular Graft Left: Arterial [place] 11/01/2025 [id number] / [id number] 022 / Description:Left upper extre mity graft Procedures Procedure Name Priority Date/Time Associated Diagnosis Comments EXTI POTASSIUM, S/P Routine 07/08/2023 1 2:15 PM CDT EXTI RENAL FUNCTION PANEL, S Routine 07/07/2023 12:12 PM CDT from Last 3 Months or Most Recently Relevant to Health Maintenance Advance Directives For more information, please contact: [phone] * Full Code (Latest Code Status on [...]
--- OUTSIDE RECORDS SUMMARY | 2023-08-02 10:49 | XMS_ITS | Referral Summary ---
Author Name Unknown Organization [facility] Address [address] [place] [address] Care Team Providers Care Exterminator Termite Name Role Phone Eusebia Whitaker Ann Primary Care Provider [phone] Allergies No known active allergies Medications Medication [...] 10.1 mg/dL 10/01/2019 9:[address] [facility] Blood specimen (specimen) 10/01/2019 9:19 AM CDT 10/01/2019 9:20 AM CDT Adrian Kern MD LAB - BLOOD ORDERABL ES [facility] [address] [id number], [facility] [phone] from Last 3 Months or Most Recently Relevant to Health Maintenance Care Teams Exterminator Termite Relationship Specialty Start Date End Date Eusebia Whitaker [facility] [address] [place] [address] PCP - General Family Practice 09/25/19
--- OUTSIDE RECORDS SUMMARY | 2023-08-02 10:49 | XMS_ITS ---
Author Name Unknown Organization [facility] Address [address] [place] [address] Care Team Providers Care Pasteurizer Name Role Phone Unavailable Unavailable Unavailable Surgery Details Not on file Complications Check Surgery Details section. Procedure Estimated Blood Loss Check Surgery Details section. Procedure Findings Check Surgery Details section. Procedure Specimens Taken Check Surgery Details section.
--- OUTSIDE RECORDS SUMMARY | 2023-08-02 10:49 | XMS_ITS ---
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
--- OUTSIDE RECORDS SUMMARY | 2023-08-02 10:49 | XMS_ITS | Referral Summary ---
Author Name Unknown Organization [facility] Address [address] [place] [address] Care Team Providers Care Variety Lathe Operator Name Role Phone Unavailable Primary Care Provider Unavailabl e Source Comments Patient records contain information from all sites at [facility]. For routine questions regarding patient records, call [phone] during business hours, M-F 8:00 AM - 5:00 PM Central Time. 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 at [facility] Hardware e.g. pins/screws/ rods Left: Arm Ethicon LT100 / / Clp Hrzn Ti 6 Clp Anthony - [id number] Implanted:Qty : 1 on 06/06/2022 by Garfield Pavon M.D. at [facility] Hardware e.g. pins/screws/ rods Left: Arm [employer] [id number] / / Clp Lgc Lgt Ti Sm - [id number] Implanted:Qty : 1 on 06/11/2022 by Garfield Pavon M.D. at [facility] Hardware e.g. pins/screws/ rods Ethicon [id number] 02/06/2027 LT100 / / [id number] Clp Hrzn Ti 6 Clp Anthony - [id number] Implanted:Qty : 1 on 06/11/2022 by Garfield Pavon M.D. at [facility] Hardware e.g. pins/screws/ rods [employer] [id number] 11/28/2026 [id number] / / [id number] Clp Hrzn Ti 6 Clp Anthony - [id number] Implanted:Qty : 1 on 06/12/2022 by Garfield Pavon M.D. at [facility] Hardware e.g. pins/screws/ rods [employer] [id number] 11/28/2026 [id number] / / [id number] Clp Lgc Lgt Ti Sm - [id number] Implanted:Qty : 1 on 06/12/2022 by Garfield Pavon M.D. at [facility] Hardware e.g. pins/screws/ rods Ethicon [id number] 02/06/2027 LT100 / / [id number] Gr Vs 0.88 - [id number] Implanted:Qty : 1 on 06/12/2022 by Garfield Pavon M.D. at [facility] Mesh or Patch Synovis 03/15/2023 [id number] / / [id number] Explanted Type Area Animal Husbandman Device Identifier Shelf Expiration Date Model / Serial / Lot Roseann Prp 4-7x45 - [id number] - [id number] Implanted:Qty : 1 on 06/06/2022 by Garfield Pavon M.D. at [facility] Explanted:Qty : 1 on 06/12/2022 by Alejandro Keller M.B.B.S. at [facility] Vascular Graft Left: Arterial [place] 11/01/2025 [id number] / [id number] / Description:Left upper extre mity graft Procedures Procedure Name Priority Date/Time Associated Diagnosis Comments EXTI POTASSIUM, S/P Routine 07/08/2023 1 2:15 PM CDT EXTI RENAL FUNCTION PANEL, S Routine 07/07/2023 12:12 PM CDT from Last 3 Months or Most Recently Relevant to Health Maintenance Advance Directives For more information, please contact: [phone] * Full Code (Latest Code Status on [...]
--- OUTSIDE RECORDS SUMMARY | 2023-08-02 10:49 | XMS_ITS | Clinical Summary ---
Author Name Unknown Organization [facility] Address [address] [place] [address] Care Team Providers Care Director Of Entertainment Name Role Phone Eusebia Whitaker Ann Primary Care Provider [phone] Allergies No known active allergies Medications Medication [...] 133 - 144 mmol/L 10/01/2019 9:41 AM [facility] Potassium 3.5 3.4 - 5.3 mmol/L 10/01/2019 9:41 AM [facility] Chloride 106 94 - 109 mmol/L 10/01/2019 9:41 AM [facility] Carbon Dioxide 26 20 - 32 mmol/L 10/01/2019 9:51 AM [facility] Anion Gap 6 3 - 14 mmol/L 10/01/2019 9:51 AM [facility] Glucose 102(H) 70 - 99 mg/dL 10/01/2019 9:51 AM [facility] Urea Nitrogen 35(H) 7 - 30 mg/dL 10/01/2019 9:51 AM [facility] Creatinine 2.79(H) 0.52 - 1.04 mg/dL 10/01/2019 9:51 AM [facility] GFR Estimate 16(L) >60 mL/min/{1 .73_m2} 10/01/2019 9:51 AM [facility] Comment: Non GFR Calc Starting 03/26/2018, serum creatinine based estimated GFR (eGFR) will be calculated using the Chronic Kidney Disease Epidemiology Collaboration (CKD-EPI) equation. GFR Estimate If Black 18(L) >60 mL/min/{1 .73_m2} 10/01/2019 9:51 AM [facility] Comment: GFR Calc Starting 03/26/2018, serum creatinine based estimated GFR (eGFR) will be calculated using the Chronic Kidney Disease Epidemiology Collaboration (CKD-EPI) equation. Calcium 8.9 8.5 - 10.1 mg/dL 10/01/2019 9:51 AM CDT [facility] Blood specimen (specimen) 10/01/2019 9:19 AM CDT 10/01/2019 9:20 AM CDT Adrian Kern MD LAB - BLOOD ORDERABL ES [facility] [address] [id number], [facility] [phone] from Last 3 Months or Most Recently Relevant to Health Maintenance Care Teams Director Of Entertainment Relationship Specialty Start Date End Date Eusebia Whitaker [facility] [address] [place] [address] PCP - General Family Practice 09/25/19
== END 2023-08-02 10:46 | disposition home or self-care (01) ==
LOC: WOUND 10:45
PROVIDERS: PCP Family Medicine; Visit Provider Nurse Practitioner Family
DX: I73.9 Peripheral vascular disease, unspecified (principal); L97.225 Non-pressure chronic ulcer of left calf with muscle involvement without evidence of necrosis; Z99.3 Dependence on wheelchair
CPT/HCPCS: 97597

== ENCOUNTER 2023-08-16 09:11 | Outpatient (CLI) | payer OTHER, SELFPAY ==
--- OUTSIDE RECORDS SUMMARY | 2023-08-16 09:15 | XMS_ITS | Continuity of Care Document ---
Author Name Unknown Organization [facility] Address [address] [address] [place] [address] Phone Care Team Providers Care Radiography Technician Name Role Phone Michael Park MD Unavailable [...] Diagnoses Date Provider Providers Copied on Encounter [facility], [address] [address], [place], [place], [id number], [place] tel:[phone] [facility] No Information 4 Xavier Rodriguez. [address], [id number], [place]. tel:[phone] Init Hosp-da E&m Mod Severity [facility], [address] [address], [place], [place], [id number], [place] tel:[phone] [facility] No Information 4 [place]. [address], [id number], [place]. tel:[phone] Referring Provider: Erickson Godwin, [address], [place], [address]. tel:[phone] [facility], [address] [address], [place], [id number], [place] tel:[phone] [facility] Zaira s tear 4 Xavier Rodriguez. [address] [facility], [place] [address], [place], [place], [id number], [place]. tel:[phone] Init Hosp-da E&m Mod Severity [facility], [address] [address], [place], [id number], [place] tel:[phone] [facility] No Information 4 Xavier Rodriguez. [address] [place] [address], [id number], [place]. tel:[phone] Referring Provider: Erickson Vinson MD F, [address] [place] [address], [place], [address]. tel:[phone] Family History Family Member Type Diagnosis Age [...]
--- OUTSIDE RECORDS SUMMARY | 2023-08-16 09:16 | XMS_ITS ---
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
--- OUTSIDE RECORDS SUMMARY | 2023-08-16 09:16 | XMS_ITS | Clinical Summary ---
Author Name Unknown Organization [employer] [facility] Address [place], [place] [address] Care Team Providers Care General Office Clerk Name Role Phone Erickson Vinson MD Primary Care Provider Unavai lable Allergies Active Allergy Reactions Criticality Noted Date Comments Simvastatin Dizziness 11/29/2017 Medications Medication Sig Dispensed Refills Start Date End Date Status Dialyvite 100-1 mg tabIndications:vitami n deficiency Take 1 Tablet by mouth once daily in the afternoon. 09/29/2021 Active apixaban (ELIQUIS) 2.5 mg tabletIndications:pre vent thromboembolism in chronic atrial fibrillation Take 1 Tablet (2.5 mg) by mouth 2 times daily. 0 11/28/2021 Active nystatin powder (MYCOSTATIN) powderIndications:cut aneous candidiasis Apply topically to affected area(s) once daily in the evening. Apply to abdominal folds. 01/27/2022 Active amoxicillin (AMOXIL) 500 mg capsuleIndications:SB E (subacute bacterial endocarditis) prophylaxis candidate Take 2 tabs (1000mg) by mouth, 30-60 min prior to any dental procedure for SBE prophylaxis 2 Capsule 05/02/2022 Active ondansetron (ZOFRAN ODT) 4 mg disintegrating tabletIndications:jordan sea Take 4 mg by mouth every 8 hours if needed. 06/19/2022 Active metoprolol succinate (TOPROL XL) 25 mg Sustained-Release tabletIndications:hyp ertension Take 12.5 mg by mouth once daily in the afternoon. 03/11/2023 Active nystatin (MYCOSTATIN) 100,000 unit/gram topical creamIndications:cuta neous candidiasis Apply topically to affected area(s) three [...] needed for Constipation. Active nystatin powder (MYCOSTATIN) powderIndications:cut aneous candidiasis Apply 1 Strip topically to affected area(s) each time if needed. Apply to abdominal folds topically as needed. Active folic acid 1 mg tabletIndications:Wou nd of left lower extremity, subsequent encounter Take 1 Tablet (1 mg) by mouth once daily. 06/12/2023 Active Additional Information Patient taking differently:1 mg OralDAILY AFTERNOON, Informant: [facility] [place], Reported on 06/25/2023 pantoprazole (PROTONIX) 40 mg delayed-release tabletIndications:Gas trointestinal hemorrhage, unspecified gastrointestinal hemorrhage type Take 1 Tablet (40 mg) by mouth two times daily before meals. 06/12/2023 Active acetic acid 0.25% 0.25 % irrigation Apply topically to affected area(s) every Sunday, and Sunday. 06/14/2023 Active acetaminophen (TYLENOL EXTRA STRGTH) 500 mg tablet Take 1,000 mg by mouth three times daily. 06/01/2023 Active SantyL ointment Apply topically to affected area(s) every Sunday, and Sunday. To left lower leg wound 06/19/2023 Active amLODIPine (NORVASC) 2.5 mg tabletIndications:HTN (hypertension) Take 3 Tablets (7.5 mg) by mouth once daily. 07/04/2023 Active lidocaine 4 % creamIndications:skin irritation,pain Apply to left leg wound TID 07/04/2023 Active mirtazapine (REMERON) 30 mg tabletIndications:herman or depressive disorder Take 0.5 Tablets (15 mg) by mouth at bedtime. 07/04/2023 Active rosuvastatin (CRESTOR) 5 mg tabletIndications:Cer ebrovascular accident (CVA), unspecified mechanism (HC) Take 0.5 Tablets (2.5 mg) by mouth at bedtime. 07/04/2023 Active polyethylene glycol (Miralax) 17 g per packet packetIndications:Con stipation, unspecified constipation type Mix 17 g (1 Packet) in liquid then take by mouth once daily if needed for Constipation. 07/04/2023 Active Senna 8.6 mg tabletIndications:con stipation Take 2 Tablets (17.2 mg) by mouth 2 times daily if needed for Constipation. 07/04/2023 Active mirtazapine (REMERON SOLTAB) 15 mg disintegrating tabletIndications:Cer ebrovascular accident (CVA), unspecified mechanism (HC) Take 1 Tablet (15 mg) by mouth at bedtime. 07/09/2023 Active buprenorphine 10 mcg/hr (BUTRANS) 10 mcg/hour transdermal patchIndications:Pain Apply 1 Patch on dry, clean, hairless skin once weekly. 4 Patch 07/13/2023 Active HYDROmorphone (DILAUDID) 1 mg/mL liquidIndications:Yissel n Take 0.5 mL (0.5 mg) by mouth every 6 hours if needed for Pain. 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 PAF (paroxysmal atrial [...] Encounters Date Type Department Care Team Description 4 Orders Only [facility] Scanner 1 scan: (1-Ord) [facility], TRANSFORMAINAL EPIDURAL THERAPEUTIC INJ, 08/07/2023 4 12:34 PM CDT Anesthesia Event [facility] [address] [place] [address] Jd Reese DO Meyer, Ava, PRODUCT OPERATIONS ASSOCIATE Student 4 11:45 AM CDT - 4 12:45 PM CDT Surgery [facility] [address] [place] [address] Kavin Fournier MD ESOPHAGOGASTRODUODENOSCOPY 4 Travel 4 9:06 PM CDT - 4 1:00 PM CDT Hospital Encounter [facility] [address] [place] [address] Lion Granados MD Weise, Lalita Cisneros MD [facility], [facility] Vikram Dias MD Kohlmeyer, Lore Trent MD Leg pain, bilateral (Primary Dx); HTN (hypertension); Multiple wounds of skin; Cerebrovascular accident (CVA), unspecified mechanism (HC); Constipation, unspecified constipation type; Open wound of left lower extremity, subsequent encounter; Difficulty sleeping; Pain Discharge Disposition: Shelter Facility 4 10:48 AM [employer] Anesthesia Event [address] [address] Cesar Reddy MD McNeely, Melissa H, CRNA 4 10:25 AM [employer] - 4 11:08 AM [employer] Surgery [address] [address] Michael Ricks MD ESOPHAGOGASTRODUODENOSCOPY 4 9:10 AM [employer] - 4 11:30 AM [employer] Hospital Encounter [address] [address] Lynne Hurt MD [facility], Hospitalist Mallory Olvera MD Sahni, Nishant, MBBS Hasan, LEONILA Singh Saadia Zafar, MD Gastrointestinal hemorrhage, unspecified gastrointestinal hemorrhage type (Primary Dx); PAF (paroxysmal atrial fibrillation) (HC); Multiple wounds of skin; Wound of left lower extremity, subsequent encounter; HTN (hypertension) Discharge Disposition: Shelter Facility 4 Travel from Last 3 Months Family History [...] Procedure Name Priority Date/Time Associated Diagnosis Comments SCAN-OPERATIVE/PROCEDURE REPORT 08/07/2023 12:00 AM CDT GLUCOSE METER Timed 07/09/2023 6:23 AM CDT [...] Timed 06/29/2023 12:56 PM CDT SOLUBLE TRANSFERRIN LABOR DELIVERY RN JULY 2023 4:19 AM CDT FERRITIN JULY [...] CDT CO2,TOTAL Early AM 06/12/2023 7:22 AM [employer] WHITE BLOOD COUNT Early AM 06/12/2023 7:22 AM [employer] HEMOGLOBIN Early AM 06/12/2023 7:22 AM [employer] CREATININE Early AM 06/12/2023 7:22 AM [employer] POTASSIUM Early AM 06/12/2023 7:22 AM [employer] SODIUM Early AM 06/12/2023 7:22 AM [employer] SCAN-CARDIAC STRIP 06/11/2023 10:34 AM [employer] CBC W PLT NO DIFF Today 06/11/2023 8:09 AM [employer] SCAN-CARDIAC STRIP 06/11/2023 5:34 AM [employer] SCAN-CARDIAC STRIP 06/10/2023 10:21 PM [employer] SCAN-CARDIAC STRIP 06/10/2023 7:37 AM [employer] CBC WITH AUTO DIFFERENTIAL Early AM 06/09 4:44 AM [employer] BASIC METABOLIC PANEL Early AM 06/10/2023 4:44 AM [employer] CBC WITH AUTO DIFFERENTIAL Early AM 06/09 4:44 AM [employer] SCAN-CARDIAC STRIP 06/10/2023 4:24 AM [employer] SCAN-CARDIAC STRIP 06/09/2023 7:45 AM [employer] SCAN-CARDIAC STRIP 2023 3:18 PM [employer] HEMOGLOBIN Timed 2023 12:11 PM [employer] SCAN-CARDIAC STRIP 2023 7:40 AM [employer] SCAN-CARDIAC STRIP 2023 12:26 AM [employer] HEMOGLOBIN Timed 2023 12:12 AM [employer] SCAN-CARDIAC STRIP 06/07/2023 4:05 PM [employer] HEMOGLOBIN Timed 06/07/2023 12:06 PM [employer] SCAN-CARDIAC STRIP 06/07/2023 10:43 AM [employer] BASIC METABOLIC PANEL Early AM 06/07/2023 5:02 AM [employer] HEMOGLOBIN Timed 06/07/2023 12:47 AM [employer] SCAN-CARDIAC STRIP 06/06/2023 7:57 PM [employer] SCAN-CARDIAC STRIP 06/06/2023 5:10 PM [employer] POTASSIUM Early AM 06/06/2023 8:45 AM [employer] HEMOGLOBIN Timed 06/06/2023 8:45 AM [employer] SCAN-CARDIAC STRIP 06/06/2023 7:41 AM [employer] SCAN-CARDIAC STRIP 06/06/2023 4:28 AM [employer] HEMOGLOBIN Timed 06/05/2023 9:18 PM [employer] HEMOGLOBIN Timed 06/05/2023 4:14 PM [employer] ESOPHAGOGASTRODUODENOSCOPY W ITH HEMOSTASIS 06/05/2023 10:43 AM [employer] Stephani kenzie tear ESOPHAGOGASTRODUODENOSCOPY 06/05 10:43 AM [employer] Stephani kenzie tear TRANSFUSE RBC (NURSE COMMUNICATION ORDER) STAT 06/05/2023 10:40 AM [employer] RBC W/O TYPE & SCREEN STAT 06/05/2023 10:28 AM [employer] RED BLOOD CELLS EA UNIT STAT 06/05/19 10:28 AM [employer] ENDOSCOPY 06/05/2023 10:24 AM [employer] SCAN-CARDIAC STRIP 06/05/2023 7:49 AM [employer] BASIC METABOLIC PANEL Early AM 06/05/2023 7:06 AM [employer] CBC W PLT NO DIFF Early AM 06/05/2023 7:06 AM [employer] HEMOGLOBIN Timed 06/05/2023 7:06 AM [employer] TRANSFUSE RBC (NURSE COMMUNICATION ORDER) STAT 06/05/2023 2:37 AM [employer] RBC W/O TYPE & SCREEN STAT 06/05/2023 1:36 AM [employer] RED BLOOD CELLS EA UNIT STAT 06/05/19 1:36 AM [employer] HEMOGLOBIN Timed 06/05/2023 12:15 AM [employer] XR CHEST 1 VIEW PORTABLE STAT 024 11:37 PM [employer] SCAN-CARDIAC STRIP 06/04/2023 5:13 PM [employer] HEMOGLOBIN Timed 06/04/2023 4:[address] [employer] [address] ABDOMEN PELVIS W STAT 06/04/2023 2:14 PM [employer] HBSAG (HBS) JULY 06/04/2023 11:23 AM [employer] POTASSIUM STAT 06/04/2023 11:23 AM [employer] EKG 12 LEAD STAT 06/04/2023 10:45 AM [employer] TYPE & SCREEN STAT 06/04/2023 10:43 AM [employer] BLOOD CULTURE STAT 06/04/2023 10:43 AM [employer] BLOOD CULTURE STAT 06/04/2023 10:43 AM [employer] LACTATE VENOUS STAT 06/04/2023 10:43 AM [employer] EXTRA TUBE LAVENDER Today 06/04/2023 10:15 AM [employer] BASIC METABOLIC PANEL STAT 06/04/2023 10:12 AM [employer] PROTIME-INR STAT 06/04/2023 10:12 AM [employer] CBC W PLT NO DIFF STAT 06/04/2023 10:12 AM [employer] SCAN-BONE DENSITOMETRY DEXA 11/08 12:00 AM CDT from Last 3 Months or Most Recently Relevant to Health Maintenance Results * SCAN-OPERATIVE/PROCEDURE REPORT (08/07/2023 12:00 AM CDT) Scanner OTHER * (ABNORMAL) GLUCOSE METER (07/09/2023 6:23 AM CDT) Only the most recent of51 resultswithin the time period is included. GLUCOSE METER 143(H) 65 - 100 mg/dL 07/09/2023 6:24 AM CDT [facility] Blood BLOOD SPECIMEN / Unknown 07/09/2023 6:23 AM CDT 07/09/2023 6:24 AM CDT Vikram Dias MD CHEMISTRY Performing Organization Address City/[facility]/ZIP Co de Phone Number [facility] [address] [address], [place] * Potassium AM (07/08/2023 12:15 PM CDT) Only the most recent of6 resultswithin the time period is included. POTASSIUM 4.2 3.5 - 5.1 mmol/L 07/08/2023 1:32 PM CDT [facility] Blood BLOOD SPECIMEN / Unknown Venipuncture / Unknown 07/08/2023 12:15 PM CDT 07/08/2023 12:23 PM CDT Lore Noble MD CHEMISTRY Performing Organization Address [facility] Co de Phone Number [facility] [address] [id number], [place] * WBC AM (07/08/2023 12:14 PM CDT) Only the most recent of5 resultswithin the time period is included. WHITE BLOOD COUNT 6.5 4.5 - 11.0 thou/cu mm 07/08/2023 12:47 PM CDT [facility] NRBC 0.0 % 07/08/2023 12:47 PM CDT [facility] ABS NRBC 0.0 thou /cu mm 07/08/2023 12:47 PM CDT [facility] Blood BLOOD SPECIMEN / Unknown Venipuncture / Unknown 07/08/2023 12:14 PM CDT 07/08/2023 12:23 PM CDT Lore Noble MD HEMATOLOGY Performing Organization Address City/[facility]/ZIP Co de Phone Number [facility] [address] [place] [address], [place] * EXTRA TUBE GOLD/SST (07/07/2023 12:12 PM CDT) Blood BLOOD SPECIMEN / Unknown Non-Lab Venipuncture / Unknown 07/07/2023 12:12 PM CDT 07/07/2023 12:18 PM CDT Lore Noble MD [facility] [address] [place] [address], * (ABNORMAL) RENAL FUNCTION PANEL (07/07/2023 12:12 PM CDT) Only the most recent of5 resultswithin the time period is included. SODIUM 135(L) 136 - 145 mmol/L 07/07/2023 12:45 PM CDT [facility] POTASSIUM 4.2 3.5 - 5.1 mmol/L 07/07/2023 12:45 PM CDT [facility] CHLORIDE 96(L) 98 - 107 mmol/L 07/07/2023 12:45 PM CDT [facility] CO2,TOTAL 25 22 - 29 mmol/L 07/07/2023 12:45 PM CDT [facility] ANION GAP 14 5 - 18 07/07/2023 12:45 PM CDT [facility] GLUCOSE 104(H) 70 - 99 mg/dL 07/07/2023 12:45 PM CDT [facility] CALCIUM 9.7 8.8 - 10.2 mg/dL 07/07/2023 12:45 PM CDT [facility] BUN 51(H) 8 - 23 mg/dL 07/07/2023 12:45 PM CDT [facility] CREATININE 2.63(H) 0.50 - 0.90 mg/dL 07/07/2023 12:45 PM CDT [facility] BUN/CREAT RATIO 19 10 - 20 12:45 PM CDT [facility] eGFR 18(L) >90 mL/min/1.7 3m2 07/07/2023 12:45 PM CDT [facility] Comment:As of 2021, eG FR is calculated by the CKD-EPI creatinine equation without race adjustment. ??eGFR can be influenced by muscle mass, exercise, and diet. ??The reported eGFR is an estimation only and is only applicable if the renal function is stable. PHOSPHORUS 3.2 2.5 - 4.5 mg/dL 07/07/2023 12:45 PM CDT [facility] ALBUMIN 3.6(L) 4.0 - 4.9 g/dL 07/07/2023 12:45 PM CDT [facility] Blood BLOOD SPECIMEN / Unknown Venipuncture / Unknown 07/07/2023 12:12 PM CDT 07/07/2023 12:17 PM CDT Lore Noble MD CHEMISTRY Performing Organization Address City/[facility]/ZIP Co de Phone Number [facility] [address] [place] [phone], [place] * (ABNORMAL) HEMOGLOBIN (07/06/2023 3:52 PM CDT) Only the most recent of21 resultswithin the time period is included. Pathologist [facility] HEMOGLOBIN 8.6(L) 12.0 - 16.0 g/dL 07/06/2023 4:16 PM CDT [facility] MCV 94 80 - 100 fL 07/06/2023 4:16 PM CDT [facility] Blood BLOOD SPECIMEN / Unknown Butterfly / Unknown 07/06/2023 3:52 PM CDT 07/06/2023 3:58 PM CDT Harjit Edwards MD HEMATOLOGY Performing Organization Address City/[facility]/ZIP Co de Phone Number [facility] [address] [place] [phone], [place] * CT head without contrast (07/05/2023 [...] CORTISOL,TOTAL 8.6 ug/dL 07/05/2023 2:43 PM CDT [facility] Blood BLOOD SPECIMEN / Unknown Butterfly / Unknown 07/05/2023 1:30 PM CDT 07/05/2023 1:42 PM CDT Narrative [facility] - 07/05/2023 2:43 PM CDT Cortisol ?Morning Hours ?6:00 ??AM - 10:00 AM ?(4.8-19.5 ug/dL) Cortisol ?Afternoon Hours ??4:00 ??PM - ??8:00 PM ?(2.5-11.9 ug/dL) ? Biotin supplements may cause clinically significant interference for this test assay. ??If interference is suspected, it is strongly recommended that biotin is discontinued for at least one week prior to retesting. Lore Noble MD CHEMISTRY [facility] [address] [place] [address], * (ABNORMAL) BLOOD GAS,VENOUS (07/05/2023 1:30 PM CDT) Only the most recent of2 resultswithin the time period is included. PH, VENOUS 7.38 7.32 - 7.43 07/05/2023 1:47 PM CDT [facility] PCO2, VENOUS 50 41 - 51 mmHg 07/05/2023 1:47 PM CDT [facility] PO2, VENOUS 22(L) 35 - 40 mmHg 07/05/2023 1:47 PM CDT [facility] HCO3,VENOUS 30(H) 22 - 29 mmol/L 07/05/2023 1:47 PM CDT [facility] BASE EXCESS, VENOUS, POCT 3.4(H) -2.0 - 3.0 07/05/2023 1:47 PM CDT [facility] O2 SATURATION, VENOUS 48(L) 70 - 75 % 07/05/2023 1:47 PM CDT [facility] PATIENT TEMPERATURE 37.0 Degrees C 07/05/2023 1:47 PM CDT [facility] Blood BLOOD SPECIMEN / Unknown Butterfly / Unknown 07/05/2023 1:30 PM CDT 07/05/2023 1:42 PM CDT Lore Noble MD CHEMISTRY [facility] [address] [place] [id number], * (ABNORMAL) T3,TOTAL (07/05/2023 1:30 PM CDT) T3,TOTAL 63(L) 85 - 202 ng/dL 07/05/2023 3:16 PM CDT [facility] Blood BLOOD SPECIMEN / Unknown Butterfly / Unknown 07/05/2023 1:30 PM CDT 07/05/2023 1:42 PM CDT Lore Noble MD CHEMISTRY [facility] [address] [address], [place] * T4, free AM (07/05/2023 1:30 PM CDT) Only the most recent of2 resultswithin the time period is included. T4,FREE 1.28 0.93 - 1.70 ng/dL 07/05/2023 2:43 PM CDT [facility] Blood BLOOD SPECIMEN / Unknown Butterfly / Unknown 07/05/2023 1:30 PM CDT 07/05/2023 1:42 PM CDT Lore Noble MD CHEMISTRY Performing Organization Address [facility] Co de Phone Number [facility] [address] [address], [place] * (ABNORMAL) Vitamin B12 level AM (07/05/2023 1:30 PM CDT) VITAMIN B12 1,627(H) 232 - 1,245 pg/mL 07/05/2023 2:44 PM CDT [facility] Blood BLOOD SPECIMEN / Unknown Butterfly / Unknown 07/05/2023 1:30 PM CDT 07/05/2023 1:42 PM CDT Narrative [facility] - 07/05/2023 2:44 PM CDT Biotin supplements may cause clinically significant interference for this test assay. ??If interference is suspected, it is strongly recommended that biotin is discontinued for at least one week prior to retesting. Lore Noble MD CHEMISTRY Performing Organization Address [facility] Co de Phone Number [facility] [address] [address], [place] * (ABNORMAL) Ammonia TODAY (07/05/2023 1:30 PM CDT) AMMONIA 15(L) 16 - 60 umol/L 07/05/2023 2:46 PM CDT [facility] Blood BLOOD SPECIMEN / Unknown Butterfly / Unknown 07/05/2023 1:30 PM CDT 07/05/2023 1:42 PM CDT [facility] - 07/05/2023 2:46 PM CDT 1. ??Sulfasalazine and its metabolite Sulfapyridine at therapeutic concentrations may lead to falsely low results. 2. ??Temozolomide and its metabolite MTIC may lead to falsely elevated results, and its metabolite AIC may lead to falsely low results. Lore Noble MD CHEMISTRY [facility] [address] [place] [address], * Lipid Panel AM (07/04/2023 1:12 PM CDT) Pathologist [facility] CHOLESTEROL,TOTAL 187 100 - 199 mg/dL 07/04/2023 1:50 PM CDT [facility] Comment: Cholesterol, Total Reference Ranges Desirable <200 mg/dL Borderline 200-239 mg/dL High >=240 mg/dL TRIGLYCERIDES 65 <150 mg/dL 07/04/2023 1:50 PM CDT [facility] HDL CHOLESTEROL 57 >40 mg/dL 1:50 PM CDT [facility] NON-HDL CHOLESTEROL 130 <145 mg/dl 07/04/2023 1:50 PM CDT [facility] CHOL/HDL RATIO 3.28 <4.50 07/04/2023 1:50 PM CDT [facility] LDL CHOLESTEROL 117 <=130 mg/dL 07/04/2023 1:50 PM CDT [facility] VLDL CHOLESTEROL 13 <=30 mg/dL 07/04/2023 1:50 PM CDT [facility] PROVIDER ORDERED STATUS RANDOM 07/04/2023 1:50 PM CDT [facility] Blood BLOOD SPECIMEN / Unknown Butterfly / Unknown 07/04/2023 1:12 PM CDT 07/04/2023 1:21 PM CDT Lore Noble MD CHEMISTRY [facility] [address] [place] [address], [place] * [place] ARTERIAL LOWER EXTREMITY W [...] Yossi Earl M.D. Interventional Radiology/Diagnostic Radiology (IR/DR) [email or web address] [facility] [email or web address] Narrative 07/04/2023 10:04 AM CDT Table [...] ? RIGHT PSV T, M ??VELOCITY RATIO EXPENSE CLERK Proximal ??447 458 M ?? EXPENSE CLERK Distal 397 395 M ?? PFA 172 M ?? SFA Proximal ?? 66 96 M ?? SFA Mid ??116 77 M ?? SFA Distal ?? 33 28 M ?? POP Proximal ?? 36 M ?? POP Distal ??42 M ?? ASSEMBLY LINE UPHOLSTERER ??- ?? KAYA ?? 37 M ?? DPA ??33 M ?? T = Multiphasic; M = Monophasic ?? LEFT PSV T, M VELOCITY RATIO EXPENSE CLERK Proximal ??251 M ?? EXPENSE CLERK Distal 211 M ?? PFA 166 M ?? SFA Proximal ?? 57 43 M ?? SFA Mid ?? 30 19 M ?? SFA Distal ?? 15 M ?? POP Proximal ?? 48 M ?? POP Distal ??54 M ?? ASSEMBLY LINE UPHOLSTERER ??44 M ?? KAYA ?? 25 M [...] HBSAG Nonreactive Nonreactive 07/04/2023 8:42 AM CDT [facility] Blood BLOOD SPECIMEN / Unknown Venipuncture / Unknown 07/03/2023 11:18 AM CDT 07/03/2023 11:45 AM CDT [facility] [address] [place] [address], [place] * Sodium TODAY (07/01/2023 2:52 PM CDT) Only the most recent of2 resultswithin the time period is included. SODIUM 136 136 - 145 mmol/L 07/01/2023 4:02 PM CDT [facility] Blood BLOOD SPECIMEN / Unknown Butterfly / Unknown 07/01/2023 2:52 PM CDT 07/01/2023 3:02 PM CDT Vikram Dias MD CHEMISTRY Performing Organization Address City/[facility]/ZIP Co de Phone Number [facility] [address] [place] [address], * SOLUBLE TRANSFERRIN LABOR DELIVERY RN (06/29/2023 4:19 AM CDT) [facility] MECCA.TRANSFERRI N RECEPTOR 2.20 1.90 - 4.40 mg/L 06/30/2023 11:04 AM CDT [facility] Blood BLOOD SPECIMEN / Unknown Butterfly / Unknown 06/29/2023 4:19 AM CDT 06/29/2023 5:30 AM CDT Vikram Dias MD SEND OUTS Performing Organization Address [facility] Co de Phone Number [facility] [address] [place] [address], * (ABNORMAL) FERRITIN (06/29/2023 4:19 AM CDT) [facility] FERRITIN 1,209.0(H) 15.0 - 150.0 ng/mL 06/30/2023 11:03 AM CDT [facility] Blood BLOOD SPECIMEN / Unknown Butterfly / Unknown 06/29/2023 4:19 AM CDT 06/29/2023 5:30 AM CDT Vikram Dias MD CHEMISTRY Performing Organization Address City/[facility]/ZIP Co de Phone Number [facility] [address] [place] [address], * SCAN-CARDIAC STRIP (06/29/2023 2:29 AM CDT) Scanner OTHER * CLOSTRIDIOIDES DIFFICILE TOXIN PCR (06/28/2023 4:18 PM CDT) [facility] CLOSTRIDIUM DIFFICILE PCR Negative 06/28/2023 6:09 PM CDT [facility] PRESUMPTIVE NAP1 STRAIN Negative 06/28/2023 6:09 PM CDT [facility] Stool STOOL SPECIMEN / Unknown Non-Blood / Unknown 06/28/2023 4:18 PM CDT 06/28/2023 4:32 PM CDT Narrative [facility] - 06/28/2023 6:09 PM CDT The NAP1 (027 or BI) strain is a hypervirulent strain. Detection may be useful for epidemiological purposes. Vikram Dias MD MICROBIOLOGY [facility] [address] [place] [address], * (ABNORMAL) Basic metabolic panel AM (06/28/2023 2:52 PM CDT) Only the most recent of8 resultswithin the time period is included. SODIUM 135(L) 136 - 145 mmol/L 06/28/2023 4:11 PM T [facility] POTASSIUM 3.3(L) 3.5 - 5.1 mmol/L 06/28/2023 4:11 PM T [facility] CHLORIDE 96(L) 98 - 107 mmol/L 06/28/2023 4:11 PM T [facility] CO2,TOTAL 25 22 - 29 mmol/L 06/28/2023 4:11 PM T [facility] ANION GAP 14 5 - 18 06/28/2023 4:11 PM T [facility] GLUCOSE 158(H) 70 - 99 mg/dL 06/28/2023 4:11 PM T [facility] CALCIUM 9.2 8.8 - 10.2 mg/dL 06/28/2023 4:11 PM T [facility] BUN 32(H) 8 - 23 mg/dL 06/28/2023 4:11 PM T [facility] CREATININE 1.83(H) 0.50 - 0.90 mg/dL 06/28/2023 4:11 PM T [facility] BUN/CREAT RATIO 17 10 - 20 4 4:11 PM CDT [facility] eGFR 28(L) >90 mL/min/1.7 3m2 06/28/2023 4:[address] [facility] Comment:As of 2021, eG FR [...] 3:00 PM CDT Vikram Dias MD CHEMISTRY [facility] [address] [place] [address], [place] * ECHO TTE COMPLETE WO CONTRAST (06/28/2023 2:32 PM CDT) AORTIC VALVE MEAN PG 6 mmHg EJECTION FRACTION 71 % PEAK TR VELOCITY 2.6 m/s LVEDD 4.4 cm Anatomical Region Laterality Modality Ultrasound 06/28/2023 12:5 0 PM CDT Narrative 06/28/2023 2:49 PM CDT ECHOCARDIOGRAM CYNTHIA HOLBROOK ?Accession#: ?? [id number] : ?1945 78 years Study Date: ?? 06/28/2023 12:50:33 PM Gender: F ? BP: ? 196/84 mmHg Height: 154.00 cm ? BSA: ?1.66 m? ? ? Weight: 68.00 kg ?Tech: ? AH ?Referring MD: LISBET MENJIVAR Site: ? [facility] Reading Location: [facility] Patient Location: Procedure: 2D, Spectral Doppler and [...] . This study was interpreted by an [facility] accredited facility. ??Final ?? Procedure Note Hanna Lane, [facility] - 06/28/2023 ECHOCARDIOGRAM CYNTHIA HOLBROOK : 1945 78 years Study Date: 06/28/2023 12:50:33 PM Gender: F BP: 196/84 mmHg Height: 154.00 cm BSA: 1.66 m? ? ? Weight: 68.00 kg Tech: WILLIS Referring MD: LISBET MENJIVAR Site: [facility] Reading Location: [facility] Patient Location: Procedure: 2D, Spectral Doppler and [...] . This study was interpreted by an [facility] accredited facility. Final Lisbet KEEN ECHO ORD * SCAN-CARDIAC STRIP (06/28/2023 1:02 AM CDT) Scanner OTHER * ENDOSCOPY (06/27/2023 11:26 AM CDT) 06/27/2023 11:2 6 AM CDT Narrative Transcriptions Kavin Fournier MD - 06/27/2023 1:00 PM CDT [facility] Patient Name: Cynthia Holbrook Procedure Date: 06/27/2023 Gender: Female Date of : 1945 Admit Type: Inpatient Procedure: Upper GI endoscopy Proceduralist: Kavin Rangel MD - [facility] Indications/Pre-Op Diagnosis: Unexplained iron deficiency anemia, recent Stephani Cardoza tear treated at an outside hospital Medications: Monitored Anesthesia Care Procedure Description: Risk of bleeding, infection, perforation, need for surgery and alternatives discussed. The endoscope [id number] was introduced through the mouth, and advanced [...] 11.0 thou/cu mm 06/27/2023 6:25 AM CDT [facility] RED BLOOD COUNT 2.51(L) 4.00 - 5.20 mil/cu mm 06/27/2023 6:25 AM CDT [facility] HEMOGLOBIN 7.3(L) 12.0 - 16.0 g/dL 06/27/2023 6:25 AM CDT [facility] HEMATOCRIT 22.4(L) 33.0 - 51.0 % 06/27/2023 6:25 AM CDT [facility] MCV 89 80 - 100 fL 06/27/2023 6:25 AM CDT [facility] MCH 29.1 26.0 - 34.0 pg 06/27/2023 6:25 AM CDT [facility] MCHC 32.6 32.0 - 36.0 g/dL 06/27/2023 6:25 AM CDT [facility] RDW 16.3(H) 11.5 - 15.5 % 06/27/2023 6:25 AM CDT [facility] PLATELET COUNT 251 140 - 440 thou/cu mm 06/27/2023 6:25 AM CDT [facility] MPV 10.2 6.5 - 11.0 fL 06/27/2023 6:25 AM CDT [facility] NRBC 0.0 % 06/27/2023 6:25 AM CDT [facility] ABS NRBC 0.0 thou /cu mm 06/27/2023 6:25 AM CDT [facility] Blood BLOOD SPECIMEN / Unknown Venipuncture / Unknown 06/27/2023 6:06 AM CDT 06/27/2023 6:16 AM CDT Vikram Dias MD HEMATOLOGY Performing Organization Address [facility] Co de Phone Number [facility] [address] [place] [address], * SCAN-CARDIAC STRIP (06/27/2023 1:24 AM CDT) Scanner OTHER * SCAN-CARDIAC STRIP (06/26/2023 8:45 PM CDT) Scanner OTHER * COVID/FLU/RSV PANEL (06/26/2023 1:24 PM CDT) Pathologist [facility] COVID 19 [facility] Negative Negative 06/26/2023 3:13 PM CDT [facility] Comment:All PCR tests are isaacs bject to false negative result due to variability in viral load and collection technique. A negative result does not rule out a SARS-CoV-2 infection. Clinical correlation required. INFLUENZA A PCR Negative 4 3:13 PM CDT [facility] INFLUENZA B PCR Negative 4 3:13 PM CDT [facility] Respiratory Syncytial Virus Negative 06/26/2023 3:13 PM CDT [facility] Swab NASOPHARYNGEAL SWAB / Unknown Non-Blood / Unknown 06/26/2023 1:24 PM CDT 06/26/2023 1:38 PM CDT Vikram Dias MD MICROBIOLOGY Performing Organization Address [facility]/ZIP Co de Phone Number [facility] [address] [place] [phone], * (ABNORMAL) AEROBIC BACTERIAL CULTURE, STAIN (06/26/2023 1:24 PM CDT) CULTURE RESULT(A) 07/01/2023 10:16 AM CDT [facility] [place] [place] [facility] CULTURE 1+ Pseudomonas aeruginosa 07/01/2023 10:16 AM CDT [facility] [place] [place] [facility] CULTURE 1+ Proteus mirabilis 07/01/2023 10:16 AM CDT [facility] [place] [place] [facility] CULTURE 1+ Enterococcus faecalis 07/01/2023 10:16 AM CDT [facility] GRAM STAIN 1+ Epithelial cells 07/01/2023 10:16 AM CDT [facility] [place] [place] [facility] GRAM STAIN 2+ PMNs 07/01/2023 10:16 AM CDT [facility] GRAM STAIN No RBCs 07/01/2023 10:16 AM CDT [facility] GRAM STAIN No organisms seen 07/01/2023 10:16 AM CDT [facility] Other (Other) Non-Blood / Unknown 06/26/2023 [...] AMPICILLIN <=2: S Vikram Dias MD MICROBIOLOGY [facility] [address] [place] [address], [place] * EXTRA TUBE LIGHT GREEN (06/26/2023 1:05 PM CDT) Blood BLOOD SPECIMEN / Unknown Non-Lab Venipuncture / Unknown 06/26/2023 1:05 PM CDT 06/26/2023 1:21 PM CDT Vikram Dias MD LABORATORY Performing Organization Address [facility] Co de Phone Number [facility] [address] [address], * BLOOD CULTURE (06/26/2023 12:53 PM CDT) Only the most recent of4 resultswithin the time period is included. CULTURE No Growth. 06/30/2023 3:06 PM CDT [facility] Blood BLOOD SPECIMEN / Unknown Line/Port / Unknown 06/26/2023 12:53 PM CDT 06/26/2023 1:01 PM CDT Narrative [facility] - 06/30/2023 3:06 PM CDT Low volume blood culture received; possible false negative culture. Lalita Castillo MD MICROBIOLOGY Performing Organization Address [facility] Co de Phone Number [facility] [address] [place] [address], * VANCOMYCIN (06/26/2023 12:53 PM CDT) VANCOMYCIN 21.0 ug/mL 06/26/2023 2:14 PM CDT [facility] Comment:No Reference Range D efined. DATE OF LAST DOSE,RANDOM 06/26/2023 06/26/2023 2:14 PM CDT [facility] TIME OF LAST DOSE,RANDOM 12:00 AM 06/26/2023 2:14 PM CDT [facility] Blood BLOOD SPECIMEN / Unknown Line/Port / Unknown 06/26/2023 12:53 PM CDT 06/26/2023 1:02 PM CDT Lisbet KEEN CHEMISTRY [facility] [address] [place] [address], * MR HEAD BRAIN WO (06/26/2023 11:20 [...] 12:02:17 PM (Electronically Signed) Procedure Note Kaelyn Tanner, DO - 06/26/2023 For Patients: As a result of the 21st Century Cures Act, medical imagingexams and procedure [...] normal variant ( R in aVL , Wiliam product ) Abnormal ECG When compared with ECG of 04-JUN-2023 10:45, Criteria for Septal infarct are no longer Present No significant change was found BEYOND NOW Ventricular Rate 70 BPM BEYOND NOW Atrial Rate 70 BPM BEYOND NOW P-R Interval 182 ms BEYOND NOW QRS Duration 98 ms BEYOND NOW QT 420 ms BEYOND NOW QTc 453 ms BEYOND NOW P [place] 37 degrees BEYOND NOW R [place] -31 degrees BEYOND NOW T [place] 46 degrees BEYOND NOW 06/26/2023 2:40 AM CDT 06/26/2023 7:24 PM CDT Narrative [facility] NOW - 06/26/2023 7:24 PM CDT Test Indication: Stat Quyen Worley MD EKG ORD [place] NOW [place], [place] * SCAN-CARDIAC STRIP (06/26/2023 12:01 AM CDT) Scanner OTHER * (ABNORMAL) CBC WITH AUTO DIFFERENTIAL (06/26/2023 12:01 AM CDT) Only the most recent of2 resultswithin the time period is included. WHITE BLOOD COUNT 7.1 4.5 - 11.0 thou/cu mm 06/26/2023 12:13 AM CDT [facility] RED BLOOD COUNT 2.54(L) 4.00 - 5.20 mil/cu mm 06/26/2023 12:13 AM CDT [facility] HEMOGLOBIN 7.6(L) 12.0 - 16.0 g/dL 06/26/2023 12:13 AM CDT [facility] HEMATOCRIT 22.5(L) 33.0 - 51.0 % 06/26/2023 12:13 AM CDT [facility] MCV 89 80 - 100 fL 06/26/2023 12:13 AM CDT [facility] MCH 29.9 26.0 - 34.0 pg 06/26/2023 12:13 AM CDT [facility] MCHC 33.8 32.0 - 36.0 g/dL 06/26/2023 12:13 AM CDT [facility] RDW 16.1(H) 11.5 - 15.5 % 06/26/2023 12:13 AM [facility] PLATELET COUNT 279 140 - 440 thou/cu mm 06/26/2023 12:13 AM [facility] MPV 9.6 6.5 - 11.0 fL 06/26/2023 12:13 AM [facility] NRBC 0.0 % 06/26/2023 12:13 AM [facility] ABS NRBC 0.0 thou /cu mm 06/26/2023 12:13 AM [facility] % NEUT 73.9 % 06/26/2023 12:13 AM [facility] % LYMPH 16.3 % 06/26/2023 12:13 AM [facility] % MONO 9.3 % 06/26/2023 12:13 AM [facility] % EOS 0.0 % 06/26/2023 12:13 AM [facility] % BASO 0.1 % 06/26/2023 12:13 AM [facility] % IMMATURE GRAN (METAS,MYELOS,WA OS) 0.4 % 06/26/2023 12:13 AM [facility] ABSOLUTE NEUTROPHILS 5.3 1.7 - 7.0 thou/cu mm 06/26/2023 12:13 AM [facility] ABSOLUTE LYMPHOCYTES 1.2 0.9 - 2.9 thou/cu mm 06/26/2023 12:13 AM [facility] ABSOLUTE MONOCYTES 0.7 <0.9 thou/cu mm 06/26/2023 12:13 AM [facility] ABSOLUTE EOSINOPHILS 0.0 <0.5 thou/cu mm 06/26/2023 12:13 AM [facility] ABSOLUTE BASOPHILS 0.0 <0.3 thou/cu mm 06/26/2023 12:13 AM [facility] ABSOLUTE IMMATURE GRANULOCYTES(MET ,MYELOS,PROS) 0.0 <0.3 thou/cu mm 06/26/2023 12:13 AM CDT [facility] Blood BLOOD SPECIMEN / Unknown Non-Lab Venipuncture / Unknown 06/26/2023 12:01 AM CDT 06/26/2023 12:09 AM [address]T [address] [facility] HEMATOLOGY Performing Organization Address City/[facility]/ZIP Co de Phone Number [facility] [address] [place] [address], * LACTATE VENOUS (06/26/2023 12:01 AM CDT) Only the most recent of2 resultswithin the time period is included. LACTATE,VENOUS 1.5 0.5 - 2.0 mmol/L 06/26/2023 12:43 AM CDT [facility] Blood BLOOD SPECIMEN / Unknown Non-Lab Venipuncture / Unknown 06/26/2023 12:01 AM CDT 06/26/2023 12:10 AM CDT Lisbet [facility] CHEMISTRY Performing Organization Address City/[facility] Co de Phone Number [facility] [address] [place] [address], * (ABNORMAL) PROCALCITONIN (06/26/2023 12:01 AM CDT) PROCALCITONIN 1.17(H) ng/ml 06/26/2023 3:00 AM CDT [facility] Blood BLOOD SPECIMEN / Unknown Non-Lab Venipuncture / Unknown 06/26/2023 12:01 AM CDT 06/26/2023 12:09 AM CDT Narrative [facility] - 06/26/2023 3:00 AM CDT Procalcitonin [...] concentrations < 2 ng/mL are obtained. Lisbet KEEN SEND OUTS [facility] [address] [place] [address], [place] * (ABNORMAL) TSH (06/26/2023 12:01 AM CDT) TSH 8.27(H) 0.27 - 4.20 uIU/mL 06/26/2023 12:48 AM CDT [facility] Blood BLOOD SPECIMEN / Unknown Non-Lab Venipuncture / Unknown 06/26/2023 12:01 AM CDT 06/26/2023 12:09 AM CDT Narrative [facility] - 06/26/2023 12:48 AM CDT In Adults, TSH values between 5.00 and 10.00 uIU/ml do not necessarily indicate the presence of Hypothyroidism. Correlation with clinical findings such as presence of goiter and/or Thyroperoxidase (TPO) Antibody may be helpful. For more information please refer to SRAVANTHI 2004; 291: 228-238. Lisbet KEEN CHEMISTRY [facility] [address] [place] [address], * (ABNORMAL) Protime - INR (06/26/2023 12:01 AM CDT) Only the most recent of2 resultswithin the time period is included. INR 1.3(H) <1.3 06/26/2023 12:24 AM CDT [facility] PROTIME 14.6(H) 10.3 - 12.3 sec 06/26/2023 12:24 AM CDT [facility] Blood BLOOD SPECIMEN / Unknown Non-Lab Venipuncture / Unknown 06/26/2023 12:01 AM CDT 06/26/2023 12:09 AM CDT Narrative [facility] - 06/26/2023 12:24 AM CDT ?Therapeutic [...] if the patient is on UFH. Lisbet CHRIS HEMATOLOGY Performing Organization Address City/[facility]/ZIP Co de Phone Number [facility] [address] [place] [address], * LIPASE (06/26/2023 12:01 AM CDT) LIPASE 49.8 13.0 - 60.0 IU/L 06/26/2023 12:48 AM CDT [facility] Blood BLOOD SPECIMEN / Unknown Non-Lab Venipuncture / Unknown 06/26/2023 12:01 AM CDT 06/26/2023 12:09 AM CDT Lisbet [address]jivar [facility] CHEMISTRY Performing Organization Address [facility]/ZIP Co de Phone Number [facility] [address] [place] [address], * (ABNORMAL) Hepatic Function Panel (06/26/2023 12:01 AM CDT) ALBUMIN 3.5(L) 4.0 - 4.9 g/dL 06/26/2023 12:48 AM CDT [facility] PROTEIN,TOTAL 6.6 6.0 - 8.0 g/dL 06/26/2023 12:48 AM CDT [facility] BILIRUBIN,TOTAL 0.4 0.0 - 1.2 mg/dL 06/26/2023 12:48 AM CDT [facility] BILIRUBIN,DIRECT <0.2 0.0 - 0.3 mg/dL 06/26/2023 12:48 AM CDT [facility] BILIRUBIN,INDIRE CT 06/26/2023 12:48 AM CDT [facility] Comment:Unable to calculate, Direct Bili <0.2 ALK PHOSPHATASE 73 35 - 104 IU/L 06/26/2023 12:48 AM CDT [facility] ALT (SGPT) 9(L) 10 - 35 IU/L 06/26/2023 12:48 AM CDT [facility] AST (SGOT) 18 10 - 35 IU/L 06/26/2023 12:48 AM CDT [facility] Blood BLOOD SPECIMEN / Unknown Non-Lab Venipuncture / Unknown 06/26/2023 12:01 AM CDT 06/26/2023 12:09 AM CDT Lisbet KEEN CHEMISTRY Performing Organization Address [facility] Co de Phone Number [facility] [address] [place] [address], * MRSA/SA PCR (06/25/2023 11:21 PM CDT) MRSA DNA PCR Negative Negative 06/26/2023 12:38 AM CDT [facility] STAPHYLOCOCCUS AUREUS PCR Negative Negative 06/26/2023 12:38 AM CDT [facility] Other SPECIMEN FROM INTERNAL NOSE / Unknown Non-Blood / Unknown 06/25/2023 11:21 PM CDT 06/25/2023 11:28 PM CDT Narrative [facility] - 06/26/2023 12:38 AM CDT Test result does not preclude MRSA or SA nasal colonization. Lisbet KEEN MICROBIOLOGY Performing Organization Address [facility] Co de Phone Number [facility] [address] [place] [address], * SCAN-CARDIAC STRIP (06/25/2023 9:55 PM CDT) [...] @ Jun 25 2023 10:03PM (Electronically Signed) [email or web address] Narrative 06/25/2023 10:03 PM CDT For Patients: [...] @ Jun 25 2023 10:03PM (Electronically Signed) [email or web address] Lisbet KEEN [facility] * SCAN-CARDIAC STRIP (06/25/2023 12:00 AM CDT) Narrative 06/25/2023 12:00 AM CDT Ordered by an unspecified provider. Other Clinical Staff OTHER * (ABNORMAL) CREATININE (06/12/2023 7:22 AM [employer]) eGFR 22(L) >90 mL/min/1.7 3m2 06/12/2023 7:52 [address] [facility] Comment:As of 2021, eG FR is calculated by the CKD-EPI creatinine equation without race adjustment. ??eGFR can be influenced by muscle mass, exercise, and diet. ??The reported eGFR is an estimation only and is only applicable if the renal function is stable. CREATININE 2.25(H) 0.50 - 0.90 mg/dL 06/12/2023 7:52 AM [facility] Blood BLOOD SPECIMEN / Unknown Arterial / Unknown 06/12/2023 7:22 AM [employer] 06/12/2023 7:27 AM [employer] Jazzmine Amin MD CHEMISTRY Performing Organization Address [facility]/ZIP Co de Phone Number [facility] SENDOUT INTERNAL ZIP [phone] [place] [phone] * CO2,TOTAL (06/12/2023 7:22 AM [employer]) CO2,TOTAL 29 22 - 29 mmol/L 06/12/2023 7:52 AM [facility] Blood BLOOD SPECIMEN / Unknown Arterial / Unknown 06/12/2023 7:22 AM [employer] 06/12/2023 7:27 AM [employer] Jazzmine Amin MD CHEMISTRY [facility] SENDOUT INTERNAL ZIP [phone] [place] [phone] * SCAN-CARDIAC STRIP (06/11/2023 10:34 AM [employer]) Scanner OTHER * SCAN-CARDIAC STRIP (06/11/2023 5:34 AM [employer]) Scanner OTHER * SCAN-CARDIAC STRIP (06/10/2023 10:21 PM [employer]) Scanner OTHER * SCAN-CARDIAC STRIP (06/10/2023 7:37 AM [employer]) Scanner OTHER * SCAN-CARDIAC STRIP (06/10/2023 4:24 AM [employer]) Scanner OTHER * SCAN-CARDIAC STRIP (06/09/2023 7:45 AM [employer]) Scanner OTHER * SCAN-CARDIAC STRIP (2023 3:18 PM [employer]) Scanner OTHER * SCAN-CARDIAC STRIP (2023 7:40 AM [employer]) Scanner OTHER * SCAN-CARDIAC STRIP (2023 12:26 AM [employer]) Scanner OTHER * SCAN-CARDIAC STRIP (06/07/2023 4:05 PM [employer]) Scanner OTHER * SCAN-CARDIAC STRIP (06/07/2023 10:43 AM [employer]) Scanner OTHER * SCAN-CARDIAC STRIP (06/06/2023 7:57 PM [employer]) Scanner OTHER * SCAN-CARDIAC STRIP (06/06/2023 5:10 PM [employer]) Scanner OTHER * SCAN-CARDIAC STRIP (06/06/2023 7:41 AM [employer]) Scanner OTHER * SCAN-CARDIAC STRIP (06/06/2023 4:28 AM [employer]) Scanner OTHER * TRANSFUSE RBC (NURSE COMMUNICATION ORDER) (06/05/2023 1:55 PM [employer]) Blood BLOOD SPECIMEN / Unknown Cesar Reddy MD NURSING BLOOD BANK * RBC W/O TYPE & SCREEN (06/05/2023 10:28 AM [employer]) Only the most recent of2 resultswithin the time period is included. QUANTITY 1 06/05/2023 10:28 AM [employer] [facility] BLOOD BANK Blood BLOOD SPECIMEN / Unknown 06/05/2023 10:14 AM [employer] Cesar Reddy MD BLOOD BANK Performing Organization Address [facility] Co de Phone Number [facility]OD [facility] [address] [place] [place] [phone] * RED BLOOD CELLS EA UNIT (06/05/2023 10:28 AM [employer]) Only the most recent of2 resultswithin the time period is included. CROSSMATCH Compatible Compatible [facility] BLOOD BANK PRODUCT BLOOD TYPE O Rh Positive [facility] BLOOD B[facility] PRODUCT ID NUMBER [id number] [facility] BLOOD BANK PRODUCT STATUS Transfused UNIT ED [facility] BLOOD BANK PRODUCT DESCRIPTION RBC -1 LR [facility] BLOOD B[facility] PRODUCT CODE [id number] [facility] BLOOD [facility] ISSUE DATE/TIME 06/05/23 10:30 [facility]OD [facility] Cesar Reddy MD BLOOD BANK Performing Organization Address [facility] Co de Phone Number [facility]OD [facility] [address] [place] [place] [phone] * ENDOSCOPY (06/05/2023 10:24 AM [employer]) 06/05/2023 10:2 4 AM [employer] Narrative Transcriptions RamboMichael Duffy MD - 06/05/2023 11:57 AM CST Patient Name: Cynthia Ewanga Procedure Date: 06/05/2023 Gender: Female Date of : 1945 Admit Type: Inpatient Procedure: Upper GI endoscopy Proceduralist: Michael Ricks MD Indications/Pre-Op Diagnosis: Hematemesis Medications: Propofol per Anesthesia Procedure Description: The patient had risks, benefits and alternatives explained to andgave informed consent. The patient had a stable cardiopulmonary status and judged an adequate candidate for conscious sedation. The endoscope [id number] was introduced through the mouth, and advanced [...] ORD * SCAN-CARDIAC STRIP (06/05/2023 7:49 AM [employer]) Scanner OTHER * TRANSFUSE RBC (NURSE COMMUNICATION ORDER) (06/05/2023 5:33 AM [employer]) Blood BLOOD SPECIMEN / Unknown Hanna Peterson NP NURSING BLOOD BANK * SCAN-CARDIAC STRIP (06/04/2023 5:13 PM [employer]) Scanner OTHER * CT Abdomen Pelvis w IV (Oral Contrast = NO) (06/04/2023 2:14 PM [employer]) Anatomical Region Laterality Modality Abdomen, Pelvis, AORTA, LIVER, SPLEEN Computed Tomography 06/04/2023 2:14 PM [employer] Impressions 06/04/2023 2:24 PM [employer] 1. ??No acute findings in the abdomen and pelvis. Narrative 06/04/2023 2:24 PM [employer] For Patients: As a result of the Century Cures Act, medical imaging exams and procedure reports are released immediately into your electronic medical record. You may view this report before your referring provider. If you have questions, please contact your health care provider. EXAM: CT ABDOMEN PELVIS W LOCATION: [facility] MEDICAL IMAGING DATE: 06/04/2023 INDICATION: Abdominal [...] provider. EXAM: CT ABDOMEN PELVIS W LOCATION: [facility] MEDICAL IMAGING DATE: 06/04/2023 INDICATION: Abdominal [...] TYPE AND SCREEN ONLY (06/04/2023 10:43 AM [employer]) ABORH O Rh Positive 06/04/2023 11:49 AM [facility] BLOOD BANK ANTIBODY SCREEN Negative Negative 06/04/2023 11:49 AM [facility] BLOOD BANK SPECIMEN EXPIRATION DATE/TIME 06/07/23 23:59 06/04/2023 11:49 AM [facility] [employer] [facility] BLOOD BANK Blood BLOOD SPECIMEN / Unknown Non-Lab Venipuncture / Unknown 06/04/2023 10:43 AM [employer] 06/04/2023 10:55 AM [employer] Lynne Hurt MD BLOOD BANK [facility] BLOOD BANK [address] [place] [address] * EXTRA TUBE LAVENDER (06/04/2023 10:15 AM [employer]) Blood BLOOD SPECIMEN / Unknown Venipuncture / Unknown 06/04/2023 10:15 AM SERGEANT MISSILE CREWMAN 06/04/2023 11:56 AM SERGEANT MISSILE CREWMAN Laboratory LABORATORY [facility] LABORATORY SENDOUT INTERNAL ZIP [id number] [address] [place] [address] * SCAN-BONE DENSITOMETRY DEXA (12/02/2018 12:00 AM CDT) Anatomical Region Laterality Modality Other Scanner OTHER from Last 3 Months or Most Recently Relevant to Health Maintenance Advance Directives Documents on File Type Date Recorded Patient Field Producer Expl anation POLST 12/01/2021 * Full Code [...] Comments Code Status Discussion: Discussed Care Teams General Office Clerk Relationship Specialty Start Date End Date Erickson Vinson MD [address] [place] [address] PCP - General Family Practice 02/01/23
--- OUTSIDE RECORDS SUMMARY | 2023-08-16 09:16 | XMS_ITS | Referral Summary ---
Author Name Unknown Organization [facility] Address [address] [place] [address] Care Team Providers Care Music Director Name Role Phone Eusebia Whitaker Ann Primary Care Provider [phone] Allergies No known active allergies Medications Medication [...] - Plan of Treatment Not on file Care Teams Music Director Relationship Specialty Start Date End Date Eusebia Whitaker [facility] [address] [place] [address] PCP - General Family Practice 09/25/19
--- OUTSIDE RECORDS SUMMARY | 2023-08-16 09:16 | XMS_ITS | Clinical Summary ---
Author Name Unknown Organization [facility] Address [address] [place] [address] Care Team Providers Care Facility Assistant Name Role Phone Eusebia Whitaker Ann Primary Care Provider [phone] Allergies No known active allergies Medications Medication [...] of Treatment Not on file Care Teams Facility Assistant Relationship Specialty Start Date End Date Eusebia Whitaker [facility] [address] [place] [address] PCP - General Family Practice 09/25/19
--- OUTSIDE RECORDS SUMMARY | 2023-08-16 09:16 | XMS_ITS | Clinical Summary ---
Author Name Unknown Organization [facility] Address [address] [place] [address] Phone Care Team Providers Care Garment Sewing Machine Operator Name Role Phone Eusebia Whitaker MD Primary Care Provider [phone] Allergies Active Allergy Reactions Criticality Noted Date [...] 3 (moderate) 02/07 Proteinuria 02/07/2019 Anemia 02/07/2019 half-way current use of non-steroidal anti-infl ammatories 02/07/2019 [...] Influenza Vaccine (Season Ended) 2023 Care Teams Garment Sewing Machine Operator Relationship Specialty Start Date End Date Eusebia Whitaker MD [address] [place] [address] PCP - General Family Medicine 11/24/19
--- OUTSIDE RECORDS SUMMARY | 2023-08-16 09:16 | XMS_ITS | Clinical Summary ---
Author Name Unknown Organization [facility] Address [address] [place] [address] Care Team Providers Care District Sales Representative Name Role Phone Unavailable Primary Care Provider Unavailabl e Source Comments Patient records contain information from all sites at [facility]. For routine questions regarding patient records, call [phone] during business hours, M-F 8:00 AM - 5:00 PM Central Time. 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 Urinary Tract Infection [...] Date Recorded Dental: Regular Dentist Unknown 06/03/19 Sex and Gender Information Value Date Recorded [...] (145 lb 11.6 oz) 023 12:20 PM IMPLEMENTATION PROJECT COORDINATOR Height 165.1 cm (5' 5) 2022 12:3 0 PM IMPLEMENTATION PROJECT COORDINATOR Body Mass Index 24.25 2022 12:30 PM IMPLEMENTATION PROJECT COORDINATOR Plan of Treatment Health Maintenance Due Date Last Done Comments Office Visit for Blood Press ure Check / Re-check 1945 Hepatitis B Vaccines (1 of 3 - Risk Dialysis 4-dose series) 1963 Zoster Vaccines (1 of 2) 11/17/2015 09/22/2015 Influenza Vaccine (#1) 2023 , 01/12/2021, 01/20/2020, Additional history exists Depression Screening (Annual PHQ-2) 04/09/2023 Fall Risk Screen (Annual) 04/09/2023 COVID-19 Vaccine (6 - 2022-2 4 season) 2023 01/30/2023, 01/16/2022, [...] 16, 01/20/2010 Medical Devices Implanted Type Area Extruding Department Supervisor Device Identifier Shelf Expiration Date Model / Serial / Lot [facility] Sm - [id number] Implanted:Qty : 1 on 06/06/2022 by Garfield Pavon M.D. at [facility] Hardware e.g. pins/screws/ rods Left: Arm Ethicon LT100 / / Clp Hrzn Ti 6 Clp Anthony - [id number] Implanted:Qty : 1 on 06/06/2022 by Garfield Pavon M.D. at [facility] Hardware e.g. pins/screws/ rods Left: Arm [employer] [id number] / / Clp [facility] Ti - [id number] Implanted:Qty : 1 on 06/11/2022 by Garfield Pavon M.D. at [facility] Hardware e.g. pins/screws/ rods Ethicon [id number] 02/06/2027 LT100 / / [id number] Clp Hrzn Ti 6 Clp Md Anthony - [id number] Implanted:Qty : 1 on 06/11/2022 by Garfield Pavon M.D. at [facility] Hardware e.g. pins/screws/ rods [employer] [id number] 11/28/2026 [id number] / / [id number] Clp Hrzn Ti 6 Clp Md Anthony - [id number] Implanted:Qty : 1 on 06/12/2022 by Garfield Pavon M.D. at [facility] Hardware e.g. pins/screws/ rods [employer] [id number] 11/28/2026 [id number] / / [id number] Clp Lgc Lgt Ti Sm - [id number] Implanted:Qty : 1 on 06/12/2022 by Garfield Pavon M.D. at [facility] Hardware e.g. pins/screws/ rods Ethicon [id number] 02/06/2027 LT100 / / [id number] [facility] Vsc 0.88 - [id number] Implanted:Qty : 1 on 06/12/2022 by Garfield Pavon M.D. at [facility] Mesh or Patch Synovis 03/15/2023 [id number] / / [id number] Explanted Type Area Extruding Department Supervisor Device Identifier Shelf Expiration Date Model / Serial / Lot [facility] 4-7x45 - [id number] - [id number] Implanted:Qty : 1 on 06/06/2022 by Garfield Pavon M.D. at [facility] Explanted:Qty : 1 on 06/12/2022 by Alejandro Keller M.B.B.SGatito at [facility] Vascular Graft Left: Arterial [place] 11/01/2025 [id number] / [id number] / Description:Left upper extre mity graft Procedures Procedure Name Priority Date/Time Associated Diagnosis Comments EXTI POTASSIUM, S/P Routine 07/08/2023 1 2:15 PM CDT EXTI RENAL FUNCTION PANEL, S Routine 07/07/2023 12:12 PM CDT from Last 3 Months or Most Recently Relevant to Health Maintenance Advance Directives For more information, please contact: [phone] * Full Code (Latest Code Status on [...]
--- OUTSIDE RECORDS SUMMARY | 2023-08-16 09:16 | XMS_ITS | Referral Summary ---
Author Name Unknown Organization [facility] Address [address] [place] [address] Care Team Providers Care Cut Off Sawyer Name Role Phone Unavailable Primary Care Provider Unavailabl e Source Comments Patient records contain information from all sites at [facility]. For routine questions regarding patient records, call [phone] during business hours, M-F 8:00 AM - 5:00 PM Central Time. 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 at [facility] Hardware e.g. pins/screws/ rods Left: Arm Ethicon LT100 / / Clp Hrzn Ti 6 Clp Md Anthony - [id number] Implanted:Qty : 1 on 06/06/2022 by Garfield Pavon M.D. at [facility] Hardware e.g. pins/screws/ rods Left: Arm [employer] [id number] / / Clp Lgc Lgt Ti Sm - [id number] Implanted:Qty : 1 on 06/11/2022 by Garfield Pavon M.D. at [facility] Hardware e.g. pins/screws/ rods Ethicon [id number] 02/06/2027 LT100 / / [id number] Clp Hrzn Ti 6 Clp Md Anthony - [id number] Implanted:Qty : 1 on 06/11/2022 by Garfield Pavon M.D. at [facility] Hardware e.g. pins/screws/ rods [employer] [id number] 11/28/2026 [id number] / / [id number] Clp Hrzn Ti 6 Clp Md Anthony - [id number] Implanted:Qty : 1 on 06/12/2022 by Garfield Pavon M.D. at [facility] Hardware e.g. pins/screws/ rods [employer] [id number] 11/28/2026 [id number] / / [id number] Clp Lgc Lgt Ti Sm - [id number] Implanted:Qty : 1 on 06/12/2022 by Garfield Pavon M.D. at [facility] Hardware e.g. pins/screws/ rods Ethicon [id number] 02/06/2027 LT100 / / 160C87 Gr Vsc 0.88 - [id number] Implanted:Qty : 1 on 06/12/2022 by Garfield Pavon M.D. at [facility] Mesh or Patch Synovis 03/15/2023 [id number] / / [id number] Explanted Type Area Regenerator Operator Device Identifier Shelf Expiration Date Model / Serial / Lot [place] [facility] 4-7x45 - [id number] - [id number] Implanted:Qty : 1 on 06/06/2022 by Garfield Pavon M.D. at [facility] Explanted:Qty : 1 on 06/12/2022 by Alejandro Keller M.B.BGatitoSGatito at [facility] Vascular Graft Left: Arterial [place] 11/01/2025 [id number] / [id number] 022 / Description:Left upper extre mity graft Procedures Procedure Name Priority Date/Time Associated Diagnosis Comments EXTI POTASSIUM, S/P Routine 07/08/2023 1 2:15 PM CDT EXTI RENAL FUNCTION PANEL, S Routine 07/07/2023 12:12 PM CDT from Last 3 Months or Most Recently Relevant to Health Maintenance Advance Directives For more information, please contact: [phone] * Full Code (Latest Code Status on [...]
--- OUTSIDE RECORDS SUMMARY | 2023-08-16 09:16 | XMS_ITS ---
Author Name Unknown Organization [facility] Address [address] [place] [address] Care Team Providers Care Adapted Physical Education Aide Name Role Phone Unavailable Unavailable Unavailable Surgery Details Not on file Complications Check Surgery Details section. Procedure Estimated Blood Loss Check Surgery Details section. Procedure Findings Check Surgery Details section. Procedure Specimens Taken Check Surgery Details section.
== END 2023-08-16 09:12 | disposition home or self-care (01) ==
LOC: WOUND 09:11
PROVIDERS: PCP Family Medicine; Visit Provider Nurse Practitioner Family
DX: I73.9 Peripheral vascular disease, unspecified (principal); L97.225 Non-pressure chronic ulcer of left calf with muscle involvement without evidence of necrosis; Z99.3 Dependence on wheelchair
CPT/HCPCS: 97602; G0463

== ENCOUNTER 2023-08-30 10:35 | Outpatient (CLI) | payer OTHER, SELFPAY ==
--- OUTSIDE RECORDS SUMMARY | 2023-08-30 10:39 | XMS_ITS | Encounter Summary ---
Author Organization [facility] Address [address] [place] [address] Care Team Providers Care Nail Cutter Name Role Phone Unavailable Primary Care Provider Unavailabl e Encounter Details Date Type Department Care Team (Late st Contact Info) Description 08/21/2023 Orders Only Division of Nephrology and Hypertension, [facility], in [place], [place] [address] [place] [phone] Jenna Neri, GLADYS, C.N.P., M.S.N. [address] [place] [phone] Social History Tobacco Use Types Packs/Day Years [...]
--- OUTSIDE RECORDS SUMMARY | 2023-08-30 10:39 | XMS_ITS ---
Author Organization [facility] Address [address] [place] [address] Care Team Providers Care Learning Disabilities Resource Teacher Name Role Phone Unavailable Primary Care Provider [...] tablet Take 1 tablet by mouth daily. 2 Active oxyCODONE (ROXICODONE) 5 mg immediate release tablet Take 5 mg by mouth every 4 (four) hours. Active Eliquis 2.5 mg tablet Take 2.5 mg by mouth 2 (two) times a day. 3 Active nystatin (NYSTOP) 100,000 unit/gram powder Apply 1 application topically 2 (two) times a day. Abdominal folds 3 Active acetaminophen (TYLENOL) 325 mg tablet Take 650 mg by mouth every 8 (eight) hours as needed for pain. Active amoxicillin (AMOXIL) 500 mg capsule Take 1,000 mg by mouth as directed. Take 2 tablets by mouth 30-60 min prior to any dental procedure. 3 Active sennosides (senna) 8.6 mg tablet Take [...] before dialysis for SBP less than 120). 3 Active atorvastatin (LIPITOR) 20 mg tablet Take 1 tablet (20 mg total) by mouth at bedtime. 3 Active magnesium oxide (MAG-OX) 400 mg (241.3 mg magnesium) tablet Take 1 tablet (400 mg total) by mouth 2 (two) times a day before breakfast and dinner. [address] tablet Take 1 tablet (81 mg total) by mouth daily. 3 Active ondansetron ODT (ZOFRAN-ODT) 4 mg disintegrating tablet Dissolve 1 tablet (4 mg total) in the mouth every 8 (eight) hours as needed for nausea or vomiting. 20 tablet 3 Active metoprolol tartrate (LOPRESSOR) 25 mg tablet Take 0.5 tablets (12.5 mg total) by mouth as directed. Take daily after dialysis on (dialysis days) and BID non-dialysis days 150 tablet 3 3 11/29/19 24 Active mirtazapine (REMERON) 15 mg tablet Take 1 tablet (15 mg total) by mouth at bedtime. 90 tablet 3 4 08/21/19 25 Active mirtazapine (REMERON) 15 mg tablet Take 15 mg by mouth at bedtime. 3 08/21/19 24 Discontinued mirtazapine (REMERON) 7.5 mg tablet Take 1 tablet (7.5 mg total) by mouth at bedtime. 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
--- OUTSIDE RECORDS SUMMARY | 2023-08-30 10:39 | XMS_ITS | Referral Summary ---
Author Organization [facility] Address [address] [place] [address] Care Team Providers Care Rn Advanced Name Role Phone Eusebia Whitaker Primary Care Provider [phone] Allergies No known active allergies Medications Medication [...] of Treatment Not on file Care Teams Rn Advanced Relationship Specialty Start Date End Date Eusebia Whitaker [facility] [address] [place] [address] PCP - General Family Practice 09/25/19
--- OUTSIDE RECORDS SUMMARY | 2023-08-30 10:39 | XMS_ITS | Clinical Summary ---
Author Organization [facility] Address [address] [place] [address] Phone Care Team Providers Care Orthopaedic Physician Assistant Name Role Phone Eusebia Whitaker MD Primary Care Provider [phone] Allergies Active Allergy Reactions Criticality Noted Date [...] 3 (moderate) 02/07 Proteinuria 02/07/2019 Anemia 02/07/2019 retirement current use of non-steroidal anti-infl ammatories 02/07/2019 [...] Influenza Vaccine (Season Ended) 2023 Care Teams Orthopaedic Physician Assistant Relationship Specialty Start Date End Date Eusebia Whitaker MD [address] [place] [address] PCP - General Family Medicine 11/24/19
--- OUTSIDE RECORDS SUMMARY | 2023-08-30 10:39 | XMS_ITS | Encounter Summary ---
Author Organization [facility] Address [address] [place] [address] Care Team Providers Care Precise Winder Name Role Phone Unavailable Primary Care Provider Unavailabl e Encounter Details Date Type Department Care Team (Late st Contact Info) Description 08/20/2023 Orders Only Division of Nephrology and Hypertension, [facility], in [place], [place] [address] [place] [phone] Jenna Neri, GLADYS, C.N.P., M.S.N. [address] [place] [phone] Social History Tobacco Use Types Packs/Day Years [...]
--- OUTSIDE RECORDS SUMMARY | 2023-08-30 10:39 | XMS_ITS | Clinical Summary ---
Author Organization [facility] Address [address] [place] [address] Care Team Providers Care Filling Winder Name Role Phone Unavailable Primary Care Provider Unavailabl e Source Comments Patient records contain information from all sites at [facility]. For routine questions regarding patient records, call [phone] during business hours, M-F 8:00 AM - 5:00 PM Central Time. 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 08/20/2023 Orders Only Division of Nephrology and Hypertension, [place], [place] [address] [place] [address] Jenna Neri APRN, C.N.P., M.S.N. from Last 3 Months Social [...] (145 lb 11.6 oz) 023 12:20 PM ACCESS SERVICES ASSISTANT Height 165.1 cm (5' 5) 2022 12:3 0 PM ACCESS SERVICES ASSISTANT Body Mass Index 24.25 2022 12:30 PM ACCESS SERVICES ASSISTANT Plan of Treatment Health Maintenance Due Date [...] 16, 01/20/2010 Medical Devices Implanted Type Area Rn Examiner Device Identifier Shelf Expiration Date Model / Serial / Lot Clp Lgc Lgt Ti Sm - [id number] Implanted:Qty : 1 on 06/06/2022 by Garfield Pavon M.D. at [facility] Hardware e.g. pins/screws/ rods Left: Arm Ethicon LT100 / / Clp Hrzn Ti 6 Clp Md Anthony - [id number] Implanted:Qty : 1 on 06/06/2022 by Garfield Pavon M.D. at [facility] Hardware e.g. pins/screws/ rods Left: Arm [employer] [id number] / / Clp Lgc Lgt Ti Sm - [id number] Implanted:Qty : 1 on 06/11/2022 by Garfield Pavon M.D. at [facility] Hardware e.g. pins/screws/ rods Ethicon [id number] 02/06/2027 LT100 / / 160C87 Clp Hrzn Ti 6 Clp Md Anthony - [id number] Implanted:Qty : 1 on 06/11/2022 by Garfield Pavon M.D. at [facility] Hardware e.g. pins/screws/ rods [employer] [id number] 11/28/2026 [id number] / / [id number] Clp Hrzn Ti 6 Clp Md Anthony - [id number] Implanted:Qty : 1 on 06/12/2022 by Garfield Pavon M.D. at [facility] Hardware e.g. pins/screws/ rods [employer] [id number] 11/28/2026 [id number] / / [id number] Clp Lgc Lgt Ti Sm - [id number] Implanted:Qty : 1 on 06/12/2022 by Garfield Pavon M.D. at [facility] Hardware e.g. pins/screws/ rods Ethicon [id number] 02/06/2027 LT100 / / 160C87 Gr Vs 0.88 - [id number] Implanted:Qty : 1 on 06/12/2022 by Garfield Pavon M.D. at [facility] Mesh or Patch Synovis 03/15/2023 [id number] / / [id number] Explanted Type Area Rn Examiner Device Identifier Shelf Expiration Date Model / Serial / Lot Roseann Prp 4-7x45 - [id number] - [id number] Implanted:Qty : 1 on 06/06/2022 by Garfield Pavon M.D. at [facility] Explanted:Qty : 1 on 06/12/2022 by Alejandro Keller M.B.BGatitoSGatito at [facility] Vascular Graft Left: Arterial [place] 11/01/2025 [id number] / [id number] / Description:Left upper extre mity graft Procedures Procedure Name Priority Date/Time Associated Diagnosis Comments EXTI POTASSIUM, S/P Routine 07/08/2023 1 2:15 PM CDT EXTI RENAL FUNCTION PANEL, S Routine 07/07/2023 12:12 PM CDT from Last 3 Months or Most Recently Relevant to Health Maintenance Advance Directives For more information, please contact: [phone] * Full Code (Latest Code Status on [...]
--- OUTSIDE RECORDS SUMMARY | 2023-08-30 10:39 | XMS_ITS | Clinical Summary ---
Author Organization [facility] Address [address] [place] [address] Care Team Providers Care Customer Support Associate Name Role Phone Eusebia Whitaker Primary Care Provider [phone] Allergies No known active allergies Medications Medication [...] of Treatment Not on file Care Teams Customer Support Associate Relationship Specialty Start Date End Date Eusebia Whitaker [facility] [address] [place] [address] PCP - General Family Practice 09/25/19
--- OUTSIDE RECORDS SUMMARY | 2023-08-30 10:39 | XMS_ITS | Referral Summary ---
Author Organization [facility] Address [address] [place] [address] Care Team Providers Care Pharmacy Retail Support Specialist Name Role Phone Unavailable Primary Care Provider Unavailabl e Source Comments Patient records contain information from all sites at [facility]. For routine questions regarding patient records, call [phone] during business hours, M-F 8:00 AM - 5:00 PM Central Time. Record requests for emergency care only can be directed to [phone] at any time.[facility] Encounters Date Type Department Care Team Description 08/21/2023 Orders Only Division of Nephrology and Hypertension, [facility], in [place], [place] [address] [place] [address] Jenna Neri APRN, C.N.P., M.S.N. 08/20/2023 Orders Only Division of Nephrology and Hypertension, [facility], in [place], [place] [address] [place] [address] Jenna Neri APRN, C.N.P., M.S.N. from Last 3 Months Allergies [...] mouth at bedtime. 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 at [facility] Hardware e.g. pins/screws/ rods Left: Arm Ethicon LT100 / / Clp Hrzn Jake 6 Dave Dempsey Anthony - [id number] Implanted:Qty : 1 on 06/06/2022 by Garfield Pavon M.D. at [facility] Hardware e.g. pins/screws/ rods Left: Arm [employer] [id number] / / Clp Lgc Lgt Ti - [id number] Implanted:Qty : 1 on 06/11/2022 by Garfield Pavon M.D. at [facility] Hardware e.g. pins/screws/ rods Ethicon [id number] 02/06/2027 LT100 / / 160C87 Clp Hrzn Ti 6 Clp Anthony - [id number] Implanted:Qty : 1 on 06/11/2022 by Garfield Pavon M.D. at [facility] Hardware e.g. pins/screws/ rods [employer] [id number] 11/28/2026 [id number] / / [id number] Clp Hrzn Ti 6 Clp Md Anthony - [id number] Implanted:Qty : 1 on 06/12/2022 by Garfield Pavon M.D. at [facility] Hardware e.g. pins/screws/ rods [employer] [id number] 11/28/2026298950 / / [id number] Clp Lgc Lgt Ti Sm - [id number] Implanted:Qty : 1 on 06/12/2022 by Garfield Pavon M.D. at [facility] Hardware e.g. pins/screws/ rods Ethicon [id number] 02/06/2027 LT100 / / 160C87 [facility] 0.88 - [id number] Implanted:Qty : 1 on 06/12/2022 by Garfield Pavon M.D. at [facility] Mesh or Patch Synovis 03/15/2023 [id number] / / [id number] Explanted Type Area Custodian Athletic Equipment Device Identifier Shelf Expiration Date Model / Serial / Lot [facility] 4-7x45 - [id number] - [id number] Implanted:Qty : 1 on 06/06/2022 by Garfield Pavon M.D. at [facility] Explanted:Qty : 1 on 06/12/2022 by Alejandro Keller M.BGatitoBGatitoSGatito at [facility] Vascular Graft Left: Arterial [place] 11/01/2025 [id number] / [id number] / Description:Left upper extre mity graft Procedures Procedure Name Priority Date/Time Associated Diagnosis Comments EXTI POTASSIUM, S/P Routine 07/08/2023 1 2:15 PM CDT EXTI RENAL FUNCTION PANEL, S Routine 07/07/2023 12:12 PM CDT from Last 3 Months or Most Recently Relevant to Health Maintenance Advance Directives For more information, please contact: [phone] * Full Code (Latest Code Status on [...]
--- OUTSIDE RECORDS SUMMARY | 2023-08-30 10:39 | XMS_ITS ---
Author Organization [facility] Address [address] [place] [address] Care Team Providers Care Account Support Associate Name Role Phone Unavailable Unavailable Unavailable Surgery Details Not on file Complications Check Surgery Details section. Procedure Estimated Blood Loss Check Surgery Details section. Procedure Findings Check Surgery Details section. Procedure Specimens Taken Check Surgery Details section.
--- OUTSIDE RECORDS SUMMARY | 2023-08-30 10:39 | XMS_ITS | Clinical Summary ---
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 PAF (paroxysmal atrial [...] Department Care Team Description 4 Orders Only [facility] Scanner 1 scan: (1-Ord) [facility], TRANSFORMAINAL EPIDURAL THERAPEUTIC INJ, 08/07/2023 4 12:34 PM CDT Anesthesia Event [facility] [address] [place] [address] Jd Reese DO Meyer, Ava, TACKER OFF Student 4 11:45 AM CDT - 4 12:45 PM CDT Surgery [facility] [address] [place] [address] Kavin Fournier MD ESOPHAGOGASTRODUODENOSCOPY 4 Travel 4 9:06 PM CDT - 4 1:00 PM CDT Hospital Encounter [facility] [address] [place] [address] Lion Granados MD Weise, Lalita Cisneros MD [facility], [facility] Hospitalists Of Vikram Dias MD Kohlmeyer, Lore Trent MD Leg pain, bilateral (Primary Dx); HTN (hypertension); Multiple wounds of skin; Cerebrovascular accident (CVA), unspecified mechanism (HC); Constipation, unspecified constipation type; Open wound of left lower extremity, subsequent encounter; Difficulty sleeping; Pain Discharge Disposition: [facility] 4 10:48 AM [facility] Anesthesia Event [address] [address] Cesar Reddy MD McNeely, Melissa H, CRNA 4 10:25 AM [facility] - 4 11:08 AM [facility] Surgery [address] [address] Michael Ricks MD ESOPHAGOGASTRODUODENOSCOPY 4 9:10 AM [facility] - 4 11:30 AM [facility] Hospital Encounter [address] [address] Lynne Hurt MD [facility], Hospitalist Mallory Garcia MD Sahni, Nishant, MBBS Hasan, LEONILA Singh Saadia Zafar, MD Gastrointestinal hemorrhage, unspecified gastrointestinal hemorrhage type (Primary Dx); PAF (paroxysmal atrial fibrillation) (HC); Multiple wounds of skin; Wound of left lower extremity, subsequent encounter; HTN (hypertension) Discharge Disposition: [facility] 4 Travel from Last 3 Months [...] Timed 06/29/2023 12:56 PM CDT SOLUBLE TRANSFERRIN DISABILITY SERVICES COORDINATOR JULY 2023 4:19 AM CDT FERRITIN JULY [...] CDT CO2,TOTAL Early AM 06/12/2023 7:22 AM [facility] WHITE BLOOD COUNT Early AM 06/12/2023 7:22 AM [facility] HEMOGLOBIN Early AM 06/12/2023 7:22 AM [facility] CREATININE Early AM 06/12/2023 7:22 AM [facility] POTASSIUM Early AM 06/12/2023 7:22 AM [facility] SODIUM Early AM 06/12/2023 7:22 AM [facility] SCAN-CARDIAC STRIP 06/11/2023 10:34 AM [facility] CBC W PLT NO DIFF Today 06/11/2023 8:09 AM [facility] SCAN-CARDIAC STRIP 06/11/2023 5:34 AM [facility] SCAN-CARDIAC STRIP 06/10/2023 10:21 PM [facility] SCAN-CARDIAC STRIP 06/10/2023 7:37 AM [facility] CBC WITH AUTO DIFFERENTIAL Early AM 06/09 4:44 AM [facility] BASIC METABOLIC PANEL Early AM 06/10/2023 4:44 AM [facility] CBC WITH AUTO DIFFERENTIAL Early AM 06/09 4:44 AM [facility] SCAN-CARDIAC STRIP 06/10/2023 4:24 AM [facility] SCAN-CARDIAC STRIP 06/09/2023 7:45 AM [facility] SCAN-CARDIAC STRIP 2023 3:18 PM [facility] HEMOGLOBIN Timed 2023 12:11 PM [facility] SCAN-CARDIAC STRIP 2023 7:40 AM [facility] SCAN-CARDIAC STRIP 2023 12:26 AM [facility] HEMOGLOBIN Timed 2023 12:12 AM [facility] SCAN-CARDIAC STRIP 06/07/2023 4:05 PM [facility] HEMOGLOBIN Timed 06/07/2023 12:06 PM [facility] SCAN-CARDIAC STRIP 06/07/2023 10:43 AM [facility] BASIC METABOLIC PANEL Early AM 06/07/2023 5:02 AM [facility] HEMOGLOBIN Timed 06/07/2023 12:47 AM [facility] SCAN-CARDIAC STRIP 06/06/2023 7:57 PM [facility] SCAN-CARDIAC STRIP 06/06/2023 5:10 PM [facility] POTASSIUM Early AM 06/06/2023 8:45 AM [facility] HEMOGLOBIN Timed 06/06/2023 8:45 AM [facility] SCAN-CARDIAC STRIP 06/06/2023 7:41 AM [facility] SCAN-CARDIAC STRIP 06/06/2023 4:28 AM [facility] HEMOGLOBIN Timed 06/05/2023 9:18 PM [facility] HEMOGLOBIN Timed 06/05/2023 4:14 PM [facility] ESOPHAGOGASTRODUODENOSCOPY W ITH HEMOSTASIS 06/05/2023 10:43 AM [facility] Stephani kenzie tear ESOPHAGOGASTRODUODENOSCOPY 06/05 10:43 AM [facility] Stephani kenzie tear TRANSFUSE RBC (NURSE COMMUNICATION ORDER) STAT 06/05/2023 10:40 AM [facility] RBC W/O TYPE & SCREEN STAT 06/05/2023 10:28 AM [facility] RED BLOOD CELLS EA UNIT STAT 06/05/19 10:28 AM [facility] ENDOSCOPY 06/05/2023 10:24 AM [facility] SCAN-CARDIAC STRIP 06/05/2023 7:49 AM [facility] BASIC METABOLIC PANEL Early AM 06/05/2023 7:06 AM [facility] CBC W PLT NO DIFF Early AM 06/05/2023 7:06 AM [facility] HEMOGLOBIN Timed 06/05/2023 7:06 AM [facility] TRANSFUSE RBC (NURSE COMMUNICATION ORDER) STAT 06/05/2023 2:37 AM [facility] RBC W/O TYPE & SCREEN STAT 06/05/2023 1:36 AM [facility] RED BLOOD CELLS EA UNIT STAT 06/05/19 1:36 AM [facility] HEMOGLOBIN Timed 06/05/2023 12:15 AM [facility] XR CHEST 1 VIEW PORTABLE STAT 024 11:37 PM [facility] SCAN-CARDIAC STRIP 06/04/2023 5:13 PM [facility] HEMOGLOBIN Timed 06/04/2023 4:[address] ABDOMEN PELVIS W STAT 06/04/2023 2:14 PM [facility] HBSAG (HBS) JULY 06/04/2023 11:23 AM [facility] POTASSIUM STAT 06/04/2023 11:23 AM [facility] EKG 12 LEAD STAT 06/04/2023 10:45 AM [facility] TYPE & SCREEN STAT 06/04/2023 10:43 AM [facility] BLOOD CULTURE STAT 06/04/2023 10:43 AM [facility] BLOOD CULTURE STAT 06/04/2023 10:43 AM [facility] LACTATE VENOUS STAT 06/04/2023 10:43 AM [facility] EXTRA TUBE LAVENDER Today 06/04/2023 10:15 AM [facility] BASIC METABOLIC PANEL STAT 06/04/2023 10:12 AM [facility] PROTIME-INR STAT 06/04/2023 10:12 AM [facility] CBC W PLT NO DIFF STAT 06/04/2023 10:12 AM [facility] SCAN-BONE DENSITOMETRY DEXA 11/08 12:00 AM CDT from Last 3 Months or Most Recently Relevant to Health Maintenance Results * SCAN-OPERATIVE/PROCEDURE REPORT (08/07/2023 12:00 AM CDT) Scanner OTHER * (ABNORMAL) GLUCOSE METER (07/09/2023 6:23 AM CDT) Only the most recent of51 resultswithin the time period is included. GLUCOSE METER 143(H) 65 - 100 mg/dL 07/09/2023 6:24 AM CDT [facility] Blood BLOOD SPECIMEN / Unknown 07/09/2023 6:23 AM CDT 07/09/2023 6:24 AM CDT Vikram Dias MD CHEMISTRY Performing Organization Address City/[facility]/ZIP Co de Phone Number [facility] [address] [place] [address], [place] * Potassium AM (07/08/2023 12:15 PM CDT) Only the most recent of6 resultswithin the time period is included. POTASSIUM 4.2 3.5 - 5.1 mmol/L 07/08/2023 1:32 PM CDT [facility] Blood BLOOD SPECIMEN / Unknown Venipuncture / Unknown 07/08/2023 12:15 PM CDT 07/08/2023 12:23 PM CDT Lore Noble MD CHEMISTRY Performing Organization Address [facility] Co de Phone Number [facility] [address] [place] [address], [place] * WBC AM (07/08/2023 12:14 PM CDT) Only the most recent of5 resultswithin the time period is included. WHITE BLOOD COUNT 6.5 4.5 - 11.0 thou/cu mm 07/08/2023 12:47 PM CDT [facility] NRBC 0.0 % 07/08/2023 12:47 PM CDT [facility] ABS NRBC 0.0 thou /cu mm 07/08/2023 12:47 PM CDT [facility] Blood BLOOD SPECIMEN / Unknown Venipuncture / Unknown 07/08/2023 12:14 PM CDT 07/08/2023 12:23 PM CDT Lore Noble MD HEMATOLOGY Performing Organization Address City/[facility]/ZIP Co de Phone Number [facility] [address] [place] [address], [place] * EXTRA TUBE GOLD/SST (07/07/2023 12:12 PM CDT) Blood BLOOD SPECIMEN / Unknown Non-Lab Venipuncture / Unknown 07/07/2023 12:12 PM CDT 07/07/2023 12:18 PM CDT Lore Noble MD LABORATORY [facility] [address] [place] [address], * (ABNORMAL) RENAL FUNCTION PANEL (07/07/2023 12:12 PM CDT) Only the most recent of5 resultswithin the time period is included. SODIUM 135(L) 136 - 145 mmol/L 07/07/2023 12:45 PM CDT [facility] POTASSIUM 4.2 3.5 - 5.1 mmol/L 07/07/2023 12:45 PM CDT [facility] CHLORIDE 96(L) 98 - 107 mmol/L 07/07/2023 12:45 PM CDT [facility] CO2,TOTAL 25 22 - 29 mmol/L 07/07/2023 12:45 PM CDT [facility] ANION GAP 14 5 - 18 07/07/2023 12:45 PM CDT [facility] GLUCOSE 104(H) 70 - 99 mg/dL 07/07/2023 12:45 PM CDT [facility] CALCIUM 9.7 8.8 - 10.2 mg/dL 07/07/2023 12:45 PM CDT [facility] BUN 51(H) 8 - 23 mg/dL 07/07/2023 12:45 PM CDT [facility] CREATININE 2.63(H) 0.50 - 0.90 mg/dL 07/07/2023 12:45 PM CDT [facility] BUN/CREAT RATIO 19 10 - 20 12:45 PM CDT [facility] eGFR 18(L) >90 mL/min/1.7 3m2 07/07/2023 12:45 PM CDT [facility] Comment:As of 2021, eG FR is calculated by the CKD-EPI creatinine equation without race adjustment. ??eGFR can be influenced by muscle mass, exercise, and diet. ??The reported eGFR is an estimation only and is only applicable if the renal function is stable. PHOSPHORUS 3.2 2.5 - 4.5 mg/dL 07/07/2023 12:45 PM CDT [facility] ALBUMIN 3.6(L) 4.0 - 4.9 g/dL 07/07/2023 12:45 PM CDT [facility] Blood BLOOD SPECIMEN / Unknown Venipuncture / Unknown 07/07/2023 12:12 PM CDT 07/07/2023 12:17 PM CDT Lore Noble MD CHEMISTRY Performing Organization Address City/[facility]/ZIP Co de Phone Number [facility] [address] [place] [address], [place] * (ABNORMAL) HEMOGLOBIN (07/06/2023 3:52 PM CDT) Only the most recent of21 resultswithin the time period is included. HEMOGLOBIN 8.6(L) 12.0 - 16.0 g/dL 07/06/2023 4:16 PM CDT [facility] MCV 94 80 - 100 fL 07/06/2023 4:16 PM CDT [facility] Blood BLOOD SPECIMEN / Unknown Butterfly / Unknown 07/06/2023 3:52 PM CDT 07/06/2023 3:58 PM CDT Harjit Edwards MD HEMATOLOGY Performing Organization Address City/[facility]/ZIP Co de Phone Number [facility] [address] [place] [address], [place] * CT head without contrast (07/05/2023 [...] CORTISOL,TOTAL 8.6 ug/dL 07/05/2023 2:43 PM CDT [facility] Blood BLOOD SPECIMEN / Unknown Butterfly / Unknown 07/05/2023 1:30 PM CDT 07/05/2023 1:[address] [facility] - 07/05/2023 2:43 PM CDT Cortisol ?Morning Hours ?6:00 ??AM - 10:00 AM ?(4.8-19.5 ug/dL) Cortisol ?Afternoon Hours ??4:00 ??PM - ??8:00 PM ?(2.5-11.9 ug/dL) ? Biotin supplements may cause clinically significant interference for this test assay. ??If interference is suspected, it is strongly recommended that biotin is discontinued for at least one week prior to retesting. Lore oNble MD CHEMISTRY [facility] [address] [place] [address], [place] * (ABNORMAL) BLOOD GAS,VENOUS (07/05/2023 1:30 PM CDT) Only the most recent of2 resultswithin the time period is included. PH, VENOUS 7.38 7.32 - 7.43 07/05/2023 1:47 PM CDT [facility] PCO2, VENOUS 50 41 - 51 mmHg 07/05/2023 1:47 PM CDT [facility] PO2, VENOUS 22(L) 35 - 40 mmHg 07/05/2023 1:47 PM CDT [facility] HCO3,VENOUS 30(H) 22 - 29 mmol/L 07/05/2023 1:47 PM CDT [facility] BASE EXCESS, VENOUS, POCT 3.4(H) -2.0 - 3.0 07/05/2023 1:47 PM CDT [facility] O2 SATURATION, VENOUS 48(L) 70 - 75 % 07/05/2023 1:47 PM CDT [facility] PATIENT TEMPERATURE 37.0 Degrees C 07/05/2023 1:47 PM CDT [facility] Blood BLOOD SPECIMEN / Unknown Butterfly / Unknown 07/05/2023 1:30 PM CDT 07/05/2023 1:42 PM CDT Lore Noble MD CHEMISTRY [facility] [address] [address], * (ABNORMAL) T3,TOTAL (07/05/2023 1:30 PM CDT) T3,TOTAL 63(L) 85 - 202 ng/dL 07/05/2023 3:16 PM CDT [facility] Blood BLOOD SPECIMEN / Unknown Butterfly / Unknown 07/05/2023 1:30 PM CDT 07/05/2023 1:42 PM CDT Lore Noble MD CHEMISTRY [facility] [address] [address], [place] * T4, free AM (07/05/2023 1:30 PM CDT) Only the most recent of2 resultswithin the time period is included. T4,FREE 1.28 0.93 - 1.70 ng/dL 07/05/2023 2:43 PM CDT [facility] Blood BLOOD SPECIMEN / Unknown Butterfly / Unknown 07/05/2023 1:30 PM CDT 07/05/2023 1:42 PM CDT Lore Noble MD CHEMISTRY Performing Organization Address [facility]/[place] Co de Phone Number [facility] [address] [address], [place] * (ABNORMAL) Vitamin B12 level AM (07/05/2023 1:30 PM CDT) Pathologist [facility] VITAMIN B12 1,627(H) 232 - 1,245 pg/mL 07/05/2023 2:44 PM CDT [facility] Blood BLOOD SPECIMEN / Unknown Butterfly / Unknown 07/05/2023 1:30 PM CDT 07/05/2023 1:[address] [facility] - 07/05/2023 2:44 PM CDT Biotin supplements may cause clinically significant interference for this test assay. ??If interference is suspected, it is strongly recommended that biotin is discontinued for at least one week prior to retesting. Lore Noble MD CHEMISTRY Performing Organization Address [facility] Co de Phone Number [facility] [address] [address], * (ABNORMAL) Ammonia TODAY (07/05/2023 1:30 PM CDT) AMMONIA 15(L) 16 - 60 umol/L 07/05/2023 2:46 PM CDT [facility] Blood BLOOD SPECIMEN / Unknown Butterfly / Unknown 07/05/2023 1:30 PM CDT 07/05/2023 1:42 PM CDT [facility] - 07/05/2023 2:46 PM CDT 1. ??Sulfasalazine and its metabolite Sulfapyridine at therapeutic concentrations may lead to falsely low results. 2. ??Temozolomide and its metabolite MTIC may lead to falsely elevated results, and its metabolite AIC may lead to falsely low results. Lore Noble MD CHEMISTRY [facility] [address] [place] [address], * Lipid Panel AM (07/04/2023 1:12 PM CDT) [facility] CHOLESTEROL,TOTAL 187 100 - 199 mg/dL 07/04/2023 1:50 PM CDT [facility] Comment: Cholesterol, Total Reference Ranges Desirable <200 mg/dL Borderline 200-239 mg/dL High >=240 mg/dL TRIGLYCERIDES 65 <150 mg/dL 07/04/2023 1:50 PM CDT [facility] HDL CHOLESTEROL 57 >40 mg/dL 1:50 PM CDT [facility] NON-HDL CHOLESTEROL 130 <145 mg/dl 07/04/2023 1:50 PM CDT [facility] CHOL/HDL RATIO 3.28 <4.50 07/04/2023 1:50 PM CDT [facility] LDL CHOLESTEROL 117 <=130 mg/dL 07/04/2023 1:50 PM CDT [facility] VLDL CHOLESTEROL 13 <=30 mg/dL 07/04/2023 1:50 PM CDT [facility] PROVIDER ORDERED STATUS RANDOM 07/04/2023 1:50 PM CDT [facility] Blood BLOOD SPECIMEN / Unknown Butterfly / Unknown 07/04/2023 1:12 PM CDT 07/04/2023 1:21 PM CDT Lore Noble MD CHEMISTRY [facility] [address] [place] [address], [place] * [place] ARTERIAL LOWER EXTREMITY W [...] Yossi Earl M.D. Interventional Radiology/Diagnostic Radiology (IR/DR) [facility] [facility] [facility] [email or web address] Narrative 07/04/2023 10:04 AM CDT Table [...] ? RIGHT PSV T, M ??VELOCITY RATIO SALES FACILITATOR Proximal ??447 458 M ?? SALES FACILITATOR Distal 397 395 M ?? PFA 172 M ?? SFA Proximal ?? 66 96 M ?? SFA Mid ??116 77 M ?? SFA Distal ?? 33 28 M ?? POP Proximal ?? 36 M ?? POP Distal ??42 M ?? HAND TAPPER ??- ?? KAYA ?? 37 M ?? DPA ??33 M ?? T = Multiphasic; M = Monophasic ?? LEFT PSV T, M VELOCITY RATIO SALES FACILITATOR Proximal ??251 M ?? SALES FACILITATOR Distal 211 M ?? PFA 166 M ?? SFA Proximal ?? 57 43 M ?? SFA Mid ?? 30 19 M ?? SFA Distal ?? 15 M ?? POP Proximal ?? 48 M ?? POP Distal ??54 M ?? HAND TAPPER ??44 M ?? KAYA ?? 25 M [...] 07/04/2023 8:42 AM CDT [facility] Blood BLOOD SPECIMEN / Unknown Venipuncture / Unknown 07/03/2023 11:18 AM CDT 07/03/2023 11:45 AM CDT [facility] SEND OUTS [facility] [address] [place] [address], [place] * Sodium TODAY (07/01/2023 2:52 PM CDT) Only the most recent of2 resultswithin the time period is included. SODIUM 136 136 - 145 mmol/L 07/01/2023 4:02 PM CDT [facility] Blood BLOOD SPECIMEN / Unknown Butterfly / Unknown 07/01/2023 2:52 PM CDT 07/01/2023 3:02 PM CDT Vikram Dias MD CHEMISTRY Performing Organization Address City/[facility]/ZIP Co de Phone Number [facility] [address] [place] [address], * SOLUBLE TRANSFERRIN DISABILITY SERVICES COORDINATOR (06/29/2023 4:19 AM CDT) [facility] MECCA.TRANSFERRI N RECEPTOR 2.20 1.90 - 4.40 mg/L 06/30/2023 11:04 AM CDT [facility] Blood BLOOD SPECIMEN / Unknown Butterfly / Unknown 06/29/2023 4:19 AM CDT 06/29/2023 5:30 AM CDT Vikram Dias MD SEND OUTS Performing Organization Address [facility]/[place] Co de Phone Number [facility] [address] [place] [address], * (ABNORMAL) FERRITIN (06/29/2023 4:19 AM CDT) [facility] FERRITIN 1,209.0(H) 15.0 - 150.0 ng/mL 06/30/2023 11:03 AM CDT [facility] Blood BLOOD SPECIMEN / Unknown Butterfly / Unknown 06/29/2023 4:19 AM CDT 06/29/2023 5:30 AM CDT Vikram Dias MD CHEMISTRY Performing Organization Address City/[facility]/ZIP Co de Phone Number [facility] [address] [place] [address], * SCAN-CARDIAC STRIP (06/29/2023 2:29 AM CDT) Scanner OTHER * CLOSTRIDIOIDES DIFFICILE TOXIN PCR (06/28/2023 4:18 PM CDT) [facility] CLOSTRIDIUM DIFFICILE PCR Negative 06/28/2023 6:09 PM CDT [facility] PRESUMPTIVE NAP1 STRAIN Negative 06/28/2023 6:09 PM CDT [facility] Stool STOOL SPECIMEN / Unknown Non-Blood / Unknown 06/28/2023 4:18 PM CDT 06/28/2023 4:[address] [facility] - 06/28/2023 6:09 PM CDT The NAP1 (027 or BI) strain is a hypervirulent strain. Detection may be useful for epidemiological purposes. Vikram Dias MD MICROBIOLOGY [facility] [address] [place] [address], * (ABNORMAL) Basic metabolic panel AM (06/28/2023 2:52 PM CDT) Only the most recent of8 resultswithin the time period is included. SODIUM 135(L) 136 - 145 mmol/L 06/28/2023 4:11 PM CDT [facility] POTASSIUM 3.3(L) 3.5 - 5.1 mmol/L 06/28/2023 4:11 PM CDT [facility] CHLORIDE 96(L) 98 - 107 mmol/L 06/28/2023 4:11 PM CDT [facility] CO2,TOTAL 25 22 - 29 mmol/L 06/28/2023 4:11 PM CDT [facility] ANION GAP 14 5 - 18 06/28/2023 4:11 PM CDT [facility] GLUCOSE 158(H) 70 - 99 mg/dL 06/28/2023 4:11 PM CDT [facility] CALCIUM 9.2 8.8 - 10.2 mg/dL 06/28/2023 4:11 PM CDT [facility] BUN 32(H) 8 - 23 mg/dL 06/28/2023 4:11 PM CDT [facility] CREATININE 1.83(H) 0.50 - 0.90 mg/dL 06/28/2023 4:11 PM CDT [facility] BUN/CREAT RATIO 17 10 - 20 4 4:11 PM CDT [facility] eGFR 28(L) >90 mL/min/1.7 3m2 06/28/2023 4:11 PM CDT [facility] Comment:As of 2021, [...] [facility] [address] [place] [address], * ECHO TTE COMPLETE WO CONTRAST (06/28/2023 2:32 PM CDT) AORTIC VALVE MEAN PG 6 mmHg EJECTION FRACTION 71 % PEAK TR VELOCITY 2.6 m/s LVEDD 4.4 cm Anatomical Region Laterality Modality Ultrasound 06/28/2023 12:5 0 PM CDT Narrative 06/28/2023 2:49 PM CDT ECHOCARDIOGRAM CYNTHIA HOLBROOK ?Accession#: ?? [id number] : ?1945 78 years Study Date: ?? 06/28/2023 12:50:33 PM Gender: F ? BP: ? 196/84 mmHg Height: 154.00 cm ? BSA: ?1.66 m? ? ? Weight: 68.00 kg ?Tech: ? AH ?Referring MD: LISBET MENJIVAR Site: ? [facility] Reading Location: [facility] Patient Location: Procedure: 2D, Spectral Doppler and [...] . This study was interpreted by an [facility] accredited facility. ??Final ?? Procedure Note Hanna Lane, [facility] - 06/28/2023 ECHOCARDIOGRAM CYNTHIA HOLBROOK : 1945 78 years Study Date: 06/28/2023 12:50:33 PM Gender: F BP: 196/84 mmHg Height: 154.00 cm BSA: 1.66 m? ? ? Weight: 68.00 kg Tech: WILLIS Referring MD: LISBET MENJIVAR Site: [facility] Reading Location: [facility] Patient Location: Procedure: 2D, Spectral Doppler and [...] . This study was interpreted by an [facility] accredited facility. Final Lisbet KEEN ECHO ORD * SCAN-CARDIAC STRIP (06/28/2023 1:02 AM CDT) Scanner OTHER * ENDOSCOPY (06/27/2023 11:26 AM CDT) 06/27/2023 11:2 6 AM CDT Narrative Transcriptions Kavin Fournier MD - 06/27/2023 1:00 PM CDT [facility] Patient Name: Cynthia Holbrook Procedure Date: 06/27/2023 Gender: Female Date of : 1945 Admit Type: Inpatient Procedure: Upper GI endoscopy Proceduralist: Kavin Rangel MD - [facility] Indications/Pre-Op Diagnosis: Unexplained iron deficiency anemia, recent Stephani Cardoza tear treated at an outside hospital Medications: Monitored Anesthesia Care Procedure Description: Risk of bleeding, infection, perforation, need for surgery and alternatives discussed. The endoscope [id number] was introduced through the mouth, and advanced [...] 11.0 thou/cu mm 06/27/2023 6:25 AM CDT [facility] RED BLOOD COUNT 2.51(L) 4.00 - 5.20 mil/cu mm 06/27/2023 6:25 AM CDT [facility] HEMOGLOBIN 7.3(L) 12.0 - 16.0 g/dL 06/27/2023 6:25 AM CDT [facility] HEMATOCRIT 22.4(L) 33.0 - 51.0 % 06/27/2023 6:25 AM CDT [facility] MCV 89 80 - 100 fL 06/27/2023 6:25 AM CDT [facility] MCH 29.1 26.0 - 34.0 pg 06/27/2023 6:25 AM CDT [facility] MCHC 32.6 32.0 - 36.0 g/dL 06/27/2023 6:25 AM CDT [facility] RDW 16.3(H) 11.5 - 15.5 % 06/27/2023 6:25 AM CDT [facility] PLATELET COUNT 251 140 - 440 thou/cu mm 06/27/2023 6:25 AM CDT [facility] MPV 10.2 6.5 - 11.0 fL 06/27/2023 6:25 AM CDT [facility] NRBC 0.0 % 06/27/2023 6:25 AM CDT [facility] ABS NRBC 0.0 thou /cu mm 06/27/2023 6:25 AM CDT [facility] Blood BLOOD SPECIMEN / Unknown Venipuncture / Unknown 06/27/2023 6:06 AM CDT 06/27/2023 6:16 AM CDT Vikram Dias MD HEMATOLOGY Performing Organization Address [facility] Co de Phone Number [facility] [address] [place] [address], * SCAN-CARDIAC STRIP (06/27/2023 1:24 AM CDT) Scanner OTHER * SCAN-CARDIAC STRIP (06/26/2023 8:45 PM CDT) Scanner OTHER * COVID/FLU/RSV PANEL (06/26/2023 1:24 PM CDT) Pathologist [facility] COVID 19 [facility] Negative Negative 06/26/2023 3:13 PM CDT [facility] Comment:All PCR tests are isaacs bject to false negative result due to variability in viral load and collection technique. A negative result does not rule out a SARS-CoV-2 infection. Clinical correlation required. INFLUENZA A PCR Negative 4 3:13 PM CDT [facility] INFLUENZA B PCR Negative 4 3:13 PM CDT [facility] Respiratory Syncytial Virus Negative 06/26/2023 3:13 PM CDT [facility] Swab NASOPHARYNGEAL SWAB / Unknown Non-Blood / Unknown 06/26/2023 1:24 PM CDT 06/26/2023 1:38 PM CDT Vikram Dias MD MICROBIOLOGY Performing Organization Address [facility]/ZIP Co de Phone Number [facility] [address] [place] [address], * (ABNORMAL) AEROBIC BACTERIAL CULTURE, STAIN (06/26/2023 1:24 PM CDT) CULTURE RESULT(A) 07/01/2023 10:16 AM CDT [facility] CULTURE 1+ Pseudomonas aeruginosa 07/01/2023 10:16 AM CDT [facility] CULTURE 1+ Proteus mirabilis 07/01/2023 10:16 AM CDT [facility] CULTURE 1+ Enterococcus faecalis 07/01/2023 10:16 AM CDT [facility] GRAM STAIN 1+ Epithelial cells 07/01/2023 10:16 AM CDT [facility] GRAM STAIN 2+ PMNs 07/01/2023 10:16 AM CDT [facility] GRAM STAIN No RBCs 07/01/2023 10:16 AM CDT [facility] GRAM STAIN No organisms seen 07/01/2023 10:16 AM CDT [facility] Other (Other) Non-Blood / Unknown 06/26/2023 [...] AMPICILLIN <=2: S Vikram Dias MD MICROBIOLOGY [facility] [address] [address], * EXTRA TUBE LIGHT GREEN (06/26/2023 1:05 PM CDT) Blood BLOOD SPECIMEN / Unknown Non-Lab Venipuncture / Unknown 06/26/2023 1:05 PM CDT 06/26/2023 1:21 PM CDT Vikram Dias MD LABORATORY Performing Organization Address [facility]/RUST Co de Phone Number [facility] [address] [place] [address], * BLOOD CULTURE (06/26/2023 12:53 PM CDT) Only the most recent of4 resultswithin the time period is included. CULTURE No Growth. 06/30/2023 3:06 PM CDT [facility] Blood BLOOD SPECIMEN / Unknown Line/Port / Unknown 06/26/2023 12:53 PM CDT 06/26/2023 1:[address] [facility] - 06/30/2023 3:06 PM CDT Low volume blood culture received; possible false negative culture. Lalita Castillo MD MICROBIOLOGY Performing Organization Address [facility] de Phone Number [facility] [address] [place] [address], * VANCOMYCIN (06/26/2023 12:53 PM CDT) VANCOMYCIN 21.0 ug/mL 06/26/2023 2:14 PM CDT [facility] Comment:No Reference Range D efined. DATE OF LAST DOSE,RANDOM 06/26/2023 06/26/2023 2:14 PM CDT [facility] TIME OF LAST DOSE,RANDOM 12:00 AM 06/26/2023 2:14 PM CDT [facility] Blood BLOOD SPECIMEN / Unknown Line/Port / Unknown 06/26/2023 12:53 PM CDT 06/26/2023 1:02 PM CDT Nolangerardo Menjivar LEONILA CHEMISTRY [facility] [address] [place] [address], * MR HEAD BRAIN WO (06/26/2023 11:20 [...] PM (Electronically Signed) Procedure Note Kaelyn Tanner, - 06/26/2023 For Patients: As a result [...] NOW QTc 453 ms BEYOND NOW P [place] 37 degrees BEYOND NOW R [place] -31 degrees BEYOND NOW T [place] 46 degrees BEYOND NOW 06/26/2023 2:40 AM CDT 06/26/2023 7:24 PM CDT Narrative BEYOND NOW - 06/26/2023 7:24 PM CDT Test Indication: Stat Quyen Worley MD EKG ORD BEYOND NOW [place], [place] * SCAN-CARDIAC STRIP (06/26/2023 12:01 AM CDT) Scanner OTHER * (ABNORMAL) CBC WITH AUTO DIFFERENTIAL (06/26/2023 12:01 AM CDT) Only the most recent of2 resultswithin the time period is included. WHITE BLOOD COUNT 7.1 4.5 - 11.0 thou/cu mm 06/26/2023 12:13 AM CDT [facility] RED BLOOD COUNT 2.54(L) 4.00 - 5.20 mil/cu mm 06/26/2023 12:13 AM CDT [facility] HEMOGLOBIN 7.6(L) 12.0 - 16.0 g/dL 06/26/2023 12:13 AM CDT [facility] HEMATOCRIT 22.5(L) 33.0 - 51.0 % 06/26/2023 12:13 AM CDT [facility] MCV 89 80 - 100 fL 06/26/2023 12:13 AM CDT [facility] MCH 29.9 26.0 - 34.0 pg 06/26/2023 12:13 AM CDT [facility] MCHC 33.8 32.0 - 36.0 g/dL 06/26/2023 12:13 AM CDT [facility] RDW 16.1(H) 11.5 - 15.5 % 06/26/2023 12:13 AM [facility] PLATELET COUNT 279 140 - 440 thou/cu mm 06/26/2023 12:13 AM [facility] MPV 9.6 6.5 - 11.0 fL 06/26/2023 12:13 AM [facility] NRBC 0.0 % 06/26/2023 12:13 AM [facility] ABS NRBC 0.0 thou /cu mm 06/26/2023 12:13 AM [facility] % NEUT 73.9 % 06/26/2023 12:13 AM [facility] % LYMPH 16.3 % 06/26/2023 12:13 AM [facility] % MONO 9.3 % 06/26/2023 12:13 AM [facility] % EOS 0.0 % 06/26/2023 12:13 AM [facility] % BASO 0.1 % 06/26/2023 12:13 AM [facility] % IMMATURE GRAN (METAS,MYELOS,RI OS) 0.4 % 06/26/2023 12:13 AM [facility] ABSOLUTE NEUTROPHILS 5.3 1.7 - 7.0 thou/cu mm 06/26/2023 12:13 AM [facility] ABSOLUTE LYMPHOCYTES 1.2 0.9 - 2.9 thou/cu mm 06/26/2023 12:13 AM [facility] ABSOLUTE MONOCYTES 0.7 <0.9 thou/cu mm 06/26/2023 12:13 AM [facility] ABSOLUTE EOSINOPHILS 0.0 <0.5 thou/cu mm 06/26/2023 12:13 AM [facility] ABSOLUTE BASOPHILS 0.0 <0.3 thou/cu mm 06/26/2023 12:13 AM [facility] ABSOLUTE IMMATURE GRANULOCYTES(MET ,MYELOS,PROS) 0.0 <0.3 thou/cu mm 06/26/2023 12:13 AM CDT [facility] Blood BLOOD SPECIMEN / Unknown Non-Lab Venipuncture / Unknown 06/26/2023 12:01 AM CDT 06/26/2023 12:09 AM CDT [facility] HEMATOLOGY Performing Organization Address City/[facility]/ZIP Co de Phone Number [facility] [address] [place] [address], * LACTATE VENOUS (06/26/2023 12:01 AM CDT) Only the most recent of2 resultswithin the time period is included. LACTATE,VENOUS 1.5 0.5 - 2.0 mmol/L 06/26/2023 12:43 AM CDT [facility] Blood BLOOD SPECIMEN / Unknown Non-Lab Venipuncture / Unknown 06/26/2023 12:01 AM CDT 06/26/2023 12:10 AM CDT [facility] CHEMISTRY Performing Organization Address [facility]/[place] Co de Phone Number [facility] [address] [place] [address], * (ABNORMAL) PROCALCITONIN (06/26/2023 12:01 AM CDT) PROCALCITONIN 1.17(H) ng/ml 06/26/2023 3:00 AM CDT [facility] Blood BLOOD SPECIMEN / Unknown Non-Lab Venipuncture / Unknown 06/26/2023 12:01 AM CDT 06/26/2023 12:[address] [facility] - 06/26/2023 3:00 AM CDT Procalcitonin [...] SEND OUTS [facility] [address] [place] [address], * (ABNORMAL) TSH (06/26/2023 12:01 AM CDT) [facility] Signature TSH 8.27(H) 0.27 - 4.20 uIU/mL 06/26/2023 12:48 AM CDT [facility] Blood BLOOD SPECIMEN / Unknown Non-Lab Venipuncture / Unknown 06/26/2023 12:01 AM CDT 06/26/2023 12:09 AM CDT Narrative [facility] - 06/26/2023 12:48 AM CDT In Adults, TSH values between 5.00 and 10.00 uIU/ml do not necessarily indicate the presence of Hypothyroidism. Correlation with clinical findings such as presence of goiter and/or Thyroperoxidase (TPO) Antibody may be helpful. For more information please refer to SRAVANTHI 2004; 291: 228-238. Lisbet KEEN CHEMISTRY [facility] [address] [place] [address], * (ABNORMAL) Protime - INR (06/26/2023 12:01 AM CDT) Only the most recent of2 resultswithin the time period is included. INR 1.3(H) <1.3 06/26/2023 12:24 AM CDT [facility] PROTIME 14.6(H) 10.3 - 12.3 sec 06/26/2023 12:24 AM CDT [facility] Blood BLOOD SPECIMEN / Unknown Non-Lab Venipuncture / Unknown 06/26/2023 12:01 AM CDT 06/26/2023 12:09 AM CDT Narrative [facility] - 06/26/2023 12:24 AM CDT ?Therapeutic Range [...] seconds if the patient is on UFH. Nolangerardo Odomnerissa [facility]IS HEMATOLOGY Performing Organization Address City/[facility]/ZIP Co de Phone Number [facility] [address] [place] [address], * LIPASE (06/26/2023 12:01 AM CDT) LIPASE 49.8 13.0 - 60.0 IU/L 06/26/2023 12:48 AM CDT [facility] Blood BLOOD SPECIMEN / Unknown Non-Lab Venipuncture / Unknown 06/26/2023 12:01 AM CDT 06/26/2023 12:09 AM CDT Nolangerardo Hector CH[facility] CHEMISTRY Performing Organization Address [facility]/ZIP Co de Phone Number [facility] [address] [place] [address], [place] * (ABNORMAL) Hepatic Function Panel (06/26/2023 12:01 AM CDT) ALBUMIN 3.5(L) 4.0 - 4.9 g/dL 06/26/2023 12:48 AM CDT [facility] PROTEIN,TOTAL 6.6 6.0 - 8.0 g/dL 06/26/2023 12:48 AM CDT [facility] BILIRUBIN,TOTAL 0.4 0.0 - 1.2 mg/dL 06/26/2023 12:48 AM CDT [facility] BILIRUBIN,DIRECT <0.2 0.0 - 0.3 mg/dL 06/26/2023 12:48 AM CDT [facility] BILIRUBIN,INDIRE CT 06/26/2023 12:48 AM CDT [facility] Comment:Unable to calculate, Direct Bili <0.2 ALK PHOSPHATASE 73 35 - 104 IU/L 06/26/2023 12:48 AM CDT [facility] ALT (SGPT) 9(L) 10 - 35 IU/L 06/26/2023 12:48 AM CDT [facility] AST (SGOT) 18 10 - 35 IU/L 06/26/2023 12:48 AM CDT [facility] Blood BLOOD SPECIMEN / Unknown Non-Lab Venipuncture / Unknown 06/26/2023 12:01 AM CDT 06/26/2023 12:09 AM CDT Lisbet KEEN CHEMISTRY Performing Organization Address [facility]/[place] Co de Phone Number [facility] [address] [place] [address], * MRSA/SA PCR (06/25/2023 11:21 PM CDT) MRSA DNA PCR Negative Negative 06/26/2023 12:38 AM CDT [facility] STAPHYLOCOCCUS AUREUS PCR Negative Negative 06/26/2023 12:38 AM CDT [facility] Other SPECIMEN FROM INTERNAL NOSE / Unknown Non-Blood / Unknown 06/25/2023 11:21 PM CDT 06/25/2023 11:[address] [facility] - 06/26/2023 12:38 AM CDT Test result does not preclude MRSA or SA nasal colonization. iLsbet KEEN MICROBIOLOGY Performing Organization Address [facility] Co de Phone Number [facility] [address] [place] [address], * SCAN-CARDIAC STRIP (06/25/2023 9:55 PM CDT) [...] @ Jun 25 2023 10:03PM (Electronically Signed) [email or web address] Narrative 06/25/2023 10:03 PM CDT For Patients: [...] @ Jun 25 2023 10:03PM (Electronically Signed) [email or web address] Lisbet [facility] * SCAN-CARDIAC STRIP (06/25/2023 12:00 AM CDT) Narrative 06/25/2023 12:00 AM CDT Ordered by an unspecified provider. Other Clinical Staff OTHER * (ABNORMAL) CREATININE (06/12/2023 7:22 AM [facility]) eGFR 22(L) >90 mL/min/1.7 3m2 06/12/2023 7:52 AM [facility] Comment:As of 2021, eG FR is calculated by the CKD-EPI creatinine equation without race adjustment. ??eGFR can be influenced by muscle mass, exercise, and diet. ??The reported eGFR is an estimation only and is only applicable if the renal function is stable. CREATININE 2.25(H) 0.50 - 0.90 mg/dL 06/12/2023 7:52 AM [facility] Blood BLOOD SPECIMEN / Unknown Arterial / Unknown 06/12/2023 7:22 AM [facility] 06/12/2023 7:27 AM [facility] Jazzmine Amin MD CHEMISTRY Performing Organization Address [facility]/ZIP Co de Phone Number [facility] SENDOUT [place] ZIP [phone] [place] [address] * CO2,TOTAL (06/12/2023 7:22 AM [facility]) CO2,TOTAL 29 22 - 29 mmol/L 06/12/2023 7:52 AM [facility] Blood BLOOD SPECIMEN / Unknown Arterial / Unknown 06/12/2023 7:22 AM [facility] 06/12/2023 7:27 AM [facility] Jazzmine Amin MD CHEMISTRY Performing Organization Address [facility]/ZIP Co de Phone Number [facility] SENDOUT INTERNAL ZIP [id number] [place] [address] * SCAN-CARDIAC STRIP (06/11/2023 10:34 AM [facility]) Scanner OTHER * SCAN-CARDIAC STRIP (06/11/2023 5:34 AM [facility]) Scanner OTHER * SCAN-CARDIAC STRIP (06/10/2023 10:21 PM [facility]) Scanner OTHER * SCAN-CARDIAC STRIP (06/10/2023 7:37 AM [facility]) Scanner OTHER * SCAN-CARDIAC STRIP (06/10/2023 4:24 AM [facility]) Scanner OTHER * SCAN-CARDIAC STRIP (06/09/2023 7:45 AM [facility]) Scanner OTHER * SCAN-CARDIAC STRIP (2023 3:18 PM [facility]) Scanner OTHER * SCAN-CARDIAC STRIP (2023 7:40 AM [facility]) Scanner OTHER * SCAN-CARDIAC STRIP (2023 12:26 AM [facility]) Scanner OTHER * SCAN-CARDIAC STRIP (06/07/2023 4:05 PM [facility]) Scanner OTHER * SCAN-CARDIAC STRIP (06/07/2023 10:43 AM [facility]) Scanner OTHER * SCAN-CARDIAC STRIP (06/06/2023 7:57 PM [facility]) Scanner OTHER * SCAN-CARDIAC STRIP (06/06/2023 5:10 PM [facility]) Scanner OTHER * SCAN-CARDIAC STRIP (06/06/2023 7:41 AM [facility]) Scanner OTHER * SCAN-CARDIAC STRIP (06/06/2023 4:28 AM [facility]) Scanner OTHER * TRANSFUSE RBC (NURSE COMMUNICATION ORDER) (06/05/2023 1:55 PM [facility]) Blood BLOOD SPECIMEN / Unknown Cesar Reddy MD NURSING BLOOD BANK * RBC W/O TYPE & SCREEN (06/05/2023 10:28 AM [facility]) Only the most recent of2 resultswithin the time period is included. QUANTITY 1 06/05/2023 10:28 AM [facility] Blood BLOOD SPECIMEN / Unknown 06/05/2023 10:14 AM [facility] Cesar Reddy MD BLOOD BANK Performing Organization Address [facility] Co de Phone Number [facility] [address] [place] [address] * RED BLOOD CELLS EA UNIT (06/05/2023 10:28 AM [facility]) Only the most recent of2 resultswithin the time period is included. CROSSMATCH Compatible Compatible [facility] PRODUCT BLOOD TYPE O Rh Positive [facility] PRODUCT ID NUMBER [id number] [facility] PRODUCT STATUS Transfused UNIT ED [facility] BLOOD BANK PRODUCT DESCRIPTION RBC -1 LR [facility] PRODUCT CODE [id number] [facility] ISSUE DATE/TIME 06/05/23 10:30 [facility] Cesar Reddy MD BLOOD BANK Performing Organization Address [facility] Co de Phone Number [facility] [address] [place] [phone] * ENDOSCOPY (06/05/2023 10:24 AM [facility]) 06/05/2023 10:2 4 AM [facility] Narrative Transcriptions RamboMichael Duffy MD - 06/05/2023 [...] candidate for conscious sedation. The endoscope [id number] was introduced through the mouth, and advanced [...] ORD * SCAN-CARDIAC STRIP (06/05/2023 7:49 AM [facility]) Scanner OTHER * TRANSFUSE RBC (NURSE COMMUNICATION ORDER) (06/05/2023 5:33 AM [facility]) Blood BLOOD SPECIMEN / Unknown Hanna Peterson NP NURSING BLOOD BANK * SCAN-CARDIAC STRIP (06/04/2023 5:13 PM [facility]) Scanner OTHER * CT Abdomen Pelvis w IV (Oral Contrast = NO) (06/04/2023 2:14 PM [facility]) Anatomical Region Laterality Modality Abdomen, Pelvis, AORTA, LIVER, SPLEEN Computed Tomography 06/04/2023 2:14 PM [facility] Impressions 06/04/2023 2:24 PM [facility] 1. ??No acute findings in the abdomen and pelvis. Narrative 06/04/2023 2:24 PM [facility] For Patients: As a result of the Century Cures Act, medical imaging exams and procedure reports are released immediately into your electronic medical record. You may view this report before your referring provider. If you have questions, please contact your health care provider. EXAM: CT ABDOMEN PELVIS W LOCATION: [facility] DATE: 06/04/2023 INDICATION: Abdominal or [...] provider. EXAM: CT ABDOMEN PELVIS W LOCATION: [facility] DATE: 06/04/2023 INDICATION: Abdominal or [...] TYPE AND SCREEN ONLY (06/04/2023 10:43 AM [facility]) ABORH O Rh Positive 06/04/2023 11:49 AM [facility] BLOOD BANK ANTIBODY SCREEN Negative Negative 06/04/2023 11:49 AM [facility] B[facility] SPECIMEN EXPIRATION DATE/TIME 06/07/23 23:59 06/04/2023 11:49 AM [facility] BLOOD BANK Blood BLOOD SPECIMEN / Unknown Non-Lab Venipuncture / Unknown 06/04/2023 10:43 AM [facility] 06/04/2023 10:55 AM [facility] Lynne Hurt MD BLOOD BANK [facility] BLOOD BANK [address] [place] [address] * EXTRA TUBE LAVENDER (06/04/2023 10:15 AM [facility]) Blood BLOOD SPECIMEN / Unknown Venipuncture / Unknown 06/04/2023 10:15 AM [facility] 06/04/2023 11:56 AM [facility] Laboratory LABORATORY [facility] SENDOUT [place] ZIP [id number] [address] [place] [address] * SCAN-BONE DENSITOMETRY DEXA (12/02/2018 12:00 AM CDT) Anatomical Region Laterality Modality Other Scanner OTHER from Last 3 Months or Most Recently Relevant to Health Maintenance Advance Directives Documents on File Type Date Recorded Patient [employer] Expl anation POLST 12/01/2021 * Full Code [...] Comments Code Status Discussion: Discussed Care Teams Employee Development Manager Relationship Specialty Start Date End Date Erickson Vinson MD [address] [place] [address] PCP - General Family Practice 02/01/23
== END 2023-08-30 10:36 | disposition home or self-care (01) ==
LOC: WOUND 10:35
PROVIDERS: PCP Family Medicine; Visit Provider Nurse Practitioner Family
DX: I73.9 Peripheral vascular disease, unspecified (principal); L97.222 Non-pressure chronic ulcer of left calf with fat layer exposed; R26.9 Unspecified abnormalities of gait and mobility; Z99.3 Dependence on wheelchair
CPT/HCPCS: 97602

== ENCOUNTER 2023-09-13 09:27 | Outpatient (CLI) | payer OTHER, SELFPAY | END 2023-09-13 09:28 | disposition home or self-care (01) | PROVIDERS: PCP Family Medicine; Visit Provider Nurse Practitioner Family | DX: I73.9 Peripheral vascular disease, unspecified (principal); L97.221 Non-pressure chronic ulcer of left calf limited to breakdown of skin | CPT/HCPCS: 97597 ==

== ENCOUNTER 2023-09-27 09:52 | Outpatient (CLI) | payer OTHER, SELFPAY ==
--- OUTSIDE RECORDS SUMMARY | 2023-09-27 09:55 | XMS_ITS ---
Author Organization [facility] Address [address] [place] [address] Care Team Providers Care Technical Support Intern Name Role Phone Unavailable Unavailable Unavailable Surgery Details Not on file Complications Check Surgery Details section. Procedure Estimated Blood Loss Check Surgery Details section. Procedure Findings Check Surgery Details section. Procedure Specimens Taken Check Surgery Details section.
--- OUTSIDE RECORDS SUMMARY | 2023-09-27 09:55 | XMS_ITS | Clinical Summary ---
Author Organization [facility] Address [address] [place] [phone] Phone Care Team Providers Care Station Engineer Main Line Name Role Phone Eusebia Whitaker MD Primary Care Provider [phone] Allergies Active Allergy Reactions Criticality Noted Date [...] 3 (moderate) 02/07 Proteinuria 02/07/2019 Anemia 02/07/2019 intermediate manager current use of non-steroidal anti-infl ammatories 02/07/2019 [...] Influenza Vaccine (Season Ended) 2023 Care Teams Station Engineer Main Line Relationship Specialty Start Date End Date Eusebia Whitaker MD [address] [place] [address] PCP - General Family Medicine 11/24/19
--- OUTSIDE RECORDS SUMMARY | 2023-09-27 09:55 | XMS_ITS | Clinical Summary ---
Author Organization [facility] Address [address] [place] [address] Care Team Providers Care Toeing Stockings Name Role Phone Unavailable Primary Care Provider Unavailabl e Source Comments Patient records contain information from all sites at [facility]. For routine questions regarding patient records, call [phone] during business hours, M-F 8:00 AM - 5:00 PM Central Time. Record requests for emergency care only can be directed to [phone] at any time.[facility] Allergies Active Allergy Reactions Criticality Noted [...] mouth as directed. Take daily after dialysis (dialysis days) and BID non-dialysis days 150 tablet 3 11/29/2022 4 Active mirtazapine (REMERON) 15 mg tablet Take 1 tablet (15 mg total) by mouth at bedtime. 90 tablet 3 08/21/2023 5 Active Active Problems Problem Noted Date Diagnosed [...] Overview: Added automatically from request for surgery [id number] Hyperparathyroidism Renal Secondary 01/17/2021 Urinary Tract Infection [...] Orders Only Division of Nephrology and Hypertension, [place], [place] [address] [place] [address] Jenna Neri APRN C.N.P., M.S.N. 08/20/2023 Orders Only Division of Nephrology and Hypertension, [place], [place] [address] [place] [address] Jenna Neri APRN C.N.P., M.S.N. from Last 3 Months Social [...] (145 lb 11.6 oz) 023 12:20 PM ACADEMIC AFFAIRS SPECIALIST Height 165.1 cm (5' 5) 2022 12:3 0 PM ACADEMIC AFFAIRS SPECIALIST Body Mass Index 24.25 2022 12:30 PM ACADEMIC AFFAIRS SPECIALIST Plan of Treatment Health Maintenance Due Date Last Done Comments Office Visit for Blood Press ure Check / Re-check 1945 Hepatitis B Vaccines (1 of 3 - Risk Dialysis 4-dose series) 1963 Zoster Vaccines (1 of 2) 11/17/2015 09/22/2015 Influenza Vaccine (#1) 2023 , 01/12/2021, 01/20/2020, Additional history exists Depression Screening (Annual PHQ-2) 04/09/2023 Fall Risk Screen (Annual) 04/09/2023 COVID-19 Vaccine (2022-2 4 season) 2023 01/30/2023, 01/16/2022, 01/20/2021, Additional history exists Creatinine Level (Kidney Fun ction Test) 07/06/2024 07/07/2023, 07/06/2023, 07/05/2023, Additional history exists Sodium Level 07/06/2024 07/07/2023, 06/08, 07/05/2023, Additional history exists Potassium Level 07/07/2024 07/08/2023, 06/09, 07/06/2023, Additional history exists DTaP,Tdap,and Td Vaccines (2 - Td or Tdap) 11/14/2027 11/13/2017 Pneumococcal vaccine (65+ years) Completed 08/19/19 16, 01/20/2010 Medical Devices Implanted Type Area Stress Engineer Device Identifier Shelf Expiration Date Model / Serial / Lot Clp Lgc Lgt Ti Sm - [id number] Implanted:Qty : 1 on 06/06/2022 by Garfield Pavon M.D. at [facility] Hardware e.g. pins/screws/ rods Left: Arm Ethicon LT100 / / Clp Hrzn Ti 6 Clp Md Anthony - [id number] Implanted:Qty : 1 on 06/06/2022 by Garfield Pavon M.D. at [facility] Hardware e.g. pins/screws/ rods Left: Arm [employer] [id number] / / Clp Lgc Lgt Ti Sm - [id number] Implanted:Qty : 1 on 06/11/2022 by Garfield Pavon M.D. at [facility] Hardware e.g. pins/screws/ rods Ethicon [id number] 02/06/2027 LT100 / / [id number] Clp Hrzn Ti 6 Clp Md Anthony - [id number] Implanted:Qty : 1 on 06/11/2022 by Garfield Pavon M.D. at [facility] Hardware e.g. pins/screws/ rods [employer] [id number] 11/28/2026 [id number] / / [id number] Clp Hrzn Ti 6 Clp Md Anthony - [id number] Implanted:Qty : 1 on 06/12/2022 by Garfield Pavon M.D. at [facility] Hardware e.g. pins/screws/ rods [employer] [id number] 11/28/2026 [id number] / / [id number] Clp Lgc Lgt Ti Sm - [id number] Implanted:Qty : 1 on 06/12/2022 by Garfield Pavon M.D. at [facility] Hardware e.g. pins/screws/ rods Ethicon [id number] 02/06/2027 LT100 / / [id number] [facility] 0.88 - [id number] Implanted:Qty : 1 on 06/12/2022 by Garfield Pavon M.D. at [facility] Mesh or Patch Synovis 03/15/2023 [id number] / / [id number] Explanted Type Area Stress Engineer Device Identifier Shelf Expiration Date Model / Serial / Lot [facility] 4-7x45 - [id number] - [id number] Implanted:Qty : 1 on 06/06/2022 by Garfield Pavon M.D. at [facility] Explanted:Qty : 1 on 06/12/2022 by Alejandro Keller M.B.B.S. at [facility] Vascular Graft Left: Arterial [place] 11/01/2025 [id number] / [id number] / Description:Left upper extre mity graft Procedures Procedure Name Priority Date/Time Associated Diagnosis Comments EXTI POTASSIUM, S/P Routine 07/08/2023 1 2:15 PM CDT EXTI RENAL FUNCTION PANEL, S Routine 07/07/2023 12:12 PM CDT from Last 3 Months or Most Recently Relevant to Health Maintenance Advance Directives For more information, please contact: [phone] * Full Code (Latest Code Status on [...]
--- OUTSIDE RECORDS SUMMARY | 2023-09-27 09:55 | XMS_ITS | Referral Summary ---
Author Organization [facility] Address [address] [place] [address] Care Team Providers Care Income Tax Expert Name Role Phone Unavailable Primary Care Provider Unavailabl e Source Comments Patient records contain information from all sites at [facility]. For routine questions regarding patient records, call [phone] during business hours, M-F 8:00 AM - 5:00 PM Central Time. Record requests for emergency care only can be directed to [phone] at any time.[facility] Encounters Date Type Department Care Team Description 08/21/2023 Orders Only Division of Nephrology and Hypertension, [facility], in [place], [place] [address] [place] [address] Jenna Neri APRN, C.N.P., M.S.N. 08/20/2023 Orders Only Division of Nephrology and Hypertension, [facility], in [place], [place] [address] [place] [address] Jenna Neri APRN, C.N.P., M.S.N. from Last [...] Overview: Added automatically from request for surgery [id number] Hyperparathyroidism Renal Secondary 01/17/2021 Urinary Tract Infection [...] (145 lb 11.6 oz) 023 12:20 PM RELIEF PILOT Height 165.1 cm (5' 5) 2022 12:3 0 PM RELIEF PILOT Body Mass Index 24.25 2022 12:30 PM RELIEF PILOT Plan of Treatment Not on file Medical Devices Implanted Type Area Brim Plater Device Identifier Shelf Expiration Date Model / Serial / Lot Clp Lgc Lgt Ti Sm - [id number] Implanted:Qty : 1 on 06/06/2022 by Garfield Pavon M.D. at [facility] Hardware e.g. pins/screws/ rods Left: Arm [employer]icon LT100 / / Clp Hrzn Ti 6 Clp Anthony - [id number] Implanted:Qty : 1 on 06/06/2022 by Garfield Pavon M.D. at [facility] Hardware e.g. pins/screws/ rods Left: Arm [employer] [id number] / / Clp Lgc Lgt Ti Sm - [id number] Implanted:Qty : 1 on 06/11/2022 by Garfield Pavon M.D. at [facility] Hardware e.g. pins/screws/ rods Ethicon [id number] 02/06/2027 LT100 / / [id number] Clp Hrzn Ti 6 Clp Anthony - [id number] Implanted:Qty : 1 on 06/11/2022 by Garfield Pavon M.D. at [facility] Hardware e.g. pins/screws/ rods [employer] [id number] 11/28/2026 [id number] / / [id number] Clp Hrzn Ti 6 Clp Anthony - [id number] Implanted:Qty : 1 on 06/12/2022 by Garfield Pavon M.D. at [facility] Hardware e.g. pins/screws/ rods [employer] [id number] 11/28/2026 [id number] / / [id number] Clp Lgc Lgt Ti Sm - [id number] Implanted:Qty : 1 on 06/12/2022 by Garfield Pavon M.D. at [facility] Hardware e.g. pins/screws/ rods Ethicon [id number] 02/06/2027 LT100 / / 160C87 [facility] 0.88 - [id number] Implanted:Qty : 1 on 06/12/2022 by Garfield Pavon M.D. at [facility] Mesh or Patch [employer]is 03/15/2023 [id number] / / [id number] Explanted Type Area Brim Plater Device Identifier Shelf Expiration Date Model / Serial / Lot Roseann [facility] 4-7x45 - [id number] - [id number] Implanted:Qty : 1 on 06/06/2022 by Garfield Pavon M.D. at [facility] Explanted:Qty : 1 on 06/12/2022 by Alejandro Keller M.B.BGatitoSGatito at [facility] Vascular Graft Left: Arterial Economy 11/01/2025 [id number] / [id number] / Description:Left upper extre mity graft Procedures Procedure Name Priority Date/Time Associated Diagnosis Comments EXTI POTASSIUM, S/P Routine 07/08/2023 1 2:15 PM CDT EXTI RENAL FUNCTION PANEL, S Routine 07/07/2023 12:12 PM CDT from Last 3 Months or Most Recently Relevant to Health Maintenance Advance Directives For more information, please contact: [phone] * Full Code (Latest Code Status on [...]
--- OUTSIDE RECORDS SUMMARY | 2023-09-27 09:55 | XMS_ITS | Clinical Summary ---
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 Scanner 1 scan: (1-Ord) [facility], TRANSFORMAINAL EPIDURAL THERAPEUTIC INJ, 08/07/2023 4 12:34 PM CDT Anesthesia Event 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 [address] [place] [address] Kavin Fournier MD ESOPHAGOGASTRODUODENOSCOPY 4 Travel 4 9:06 PM CDT - 4 1:00 PM CDT Hospital Encounter [facility] [address] [place] [address] Lion Granados MD Weise, Lalita Cisneros MD [facility], [facility] Hospitalists Of Vikram Dias MD Kohlmeyer, Lore Trent MD Leg pain, bilateral (Primary Dx); HTN (hypertension); Multiple wounds of skin; Cerebrovascular accident (CVA), unspecified mechanism (HC); Constipation, unspecified constipation type; Open wound of left lower extremity, subsequent encounter; Difficulty sleeping; Pain Discharge Disposition: Custodial Facility from Last 3 Months Family History Medical [...] 06/07/1993 Medicare Wellness for age 65+ 06/07/2008 COVID-19 vaccine series (2022- season) 2023 01/30/2023, 01/16/2022, 01/20/2021 Influenza for age 65+ 12/09/2023 BMI (ht [...] Timed 06/29/2023 12:56 PM CDT SOLUBLE TRANSFERRIN SUPERVISOR FRAMING MILL JULY 2023 4:19 AM CDT FERRITIN JULY [...] CDT SCAN-CARDIAC STRIP 06/27/2023 1:24 AM CDT SCAN-BONE DENSITOMETRY DEXA 11/08 12:00 AM CDT from Last 3 Months or Most Recently Relevant to Health Maintenance Results * SCAN-OPERATIVE/PROCEDURE REPORT (08/07/2023 12:00 AM CDT) Scanner OTHER * (ABNORMAL) GLUCOSE METER (07/09/2023 6:23 AM CDT) Only the most recent of46 resultswithin the time period is included. GLUCOSE METER 143(H) 65 - 100 mg/dL 07/09/2023 6:24 AM CDT [facility] Blood BLOOD SPECIMEN / Unknown 07/09/2023 6:23 AM CDT 07/09/2023 6:24 AM CDT Vikram Dias MD CHEMISTRY [facility] [address] [place] [address], * Potassium AM (07/08/2023 12:15 PM CDT) Only the most recent of3 resultswithin the time period is included. POTASSIUM 4.2 3.5 - 5.1 mmol/L 07/08/2023 1:[address] [facility] Blood BLOOD SPECIMEN / Unknown Venipuncture / Unknown 07/08/2023 12:15 PM CDT 07/08/2023 12:23 PM CDT Lore Noble MD CHEMISTRY Performing Organization Address [facility] Co de Phone Number [facility] [address] [place] [address], [place] * WBC AM (07/08/2023 12:14 PM CDT) Only the most recent of4 resultswithin the time period is included. WHITE BLOOD COUNT 6.5 4.5 - 11.0 thou/cu mm 07/08/2023 12:47 PM CDT [facility] NRBC 0.0 % 07/08/2023 12:47 PM CDT [facility] ABS NRBC 0.0 thou /cu mm 07/08/2023 12:47 PM CDT [facility] Blood BLOOD SPECIMEN / Unknown Venipuncture / Unknown 07/08/2023 12:14 PM CDT 07/08/2023 12:23 PM CDT Lore Noble MD HEMATOLOGY Performing Organization Address [facility] Co de Phone Number [facility] [address] [place] [address], [place] * EXTRA TUBE GOLD/SST (07/07/2023 12:12 PM CDT) Blood BLOOD SPECIMEN / Unknown Non-Lab Venipuncture / Unknown 07/07/2023 12:12 PM CDT 07/07/2023 12:18 PM CDT Lore Noble MD LABORATORY Performing Organization Address City/[facility]/ZIP Co de Phone Number [facility] [address] [place] [address], [place] * (ABNORMAL) RENAL FUNCTION PANEL (07/07/2023 12:12 PM CDT) Only the most recent of5 resultswithin the time period is included. SODIUM 135(L) 136 - 145 mmol/L 07/07/2023 12:45 PM T [facility] POTASSIUM 4.2 3.5 - 5.1 mmol/L 07/07/2023 12:45 PM T [facility] CHLORIDE 96(L) 98 - 107 mmol/L 07/07/2023 12:45 PM T [facility] CO2,TOTAL 25 22 - 29 mmol/L 07/07/2023 12:45 PM T [facility] ANION GAP 14 5 - 18 07/07/2023 12:45 PM T [facility] GLUCOSE 104(H) 70 - 99 mg/dL 07/07/2023 12:45 PM T [facility] CALCIUM 9.7 8.8 - 10.2 mg/dL 07/07/2023 12:45 PM [facility] BUN 51(H) 8 - 23 mg/dL 07/07/2023 12:45 PM [facility] CREATININE 2.63(H) 0.50 - 0.90 mg/dL 07/07/2023 12:45 PM [facility] BUN/CREAT RATIO 19 10 - 20 12:45 PM [facility] eGFR 18(L) >90 mL/min/1.7 3m2 07/07/2023 12:45 PM [facility] Comment:As of 2021, eG FR is calculated by the CKD-EPI creatinine equation without race adjustment. ??eGFR can be influenced by muscle mass, exercise, and diet. ??The reported eGFR is an estimation only and is only applicable if the renal function is stable. PHOSPHORUS 3.2 2.5 - 4.5 mg/dL 07/07/2023 12:45 PM T [facility] ALBUMIN 3.6(L) 4.0 - 4.9 g/dL 07/07/2023 12:45 PM [facility] Blood BLOOD SPECIMEN / Unknown Venipuncture / Unknown 07/07/2023 12:12 PM CDT 07/07/2023 12:17 PM CDT Lore Noble MD CHEMISTRY Performing Organization Address [facility] Co de Phone Number [facility] [address] [address], * (ABNORMAL) HEMOGLOBIN (07/06/2023 3:52 PM CDT) Only the most recent of7 resultswithin the time period is included. [facility] HEMOGLOBIN 8.6(L) 12.0 - 16.0 g/dL 07/06/2023 4:16 PM CDT [facility] MCV 94 80 - 100 fL 07/06/2023 4:16 PM CDT [facility] Blood BLOOD SPECIMEN / Unknown Butterfly / Unknown 07/06/2023 3:52 PM CDT 07/06/2023 3:58 PM CDT Harjit Edwards MD HEMATOLOGY Performing Organization Address [facility] de Phone Number [facility] [address] [place] [address], [place] * CT head without contrast (07/05/2023 2:51 PM CDT) Anatomical Region Laterality Modality HEAD, BRAIN Computed Tomogra phy 07/05/2023 3:31 PM CDT Narrative 07/05/2023 3:31 PM CDT For Patients: ??As a result of the 21st Century Cures [...] * Cortisol AM (07/05/2023 1:30 PM CDT) CORTISOL,TOTAL 8.6 ug/dL 07/05/2023 2:43 PM CDT [facility] Blood BLOOD SPECIMEN / [...] prior to retesting. Lore Noble MD CHEMISTRY [facility] [address] [place] [address], * (ABNORMAL) BLOOD GAS,VENOUS (07/05/2023 1:30 PM CDT) PH, VENOUS 7.38 7.32 - 7.43 07/05/2023 1:47 PM CDT [facility] PCO2, VENOUS 50 41 - 51 mmHg 07/05/2023 1:47 PM CDT [facility] PO2, VENOUS 22(L) 35 - 40 mmHg 07/05/2023 1:47 PM CDT [facility] HCO3,VENOUS 30(H) 22 - 29 mmol/L 07/05/2023 1:47 PM CDT [facility] BASE EXCESS, VENOUS, POCT 3.4(H) -2.0 - 3.0 07/05/2023 1:47 PM CDT [facility] O2 SATURATION, VENOUS 48(L) 70 - 75 % 07/05/2023 1:47 PM CDT [facility] PATIENT TEMPERATURE 37.0 Degrees C 07/05/2023 1:47 PM CDT [facility] Blood BLOOD SPECIMEN / Unknown Butterfly / Unknown 07/05/2023 1:30 PM CDT 07/05/2023 1:42 PM CDT Lore Noble MD CHEMISTRY Performing Organization Address City/[facility]/ZIP Co de Phone Number [facility] [address] [address], [place] * (ABNORMAL) T3,TOTAL (07/05/2023 1:30 PM CDT) T3,TOTAL 63(L) 85 - 202 ng/dL 07/05/2023 3:[address] [facility] Blood BLOOD SPECIMEN / Unknown Butterfly / Unknown 07/05/2023 1:30 PM CDT 07/05/2023 1:42 PM CDT Lore Noble MD CHEMISTRY Performing Organization Address [facility] Co de Phone Number [facility] [address] [address], [place] * T4, free AM (07/05/2023 1:30 PM CDT) T4,FREE 1.28 0.93 - 1.70 ng/dL 07/05/2023 2:[address] [facility] Blood BLOOD SPECIMEN / Unknown Butterfly / Unknown 07/05/2023 1:30 PM CDT 07/05/2023 1:42 PM CDT Lore Noble MD CHEMISTRY Performing Organization Address City/[facility] Co de Phone Number [facility] [address] [address], [place] * (ABNORMAL) Vitamin B12 level AM (07/05/2023 1:30 PM CDT) Pathologist [facility] VITAMIN B12 1,627(H) 232 - 1,245 pg/mL 07/05/2023 2:44 PM CDT [facility] Blood BLOOD SPECIMEN / Unknown Butterfly / Unknown 07/05/2023 1:30 PM CDT 07/05/2023 1:[address] [facility] - 07/05/2023 2:44 PM CDT Biotin supplements may cause clinically significant interference for this test assay. ??If interference is suspected, it is strongly recommended that biotin is discontinued for at least one week prior to retesting. Lore Noble MD CHEMISTRY Performing Organization Address [facility]/ZIP Co de Phone Number [facility] [address] [address], [place] * (ABNORMAL) Ammonia TODAY (07/05/2023 1:30 PM CDT) [facility] AMMONIA 15(L) 16 - 60 umol/L 07/05/2023 2:[address] [facility] Blood BLOOD SPECIMEN / Unknown Butterfly / Unknown 07/05/2023 1:30 PM CDT 07/05/2023 1:[address] [facility] - 07/05/2023 2:46 PM CDT 1. ??Sulfasalazine and its metabolite Sulfapyridine at therapeutic concentrations may lead to falsely low results. 2. ??Temozolomide and its metabolite MTIC may lead to falsely elevated results, and its metabolite AIC may lead to falsely low results. Lore Noble MD CHEMISTRY Performing Organization Address City/[facility]/ZIP Co de Phone Number [facility] [address] [place] [address], [place] * Lipid Panel AM (07/04/2023 1:12 PM CDT) [facility] CHOLESTEROL,TOTAL 187 100 - 199 mg/dL 07/04/2023 1:50 PM CDT [facility] Comment: Cholesterol, Total Reference Ranges Desirable <200 mg/dL Borderline 200-239 mg/dL High >=240 mg/dL TRIGLYCERIDES 65 <150 mg/dL 07/04/2023 1:50 PM CDT [facility] HDL CHOLESTEROL 57 >40 mg/dL 1:50 PM CDT [facility] NON-HDL CHOLESTEROL 130 <145 mg/dl 07/04/2023 1:50 PM CDT [facility] CHOL/HDL RATIO 3.28 <4.50 07/04/2023 1:50 PM CDT [facility] LDL CHOLESTEROL 117 <=130 mg/dL 07/04/2023 1:50 PM CDT [facility] VLDL CHOLESTEROL 13 <=30 mg/dL 07/04/2023 1:50 PM CDT [facility] PROVIDER ORDERED STATUS RANDOM 07/04/2023 1:50 PM CDT [facility] Blood BLOOD SPECIMEN / Unknown Butterfly / Unknown 07/04/2023 1:12 PM CDT 07/04/2023 1:21 PM CDT Lore Noble MD CHEMISTRY [facility] [address] [address], [place] * [place] ARTERIAL LOWER EXTREMITY W [...] ? RIGHT PSV T, M ??VELOCITY RATIO PHOTO LAB MANAGER Proximal ??447 458 M ?? PHOTO LAB MANAGER Distal 397 395 M ?? PFA 172 M ?? SFA Proximal ?? 66 96 M ?? SFA Mid ??116 77 M ?? SFA Distal ?? 33 28 M ?? POP Proximal ?? 36 M ?? POP Distal ??42 M ?? TEACHER VISUALLY IMPAIRED ??- ?? KAYA ?? 37 M ?? DPA ??33 M ?? T = Multiphasic; M = Monophasic ?? LEFT PSV T, M VELOCITY RATIO PHOTO LAB MANAGER Proximal ??251 M ?? PHOTO LAB MANAGER Distal 211 M ?? PFA 166 M ?? SFA Proximal ?? 57 43 M ?? SFA Mid ?? 30 19 M ?? SFA Distal ?? 15 M ?? POP Proximal ?? 48 M ?? POP Distal ??54 M ?? TEACHER VISUALLY IMPAIRED ??44 M ?? KAYA ?? 25 M [...] * HBSAG (HBS) (07/03/2023 11:18 AM CDT) HBSAG Nonreactive Nonreactive 07/04/2023 8:42 AM CDT [facility] Blood BLOOD SPECIMEN / Unknown Venipuncture / Unknown 07/03/2023 11:18 AM CDT 07/03/2023 11:45 AM CDT [facility] Performing Organization Address City/[facility]/ZIP Co de Phone Number [facility] [address] [place] [address], [place] * Sodium TODAY (07/01/2023 2:52 PM CDT) SODIUM 136 136 - 145 mmol/L 07/01/2023 4:02 PM CDT [facility] Blood BLOOD SPECIMEN / Unknown Butterfly / Unknown 07/01/2023 2:52 PM CDT 07/01/2023 3:02 PM CDT Vikram Dias MD CHEMISTRY Performing Organization Address [facility] Co de Phone Number [facility] [address] [place] [address], [place] * SOLUBLE TRANSFERRIN SUPERVISOR FRAMING MILL (06/29/2023 4:19 AM CDT) MECCA.TRANSFERRI N RECEPTOR 2.20 1.90 - 4.40 mg/L 06/30/2023 11:04 AM CDT [facility] Blood BLOOD SPECIMEN / Unknown Butterfly / Unknown 06/29/2023 4:19 AM CDT 06/29/2023 5:30 AM CDT Vikram Dias MD SEND OUTS Performing Organization Address City/[facility] Co de Phone Number [facility] [address] [place] [address], [place] * (ABNORMAL) FERRITIN (06/29/2023 4:19 AM CDT) FERRITIN 1,209.0(H) 15.0 - 150.0 ng/mL 06/30/2023 11:03 AM CDT [facility] Blood BLOOD SPECIMEN / Unknown Butterfly / Unknown 06/29/2023 4:19 AM CDT 06/29/2023 5:30 AM CDT Vikram Dias MD CHEMISTRY Performing Organization Address [facility] Co de Phone Number [facility] [address] [place] [address], * SCAN-CARDIAC STRIP (06/29/2023 2:29 AM CDT) Scanner OTHER * CLOSTRIDIOIDES DIFFICILE TOXIN PCR (06/28/2023 4:18 PM CDT) CLOSTRIDIUM DIFFICILE PCR Negative 06/28/2023 6:09 PM CDT [facility] PRESUMPTIVE NAP1 STRAIN Negative 06/28/2023 6:09 PM CDT [facility] Stool STOOL SPECIMEN / Unknown Non-Blood / Unknown 06/28/2023 4:18 PM CDT 06/28/2023 4:32 PM CDT Narrative [facility] - 06/28/2023 6:09 PM CDT The NAP1 (027 or BI) strain is a hypervirulent strain. Detection may be useful for epidemiological purposes. Vikram Dias MD MICROBIOLOGY Performing Organization Address [facility] Co de Phone Number [facility] [address] [place] [address], * (ABNORMAL) Basic metabolic panel AM (06/28/2023 2:52 PM CDT) Only the most recent of2 resultswithin the time period is included. SODIUM 135(L) 136 - 145 mmol/L 06/28/2023 4:11 PM CDT [facility] POTASSIUM 3.3(L) 3.5 - 5.1 mmol/L 06/28/2023 4:11 PM CDT [facility] CHLORIDE 96(L) 98 - 107 mmol/L 06/28/2023 4:11 PM CDT [facility] CO2,TOTAL 25 22 - 29 mmol/L 06/28/2023 4:11 PM CDT [facility] ANION GAP 14 5 - 18 06/28/2023 4:11 PM CDT [facility] GLUCOSE 158(H) 70 - 99 mg/dL 06/28/2023 4:11 PM CDT [facility] CALCIUM 9.2 8.8 - 10.2 mg/dL 06/28/2023 4:11 PM CDT [facility] BUN 32(H) 8 - 23 mg/dL 06/28/2023 4:11 PM T [facility] CREATININE 1.83(H) 0.50 - 0.90 mg/dL 06/28/2023 4:11 PM T [facility] BUN/CREAT RATIO 17 10 - 20 4:11 PM CDT [facility] eGFR 28(L) >90 mL/min/1.7 3m2 06/28/2023 4:11 PM CDT [facility] Comment:As of 2021, eG [...] 3:00 PM CDT Vikram Dias MD CHEMISTRY [facility] [address] [place] [address], * ECHO TTE COMPLETE WO CONTRAST (06/28/2023 2:32 PM CDT) AORTIC VALVE MEAN PG 6 mmHg EJECTION FRACTION 71 % PEAK TR VELOCITY 2.6 m/s LVEDD 4.4 cm Anatomical Region Laterality Modality Ultrasound 06/28/2023 12:5 0 PM CDT Narrative 06/28/2023 2:49 PM CDT ECHOCARDIOGRAM CYNTHIA HOLBROOK ?Accession#: ?? [id number] : ?1945 78 years Study Date: ?? 06/28/2023 12:50:33 PM Gender: F ? BP: ? 196/84 mmHg Height: 154.00 cm ? BSA: ?1.66 m? ? ? Weight: 68.00 kg ?Tech: ? AH ?Referring MD: LISBET MENJIVAR Site: ? [facility] Reading Location: [facility] Patient Location: Procedure: 2D, Spectral Doppler [...] . This study was interpreted by an [facility] accredited facility. ??Final ?? Procedure Note Hanna [address], [facility] - 06/28/2023 ECHOCARDIOGRAM CYNTHIA HOLBROOK : 1945 78 years Study Date: 06/28/2023 12:50:33 PM Gender: F BP: 196/84 mmHg Height: 154.00 cm BSA: 1.66 m? ? ? Weight: 68.00 kg Tech: [facility] MD: LISBET MENJIVAR Site: [facility] Reading Location: [facility] Patient Location: Procedure: 2D, Spectral Doppler [...] . This study was interpreted by an [facility] accredited facility. Final Lisbet KEEN ECHO ORD * SCAN-CARDIAC STRIP (06/28/2023 1:02 AM CDT) Scanner OTHER * ENDOSCOPY (06/27/2023 11:26 AM CDT) 06/27/2023 11:2 6 AM CDT Narrative Transcriptions Kavin Fournier MD - 06/27/2023 1:00 PM CDT [facility] Patient Name: Cynthia Holbrook Procedure Date: 06/27/2023 Gender: Female Date of : 1945 Admit Type: Inpatient Procedure: Upper GI endoscopy Proceduralist: Kavin Rangel MD - [facility] Indications/Pre-Op Diagnosis: Unexplained iron deficiency anemia, recent Stephani Cardoza tear treated at an outside hospital Medications: Monitored Anesthesia Care Procedure Description: Risk of bleeding, infection, perforation, need for surgery and alternatives discussed. The endoscope [id number] was introduced through the mouth, and advanced [...] no diff AM (06/27/2023 6:06 AM CDT) WHITE BLOOD COUNT 7.0 4.5 - 11.0 thou/cu mm 06/27/2023 6:25 AM CDT [facility] RED BLOOD COUNT 2.51(L) 4.00 - 5.20 mil/cu mm 06/27/2023 6:25 AM CDT [facility] HEMOGLOBIN 7.3(L) 12.0 - 16.0 g/dL 06/27/2023 6:25 AM CDT [facility] HEMATOCRIT 22.4(L) 33.0 - 51.0 % 06/27/2023 6:25 AM CDT [facility] MCV 89 80 - 100 fL 06/27/2023 6:25 AM CDT [facility] MCH 29.1 26.0 - 34.0 pg 06/27/2023 6:25 AM CDT [facility] MCHC 32.6 32.0 - 36.0 g/dL 06/27/2023 6:25 AM CDT [facility] RDW 16.3(H) 11.5 - 15.5 % 06/27/2023 6:25 AM CDT [facility] PLATELET COUNT 251 140 - 440 thou/cu mm 06/27/2023 6:25 AM CDT [facility] MPV 10.2 6.5 - 11.0 fL 06/27/2023 6:25 AM CDT [facility] NRBC 0.0 % 06/27/2023 6:25 AM CDT [facility] ABS NRBC 0.0 thou /cu mm 06/27/2023 6:25 AM CDT [facility] Blood BLOOD SPECIMEN / Unknown Venipuncture / Unknown 06/27/2023 6:06 AM CDT 06/27/2023 6:16 AM CDT Vikram Dias MD HEMATOLOGY [facility] [address] [place] [address], * SCAN-CARDIAC STRIP (06/27/2023 1:24 AM CDT) Scanner OTHER * SCAN-BONE DENSITOMETRY DEXA (12/02/2018 12:00 AM CDT) Anatomical Region Laterality Modality Other Scanner OTHER from Last 3 Months or Most Recently Relevant to Health Maintenance Advance Directives Documents on File Type Date Recorded Patient Front Desk Auxiliary Dayron ARCINIEGA 12/01/2021 * Full Code (Latest Code Status [...] Comments Code Status Discussion: Discussed Care Teams Youth Development Professional Relationship Specialty Start Date End Date Erickson Vinson MD [address] [place] [address] PCP - General Family Practice 02/01/23
--- OUTSIDE RECORDS SUMMARY | 2023-09-27 09:55 | XMS_ITS ---
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
--- OUTSIDE RECORDS SUMMARY | 2023-09-27 09:56 | XMS_ITS | Clinical Summary ---
Author Organization [facility] Address [address] [place] [id number] Care Team Providers Care Industrial Millwright Name Role Phone Eusebia Whitaker Primary Care Provider [phone] Allergies No known active allergies Medications Medication [...] of Treatment Not on file Care Teams Industrial Millwright Relationship Specialty Start Date End Date Eusebia Whitaker [facility] [address] [place] [address] PCP - General Family Practice 09/25/19
--- OUTSIDE RECORDS SUMMARY | 2023-09-27 09:56 | XMS_ITS | Encounter Summary ---
Author Organization [facility] Address [address] [place] [address] Care Team Providers Care Lehr Loader Name Role Phone Unavailable Primary Care Provider Unavailabl e Encounter Details Date Type Department Care Team (Late st Contact Info) Description 08/21/2023 Orders Only Division of Nephrology and Hypertension, [facility], in [place], [place] [address] [place] [phone] Jenna Neri, GLADYS, C.N.P., M.S.N. [address] [place] [phone] Social History Tobacco Use Types Packs/Day Years [...]
--- OUTSIDE RECORDS SUMMARY | 2023-09-27 09:56 | XMS_ITS | Referral Summary ---
Author Organization [facility] Address [address] [place] [address] Care Team Providers Care Preschool Paraprofessional Name Role Phone Eusebia Whitaker Primary Care Provider [phone] Allergies No known active allergies Medications Medication [...] of Treatment Not on file Care Teams Preschool Paraprofessional Relationship Specialty Start Date End Date Eusebia Whitaker [facility] [address] [place] [address] PCP - General Family Practice 09/25/19
--- OUTSIDE RECORDS SUMMARY | 2023-09-27 09:56 | XMS_ITS | Encounter Summary ---
Author Organization [facility] Address [address] [place] [address] Care Team Providers Care Talent Acquisition Lead Name Role Phone Unavailable Primary Care Provider Unavailabl e Encounter Details Date Type Department Care Team (Late st Contact Info) Description 08/20/2023 Orders Only Division of Nephrology and Hypertension, [facility], in [place], [place] [address] [place] [phone] Jenna Neri, GLADYS, C.N.P., M.S.N. [address] [place] [phone] Social History Tobacco Use Types Packs/Day Years [...]
== END 2023-09-27 09:53 | disposition home or self-care (01) ==
LOC: WOUND 09:52
PROVIDERS: PCP Family Medicine; Visit Provider Physician Assistant
DX: I73.9 Peripheral vascular disease, unspecified (principal); L97.221 Non-pressure chronic ulcer of left calf limited to breakdown of skin; Z99.3 Dependence on wheelchair
CPT/HCPCS: 97602

== ENCOUNTER 2023-10-18 09:00 | Outpatient (CLI) | payer OTHER, SELFPAY ==
--- OUTSIDE RECORDS SUMMARY | 2023-10-18 09:03 | XMS_ITS ---
Author Organization [facility] Address [address] [place] [address] Care Team Providers Care Helicopter Officer Name Role Phone Unavailable Unavailable Unavailable Surgery Details Not on file Complications Check Surgery Details section. Procedure Estimated Blood Loss Check Surgery Details section. Procedure Findings Check Surgery Details section. Procedure Specimens Taken Check Surgery Details section.
--- OUTSIDE RECORDS SUMMARY | 2023-10-18 09:03 | XMS_ITS | Encounter Summary ---
Author Organization [facility] Address [address] [place] [address] Care Team Providers Care Lighter Captain Name Role Phone Unavailable Primary Care Provider Unavailabl e Encounter Details Date Type Department Care Team (Late st Contact Info) Description 08/20/2023 Orders Only Division of Nephrology and Hypertension, [facility], in [place], [place] [address] [place] [phone] Jenna Neri, GLADYS, C.N.P., M.S.N. [address] [place] [phone] Social History Tobacco Use Types Packs/Day Years [...]
--- OUTSIDE RECORDS SUMMARY | 2023-10-18 09:03 | XMS_ITS | Encounter Summary ---
Author Organization [facility] Address [address] [place] [address] Care Team Providers Care Marine Diver Name Role Phone Unavailable Primary Care Provider Unavailabl e Encounter Details Date Type Department Care Team (Late st Contact Info) Description 08/21/2023 Orders Only Division of Nephrology and Hypertension, [facility], in [place], [place] [address] [place] [phone] Jenna Neri, GLADYS, C.N.P., M.S.N. [address] [place] [phone] Social History Tobacco Use Types Packs/Day Years [...]
--- OUTSIDE RECORDS SUMMARY | 2023-10-18 09:03 | XMS_ITS | Clinical Summary ---
Author Organization [facility] Address [address] [place] [address] Care Team Providers Care Investor Relations Director Name Role Phone Eusebia Whitaker Primary Care [...] of Treatment Not on file Care Teams Investor Relations Director Relationship Specialty Start Date End Date Eusebia Whitaker [facility] [address] [place] [address] PCP - General Family Practice 09/25/19
--- OUTSIDE RECORDS SUMMARY | 2023-10-18 09:03 | XMS_ITS | Clinical Summary ---
Author Organization [facility] Address [place], [place] [address] Care Team Providers Care Voice Teacher Name Role Phone Erickson Vinson MD Primary [...] Patient taking differently:1 mg OralDAILY AFTERNOON, Informant: Residential [place], Reported on 06/25/2023 pantoprazole (PROTONIX) 40 [...] Overview: Added automatically from request for surgery [id number] Subacute bacterial endocarditis 11/30/2021 PAF (paroxysmal atrial [...] Encounters Date Type Department Care Team Description 08/07/2023 Orders Only [facility] Scanner 1 scan: (1-Ord) [facility], TRANSFORMAINAL EPIDURAL THERAPEUTIC INJ, 08/07/2023 from Last 3 Months Family History Medical [...] for age 65+ 06/07/2008 COVID-19 vaccine series ( season) 2023 01/30/2023, 01/16/2022, 01/20/2021 Influenza for age 65+ 12/09/2023 BMI (ht and wt on same day) for age 18+ 05/01/2024 05/01/2023, 05/09/2022, 05/02/2022, Additional history exists DEXA/DXA scan for age 65+ Completed 12/02/2018 Procedures Procedure Name Priority Date/Time Associated Diagnosis Comments SCAN-OPERATIVE/PROCED URE REPORT 08/07/2023 12:00 AM CDT SCAN-BONE DENSITOMETRY DEXA 12/02/2018 12:00 AM CDT from Last 3 Months or Most Recently Relevant to Health Maintenance Results * SCAN-OPERATIVE/PROCEDURE REPORT (08/07/2023 12:00 AM CDT) Scanner OTHER * SCAN-BONE DENSITOMETRY DEXA (12/02/2018 12:00 AM CDT) Anatomical Region Laterality Modality Other Scanner OTHER from Last 3 Months or Most Recently Relevant to Health Maintenance Advance Directives Documents on File Type Date Recorded Patient Supervisor Major Appliance Assembly Expl anatmagno POLST 12/01/2021 * Full Code (Latest Code [...] Comments Code Status Discussion: Discussed Care Teams Voice Teacher Relationship Specialty Start Date End Date Erickson Vinson MD [address] [place] [address] PCP - General Family Practice 02/01/23
--- OUTSIDE RECORDS SUMMARY | 2023-10-18 09:03 | XMS_ITS ---
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
--- OUTSIDE RECORDS SUMMARY | 2023-10-18 09:03 | XMS_ITS | Referral Summary ---
Author Organization [facility] Address [address] [place] [address] Care Team Providers Care Mechanic Name Role Phone Unavailable Primary Care Provider Unavailabl e Source Comments Patient records contain information from all sites at [facility]. For routine questions regarding patient records, call [phone] during business hours, M-F 8:00 AM - 5:00 PM Central Time. Record requests for emergency care only can be directed to [phone] at any time.[facility] Encounters Date Type Department Care Team Description 08/21/2023 Orders Only Division of Nephrology and Hypertension, [facility], in [place], [place] [address] [place] [address] Jenna Neri APRN, C.N.P., M.S.N. 08/20/2023 Orders Only Division of Nephrology and Hypertension, [facility], in [place], [place] [address] [place] [address] Jenna Neri APRN, C.N.P., M.S.N. from Last [...] Overview: Added automatically from request for surgery [id number] Hyperparathyroidism Renal Secondary 01/17/2021 Urinary Tract Infection [...] (145 lb 11.6 oz) 023 12:20 PM RESIDENT ADVISOR Height 165.1 cm (5' 5) 2022 12:3 0 PM RESIDENT ADVISOR Body Mass Index 24.25 2022 12:30 PM RESIDENT ADVISOR Plan of Treatment Not on file Medical Devices Implanted Type Area Geographic Information System Surveyor Device Identifier Shelf Expiration Date Model / Serial / Lot Clp Lgc Lgt Ti Sm - [id number] Implanted:Qty : 1 on 06/06/2022 by Garfield Pavon M.D. at [facility] Hardware e.g. pins/screws/ rods Left: Arm Ethicon LT100 / / Clp Hrzn Ti 6 Clp Anthony - [id number] Implanted:Qty : 1 on 06/06/2022 by Garfield Pavon M.D. at [facility] Hardware e.g. pins/screws/ rods Left: Arm [employer] [id number] / / Clp Lgc Lgt Ti Sm - [id number] Implanted:Qty : 1 on 06/11/2022 by Garfield Pavon M.D. at [facility] Hardware e.g. pins/screws/ rods Ethicon [id number] 02/06/2027 LT100 / / [id number] Clp Hrzn Ti 6 Clp Anthony - [id number] Implanted:Qty : 1 on 06/11/2022 by Garfield Pavon M.D. at [facility] Hardware e.g. pins/screws/ rods [employer] [id number] 11/28/2026 [id number] / / [id number] Clp Hrzn Ti 6 Clp Anthony - [id number] Implanted:Qty : 1 on 06/12/2022 by Garfield Pavon M.D. at [facility] Hardware e.g. pins/screws/ rods [employer] [id number] 11/28/2026 [id number] / / [id number] Clp Lgc Lgt Ti Sm - [id number] Implanted:Qty : 1 on 06/12/2022 by Garfield Pavon M.D. at [facility] Hardware e.g. pins/screws/ rods Ethicon [id number] 02/06/2027 LT100 / / [id number] Roseann Vsc 0.88 - [id number] Implanted:Qty : 1 on 06/12/2022 by Garfield Pavon M.D. at [facility] Mesh or Patch Synovis 03/15/2023 [id number] / / [id number] Explanted Type Area Geographic Information System Surveyor Device Identifier Shelf Expiration Date Model / Serial / Lot Roseann [facility] 4-7x45 - [id number] - [id number] Implanted:Qty : 1 on 06/06/2022 by Garfield Pavon M.D. at [facility] Explanted:Qty : 1 on 06/12/2022 by Alejandro Keller M.B.BGatitoSGatito at [facility] Vascular Graft Left: Arterial [place] 11/01/2025 [id number] / [id number] / Description:Left upper extre mity graft Procedures Procedure Name Priority Date/Time Associated Diagnosis Comments EXTI POTASSIUM, S/P Routine 07/08/2023 1 2:15 PM CDT EXTI RENAL FUNCTION PANEL, S Routine 07/07/2023 12:12 PM CDT from Last 3 Months or Most Recently Relevant to Health Maintenance Advance Directives For more information, please contact: [phone] * Full Code (Latest Code Status on [...]
--- OUTSIDE RECORDS SUMMARY | 2023-10-18 09:03 | XMS_ITS | Clinical Summary ---
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
--- OUTSIDE RECORDS SUMMARY | 2023-10-18 09:03 | XMS_ITS | Clinical Summary ---
Author Organization [facility] Address [address] [place] [address] Care Team Providers Care Telephone Order Supervisor Name Role Phone Unavailable Primary Care Provider Unavailabl e Source Comments Patient records contain information from all sites at [facility]. For routine questions regarding patient records, call [phone] during business hours, M-F 8:00 AM - 5:00 PM Central Time. Record requests for emergency care only can be directed to [phone] at any time.[facility] Allergies Active Allergy Reactions Criticality Noted [...] Overview: Added automatically from request for surgery [id number] Hyperparathyroidism Renal Secondary 01/17/2021 Urinary Tract Infection [...] Orders Only Division of Nephrology and Hypertension, [place], [place] [address] [place] [address] Jenna Neri APRN C.N.P., M.S.N. 08/20/2023 Orders Only Division of Nephrology and Hypertension, [place], [place] [address] [place] [address] Jenna Neri APRN C.N.P., M.S.N. from Last [...] (145 lb 11.6 oz) 023 12:20 PM ENTERTAINER & COMIC Height 165.1 cm (5' 5) 2022 12:3 0 PM ENTERTAINER & COMIC Body Mass Index 24.25 2022 12:30 PM ENTERTAINER & COMIC Plan of Treatment Health Maintenance Due Date Last Done Comments Office Visit for Blood Press ure Check / Re-check 1945 Hepatitis B Vaccines (1 of 3 - Risk Dialysis 4-dose series) 1963 Zoster Vaccines (1 of 2) 11/17/2015 09/22/2015 Depression Screening (Annual PHQ-2) 04/09/2023 Fall Risk Screen (Annual) 04/09/2023 COVID-19 Vaccine (2022-2 4 season) 2023 01/30/2023, 01/16/2022, 01/20/2021, Additional history exists Influenza Vaccine (#1) 2024 , 01/12/2021, 01/20/2020, Additional history exists Creatinine Level (Kidney Fun ction Test) 07/06/2024 07/07/2023, 07/06/2023, 07/05/2023, Additional history exists Sodium Level 07/06/2024 07/07/2023, 06/08, 07/05/2023, Additional history exists Potassium Level 07/07/2024 07/08/2023, 06/09, 07/06/2023, Additional history exists DTaP,Tdap,and Td Vaccines (2 - Td or Tdap) 11/14/2027 11/13/2017 Pneumococcal vaccine (65+ years) Completed 08/19/19 16, 01/20/2010 Medical Devices Implanted Type Area Concrete Bucket Loader Device Identifier Shelf Expiration Date Model / Serial / Lot Clp Lgc Lgt Ti Sm - [id number] Implanted:Qty : 1 on 06/06/2022 by Garfield Pavon M.D. at [facility] Hardware e.g. pins/screws/ rods Left: Arm Ethicon LT100 / / Clp Hrzn Ti 6 Clp Md Anthony - [id number] Implanted:Qty : 1 on 06/06/2022 by Garfield Pavon M.D. at [facility] Hardware e.g. pins/screws/ rods Left: Arm [employer] [id number] / / Clp Lgc Lgt Ti Sm - [id number] Implanted:Qty : 1 on 06/11/2022 by Garfield Pavon M.D. at [facility] Hardware e.g. pins/screws/ rods Ethicon [id number] 02/06/2027 LT100 / / [id number] Clp Hrzn Ti 6 Clp Md Anthony - [id number] Implanted:Qty : 1 on 06/11/2022 by Garfield Pavon M.D. at [facility] Hardware e.g. pins/screws/ rods [employer] [id number] 11/28/2026 [id number] / / [id number] Clp Hrzn Ti 6 Clp Md Anthony - [id number] Implanted:Qty : 1 on 06/12/2022 by Garfield Pavon M.D. at [facility] Hardware e.g. pins/screws/ rods [employer] [id number] 11/28/2026 [id number] / / [id number] Clp Lgc Lgt Ti Sm - [id number] Implanted:Qty : 1 on 06/12/2022 by Garfield Pavon M.D. at [facility] Hardware e.g. pins/screws/ rods Ethicon [id number] 02/06/2027 LT100 / / [id number] [facility] 0.88 - [id number] Implanted:Qty : 1 on 06/12/2022 by Garfield Pavon M.D. at [facility] Mesh or Patch Synovis 03/15/2023 [id number] / / [id number] Explanted Type Area Concrete Bucket Loader Device Identifier Shelf Expiration Date Model / Serial / Lot [facility] 4-7x45 - [id number] - [id number] Implanted:Qty : 1 on 06/06/2022 by Garfield Pavon M.D. at [facility] Explanted:Qty : 1 on 06/12/2022 by Alejandro Keller M.B.B.S. at [facility] Vascular Graft Left: Arterial [place] 11/01/2025 [id number] / [id number] / Description:Left upper extre mity graft Procedures Procedure Name Priority Date/Time Associated Diagnosis Comments EXTI POTASSIUM, S/P Routine 07/08/2023 1 2:15 PM CDT EXTI RENAL FUNCTION PANEL, S Routine 07/07/2023 12:12 PM CDT from Last 3 Months or Most Recently Relevant to Health Maintenance Advance Directives For more information, please contact: [phone] * Full Code (Latest Code Status on [...]
--- OUTSIDE RECORDS SUMMARY | 2023-10-18 09:04 | XMS_ITS | Referral Summary ---
Author Organization [facility] Address [address] [place] [address] Care Team Providers Care Technical Staff Engineer Name Role Phone Eusebia Whitaker Primary Care Provider [phone] Allergies No known active allergies Medications Medication [...] of Treatment Not on file Care Teams Technical Staff Engineer Relationship Specialty Start Date End Date Eusebia Whitaker [facility] [address] [place] [address] PCP - General Family Practice 09/25/19
== END 2023-10-18 09:01 | disposition home or self-care (01) ==
LOC: WOUND 09:00
PROVIDERS: PCP Family Medicine; Visit Provider Nurse Practitioner Family
DX: I73.9 Peripheral vascular disease, unspecified (principal); L97.228 Non-pressure chronic ulcer of left calf with other specified severity; Z99.3 Dependence on wheelchair
CPT/HCPCS: G0463

== ENCOUNTER 2023-11-29 09:55 | Outpatient (CLI) | payer OTHER, SELFPAY ==
--- OUTSIDE RECORDS SUMMARY | 2023-11-29 09:57 | XMS_ITS | Referral Summary ---
Author Organization [facility] Address [address] [place] [address] Care Team Providers Care Line Patrolman Name Role Phone Unavailable Primary Care Provider Unavailabl e Source Comments Patient records contain information from all sites at [facility]. For routine questions regarding patient records, call [phone] during business hours, M-F 8:00 AM - 5:00 PM Central Time. Record requests for emergency care only can be directed to [phone] at any time.[facility] Encounters Date Type Department Care Team Description 11/07/2023 Orders Only Division of Nephrology and Hypertension, [facility], in [place], [place] [address] [place] [address] Jenna Neri, GLADYS, C.N.P., M.S.N. 10/29/2023 Documentation Division of Nephrology and Hypertension in [place], [place] [address] [place] [address] Randal Weeks Jr., D.O. 10/29/2023 Orders Only Division of Nephrology and Hypertension in [place], [place] [address] [place] [address] Randal Weeks Jr., D.O. from Last 3 Months Allergies Active Allergy [...] BID non-dialysis days 150 tablet 3 11/29/2022 Active mirtazapine (Remeron) 30 mg tablet Take 1 tablet (30 mg total) by mouth at bedtime. 90 tablet 3 10/29/2023 Active Active Problems Problem Noted Date Diagnosed [...] St age Renal Disease Dialysis Dependent 05/19/2022 Overview (05/19/2022): Added automatically from request for surgery [id number] Hyperparathyroidism Renal Secondary 01/17/2021 Urinary Tract Infection Site Not Specified 06/09 Apnea Sleep Obstructive 04/28/2020 Chronic Kidney Disease Stage 5 Glomerular Filtration Rate Less Than 15 01/07/2020 Hypertensive Chronic Kidney Disease With Stage 5 Chronic Kidney Disease Or End Stage Renal Disease 01/07/2020 Chronic Right Heart Failure 01/07/2020 Anemia [...] (145 lb 11.6 oz) 023 12:20 PM LICENSED PRACTICAL VOCATIONAL NURSE Height 165.1 cm (5' 5) 2022 12:3 0 PM LICENSED PRACTICAL VOCATIONAL NURSE Body Mass Index 24.25 2022 12:30 PM LICENSED PRACTICAL VOCATIONAL NURSE Plan of Treatment Not on file Medical Devices Implanted Type Area Cigar Head Puncher Device Identifier Shelf Expiration Date Model / Serial / Lot Clp Lgc Lgt Ti Sm - [id number] Implanted:Qty : 1 on 06/06/2022 by Garfield Pavon M.D. at [facility] Hardware e.g. pins/screws/ rods Left: Arm Ethicon LT100 / / Clp Hrzn Ti 6 Clp Anthony - [id number] Implanted:Qty : 1 on 06/06/2022 by Garfield Pavon M.D. at [facility] Hardware e.g. pins/screws/ rods Left: Arm [employer] [id number] / / Clp Lgc Lgt Ti Sm - [id number] Implanted:Qty : 1 on 06/11/2022 by Garfield Pavon M.D. at [facility] Hardware e.g. pins/screws/ rods Ethicon [id number] 02/06/2027 LT100 / / [id number] Clp Hrzn Ti 6 Clp Anthony - [id number] Implanted:Qty : 1 on 06/11/2022 by Garfield Pavon M.D. at [facility] Hardware e.g. pins/screws/ rods [employer] [id number] 11/28/2026 [id number] / / [id number] Clp Hrzn Ti 6 Clp Anthony - [id number] Implanted:Qty : 1 on 06/12/2022 by Garfield Pavon M.D. at [facility] Hardware e.g. pins/screws/ rods [employer] [id number] 11/28/2026 [id number] / / [id number] Clp Lgc Lgt Ti Sm - [id number] Implanted:Qty : 1 on 06/12/2022 by Garfield Pavon M.D. at [facility] Hardware e.g. pins/screws/ rods Ethicon [id number] 02/06/2027 LT100 / / [id number] Gr Vsc 0.88 - [id number] Implanted:Qty : 1 on 06/12/2022 by Garfield Pavon M.D. at [facility] Mesh or Patch Synovis 03/15/2023 [id number] / / [id number] Explanted Type Area Cigar Head Puncher Device Identifier Shelf Expiration Date Model / Serial / Lot [facility] 4-7x45 - [id number] - [id number] Implanted:Qty : 1 on 06/06/2022 by Garfield Pavon M.D. at [facility] Explanted:Qty : 1 on 06/12/2022 by Alejandro Keller M.B.B.S. at [facility] Vascular Graft Left: Arterial [place] 11/01/2025 [id number] / [id number] / Description:Left upper extre mity graft Procedures Procedure Name Priority Date/Time Associated Diagnosis Comments BASIC METABOLIC PANEL, S/P Routine 06/19/2022 4:56 AM CDT from Last 3 Months or Most Recently Relevant to Health Maintenance Results * (ABNORMAL) Basic Metabolic Panel (06/19/2022 4:56 AM CDT) Potassium, S 4.1 3.6 - 5.2 mmol/L 06/19/2022 6:14 AM CDT DTL Sodium, S 132(L) 135 - 145 mmol/L 06/19/2022 6:14 AM CDT DTL Chloride, S 96(L) 98 - 107 mmol/L 06/19/2022 6:14 AM CDT DTL Bicarbonate, S 25 22 - 29 mmol/L 06/19/2022 6:14 AM CDT DTL Anion Gap 11 7 - 15 06/19/2022 6:14 AM CDT DTL BUN (Blood Urea Nitrogen), S 14 6 - 21 mg/dL 06/19/2022 6:14 AM CDT DTL Creatinine 2.46(H) 0.59 - 1.04 mg/dL 06/19/2022 6:14 AM CDT DTL Estimated GFR (eGFR) 19(L) >=60 mL/min/BSA 06/19/2022 6:14 AM CDT DTL Comment: Estimated GFR calculated using the 2020 CKD_EPI creatinine equation. Calcium, Total, S 7.7(L) 8.8 - 10.2 mg/dL 06/19/2022 6:14 AM CDT DTL Glucose, S 74 70 - 140 mg/dL 06/19/2022 6:14 AM CDT DTL Blood (Blood, Venous) 06/19/2022 4:56 AM CDT 06/19/2022 5:57 AM CDT Chance Santos M.D. LAB BLOOD ADD-ON [facility] [address] [place] [address], [facility] [address] [place] [address] from Last 3 Months or Most Recently Relevant to Health Maintenance Advance Directives For more information, please contact: [phone] * Full Code (Latest Code Status on [...]
--- OUTSIDE RECORDS SUMMARY | 2023-11-29 09:57 | XMS_ITS | Encounter Summary ---
Author Organization [facility] Address [address] [place] [address] Care Team Providers Care Housing Manager Name Role Phone Unavailable Primary Care Provider Unavailabl e Encounter Details Date Type Department Care Team (Late st Contact Info) Description 11/07/2023 Orders Only Division of Nephrology and Hypertension, [facility], in [place], [place] [address] [place] [phone] Jenna Neri, GLADYS, C.N.P., M.S.N. [address] [place] [phone] Social History Tobacco Use Types Packs/Day Years [...]
--- OUTSIDE RECORDS SUMMARY | 2023-11-29 09:57 | XMS_ITS ---
Author Organization [facility] Address [address] [place] [address] Care Team Providers Care Card Lacer Name Role Phone Unavailable Unavailable Unavailable Surgery Details Not on file Complications Check Surgery Details section. Procedure Estimated Blood Loss Check Surgery Details section. Procedure Findings Check Surgery Details section. Procedure Specimens Taken Check Surgery Details section.
--- OUTSIDE RECORDS SUMMARY | 2023-11-29 09:57 | XMS_ITS | Clinical Summary ---
Author Organization [facility] Address [address] [place] [address] Phone Care Team Providers Care Driver Name Role Phone Eusebia Whitaker MD Primary Care Provider [phone] Allergies Active Allergy Reactions Criticality Noted Date [...] 3 (moderate) 02/07 Proteinuria 02/07/2019 Anemia 02/07/2019 prison current use of non-steroidal anti-infl ammatories 02/07/2019 [...] 06/07/2008 Influenza Vaccine (#1) 2023 Care Teams Driver Relationship Specialty Start Date End Date Eusebia Whitaker MD [address] [place] [address] PCP - General Family Medicine 11/24/19
--- OUTSIDE RECORDS SUMMARY | 2023-11-29 09:57 | XMS_ITS | Encounter Summary ---
Author Organization [facility] Address [address] [place] [address] Care Team Providers Care Glassblower Name Role Phone Unavailable Primary Care Provider Unavailabl e Encounter Details Date Type Department Care Team (Late st Contact Info) Description 08/20/2023 Orders Only Division of Nephrology and Hypertension, [facility], in [place], [place] [address] [place] [phone] Jenna Neri, GLADYS, C.N.P., M.S.N. [address] [place] [phone] Social History Tobacco Use Types Packs/Day Years [...]
--- OUTSIDE RECORDS SUMMARY | 2023-11-29 09:57 | XMS_ITS | Clinical Summary ---
Author Organization [facility] Address [address] [place] [address] Care Team Providers Care Boiler Fireman Name Role Phone Eusebia Whitaker Primary Care Provider [phone] Allergies No known active allergies Medications Medication [...] of Treatment Not on file Care Teams Boiler Fireman Relationship Specialty Start Date End Date Eusebia Whitaker [facility] [address] [place] [address] PCP - General Family Practice 09/25/19
--- OUTSIDE RECORDS SUMMARY | 2023-11-29 09:57 | XMS_ITS | Encounter Summary ---
Author Organization [facility] Address [address] [place] [address] Care Team Providers Care Marine Reporter Name Role Phone Unavailable Primary Care Provider Unavailabl e Encounter Details Date Type Department Care Team (Late st Contact Info) Description 08/21/2023 Orders Only Division of Nephrology and Hypertension, [facility], in [place], [place] [address] [place] [phone] Jenna Neri, GLADYS, C.N.P., M.S.N. [address] [place] [phone] Social History Tobacco Use Types Packs/Day Years [...]
--- OUTSIDE RECORDS SUMMARY | 2023-11-29 09:57 | XMS_ITS | Referral Summary ---
Author Organization [facility] Address [address] [place] [address] Care Team Providers Care Rn Travel Name Role Phone Eusebia Whitaker Primary Care Provider [phone] Allergies No known active allergies Medications Medication [...] Treatment Not on file Care Teams Rn Travel Relationship Specialty Start Date End Date Eusebia Whitaker [facility] [address] [place] [address] PCP - General Family Practice 09/25/19
--- OUTSIDE RECORDS SUMMARY | 2023-11-29 09:57 | XMS_ITS | Clinical Summary ---
Author Organization [facility] Address [address] [place] [address] Care Team Providers Care Investment Counselor Name Role Phone Unavailable Primary Care Provider Unavailabl e Source Comments Patient records contain information from all sites at [facility]. For routine questions regarding patient records, call [phone] during business hours, M-F 8:00 AM - 5:00 PM Central Time. Record requests for emergency care only can be directed to [phone] at any time.[facility] Allergies Active Allergy Reactions Criticality Noted [...] mouth at bedtime. 90 tablet 3 10/29/2023 5 Active Active Problems Problem Noted Date [...] (05/19/2022): Added automatically from request for surgery [id number] Hyperparathyroidism Renal Secondary 01/17/2021 Urinary Tract Infection [...] Orders Only Division of Nephrology and Hypertension, [facility], in [place], [place] [address] [place] [address] Jenna Neri, GLADYS, C.N.P., M.S.N. 10/29/2023 Documentation Division of Nephrology and Hypertension in [place], [place] [address] [place] [phone] Radnal Weeks Jr., D.O. 10/29/2023 Orders Only Division of Nephrology and Hypertension in [place], [place] [address] [place] [phone] Randal Weeks Jr., D.O. from Last 3 Months Social [...] (145 lb 11.6 oz) 023 12:20 PM OUTDOOR ADVERTISING LEASING AGENT Height 165.1 cm (5' 5) 2022 12:3 0 PM OUTDOOR ADVERTISING LEASING AGENT Body Mass Index 24.25 2022 12:30 PM OUTDOOR ADVERTISING LEASING AGENT Plan of Treatment Health Maintenance Due Date Last Done Comments Office Visit for Blood Press ure Check / Re-check 1945 Hepatitis B Vaccines (1 of 3 - Risk Dialysis 4-dose series) 1963 Zoster Vaccines (2 of 3) 11/17/2015 09/22/2015 Depression Screening (Annual PHQ-2) 04/09/2023 [...] 16, 01/20/2010 Medical Devices Implanted Type Area Cardiac/Vascular Sonographer Device Identifier Shelf Expiration Date Model / Serial / Lot [facility] Lgc Lgt Ti Sm - [id number] Implanted:Qty : 1 on 06/06/2022 by Garfield Pavon M.D. at [facility] Hardware e.g. pins/screws/ rods Left: Arm Ethicon LT100 / / Clp Hrzn Ti 6 Clp Md Anthony - [id number] Implanted:Qty : 1 on 06/06/2022 by Garfield Pavon M.D. at [facility] Hardware e.g. pins/screws/ rods Left: Arm [employer] [id number] / / Clp Lgc Lgt Ti Sm - [id number] Implanted:Qty : 1 on 06/11/2022 by Garfield Pavon M.D. at [facility] Hardware e.g. pins/screws/ rods Ethicon [id number] 02/06/2027 LT100 / / [id number] Clp Hrzn Ti 6 Clp Md Anthony - [id number] Implanted:Qty : 1 on 06/11/2022 by Garfield Pavon M.D. at [facility] Hardware e.g. pins/screws/ rods [employer] [id number] 11/28/2026 [id number] / / [id number] Clp Hrzn Ti 6 Clp Md Anthony - [id number] Implanted:Qty : 1 on 06/12/2022 by Garfield Pavon M.D. at [facility] Hardware e.g. pins/screws/ rods [employer] [id number] 11/28/2026 [id number] / / [id number] Clp Lgc Lgt Ti Sm - [id number] Implanted:Qty : 1 on 06/12/2022 by Garfield Pavon M.D. at [facility] Hardware e.g. pins/screws/ rods Ethicon [id number] 02/06/2027 LT100 / / [id number] Grft Vsc 0.88 - [id number] Implanted:Qty : 1 on 06/12/2022 by Garfield Pavon M.D. at [facility] Mesh or Patch Synovis 03/15/2023 [id number] / / [id number] Explanted Type Area Cardiac/Vascular Sonographer Device Identifier Shelf Expiration Date Model / Serial / Lot Roseann [facility] 4-7x45 - [id number] - [id number] Implanted:Qty : 1 on 06/06/2022 by Garfield Pavon M.D. at [facility] Explanted:Qty : 1 on 06/12/2022 by Alejandro Keller M.B.BGatitoSGatito at [facility] Vascular Graft Left: Arterial [place] 11/01/2025 [id number] / [id number] / Description:Left upper extre mity graft Procedures Procedure Name Priority Date/Time Associated Diagnosis Comments BASIC METABOLIC PANEL, S/P Routine 06/19/2022 4:56 AM CDT from Last 3 Months or Most Recently Relevant to Health Maintenance Results * (ABNORMAL) Basic Metabolic Panel (06/19/2022 4:56 AM CDT) [facility] Potassium, S 4.1 3.6 - 5.2 mmol/L [...] CDT Chance Santos M.D. LAB BLOOD ADD-ON [facility] [place] [address] [place] [address], [place] DTL [facility] [address] [place] [address] from Last 3 Months or Most Recently Relevant to Health Maintenance Advance Directives For more information, please contact: [phone] * Full Code (Latest Code Status on [...]
--- OUTSIDE RECORDS SUMMARY | 2023-11-29 09:57 | XMS_ITS | Encounter Summary ---
Author Organization [facility] Address [address] [place] [address] Care Team Providers Care Movie Theater Usher Name Role Phone Unavailable Primary Care Provider Unavailabl e Encounter Details Date Type Department Care Team (Late st Contact Info) Description 10/29/2023 Documentation Division of Nephrology and Hypertension in [place], [place] [address] [place] [address] Randal Weeks Jr., Sharon.O. [address] [place] [address] Social History Tobacco Use Types Packs/Day Years [...] documented as of this encounter Progress Notes * Randal Weeks Jr., D.O. - 10/29/2023 10:55 AM CDT Care coordination-dialysis note Please see the [facility] clinical notes which are available in sure scripts and Care everywhere, additionally, written notes to the [address] [place] [address]. She is struggling with severe lower extremity pain, and has not slept. She describes a jumping and picking sensation in her legs. She has been crying out on dialysis once again. I appreciate that she is on mirtazapine 15 mg at bedtime, this is to assist mainly with her sleep and appetite. I will increase this agent to 30 mg at bedtime, primarily to help with sleep to see whether this can benefit from the restless legs perspective. I do believe she is going to need a more targeted approach, we will need to coordinate with the shelter team to maximize the dose of gabapentin as 1st step, and then, we could consider switchingto Mirapex as a next step if gabapentin has been maximized up to 300 mg per day. She is on narcotic based analgesics as well. Additionally, we have been increasing her target weight in response to hypotension during treatment. She continues to require intra dialytic parenteral protein supplementation, and nocturnal tube feeds in order to support her nutrition. documented in this encounter Plan of Treatment Not on file documented as of this encounter Visit Diagnoses Not on filedocumented in this encounter
--- OUTSIDE RECORDS SUMMARY | 2023-11-29 09:57 | XMS_ITS ---
Author Organization [facility] Address [address] [place] [address] Care Team Providers Care Oil And Gas Drafter Name Role Phone Unavailable Primary Care Provider [...] (05/19/2022): Added automatically from request for surgery [id number] Hyperparathyroidism Renal Secondary 01/17/2021 Urinary Tract Infection [...] (145 lb 11.6 oz) 023 12:20 PM WELL SERVICE FLOOR WORKER Height 165.1 cm (5' 5) 2022 12:3 0 PM WELL SERVICE FLOOR WORKER Body Mass Index 24.25 2022 12:30 PM WELL SERVICE FLOOR WORKER Results * (ABNORMAL) Basic Metabolic Panel (06/19/2022 [...] CDT Chance Santos M.D. LAB BLOOD ADD-ON [facility] [address] [place] [address], [facility] DTL [facility] [address] [place] [address] from Last 3 Months or Most Recently Relevant to Health Maintenance
--- OUTSIDE RECORDS SUMMARY | 2023-11-29 09:57 | XMS_ITS | Encounter Summary ---
Author Organization [facility] Address [address] [place] [address] Care Team Providers Care Physicist Solid State Name Role Phone Unavailable Primary Care Provider Unavailabl e Encounter Details Date Type Department Care Team (Late st Contact Info) Description 10/29/2023 Orders Only Division of Nephrology and Hypertension in [place], [place] [address] [place] [address] Randal Weeks Jr., D.O. [address] [place] [address] Social History Tobacco Use Types Packs/Day Years [...]
--- OUTSIDE RECORDS SUMMARY | 2023-11-29 09:57 | XMS_ITS | Clinical Summary ---
Author Organization [facility] Address [place], [place] [address] Care Team Providers Care Crew Car Driver Name Role Phone Erickson Vinson MD Primary [...] Patient taking differently:1 mg OralDAILY AFTERNOON, Informant: Long-Term CHINO, Reported on 06/25/2023 pantoprazole (PROTONIX) 40 [...] Overview: Added automatically from request for surgery [id number] Subacute bacterial endocarditis 11/30/2021 PAF (paroxysmal atrial [...] DM2 (diabetes mellitus, type 2) 12/05/2019 12/05/2019 Family History Medical History Relation Name Comments [...] Procedure Name Priority Date/Time Associated Diagnosis Comments SCAN-BONE DENSITOMETRY DEXA 12/02/2018 12:00 AM CDT from Last 3 Months or Most Recently Relevant to Health Maintenance Results * SCAN-BONE DENSITOMETRY DEXA (12/02/2018 12:00 AM CDT) Anatomical Region Laterality Modality Other Scanner OTHER from Last 3 Months or Most Recently Relevant to Health Maintenance Advance Directives Documents on File Type Date Recorded Patient Rfid Analyst Expl anation POLST 12/01/2021 * Full Code [...] Comments Code Status Discussion: Discussed Care Teams Crew Car Driver Relationship Specialty Start Date End Date Erickson Vinson MD [address] [place] [address] PCP - General Family Practice 02/01/23
== END 2023-11-29 09:56 | disposition home or self-care (01) ==
PROVIDERS: PCP Family Medicine; Visit Provider Nurse Practitioner Family
DX: I73.9 Peripheral vascular disease, unspecified (principal); L97.222 Non-pressure chronic ulcer of left calf with fat layer exposed; Z99.3 Dependence on wheelchair
CPT/HCPCS: G0463

== ENCOUNTER 2023-12-20 08:58 | Outpatient (CLI) | payer OTHER, SELFPAY ==
--- OUTSIDE RECORDS SUMMARY | 2023-12-20 09:00 | XMS_ITS | Clinical Summary ---
Author Organization [facility] Address [address] [place] [address] Care Team Providers Care Journalist Name Role Phone Eusebia Whitaker Primary Care Provider [phone] Allergies No known active allergies Medications Medication [...] of Treatment Not on file Care Teams Journalist Relationship Specialty Start Date End Date Eusebia Whitaker [facility] [address] [place] [address] PCP - General Family Practice 09/25/19
--- OUTSIDE RECORDS SUMMARY | 2023-12-20 09:00 | XMS_ITS | Referral Summary ---
Author Organization [facility] Address [address] [place] [address] Care Team Providers Care Formula Weigher Name Role Phone Eusebia Whitaker Primary Care Provider [phone] Allergies No known active allergies Medications Medication [...] of Treatment Not on file Care Teams Formula Weigher Relationship Specialty Start Date End Date Eusebia Whitaker [facility] [address] [place] [address] PCP - General Family Practice 09/25/19
--- OUTSIDE RECORDS SUMMARY | 2023-12-20 09:00 | XMS_ITS | Encounter Summary ---
Author Organization [facility] Address [address] [place] [address] Care Team Providers Care Channel Partners Name Role Phone Unavailable Primary Care Provider Unavailabl e Encounter Details Date Type Department Care Team (Late st Contact Info) Description 10/29/2023 Documentation Division of Nephrology and Hypertension in [place], [place] [address] [place] [address] Randal Weeks Jr., Sharon.O. [address] [place] [address] Social History Tobacco Use Types Packs/Day Years [...] CDT Care coordination-dialysis note Please see the [facility] clinical notes which are available in sure scripts and Care everywhere, additionally, written notes to the [address] [place] [address]. She is struggling with severe lower extremity [...] we will need to coordinate with the care home team to maximize the dose of gabapentin [...]
--- OUTSIDE RECORDS SUMMARY | 2023-12-20 09:00 | XMS_ITS | Encounter Summary ---
Author Organization [facility] Address [address] [place] [address] Care Team Providers Care Suspender Maker Name Role Phone Unavailable Primary Care Provider Unavailabl e Encounter Details Date Type Department Care Team (Late st Contact Info) Description 11/07/2023 Orders Only Division of Nephrology and Hypertension, [facility], in [place], [place] [address] [place] [phone] Jenna Neri, GLADYS, C.N.P., M.S.N. [address] [place] [phone] Social History Tobacco Use Types Packs/Day Years [...]
--- OUTSIDE RECORDS SUMMARY | 2023-12-20 09:00 | XMS_ITS | Encounter Summary ---
Author Organization [facility] Address [address] [place] [address] Care Team Providers Care Window Glazier Helper Name Role Phone Unavailable Primary Care Provider Unavailabl e Encounter Details Date Type Department Care Team (Late st Contact Info) Description 10/29/2023 Orders Only Division of Nephrology and Hypertension in [place], [place] [address] [place] [address] Randal Weeks Jr., D.O. [address] [place] [address] Social History Tobacco Use Types Packs/Day Years [...]
--- OUTSIDE RECORDS SUMMARY | 2023-12-20 09:00 | XMS_ITS | Referral Summary ---
Author Organization [facility] Address [address] [place] [address] Care Team Providers Care Charcoal Unloader Name Role Phone Unavailable Primary Care Provider Unavailabl e Source Comments Patient records contain information from all sites at [facility]. For routine questions regarding patient records, call [phone] during business hours, M-F 8:00 AM - 5:00 PM Central Time. Record requests for emergency care only can be directed to [phone] at any time.[facility] Encounters Date Type Department Care Team Description 11/07/2023 Orders Only Division of Nephrology and Hypertension, [facility], in [place], [place] [address] [place] [address] Jenna Neri, GLADYS, C.N.P., M.S.N. 10/29/2023 Documentation Division of Nephrology and Hypertension in [place], [place] [address] [place] [address] Randal Weeks Jr., D.O. 10/29/2023 Orders Only Division of Nephrology and Hypertension in [place], [place] [address] [place] [address] Randal Weeks Jr., D.O. from Last 3 [...] (05/19/2022): Added automatically from request for surgery [id number] Hyperparathyroidism Renal Secondary 01/17/2021 Urinary Tract Infection [...] (145 lb 11.6 oz) 023 12:20 PM DIRECTOR PATIENT Height 165.1 cm (5' 5) 2022 12:3 0 PM DIRECTOR PATIENT Body Mass Index 24.25 2022 12:30 PM DIRECTOR PATIENT Plan of Treatment Not on file Medical Devices Implanted Type Area Locomotive Boilermaker Device Identifier Shelf Expiration Date Model / Serial / Lot Clp Lgc Lgt Ti Sm - [id number] Implanted:Qty : 1 on 06/06/2022 by Garfield Pavon M.D. at [facility] Hardware e.g. pins/screws/ rods Left: Arm Ethicon LT100 / / Clp Hrzn Ti 6 Clp Anthony - [id number] Implanted:Qty : 1 on 06/06/2022 by Garfield Pavon M.D. at [facility] Hardware e.g. pins/screws/ rods Left: Arm [employer] [id number] / / Clp Lgc Lgt Ti Sm - [id number] Implanted:Qty : 1 on 06/11/2022 by Garfield Pavon M.D. at [facility] Hardware e.g. pins/screws/ rods Ethicon [id number] 02/06/2027 LT100 / / [id number] Clp Hrzn Ti 6 Clp Anthony - [id number] Implanted:Qty : 1 on 06/11/2022 by Garfield Pavon M.D. at [facility] Hardware e.g. pins/screws/ rods [employer] [id number] 11/28/2026 [id number] / / [id number] Clp Hrzn Ti 6 Clp Anthony - [id number] Implanted:Qty : 1 on 06/12/2022 by Garfield Pavon M.D. at [facility] Hardware e.g. pins/screws/ rods [employer] [id number] 11/28/2026 [id number] / / [id number] Clp Lgc Lgt Ti Sm - [id number] Implanted:Qty : 1 on 06/12/2022 by Garfield Pavon M.D. at [facility] Hardware e.g. pins/screws/ rods Ethicon [id number] 02/06/2027 LT100 / / [id number] Gr Vsc 0.88 - [id number] Implanted:Qty : 1 on 06/12/2022 by Garfield Pavon M.D. at [facility] Mesh or Patch Synovis 03/15/2023 [id number] / / [id number] Explanted Type Area Locomotive Boilermaker Device Identifier Shelf Expiration Date Model / Serial / Lot [facility] Prp 4-7x45 - [id number] - [id number] Implanted:Qty : 1 on 06/06/2022 by Garfield Pavon M.D. at [facility] Explanted:Qty : 1 on 06/12/2022 by Alejandro Keller M.B.B.S. at [facility] Vascular Graft Left: Arterial [place] 11/01/2025 [id number] / [id number] / Description:Left upper extre mity graft [...] CDT Chance Santos M.D. LAB BLOOD ADD-ON [facility] [address] [place] [address], [facility] [address] [place] [address] from Last 3 Months or Most Recently Relevant to Health Maintenance Advance Directives For more information, please contact: [phone] * Full Code (Latest Code Status on [...]
--- OUTSIDE RECORDS SUMMARY | 2023-12-20 09:00 | XMS_ITS | Clinical Summary ---
Author Organization [facility] Address [place], [place] [address] Care Team Providers Care Outsole Paraffiner Name Role Phone Erickson Vinson MD Primary Care Provider Lizeth hamm Allergies Active Allergy Reactions Criticality Noted Date [...] 06/06/2022 Stage 4 chronic kidney disease 05/19/2022 Overview (06/26/2023): Added automatically from request for surgery [id number] Subacute bacterial endocarditis 11/30/2021 PAF (paroxysmal atrial [...] (HFpEF) 12/05/2019 History of colon polyps 11/29/2017 Overview (11/30/2017): Colonoscopy 11/2017 polyps, repeat in 5 years [...] for age 50+ (1 of 2) 06/07/1993 RSV vaccine for adults or (1 - 1-dose 60+ series) 2003 Medicare Wellness for age 65+ 06/07/2008 COVID-19 [...] Documents on File Type Date Recorded Patient Guest Services Director Dayron anatmagno POL 12/01/2021 * Full Code (Latest Code Status [...] Comments Code Status Discussion: Discussed Care Teams Outsole Paraffiner Relationship Specialty Start Date End Date Erickson Vinson MD [address] [place] [address] PCP - General Family Practice 02/01/23
--- OUTSIDE RECORDS SUMMARY | 2023-12-20 09:00 | XMS_ITS | Clinical Summary ---
Author Organization [facility] Address [address] [place] [address] Phone Care Team Providers Care Fisher Lobster Name Role Phone Eusebia Whitaker MD Primary Care Provider [phone] Allergies Active Allergy Reactions Criticality Noted Date [...] 3 (moderate) 02/07 Proteinuria 02/07/2019 Anemia 02/07/2019 custodial current use of non-steroidal anti-infl ammatories 02/07/2019 [...] 06/07/2008 Influenza Vaccine (#1) 2023 Care Teams Fisher Lobster Relationship Specialty Start Date End Date Eusebia Whitaker MD [address] [place] [address] PCP - General Family Medicine 11/24/19
--- OUTSIDE RECORDS SUMMARY | 2023-12-20 09:00 | XMS_ITS ---
Author Organization [facility] Address [address] [place] [address] Care Team Providers Care Senior Systems Software Engineer Name Role Phone Unavailable Unavailable Unavailable Surgery Details Not on file Complications Check Surgery Details section. Procedure Estimated Blood Loss Check Surgery Details section. Procedure Findings Check Surgery Details section. Procedure Specimens Taken Check Surgery Details section.
--- OUTSIDE RECORDS SUMMARY | 2023-12-20 09:00 | XMS_ITS | Clinical Summary ---
Author Organization [facility] Address [address] [place] [address] Care Team Providers Care Top Dyeing Machine Loader Name Role Phone Unavailable Primary Care Provider Unavailabl e Source Comments Patient records contain information from all sites at [facility]. For routine questions regarding patient records, call [phone] during business hours, M-F 8:00 AM - 5:00 PM Central Time. Record requests for emergency care only can be directed to [phone] at any time.[facility] Allergies Active Allergy Reactions Criticality Noted Date [...] (05/19/2022): Added automatically from request for surgery [id number] Hyperparathyroidism Renal Secondary 01/17/2021 Urinary Tract Infection [...] Orders Only Division of Nephrology and Hypertension, [facility], in [place], [place] [address] [place] [address] Jenna eNri, GLADYS, C.N.P., M.S.N. 10/29/2023 Documentation Division of Nephrology and Hypertension in [place], [place] [address] [place] [phone] Randal Weeks Jr., D.O. 10/29/2023 Orders Only Division of Nephrology and Hypertension in [place], [place] [address] [place] [phone] Randal Weeks Jr., D.O. from Last 3 [...] (145 lb 11.6 oz) 023 12:20 PM AUDIO VISUAL PRODUCTION SPECIALIST Height 165.1 cm (5' 5) 2022 12:3 0 PM AUDIO VISUAL PRODUCTION SPECIALIST Body Mass Index 24.25 2022 12:30 PM AUDIO VISUAL PRODUCTION SPECIALIST Plan of Treatment Health Maintenance Due [...] 16, 01/20/2010 Medical Devices Implanted Type Area Crime Lab Technician Device Identifier Shelf Expiration Date Model / Serial / Lot [facility] Lgc Lgt Ti Sm - [id number] Implanted:Qty : 1 on 06/06/2022 by Garfield Pavon M.D. at [facility] Hardware e.g. pins/screws/ rods Left: Arm Ethicon LT100 / / Clp Hrzn Ti 6 Clp Md Anthony - [id number] Implanted:Qty : 1 on 06/06/2022 by Garfield Pavon M.D. at [facility] Hardware e.g. pins/screws/ rods Left: Arm [employer] [id number] / / Clp Lgc Lgt Ti Sm - [id number] Implanted:Qty : 1 on 06/11/2022 by Garfield Pavon M.D. at [facility] Hardware e.g. pins/screws/ rods Ethicon [id number] 02/06/2027 LT100 / / [id number] Clp Hrzn Ti 6 Clp Md Anthony - [id number] Implanted:Qty : 1 on 06/11/2022 by Garfield Pavon M.D. at [facility] Hardware e.g. pins/screws/ rods [employer] [id number] 11/28/2026 [id number] / / [id number] Clp Hrzn Ti 6 Clp Md Anthony - [id number] Implanted:Qty : 1 on 06/12/2022 by Garfield Pavon M.D. at [facility] Hardware e.g. pins/screws/ rods [employer] [id number] 11/28/2026 [id number] / / [id number] Clp Lgc Lgt Ti Sm - [id number] Implanted:Qty : 1 on 06/12/2022 by Garfield Pavon M.D. at [facility] Hardware e.g. pins/screws/ rods Ethicon [id number] 02/06/2027 LT100 / / [id number] Grft Vsc 0.88 - [id number] Implanted:Qty : 1 on 06/12/2022 by Garfield Pavon M.D. at [facility] Mesh or Patch Synovis 03/15/2023 [id number] / / [id number] Explanted Type Area Crime Lab Technician Device Identifier Shelf Expiration Date Model / Serial / Lot Roseann [facility] 4-7x45 - [id number] - [id number] Implanted:Qty : 1 on 06/06/2022 by Garfield Pavon M.D. at [facility] Explanted:Qty : 1 on 06/12/2022 by Alejandro Keller M.B.BGatitoSGatito at [facility] Vascular Graft Left: Arterial [place] 11/01/2025 [id number] / [id number] / Description:Left upper extre mity graft Procedures Procedure Name Priority Date/Time Associated Diagnosis Comments BASIC METABOLIC PANEL, S/P Routine 06/19/2022 4:56 AM CDT from Last 3 Months or Most Recently Relevant to Health Maintenance Results * (ABNORMAL) Basic Metabolic Panel (06/19/2022 4:56 AM CDT) [facility] Potassium, S 4.1 3.6 - 5.2 mmol/L [...] CDT Chance Santos M.D. LAB BLOOD ADD-ON [facility] [address] [place] [address], [place] DTL Formerly named [facility] [address] [place] [address] from Last 3 Months or Most Recently Relevant to Health Maintenance Advance Directives For more information, please contact: [phone] * Full Code (Latest Code Status on [...]
--- OUTSIDE RECORDS SUMMARY | 2023-12-20 09:00 | XMS_ITS ---
Author Organization [facility] Address [address] [place] [address] Care Team Providers Care Envelope Maker Name Role Phone Unavailable Primary Care [...] (05/19/2022): Added automatically from request for surgery [id number] Hyperparathyroidism Renal Secondary 01/17/2021 Urinary Tract Infection [...] (145 lb 11.6 oz) 023 12:20 PM ORCHARD SPRAYER Height 165.1 cm (5' 5) 2022 12:3 0 PM ORCHARD SPRAYER Body Mass Index 24.25 2022 12:30 PM ORCHARD SPRAYER Results * (ABNORMAL) Basic Metabolic Panel (06/19/2022 [...] CDT Chance Santos M.D. LAB BLOOD ADD-ON [facility] [address] [place] [address], [facility] DTL [facility] [address] [place] [address] from Last 3 Months or Most Recently Relevant to Health Maintenance
== END 2023-12-20 08:59 | disposition home or self-care (01) ==
LOC: WOUND 08:58
PROVIDERS: PCP Family Medicine; Visit Provider Nurse Practitioner Family
DX: I73.9 Peripheral vascular disease, unspecified (principal); L97.228 Non-pressure chronic ulcer of left calf with other specified severity; Z99.3 Dependence on wheelchair
CPT/HCPCS: G0463

== ENCOUNTER 2023-12-27 13:06 | Outpatient (CLI) | payer OTHER, SELFPAY ==
--- OUTSIDE RECORDS SUMMARY | 2023-12-27 13:09 | XMS_ITS | Clinical Summary ---
Author Organization [facility] Address [address] [place] [address] Care Team Providers Care Car Knocker Name Role Phone Unavailable Primary Care Provider Unavailabl e Source Comments Patient records contain information from all sites at [facility]. For routine questions regarding patient records, call [phone] during business hours, M-F 8:00 AM - 5:00 PM Central Time. Record requests for emergency care only can be directed to [phone] at any time.[facility] Allergies Active Allergy Reactions Criticality Noted Date [...] (05/19/2022): Added automatically from request for surgery [id number] Hyperparathyroidism Renal Secondary 01/17/2021 Urinary Tract Infection [...] Orders Only Division of Nephrology and Hypertension, [facility], in [place], [place] [address] [place] [address] Jenna Neri, GLADYS, C.N.P., M.S.N. 10/29/2023 Documentation Division of Nephrology and Hypertension in [place], [place] [address] [place] [phone] Randal Weeks Jr., D.O. 10/29/2023 Orders Only Division of Nephrology and Hypertension in [place], [place] [address] [place] [phone] Randal Weeks Jr., D.O. from Last 3 [...] (145 lb 11.6 oz) 023 12:20 PM AUCTION BLOCK CLERK Height 165.1 cm (5' 5) 2022 12:3 0 PM AUCTION BLOCK CLERK Body Mass Index 24.25 2022 12:30 PM AUCTION BLOCK CLERK Plan of Treatment Health Maintenance Due Date [...] 16, 01/20/2010 Medical Devices Implanted Type Area Municipal Court Magistrate Device Identifier Shelf Expiration Date Model / Serial / Lot [facility] Lgc Lgt Ti Sm - [id number] Implanted:Qty : 1 on 06/06/2022 by Garfield Pavon M.D. at [facility] Hardware e.g. pins/screws/ rods Left: Arm Ethicon LT100 / / Clp Hrzn Ti 6 Clp Md Anthony - [id number] Implanted:Qty : 1 on 06/06/2022 by Garfield Pavon M.D. at [facility] Hardware e.g. pins/screws/ rods Left: Arm [employer] [id number] / / Clp Lgc Lgt Ti Sm - [id number] Implanted:Qty : 1 on 06/11/2022 by Garfield Pavon M.D. at [facility] Hardware e.g. pins/screws/ rods Ethicon [id number] 02/06/2027 LT100 / / [id number] Clp Hrzn Ti 6 Clp Md Anthony - [id number] Implanted:Qty : 1 on 06/11/2022 by Garfield Pavon M.D. at [facility] Hardware e.g. pins/screws/ rods [employer] [id number] 11/28/2026 [id number] / / [id number] Clp Hrzn Ti 6 Clp Md Anthony - [id number] Implanted:Qty : 1 on 06/12/2022 by Garfield Pavon M.D. at [facility] Hardware e.g. pins/screws/ rods [employer] [id number] 11/28/2026 [id number] / / [id number] Clp Lgc Lgt Ti Sm - [id number] Implanted:Qty : 1 on 06/12/2022 by Garfield Pavon M.D. at [facility] Hardware e.g. pins/screws/ rods Ethicon [id number] 02/06/2027 LT100 / / 160C87 Grft Vsc 0.88 - [id number] Implanted:Qty : 1 on 06/12/2022 by Garfield Pavon M.D. at [facility] Mesh or Patch Synovis 03/15/2023 [id number] / / [id number] Explanted Type Area Municipal Court Magistrate Device Identifier Shelf Expiration Date Model / Serial / Lot Roseann [facility] 4-7x45 - [id number] - [id number] Implanted:Qty : 1 on 06/06/2022 by Garfield Pavon M.D. at [facility] Explanted:Qty : 1 on 06/12/2022 by Alejandro Keller M.B.BGatitoSGatito at [facility] Vascular Graft Left: Arterial [place] 11/01/2025 [id number] / [id number] / Description:Left upper extre mity graft Procedures Procedure Name Priority Date/Time Associated Diagnosis Comments BASIC METABOLIC PANEL, S/P Routine 06/19/2022 4:56 AM CDT from Last 3 Months or Most Recently Relevant to Health Maintenance Results * (ABNORMAL) Basic Metabolic Panel (06/19/2022 4:56 AM CDT) [facility] Potassium, S 4.1 3.6 - 5.2 [...] CDT Chance Santos M.D. LAB BLOOD ADD-ON [facility] [address] [place] [address], [place] DTL [facility] [address] [place] [address] from Last 3 Months or Most Recently Relevant to Health Maintenance Advance Directives For more information, please contact: [phone] * Full Code (Latest Code Status on [...]
--- OUTSIDE RECORDS SUMMARY | 2023-12-27 13:09 | XMS_ITS ---
Author Organization [facility] Address [address] [place] [address] Care Team Providers Care Repair Department Supervisor Name Role Phone Unavailable Unavailable Unavailable Surgery Details Not on file Complications Check Surgery Details section. Procedure Estimated Blood Loss Check Surgery Details section. Procedure Findings Check Surgery Details section. Procedure Specimens Taken Check Surgery Details section.
--- OUTSIDE RECORDS SUMMARY | 2023-12-27 13:09 | XMS_ITS | Encounter Summary ---
Author Organization [facility] Address [address] [place] [address] Care Team Providers Care Piped Buttonhole Machine Operator Name Role Phone Unavailable Primary Care Provider Unavailabl e Encounter Details Date Type Department Care Team (Late st Contact Info) Description 11/07/2023 Orders Only Division of Nephrology and Hypertension, [facility], in [place], [place] [address] [place] [phone] Jenna Neri, GLADYS, C.N.P., M.S.N. [address] [place] [phone] Social History Tobacco Use Types Packs/Day Years [...]
--- OUTSIDE RECORDS SUMMARY | 2023-12-27 13:09 | XMS_ITS | Referral Summary ---
Author Organization [facility] Address [address] [place] [address] Care Team Providers Care Violent Crimes Detective Name Role Phone Eusebia Whitaker Primary Care Provider [phone] Allergies No known active allergies Medications Medication [...] of Treatment Not on file Care Teams Violent Crimes Detective Relationship Specialty Start Date End Date Eusebia Whitaker [facility] [address] [place] [address] PCP - General Family Practice 09/25/19
--- OUTSIDE RECORDS SUMMARY | 2023-12-27 13:09 | XMS_ITS | Clinical Summary ---
Author Organization [facility] Address [address] [place] [address] Phone Care Team Providers Care Certified Midwife Name Role Phone Eusebia Whitaker MD Primary Care Provider [phone] Allergies Active Allergy Reactions Criticality Noted Date [...] 06/07/2008 Influenza Vaccine (#1) 2023 Care Teams Certified Midwife Relationship Specialty Start Date End Date Eusebia Whitaker MD [address] [place] [address] PCP - General Family Medicine 11/24/19
--- OUTSIDE RECORDS SUMMARY | 2023-12-27 13:09 | XMS_ITS | Clinical Summary ---
Author Organization [facility] Address [place], [place] [address] Care Team Providers Care Maintenance Advisor Name Role Phone Erickson Vinson MD Primary [...] Patient taking differently:1 mg OralDAILY AFTERNOON, Informant: [facility], Reported on 06/25/2023 pantoprazole (PROTONIX) [...] (06/26/2023): Added automatically from request for surgery [id number] Subacute bacterial endocarditis 11/30/2021 PAF (paroxysmal atrial [...] Documents on File Type Date Recorded Patient Welder Operator Dayron anatmagno POL 12/01/2021 * Full Code [...] Comments Code Status Discussion: Discussed Care Teams Maintenance Advisor Relationship Specialty Start Date End Date Erickson Vinson MD [address] [place] [address] PCP - General Family Practice 02/01/23
--- OUTSIDE RECORDS SUMMARY | 2023-12-27 13:09 | XMS_ITS | Encounter Summary ---
Author Organization [facility] Address [address] [place] [address] Care Team Providers Care Assayer Helper Name Role Phone Unavailable Primary Care Provider Unavailabl e Encounter Details Date Type Department Care Team (Late st Contact Info) Description 10/29/2023 Orders Only Division of Nephrology and Hypertension in [place], [place] [address] [place] [address] Randal Weeks Jr., D.O. [address] [place] [address] Social History Tobacco Use Types Packs/Day Years [...]
--- OUTSIDE RECORDS SUMMARY | 2023-12-27 13:09 | XMS_ITS | Referral Summary ---
Author Organization [facility] Address [address] [place] [address] Care Team Providers Care Assistant Professor Of Anthropology Name Role Phone Unavailable Primary Care Provider Unavailabl e Source Comments Patient records contain information from all sites at [facility]. For routine questions regarding patient records, call [phone] during business hours, M-F 8:00 AM - 5:00 PM Central Time. Record requests for emergency care only can be directed to [phone] at any time.[facility] Encounters Date Type Department Care Team Description 11/07/2023 Orders Only Division of Nephrology and Hypertension, [facility], in [place], [place] [address] [place] [address] Jenna Neri, GLADYS, C.N.P., M.S.N. 10/29/2023 Documentation Division of Nephrology and Hypertension in [place], [place] [address] [place] [address] Randal Weeks Jr., D.O. 10/29/2023 Orders Only Division of Nephrology and Hypertension in [place], [place] [address] [place] [address] Randal Weeks Jr., D.O. from Last 3 [...] (05/19/2022): Added automatically from request for surgery [id number] Hyperparathyroidism Renal Secondary 01/17/2021 Urinary Tract Infection [...] (145 lb 11.6 oz) 023 12:20 PM HOSPITAL SECURITY OFFICER Height 165.1 cm (5' 5) 2022 12:3 0 PM HOSPITAL SECURITY OFFICER Body Mass Index 24.25 2022 12:30 PM HOSPITAL SECURITY OFFICER Plan of Treatment Not on file Medical Devices Implanted Type Area Polysomnographer Device Identifier Shelf Expiration Date Model / Serial / Lot Clp Lgc Lgt Ti Sm - [id number] Implanted:Qty : 1 on 06/06/2022 by Garfield Pavon M.D. at [facility] Hardware e.g. pins/screws/ rods Left: Arm Ethicon LT100 / / Clp Hrzn Ti 6 Clp Anthony - [id number] Implanted:Qty : 1 on 06/06/2022 by Garfield Pavon M.D. at [facility] Hardware e.g. pins/screws/ rods Left: Arm [employer] [id number] / / Clp Lgc Lgt Ti Sm - [id number] Implanted:Qty : 1 on 06/11/2022 by Garfield Pavon M.D. at [facility] Hardware e.g. pins/screws/ rods Ethicon [id number] 02/06/2027 LT100 / / [id number] Clp Hrzn Ti 6 Clp Anthony - [id number] Implanted:Qty : 1 on 06/11/2022 by Garfield Pavon M.D. at [facility] Hardware e.g. pins/screws/ rods [employer] [id number] 11/28/2026 [id number] / / [id number] Clp Hrzn Ti 6 Clp Anthony - [id number] Implanted:Qty : 1 on 06/12/2022 by Garfield Pavon M.D. at [facility] Hardware e.g. pins/screws/ rods [employer] [id number] 11/28/2026 [id number] / / [id number] Clp Lgc Lgt Ti Sm - [id number] Implanted:Qty : 1 on 06/12/2022 by Garfield Pavon M.D. at [facility] Hardware e.g. pins/screws/ rods Ethicon [id number] 02/06/2027 LT100 / / 160C87 Gr Vsc 0.88 - [id number] Implanted:Qty : 1 on 06/12/2022 by Garfield Pavon M.D. at [facility] Mesh or Patch Synovis 03/15/2023 [id number] / / [id number] Explanted Type Area Polysomnographer Device Identifier Shelf Expiration Date Model / Serial / Lot [facility] Prp 4-7x45 - [id number] - [id number] Implanted:Qty : 1 on 06/06/2022 by Garfield Pavon M.D. at [facility] Explanted:Qty : 1 on 06/12/2022 by Alejandro Keller M.B.B.S. at [facility] Vascular Graft Left: Arterial [place] 11/01/2025 [id number] / [id number] / Description:Left upper extre mity graft [...] CDT Chance Santos M.D. LAB BLOOD ADD-ON [facility] [address] [place] [address], [facility] [address] [place] [address] from Last 3 Months or Most Recently Relevant to Health Maintenance Advance Directives For more information, please contact: [phone] * Full Code (Latest Code Status on [...]
--- OUTSIDE RECORDS SUMMARY | 2023-12-27 13:09 | XMS_ITS | Clinical Summary ---
Author Organization [facility] Address [address] [place] [address] Care Team Providers Care Traveling Electrician Name Role Phone Eusebia Whitaker Primary Care [...] of Treatment Not on file Care Teams Traveling Electrician Relationship Specialty Start Date End Date Eusebia Whitaker [facility] [address] [place] [address] PCP - General Family Practice 09/25/19
--- OUTSIDE RECORDS SUMMARY | 2023-12-27 13:09 | XMS_ITS | Encounter Summary ---
Author Organization [facility] Address [address] [place] [address] Care Team Providers Care Litigation Services Manager Name Role Phone Unavailable Primary Care Provider Unavailabl e Encounter Details Date Type Department Care Team (Late st Contact Info) Description 10/29/2023 Documentation Division of Nephrology and Hypertension in [place], [place] [address] [place] [address] Randal Weeks Jr., Sharon.O. [address] [place] [address] Social History Tobacco Use Types Packs/Day Years [...] CDT Care coordination-dialysis note Please see the [facility] clinical notes which are available in sure scripts and Care everywhere, additionally, written notes to the [address] [place] [address]. She is struggling with severe lower extremity [...] we will need to coordinate with the skilled nursing team to maximize the dose of gabapentin [...]
--- OUTSIDE RECORDS SUMMARY | 2023-12-27 13:09 | XMS_ITS ---
Author Organization [facility] Address [address] [place] [address] Care Team Providers Care Medical Specialist Name Role Phone Unavailable Primary Care [...] (05/19/2022): Added automatically from request for surgery [id number] Hyperparathyroidism Renal Secondary 01/17/2021 Urinary Tract Infection [...] (145 lb 11.6 oz) 023 12:20 PM STRETCHING MACHINE OPERATOR Height 165.1 cm (5' 5) 2022 12:3 0 PM STRETCHING MACHINE OPERATOR Body Mass Index 24.25 2022 12:30 PM STRETCHING MACHINE OPERATOR Results * (ABNORMAL) Basic Metabolic Panel (06/19/2022 [...] [facility] [address] [place] [address], [facility] DTL [facility] [address] [place] [address] from Last 3 Months or Most Recently Relevant to Health Maintenance
== END 2023-12-27 13:07 | disposition home or self-care (01) ==
LOC: WOUND 13:06
PROVIDERS: PCP Family Medicine; Visit Provider Nurse Practitioner Family
DX: I73.9 Peripheral vascular disease, unspecified (principal); L97.228 Non-pressure chronic ulcer of left calf with other specified severity; Z99.3 Dependence on wheelchair
CPT/HCPCS: G0463

== ENCOUNTER 2024-01-10 08:47 | Outpatient (CLI) | payer OTHER, MEDICARE, SELFPAY ==
--- OUTSIDE RECORDS SUMMARY | 2024-01-10 08:51 | XMS_ITS | Clinical Summary ---
Author Organization [facility] Address [address] [place] [address] Care Team Providers Care Deputy Sheriff Generalist/Bailiff Name Role Phone Unavailable Primary Care Provider Unavailabl e Source Comments Patient records contain information from all sites at [facility]. For routine questions regarding patient records, call [phone] during business hours, M-F 8:00 AM - 5:00 PM Central Time. Record requests for emergency care only can be directed to [phone] at any time.[facility] Allergies Active Allergy Reactions Criticality Noted Date [...] at bedtime. 90 tablet 3 10/29/2023 Active buprenorphine (Butrans) 10 mcg/hourIndications: Chronic Pain/Nonacute Pain Place 1 patch on the skin once a week Indication: Chronic Pain/Nonacute Pain. 01/07/2024 Active HYDROmorphone (Dilaudid) 2 mg tabletIndications:Ch ronic Pain/Nonacute Pain Take 1 tablet (2 mg total) by mouth every 3 (three) hours as needed for pain Indication: Chronic Pain/Nonacute Pain. 01/07/2024 Active Active Problems Problem Noted Date Diagnosed [...] (05/19/2022): Added automatically from request for surgery [id number] Hyperparathyroidism Renal Secondary 01/17/2021 Urinary Tract Infection [...] Encounters Date Type Department Care Team Description 01/07/2024 Clinical Communication Division of Nephrology and Hypertension in [place], [place] [address] [place] [address] Randal Weeks Jr., D.O. Rx Prior Authorization (buprenorphine (Butrans) 10 mcg/hour) 01/07/2024 Documentation Division of Nephrology and Hypertension in [place], [place] [address] [place] [address] Randal Weeks Jr., D.OGatito 01/07/2024 Orders Only Division of Nephrology and Hypertension in [place], [place] [address] [place] [address] Randal Weeks Jr., D.OGatito 11/07/2023 Orders Only Division of Nephrology and Hypertension, [facility], in [place], [place] [address] [place] [address] Jenna Neri APRN, C.N.P., M.S.N. 10/29/2023 Documentation Division of Nephrology and Hypertension in [place], [place] [address] [place] [address] Randal Weeks Jr. D.O. 10/29/2023 Orders Only Division of Nephrology and Hypertension in [place], [place] [address] [place] [address] Randal Weeks Jr. D.O. from Last 3 Months Social History [...] (145 lb 11.6 oz) 023 12:20 PM WATER WELL DRILLER Height 165.1 cm (5' 5) 2022 12:3 0 PM WATER WELL DRILLER Body Mass Index 24.25 2022 12:30 PM WATER WELL DRILLER Plan of Treatment Health Maintenance Due Date Last Done Comments Generalized Anxiety (ZA-7) 1945 Office Visit for Blood Press ure Check / Re-check 1945 Hepatitis B Vaccines (1 of 3 - Risk Dialysis 4-dose series) 1963 Zoster Vaccines (2 of 3) 11/17/2015 09/22/2015 RSV vaccine - (32-3 6 weeks) or 60+ years (1 - 1-dose 75+ series) 06/07/2018 Depression Screening (Annual PHQ-2) 04/09/2023 Fall Risk Screen (Annual) 04/09/2023 COVID-19 Vaccine (6 - 2023-2 5 season) 2023 01/30/2023, 01/16/2022, 01/20/2021, Additional history exists Controlled Substance Agreement 01/07/2024 Controlled Substance Monitor ing (PHQ-9) 01/07/2024 Controlled Substance Monitoring 01/07/2024 Opioid Risk Tool (ORT) 01/07/2024 PEG assessment for Opioid therapy 01/07/2024 Influenza Vaccine (#1) 2024 , 01/12/2021, 01/20/2020, Additional history exists Creatinine Level (Kidney Fun ction Test) 07/06/2024 07/07/2023, 07/06/2023, 07/05/2023, Additional history exists Sodium Level 07/06/2024 07/07/2023, 2 12/2023, 07/05/2023, Additional history exists Potassium Level 07/07/2024 07/08/2023, 3 , 07/06/2023, Additional history exists DTaP,Tdap,and Td Vaccines (2 - Td or Tdap) 11/14/2027 11/13/2017 Pneumococcal vaccine (65+ years) Completed 08/19/19 16, 01/20/2010 Medical Devices Implanted Type Area Pattern And Chain Maker Device Identifier Shelf Expiration Date Model / Serial / Lot Clp [facility] Ti - [id number] Implanted:Qty : 1 on 06/06/2022 by Garfield Pavon M.D. at [facility] Hardware e.g. pins/screws/ rods Left: Arm Ethicon LT100 / / Clp Hrzn Ti [address] [facility] - [id number] Implanted:Qty : 1 on 06/06/2022 by Garfield Pavon M.D. at [facility] Hardware e.g. pins/screws/ rods Left: Arm [employer] [id number] / / Clp Lgc Lgt Ti Sm - [id number] Implanted:Qty : 1 on 06/11/2022 by Garfield Pavon M.D. at [facility] Hardware e.g. pins/screws/ rods Ethicon [id number] 02/06/2027 LT100 / / [id number] Clp Hrzn Ti 6 Clp [facility] - [id number] Implanted:Qty : 1 on 06/11/2022 by Garfield Pavon M.D. at [facility] Hardware e.g. pins/screws/ rods [employer] [id number] 11/28/2026 [id number] / / [id number] Clp Hrzn Ti 6 Clp Md Anthony - [id number] Implanted:Qty : 1 on 06/12/2022 by Garfield Pavon M.D. at [facility] Hardware e.g. pins/screws/ rods [employer] [id number] 11/28/2026 [id number] / / [id number] Clp Lgc Lgt Ti Sm - [id number] Implanted:Qty : 1 on 06/12/2022 by Garfield Pavon M.D. at [facility] Hardware e.g. pins/screws/ rods Ethicon [id number] 02/06/2027 LT100 / / [id number] [facility] 0.88 - [id number] Implanted:Qty : 1 on 06/12/2022 by Garfield Pavon M.D. at [facility] Mesh or Patch Synovis 03/15/2023 [id number] / / [id number] Explanted Type Area Pattern And Chain Maker Device Identifier Shelf Expiration Date Model / Serial / Lot [facility] 4-7x45 - [id number] - [id number] Implanted:Qty : 1 on 06/06/2022 by Garfield Pavon M.D. at [facility] Explanted:Qty : 1 on 06/12/2022 by Alejandro Keller MGatitoB.B.SGatito at [facility] Vascular Graft Left: Arterial [place] 11/01/2025 [id number] / [id number] / Description:Left upper extre mity graft [...] CDT Chance Santos M.D. LAB BLOOD ADD-ON [facility] [address] [place] [address], [facility] DTL [facility] [address] [place] [address] from Last 3 Months or Most Recently Relevant to Health Maintenance Advance Directives For more information, please contact: [phone] * Full Code (Latest Code Status on [...]
--- OUTSIDE RECORDS SUMMARY | 2024-01-10 08:51 | XMS_ITS | Referral Summary ---
Author Organization [facility] Address [address] [place] [address] Care Team Providers Care Aircraft Cleaning Supervisor Name Role Phone Unavailable Primary Care Provider Unavailabl e Source Comments Patient records contain information from all sites at [facility]. For routine questions regarding patient records, call [phone] during business hours, M-F 8:00 AM - 5:00 PM Central Time. Record requests for emergency care only can be directed to [phone] at any time.[facility] Encounters Date Type Department Care Team Description 01/07/2024 Clinical Communication Division of Nephrology and Hypertension in [place], [place] [address] [place] [phone] Randal Weeks Jr., D.O. Rx Prior Authorization (buprenorphine (Butrans) 10 mcg/hour) 01/07/2024 Documentation Division of Nephrology and Hypertension in [place], [place] [address] [place] [phone] Randal Weeks Jr., D.OGatito 01/07/2024 Orders Only Division of Nephrology and Hypertension in [place], [place] [address] [place] [phone] Randal Weeks Jr., D.O. 11/07/2023 Orders Only Division of Nephrology and Hypertension, [facility], in [place], [place] [address] [place] [phone] Jenna Neri, GLADYS, C.N.P., M.S.N. 10/29/2023 Documentation Division of Nephrology and Hypertension in [place], [place] [address] [place] [address] Randal Weeks Jr. DGatitoO. 10/29/2023 Orders Only Division of Nephrology and Hypertension in [place], [place] [address] [place] [address] Randal Weeks Jr., D.O. from Last 3 [...] (05/19/2022): Added automatically from request for surgery [id number] Hyperparathyroidism Renal Secondary 01/17/2021 Urinary Tract Infection [...] (145 lb 11.6 oz) 023 12:20 PM PSYCHOLOGICAL ASSISTANT Height 165.1 cm (5' 5) 2022 12:3 0 PM PSYCHOLOGICAL ASSISTANT Body Mass Index 24.25 2022 12:30 PM PSYCHOLOGICAL ASSISTANT Plan of Treatment Not on file Medical Devices Implanted Type Area Clinical Education Coordinator Device Identifier Shelf Expiration Date Model / Serial / Lot Clp Lgc Lgt Ti Sm - [id number] Implanted:Qty : 1 on 06/06/2022 by Garfield Pavon M.D. at [facility] Hardware e.g. pins/screws/ rods Left: Arm Ethicon LT100 / / Clp Hrzn Ti 6 Clp Md [facility] - [id number] Implanted:Qty : 1 on 06/06/2022 by Garfield Pavon M.D. at [facility] Hardware e.g. pins/screws/ rods Left: Arm [employer] [id number] / / Clp Lgc Lgt Ti Sm - [id number] Implanted:Qty : 1 on 06/11/2022 by Garfield Pavon M.D. at [facility] Hardware e.g. pins/screws/ rods Ethicon [id number] 02/06/2027 LT100 / / [id number] Clp Hrzn Ti 6 Clp Anthony - [id number] Implanted:Qty : 1 on 06/11/2022 by Garfield Pavon M.D. at [facility] Hardware e.g. pins/screws/ rods [employer] [id number] 11/28/2026 [id number] / / [id number] Clp Hrzn Ti 6 Clp Anthony - [id number] Implanted:Qty : 1 on 06/12/2022 by Garfield Pavon M.D. at [facility] Hardware e.g. pins/screws/ rods [employer] [id number] 11/28/2026 [id number] / / [id number] Clp Lgc Lgt Ti Sm - [id number] Implanted:Qty : 1 on 06/12/2022 by Garfield Pavon M.D. at [facility] Hardware e.g. pins/screws/ rods Ethicon [id number] 02/06/2027 LT100 / / [id number] [facility] 0.88 - [id number] Implanted:Qty : 1 on 06/12/2022 by Garfield Pavon M.D. at [facility] Mesh or Patch Synovis 03/15/2023 [id number] / / [id number] Explanted Type Area Clinical Education Coordinator Device Identifier Shelf Expiration Date Model / Serial / Lot daylin [facility] 4-7x45 - [id number] - [id number] Implanted:Qty : 1 on 06/06/2022 by Garfield Pavon M.D. at [facility] Explanted:Qty : 1 on 06/12/2022 by Alejandro Keller M.B.BGatitoSGatito at [facility] Vascular Graft Left: Arterial [place] 11/01/2025 [id number] / [id number] / Description:Left upper extre mity graft [...] CDT Chance Santos M.D. LAB BLOOD ADD-ON [facility] [address] [place] [address], [place] [facility] [address] [place] [address] from Last 3 Months or Most Recently Relevant to Health Maintenance Advance Directives For more information, please contact: [phone] * Full Code (Latest Code Status on [...]
--- OUTSIDE RECORDS SUMMARY | 2024-01-10 08:51 | XMS_ITS | Encounter Summary ---
Author Organization [facility] Address [address] [place] [address] Care Team Providers Care Leather Goods Maker Name Role Phone Unavailable Primary Care Provider Unavailabl e Encounter Details Date Type Department Care Team (Late st Contact Info) Description 11/07/2023 Orders Only Division of Nephrology and Hypertension, [facility], in [place], [place] [address] [place] [phone] Jenna Neri, GLADYS, C.N.P., M.S.N. [address] [place] [phone] Social History Tobacco Use Types Packs/Day Years [...]
--- OUTSIDE RECORDS SUMMARY | 2024-01-10 08:51 | XMS_ITS | Encounter Summary ---
Author Organization [facility] Address [address] [place] [address] Care Team Providers Care Sand Buffer Name Role Phone Unavailable Primary Care Provider Unavailabl e Encounter Details Date Type Department Care Team (Late st Contact Info) Description 10/29/2023 Documentation Division of Nephrology and Hypertension in [place], [place] [address] [place] [address] Randal Weeks Jr., Sharon.O. [address] [place] [address] Social History Tobacco Use Types Packs/Day Years [...] CDT Care coordination-dialysis note Please see the [facility] clinical notes which are available in sure scripts and Care everywhere, additionally, written notes to the [address] [place] [address]. She is struggling with severe lower extremity [...] we will need to coordinate with the long-term team to maximize the dose of gabapentin [...]
--- OUTSIDE RECORDS SUMMARY | 2024-01-10 08:51 | XMS_ITS | Encounter Summary ---
Author Organization [facility] Address [address] [place] [address] Care Team Providers Care Traffic Survey Technician Name Role Phone Unavailable Primary Care Provider Unavailabl e Encounter Details Date Type Department Care Team (Late st Contact Info) Description 01/07/2024 Documentation Division of Nephrology and Hypertension in [place], [place] [address] [place] [address] Randal Weeks Jr., Sharon.O. [address] [place] [address] Social History Tobacco Use Types Packs/Day Years [...] Notes * Randal Weeks Jr., D.O. - 01/07/2024 10:46 AM CDT Dialysis visit-care coordination: Please see the sure scripts, and Care everywhere tab for the dialysis documentation from today. Once again as she arrived to dialysis she was in excruciating pain. Over my last few visits we havebeen attempting to get communication with the alf to determine her analgesics strategy. Today I was able to make connection with their nurse practitioner who helps with management of the patient's at the [address] [place] [address]. Currently she is receiving a exchanged daily. She is also scheduled toreceive 1 mg of hydromorphone prior to each dialysis session, and may also receive this PRN twice daily. It appears she has been receiving the 1 mg of hydromorphone, and we discussed the opportunity to increase this to 2 mg. She does not seem to be receiving this agent very frequently for breakthrough pain at the alf facility. We discussed that likely it is the transport, and movement which prompted the substantial pain. We discussed that it be optimal that she had received this agent approximately half an hour prior to her coming to dialysis, and as a 2nd shift patient this should be achievable. It is my hope that this can help improve the balance between sedation and pain management. Her pain is on the background of ischemic lower limb disease. documented in this encounter Plan of Treatment Not on file documented as of this encounter Visit Diagnoses Not on filedocumented in this encounter
--- OUTSIDE RECORDS SUMMARY | 2024-01-10 08:51 | XMS_ITS | Referral Summary ---
Author Organization [facility] Address [address] [place] [address] Care Team Providers Care Keno Terminal Operator Name Role Phone Eusebia Whitaker Primary Care Provider [phone] Allergies No known active allergies Medications Medication [...] of Treatment Not on file Care Teams Keno Terminal Operator Relationship Specialty Start Date End Date Eusebia Whitaker [facility] [address] [place] [address] PCP - General Family Practice 09/25/19
--- OUTSIDE RECORDS SUMMARY | 2024-01-10 08:51 | XMS_ITS | Clinical Summary ---
Author Organization [employer] [facility] Address [place], [place] [address] Care Team Providers Care Rn Urgent Care Name Role Phone Erickson Vinson MD Primary [...] Patient taking differently:1 mg OralDAILY AFTERNOON, Informant: [facility] [place], Reported on 06/25/2023 pantoprazole (PROTONIX) 40 [...] (06/26/2023): Added automatically from request for surgery [id number] Subacute bacterial endocarditis 11/30/2021 PAF (paroxysmal atrial [...] 06/07/1993 Medicare Wellness for age 65+ 06/07/2008 RSV vaccine for adults or (1 - 1-dose 75+ series) 06/07/2018 COVID-19 vaccine series ( season) 2023 01/30/2023, [...] Documents on File Type Date Recorded Patient Translator Deaf Dayron anatmagno POL 12/01/2021 * Full Code [...] Comments Code Status Discussion: Discussed Care Teams Rn Urgent Care Relationship Specialty Start Date End Date Erickson Vinson MD [address] [place] [address] PCP - General Family Practice 02/01/23
--- OUTSIDE RECORDS SUMMARY | 2024-01-10 08:51 | XMS_ITS | Clinical Summary ---
Author Organization [facility] Address [address] [place] [address] Care Team Providers Care Weather Teacher Name Role Phone Eusebia Whitaker Primary Care Provider [phone] Allergies No known active allergies Medications Medication [...] of Treatment Not on file Care Teams Weather Teacher Relationship Specialty Start Date End Date Eusebia Whitaker [facility] [address] [place] [address] PCP - General Family Practice 09/25/19
--- OUTSIDE RECORDS SUMMARY | 2024-01-10 08:51 | XMS_ITS | Clinical Summary ---
Author Organization [facility] Address [address] [place] [address] Phone Care Team Providers Care Pencil Maker Name Role Phone Eusebia Whitaker MD Primary Care Provider [phone] Allergies Active Allergy Reactions Criticality Noted Date [...] 3 (moderate) 02/07 Proteinuria 02/07/2019 Anemia 02/07/2019 snf current use of non-steroidal anti-infl ammatories 02/07/2019 [...] 06/07/2008 Influenza Vaccine (#1) 2023 Care Teams Pencil Maker Relationship Specialty Start Date End Date Eusebia Whitaker MD [address] [place] [address] PCP - General Family Medicine 11/24/19
--- OUTSIDE RECORDS SUMMARY | 2024-01-10 08:51 | XMS_ITS | Encounter Summary ---
Author Organization [facility] Address [address] [place] [address] Care Team Providers Care Trimmer Machine Name Role Phone Unavailable Primary Care Provider Unavailabl e Encounter Details Date Type Department Care Team (Late st Contact Info) Description 10/29/2023 Orders Only Division of Nephrology and Hypertension in [place], [place] [address] [place] [address] Randal Weeks Jr., D.O. [address] [place] [address] Social History Tobacco Use Types Packs/Day Years [...]
--- OUTSIDE RECORDS SUMMARY | 2024-01-10 08:51 | XMS_ITS ---
Author Organization [facility] Address [address] [place] [address] Care Team Providers Care Fiberglass Tube Molder Name Role Phone Unavailable Unavailable Unavailable Surgery Details Not on file Complications Check Surgery Details section. Procedure Estimated Blood Loss Check Surgery Details section. Procedure Findings Check Surgery Details section. Procedure Specimens Taken Check Surgery Details section.
--- OUTSIDE RECORDS SUMMARY | 2024-01-10 08:51 | XMS_ITS | Encounter Summary ---
Author Organization [facility] Address [address] [place] [address] Care Team Providers Care Loader Name Role Phone Unavailable Primary Care Provider Unavailabl e Reason for Visit * Reason Onset Date Comments Rx Prior Authorization 01/07/2024 buprenorp shailesh (Butrans) 10 mcg/hour Encounter Details Date Type Department Care Team (Latest Contact Info) Description 01/07/2024 Clinical Communication Division of Nephrology and Hypertension in [place], [place] [address] [place] [address] Randal Weeks Jr., D.O. [address] [place] [address] Rx Prior Authorization (buprenorphine (Butrans) 10 mcg/hour) Social History Tobacco Use Types Packs/Day Years [...]
--- OUTSIDE RECORDS SUMMARY | 2024-01-10 08:51 | XMS_ITS ---
Author Organization [facility] Address [address] [place] [address] Care Team Providers Care Medical Operations Supervisor Name Role Phone Unavailable Primary Care [...] (05/19/2022): Added automatically from request for surgery [id number] Hyperparathyroidism Renal Secondary 01/17/2021 Urinary Tract Infection [...] (145 lb 11.6 oz) 023 12:20 PM CHIEF LEGAL OFFICER Height 165.1 cm (5' 5) 2022 12:3 0 PM CHIEF LEGAL OFFICER Body Mass Index 24.25 2022 12:30 PM CHIEF LEGAL OFFICER Results * (ABNORMAL) Basic Metabolic Panel (06/19/2022 [...] CDT Chance Santos M.D. LAB BLOOD ADD-ON [facility] [address] [place] [address], [place] DTL [facility] [address] [place] [address] from Last 3 Months or Most Recently Relevant to Health Maintenance
--- OUTSIDE RECORDS SUMMARY | 2024-01-10 08:51 | XMS_ITS | Encounter Summary ---
Author Organization [facility] Address [address] [place] [address] Care Team Providers Care Electronics Supervisor Name Role Phone Unavailable Primary Care Provider Unavailabl e Reason for Referral * Medication Prior Authorization - Closed Specialty Diagnoses / Procedures Referred By Hakeem jameson Referred To Contact Randal Weeks Jr., D.O. [address] [place] [phone] Referral ID Status Reason Start Date Expiration Date Visits Re quested Visits Authorized [id number] Closed 1 1 Encounter Details Date Type Department Care Team (Late st Contact Info) Description 01/07/2024 Orders Only Division of Nephrology and Hypertension in [place], [place] [address] [place] [phone] Randal Weeks Jr., D.O. [address] [place] [phone] Social History Tobacco Use Types Packs/Day Years [...]
== END 2024-01-10 08:48 | disposition home or self-care (01) ==
LOC: WOUND 08:47
PROVIDERS: PCP Family Medicine; Visit Provider Nurse Practitioner Family
DX: I73.9 Peripheral vascular disease, unspecified (principal); L97.228 Non-pressure chronic ulcer of left calf with other specified severity; Z99.3 Dependence on wheelchair
CPT/HCPCS: G0463

== ENCOUNTER 2024-02-07 08:36 | Outpatient (CLI) | payer OTHER, SELFPAY ==
--- OUTSIDE RECORDS SUMMARY | 2024-02-07 08:38 | XMS_ITS | Encounter Summary ---
Author Organization [facility] Address [address] [place] [address] Care Team Providers Care Mold Yard Crane Operator Name Role Phone Unavailable Primary Care Provider Unavailabl e Encounter Details Date Type Department Care Team (Late st Contact Info) Description 11/07/2023 Orders Only Division of Nephrology and Hypertension, [facility], in [place], [place] [address] [place] [phone] Jenna Neri, GLADYS, C.N.P., M.S.N. [address] [place] [phone] Social History Tobacco Use Types Packs/Day Years Used Date Smoking Tobacco: Unknown Dental Answer Date Recorded Dental: Regular Dentist Unknown 06/03/19 21 Comments No Sex and Gender Information Value Date Recorded Sex Assigned at Not on file Legal Sex Female 12:21 PM CDT Gender Identity Not on file Sexual Orientation Not on file documented as of this encounter Plan of Treatment Not on file documented as of this encounter Visit Diagnoses Not on filedocumented in this encounter
--- OUTSIDE RECORDS SUMMARY | 2024-02-07 08:38 | XMS_ITS ---
Author Organization [facility] Address [address] [place] [address] Care Team Providers Care Dental Sales Representative Name Role Phone Unavailable Primary Care Provider Unavailabl e Procedures Procedure Name Priority Date/Time Associated Diagnosis Comments BASIC METABOLIC PANEL, S/P Routine 06/19/2022 4:56 AM CDT from Last 3 Months or Most Recently Relevant to Health Maintenance Allergies Active Allergy Reactions Criticality Noted Date Comments Simvastatin Other (see comments) 11/29/2017 Medications * This document contains information received from the source organization and may not represent a complete record from that organization. omeprazole (PriLOSEC) [address] capsule Take 20 mg by mouth daily with lunch. Active Dialyvite 100-1 mg tablet Take 1 tablet by mouth daily. 09/30/19 22 Active oxyCODONE (ROXICODONE) 5 mg immediate release tablet Take 5 mg by mouth every 4 (four) hours. Active Eliquis 2.5 mg tablet Take 2.5 mg by mouth 2 (two) times a day. 06/02/19 23 Active nystatin (NYSTOP) 100,000 unit/gram powder Apply 1 application topically 2 (two) times a day. Abdominal folds 04/28/19 23 Active acetaminophen (TYLENOL) 325 mg tablet Take 650 mg by mouth every 8 (eight) hours as needed for pain. Active amoxicillin (AMOXIL) 500 mg capsule Take 1,000 mg by mouth as directed. Take 2 tablets by mouth 30-60 min prior to any dental procedure. 05/02/19 23 Active sennosides (senna) 8.6 mg tablet Take [...] before dialysis for SBP less than 120). 06/20/19 Active atorvastatin (LIPITOR) 20 mg tablet Take 1 tablet (20 mg total) by mouth at bedtime. 06/20/19 Active magnesium oxide (MAG-OX) 400 mg (241.3 mg magnesium) tablet Take 1 tablet (400 mg total) by mouth 2 (two) times a day before breakfast and dinner. 06/20/[address] tablet Take 1 tablet (81 mg total) by mouth daily. 06/20/19 Active ondansetron ODT (ZOFRAN-ODT) 4 mg disintegrating tablet Dissolve 1 tablet (4 mg total) in the mouth every 8 (eight) hours as needed for nausea or vomiting. 20 tablet 06/20/19 Active metoprolol tartrate (LOPRESSOR) 25 mg tablet Take 0.5 tablets (12.5 mg total) by mouth as directed. Take daily after dialysis on (dialysis days) and BID non-dialysis days 150 tablet 3 11/30/19 Active mirtazapine (Remeron) 30 mg tablet Take 1 tablet (30 mg total) by mouth at bedtime. 90 tablet 3 10/29/19 24 025 Active buprenorphine (Butrans) 10 mcg/hourIndication s:Chronic Pain/Nonacute Pain Place 1 patch on the skin once a week Indication: Chronic Pain/Nonacute Pain. 01/07/20 24 Active HYDROmorphone (Dilaudid) 2 mg tabletIndications: Chronic Pain/Nonacute Pain Take 1 tablet (2 mg total) by mouth every 3 (three) hours as needed for pain Indication: Chronic Pain/Nonacute Pain. 01/07/20 24 Active Active Problems Problem Noted Date Diagnosed [...] (05/19/2022): Added automatically from request for surgery [id number] Hyperparathyroidism Renal Secondary 01/17/2021 Urinary Tract Infection [...] Tobacco: Unknown Tobacco Cessation:Counseling Given: Not Answered Dental Answer Date Recorded Dental: Regular Dentist [...] lb 11.6 oz) 03/11/2 023 12:20 PM HORTICULTURAL FARM MANAGER Height 165.1 cm (5' 5) 2022 12:3 0 PM HORTICULTURAL FARM MANAGER Body Mass Index 24.25 2022 12:30 PM HORTICULTURAL FARM MANAGER Results * (ABNORMAL) Basic Metabolic Panel (06/19/2022 [...] 4:56 AM CDT 06/19/2022 5:57 AM CDT us Chance Santos M.D. LAB BLOOD ADD-ON Final Res ult [facility] [address] [place] [address], [place] DTL [facility] [address] [place] [address] from Last 3 Months or Most Recently Relevant to Health Maintenance
--- OUTSIDE RECORDS SUMMARY | 2024-02-07 08:38 | XMS_ITS | Clinical Summary ---
Author Organization [facility] Address [address] [place] [address] Care Team Providers Care Air Pollution Engineer Name Role Phone Unavailable Primary Care Provider Unavailabl e Source Comments Patient records contain information from all sites at [facility]. For routine questions regarding patient records, call [phone] during business hours, M-F 8:00 AM - 5:00 PM Central Time. Record requests for emergency care only can be directed to [phone] at any time.[facility] Allergies Active Allergy Reactions Criticality Noted [...] a week Indication: Chronic Pain/Nonacute Pain. 01/07/20 Active HYDROmorphone (Dilaudid) 2 mg tabletIndications: Chronic Pain/Nonacute Pain Take 1 tablet (2 mg total) by mouth every 3 (three) hours as needed for pain Indication: Chronic Pain/Nonacute Pain. 01/07/20 Active Active Problems Problem Noted Date Diagnosed [...] (05/19/2022): Added automatically from request for surgery [id number] Hyperparathyroidism Renal Secondary 01/17/2021 Urinary Tract Infection [...] Communication Division of Nephrology and Hypertension in [place], [place] [address] [place] [phone] Randal Weeks Jr., D.O. Rx Prior Authorization (buprenorphine (Butrans) 10 mcg/hour) 01/07/2024 Documentation Division of Nephrology and Hypertension in [place], [place] [address] [place] [phone] Randal Weeks Jr., D.O. 01/07/2024 Orders Only Division of Nephrology and Hypertension in [place], [place] [address] [place] [phone] Randal Weeks Jr., D.O. 11/07/2023 Orders Only Division of Nephrology and Hypertension, [facility], in [place], [place] [address] [place] [address] Jenna Neri, GLADYS, C.N.P., M.S.N. from Last [...] (145 lb 11.6 oz) 023 12:20 PM CABLE FERRY OPERATOR Height 165.1 cm (5' 5) 2022 12:3 0 PM CABLE FERRY OPERATOR Body Mass Index 24.25 2022 12:30 PM CABLE FERRY OPERATOR Plan of Treatment Health Maintenance Due Date Last Done Comments Generalized Anxiety (ZA-7) 1945 Office Visit for Blood Pressure Check / Re-check 1945 Hepatitis B Vaccines (1 of 3 - Risk Dialysis 4-dose series) 1963 Zoster Vaccines (2 of 3) 11/17/2015 09/22/2015 RSV vaccine - (32-36 weeks) or 60+ years (1 - 1-dose 75+ series) 06/07/2018 Depression Screening (Annual PHQ-2) 04/09/2023 Fall Risk Screen (Annual) 04/09/2023 COVID-19 Vaccine (2023- season) 2023 01/30/2023, 01/16/2022, 01/20/2021, Additional history exists Controlled Substance Agreement 01/07/2024 Controlled Substance Monitoring (PHQ-9) 01/07/2024 Controlled Substance Monitoring 01/07/2024 Opioid Risk Tool (ORT) 01/07/2024 PEG assessment for Opioid therapy 01/07/2024 Influenza Vaccine (#1) 2024 , 01/12/2021, 01/20/2020, Additional history exists Creatinine Level (Kidney Function Test) 07/06/2024 07/07/2023, 07/06/2023, 07/05/2023, Additional history exists Sodium Level 07/06/2024 07/07/2023, 06/08, 07/05/2023, Additional history exists Potassium Level 07/07/2024 07/08/2023, 06/09, 07/06/2023, Additional history exists DTaP,Tdap,and Td Vaccines (2 - Td or Tdap) 11/14/2027 11/13/2017 Pneumococcal vaccine (65+ years) Completed 08/19/2015, 01/20/2010 IPV Vaccines Aged Out No longer eligi ble based on patient's age to complete this topic Medical Devices Implanted Type Area Manual Lathe Operator Device Identifier Shelf Expiration Date Model / Serial / Lot Clp Lgc Lgt Ti Sm - [id number] Implanted:Qty : 1 on 06/06/2022 by Garfield Pavon M.D. at [facility] Hardware e.g. pins/screws/ rods Left: Arm Ethicon [id number] / / Clp Hrzn Ti 6 Dave Dempsey Anthony - [id number] Implanted:Qty : 1 on 06/06/2022 by Garfield Pavon M.D. at [facility] Hardware e.g. pins/screws/ rods Left: Arm [employer] [id number] / / Clp Lgc Lgt Ti Sm - [id number] Implanted:Qty : 1 on 06/11/2022 by Garfield Pavon M.D. at [facility] Hardware e.g. pins/screws/ rods Ethicon [id number] 02/06/2027 LT100 / / [id number] Clp Hrzn Ti 6 Clp Anthony - [id number] Implanted:Qty : 1 on 06/11/2022 by Garfield Pavon M.D. at [facility] Hardware e.g. pins/screws/ rods Teleflex [employer] [id number] 11/28/2026 [id number] / / [id number] Clp Hrzn Ti 6 Clp Md Anthony - [id number] Implanted:Qty : 1 on 06/12/2022 by Garfield Pavon M.D. at [facility] Hardware e.g. pins/screws/ rods [employer] [id number] 11/28/2026 [id number] / / [id number] Clp Lgc Lgt Ti Sm - [id number] Implanted:Qty : 1 on 06/12/2022 by Garfield Pavon M.D. at [facility] Hardware e.g. pins/screws/ rods Ethicon [id number] 02/06/2027 LT100 / / [id number] [facility] 0.88 - [id number] Implanted:Qty : 1 on 06/12/2022 by Garfield Pavon M.D. at [facility] Mesh or Patch Synovis 03/15/2023 [id number] / / [id number] Explanted Type Area Manual Lathe Operator Device Identifier Shelf Expiration Date Model / Serial / Lot [facility] 4-7x45 - [id number] - [id number] Implanted:Qty : 1 on 06/06/2022 by Garfield Pavon M.D. at [facility] Explanted:Qty : 1 on 06/12/2022 by Alejandro Keller M.B.BGatitoSGatito at [facility] Vascular Graft Left: Arterial [place] 11/01/2025 [id number] / [id number] / Description:Left upper extre mity graft [...] CDT Chance Santos M.D. LAB BLOOD ADD-ON Final Res ult [facility] [address] [place] [address], [facility] DTL [facility] [address] [place] [address] from Last 3 Months or Most Recently Relevant to Health Maintenance Insurance [facility] Advance Directives For more information, please contact: [phone] * Full Code (Latest Code Status on [...]
--- OUTSIDE RECORDS SUMMARY | 2024-02-07 08:38 | XMS_ITS | Encounter Summary ---
Author Organization [facility] Address [address] [place] [address] Care Team Providers Care Condenser Winder Name Role Phone Unavailable Primary Care Provider Unavailabl e Encounter Details Date Type Department Care Team (Late st Contact Info) Description 01/07/2024 Documentation Division of Nephrology and Hypertension in [place], [place] [address] [place] [address] Randal Weeks Jr., Sharon.O. [address] [place] [address] Social History Tobacco Use Types Packs/Day Years [...] havebeen attempting to get communication with the care home to determine her analgesics strategy. Today I was able to make connection with their nurse practitioner who helps with management of the patient's at the [address] [place] [address]. Currently she is receiving a exchanged daily. [...] very frequently for breakthrough pain at the care home facility. We discussed that likely it is [...]
--- OUTSIDE RECORDS SUMMARY | 2024-02-07 08:38 | XMS_ITS | Encounter Summary ---
Author Organization [facility] Address [address] [place] [address] Care Team Providers Care Hotel Services Supervisor Name Role Phone Unavailable Primary Care Provider Unavailabl e Reason for Visit * Reason Onset Date Comments Rx Prior Authorization 01/07/2024 buprenorp shailesh (Butrans) 10 mcg/hour Encounter Details Date Type Department Care Team (Latest Contact Info) Description 01/07/2024 Clinical Communication Division of Nephrology and Hypertension in [place], [place] [address] [place] [address] Randal Weeks Jr., D.O. [address] [place] [address] Rx Prior Authorization (buprenorphine (Butrans) 10 mcg/hour) [...]
--- OUTSIDE RECORDS SUMMARY | 2024-02-07 08:38 | XMS_ITS | Clinical Summary ---
Author Organization [facility] Address [address] [place] [address] Phone Care Team Providers Care Vp Informatics Name Role Phone Eusebia Whitaker MD Primary Care Provider [phone] Allergies Active Allergy Reactions Criticality Noted Date [...] 3 (moderate) 02/07 Proteinuria 02/07/2019 Anemia 02/07/2019 [facility] current use of non-steroidal anti-infl ammatories 02/07/2019 [...] 06/07/2008 Influenza Vaccine (#1) 2023 Care Teams Vp Informatics Relationship Specialty Start Date End Date Eusebia Whitaker MD [address] [place] [address] PCP - General Family Medicine 11/24/19
--- OUTSIDE RECORDS SUMMARY | 2024-02-07 08:38 | XMS_ITS | Referral Summary ---
Author Organization [facility] Address [address] [place] [address] Care Team Providers Care Counter Help Name Role Phone Unavailable Primary Care Provider Unavailabl e Source Comments Patient records contain information from all sites at [facility]. For routine questions regarding patient records, call [phone] during business hours, M-F 8:00 AM - 5:00 PM Central Time. Record requests for emergency care only can be directed to [phone] at any time.[facility] Encounters Date Type Department Care Team Description 01/07/2024 Clinical Communication Division of Nephrology and Hypertension in [place], [place] [address] [place] [phone] Randal Weeks Jr., Sharon.O. Rx Prior Authorization (buprenorphine (Butrans) 10 mcg/hour) 01/07/2024 Documentation Division of Nephrology and Hypertension in [place], [place] [address] [place] [phone] Randal Weeks Jr., D.O. 01/07/2024 Orders Only Division of Nephrology and Hypertension in [place], [place] [address] [place] [phone] Randal Weeks Jr., D.O. 11/07/2023 Orders Only Division of Nephrology and Hypertension, [facility], in [place], [place] [address] [place] [phone] Jenna Neri, GLADYS, C.N.P., M.S.N. from Last [...] dialysis for SBP less than 120). 06/20/19 23 Active atorvastatin (LIPITOR) 20 mg tablet Take 1 tablet (20 mg total) by mouth at bedtime. 06/20/19 23 Active magnesium oxide (MAG-OX) 400 mg (241.3 mg magnesium) tablet Take 1 tablet (400 mg total) by mouth 2 (two) times a day before breakfast and dinner. 06/20/19 [address] Active aspirin [address] tablet Take 1 tablet (81 mg total) by mouth daily. 06/20/19 23 Active ondansetron ODT (ZOFRAN-ODT) 4 mg disintegrating tablet Dissolve 1 tablet (4 mg total) in the mouth every 8 (eight) hours as needed for nausea or vomiting. 20 tablet 06/20/19 23 Active metoprolol tartrate (LOPRESSOR) 25 mg tablet Take 0.5 tablets (12.5 mg total) by mouth as directed. Take daily after dialysis on (dialysis days) and BID non-dialysis days 150 tablet 3 11/30/19 23 Active mirtazapine (Remeron) 30 mg tablet Take [...] (05/19/2022): Added automatically from request for surgery [id number] Hyperparathyroidism Renal Secondary 01/17/2021 Urinary Tract Infection [...] (145 lb 11.6 oz) 023 12:20 PM OPERATIONAL INTELLIGENCE OFFICER Height 165.1 cm (5' 5) 2022 12:3 0 PM OPERATIONAL INTELLIGENCE OFFICER Body Mass Index 24.25 2022 12:30 PM OPERATIONAL INTELLIGENCE OFFICER Plan of Treatment Not on file Medical Devices Implanted Type Area Entry Level Sales Representative Device Identifier Shelf Expiration Date Model / Serial / Lot Clp Formerly [facility] - [id number] Implanted:Qty : 1 on 06/06/2022 by Garfield Pavon M.D. at [facility] Hardware e.g. pins/screws/ rods Left: Arm Ethicon LT100 / / Clp Hrzn Ti 6 Clp Anthony - [id number] Implanted:Qty : 1 on 06/06/2022 by Garfield Pavon M.D. at [facility] Hardware e.g. pins/screws/ rods Left: Arm [employer]flex [employer] [id number] / / Clp Lgc t [facility] - [id number] Implanted:Qty : 1 on 06/11/2022 by Garfield Pavon M.D. at [facility] Hardware e.g. pins/screws/ rods Ethicon [id number] 02/06/2027 LT100 / / [id number] Clp Hrzn Ti 6 Clp Md Anthony - [id number] Implanted:Qty : 1 on 06/11/2022 by Garfield Pavon M.D. at [facility] Hardware e.g. pins/screws/ rods Tele[employer] [id number] 11/28/2026 [id number] / / [id number] Clp Hrzn Ti 6 Clp Md Anthony - [id number] Implanted:Qty : 1 on 06/12/2022 by Garfield Pavon M.D. at [facility] Hardware e.g. pins/screws/ rods [employer] [id number] 11/28/2026 [id number] / / [id number] Clp Lgc Lgt Ti Sm - [id number] Implanted:Qty : 1 on 06/12/2022 by Garfield Pavon M.D. at [facility] Hardware e.g. pins/screws/ rods Ethicon [id number] 02/06/2027 LT100 / / [id number] [facility] 0.88 - [id number] Implanted:Qty : 1 on 06/12/2022 by Garfield Pavon M.D. at [facility] Mesh or Patch Synovis 03/15/2023 [id number] / / [id number] Explanted Type Area Entry Level Sales Representative Device Identifier Shelf Expiration Date Model / Serial / Lot [facility] 4-7x45 - [id number] - [id number] Implanted:Qty : 1 on 06/06/2022 by Garfield Pavon M.D. at [facility] Explanted:Qty : 1 on 06/12/2022 by Alejandro Keller M.B.B.SGatito at [facility] Vascular Graft Left: Arterial [place] 11/01/2025 [id number] / [id number] / Description:Left upper extre mity graft [...] M.D. LAB BLOOD ADD-ON Final Res ult [facility] [place] [address] [place] [address], [facility] DTL [facility] [address] [place] [address] from Last 3 Months or Most Recently Relevant to Health Maintenance Insurance [employer] Advance Directives For more information, please contact: [phone] * Full Code (Latest Code Status on [...]
--- OUTSIDE RECORDS SUMMARY | 2024-02-07 08:38 | XMS_ITS | Clinical Summary ---
Author Organization [facility] Address [address] [place] [address] Care Team Providers Care Lime Kiln Worker Helper Name Role Phone Eusebia Whitaker MD Primary Care Provider [phone] Allergies No known active allergies Medications carvedilol (COREG) 12.5 MG tablet Take 12.5 mg by mouth 2 times daily (with meals) Active furosemide (LASIX) 20 MG tablet Take 20 mg by mouth 2 times daily Active Multiple Vitamins-Mineral s (MULTIVITAMIN ADULT PO) Take 1 tablet by [...] School Help Needed Not on file 12/30 Comments Unknown Sex and Gender Information Value Date Recorded Sex Assigned at Not on file Legal Sex Female 1:51 PM CDT Gender Identity Not on file [...] of Treatment Not on file Care Teams Lime Kiln Worker Helper Relationship Specialty Start Date End Date Eusebia Whitaker MD [facility] [address] [place] [address] PCP - General Family Practice 09/25/19
--- OUTSIDE RECORDS SUMMARY | 2024-02-07 08:38 | XMS_ITS | Referral Summary ---
Author Organization [facility] Address [address] [place] [address] Care Team Providers Care Material Mover Name Role Phone Eusebia Whitaker MD Primary Care Provider [phone] Allergies No known active allergies Medications carvedilol [...] of Treatment Not on file Care Teams Material Mover Relationship Specialty Start Date End Date Eusebia Whitaker MD [facility] [address] [place] [address] PCP - General Family Practice 09/25/19
--- OUTSIDE RECORDS SUMMARY | 2024-02-07 08:38 | XMS_ITS ---
Author Organization [facility] Address [address] [place] [address] Care Team Providers Care Support Service Tech Name Role Phone Unavailable Unavailable Unavailable Surgery Details Not on file Complications Check Surgery Details section. Procedure Estimated Blood Loss Check Surgery Details section. Procedure Findings Check Surgery Details section. Procedure Specimens Taken Check Surgery Details section.
--- OUTSIDE RECORDS SUMMARY | 2024-02-07 08:38 | XMS_ITS | Clinical Summary ---
Author Organization [facility] Address [place], [place] [address] Care Team Providers Care Blood Bank Laboratory Technician Name Role Phone Erickson Vinson MD Primary [...] Patient taking differently:1 mg OralDAILY AFTERNOON, Informant: [facility], Reported on 06/25/2023 pantoprazole (PROTONIX) 40 [...] (06/26/2023): Added automatically from request for surgery [id number] Subacute bacterial endocarditis 11/30/2021 PAF (paroxysmal atrial [...] alcohol) occasional Social Connections Answer Date Recorded Do you often feel lonely or isolated from those around you? 0 06/04/2023 Financial Resource Strain Answer Date R ecorded Difficulty of Paying Living Expenses 3 06/04/2023 Difficulty of Paying Living Expenses Not on file 06/04/2023 Food Insecurity Answer Date Recorded Do you worry your food will run out before you are able to buy more? 1 06/04/2023 Transportation Needs Answer Date Record ed Does lack of transportation keep you from medica l appointments? 1 06/04/2023 Does lack of transportation keep you from work, meetings or getting things that you need? 1 06/04/2023 Housing Stability Answer Date Recorded What is your housing situation today? 1 06/04/2023 Sex and Gender Information Value [...] Documents on File Type Date Recorded Patient Brand Advisor Expl anation POLST 12/01/2021 * Full Code [...] Comments Code Status Discussion: Discussed Care Teams Blood Bank Laboratory Technician Relationship Specialty Start Date End Date Erickson Vinson MD [address] [place] [address] PCP - General Family Practice 02/01/23
--- OUTSIDE RECORDS SUMMARY | 2024-02-07 08:38 | XMS_ITS | Encounter Summary ---
Author Organization [facility] Address [address] [place] [address] Care Team Providers Care Wash Barrel Leader Name Role Phone Unavailable Primary Care Provider Unavailabl e Reason for Referral * Medication Prior Authorization - Closed Specialty Diagnoses / Procedures Referred By Hakeem t Referred To Contact Randal Weeks Jr., D.O. [address] [place] [phone] Phone: tel: fax: Referral ID Status Reason Start Date Expiration Date Visits Re quested Visits Authorized [id number] Closed 1 1 Encounter Details Date Type Department Care Team (Late st Contact Info) Description 01/07/2024 Orders Only Division of Nephrology and Hypertension in [place], [place] [address] [place] [phone] Randal Weeks Jr., D.O. [address] [place] [phone] Social History Tobacco Use Types Packs/Day Years [...]
== END 2024-02-07 08:37 | disposition home or self-care (01) ==
LOC: WOUND 08:36
PROVIDERS: PCP Family Medicine; Visit Provider Nurse Practitioner Family
DX: I73.9 Peripheral vascular disease, unspecified (principal); R26.9 Unspecified abnormalities of gait and mobility; Z99.3 Dependence on wheelchair
CPT/HCPCS: G0463

== ENCOUNTER 2024-04-06 11:04 | Outpatient (CLI) | payer OTHER, SELFPAY | END 2024-04-06 11:05 | disposition home or self-care (01) | LOC: AMB 04-08 14:33 | PROVIDERS: PCP Family Medicine; Visit Provider Family Medicine | DX: R07.89 Other chest pain (principal); T82.539A Leakage of unspecified cardiac and vascular devices and implants, initial encounter | CPT/HCPCS: A0425; A0427 ==

== ENCOUNTER 2024-04-29 12:45 | Outpatient (REF) | payer OTHER, SELFPAY ==
[2024-04-29 14:14] LABS: PCR FLU A Negative PCR FLU A (Negative); PCR FLU B Negative PCR FLU B (Negative); PCR RSV Negative PCR RSV (Negative); SARS PCR* Negative SARS-CoV-2 (Negative)
== END 2024-04-29 12:46 | disposition home or self-care (01) ==
LOC: NPINS 12:45
PROVIDERS: PCP Family Medicine; Visit Provider Nurse Practitioner Gerontology
DX: R09.89 Other specified symptoms and signs involving the circulatory and respiratory systems (principal)
CPT/HCPCS: 87631; 87635

== ENCOUNTER 2024-06-13 12:55 | Outpatient (CLI) | payer OTHER, SELFPAY | END 2024-06-13 12:56 | disposition home or self-care (01) | LOC: AMB 06-16 11:10 | PROVIDERS: PCP Family Medicine; Visit Provider Family Medicine | DX: R50.9 Fever, unspecified (principal); I10 Essential (primary) hypertension | CPT/HCPCS: A0425; A0427 ==

== ENCOUNTER 2024-06-13 13:19 | Emergency (ER) | payer OTHER, SELFPAY ==
[2024-06-13] VITALS (38 sets, daily range): BP systolic 132–221; BP diastolic 59–105; PULSE 80–112; RESP 10–28; TEMP 36.9–38.9; O2SAT 88–99
--- OUTSIDE RECORDS SUMMARY | 2024-06-13 13:23 | XMS_ITS | Clinical Summary ---
Author Organization [facility] Address [address] [place] [address] Phone Care Team Providers Care Heat Treating Bluer Name Role Phone Eusebia Whitaker MD Primary Care Provider [phone] Allergies Active Allergy Reactions Criticality Noted Date [...] 3 (moderate) 02/07 Proteinuria 02/07/2019 Anemia 02/07/2019 oil heaterman current use of non-steroidal anti-infl ammatories 02/07/2019 [...] 60 11/28/2019 12:28 PM CDT Temperature 36.8 C (98.2 F) 11/28/2019 12:28 PM CDT Respiratory Rate - [...] 06/07/2008 Influenza Vaccine (#1) 2023 Care Teams Heat Treating Bluer Relationship Specialty Start Date End Date Schegabrielle, Eusebia, MD [address] [place] [address] PCP - General Family Medicine 11/24/19
--- OUTSIDE RECORDS SUMMARY | 2024-06-13 13:23 | XMS_ITS | Clinical Summary ---
Author Organization [facility] Address [address] [place] [id number] Care Team Providers Care Clerical Adviser Name Role Phone Erickson Vinson MD Primary Care Provider Lizeth labtammie Allergies Active Allergy Reactions Criticality Noted Date Comments Simvastatin Dizziness 11/29/2017 Medications Dialyvite 100-1 mg tabIndications:timothy min deficiency Take [...] affected area(s) every Sunday, and Sunday. 06/14/19 24 Active acetaminophen (TYLENOL EXTRA STRGTH) 500 mg tablet Take 1,000 mg by mouth three times daily. 06/01/19 24 Active SantyL ointment Apply topically to affected area(s) every Sunday, and Sunday. To left lower leg wound 06/19/19 24 Active amLODIPine (NORVASC) 2.5 mg tabletIndications:H TN (hypertension) Take 3 Tablets (7.5 mg) by mouth once daily. 07/04/19 Active lidocaine 4 % creamIndications:sk in irritation,pain Apply to left leg wound TID 07/04/19 24 Active mirtazapine (REMERON) 30 mg tabletIndications:jenny rodrigues depressive disorder Take 0.5 Tablets (15 mg) [...] hairless skin once weekly. 4 Patch 07/13/19 Active HYDROmorphone (DILAUDID) 1 mg/mL liquidIndications:P ain Take 0.5 mL (0.5 mg) by mouth every 6 hours if needed for Pain. 15 mL 07/09/19 24 Active acetaminophen (TYLENOL EXTRA STRGTH) 500 mg tabletIndications:C hest wall pain Take 1 Tablet (500 mg) by mouth every 6 hours if needed for Pain. Max acetaminophen dose: 4000mg in 24 hrs. 40 Tablet 04/06/20 24 Active lidocaine 5 % topical patchIndications:Ch est wall pain Apply to intact skin to cover most painful area for max 12hr per 24hr period. 15 Patch 04/06/20 24 Active OLANzapine (ZYPREXA ZYDIS) 5 mg disintegrating tabletIndications:C hest wall pain Place 1 Tablet (5 mg) on the tongue every 8 hours if needed (Pain not controlled by other medications). 5 Tablet 04/06/20 Active Active Problems Problem Noted Date Diagnosed [...] (06/26/2023): Added automatically from request for surgery [id number] Subacute bacterial endocarditis 11/30/2021 PAF (paroxysmal atrial [...] Encounters Date Type Department Care Team Description 04/06/2024 2:18 PM SKID MAN - 04/06/2024 9:20 PM SKID MAN [facility] [address] [place] [address] Tiffanie Chris PA Haug, Yousuf Garner MD Port-A-Cath in place (Primary Dx); Chest wall pain Discharge Disposition: Home Self Care 04/06/2024 Travel from Last 3 Months Family History [...] is your housing situation today? 1 06/04/2023 Interpersonal Safety Answer Date Record ed Are you being hit, kicked, p ushed or yelled at (see row info)? No 04/06/2024 Interpersonal Safety Abuse 12 - 18 Not on file 04/06/2024 Interpersonal Safety Ambulatory Vulnerability No t on file 04/06/2024 Utilities Answer Date Recorded Do you have trouble paying f or utilities (for example, heat, electricity, water, phone)? 1 06/04/2023 Comments No Sex and Gender Information Value Date Recorded Sex Assigned at Not on file Legal Sex Female 6:20 AM SKID MAN Gender Identity Not on file Sexual Orientation Not on file Obstetrics History Last Filed Vital Signs Vital Sign Reading Time Taken Comments Blood Pressure 166/79 04/06/2024 8:45 PM SKID MAN Pulse 71 04/06/2024 8:45 PM SKID MAN Temperature 36 C (96.8 F) 04/06/2024 12:28 PM SKID MAN Respiratory Rate 18 04/06/2024 12:28 PM SKID MAN Oxygen Saturation 97% 04/06/2024 8:45 PM SKID MAN Inhaled Oxygen Concentration - - Weight 67.1 kg (148 lb) 04/06/2024 2:32 PM SKID MAN Height 154.9 cm (5' 1) 04/06/2024 2:32 PM SKID MAN Body Mass Index 27.96 04/06/2024 2:32 PM SKID MAN Plan of Treatment Health Maintenance Due Date Last Done Comments Tdap 06/07/1956 Depression screening for age 12+ 1955 Pneumococcal series for age 50+ (1 of 2 - PCV) 06/07/1962 Tetanus booster 1963 Zoster (shingles) series for [...] Procedure Name Priority Date/Time Associated Diagnosis Comments XR CHEST 1 VIEW PORTABLE STAT 04/06/2024 4:44 PM SKID MAN EXTRA TUBE GOLD/SST Today 04/06/2024 4 :26 PM SKID MAN EXTRA TUBE LAVENDER Today 04/06/2024 4 :26 PM SKID MAN BASIC METABOLIC PANEL STAT 04/06/2024 4:26 PM SKID MAN CBC W PLT NO DIFF STAT 04/06/2024 3:0 7 PM SKID MAN SCAN-BONE DENSITOMETRY DEXA 12/02/2018 12:00 AM CDT from Last 3 Months or Most Recently Relevant to Health Maintenance Results * XR CHEST 1 VIEW PORTABLE (04/06/2024 4:44 PM SKID MAN) Anatomical Region Laterality Modality HEART, THORAX, CHEST Computed Ra diography 04/06/2024 4:44 PM SKID MAN Impressions 04/06/2024 5:44 PM SKID MAN Right IJ catheter tip terminates in the right atrium. Cardiac silhouette and mediastinal contours are unchanged. Mild pulmonary edema. No focal consolidation, pleural effusion, or pneumothorax. Narrative 04/06/2024 5:44 PM SKID MAN For Patients: As a result of the Cures Act, medical imaging exams and procedure reports are released immediately into your electronic medical record. You may view this report before your referring provider. If you have questions, please contact your health care provider. EXAM: XR CHEST 1 VIEW PORTABLE [facility] DATE: 04/06/2024 INDICATION: * Permacath placement for dialysis COMPARISON: 06/25/23 xray, 06/04/23 xray Procedure Note Bernard Go MD - 04/06/2024 For Patients: As a result of the Cures Act, medical imagingexams and procedure reports are released immediately into your electronicmedical record. You may view this report before your referring provider.If you have questions, please contact your health care provider. EXAM: XR CHEST 1 VIEW PORTABLE [facility] DATE: 04/06/2024 INDICATION: * Permacath placement for dialysis COMPARISON: 06/25/23 xray, 06/04/23 xray IMPRESSION: Right IJ catheter tip terminates in the right atrium. Cardiac silhouetteand mediastinal contours are unchanged. Mild pulmonary edema. No focalconsolidation, pleural effusion, or pneumothorax. Tiffanie [facility] Final Resul t * EXTRA TUBE LAVENDER (04/06/2024 4:26 PM SKID MAN) Blood BLOOD SPECIMEN / Unknown Non-Lab Venipuncture / Unknown 04/06/2024 4:26 PM SKID MAN 04/06/2024 4:32 PM SKID MAN us Doctor Unknown LABORATORY Final Result [facility] SENDOUT INTERNAL ZIP [id number] [address] [place] [address] * EXTRA TUBE GOLD/SST (04/06/2024 4:26 PM SKID MAN) Blood BLOOD SPECIMEN / Unknown Non-Lab Venipuncture / Unknown 04/06/2024 4:26 PM SKID MAN 04/06/2024 4:32 PM SKID MAN us Doctor Unknown LABORATORY Final Result [facility] SENDOUT INTERNAL ZIP [id number] [address] [place] [address] * (ABNORMAL) BASIC METABOLIC PANEL (04/06/2024 4:26 PM SKID MAN) SODIUM 133(L) 136 - 145 mmol/L 04/06/2024 4:55 PM [facility] POTASSIUM 4.0 3.5 - 5.1 mmol/L 04/06/2024 4:55 PM [facility] CHLORIDE 94(L) 98 - 107 mmol/L 04/06/2024 4:55 PM [facility] CO2,TOTAL 25 22 - 29 mmol/L 04/06/2024 4:55 PM [facility] ANION GAP 14 5 - 18 04/06/2024 4:55 PM [facility] GLUCOSE 89 70 - 99 mg/dL 04/06/2024 4:55 PM [facility] CALCIUM 9.5 8.8 - 10.4 mg/dL 04/06/2024 4:55 PM [facility] Comment: Reference ranges for this test were updated on 02/12/2024 to reflect our healthy population more accurately. Reference range changes are not retroactively applied to results, but previous results using the same methodology can be interpreted in the context of the new reference range. BUN 79(H) 8 - 23 mg/dL 04/06/2024 4:55 PM [facility] CREATININE 3.83(H) 0.50 - 0.90 mg/dL 04/06/2024 4:55 PM [facility] BUN/CREAT RATIO 21(H) 10 - 20 4:55 PM [facility] eGFR 11(L) >90 mL/min/1. 73m2 04/06/2024 4:55 PM [facility] Comment:As of 2021, eG FR is calculated by the CKD-EPI creatinine equation without race adjustment. eGFR can be influenced by muscle mass, exercise, and diet. The reported eGFR is an estimation only and is only applicable if the renal function is stable. Blood BLOOD SPECIMEN / Unknown Non-Lab Venipuncture / Unknown 04/06/2024 4:26 PM SKID MAN 04/06/2024 4:31 PM SKID MAN us Tiffanie LOVELL CHEMISTR[facility] Final Resul t [facility] SENDOUT INTERNAL ZIP [id number] [place] [id number] * (ABNORMAL) CBC W PLT NO DIFF (04/06/2024 3:07 PM SKID MAN) WHITE BLOOD COUNT 4.9 4.5 - 11.0 thou/cu mm 04/06/2024 3:23 PM [facility] RED BLOOD COUNT 4.06 4.00 - 5.20 mil/cu mm 04/06/2024 3:23 PM [facility] HEMOGLOBIN 12.9 12.0 - 16.0 g/dL 04/06/2024 3:23 PM [facility] HEMATOCRIT 37.9 33.0 - 51.0 % 04/06/2024 3:23 PM [facility] MCV 93 80 - 100 fL 04/06/2024 3:23 PM [facility] MCH 31.8 26.0 - 34.0 pg 04/06/2024 3:23 PM [facility] MCHC 34.0 32.0 - 36.0 g/dL 04/06/2024 3:23 PM [facility] RDW 14.9 11.5 - 15.5 % 04/06/2024 3:23 PM [facility] PLATELET COUNT 170 140 - 440 thou/cu mm 04/06/2024 3:23 PM [facility] MPV 11.1(H) 6.5 - 11.0 fL 04/06/2024 3:23 PM [facility] NRBC 0.0 % 04/06/2024 3:23 PM SKID MAN [facility] ABS NRBC 0.0 thou /cu mm 04/06/2024 3:23 PM SKID MAN [facility] Blood BLOOD SPECIMEN / Unknown Non-Lab Venipuncture / Unknown 04/06/2024 3:07 PM SKID MAN 04/06/2024 3:12 PM SKID MAN Narrative [facility] - 04/06/2024 3:23 PM SKID MAN RN to order if patient presents with anterior chest pain, consistent with angina. us Tiffanie LOVELL HEMATOLOGY Final Resul t [facility] SENDOUT INTERNAL ZIP [id number] [address] [place] [address] * SCAN-BONE DENSITOMETRY DEXA (12/02/2018 12:00 AM CDT) Anatomical Region Laterality Modality Other us Scanner OTHER Final Result from Last 3 Months or Most Recently Relevant to Health Maintenance Insurance MEDICARE PART A HB ONLY [facility] Advance Directives Documents on File Type Date Recorded Patient Dynamometer Tuner Dayron ARCINIEGA 12/01/2021 * Full Code (Latest [...] Comments Code Status Discussion: Discussed Care Teams Clerical Adviser Relationship Specialty Start Date End Date Erickson Vinson MD [address] [place] [id number] PCP - General Family Practice 02/01/23
--- OUTSIDE RECORDS SUMMARY | 2024-06-13 13:23 | XMS_ITS | Clinical Summary ---
Author Organization [facility] Address [address] [place] [id number] Care Team Providers Care Wound Care Nurse Name Role Phone Eusebia Whitaker MD Primary Care Provider [phone] Allergies No known active allergies Medications carvedilol [...] 56 10/01/2019 9:39 AM CDT Temperature 36.6 C (97.9 F) 10/01/2019 8:16 AM CDT Respiratory Rate 18 10/01/2019 9:39 AM CDT Oxygen Saturation 97% 10/01/2019 8:16 AM CDT Inhaled Oxygen Concentration - - Weight - - Height 160 cm (5' 3) 10/01/2019 8:16 AM CDT Body Mass Index - - Plan of Treatment Not on file Care Teams Wound Care Nurse Relationship Specialty Start Date End Date Eusebia Whitaker MD [facility] [address] [place] [address] PCP - General Family Practice 09/25/19
--- NOTE | 2024-06-13 13:36 | ED.GENADULT ---
HPI - General Adult General Chief complaint: Weakness Stated complaint: Weakness Time Seen by Provider: 06/13/24 13:33 History of Present Illness HPI narrative: Pt was at dialysis today. Did complete dialysis run. Pt is weaker than usual, shaky/chills, fever. Pt was hitting/ swinging at EMS and refused to allow IV start . EMS reports pt left arm is restricted related to prior stroke. 79-year-old woman presenting to the emergency department with concern of weakness and fever. Daughter reports that over the last 2 or 3 weeks has had cough and cold symptoms. Has been tested numerous times for COVID I suspect also influenza and RSV has been negative. Today during complete dialysis run seemed weaker than usual. Daughter does report that has some wounds on lower extremities with history of peripheral arterial disease. Also with chronically sore lower legs. Does have feeding tube. Does make a very little bit of urine. No diarrhea recently. No new pain complaints. End-stage renal disease with history of diabetes. Receives Sunday dialysis with again dialysis occurring today Related Data Home Medications ?Medication ?Instructions ?Recorded ?Confirmed acetaminophen 650 mg 650 mg PO .1-2X/Day 11/09/21 03/18/24 tablet,extended release amlodipine 2.5 mg tablet 7.5 mg PO QDAY 03/18/24 03/18/24 apixaban 2.5 mg tablet 2.5 mg feeding tube BID 03/18/24 03/18/24 buprenorphine 15 mcg/hour weekly 1 patch transdermal Q7D 03/18/24 03/18/24 transdermal patch hydromorphone 2 mg tablet 2 mg PO Q4-6H PRN 03/18/24 03/18/24 metoprolol succinate 25 mg 12.5 mg PO QDAY 03/18/24 03/18/24 tablet,extended release 24 hr pantoprazole 40 mg tablet,delayed 40 mg PO QDAY 03/18/24 03/18/24 release rosuvastatin 5 mg tablet 2.5 mg PO QDAY 03/18/24 03/18/24 Allergies Allergy/AdvReac Type Severity Reaction Status Date / Time simvastatin AdvReac Intermediate Joint Pain Verified 03/18/24 11:12 Review of Systems Status of ROS: Reports: unobtainable due to mental status PFSH PFS Medical History POLST (Physician Orders for Life-Sustaining Treatment) ?Z78.9 - Other specified health status (ICD-10) Stage 5 chronic kidney disease due to hypertension ?I12.0 - Hypertensive chronic kidney disease with stage 5 chronic kidney disease or end stage renal disease (ICD-10) ?N18.5 - Chronic kidney disease, stage 5 (ICD-10) Anemia ?D64.9 - Anemia, unspecified (ICD-10) Surgical History History of total hip arthroplasty ?Z96.649 - Presence of unspecified artificial hip joint (ICD-10) Status post hip replacement ?Z96.649 - Presence of unspecified artificial hip joint (ICD-10) History of dilation and curettage (12/08/10) ?Z98.890 - Other specified postprocedural states (ICD-10) History of colonoscopy ?Z98.890 - Other specified postprocedural states (ICD-10) History of carotid endarterectomy ?Z98.890 - Other specified postprocedural states (ICD-10) Social History Smoking Status: Never smoker Do you use any of these nicotine containing products: None Second hand tobacco smoke exposure: No How often do you have a drink containing alcohol: monthly or less How many standard drinks containing alcohol do you have on a typical day: 1 or 2 How often do you have six or more drinks on one occasion: Never AUDIT-C Alcohol total score: 1 Non-prescribed substance use: denies use Caffeine: No service: No Exam Narrative: Exam Narrative: Is breathing heavily in some mild discomfort I think. Mildly tachypneic. A little labored. Daughter is attending at bedside assisting us with blood draw. Intermittently coughing up some very thick white sputum. Oropharynx is moist. Tired but alerts to respond to questions attempting to accommodate, help with exam. Lungs with diffuse trace crepitus. Heart is tachycardic in a regular rhythm. Distant. Abdomen is soft and nontender. G-tube in place without surrounding inflammation. Is wearing attends. Right arm is stiff. Contracture of left hand. Skin is quite warm without rash. Lower extremities are wrapped with soft boots. Removing the boots and wraps reveals well-healing ulceration posterior bilateral lower legs. Right is only pink now. No inflammatory changes. On the left little deeper yet but also without inflammatory changes or drainage at this time. Sniffing with apparent rhinorrhea. Const: Vital Signs, click to edit/add: Vital Signs - 24 hr 06/13/24 13:28 06/13/24 13:48 06/13/24 14:00 Temperature 102.1 F H Pulse Rate 108 H 108 H Pulse Rate [Pulse Oximeter] 105 H Respiratory Rate 28 H 16 21 Blood Pressure Blood Pressure [Ri ght Upper Arm] 221/91 H Pulse Oximetry 95 94 95 Oxygen Delivery Me thod Room Air Room Air 06/13/24 14:15 06/13/24 14:30 06/13/24 14:45 Temperature Pulse Rate Pulse Rate [Pulse Oximeter] Respiratory Rate 24 27 H 21 Blood Pressure Blood Pressure [Ri ght Upper Arm] Pulse Oximetry Oxygen Delivery Me thod 06/13/24 15:00 06/13/24 15:15 06/13/24 15:45 Temperature Pulse Rate 112 H Pulse Rate [Pulse Oximeter] Respiratory Rate 24 23 17 Blood Pressure Blood Pressure [Ri ght Upper Arm] Pulse Oximetry Oxygen Delivery Me thod Room Air 06/13/24 16:00 06/13/24 16:13 06/13/24 16:30 Temperature Pulse Rate 112 H 112 H Pulse Rate [Pulse Oximeter] Respiratory Rate 17 17 25 H Blood Pressure 189/105 H Blood Pressure [Ri ght Upper Arm] Pulse Oximetry Oxygen Delivery Me thod Room Air Documenting provider has reviewed patient's vital signs: yes Course Vital Signs Vital signs: Initial Vital Signs Temperature 102.1 F H 06/13/24 13:28 Temperature Source Axillary 06/13/24 13:28 Pulse Rate 105 H 06/13/24 13:28 Respiratory Rate 28 H 06/13/24 13:28 Blood Pressure 221/91 H 06/13/24 13:28 Blood Pressure Mean 134 H 06/13/24 13:28 Blood Pressure Position Supine 06/13/24 13:28 Pulse Oximetry 95 06/13/24 13:28 Oxygen Delivery Method Room Air 06/13/24 13:28 Vital Signs Temperature 102.1 F H 06/13/24 13:28 Pulse Rate 105 H 06/13/24 13:28 Respiratory Rate 28 H 06/13/24 13:28 Blood Pressure 221/91 H 06/13/24 13:28 Pulse Oximetry 95 06/13/24 13:28 Oxygen Delivery Method Room Air 06/13/24 13:28 Temperature 102.1 F H 06/13/24 13:28 Pulse Rate 112 H 06/13/24 16:13 Respiratory Rate 25 H 06/13/24 16:30 Blood Pressure 189/105 H 06/13/24 16:13 Pulse Oximetry 95 06/13/24 14:00 Oxygen Delivery Method Room Air 06/13/24 16:00 Medications Administered Medications: Discontinued Medications Generic Name Dose Route Start Last Admin Trade Name Joshuaq PRN Reason Stop Dose Admin Acetaminophen 1,000 mg 06/13/24 14:32 06/13/24 16:08 Acetaminophen 500 Mg Tablet PO 06/13/24 14:33 1,000 mg ONCE ONE Administration Hydromorphone HCl 0.5 mg 06/13/24 16:34 06/13/24 16:40 Hydromorphone 0.5 Mg/0.5 Ml Inj IVP 06/13/24 16:35 0.5 mg ONCE ONE Administration Sodium Chloride 500 mls @ 500 mls/hr 06/13/24 14:22 06/13/24 16:01 0.9 % Sodium Chloride 500 Ml IV 06/13/24 15:21 500 mls/hr .Q1H ONE Administration Piperacillin Sod/Tazobactam 100 mls @ 200 mls/hr 06/13/24 17:35 06/13/24 17:47 Sod 3.375 gm/ Sodium Chloride IVPB 06/13/24 17:36 200 mls/hr ONCE ONE Administration Medical Decision Making [facility] Narrative Medical decision making narrative: Certainly have concerns of sepsis here. Looking for source of infection. Pneumonia? Urine? Does not appear to have a cellulitis/new wound concern. Influenza like illness? Concern of fluid overload given end-stage renal and heart failure. Beginning with 500 mL bolus. Has not been hypotensive. Give some acetaminophen. Might be able to obtain cath urinalysis. Ultrasound-guided IV pending. My feeling is this some unspecified viral process creating this fever. Have thankfully managed to place a small IV peripherally. Still with port. Has not yet received acetaminophen. Labs with normal white count. Hemoglobin looks to have improved since June 2023 to 11.8. INR of 1.38 Potassium little low at 2.9 though I would anticipate this going up absence of dialysis. Creatinine is better than last checked at 1.7. This is after dialysis today. Direct bili is slightly elevated at 0.8 with slightly elevated transaminases with an AST of 45 an ALT of 45. Troponin I is indeterminant at 0.05 in the setting of end-stage renal disease as noted. CRP elevated at 11.5 Swabs are negative for COVID, influenza, RSV Pending collection of urinalysis Difficult to bolus fluids with tenuous IV. Blood pressure remains elevated. Fever has improved only to 101 [place] [id number] By my independent read Chest x-ray looks to have some vascular congestion. No clear effusion on the one-view portable. No discrete infiltrate. Urinalysis is not convincing for overwhelming infection frankly with negative nitrite and negative leukocyte esterase. Do not see criteria for sepsis only with SIRS criteria in vitals on arrival. History of renal failure but creatinine pretty good today. On reassessment reports feeling much better. Is more alert and conversant. She quite clearly states that she does not wish to be admitted and wishes to return home. Blood pressure latest 150s over 70s. This is not inconsistent with prior visits though is notably lower than initial presentation today. Without source, prescribing Zosyn and will scan chest abdomen pelvis. Heading off at change of shift. Medical Records Medical records reviewed: Yes I reviewed the patient's medical records Lab Data Lab results reviewed: Yes I reviewed the patient's lab results Labs: Lab Results 06/13/24 06/13/24 06/13/24 Range/Units 13:51 14:15 16:15 WBC 8.92 (4.50-11.00) K/uL RBC 3.92 L (4.00-5.20) m/uL Hgb 11.8 L (12.0-16.0) gm/dL Hct 36.1 (33.0-51.0) % MCV 92 (80-100) fL MCH 30 (26-34) pg MCHC 33 (32-36) gm/dL RDW Coeff of Dutch 15.5 (11.5-15.5) % Plt Count 341 (140-440) K/uL Neut % (Auto) 86.3 H (42.0-72.0) % Lymph % (Auto) 8.2 L (20-44) % [place] % (Auto) 4.7 (0.0-11.0) % Eos % (Auto) 0.3 (0.0-7.0) % Baso % (Auto) 0.2 (0.0-3.0) % Neut # (Auto) 7.70 H (1.7-7.0) K/uL Lymph # (Auto) 0.70 L (0.90-2.90) K/uL [place] # (Auto) 0.40 (0.00-0.90) K/UL Eos # (Auto) 0.03 (0.00-0.50) K/uL Baso # (Auto) 0.02 (0.00-0.30) K/uL Abs Immat Gran (auto) 0.03 (0.00-0.30) K/uL Imm/Tot Granulo (auto) 0.3 % INR 1.38 H (0.91-1.10) Sodium 134 L (135-149) mmol/L Potassium 2.9 L* (3.6-5.1) mmol/L Chloride 94 L (96-114) mmol/L Carbon Dioxide 26 (20-32) mmol/L Anion Gap 14 (7-15) mEq/L BUN 24 (7-30) mg/dL Creatinine 1.7 H (0.5-1.5) mg/dL Estimated GFR 30 ml/min Glucose 136 H (60-115) mg/dL Lactate 1.2 (0.5-1.9) mmol/L Calcium 9.2 (8.4-10.6) mg/dL Total Bilirubin 0.8 (0.1-1.5) mg/dL Direct Bilirubin 0.8 H (0.0-0.5) mg/dL AST 45 H (12-35) U/L ALT 45 H (4-35) U/L Alkaline Phosphatase 91 (40-150) U/L Troponin I 0.05 H (0.01-0.04) ng/mL C-Reactive Protein 11.5 H (0.5-1.0) mg/dL NT-Pro-B Natriuret Pep 36637 pg/mL Total Protein 8.0 (6.0-8.3) g/dL Albumin 4.2 (3.3-5.0) g/dL Urine Color (Yellow) Urine Appearance (Clear) Urine pH (5.0-8.5) Ur Specific [place] (1.000-1.030) Urine Protein (Negative) Urine Glucose (UA) (Negative) Urine Ketones (Negative) Urine Blood (Negative) Urine Nitrite (Negative) Urine Bilirubin (Negative) Urine Urobilinogen (0.2-1.0) Ur Leukocyte Esterase (Negative) Urine RBC (0-2) Urine WBC (0-5) Ur Squamous Epith Cells (None-Few) Amorphous Sediment (None) Urine Bacteria (None) Fine Granular Casts (None) SARS-CoV-2 (PCR) Negative SARS-CoV-2 (Negative) Influenza Type A (PCR) Negative PCR FLU A (Negative) Influenza Type B (PCR) Negative PCR FLU B (Negative) RSV (PCR) Negative PCR RSV (Negative) Lab Acknowledgement Test Added 06/13/24 Range/Units 17:09 WBC (4.50-11.00) K/uL RBC (4.00-5.20) m/uL Hgb (12.0-16.0) gm/dL Hct (33.0-51.0) % MCV (80-100) fL MCH (26-34) pg MCHC (32-36) gm/dL RDW Coeff of [place] (11.5-15.5) % Plt Count (140-440) K/uL Neut % (Auto) (42.0-72.0) % Lymph % (Auto) (20-44) % [place] % (Auto) (0.0-11.0) % Eos % (Auto) (0.0-7.0) % Baso % (Auto) (0.0-3.0) % Neut # (Auto) (1.7-7.0) K/uL Lymph # (Auto) (0.90-2.90) K/uL [place] # (Auto) (0.00-0.90) K/UL Eos # (Auto) (0.00-0.50) K/uL Baso # (Auto) (0.00-0.30) K/uL Abs Immat Gran (auto) (0.00-0.30) K/uL Imm/Tot Granulo (auto) % INR (0.91-1.10) Sodium (135-149) mmol/L Potassium (3.6-5.1) mmol/L Chloride (96-114) mmol/L Carbon Dioxide (20-32) mmol/L Anion Gap (7-15) mEq/L BUN (7-30) mg/dL Creatinine (0.5-1.5) mg/dL Estimated GFR ml/min Glucose (60-115) mg/dL Lactate (0.5-1.9) mmol/L Calcium (8.4-10.6) mg/dL Total Bilirubin (0.1-1.5) mg/dL Direct Bilirubin (0.0-0.5) mg/dL AST (12-35) U/L ALT (4-35) U/L Alkaline Phosphatase (40-150) U/L Troponin I (0.01-0.04) ng/mL C-Reactive Protein (0.5-1.0) mg/dL NT-Pro-B Natriuret Pep pg/mL Total Protein (6.0-8.3) g/dL Albumin (3.3-5.0) g/dL Urine Color Yellow (Yellow) Urine Appearance Turbid A (Clear) Urine pH 5.5 (5.0-8.5) Ur Specific [place] 1.020 (1.000-1.030) Urine Protein 3+ A (Negative) Urine Glucose (UA) Negative (Negative) Urine Ketones Trace A (Negative) Urine Blood 1+ A (Negative) Urine Nitrite Negative (Negative) Urine Bilirubin 1+ A (Negative) Urine Urobilinogen 0.2 (0.2-1.0) Ur Leukocyte Esterase Negative (Negative) Urine RBC 2-5 A (0-2) Urine WBC 2-5 (0-5) Ur Squamous Epith Cells Few (None-Few) Amorphous Sediment Few A (None) Urine Bacteria Few A (None) Fine Granular Casts Few A (None) SARS-CoV-2 (PCR) (Negative) Influenza Type A (PCR) (Negative) Influenza Type B (PCR) (Negative) RSV (PCR) (Negative) Lab Acknowledgement ECG Data Attestation: I personally reviewed and interpreted this ECG as follows: (Sinus tachycardia. Rate of 109. Looks similar to prior however lower amplitude T-waves) Discharge Plan Discharge Clinical Impression: Fever Condition: Stable Prescriptions: No Action acetaminophen 650 mg tablet extended release 650 mg PO .1-2X/Day amlodipine 2.5 mg tablet 7.5 mg PO QDAY apixaban 2.5 mg tablet 2.5 mg feeding tube BID buprenorphine 15 mcg/hour patch weekly 1 patch transdermal Q7D hydromorphone 2 mg tablet 2 mg PO Q4-6H PRN metoprolol succinate 25 mg tablet extended release 24 hr 12.5 mg PO QDAY pantoprazole 40 mg tablet,delayed release (DR/EC) 40 mg PO QDAY rosuvastatin 5 mg tablet 2.5 mg PO QDAY Follow Up/Referrals: Erickson Vinson MD [Primary Care Provider] -
[2024-06-13 14:33] LABS: Basophils Absolute Auto 0.02 K/uL (0.00-0.30); Basophils Percent Auto 0.2 % (0.0-3.0); Eosinophils Absolute Auto 0.03 K/uL (0.00-0.50); Eosinophils Percent Auto 0.3 % (0.0-7.0); Hematocrit 36.1 % (33.0-51.0); Hemoglobin* 11.8 gm/dL (12.0-16.0); Immature Granulocytes Abs Auto 0.03 K/uL (0.00-0.30); Immature Granulocytes Pct Auto 0.3 %; Lymphocytes Percent Auto 8.2 % (20-44); Mean Corpuscular HGB Conc 33 gm/dL (32-36); Mean Corpuscular Hemoglobin 30 pg (26-34); Mean Corpuscular Volume 92 fL (80-100); Monocytes Percent Auto 4.7 % (0.0-11.0); Neutrophils Percent Auto 86.3 % (42.0-72.0); Platelet Count* 341 K/uL (140-440); RDW Coefficient of Variation % 15.5 % (11.5-15.5); Red Blood Count 3.92 m/uL (4.00-5.20); White Blood Count* 8.92 K/uL (4.50-11.00)
[2024-06-13 14:38] LABS: Lactate* 1.2 mmol/L (0.5-1.9)
[2024-06-13 14:39] LABS: Albumin* 4.2 g/dL (3.3-5.0); Chloride* 94 mmol/L (96-114); Slide Review Reflex No; Sodium* 134 mmol/L (135-149)
[2024-06-13 14:42] LABS: Alkaline Phosphatase* 91 U/L (40-150); Anion Gap 14 mEq/L (7-15); Aspartate Amino Transferase* 45 U/L (12-35); Bilirubin Direct* 0.8 mg/dL (0.0-0.5); Bilirubin Total* 0.8 mg/dL (0.1-1.5); Blood Urea Nitrogen* 24 mg/dL (7-30); Carbon Dioxide* 26 mmol/L (20-32); Creatinine* 1.7 mg/dL (0.5-1.5); Estimated Glomerular Filt Rate 30 ml/min; INR 1.38 (0.91-1.10); Prothrombin Time 17.9 Seconds
[2024-06-13 14:43] LABS: Alanine Aminotransferase* 45 U/L (4-35); Calcium* 9.2 mg/dL (8.4-10.6); Glucose* 136 mg/dL (60-115)
[2024-06-13 14:47] LABS: Potassium* 2.9 mmol/L (3.6-5.1)
[2024-06-13 14:55] LABS: Troponin I* 0.05 ng/mL (0.01-0.04)
[2024-06-13 15:02] LABS: C Reactive Protein* 11.5 mg/dL (0.5-1.0)
[2024-06-13 15:52] LABS: PCR FLU A Negative PCR FLU A (Negative); PCR FLU B Negative PCR FLU B (Negative); PCR RSV Negative PCR RSV (Negative); SARS PCR* Negative SARS-CoV-2 (Negative)
[2024-06-13] MEDS: 0.9 % SODIUM CHLORIDE 500 ML 500 ML IV (16:01)
[2024-06-13] MEDS: ACETAMINOPHEN 500 MG TABLET 1000 MG PO (16:08)
[2024-06-13 16:38] LABS: NT Pro B Type NatriureticPept* 12900 pg/mL
[2024-06-13] MEDS: HYDROmorphone 0.5 mg/0.5 ml inj IVP (16:40)
[2024-06-13 17:14] LABS: Appearance Urine Turbid (Clear); Bilirubin Urine 1+ (Negative); Blood Urine 1+ (Negative); Color Urine Yellow (Yellow); Glucose Urine Negative (Negative); Ketones Urine Trace (Negative); Leukocyte Esterase Urine Negative (Negative); Nitrite Urine Negative (Negative); Protein Urine 3+ (Negative); Urobilinogen Urine 0.2 (0.2-1.0); pH Urine 5.5 (5.0-8.5)
[2024-06-13 17:28] LABS: Amorphous Sediment Urine Few; Bacteria Urine Few; Squamous Epithelial Cell Urine Few (None-Few)
[2024-06-13 17:29] LABS: Fine Granular Casts Urine Few
[2024-06-13] MEDS: PIPERACILLIN/TAZOBACTAM 3.375 GM in 0.9 % SODIUM CHLORIDE Mini-bag 100 ML IVPB (17:47)
--- OUTSIDE RECORDS SUMMARY | 2024-06-13 21:21 | XMS_ITS | Clinical Summary ---
Author Organization [facility] Address [address] [place] [address] Care Team Providers Care Commercial Lines Manager Name Role Phone Erickson Vinson MD [...] Patient taking differently:1 mg OralDAILY AFTERNOON, Informant: Long Term CHINO, Reported on 06/25/2023 pantoprazole (PROTONIX) 40 [...] (06/26/2023): Added automatically from request for surgery [id number] Subacute bacterial endocarditis 11/30/2021 PAF (paroxysmal atrial [...] Department Care Team Description 04/06/2024 2:18 PM SKI BINDING FITTER AND REPAIRER - 04/06/2024 9:20 PM SKI BINDING FITTER AND REPAIRER Emergency [facility] [address] [place] [address] Tiffanie Chris PA Haug, Yousuf Garner MD [...] on file Legal Sex Female 6:20 AM SKI BINDING FITTER AND REPAIRER Gender Identity Not on file Sexual Orientation Not on file Obstetrics History Last Filed Vital Signs Vital Sign Reading Time Taken Comments Blood Pressure 166/79 04/06/2024 8:45 PM SKI BINDING FITTER AND REPAIRER Pulse 71 04/06/2024 8:45 PM SKI BINDING FITTER AND REPAIRER Temperature 36 C (96.8 F) 04/06/2024 12:28 PM SKI BINDING FITTER AND REPAIRER Respiratory Rate 18 04/06/2024 12:28 PM SKI BINDING FITTER AND REPAIRER Oxygen Saturation 97% 04/06/2024 8:45 PM SKI BINDING FITTER AND REPAIRER Inhaled Oxygen Concentration - - Weight 67.1 kg (148 lb) 04/06/2024 2:32 PM SKI BINDING FITTER AND REPAIRER Height 154.9 cm (5' 1) 04/06/2024 2:32 PM SKI BINDING FITTER AND REPAIRER Body Mass Index 27.96 04/06/2024 2:32 PM SKI BINDING FITTER AND REPAIRER Plan of Treatment Health Maintenance Due Date [...] 1 VIEW PORTABLE STAT 04/06/2024 4:44 PM SKI BINDING FITTER AND REPAIRER EXTRA TUBE GOLD/SST Today 04/06/2024 4 :26 PM SKI BINDING FITTER AND REPAIRER EXTRA TUBE LAVENDER Today 04/06/2024 4 :26 PM SKI BINDING FITTER AND REPAIRER BASIC METABOLIC PANEL STAT 04/06/2024 4:26 PM SKI BINDING FITTER AND REPAIRER CBC W PLT NO DIFF STAT 04/06/2024 3:0 7 PM SKI BINDING FITTER AND REPAIRER SCAN-BONE DENSITOMETRY DEXA 12/02/2018 12:00 AM CDT from Last 3 Months or Most Recently Relevant to Health Maintenance Results * XR CHEST 1 VIEW PORTABLE (04/06/2024 4:44 PM SKI BINDING FITTER AND REPAIRER) Anatomical Region Laterality Modality HEART, THORAX, CHEST Computed Ra diography 04/06/2024 4:44 PM SKI BINDING FITTER AND REPAIRER Impressions 04/06/2024 5:44 PM SKI BINDING FITTER AND REPAIRER Right IJ catheter tip terminates in the right atrium. Cardiac silhouette and mediastinal contours are unchanged. Mild pulmonary edema. No focal consolidation, pleural effusion, or pneumothorax. Narrative 04/06/2024 5:44 PM SKI BINDING FITTER AND REPAIRER For Patients: As a result of the Cures Act, medical imaging exams and procedure reports are released immediately into your electronic medical record. You may view this report before your referring provider. If you have questions, please contact your health care provider. EXAM: XR CHEST 1 VIEW PORTABLE LOCATION: [facility] MEDICAL IMAGING DATE: 04/06/2024 INDICATION: * Permacath [...] EXAM: XR CHEST 1 VIEW PORTABLE LOCATION: [facility] MEDICAL IMAGING DATE: 04/06/2024 INDICATION: * Permacath placement for dialysis COMPARISON: 06/25/23 xray, 06/04/23 xray IMPRESSION: Right IJ catheter tip terminates in the right atrium. Cardiac silhouetteand mediastinal contours are unchanged. Mild pulmonary edema. No focalconsolidation, pleural effusion, or pneumothorax. Tiffanie LOVELL GENERAL IMAGING Final Resul t * EXTRA TUBE LAVENDER (04/06/2024 4:26 PM SKI BINDING FITTER AND REPAIRER) Blood BLOOD SPECIMEN / Unknown Non-Lab Venipuncture / Unknown 04/06/2024 4:26 PM SKI BINDING FITTER AND REPAIRER 04/06/2024 4:32 PM SKI BINDING FITTER AND REPAIRER us Doctor Unknown LABORATORY Final Result [facility] SENDOUT INTERNAL ZIP [id number] [address] [place] [address] * EXTRA TUBE GOLD/SST (04/06/2024 4:26 PM SKI BINDING FITTER AND REPAIRER) Blood BLOOD SPECIMEN / Unknown Non-Lab Venipuncture / Unknown 04/06/2024 4:26 PM SKI BINDING FITTER AND REPAIRER 04/06/2024 4:32 PM SKI BINDING FITTER AND REPAIRER us Doctor Unknown LABORATORY Final Result [facility] SENDOUT INTERNAL ZIP [id number] [address] [place] [address] * (ABNORMAL) BASIC METABOLIC PANEL (04/06/2024 4:26 PM SKI BINDING FITTER AND REPAIRER) SODIUM 133(L) 136 - 145 mmol/L 04/06/2024 4:55 PM [facility] POTASSIUM 4.0 3.5 - 5.1 mmol/L 04/06/2024 4:55 PM [facility] CHLORIDE 94(L) 98 - 107 mmol/L 04/06/2024 4:55 PM [facility] CO2,TOTAL 25 22 - 29 mmol/L 04/06/2024 4:55 PM [facility] ANION GAP 14 5 - 18 04/06/2024 4:55 PM [facility] GLUCOSE 89 70 - 99 mg/dL 04/06/2024 4:55 PM [facility] CALCIUM 9.5 8.8 - 10.4 mg/dL 04/06/2024 4:55 PM [facility] Comment: Reference ranges for this test were updated on 02/12/2024 to reflect our healthy population more accurately. Reference range changes are not retroactively applied to results, but previous results using the same methodology can be interpreted in the context of the new reference range. BUN 79(H) 8 - 23 mg/dL 04/06/2024 4:55 PM [facility] CREATININE 3.83(H) 0.50 - 0.90 mg/dL 04/06/2024 4:55 PM [facility] BUN/CREAT RATIO 21(H) 10 - 20 4:55 PM [facility] eGFR 11(L) >90 mL/min/1. 73m2 04/06/2024 4:55 PM [facility] Comment:As of 2021, eG FR is calculated by the CKD-EPI creatinine equation without race adjustment. eGFR can be influenced by muscle mass, exercise, and diet. The reported eGFR is an estimation only and is only applicable if the renal function is stable. Blood BLOOD SPECIMEN / Unknown Non-Lab Venipuncture / Unknown 04/06/2024 4:26 PM SKI BINDING FITTER AND REPAIRER 04/06/2024 4:31 PM SKI BINDING FITTER AND REPAIRER us Tiffanie LOVELL CHEMISTRY Final Resul t [facility] SENDOUT INTERNAL ZIP [phone] [place] [id number] * (ABNORMAL) CBC W PLT NO DIFF (04/06/2024 3:07 PM SKI BINDING FITTER AND REPAIRER) WHITE BLOOD COUNT 4.9 4.5 - 11.0 thou/cu mm 04/06/2024 3:23 PM [facility] RED BLOOD COUNT 4.06 4.00 - 5.20 mil/cu mm 04/06/2024 3:23 PM [facility] HEMOGLOBIN 12.9 12.0 - 16.0 g/dL 04/06/2024 3:23 PM [facility] HEMATOCRIT 37.9 33.0 - 51.0 % 04/06/2024 3:23 PM [facility] MCV 93 80 - 100 fL 04/06/2024 3:23 PM [facility] MCH 31.8 26.0 - 34.0 pg 04/06/2024 3:23 PM [facility] MCHC 34.0 32.0 - 36.0 g/dL 04/06/2024 3:23 PM [facility] RDW 14.9 11.5 - 15.5 % 04/06/2024 3:23 PM [facility] PLATELET COUNT 170 140 - 440 thou/cu mm 04/06/2024 3:23 PM [facility] MPV 11.1(H) 6.5 - 11.0 fL 04/06/2024 3:23 PM [facility] NRBC 0.0 % 04/06/2024 3:23 PM SKI BINDING FITTER AND REPAIRER [facility] ABS NRBC 0.0 thou /cu mm 04/06/2024 3:23 PM SKI BINDING FITTER AND REPAIRER [facility] Blood BLOOD SPECIMEN / Unknown Non-Lab Venipuncture / Unknown 04/06/2024 3:07 PM SKI BINDING FITTER AND REPAIRER 04/06/2024 3:12 PM SKI BINDING FITTER AND REPAIRER Narrative [facility] - 04/06/2024 3:23 PM SKI BINDING FITTER AND REPAIRER RN to order if patient presents with anterior chest pain, consistent with angina. us Tiffanie LOVELL HEMATOLOGY Final Resul t [facility] SENDOUT INTERNAL ZIP [phone] [place] [address] * SCAN-BONE DENSITOMETRY DEXA (12/02/2018 12:00 AM CDT) Anatomical Region Laterality Modality Other us Scanner OTHER Final Result from Last 3 Months or Most Recently Relevant to Health Maintenance Insurance MEDICARE PART A HB ONLY [facility] Advance Directives Documents on File Type Date Recorded Patient Hand Iii Cutter Dayron ARCINIEGA 12/01/2021 * Full Code (Latest [...] Comments Code Status Discussion: Discussed Care Teams Commercial Lines Manager Relationship Specialty Start Date End Date Erickson Vinson MD [address] [place] [id number] PCP - General Family Practice 02/01/23
--- OUTSIDE RECORDS SUMMARY | 2024-06-13 21:21 | XMS_ITS | Clinical Summary ---
Author Organization [facility] Address [address] [place] [id number] Care Team Providers Care Reduction Plant Supervisor Name Role Phone Eusebia Whitaker MD Primary Care Provider [phone] Allergies No known active allergies Medications carvedilol [...] of Treatment Not on file Care Teams Reduction Plant Supervisor Relationship Specialty Start Date End Date Eusebia Whitaker MD [facility] [address] [place] [address] PCP - General Family Practice 09/25/19
--- OUTSIDE RECORDS SUMMARY | 2024-06-13 21:21 | XMS_ITS | Clinical Summary ---
Author Organization [facility] Address [address] [place] [address] Phone Care Team Providers Care Acls Specialist Name Role Phone Eusebia Whitaker MD Primary Care Provider [phone] Allergies Active Allergy Reactions Criticality Noted Date [...] 3 (moderate) 02/07 Proteinuria 02/07/2019 Anemia 02/07/2019 terminal clerk current use of non-steroidal anti-infl ammatories 02/07/2019 [...] 06/07/2008 Influenza Vaccine (#1) 2023 Care Teams Acls Specialist Relationship Specialty Start Date End Date Schegabrielle, Eusebia, MD [address] [place] [address] PCP - General Family Medicine 11/24/19
--- NOTE | 2024-06-14 00:42 | ED.GENADULT ---
HPI - General Adult General Date Seen: 06/13/24 Chief complaint: Weakness Stated complaint: Weakness Time Seen by Provider: 06/13/24 13:33 History of Present Illness HPI narrative: Patient signed out to Dr. Connors by Dr. Hollis at shift change. 79-year-old female with a complex past medical history. She is sent to the ER today with fever and some mild altered mental status after dialysis run this afternoon. She is undergoing workup for fever without any clear source yet. Chest x-ray negative. She does have a 2 to three-week history of some cough, but had not had any fever until today. Daughter reports she may have had some mild shaking yesterday but did not have not objectively measured fever. Urinalysis is negative. Blood culture is pending. Inflammatory markers are generally reassuring. No clear source for fever on her skin exam such as lower extremity cellulitis or skin abscess. He has started IV antibiotics for possible sepsis. Dr. Hollis is ordered a CT scan of her chest/abdomen/pelvis to look for source of fever. I will follow-up on the results. CT scan of her chest/abdomen pelvis, resulted and showed no clear source for fever. I recheck the patient. She remains hemodynamically stable. Blood pressure is in the range of 160/90. Pulse in the 90s. Temperature is down to about 98.5 I reviewed the patient's medical record. She does have a history of endocarditis. When I discussed this with the patient's daughter it sounds like she did have endocarditis in the past with significant complications. Patient was sleeping. She did not arouse to voice but did arouse to shoulder shrug. Ultimately I was able to have a conversation with the patient's daughter, and with the patient. My recommendation, and the daughter agrees, would be for her to be admitted to the hospital for IV antibiotics pending the results of her blood cultures given her history of endocarditis. I did contact our hospitalist to see if he would potentially admit this patient for obvious your in [place] since it is closer to home for the patient and her daughter. She cannot be admitted here in [place], because she requires dialysis and likely would require dialysis on Sunday before all of her blood cultures are definitively resulted For her part, the patient says she wants to discharge home to her care facility at [facility]. Patient understands the risks of developing sepsis and potential complications of that. Daughter certainly understands the risks. The patient's daughter and myself agree that we would like her to be admitted. However the patient does agrees and at this point she does have medical decision-making capacity and can make her own decisions Therefore, we will be forced to let her discharge home to [facility] precautions for return to the ER with any recurrent fever, any new confusion or weakness or any other problems. Daughter would like her, if possible, to be transported directly to the ER at [facility], in [place]. Her daughter understands that the patient cannot be hospitalized here at the hospital in [place]. Related Data Home Medications ?Medication ?Instructions ?Recorded ?Confirmed acetaminophen 650 mg 650 mg PO .1-2X/Day 11/09/21 03/18/24 tablet,extended release amlodipine 2.5 mg tablet 7.5 mg PO QDAY 03/18/24 03/18/24 apixaban 2.5 mg tablet 2.5 mg feeding tube BID 03/18/24 03/18/24 buprenorphine 15 mcg/hour weekly 1 patch transdermal Q7D 03/18/24 03/18/24 transdermal patch hydromorphone 2 mg tablet 2 mg PO Q4-6H PRN 03/18/24 03/18/24 metoprolol succinate 25 mg 12.5 mg PO QDAY 03/18/24 03/18/24 tablet,extended release 24 hr pantoprazole 40 mg tablet,delayed 40 mg PO QDAY 03/18/24 03/18/24 release rosuvastatin 5 mg tablet 2.5 mg PO QDAY 03/18/24 03/18/24 Allergies Allergy/AdvReac Type Severity Reaction Status Date / Time simvastatin AdvReac Intermediate Joint Pain Verified 03/18/24 11:12 [facility] Medical History POLST (Physician Orders for Life-Sustaining Treatment) ?Z78.9 - Other specified health status (ICD-10) Stage 5 chronic kidney disease due to hypertension ?I12.0 - Hypertensive chronic kidney disease with stage 5 chronic kidney disease or end stage renal disease (ICD-10) ?N18.5 - Chronic kidney disease, stage 5 (ICD-10) Anemia ?D64.9 - Anemia, unspecified (ICD-10) Surgical History History of total hip arthroplasty ?Z96.649 - Presence of unspecified artificial hip joint (ICD-10) Status post hip replacement ?Z96.649 - Presence of unspecified artificial hip joint (ICD-10) History of dilation and curettage (12/08/10) ?Z98.890 - Other specified postprocedural states (ICD-10) History of colonoscopy ?Z98.890 - Other specified postprocedural states (ICD-10) History of carotid endarterectomy ?Z98.890 - Other specified postprocedural states (ICD-10) Social History Smoking Status: Never smoker Do you use any of these nicotine containing products: None Second hand tobacco smoke exposure: No How often do you have a drink containing alcohol: monthly or less How many standard drinks containing alcohol do you have on a typical day: 1 or 2 How often do you have six or more drinks on one occasion: Never AUDIT-C Alcohol total score: 1 Non-prescribed substance use: denies use Caffeine: No service: No Exam Const: Vital Signs, click to edit/add: Vital Signs - 24 hr 06/13/24 13:28 06/13/24 13:48 06/13/24 14:00 Temperature 102.1 F H Pulse Rate 108 H 108 H Pulse Rate [Pulse Oximeter] 105 H Respiratory Rate 28 H 16 21 Blood Pressure Blood Pressure [Ri ght Upper Arm] 221/91 H Pulse Oximetry 95 94 95 Oxygen Delivery Me thod Room Air Room Air 06/13/24 14:15 06/13/24 14:30 06/13/24 14:45 Temperature Pulse Rate Pulse Rate [Pulse Oximeter] Respiratory Rate 24 27 H 21 Blood Pressure Blood Pressure [Ri ght Upper Arm] Pulse Oximetry Oxygen Delivery Me thod 06/13/24 15:00 06/13/24 15:15 06/13/24 15:45 Temperature Pulse Rate 112 H Pulse Rate [Pulse Oximeter] Respiratory Rate 24 23 17 Blood Pressure Blood Pressure [Ri ght Upper Arm] Pulse Oximetry Oxygen Delivery Me thod Room Air 06/13/24 16:00 06/13/24 16:13 06/13/24 16:30 Temperature Pulse Rate 112 H 112 H Pulse Rate [Pulse Oximeter] Respiratory Rate 17 17 25 H Blood Pressure 189/105 H Blood Pressure [Ri ght Upper Arm] Pulse Oximetry Oxygen Delivery Nc thod Room Air 06/13/24 16:45 06/13/24 17:00 06/13/24 17:15 Temperature Pulse Rate 92 88 111 H Pulse Rate [Pulse Oximeter] Respiratory Rate 20 20 21 Blood Pressure Blood Pressure [Ri ght Upper Arm] Pulse Oximetry 97 98 94 Oxygen Delivery Nc thod 06/13/24 17:30 06/13/24 17:31 06/13/24 17:45 Temperature Pulse Rate 97 85 89 Pulse Rate [Pulse Oximeter] Respiratory Rate 21 13 22 Blood Pressure 151/72 H Blood Pressure [Ri ght Upper Arm] Pulse Oximetry 94 98 [facility] 06/13/24 18:00 06/13/24 18:15 06/13/24 18:30 Temperature Pulse Rate 84 80 88 Pulse Rate [Pulse Oximeter] Respiratory Rate 10 L 20 18 Blood Pressure Blood Pressure [Ri ght Upper Arm] Pulse Oximetry 95 98 97 [facility] 06/13/24 18:45 06/13/24 19:00 06/13/24 19:26 Temperature Pulse Rate 84 84 Pulse Rate [Pulse Oximeter] Respiratory Rate 18 18 12 Blood Pressure Blood Pressure [Ri ght Upper Arm] Pulse Oximetry 95 96 [facility] 06/13/24 19:28 06/13/24 19:30 06/13/24 19:45 Temperature Pulse Rate 84 83 81 Pulse Rate [Pulse Oximeter] Respiratory Rate 17 18 Blood Pressure 160/73 H Blood Pressure [Ri ght Upper Arm] Pulse Oximetry 96 97 99 [facility] 06/13/24 20:00 06/13/24 20:15 06/13/24 20:30 Temperature Pulse Rate 81 83 81 Pulse Rate [Pulse Oximeter] Respiratory Rate 22 Blood Pressure Blood Pressure [Ri ght Upper Arm] Pulse Oximetry 99 92 88 Oxygen Delivery Nc thod 06/13/24 20:45 06/13/24 21:00 06/13/24 21:15 Temperature Pulse Rate 88 90 89 Pulse Rate [Pulse Oximeter] Respiratory Rate 26 H Blood Pressure Blood Pressure [Ri ght Upper Arm] Pulse Oximetry 93 94 90 Oxygen Delivery Nc thod 06/13/24 21:30 06/13/24 21:35 06/13/24 21:45 Temperature 98.9 F Pulse Rate 97 84 Pulse Rate [Pulse Oximeter] Respiratory Rate 22 Blood Pressure Blood Pressure [Ri ght Upper Arm] Pulse Oximetry 98 98 Oxygen Delivery Me thod 06/13/24 21:59 06/13/24 22:30 Temperature 98.5 F Pulse Rate 85 Pulse Rate [Pulse Oximeter] 83 Respiratory Rate 26 H 26 H Blood Pressure 132/59 L Blood Pressure [Ri ght Upper Arm] 132/59 L Pulse Oximetry 95 Oxygen Delivery Me thod Room Air Room Air Course Vital Signs Vital signs: Initial Vital Signs Temperature 102.1 F H 06/13/24 13:28 Temperature Source Axillary 06/13/24 13:28 Pulse Rate 105 H 06/13/24 13:28 Respiratory Rate 28 H 06/13/24 13:28 Blood Pressure 221/91 H 06/13/24 13:28 Blood Pressure Mean 134 H 06/13/24 13:28 Blood Pressure Position Supine 06/13/24 13:28 Pulse Oximetry 95 06/13/24 13:28 Oxygen Delivery Method Room Air 06/13/24 13:28 Vital Signs Temperature 102.1 F H 06/13/24 13:28 Pulse Rate 105 H 06/13/24 13:28 Respiratory Rate 28 H 06/13/24 13:28 Blood Pressure 221/91 H 06/13/24 13:28 Pulse Oximetry 95 06/13/24 13:28 Oxygen Delivery Method Room Air 06/13/24 13:28 Temperature 98.5 F 06/13/24 22:30 Pulse Rate 83 06/13/24 22:30 Respiratory Rate 26 H 06/13/24 22:30 Blood Pressure 132/59 L 06/13/24 22:30 Pulse Oximetry 95 06/13/24 22:30 Oxygen Delivery Method Room Air 06/13/24 22:30 Medications Administered Medications: Discontinued Medications Generic Name Dose Route Start Last Admin Trade Name Jaylen PRN Reason Stop Dose Admin Acetaminophen 1,000 mg 06/13/24 14:32 06/13/24 16:08 Acetaminophen 500 Mg Tablet PO 06/13/24 14:33 1,000 mg ONCE ONE Administration Hydromorphone HCl 0.5 mg 06/13/24 16:34 06/13/24 16:40 Hydromorphone 0.5 Mg/0.5 Ml Inj IVP 06/13/24 16:35 0.5 mg ONCE ONE Administration Sodium Chloride 500 mls @ 500 mls/hr 06/13/24 14:22 06/13/24 22:01 0.9 % Sodium Chloride 500 Ml IV 06/13/24 15:21 Infused .Q1H ONE Infusion Piperacillin Sod/Tazobactam 100 mls @ 200 mls/hr 06/13/24 17:35 06/13/24 22:00 Sod 3.375 gm/ Sodium Chloride IVPB 06/13/24 17:36 Infused ONCE ONE Infusion Medical Decision Making Lab Data Labs: Lab Results 06/13/24 06/13/24 06/13/24 Range/Units 13:51 14:15 16:15 WBC 8.92 (4.50-11.00) K/uL RBC 3.92 L (4.00-5.20) m/uL Hgb 11.8 L (12.0-16.0) gm/dL Hct 36.1 (33.0-51.0) % MCV 92 (80-100) fL MCH 30 (26-34) pg MCHC 33 (32-36) gm/dL RDW Coeff of Dutch 15.5 (11.5-15.5) % Plt Count 341 (140-440) K/uL Neut % (Auto) 86.3 H (42.0-72.0) % Lymph % (Auto) 8.2 L (20-44) % Sunflower % (Auto) 4.7 (0.0-11.0) % Eos % (Auto) 0.3 (0.0-7.0) % Baso % (Auto) 0.2 (0.0-3.0) % Neut # (Auto) 7.70 H (1.7-7.0) K/uL Lymph # (Auto) 0.70 L (0.90-2.90) K/uL Sunflower # (Auto) 0.40 (0.00-0.90) K/UL Eos # (Auto) 0.03 (0.00-0.50) K/uL Baso # (Auto) 0.02 (0.00-0.30) K/uL Abs Immat Gran (auto) 0.03 (0.00-0.30) K/uL Imm/Tot Granulo (auto) 0.3 % INR 1.38 H (0.91-1.10) Sodium 134 L (135-149) mmol/L Potassium 2.9 L* (3.6-5.1) mmol/L Chloride 94 L (96-114) mmol/L Carbon Dioxide 26 (20-32) mmol/L Anion Gap 14 (7-15) mEq/L BUN 24 (7-30) mg/dL Creatinine 1.7 H (0.5-1.5) mg/dL Estimated GFR 30 ml/min Glucose 136 H (60-115) mg/dL Lactate 1.2 (0.5-1.9) mmol/L Calcium 9.2 (8.4-10.6) mg/dL Total Bilirubin 0.8 (0.1-1.5) mg/dL Direct Bilirubin 0.8 H (0.0-0.5) mg/dL AST 45 H (12-35) U/L ALT 45 H (4-35) U/L Alkaline Phosphatase 91 (40-150) U/L Troponin I 0.05 H (0.01-0.04) ng/mL C-Reactive Protein 11.5 H (0.5-1.0) mg/dL NT-Pro-B Natriuret Pep 08876 pg/mL Total Protein 8.0 (6.0-8.3) g/dL Albumin 4.2 (3.3-5.0) g/dL Urine Color (Yellow) Urine Appearance (Clear) Urine pH (5.0-8.5) Ur Specific Bogart (1.000-1.030) Urine Protein (Negative) Urine Glucose (UA) (Negative) Urine Ketones (Negative) Urine Blood (Negative) Urine Nitrite (Negative) Urine Bilirubin (Negative) Urine Urobilinogen (0.2-1.0) Ur Leukocyte Esterase (Negative) Urine RBC (0-2) Urine WBC (0-5) Ur Squamous Epith Cells (None-Few) Amorphous Sediment (None) Urine Bacteria (None) Fine Granular Casts (None) SARS-CoV-2 (PCR) Negative SARS-CoV-2 (Negative) Influenza Type A (PCR) Negative PCR FLU A (Negative) Influenza Type B (PCR) Negative PCR FLU B (Negative) RSV (PCR) Negative PCR RSV (Negative) Lab Acknowledgement Test Added 06/13/24 Range/Units 17:09 WBC (4.50-11.00) K/uL RBC (4.00-5.20) m/uL Hgb (12.0-16.0) gm/dL Hct (33.0-51.0) % MCV (80-100) fL MCH (26-34) pg MCHC (32-36) gm/dL RDW Coeff of Dutch (11.5-15.5) % Plt Count (140-440) K/uL Neut % (Auto) (42.0-72.0) % Lymph % (Auto) (20-44) % Sunflower % (Auto) (0.0-11.0) % Eos % (Auto) (0.0-7.0) % Baso % (Auto) (0.0-3.0) % Neut # (Auto) (1.7-7.0) K/uL Lymph # (Auto) (0.90-2.90) K/uL Sunflower # (Auto) (0.00-0.90) K/UL Eos # (Auto) (0.00-0.50) K/uL Baso # (Auto) (0.00-0.30) K/uL Abs Immat Gran (auto) (0.00-0.30) K/uL Imm/Tot Granulo (auto) % INR (0.91-1.10) Sodium (135-149) mmol/L Potassium (3.6-5.1) mmol/L Chloride (96-114) mmol/L Carbon Dioxide (20-32) mmol/L Anion Gap (7-15) mEq/L BUN (7-30) mg/dL Creatinine (0.5-1.5) mg/dL Estimated GFR ml/min Glucose (60-115) mg/dL Lactate (0.5-1.9) mmol/L Calcium (8.4-10.6) mg/dL Total Bilirubin (0.1-1.5) mg/dL Direct Bilirubin (0.0-0.5) mg/dL AST (12-35) U/L ALT (4-35) U/L Alkaline Phosphatase (40-150) U/L Troponin I (0.01-0.04) ng/mL C-Reactive Protein (0.5-1.0) mg/dL NT-Pro-B Natriuret Pep pg/mL Total Protein (6.0-8.3) g/dL Albumin (3.3-5.0) g/dL Urine Color Yellow (Yellow) Urine Appearance Turbid A (Clear) Urine pH 5.5 (5.0-8.5) Ur Specific Bogart 1.020 (1.000-1.030) Urine Protein 3+ A (Negative) Urine Glucose (UA) Negative (Negative) Urine Ketones Trace A (Negative) Urine Blood 1+ A (Negative) Urine Nitrite Negative (Negative) Urine Bilirubin 1+ A (Negative) Urine Urobilinogen 0.2 (0.2-1.0) Ur Leukocyte Esterase Negative (Negative) Urine RBC 2-5 A (0-2) Urine WBC 2-5 (0-5) Ur Squamous Epith Cells Few (None-Few) Amorphous Sediment Few A (None) Urine Bacteria Few A (None) Fine Granular Casts Few A (None) SARS-CoV-2 (PCR) (Negative) Influenza Type A (PCR) (Negative) Influenza Type B (PCR) (Negative) RSV (PCR) (Negative) Lab Acknowledgement Discharge Plan Discharge Clinical Impression: Fever Patient Disposition: Home, Self-Care Condition: Stable Instructions: Fever in Adults (ED) Additional Instructions: As we discussed, please come back to the ER or go directly to the [facility] [place] if you have any recurrent fever (temperature above 100.4 F or 38? C), or any other weakness, confusion, or any other concerns Please continue on your regular medications for now Prescriptions: No Action acetaminophen 650 mg tablet extended release 650 mg PO .1-2X/Day amlodipine 2.5 mg tablet 7.5 mg PO QDAY apixaban 2.5 mg tablet 2.5 mg feeding tube BID buprenorphine 15 mcg/hour patch weekly 1 patch transdermal Q7D hydromorphone 2 mg tablet 2 mg PO Q4-6H PRN metoprolol succinate 25 mg tablet extended release 24 hr 12.5 mg PO QDAY pantoprazole 40 mg tablet,delayed release (DR/EC) 40 mg PO QDAY rosuvastatin 5 mg tablet 2.5 mg PO QDAY Follow Up/Referrals: Erickson Vinson MD [Primary Care Provider] - Stand Alone Forms: Txt4 Info Instructions
== END 2024-06-13 22:36 | disposition home or self-care (01) ==
PROVIDERS: Family Medicine; Emergency Provider Emergency Medicine; PCP Family Medicine
DX: R50.9 Fever, unspecified (principal); R53.1 Weakness
CPT/HCPCS: 36415; 71045; 71250; 74176; 80048; 80076; 81001; 83605; 83880; 84484; 85025; 85610; 86140; 87040; 87086; 87631; 87800; 93005; 96365; 96366; 99283; 99284; 99285; A9270; J1171; J2543; J7030

== ENCOUNTER 2024-06-13 22:11 | Outpatient (CLI) | payer OTHER, SELFPAY | END 2024-06-13 22:12 | disposition home or self-care (01) | LOC: AMB 06-16 11:49 | PROVIDERS: PCP Family Medicine; Visit Provider Emergency Medicine | DX: R53.1 Weakness (principal) | CPT/HCPCS: A0425; A0428 ==

== ENCOUNTER 2024-06-14 09:24 | Outpatient (CLI) | payer OTHER, SELFPAY | END 2024-06-14 09:25 | disposition home or self-care (01) | LOC: AMB 06-16 13:05 | PROVIDERS: PCP Family Medicine; Visit Provider Student in an Organized Health Care Education/Training Program | DX: R53.1 Weakness (principal) | CPT/HCPCS: A0425; A0427 ==

== ENCOUNTER 2025-01-02 13:42 | Outpatient (CLI) | payer OTHER, SELFPAY | END 2025-01-02 13:43 | disposition home or self-care (01) | LOC: AMB 01-05 13:01 | PROVIDERS: Visit Provider Internal Medicine | DX: I10 Essential (primary) hypertension (principal); R41.0 Disorientation, unspecified; Z99.2 Dependence on renal dialysis | CPT/HCPCS: A0998 ==

== ENCOUNTER 2025-01-02 15:23 | Outpatient (REF) | payer OTHER, SELFPAY ==
--- OUTSIDE RECORDS SUMMARY | 2023-07-13 09:09 | XMS_ITS | Continuity of Care Document ---
Author Organization [facility] Address [address] [address] [place] [address] Phone Care Team Providers Care Advisor To Command In [employer] Name Role Phone Michael Park MD Unavailable Unavailable Procedures Procedure Date Init Hosp-da E&m Mod Severity 4 Ugi Endo; Dx W/wo Collec Specm 24 Init Hosp-da E&m Mod Severity 4 Ugi Endo; W/contrl Bleed Any M 24 Subsqt Hosp-da E&m Stable 15 M 24 Subsqt Hosp-da E&m Stable 15 M 24 Advance Directives Directive Yes / No Effective Date File Name No Information Encounters Encounter Description Practice Location Reason(s) For Visit Diagnoses Date Provider Providers Copied on Encounter [facility], [address] [address], [place], [place], [id number], [place] tel:[phone] [facility] No Information 4 Xavier Rodriguez. [address], [id number], [place]. tel:[phone] Init Hosp-da E&m Mod Severity [facility], [address] [address], [place], [place], [id number], [place] tel:[phone] [facility] No Information 4 [place]. [address], [id number], [place]. tel:[phone] Referring Provider: Erickson Godwin, [address], [place], [address]. tel:[phone] [facility], [address] [address], [place], [id number], [place] tel:[phone] [facility] Stephani-Aj s tear 4 Xavier Rodriguez. [address] [place] [address], [address], [id number], [place]. tel:[phone] Init Hosp-da E&m Mod Severity [facility], [address] [address], [place], [id number], [place] tel:[phone] [facility] No Information 4 Xavier Rodriguez. [address] [place] [address], [id number], [place]. tel:[phone] Referring Provider: Erickson Vinson MD F, [address] [place] [address], [place], [address]. tel:[phone] Family History Family Member Type Diagnosis Age At Onset No Information Payers Payer name Insurance type Covered constitution party ID Authoriza tion(s) No Information Social History Type Description Quantity Date Captured Comments Sex Female Smoking Status No Information Chief Complaint And Reason For Visit No Information Reason For Referral Reason For Referral No Information Plan Of Treatment Date Type Action Status Referral Ordered: EGD Appointment date/timeframe: 08/06/2023 ordered History Of Present Illness Encounter Date Complaint History Of Prese nt Illness No Information Functional Status Date Functional Assessmen t No Information Instructions Date Instruction Additional Infor mation No Information Assessments Type Assessment Date No Information Patient Care Teams Name Effective Dates (start - stop) Status Members No Information
[2025-01-02 16:30] LABS: PCR FLU A Negative PCR FLU A (Negative); PCR FLU B Negative PCR FLU B (Negative); PCR RSV Negative PCR RSV (Negative); SARS PCR* Negative SARS-CoV-2 (Negative)
--- OUTSIDE RECORDS SUMMARY | 2025-01-03 00:12 | XMS_ITS | Clinical Summary ---
Author Organization [facility] Address [address] [place] [id number] Care Team Providers Care Flat Sheet Maker Name Role Phone Eusebia Whitaker MD Primary Care Provider [phone] Allergies No known active allergies Medications carvedilol [...] of Treatment Not on file Care Teams Flat Sheet Maker Relationship Specialty Start Date End Date Eusebia Whitaker MD [facility] [address] [place] [id number] PCP - General Family Practice 09/25/19
--- OUTSIDE RECORDS SUMMARY | 2025-01-03 00:12 | XMS_ITS | Clinical Summary ---
Author Organization [facility] Address [address] [place] [id number] Care Team Providers Care Blast Furnace Supervisor Name Role Phone Erickson Vinson MD Primary Care Provider Lizeth hamm Allergies Active Allergy Reactions Criticality Noted Date Comments Simvastatin Dizziness 11/29/2017 Medications apixaban (ELIQUIS) 2.5 mg tabletIndications:p revent thromboembolism in chronic atrial fibrillation Take 1 Tablet (2.5 mg) by mouth 2 times daily. 0 11/29/19 22 Active amoxicillin (AMOXIL) 500 mg capsuleIndications: PROPHYLAXIS Take 1,000 mg by mouth once daily if needed (SBE prophylaxis). Take 30-60 min prior to any dental procedure for SBE prophylaxis 2 Capsule 05/02/19 23 Active ondansetron (ZOFRAN ODT) 4 mg disintegrating tabletIndications:n ausea Take 4 mg by mouth every 8 hours if needed. 06/20/19 23 Active metoprolol succinate (TOPROL XL) 25 mg Sustained-Release tabletIndications:h ypertension Take 12.5 mg by mouth once daily in the afternoon. 03/11/20 23 Active bisacodyL (DULCOLAX) 10 mg suppositoryIndicati ons:constipation Insert 10 mg rectally once daily if needed for Constipation. Active folic acid 1 mg tabletIndications:f olate deficiency Take 1 Tablet (1 mg) by mouth once daily. 03/05/20 24 Active Additional Information Patient taking differently:1 mg OralDAILY AFTERNOON, Indications: folate deficiency, Informant: Shelter MAR, Reported on 06/22/2024 pantoprazole (PROTONIX) 40 mg delayed-release tabletIndications:g astroesophageal reflux disease Take 1 Tablet (40 mg) by mouth two times daily before meals. 06/12/19 Active acetaminophen (TYLENOL EXTRA STRGTH) 500 mg tabletIndications:a rthritic pain,pain Take 1,000 mg by mouth three times daily. 06/01/19 Active amLODIPine (NORVASC) 2.5 mg tabletIndications:h ypertension Take 3 Tablets (7.5 mg) by mouth once daily. 07/04/19 Active Additional Information Patient taking differently:7.5 mg OralDAILY AFTERNOON, Indications: hypertension, Reported on 06/22/2024 rosuvastatin (CRESTOR) 5 mg tabletIndications:a therosclerotic cardiovascular disease Take 0.5 Tablets (2.5 mg) by mouth at bedtime. 07/04/19 Active polyethylene glycol (Miralax) 17 g per packet packetIndications:c onstipation Mix 17 g (1 Packet) in liquid then take by mouth once daily if needed for Constipation. 07/04/19 Active Senna 8.6 mg tabletIndications:c onstipation Take 2 Tablets (17.2 mg) by mouth 2 times daily if needed for Constipation. 07/04/19 Active acetaminophen (TYLENOL EXTRA STRGTH) 500 mg tabletIndications:p ain Take 1 Tablet (500 mg) by mouth every 6 hours if needed for Pain. Max acetaminophen dose: 4000mg in 24 hrs. 40 Tablet 04/06/20 Active buprenorphine 15 mcg/hr 15 mcg/hour transdermal patchIndications:se shanika chronic pain with opioid tolerance Apply 1 Patch on dry, clean, hairless skin once weekly. Active HYDROmorphone 2 mg tablet Take 2 mg by mouth every Sunday, Sunday and Sunday. Give one hour prior to dialysis Active mirtazapine (REMERON) 45 mg tabletIndications:f or sleeplessness and nerve pain Take 45 mg by mouth at bedtime. For sleeplessness, nerve pain, depression Active guaiFENesin (Mucinex) 600 mg Extended-Release tabletIndications:c ough Take 600 mg by mouth once daily in the morning. Active b complex-vitamin c-folic acid (NEPHRO-SIVA) 0.8 mg tabIndications:timothy min deficiency Take 1 Tablet by mouth once daily. Active ondansetron (ZOFRAN ODT) 4 mg disintegrating tabletIndications:n ausea Place 4 mg on the tongue every Sunday, Sunday and Sunday. Give for nausea AFTER dialysis - MWF @ 1600 Active guaiFENesin (ROBITUSSIN) (100 mg in 5 mL)Indications:coug h Take 400 mg by mouth every 4 hours if needed for Expectoration. Active medication order composer Butt cream #1 Apply to buttocks with saeed care topically every shift for skin care. Mix with nystatin cream and triamcinolone cream as 1:1 mixture Active HYDROmorphone 2 mg tabletIndications:C hronic pain syndrome Take 1 Tablet (2 mg) by mouth every 2 hours if needed for Pain. 10 Tablet 06/23/19 25 Active Active Problems Problem Noted Date Diagnosed Date Proteus mirabilis infection 06/14/2024 Bacteremia 06/14/2024 Wound infection 07/09/2023 PAD (peripheral artery disease) 07/09/2023 Chronic leg pain 07/09/2023 End-stage renal disease 06/26/2023 PEG (percutaneous endoscopic gastrostomy) status 06/26/2023 Diarrhea 06/26/2023 CVA (cerebral vascular accident) 06/26/2023 Open wound of left lower extremity 06/26/2023 Coagulopathy 06/04/2023 GIB (gastrointestinal bleeding) 06/04/2023 Hyponatremia 06/04/2023 ACP (advance care planning) 06/04/2023 Leg wound, left 06/04/2023 Cachexia 07/07/2022 Nephrosclerosis 06/14/2022 Non-ST elevation (NSTEMI) myocardial infarction 06/14/2022 Acquired thrombocytopenia 06/14/2022 Methicillin susceptible Staphylococcus aureus in fection 06/06/2022 Debility 06/06/2022 Stage 4 chronic kidney disease 05/19/2022 Overview (06/26/2023): Added automatically from request for surgery [id number] Subacute bacterial endocarditis 11/30/2021 PAF (paroxysmal atrial fibrillation) 11/26/2021 Staphylococcus aureus bacteremia 11/13/2021 ESRD on hemodialysis 11/12/2021 Sepsis 11/12/2021 Acute encephalopathy 11/12/2021 Elevated troponin 11/12/2021 Hyperparathyroidism due to renal insufficiency 1 Urinary tract infection 06/09/2020 Obstructive sleep apnea syndrome 04/28/2020 Chronic right heart failure 01/07/2020 Anemia of chronic renal failure 01/07/2020 Renal osteodystrophy 01/07/2020 Hypertensive urgency 12/06/2019 PAD (peripheral artery [...] or isolated from those around you? 0 06/21/2024 Financial Resource Strain Answer Date R ecorded Difficulty of Paying Living Expenses 3 06/21/2024 Difficulty of Paying Living Expenses Not on file 06/21/2024 Food Insecurity Answer Date Recorded Do you worry your food will run out before you are able to buy more? 1 06/21/2024 Transportation Needs Answer Date Record ed Does lack of transportation keep you from medica l appointments? 1 06/21/2024 Does lack of transportation keep you from work, meetings or getting things that you need? 1 06/21/2024 Housing Stability Answer Date Recorded What is your housing situation today? 1 06/21/2024 Interpersonal Safety Answer Date Record ed Are you being hit, kicked, p ushed or yelled at (see row info)? No 06/14/2024 Interpersonal Safety Abuse 12 - 18 Not on file 06/14/2024 Interpersonal Safety Ambulatory Vulnerability No t on file 06/14/2024 Utilities Answer Date Recorded Do you have trouble paying f or utilities (for example, heat, electricity, water, phone)? 1 06/21/2024 Comments No Sex and Gender Information Value Date Recorded Sex Assigned at Not on file Legal Sex Female 6:20 AM BILINGUAL SOCIAL WORKER Gender Identity Not on file Sexual Orientation Not on file Obstetrics History Last Filed Vital Signs Vital Sign Reading Time Taken Comments Blood Pressure 134/95 06/22/2024 1:05 PM CDT Pulse 86 06/22/2024 1:05 PM CDT Temperature 37.2 C (99 F) 06/22/2024 8:00 AM CDT Respiratory Rate 18 06/22/2024 5:51 AM CDT Oxygen Saturation 98% 06/22/2024 8:00 AM CDT Inhaled Oxygen Concentration - - Weight 82.8 kg (182 lb 9.6 oz) 06/20/2024 6:50 P M CDT Height 154.9 cm (5' 1) 06/14/2024 10:28 AM BILINGUAL SOCIAL WORKER Body Mass Index 34.5 06/14/2024 10:28 AM BILINGUAL SOCIAL WORKER Plan of Treatment Health Maintenance Due Date Last Done Comments Tetanus booster 06/07/1954 Depression screening for age 12+ 1955 Pneumococcal series for age 50+ (1 of 2 - PCV) 06/07/1962 Hepatitis B series for 19+ ( 1 of 3 - Risk Dialysis 4-dose series) 1963 Zoster (shingles) series for age 50+ (1 of 2) 06/07/1993 Medicare Wellness for age 65+ 06/07/2008 RSV vaccine for adults or (1 - 1-dose 75+ series) 06/07/2018 BMI (ht and wt on same day) for age 18+ 05/01/2024 05/01/2023, 05/09/2022, 05/02/2022, Additional history exists COVID-19 vaccine series ( season) 2024 01/30/2023, 01/16/2022, 01/20/2021 Influenza Vaccine (#1) 2024 DEXA/DXA scan for age 65+ Completed 12/02/2018 [...] Maintenance Insurance MEDICARE PART A HB ONLY [facility] Advance Directives Documents on File Type Date Recorded Patient Agency Sales Development Associate Expl anation POLST 12/01/2021 * Full Code (Latest Code Status on File) Date Activated Date Inactivated Comments 06/14/2024 2:15 PM 06/22/2024 3:29 PM Patient prese nts with POLST too Question Answer Comments Code Status Discussion: Reviewed Preferences * Full Code Date Activated Date Inactivated Comments 07/01/2023 3:59 [...] Question Answer Comments Code Status Discussion: Other Care Teams Blast Furnace Supervisor Relationship Specialty Start Date End Date Erickson Vinson MD [address] [place] [address] PCP - General Family Practice 02/01/23
== END 2025-01-02 15:24 | disposition home or self-care (01) ==
LOC: NPINS 15:23
PROVIDERS: Internal Medicine Gastroenterology; Visit Provider Nurse Practitioner Gerontology
DX: R05.9 Cough, unspecified (principal)
CPT/HCPCS: 87631

== ENCOUNTER 2025-01-14 13:41 | Outpatient (CLI) | payer OTHER, SELFPAY | END 2025-01-14 13:42 | disposition home or self-care (01) | PROVIDERS: Visit Provider Internal Medicine Nephrology | DX: I50.31 Acute diastolic (congestive) heart failure (principal); I51.7 Cardiomegaly; I07.1 Rheumatic tricuspid insufficiency; I34.0 Nonrheumatic mitral (valve) insufficiency; R55 Syncope and collapse; I12.0 Hypertensive chronic kidney disease with stage 5 chronic kidney disease or end stage renal disease; N18.5 Chronic kidney disease, stage 5 | CPT/HCPCS: 93306 ==

== ENCOUNTER 2025-02-01 09:22 | Outpatient (CLI) | payer MEDICARE, MEDICAID, SELFPAY | END 2025-02-01 09:23 | disposition home or self-care (01) | LOC: AMB 04-29 08:44 | PROVIDERS: Visit Provider Family Medicine | DX: R41.82 Altered mental status, unspecified (principal) | CPT/HCPCS: A0425; A0429 ==

== ENCOUNTER 2025-02-01 09:42 | Emergency (ER) | payer OTHER, SELFPAY ==
[2025-02-01] VITALS (20 sets, daily range): BP systolic 189–211; BP diastolic 76–116; PULSE 85–98; RESP 16–18; TEMP 37.2–37.7; O2SAT 93–100; BMI 40.7
--- OUTSIDE RECORDS SUMMARY | 2025-02-01 09:45 | XMS_ITS | Clinical Summary ---
Author Organization [facility] Address [address] [place] [address] Care Team Providers Care Second Facing Baster Name Role Phone Erickson Vinson MD Primary [...] mg OralDAILY AFTERNOON, Indications: folate deficiency, Informant: [facility], Reported on 06/22/2024 pantoprazole (PROTONIX) 40 [...] (06/26/2023): Added automatically from request for surgery [id number] Subacute bacterial endocarditis 11/30/2021 PAF (paroxysmal atrial [...] Encounters Date Type Department Care Team Description 01/14/2025 2:00 PM CDT Ancillary Procedure [facility] [address] [place] [address] from Last 3 Months Family History Medical [...] on file Legal 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 Gender Identity Not on file Sexual Orientation [...] 154.9 cm (5' 1) 06/14/2024 10:28 AM WOOD CUT ENGRAVER Body Mass Index 34.5 06/14/2024 10:28 AM WOOD CUT ENGRAVER Plan of Treatment Health Maintenance Due Date [...] Procedure Name Priority Date/Time Associated Diagnosis Comments ECHO TTE COMPLETE WO CONTRAST Routine 01/14/2025 2:51 PM CDT Acute diastolic heart failure (HC) SCAN-BONE DENSITOMETRY DEXA 12/02/2018 12:00 AM CDT from Last 3 Months or Most Recently Relevant to Health Maintenance Results * ECHO TTE COMPLETE WO CONTRAST (01/14/2025 2:51 PM CDT) AORTIC VALVE MEAN PG 5 mmHg EJECTION FRACTION 67 % PEAK TR VELOCITY 3.0 m/s LVEDD 4.4 cm Anatomical Region Laterality Modality Ultrasound 01/14/2025 2:11 PM CDT Narrative 01/14/2025 3:02 PM CDT ECHOCARDIOGRAM CYNTHIA BERRY : 1945 79 years Study Date: 01/14/2025 2:11:22 PM Gender: F BP: 134/95 mmHg Height: 157.00 cm BSA: 1.85 m Weight: 84.00 kg Tech: ULICES Referring MD: GREG WEEKS Site: [facility] Reading Location: Mobile OP Patient Location: Outpatient. Procedure: 2D, Color Doppler and Spectral Doppler. Indication for study: Diastolic heart disease Cardiac Rhythm: Normal sinus.Study quality: Fair. Imaging limitations: This study was subject to imaging limitations due to lying in a supine position, body habitus, a prominent lung artifact, being done upright in a wheelchair and transgastric difficulties. Final Impressions: 1. Normal left ventricular size, moderately increased wall thickness, normal global systolic function, calculated EF of 67 %. 2. Right ventricular cavity size is normal, global systolic RV function is normal. 3. Moderately enlarged left atrium. 4. The aortic valve is trileaflet, no stenosis and no regurgitation. 5. The mitral valve is MAC (posterior), trace mitral regurgitation. 6. Tricuspid valve is normal, trace tricuspid regurgitation. 7. No pericardial effusion. Chamber Sizes and Function Normal left ventricular size, moderately increased wall thickness, normal global systolic function, calculated EF of 67 %. No resting regional wall motion abnormality visualized. Left atrial size is moderately enlarged. Right ventricular cavity size is normal, global systolic RV function is normal. The right atrium is normal. Right atrial area is 12 cm . The pulmonary artery is of normal size and origin. The sinus of Valsalva is normal sized. The ascending aorta is normal sized. Valves, RV Pressures and Diastolic Function The aortic valve is trileaflet, no stenosis and no regurgitation. The mitral valve is MAC (posterior), trace mitral regurgitation. Normal diastolic function. The tricuspid valve is normal in structure, trace tricuspid regurgitation. The tricuspid regurgitant velocity is 3.0 m/s, the estimated right ventricular systolic pressure is 36 mmHg plus right atrial pressure. The pulmonic valve is normal. No pulmonary regurgitation. TTE images do not appear adequate for transcather intervention with patient supine. Masses, Effusion, Shunts There is no pericardial effusion. The inferior vena cava is not well visualized, respiratory size variation not well visualized. No left to right shunting was detected by limited color flow Doppler interrogation of the interatrial septum. MEASUREMENTS AND CALCULATIONS 2-D Measurements and LV Function: LVID (d) 4.4 cm Planimetered EF 67 % LVID (s) 2.7 cm LV FS% (2D) 39 % IVS (d) 1.4 cm LVOT diameter 2.1 cm LVPW (d) 1.5 cm HR 72 bpm Ao Sinus 3.2 cm LA Vol index 48 ml/m2 Ao Sinus ULN 3.8 cm * RA area 12 cm Asc Ao 3.5 cm RV Basal Diam 3.3 cm Asc Ao ULN 4.1 cm * RV Mid Diam 2.2 cm * Input age outside of range, reported values correspond to Age = 78 Diastology: Mitral Tissue Doppler E Peak 0.9 m/s e', Septum 0.07 m/s A Peak 0.9 m/s e', Lateral 0.11 m/s E/A 1.1 E/e' Average 10.30 DT 155 msec Aortic Valve: Vmax 1.5 m/s BRI (V) 2.54 cm VTI 0.39 m BRI (I) 2.44 cm LVOT V max 1.1 m/s Max PG 9 mmHg LVOT VTI 0.27 m Mean PG 5 mmHg SV 94 ml Dim Index 0.70 SV index 51 ml/m CO 6.8 l/min CI 3.7 l/min/m Mitral Valve: MVA 4.9 cm MV P 1/2 45 msec Tricuspid Valve and estimated PA pressures: TR Vmax 3.0 m/s TAPSE 1.8 cm TR maxG 36 mmHg . This study was interpreted by an [facility] accredited facility. CC: [facility] ([facility]) [facility]. Final Procedure Note [address], [facility] - 01/14/2025 ECHOCARDIOGRAM CYNTHIA BERRY : 1945 79 years Study Date: 01/14/2025 2:11:22 PM Gender: F BP: 134/95 mmHg Height: 157.00 cm BSA: 1.85 m Weight: 84.00 kg Tech: ULICES Referring MD: GREG WEEKS Site: [facility] Reading Location: Mobile OP Patient Location: Outpatient. Procedure: 2D, Color Doppler and Spectral Doppler. Indication for study: Diastolic heart disease Cardiac Rhythm: Normal sinus.Study quality: Fair. Imaging limitations: This study was subject to imaging limitations due tolying in a supine position, body habitus, a prominent lung artifact, beingdone upright in a wheelchair and transgastric difficulties. Final Impressions: 1. Normal left ventricular size, moderately increased wall thickness,normal global systolic function, calculated EF of 67 %. 2. Right ventricular cavity size is normal, global systolic RV functionis normal. 3. Moderately enlarged left atrium. 4. The aortic valve is trileaflet, no stenosis and no regurgitation. 5. The mitral valve is MAC (posterior), trace mitral regurgitation. 6. Tricuspid valve is normal, trace tricuspid regurgitation. 7. No pericardial effusion. Chamber Sizes and Function Normal left ventricular size, moderately increased wall thickness, normalglobal systolic function, calculated EF of 67 %. No resting regional wallmotion abnormality visualized. Left atrial size is moderately enlarged.Right ventricular cavity size is normal, global systolic RV function isnormal. The right atrium is normal. Right atrial area is 12 cm . Thepulmonary artery is of normal size and origin. The sinus of Valsalva isnormal sized. The ascending aorta is normal sized. Valves, RV Pressures and Diastolic Function The aortic valve is trileaflet, no stenosis and no regurgitation. Themitral valve is MAC (posterior), trace mitral regurgitation. Normaldiastolic function. The tricuspid valve is normal in structure, tracetricuspid regurgitation. The tricuspid regurgitant velocity is 3.0 m/s,the estimated right ventricular systolic pressure is 36 mmHg plus rightatrial pressure. The pulmonic valve is normal. No pulmonary regurgitation.TTE images do not appear adequate for transcather intervention withpatient supine. Masses, Effusion, Shunts There is no pericardial effusion. The inferior vena cava is not wellvisualized, respiratory size variation not well visualized. No left toright shunting was detected by limited color flow Doppler interrogation ofthe interatrial septum. MEASUREMENTS AND CALCULATIONS 2-D Measurements and LV Function: LVID (d) 4.4 cm Planimetered EF 67% LVID (s) 2.7 cm LV FS% (2D) 39% IVS (d) 1.4 cm LVOT diameter2.1 cm LVPW (d) 1.5 cm HR 72bpm Ao Sinus 3.2 cm LA Vol index 48ml/m2 Ao Sinus ULN 3.8 cm * RA area 12cm Asc Ao 3.5 cm RV Basal Diam3.3 cm Asc Ao ULN 4.1 cm * RV Mid Diam2.2 cm * Input age outside of range, reported values correspond to Age = 78 Diastology: Mitral Tissue Doppler E Peak 0.9 m/s e', Septum 0.07 m/s A Peak 0.9 m/s e', Lateral 0.11 m/s E/A 1.1 E/e' Average 10.30 DT 155 msec Aortic Valve: Vmax 1.5 m/s BRI (V) 2.54 cm VTI 0.39 m BRI (I) 2.44 cm LVOT V max 1.1 m/s Max PG 9 mmHg LVOT VTI 0.27 m Mean PG 5 mmHg SV 94 ml Dim Index 0.70 SV index 51 ml/m CO 6.8 l/min CI 3.7 l/min/m Mitral Valve: MVA 4.9 cm MV P 1/2 45 msec Tricuspid Valve and estimated PA pressures: TR Vmax 3.0 m/s TAPSE 1.8 cm TR maxG 36 mmHg . This study was interpreted by an [facility] accredited facility. CC: [facility] ([facility]) [facility]. Final us Greg Weeks DO ECHO ORD Final Resul t * SCAN-BONE DENSITOMETRY DEXA (12/02/2018 12:00 AM CDT) Anatomical Region Laterality Modality Other us Scanner OTHER Final Result from Last 3 Months or Most Recently Relevant to Health Maintenance Insurance MEDICARE PART A HB ONLY [facility] Advance Directives Documents on File Type Date Recorded Patient Regulatory Technician Expl anation POLST 12/01/2021 * Full Code [...] Comments Code Status Discussion: Other Care Teams Second Facing Baster Relationship Specialty Start Date End Date Erickson Vinson MD [address] [place] [address] PCP - General Family Practice 02/01/23
--- OUTSIDE RECORDS SUMMARY | 2025-02-01 09:45 | XMS_ITS | Clinical Summary ---
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..] / Low and Medium Risk (1 of 2 - PCV) 06/07/1993 Influenza Vaccine (#1) 2024 Insurance PM [employer] INSURANCE on file Care Teams Front Desk Attendant Relationship Specialty Start Date End Date Eusebia Whitaker MD [address] [address] PCP - General Family Medicine 11/24/19
--- OUTSIDE RECORDS SUMMARY | 2025-02-01 09:45 | XMS_ITS | Clinical Summary ---
Author Organization [facility] Address [address] [place] [address] Care Team Providers Care Special Weapons And Tactics Officer Name Role Phone Eusebia Whitaker MD Primary Care Provider [phone] Allergies No known active allergies Medications carvedilol [...] of Treatment Not on file Care Teams Special Weapons And Tactics Officer Relationship Specialty Start Date End Date Eusebia Whitaker MD [facility] [address] [place] [address] PCP - General Family Practice 09/25/19
--- NOTE | 2025-02-01 10:22 | XR_ITS ---
Patient: CYNTHIA HOLBROOK Facility:?[facility] Patient ID:?[id number] Site Patient ID:?[id number] :?1945 Study:?XRay-Chest CXR-02/01/2025 11:21:25 AM Ordering Physician:rebecca Final Report: INDICATION: Fever. COMPARISON: None available. TECHNIQUE: Single AP view of the chest. FINDINGS: Medical Devices: In situated jugular dual-lumen central venous catheter with its tip overlying the right atrium, unchanged. Lung Volumes: Shallow inspiration. No significant atelectasis. Lungs: Low lung volumes accentuate the pulmonary vascular markings. No focal consolidation to indicate bronchopneumonia as the cause for the patient`s fever, for example. Pleura and Pleural spaces: No significant pleural effusion. No pneumothorax. Mediastinum: Unchanged cardiomediastinal silhouette. Bony Thorax and Soft Tissues: No significant incidental findings. IMPRESSION: Low lung volumes accentuate the pulmonary vascular markings. No focal consolidation to indicate bronchopneumonia as the cause for the patient`s fever, for example. Incidental findings described in the body of the report. Dictated by Joshua Al MD @ 02/01/2025 11:24:38 AM (Electronic Signature)
--- NOTE | 2025-02-01 10:59 | ED.GENADULT ---
HPI - General Adult General Date Seen: 02/01/25 Chief complaint: Fever Stated complaint: possible sepsis Time Seen by Provider: 02/01/25 10:17 History of Present Illness HPI narrative: Patient is an 79-year-old sent here from [facility] because of concerns about possible infection. She reportedly had a fever there this morning of 100.6. They noted that she seemed a little confused, thought she was this morning. She had apparently a COVID and flu shot a couple of days ago. She has had some cough and congestion. She does not report any complaints to me although she does have a significant cough here. She says that she does not feel that she has been confused. She denies any chest pain or abdominal pain. Denies any nausea. Related Data Home Medications ?Medication ?Instructions ?Recorded ?Confirmed metoprolol succinate 25 mg 12.5 mg PO QDAY 03/18/24 02/01/25 tablet,extended release 24 hr pantoprazole 40 mg tablet,delayed 40 mg PO QDAY 03/18/24 02/01/25 release rosuvastatin 5 mg tablet 2.5 mg PO QDAY 03/18/24 02/01/25 losartan 100 mg tablet 100 mg PO QDAY 11/11/24 02/01/25 mirtazapine 30 mg tablet 30 mg PO QDAY 11/11/24 02/01/25 apixaban 2.5 mg tablet (Eliquis) 2.5 mg PO BID 02/01/25 02/01/25 calcium carbonate (Calcium Antacid) mg PO 02/01/25 carvedilol 25 mg tablet 25 mg PO BID 02/01/25 02/01/25 folic acid 1 mg tablet 1 mg PO DAILY 02/01/25 02/01/25 guaifenesin 600 mg tablet, mg PO 02/01/25 extended release 12 hr (Mucus Relief ER) hydromorphone 2 mg tablet mg PO 02/01/25 mirtazapine 45 mg tablet 30 mg PO QPM 02/01/25 02/01/25 ondansetron HCl 8 mg tablet mg PO 02/01/25 sennosides 8.6 mg tablet (senna) mg PO 02/01/25 torsemide 20 mg tablet 80 mg PO 02/01/25 Allergies Allergy/AdvReac Type Severity Reaction Status Date / Time simvastatin AdvReac Intermediate Joint Pain Verified 02/01/25 10:21 Review of Systems Status of ROS: Reports: 6 or more systems reviewed and unremarkable except as noted in History and below [facility] Medical History POLST (Physician Orders for Life-Sustaining Treatment) ?Z78.9 - Other specified health status (ICD-10) Stage 5 chronic kidney disease due to hypertension ?I12.0 - Hypertensive chronic kidney disease with stage 5 chronic kidney disease or end stage renal disease (ICD-10) ?N18.5 - Chronic kidney disease, stage 5 (ICD-10) Anemia ?D64.9 - Anemia, unspecified (ICD-10) Surgical History History of total hip arthroplasty ?Z96.649 - Presence of unspecified artificial hip joint (ICD-10) Status post hip replacement ?Z96.649 - Presence of unspecified artificial hip joint (ICD-10) History of dilation and curettage (12/08/10) ?Z98.890 - Other specified postprocedural states (ICD-10) History of colonoscopy ?Z98.890 - Other specified postprocedural states (ICD-10) History of carotid endarterectomy ?Z98.890 - Other specified postprocedural states (ICD-10) Social History Smoking Status: Never smoker Do you use any of these nicotine containing products: None Second hand tobacco smoke exposure: No How often do you have a drink containing alcohol: monthly or less How many standard drinks containing alcohol do you have on a typical day: 1 or 2 How often do you have six or more drinks on one occasion: Never AUDIT-C Alcohol total score: 1 Non-prescribed substance use: denies use Caffeine: No service: No Exam Narrative: Exam Narrative: Vital signs reviewed In general, alert, nontoxic Head: Normocephalic, atraumatic. Eyes: Sclera clear. Pupils equal and reactive. ENT: Mucous membranes moist. Neck: Supple without adenopathy. Heart: Regular rate and rhythm without murmur. Lungs: She has rhonchi and wheezes noted on both sides, right greater than left. No increased work of breathing. Frequent coughing. She has a dialysis port in her right upper chest. No erythema or swelling, no discharge. Abdomen: Soft, nontender to palpation. Extremities: She has pneumatic compression boots on both legs. Neurologic: Alert, answers questions appropriately. Does not do a lot of talking otherwise. She was able to tell me where she was and was able to tell me the president. Was not able to tell me the year. Speech fluent, face symmetric. Skin: Warm, dry well perfused. Affect: Normal. Const: Vital Signs, click to edit/add: Vital Signs - 24 hr 02/01/25 09:56 02/01/25 10:01 02/01/25 10:31 Temperature 98.9 F Pulse Rate Pulse Rate [Pulse Oximeter] 90 Respiratory Rate 18 Blood Pressure 196/87 H 196/88 H Blood Pressure [Le ft Upper Arm] 189/116 H Pulse Oximetry 95 Oxygen Delivery Me thod Room Air 02/01/25 10:40 02/01/25 10:57 02/01/25 11:00 Temperature 99.8 F H Pulse Rate 92 92 Pulse Rate [Pulse Oximeter] Respiratory Rate Blood Pressure Blood Pressure [Le ft Upper Arm] Pulse Oximetry 95 95 Oxygen Delivery Me thod 02/01/25 11:15 02/01/25 11:25 02/01/25 11:35 Temperature 99.8 F H Pulse Rate 89 87 Pulse Rate [Pulse Oximeter] 87 Respiratory Rate Blood Pressure Blood Pressure [Le ft Upper Arm] Pulse Oximetry 95 93 96 Oxygen Delivery Me thod Room Air 02/01/25 12:15 02/01/25 12:30 02/01/25 13:00 Temperature Pulse Rate 86 85 87 Pulse Rate [Pulse Oximeter] Respiratory Rate Blood Pressure Blood Pressure [Le ft Upper Arm] Pulse Oximetry 97 100 97 Oxygen Delivery Me thod 02/01/25 13:37 02/01/25 13:38 02/01/25 13:45 Temperature Pulse Rate 98 92 Pulse Rate [Pulse Oximeter] Respiratory Rate Blood Pressure 211/94 H Blood Pressure [Le ft Upper Arm] Pulse Oximetry 98 96 Oxygen Delivery Me thod 02/01/25 14:02 02/01/25 14:31 02/01/25 14:32 Temperature Pulse Rate 86 88 Pulse Rate [Pulse Oximeter] Respiratory Rate 16 Blood Pressure 193/76 H 200/98 H Blood Pressure [Le ft Upper Arm] Pulse Oximetry 95 94 Oxygen Delivery Me thod 02/01/25 15:02 02/01/25 15:15 Temperature Pulse Rate 87 85 Pulse Rate [Pulse Oximeter] Respiratory Rate Blood Pressure 211/87 H Blood Pressure [Le ft Upper Arm] Pulse Oximetry 100 100 Oxygen Delivery Me thod Course Course ED Course: Patient is nontoxic in appearance, reported fever at the care facility, afebrile here. She does seem to have a fairly significant cough and adventitious lung sounds, diagnostic considerations would be a pneumonia, congestive heart failure, viral process, acute coronary syndrome,metabolic derangement, among others. She had an EKG, this showed a sinus rhythm, ventricular rate of [address] segment changes, unremarkable T-waves. We had significant difficulty getting blood for testing. Her daughter is actually 1 of the lab techs and spent quite a long time trying to get some blood unsuccessfully. We were likewise not able to establish IV. Ultimately, I did a femoral stick on the left to obtain blood. We also did a cath UA. Urinalysis is fairly unremarkable, she has 2+ ketones, 1+ blood, 2-5 reds, 0-2 whites, certainly not suggestive of bacterial infection. Her lab work showed a white blood cell count minimally elevated at 11.7, hemoglobin of 10.5. Metabolic panel is notable for an elevated BUN and creatinine as would be expected given her end-stage renal disease. Her troponin was 0.06, given that drawing a repeat troponin would require another femoral stick, I am hesitant to do that. Her blood was actually drawn about 4 hours after her arrival here because of delays in obtaining blood, and I suspect this very minimal elevation in her troponin is related to her renal disease and not acute coronary syndrome. I elected to do a CT scan to look for any kind of developing pneumonia, by my review this did not show any consolidation, radiology notes some fibrosis which is stable and no other acute findings. Her daughter feels that sometimes she gets confused, wonders if it is medication related. Does not have any other specific complaints. She did not develop a fever while here in the emergency department. I think it is reasonable to let her go back to [facility]. Certainly will have her come back if she seems to be having more difficulty or develops persistent fever. Otherwise, recommend that she be seen by primary care in the next day or 2 to make sure that she is returning to baseline. Vital Signs Vital signs: Initial Vital Signs Temperature 98.9 F 02/01/25 09:56 Temperature Source Temporal Artery Scan 02/01/25 09:56 Pulse Rate 90 02/01/25 09:56 Respiratory Rate 18 02/01/25 09:56 Blood Pressure 189/116 H 02/01/25 09:56 Blood Pressure Mean 140 H 02/01/25 09:56 Blood Pressure Position Sitting 02/01/25 09:56 Pulse Oximetry 95 02/01/25 09:56 Oxygen Delivery Method Room Air 02/01/25 09:56 Vital Signs Temperature 98.9 F 02/01/25 09:56 Pulse Rate 90 02/01/25 09:56 Respiratory Rate 18 02/01/25 09:56 Blood Pressure 189/116 H 02/01/25 09:56 Pulse Oximetry 95 02/01/25 09:56 Oxygen Delivery Method Room Air 02/01/25 09:56 Temperature 99.8 F H 02/01/25 11:25 Pulse Rate 85 02/01/25 15:15 Respiratory Rate 16 02/01/25 14:31 Blood Pressure 211/87 H 02/01/25 15:02 Pulse Oximetry 100 02/01/25 15:15 Oxygen Delivery Method Room Air 02/01/25 11:25 Medical Decision Making Lab Data Lab results reviewed: Yes I reviewed the patient's lab results Labs: Lab Results 02/01/25 02/01/25 02/01/25 Range/Units 10:30 10:50 13:30 WBC (4.50-11.00) K/uL RBC (4.00-5.20) m/uL Hgb (12.0-16.0) gm/dL Hct (33.0-51.0) % MCV (80-100) fL MCH (26-34) pg MCHC (32-36) gm/dL RDW Coeff of Dutch (11.5-15.5) % Plt Count (140-440) K/uL Neut % (Auto) (42.0-72.0) % Lymph % (Auto) (20-44) % Mcculloch % (Auto) (0.0-11.0) % Eos % (Auto) (0.0-7.0) % Baso % (Auto) (0.0-3.0) % Neut # (Auto) (1.7-7.0) K/uL Lymph # (Auto) (0.90-2.90) K/uL Mcculloch # (Auto) (0.00-0.90) K/UL Eos # (Auto) (0.00-0.50) K/uL Baso # (Auto) (0.00-0.30) K/uL Abs Immat Gran (auto) (0.00-0.30) K/uL Imm/Tot Granulo (auto) % Diff Slide Review (Acceptable) Sodium (135-149) mmol/L Potassium (3.6-5.1) mmol/L Chloride (96-114) mmol/L Carbon Dioxide (20-32) mmol/L Anion Gap (7-15) mEq/L BUN (7-30) mg/dL Creatinine (0.5-1.5) mg/dL Estimated Creat Clear Estimated GFR ml/min Glucose (60-115) mg/dL Lactate (0.5-1.9) mmol/L Calcium (8.4-10.6) mg/dL Total Bilirubin (0.1-1.5) mg/dL Direct Bilirubin (0.0-0.5) mg/dL AST (12-35) U/L ALT (4-35) U/L Alkaline Phosphatase (40-150) U/L C-Reactive Protein (0.5-1.0) mg/dL NT-Pro-B Natriuret Pep (See Note) pg/mL Total Protein (6.0-8.3) g/dL Albumin (3.3-5.0) g/dL Urine Color Yellow (Yellow) Urine Appearance Clear (Clear) Urine pH 8.5 (5.0-8.5) Ur Specific [place] 1.020 (1.000-1.030) Urine Protein 3+ A (Negative) Urine Glucose (UA) Trace A (Negative) Urine Ketones 2+ A (Negative) Urine Blood 1+ A (Negative) Urine Nitrite Negative (Negative) Urine Bilirubin Negative (Negative) Urine Urobilinogen 0.2 (0.2-1.0) Ur Leukocyte Esterase Negative (Negative) Urine RBC 2-5 A (0-2) Urine WBC 0-2 (0-5) Ur Squamous Epith Cells Few (None-Few) Urine Bacteria Few A (None) SARS-CoV-2 (PCR) Negative SARS-CoV-2 (Negative) Influenza Type A (PCR) Negative PCR FLU A (Negative) Influenza Type B (PCR) Negative PCR FLU B (Negative) RSV (PCR) Negative PCR RSV (Negative) POC Troponin I 0.06 H (0.01-0.04) ng/ml 02/01/25 Range/Units 13:58 WBC 11.72 H (4.50-11.00) K/uL RBC 3.40 L (4.00-5.20) m/uL Hgb 10.5 L (12.0-16.0) gm/dL Hct 32.7 L (33.0-51.0) % MCV 96 (80-100) fL MCH 31 (26-34) pg MCHC 32 (32-36) gm/dL RDW Coeff of Dutch 15.0 (11.5-15.5) % Plt Count 199 (140-440) K/uL Neut % (Auto) 86.8 H (42.0-72.0) % Lymph % (Auto) 9.6 L (20-44) % Mcculloch % (Auto) 2.9 (0.0-11.0) % Eos % (Auto) 0.1 (0.0-7.0) % Baso % (Auto) 0.3 (0.0-3.0) % Neut # (Auto) 10.20 H (1.7-7.0) K/uL Lymph # (Auto) 1.10 (0.90-2.90) K/uL Mcculloch # (Auto) 0.30 (0.00-0.90) K/UL Eos # (Auto) 0.00 (0.00-0.50) K/uL Baso # (Auto) 0.00 (0.00-0.30) K/uL Abs Immat Gran (auto) 0.00 (0.00-0.30) K/uL Imm/Tot Granulo (auto) 0.3 % Diff Slide Review Acceptable Review (Acceptable) Sodium 130 L (135-149) mmol/L Potassium 4.8 (3.6-5.1) mmol/L Chloride 93 L (96-114) mmol/L Carbon Dioxide 24 (20-32) mmol/L Anion Gap 13 (7-15) mEq/L BUN 34 H (7-30) mg/dL Creatinine 4.2 H (0.5-1.5) mg/dL Estimated Creat Clear 8.69 Estimated GFR 10 ml/min Glucose 99 (60-115) mg/dL Lactate 1.2 (0.5-1.9) mmol/L Calcium 9.0 (8.4-10.6) mg/dL Total Bilirubin 0.9 (0.1-1.5) mg/dL Direct Bilirubin 0.9 H (0.0-0.5) mg/dL AST 32 (12-35) U/L ALT 12 (4-35) U/L Alkaline Phosphatase 73 (40-150) U/L C-Reactive Protein 5.3 H (0.5-1.0) mg/dL NT-Pro-B Natriuret Pep 21502 H (See Note) pg/mL Total Protein 7.2 (6.0-8.3) g/dL Albumin 4.0 (3.3-5.0) g/dL Urine Color (Yellow) Urine Appearance (Clear) Urine pH (5.0-8.5) Ur Specific [place] (1.000-1.030) Urine Protein (Negative) Urine Glucose (UA) (Negative) Urine Ketones (Negative) Urine Blood (Negative) Urine Nitrite (Negative) Urine Bilirubin (Negative) Urine Urobilinogen (0.2-1.0) Ur Leukocyte Esterase (Negative) Urine RBC (0-2) Urine WBC (0-5) Ur Squamous Epith Cells (None-Few) Urine Bacteria (None) SARS-CoV-2 (PCR) (Negative) Influenza Type A (PCR) (Negative) Influenza Type B (PCR) (Negative) RSV (PCR) (Negative) POC Troponin I (0.01-0.04) ng/ml Imaging Data CT scan - chest: Attestation: I have reviewed the pertinent imaging results. Radiologist's impression: Patient: Courtney Berry MR#: [id number] : 1945 Acct:[id number] Loc: ED Service Date: 02/01/[address]: Ordering Physician: Ting Lutz M.D. Date of Service: 02/01/25 Procedure(s): CT chest wo con Accession Number(s): [id number] cc: Ting Lutz M.D.; Provider,Not a Local~ For Patients: As a result of the 21st Century Cures Act, medical imaging exams and procedure reports are released immediately into your electronic medical record. You may view this report before your referring provider. If you have questions, please contact your health care provider. INDICATION: Cough shortness of breath TECHNIQUE: CT chest without contrast. COMPARISON: CT 06/13/2024 FINDINGS: Respiratory motion limits evaluation. Basilar predominant subpleural reticulation and ground-glass likely reflecting fibrosis. There is basilar bronchiectasis bronchiolectasis. A 3 millimeter right perifissural nodule stable . Basilar honeycombing. Heart and vasculature: Heart size is normal. Thoracic aorta and pulmonary artery are normal in caliber. AVR dense coronary calcification. Lymph nodes/mediastinum: No mediastinal, hilar, or axillary adenopathy. Chest wall: No masses. Upper abdomen: Small hiatal hernia. Percutaneous gastrostomy tube partially seen. Low-attenuation lesion in the liver incompletely assessed. Cortical scarring of the left kidney low-attenuation lesions left kidney incompletely assessed Bones: Unremarkable for age. IMPRESSION: 1. No acute pulmonary findings. Similar findings of pulmonary fibrosis. Please note that all CT scans at this facility use dose modulation, iterative reconstruction, and/or weight-based dosing when appropriate to reduce radiation dose to as low as reasonably achievable. Dictated by Elma Peraza MD @ 02/01/2025 3:32:32 PM Discharge Plan Discharge Clinical Impression: Confusion Patient Disposition: Xfer SNF Condition: Stable Additional Instructions: Lab tests today are all fairly normal, considering her end-stage renal disease. She did not have a fever while here in the emergency department. She is due for dialysis tomorrow, electrolytes are reasonable today. Her viral swab was negative, there is no evidence of urinary tract infection or pneumonia. If she is getting worse, bring her back for re-evaluation. Otherwise, primary care should see her in the next day or 2 to make sure she is improving. Prescriptions: No Action mirtazapine 30 mg tablet 30 mg PO QDAY losartan 100 mg tablet 100 mg PO QDAY metoprolol succinate 25 mg tablet extended release 24 hr 12.5 mg PO QDAY pantoprazole 40 mg tablet,delayed release (DR/EC) 40 mg PO QDAY rosuvastatin 5 mg tablet 2.5 mg PO QDAY hydromorphone 2 mg tablet PO mirtazapine 45 mg tablet 30 mg PO QPM folic acid 1 mg tablet 1 mg PO DAILY torsemide 20 mg tablet 80 mg PO Patient Comments: every , , Sun and Sunday ondansetron HCl 8 mg tablet PO guaifenesin [Mucus Relief ER] 600 mg tablet extended release 12hr PO carvedilol 25 mg tablet 25 mg PO BID sennosides [senna] 8.6 mg tablet PO calcium carbonate [Calcium Antacid] 200 mg calcium (500 mg) tablet,chewable PO Eliquis 2.5 mg tablet 2.5 mg PO BID Stand Alone Forms: [facility] Info Instructions
[2025-02-01 11:35] LABS: PCR FLU A Negative PCR FLU A (Negative); PCR FLU B Negative PCR FLU B (Negative); PCR RSV Negative PCR RSV (Negative); SARS PCR* Negative SARS-CoV-2 (Negative)
[2025-02-01 13:40] LABS: Appearance Urine Clear (Clear)
[2025-02-01 14:13] LABS: Lactate Sepsis w/Reflex* 1.2 mmol/L (0.5-1.9)
[2025-02-01 14:14] LABS: Troponin, Point-of-Care* 0.06 ng/ml (0.01-0.04)
[2025-02-01 14:29] LABS: Hematocrit* 32.7 % (33.0-51.0); Hemoglobin* 10.5 gm/dL (12.0-16.0); Immature Granulocytes Pct Auto 0.3 %; Mean Corpuscular HGB Conc 32 gm/dL (32-36); Mean Corpuscular Hemoglobin 31 pg (26-34); Mean Corpuscular Volume 96 fL (80-100); RDW Coefficient of Variation % 15.0 % (11.5-15.5); Red Blood Count* 3.40 m/uL (4.00-5.20); White Blood Count* 11.72 K/uL (4.50-11.00)
[2025-02-01 14:31] LABS: Albumin* 4.0 g/dL (3.3-5.0); Chloride* 93 mmol/L (96-114); Potassium* 4.8 mmol/L (3.6-5.1); Sodium* 130 mmol/L (135-149)
[2025-02-01 14:32] LABS: Immature Granulocytes Abs Auto 0.00 K/uL (0.00-0.30); Lymphocytes Absolute Auto 1.10 K/uL (0.90-2.90); Slide Review Reflex Yes
[2025-02-01 14:34] LABS: Alanine Aminotransferase* 12 U/L (4-35); Alkaline Phosphatase* 73 U/L (40-150); Anion Gap 13 mEq/L (7-15); Aspartate Amino Transferase* 32 U/L (12-35); Bilirubin Direct* 0.9 mg/dL (0.0-0.5); Bilirubin Total* 0.9 mg/dL (0.1-1.5); Blood Urea Nitrogen* 34 mg/dL (7-30); Carbon Dioxide* 24 mmol/L (20-32); Creatinine* 4.2 mg/dL (0.5-1.5); Est. Creatinine Clearance* 8.69; Estimated Glomerular Filt Rate 10 ml/min; Total Protein* 7.2 g/dL (6.0-8.3)
[2025-02-01 14:35] LABS: Calcium* 9.0 mg/dL (8.4-10.6); Glucose* 99 mg/dL (60-115)
--- NOTE | 2025-02-01 14:40 | CRLHL7_ITS ---
For Patients: As a result of the Century Cures Act, medical imaging exams and procedure reports are released immediately into your electronic medical record. You may view this report before your referring provider. If you have questions, please contact your health care provider. INDICATION: Cough shortness of breath TECHNIQUE: CT chest without contrast. COMPARISON: CT 06/13/2024 FINDINGS: Respiratory motion limits evaluation. Basilar predominant subpleural reticulation and ground-glass likely reflecting fibrosis. There is basilar bronchiectasis bronchiolectasis. A 3 millimeter right perifissural nodule stable . Basilar honeycombing. Heart and vasculature: Heart size is normal. Thoracic aorta and pulmonary artery are normal in caliber. AVR dense coronary calcification. Lymph nodes/mediastinum: No mediastinal, hilar, or axillary adenopathy. Chest wall: No masses. Upper abdomen: Small hiatal hernia. Percutaneous gastrostomy tube partially seen. Low-attenuation lesion in the liver incompletely assessed. Cortical scarring of the left kidney low-attenuation lesions left kidney incompletely assessed Bones: Unremarkable for age. IMPRESSION: 1. No acute pulmonary findings. Similar findings of pulmonary fibrosis. Please note that all CT scans at this facility use dose modulation, iterative reconstruction, and/or weight-based dosing when appropriate to reduce radiation dose to as low as reasonably achievable. Dictated by Elma Peraza MD @ 02/01/2025 3:32:32 PM (Electronically Signed)
[2025-02-01 14:44] LABS: NT Pro B Type NatriureticPept* 20400 pg/mL (See Note)
[2025-02-01 15:17] LABS: Slide Review Acceptable Review (Acceptable)
--- OUTSIDE RECORDS SUMMARY | 2025-02-02 14:09 | XMS_ITS | Clinical Summary ---
Author Organization [facility] Address [address] [place] [id number] Care Team Providers Care Spacecraft Systems Engineer Name Role Phone Eusebia Whitaker MD Primary Care Provider [phone] Allergies No known active allergies Medications carvedilol [...] of Treatment Not on file Care Teams Spacecraft Systems Engineer Relationship Specialty Start Date End Date Eusebia Whitaker MD [facility] [address] [place] [id number] PCP - General Family Practice 09/25/19
--- OUTSIDE RECORDS SUMMARY | 2025-02-02 14:09 | XMS_ITS | Clinical Summary ---
Author Organization [facility] Address [address] [place] [id number] Care Team Providers Care Computer Technical Specialist Name Role Phone Erickson Vinson MD Primary [...] mg OralDAILY AFTERNOON, Indications: folate deficiency, Informant: [facility], Reported on 06/22/2024 pantoprazole (PROTONIX) 40 [...] (06/26/2023): Added automatically from request for surgery [id number] Subacute bacterial endocarditis 11/30/2021 PAF (paroxysmal atrial [...] Description 01/14/2025 2:00 PM CDT Ancillary Procedure [facility] [address] [place] [address] from Last 3 Months Family History Medical [...] on file Legal Sex Female 6:20 AM KNIFE CHANGER Gender Identity Not on file Sexual Orientation [...] 154.9 cm (5' 1) 06/14/2024 10:28 AM KNIFE CHANGER Body Mass Index 34.5 06/14/2024 10:28 AM KNIFE CHANGER Plan of Treatment Health Maintenance Due Date [...] 05/01/2024 05/01/2023, 05/09/2022, 05/02/2022, Additional history exists Influenza Vaccine (#1) 2024 DEXA/DXA scan for [...] Tech: ULICES Referring MD: GREG WEEKS Site: [facility] Reading Location: Mobile OP [...] interpreted by an IAC accredited facility. CC: [facility] ([facility]. Final Procedure Note [address], [facility] - 01/14/2025 ECHOCARDIOGRAM CYNTHIA BERRY : 1945 79 years Study Date: 01/14/2025 2:11:22 PM Gender: F BP: 134/95 mmHg Height: 157.00 cm BSA: 1.85 m Weight: 84.00 kg Tech: ULICES Referring MD: GREG WEEKS Site: [facility] Reading Location: Mobile OP [...] interpreted by an IAC accredited facility. CC: [facility] (med records) [facility]. Final us Greg Weeks DO ECHO ORD Final Resul t * SCAN-BONE DENSITOMETRY DEXA (12/02/2018 12:00 AM CDT) Anatomical Region Laterality Modality Other us Scanner OTHER Final Result from Last 3 Months or Most Recently Relevant to Health Maintenance Insurance MEDICARE PART A HB ONLY [facility] Advance Directives Documents on File Type Date Recorded Patient Lpta Expl anation POLST 12/01/2021 * Full Code [...] Comments Code Status Discussion: Other Care Teams Computer Technical Specialist Relationship Specialty Start Date End Date Erickson Vinson MD [address] [place] [id number] PCP - General Family Practice 02/01/23
== END 2025-02-01 16:57 | disposition other institution (70) ==
PROVIDERS: Emergency Provider Emergency Medicine
DX: R41.0 Disorientation, unspecified (principal); R05.1 Acute cough; R06.02 Shortness of breath; R82.90 Unspecified abnormal findings in urine
CPT/HCPCS: 36415; 71045; 71250; 80048; 80076; 81001; 83605; 83880; 84484; 85025; 86140; 87040; 87086; 87631; 93005; 99284; 99285

== ENCOUNTER 2025-02-01 16:51 | Outpatient (CLI) | payer OTHER, SELFPAY | END 2025-02-01 16:52 | disposition home or self-care (01) | LOC: AMB 02-03 14:38 | PROVIDERS: Visit Provider Family Medicine | DX: R41.0 Disorientation, unspecified (principal); N18.5 Chronic kidney disease, stage 5 | CPT/HCPCS: A0425; A0428 ==